=== PATIENT | male | born 1955 | race American Indian/Alaskan Native ===

== ENCOUNTER 2016-12-13 02:07 | Observation (INO) | payer MEDICAID ==
[2016-12-13 02:07] VITALS: BMI 25.5
--- NOTE | 2016-12-13 02:31 | C.PDOC ---
History Of Present Illness pt has been drinking heavily and fell. co. left chest wall discomfort and right hip pain. Denies loc. remembers falling at home. Speaking in complete sentences - HPI Time Seen by Provider: 12/13/16 02:30 Chief Complaint (Nursing): Trauma History Per: Patient History/Exam Limitations: no limitations Onset/Duration Of Symptoms: Hrs Injury Occurred (Timing): Hours Ago: (3-4) Location Of Injury: Right: Hip, Left: Chest Severity: Moderate Pain Scale Rating Of: 4 Recent travel outside of the [place]: No Additional History Per: Patient - Fall Fall:Prior To Injury: Other (alcohol abuse) Past Medical History Reviewed: Historical Data, Nursing Documentation, Vital Signs Vital Signs: Last Vital Signs Temp 97.5 F L 12/13/16 02:16 Pulse 81 12/13/16 02:16 Resp 14 12/13/16 02:16 BP 121/76 12/13/16 02:16 Pulse Ox 96 12/13/16 05:40 - Medical History PMH: Arthritis (B/L KNEE PAIN), Depression, Gastritis, HTN, Pancreatitis, Peripheral Edema, Seizures (April,) Denies: HIV, Kidney Stones, Chronic Kidney Disease, Sexually Transmitted Disease - [facility] Procedures ALCOHOL DETOXIFICATION (05/03/13) DETOXIFICATION SERVICES FOR SUBSTANCE ABUSE TREATMENT (11/26/16) EXCISION OF DESCENDING COLON, ENDO, DIAGN (03/14/16) EXCISION OF STOMACH, ENDO, DIAGN (11/26/16) GROUP PSYCHOTHERAPY (01/24/16) TRANSFUSE NONAUT RED BLOOD CELLS IN PERIPH VEIN, PERC (07/28/16) Family History: States: No Known Family Hx - Social History Hx Tobacco Use: No (quit 2 months now) Hx Alcohol Use: Yes (1/2 to 1 pint vodka per day.) Hx Substance Use: No (Patient denies.) - Immunization History Hx Tetanus Toxoid Vaccination: No Hx Influenza Vaccination: No Hx Pneumococcal Vaccination: No Review Of Systems Constitutional: Negative for: Fever, Chills ENT: Negative for: Throat Pain Cardiovascular: Negative for: Chest Pain, Palpitations Respiratory: Negative for: Shortness of Breath, SOB with Excertion, Pleuritic Pain, Wheezing Gastrointestinal: Negative for: Nausea, Vomiting, Abdominal Pain Genitourinary: Negative for: Dysuria Musculoskeletal: Positive for: Other (r hip pain). Negative for: Neck Pain, Shoulder Pain, Back Pain Skin: Negative for: Rash, Lesions, Jaundice Neurological: Negative for: Weakness, Altered Mental Status, Dizziness Psych: Negative for: Anxiety Physical Exam - Physical Exam Appears: Non-toxic, No Acute Distress Skin: Warm, Dry Head: Normacephalic Eye(s): bilateral: Normal Inspection Oral Mucosa: Moist Neck: Trachea Midline, No Midline Cervical Tenderness, No Step Off Deformity, Supple Chest: Symmetrical, No Deformity, No Tenderness Cardiovascular: Rhythm Regular Respiratory: No Rales, No Rhonchi, No Wheezing Gastrointestinal/Abdominal: Soft, No Tenderness, No Distention, No Guarding, No Rebound Back: Normal Inspection Extremity: Tenderness (r hip), No Calf Tenderness Extremity: Right: Bony Point Tenderness (hip), Limited ROM To Joint (due to discomfort) Neurological/Psych: Oriented x3, Normal Speech, Normal Cognition Gait: Unable To Assess ED Course And Treatment - Laboratory Results Result Diagrams: 12/13/16 03:00 12/13/16 03:00 O2 Sat by Pulse Oximetry: 96 Pulse Ox Interpretation: Normal - CT Scan/US CT Other Rad Studies (CT/US): Read By Radiologist, Radiology Report Reviewed CT/US Interpretation: CT Head IMPRESSION: 1. No intracranial hemorrhage. 2. Incidental/non-acute findings. CT Cervical IMPRESSION: 1. No fracture. 2. Incidental/non-acute findings. CT Hip IMPRESSION: 1. No fracture. 2. Incidental/non-acute findings. CT Chest Impression: 1. No CT evidence of visceral injury. 2. Incidental/non-acute findings. CT Abdomen/Pelvis IMPRESSION: 1. No CT evidence of visceral injury. 2. Incidental/non-acute findings Progress Note: 2:20 pt refused motrin for pain Disposition Counseled Patient/Family Regarding: Studies Performed, Diagnosis, Need For Followup - Disposition Disposition Time: 02:31 Condition: FAIR - Clinical Impression Clinical Impression: Alcohol abuse, Alcohol intoxication, Contusion, Fall Physician Patient Turnover Patient Signed Over To: Jennifer Lott Handoff Comments: pending sobriety
[2016-12-13] MEDS ORDERED: Sodium Chloride 0.9% 1,000 ML IV ONE (02:39)
[2016-12-13 03:08] LABS: BASO # 0.1 K/uL (0.0-0.2); BASO % 1.2 % (0.0-2.0); EOS % 0.2 % (0.0-4.0); HEMATOCRIT 32.9 % (35.0-51.0); LYMPH # 1.3 K/uL (1.0-4.3); LYMPH % 28.2 % (20.0-40.0); MEAN CELL VOLUME 93.9 fL (80.0-94.0); MEAN CORPUSCULAR HEMOGLOBIN 30.9 pg (27.0-31.0); MEAN PLATELET VOLUME 9.8 fL (7.2-11.7); MONO # 0.3 K/uL (0.0-0.8); MONO % 5.9 % (0.0-10.0); NRBC % 0.1 % (0.0-2.0); RED CELL DISTRIBUTION WIDTH 15.1 % (11.5-14.5); WHITE BLOOD COUNT 4.5 K/uL (4.8-10.8)
[2016-12-13 03:22] LABS: CHLORIDE 96 mmol/L (98-107)
[2016-12-13 03:23] LABS: POTASSIUM 4.7 mmol/L (3.6-5.2); SODIUM 146 mmol/L (132-148)
[2016-12-13 03:25] LABS: ALB/GLOB RATIO 1.3 (1.0-2.1); ALKALINE PHOSPHATASE 77 U/L (38-126); ALT/SGPT 44 U/L (21-72); AST/SGOT 139 U/L (17-59); BILIRUBIN,TOTAL 1.3 mg/dL (0.2-1.3); BLOOD UREA NITROGEN 23 mg/dL (9-20); CARBON DIOXIDE 18 mmol/L (22-30); GFR AFRICAN-AMERICAN > 60; GLUCOSE,RANDOM 48 mg/dL (75-110); TOTAL PROTEIN 8.6 g/dL (6.3-8.3)
[2016-12-13 03:26] LABS: CALCIUM 8.6 mg/dl (8.6-10.4)
[2016-12-13 03:40] LABS: ALCOHOL SERUM 385 mg/dl (0-10)
--- NOTE | 2016-12-13 05:21 | CT ---
EXAM: CT Head Without Intravenous Contrast. CLINICAL HISTORY: 61 years old, male; Pain; Headache; Patient HX: 11-26-16; Additional info: Fall, alcoholic TECHNIQUE: Axial computed tomography images of the head/brain without intravenous contrast. This CT exam was performed using one or more of the following dose reduction techniques: automated exposure control, adjustment of the mA and/or kV according to patient size, and/or use of iterative reconstruction technique. COMPARISON: CT - HEAD W/O CONTRAST 11/26/2016 9:54:11 PM FINDINGS: Brain: [id number] atrophy. No intracranial hemorrhage. No mass. No edema. Ventricles: No hydrocephalus. Bones/joints: No acute fracture. Soft tissues: Mild scalp swelling. Sinuses: No acute sinusitis. Mastoid air cells: No mastoid effusion. Orbits: Unremarkable as visualized. IMPRESSION: 1. No intracranial hemorrhage. 2. Incidental/non-acute findings are described above.
--- NOTE | 2016-12-13 05:27 | CT ---
EXAM: CT Cervical Spine Without Intravenous Contrast. CLINICAL HISTORY: 61 years old, male; Pain; Neck pain; Additional info: Fall alcoholic TECHNIQUE: Axial computed tomography images of the cervical spine without intravenous contrast. This CT exam was performed using one or more of the following dose reduction techniques: automated exposure control, adjustment of the mA and/or kV according to patient size, and/or use of iterative reconstruction technique. Coronal and sagittal reformatted images were created and reviewed. COMPARISON: No relevant prior studies available. FINDINGS: Vertebrae: No acute fracture. Degenerative retrolithesis of mid and lower cervical spine. Facet osteoarthrosis within cervical spine. Discs/spinal canal/neural foramina: Severe degenerative disc disease within mid and lower cervical spine. Disc herniations within mid to lower cervical spine, suboptimally evaluated. Mild indentation thecal sac/cord mid cervical spine. Moderate indentation thecal sac/cord lower cervical spine. Neural foraminal narrowing within mid and lower cervical spine. Soft tissues: Unremarkable. Lung apices: Unremarkable as visualized. IMPRESSION: 1. No fracture. 2. Incidental/non-acute findings are described above.
--- NOTE | 2016-12-13 05:29 | CT ---
EXAM: CT Right Lower Extremity Without Intravenous Contrast, Hip. CLINICAL HISTORY: 61 years old, male; Pain; Hip; Right; Patient HX: 10-27-16; Additional info: Fall TECHNIQUE: Axial computed tomography images of the right hip without intravenous contrast. This CT exam was performed using one or more of the following dose reduction techniques: automated exposure control, adjustment of the mA and/or kV according to patient size, and/or use of iterative reconstruction technique. Coronal and sagittal reformatted images were created and reviewed. COMPARISON: CT - ABD PELVIS PO CONTRAST ONLY 11/10/2016 11:07:09 PM FINDINGS: Bones/joints: No acute fracture. No dislocation. Degenerative changes of lower lumbar spine and RIGHT sacroiliac joint. Soft tissues: Unremarkable. Vasculature: Mild atherosclerotic disease. IMPRESSION: 1. No fracture. 2. Incidental/non-acute findings are described above.
--- NOTE | 2016-12-13 05:34 | CT ---
EXAM: CT Chest Without Intravenous Contrast. CLINICAL HISTORY: 61 years old, male; Pain; Chest pain; Additional info: Fall, alcoholic TECHNIQUE: Axial computed tomography images of the chest without intravenous contrast. This CT exam was performed using one or more of the following dose reduction techniques: automated exposure control, adjustment of the mA and/or kV according to patient size, and/or use of iterative reconstruction technique. Coronal and sagittal reformatted images were created and reviewed. COMPARISON: No relevant prior studies available. FINDINGS: Limitations: Lack of intravenous contrast. Lungs: Minimal atelectasis. No consolidation. Few small cysts or bullae. Pleural space: No pneumothorax. No significant effusion. Heart: No cardiomegaly. No significant pericardial effusion. Bones/joints: No acute fracture. Soft tissues: Unremarkable. Vasculature: Mild atherosclerotic disease of aorta. No aortic aneurysm. Lymph nodes: No pathologically enlarged lymph nodes. Upper abdomen: See abdomen CT report for additional details. IMPRESSION: 1. No CT evidence of visceral injury. 2. Incidental/non-acute findings are described above.
--- NOTE | 2016-12-13 05:38 | CT ---
EXAM: CT Abdomen and Pelvis Without Intravenous Contrast. CLINICAL HISTORY: 61 years old, male; Pain; Abdominal pain; Patient HX: 11-10-16; Additional info: Fall, r hip pain TECHNIQUE: Axial computed tomography images of the abdomen and pelvis without intravenous contrast. This CT exam was performed using one or more of the following dose reduction techniques: automated exposure control, adjustment of the mA and/or kV according to patient size, and/or use of iterative reconstruction technique. Coronal and sagittal reformatted images were created and reviewed. COMPARISON: CT - ABD PELVIS PO CONTRAST ONLY 11/10/2016 11:07:09 PM FINDINGS: Limitations: Lack of intravenous contrast. Lower thorax: See chest CT report for additional details. ABDOMEN: Liver: Fatty infiltration. Gallbladder and bile ducts: No calcified stones. No ductal dilation. Pancreas: Unremarkable. No ductal dilation. Spleen: No splenomegaly. Adrenals: No mass. Kidneys and ureters: No renal calculi. No hydronephrosis. Stomach and bowel: No definite mural thickening. No obstruction. Appendix: No findings to suggest acute appendicitis. PELVIS: Bladder: Unremarkable. No stones. Reproductive: Unremarkable as visualized. ABDOMEN and PELVIS: Intraperitoneal space: No significant fluid collection. No free air. Bones/joints: Degenerative changes of spine. No acute fracture. Soft tissues: Unremarkable. Vasculature: Mild varices within upper abdomen. Mild atherosclerotic disease. No abdominal aortic aneurysm. Lymph nodes: No pathologically enlarged lymph nodes. IMPRESSION: 1. No CT evidence of visceral injury. 2. Incidental/non-acute findings are described above.
[2016-12-13 07:50] VITALS: TEMP 98.1
[2016-12-13] MEDS ORDERED: Aluminum Hydroxide/Magnesium Hydroxide Susp (30 mL) PO STA (07:52)
[2016-12-13] MEDS ORDERED: Sodium Chloride 0.9% 500 ML IV ONE ×2 (07:52→08:03)
[2016-12-13] MEDS ORDERED: Aluminum Hydroxide/Magnesium Hydroxide Susp (30 mL) ONE (08:03)
[2016-12-13 11:04] VITALS: BP 139/88; PULSE 89; RESP 20; O2SAT 99
== END 2016-12-13 09:18 | disposition home or self-care (01) ==
LOC: C.ER 02:07 → C.9OBSV 03:41
PROVIDERS: ADMIT Emergency Medicine; ATTEND Emergency Medicine
DX: F10.220 Alcohol dependence with intoxication, uncomplicated (principal); Y90.8 Blood alcohol level of 240 mg/100 ml or more; S20.212A Contusion of left front wall of thorax, initial encounter; S70.01XA Contusion of right hip, initial encounter; K86.0 Alcohol-induced chronic pancreatitis; I10 Essential (primary) hypertension; G40.909 Epilepsy, unspecified, not intractable, without status epilepticus; M17.0 Bilateral primary osteoarthritis of knee; W19.XXXA Unspecified fall, initial encounter; Y92.009 Unspecified place in unspecified non-institutional (private) residence as the place of occurrence of the external cause

== ENCOUNTER 2016-12-16 01:27 | Inpatient (IN) | payer MEDICAID ==
[2016-12-16 01:27] VITALS: BMI 25.5
[2016-12-16] MEDS ORDERED: Sodium Chloride 0.9% 1,000 ML IV ONE (01:57)
[2016-12-16 02:12] LABS: EOS # 0.1 K/uL (0.0-0.7); LYMPH # 1.3 K/uL (1.0-4.3); MONO # 0.3 K/uL (0.0-0.8)
--- NOTE | 2016-12-16 02:13 | C.PDOC ---
History Of Present Illness 61 year old patient, with a past medical history of chronic pancreatitis, arthritis, hypertension, gastritis, and peripheral edema, presents to the ED complaining of a syncopal episode just prior to arrival. Patient states he was doing dishes and then recalls being on the floor. Patient also complains of mild epigastric pain. Patient had a similar presentation of his symptoms recently. Patient denies chest pain, shortness of breath, nausea, vomiting, diarrhea, back pain, numbness, weakness, or neck pain. Time Seen by Provider: 12/16/16 01:51 Chief Complaint (Nursing): Chest Pain History Per: Patient History/Exam Limitations: no limitations Onset/Duration Of Symptoms: Mins (prior to arrival) Current Symptoms Are (Timing): Gone Number Of Syncopal Episodes: 1 Activity At Onset Of Symptoms: Standing Associated Symptoms Preceding Syncopal Episode: No Predromal Symptoms (Sudden Onset) Fall Associated With With Symptoms: No Injury As Result Of Fall Recent travel outside of the [place]: No Additional History Per: Prior Records Past Medical History Reviewed: Historical Data, Nursing Documentation, Vital Signs Vital Signs: Last Vital Signs Temp 98.3 F 12/16/16 01:39 Pulse 82 12/16/16 04:41 Resp 20 12/16/16 04:41 BP 136/84 12/16/16 01:39 Pulse Ox 100 12/16/16 04:41 - Medical History PMH: Arthritis (B/L KNEE PAIN), Depression, Gastritis, HTN, Pancreatitis, Peripheral Edema, Seizures (April,) - [facility] Procedures ALCOHOL DETOXIFICATION (05/03/13) DETOXIFICATION SERVICES FOR SUBSTANCE ABUSE TREATMENT (11/26/16) EXCISION OF DESCENDING COLON, ENDO, DIAGN (03/14/16) EXCISION OF STOMACH, ENDO, DIAGN (11/26/16) GROUP PSYCHOTHERAPY (01/24/16) TRANSFUSE NONAUT RED BLOOD CELLS IN PERIPH VEIN, PERC (07/28/16) Family History: States: Unknown Family Hx - Social History Hx Tobacco Use: No (quit 2 months now) Hx Alcohol Use: Yes (1/2 to 1 pint vodka per day.) Hx Substance Use: No (Patient denies.) - Immunization History Hx Tetanus Toxoid Vaccination: No Hx Influenza Vaccination: No Hx Pneumococcal Vaccination: No Review Of Systems Except As Marked, All Systems Reviewed And Found Negative. Cardiovascular: Negative for: Chest Pain Respiratory: Negative for: Shortness of Breath Gastrointestinal: Positive for: Abdominal Pain. Negative for: Nausea, Vomiting , Diarrhea Musculoskeletal: Negative for: Neck Pain, Back Pain Neurological: Positive for: Other (syncope). Negative for: Weakness, Numbness Physical Exam - Physical Exam Appears: Non-toxic, No Acute Distress Skin: Warm, Dry Head: Atraumatic, Normacephalic Eye(s): bilateral: Normal Inspection, PERRL, EOMI Ear(s): Bilateral: Normal Nose: Normal Oral Mucosa: Moist Throat: Normal Neck: Normal ROM, Supple Chest: Symmetrical Cardiovascular: Rhythm Regular Respiratory: Normal Breath Sounds, No Rales, No Rhonchi, No Wheezing Gastrointestinal/Abdominal: Soft, Tenderness (mild epigastric) Back: Normal Inspection, No CVA Tenderness Extremity: Normal ROM Neurological/Psych: Oriented x3, Normal Speech, Normal Cognition Gait: Steady ED Course And Treatment - Laboratory Results Result Diagrams: 12/16/16 02:09 12/16/16 02:09 O2 Sat by Pulse Oximetry: 99 (RA) Pulse Ox Interpretation: Normal Medical Decision Making Medical Decision Making: Plan: -Head CT -EKG -Labs -Chest XR -IV fluids EKG: sinus rhythm 65 bpm Non-specific ST/T wave changes Chest XR: negative. no acute disease. Head CT: Read by Radiologist (Rian Clifford MD) EXAM: CT Head Without Intravenous Contrast. CLINICAL HISTORY: 61 years old, male; Pain; Headache; Additional info: Syncope TECHNIQUE: Axial computed tomography images of the head/brain without intravenous contrast. This CT exam was performed using one or more of the following dose reduction techniques: automated exposure control, adjustment of the mA and/or kV according to patient size, and/or use of iterative reconstruction technique. COMPARISON: CT - HEAD W/O CONTRAST 12/13/2016 4:23:48 AM FINDINGS: Brain: [id number] atrophy. No intracranial hemorrhage. No mass. No definite edema. Ventricles: No hydrocephalus. Bones/joints: No acute fracture. Soft tissues: Mild scalp swelling. Sinuses: No acute sinusitis. Mastoid air cells: No mastoid effusion. Orbits: Unremarkable as visualized. IMPRESSION: 1. No acute intracranial abnormality. 2. Incidental/non-acute findings are described above. Disposition - Disposition Disposition: HOSPITALIZED Disposition Time: 04:46 Condition: FAIR - Clinical Impression Clinical Impression: Syncope - Scribe Statement The provider has reviewed the documentation as recorded by the Scribe Venecia Silveira Provider Attestation: All medical record entries made by the Scribe were at my direction and personally dictated by me. I have reviewed the chart and agree that the record accurately reflects my personal performance of the history, physical exam, medical decision making, and the department course for this patient. I have also personally directed, reviewed, and agree with the discharge instructions and disposition.
[2016-12-16 02:22] LABS: BASO % 1.7 % (0.0-2.0); EOS % 3.1 % (0.0-4.0); LYMPH % 44.2 % (20.0-40.0); MEAN CELL VOLUME 92.8 fL (80.0-94.0); MEAN CORPUSCULAR HEMOGLOBIN 30.4 pg (27.0-31.0); MEAN CORPUSCULAR HGB CONC 32.8 g/dL (33.0-37.0); MEAN PLATELET VOLUME 9.4 fL (7.2-11.7); MONO % 9.9 % (0.0-10.0); NRBC % 0.1 % (0.0-2.0)
[2016-12-16 02:28] LABS: CHLORIDE 99 mmol/L (98-107); SODIUM 145 mmol/L (132-148)
[2016-12-16 02:29] LABS: POTASSIUM 4.4 mmol/L (3.6-5.2)
[2016-12-16 02:30] LABS: GFR AFRICAN-AMERICAN > 60
[2016-12-16 02:31] LABS: ALB/GLOB RATIO 1.2 (1.0-2.1); ALKALINE PHOSPHATASE 66 U/L (38-126); ALT/SGPT 47 U/L (21-72); AST/SGOT 87 U/L (17-59); BILIRUBIN,TOTAL 0.8 mg/dL (0.2-1.3); BLOOD UREA NITROGEN 16 mg/dL (9-20); CALCIUM 8.5 mg/dl (8.6-10.4); CARBON DIOXIDE 25 mmol/L (22-30); GLUCOSE,RANDOM 73 mg/dL (75-110); TOTAL PROTEIN 8.1 g/dL (6.3-8.3)
[2016-12-16] MEDS ORDERED: Sodium Chloride 0.9% 1,000 ML ONE (03:35)
[2016-12-16 03:41] LABS: URINE BACTERIA RARE (<OCC); URINE BILIRUBIN NEGATIVE (NEGATIVE); URINE BLOOD NEGATIVE (NEGATIVE); URINE COLOR Yellow (YELLOW); URINE GLUCOSE (UA) NORMAL (Normal); URINE KETONE 1+ mg/dL (NEGATIVE); URINE LEUKOCYTE ESTERASE NEG Leu/uL (Negative); URINE PROTEIN NEGATIVE (NEGATIVE); URINE UROBILINOGEN NORMAL mg/dL (0.2-1.0); WBC URINE 5 /hpf (0-5)
--- NOTE | 2016-12-16 03:54 | CT ---
EXAM: CT Head Without Intravenous Contrast. CLINICAL HISTORY: 61 years old, male; Pain; Headache; Additional info: Syncope TECHNIQUE: Axial computed tomography images of the head/brain without intravenous contrast. This CT exam was performed using one or more of the following dose reduction techniques: automated exposure control, adjustment of the mA and/or kV according to patient size, and/or use of iterative reconstruction technique. COMPARISON: CT - HEAD W/O CONTRAST 12/13/2016 4:23:48 AM FINDINGS: Brain: [id number] atrophy. No intracranial hemorrhage. No mass. No definite edema. Ventricles: No hydrocephalus. Bones/joints: No acute fracture. Soft tissues: Mild scalp swelling. Sinuses: No acute sinusitis. Mastoid air cells: No mastoid effusion. Orbits: Unremarkable as visualized. IMPRESSION: 1. No acute intracranial abnormality. 2. Incidental/non-acute findings are described above.
[2016-12-16] MEDS ORDERED: Oxycodone/Acetaminophen 5/325 mg Tab PO PRN (04:33)
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
[2016-12-16 09:16] LABS: THYROID STIMULATING HORMONE 1.55 mIU/L (0.46-4.68)
[2016-12-16] MEDS ORDERED: Thiamine 100 mg/ml Inj IM SCH (10:00)
[2016-12-16] MEDS ORDERED: Pantoprazole 40 mg EC Tab PO ONE (11:38)
[2016-12-16] MEDS: Pantoprazole 40 mg EC Tab PO SCH (11:45)
--- NOTE | 2016-12-16 12:22 | RAD ---
PROCEDURE: CHEST RADIOGRAPH, 1 VIEW HISTORY: Chest pain COMPARISON: 11/10/2016. FINDINGS: LUNGS: The lungs are well inflated and clear. PLEURA: No pneumothorax or pleural fluid seen. CARDIOVASCULAR: Normal. OSSEOUS STRUCTURES: No significant abnormalities. VISUALIZED UPPER ABDOMEN: Normal. OTHER FINDINGS: None. IMPRESSION: No active pulmonary disease.
--- NOTE | 2016-12-16 15:11 | VASCLAB ---
PROCEDURE: HISTORY: syncope COMPARISON: None available. TECHNIQUE: Grayscale and duplex Doppler evaluation of the cervical carotid and vertebral arteries were performed. The common carotid, carotid bifurcations and cervical Internal Carotid Artery (ICA) and proximal External Carotid Artery (ECA) were evaluated. The vertebral arteries were evaluated for gross patency and flow direction. Report prepared by Brennen Miller, BS, RVT FINDINGS: RIGHT CAROTID ARTERIES: 1. Common Carotid Artery: No significant focal plaque formation of the right common carotid artery. Maximum Peak Systolic velocity: 87 cm/sec: End-diastolic velocity 17 cm/sec. 2. Carotid Bifurcation: Calcific plaque formation. Maximum Peak Systolic velocity: 68 cm/sec: End-diastolic velocity 10 cm/sec. 3. Internal Carotid Artery: Minimal plaque formation of the right proximal ICA which does not result in hemodynamically significant stenosis. Plaque description: Calcific 3.1. Proximal Segment: Peak systolic velocity 49 cm/sec: End-diastolic velocity 19 cm/sec - % stenosis 0-15% 3.2. Middle Segment: Peak systolic velocity 54 cm/sec: End-diastolic velocity 26 cm/sec - % stenosis 0-15% 3.3. Distal Segment: Peak systolic velocity 87 cm/sec: End-diastolic velocity 32 cm/sec - % stenosis 0-15% 4. External Carotid Artery: No significant focal plaque formation. Peak systolic velocity 83 cm/sec 5. ICA/CCA Ratio: 1.0 LEFT CAROTID ARTERIES: 1. Common Carotid Artery: No significant focal plaque formation of the left common carotid artery. Maximum Peak Systolic velocity: 95 cm/sec: End-diastolic velocity 18 cm/sec. 2. Carotid Bifurcation: Homogeneous plaque formation. Maximum Peak Systolic velocity: 75 cm/sec: End-diastolic velocity 17 cm/sec. 3. Internal Carotid Artery: Minimal plaque formation of the left proximal ICA which does not result in hemodynamically significant stenosis. Plaque description: Homogeneous 3.1. Proximal Segment: Peak systolic velocity 65 cm/sec: End-diastolic velocity 23 cm/sec - % stenosis 0-15% 3.2. Middle Segment: Peak systolic velocity 84 cm/sec: End-diastolic velocity 35 cm/sec - % stenosis 0-15% 3.3. Distal Segment: Peak systolic velocity 75 cm/sec: End-diastolic velocity 31 cm/sec - % stenosis 0-15% 4. External Carotid Artery: No significant focal plaque formation. Peak systolic velocity 100 cm/sec 5. ICA/CCA Ratio: 0.9 VERTEBRAL ARTERIES: 1. Right Vertebral Artery: The right vertebral artery flow direction is antegrade. 2. Left Vertebral Artery: The left vertebral artery flow direction is antegrade. OTHER FINDINGS: 1. Right Brachial Blood pressure: 120 mmHg. 2. Left Brachial Blood pressure: 124 mmHg. IMPRESSION: RIGHT: Duplex scan does not suggest hemodynamically significant stenosis of the right extracranial carotid arteries. LEFT: Duplex scan does not suggest hemodynamically significant stenosis of the left extracranial carotid arteries.
[2016-12-17 06:36] LABS: CHLORIDE 89 mmol/L (98-107)
[2016-12-17 06:37] LABS: POTASSIUM 4.1 mmol/L (3.6-5.2)
[2016-12-17 06:39] LABS: ALB/GLOB RATIO 1.3 (1.0-2.1); ALKALINE PHOSPHATASE 57 U/L (38-126); ALT/SGPT 30 U/L (21-72); AST/SGOT 67 U/L (17-59); BILIRUBIN,TOTAL 1.3 mg/dL (0.2-1.3); BLOOD UREA NITROGEN 15 mg/dL (9-20); CARBON DIOXIDE 31 mmol/L (22-30); GFR AFRICAN-AMERICAN > 60; GLUCOSE,RANDOM 82 mg/dL (75-110); TOTAL PROTEIN 7.3 g/dL (6.3-8.3)
[2016-12-17 06:40] LABS: CALCIUM 8.2 mg/dl (8.6-10.4)
[2016-12-17 06:49] LABS: BASO % 0.8 % (0.0-2.0); EOS # 0.1 K/uL (0.0-0.7); EOS % 2.9 % (0.0-4.0); HEMATOCRIT 26.3 % (35.0-51.0); LYMPH # 1.3 K/uL (1.0-4.3); LYMPH % 41.5 % (20.0-40.0); MEAN CELL VOLUME 91.7 fL (80.0-94.0); MEAN CORPUSCULAR HEMOGLOBIN 30.4 pg (27.0-31.0); MEAN CORPUSCULAR HGB CONC 33.1 g/dL (33.0-37.0); MEAN PLATELET VOLUME 9.6 fL (7.2-11.7); MONO # 0.3 K/uL (0.0-0.8); MONO % 8.8 % (0.0-10.0); NRBC % 0.2 % (0.0-2.0); RED CELL DISTRIBUTION WIDTH 15.2 % (11.5-14.5); WHITE BLOOD COUNT 3.2 K/uL (4.8-10.8)
[2016-12-17 06:58] LABS: SODIUM 131 mmol/L (132-148)
--- NOTE | 2016-12-17 08:58 | CON ---
DATE: 12/17/2016 ROOM: 652, bed B. REASON FOR CONSULTATION: Syncopal attack. CHIEF COMPLAINT: The patient was brought into [facility] with a history of syncopal attack at [facility]. From neurological point of view, I was called in to evaluate him for further management. HISTORY OF PRESENTING ILLNESS: The patient is a 61-year-old, right-handed, -[place]rist[place] male, [facility]. All he remembers, he was cooking with his girlfriend. After cooking, when she left, all he remembers, he was cleaning the utensils, then he realized he woke up from the floor. It seems to be, looks like for him, to think about 10 minutes. After he woke up, he called 911 for hel p. At the scene, no sign of bowel or bladder incontinence. No bitten tongue. From the fall, he bruised his right side of the body. He had a similar episode a month ago. History of blunt head injury in the past. No history of seizure disorder, never been on any medication for the same. PAST MEDICAL HISTORY: Syncopal attack, history of pancreatitis, alcohol abuse, history of posttrauma tic brain injury. ALLERGIES: SHELLFISH AND MILK. REVIEW OF SYSTEMS: As per H and P. MEDICATIONS: Colace, folic acid, Librium, Ativan p.r.n., Protonix, vitamin B1 and Zofran. PHYSICAL EXAMINATION: VITAL SIGNS: Blood pressure lying 155/84, sitting 142/97, standing 124/92. There is a drop signific antly in systolic blood pressure while he was standing. Pulse rate is 80, regular, respiratory rate 16, temperature afebrile. NECK: Supple. No carotid bruit. HEART SOUNDS: Regular. CHEST: Fair air entry. EXTREMITIES: Proximal as well as distal muscle groups atrophy. NEUROLOGIC EXAMINATION: MENTAL STATUS: He is awake, alert, oriented to person and place. He knows the year. He knows the resident. He follows 1-2 step commands. No right and left confusion. No sign of depression. No si gn of suicidal ideation. Significant retrograde amnesia. No confabulation. CRANIAL NERVES: Visual field intact. Pupils react to light. Extraocular movement normal. No nysta gmus. No facial sensory deficit, no facial asymmetry. Hearing is normal. Tongue is midline. Good gag. MOTOR: On outstretched hand with eyes closed, sensory tremor noted. No asterixis. DEEP TENDON REFLEXES: Absent. Plantars are downgoing. Feet is flat feet. SENSORY: Posterior column is intact, just significant distal sensorimotor neuropathy. COORDINATION: Vkfbwy-uopb-fjepha dysmetria noted. GAIT: Broad based gait. He has been using a cane. CONCLUSION: Upon reviewing his history and neurological examination, the patient been presenting wit h possible orthostatic changes induced syncopal attack. From neurological point of view, seizures sh ould be ruled out. However, I do not want to put him on any medication at this time. His syncope pr obably related to alcoholic-induced syncopal attack. He also showed significant bilateral distal sensorimotor neuropathy, secondary to his alcohol abuse i n the past. He had a history of trauma in the past as well as syncope in the past. The patient should have MRI o f the brain to rule out any intracranial pathology. CT of the head reported as negative for acute pathology. LABORATORY DATA: WBC 3.0, hemoglobin 9.5, hematocrit 29.0, platelets 126. PT 11.4, INR 1.0, PTT 29. Sodium 131, potassium 4.1, chloride 99, bicarbonate 31, BUN 15, creatinine 0.9, GFR more than 60, g lucose 82, AST 67, lipase 442. Vitamin D is 13.6. Prolactin 13.0. TSH 1.55. RECOMMENDATIONS: 1. Proper hydration. Keep the blood pressure around mean arterial pressure 100. 2. MRI of the brain without gadolinium to rule out any structural pathology. 3. EEG to rule out any seizure activities. 4. Head in elevation. The patient should get physical therapy to improve his ambulation. Alcohol abstinence has been discussed with him. The patient agreed he would like to quit alcohol. T he patient needs a social service evaluation. Christiano Koch MD cc: [id number] TT: 12/17/2016 08:57:33 Confirmation # [id number] Dictation # [id number]
[2016-12-17] MEDS ORDERED: Ergocalciferol 50,000 Intl Units Cap PO SCH (09:00)
[2016-12-17] MEDS: Pantoprazole 40 mg EC Tab PO SCH (09:19)
[2016-12-17] MEDS: Sodium Chloride 0.9% 1,000 ML IV SCH ×3 (09:26→22:37)
--- NOTE | 2016-12-17 09:50 | HP ---
The patient admitted to the hospital with chief complaint of weakness, fatigue, tiredness. The patie nt came to the hospital and advised admission. The patient had a history of alcoholism. The patient found fallen on the floor. PHYSICAL EXAMINATION: GENERAL: The patient is awake, alert, oriented. VITAL SIGNS: Temperature 98, pulse 90. HEENT: Within normal limits. NECK: Supple. CHEST: Symmetrical. HEART: Regular. ABDOMEN: Soft. EXTREMITIES: No edema. ASSESSMENT: The patient suffers from alcoholism. Rule out seizure. The patient on bedrest, support moses care, neuro check. Familia Harris MD cc: [id number] TT: 12/16/2016 16:20:47 sn
--- NOTE | 2016-12-17 10:03 | CP.PCM.PN ---
Subjective - Date & Time of Evaluation Date of Evaluation: 12/17/16 Time of Evaluation: 07:05 - Subjective Subjective: PGY2 Medicine Note - Dr. Rosen's Service: Patient seen and examined at bedside this AM. Patient reports abdominal pain with eating. Patient vomited multiple times last night. Patient is concerned about why he keeps passing out. Patient denies fever, chills, chest pain, SOB, nausea, diarrhea, constipation, dysuria. Objective - Vital Signs/Intake and Output Vital Signs (last 24 hours): Temp Pulse Resp BP Pulse Ox 99.1 F 80 18 147/80 97 12/17/16 07:29 12/17/16 07:29 12/17/16 07:29 12/17/16 07:29 12/17/16 07:29 Intake and Output: 12/17/16 12/17/16 06:59 18:59 Intake Total 360 Output Total 500 Balance -140 - Medications Medications: Current Medications Chlordiazepoxide (Librium) 25 mg PO TID [facility] PRN Reason: Taper Stop: 12/20/16 05:59 Last Admin: 12/17/16 09:18 Dose: 25 mg Docusate Sodium (Colace) 100 mg PO BID [facility] Last Admin: 12/17/16 09:19 Dose: 100 mg Ergocalciferol (Drisdol 50,000 Intl Units Cap) 1 cap PO Q7D [facility] Last Admin: 12/17/16 09:18 Dose: 1 cap Folic Acid (Folic Acid) 1 mg PO DAILY [facility] Last Admin: 12/17/16 09:18 Dose: 1 mg Sodium Chloride (Sodium Chloride 0.9%) 1,000 mls @ 150 mls/hr IV .Q6H40M [facility] Last Admin: 12/17/16 09:26 Dose: 150 mls/hr Lorazepam (Ativan) 1 mg IVP Q4H PRN PRN Reason: Seizure activity Last Admin: 12/16/16 10:37 Dose: 1 mg Morphine Sulfate (Morphine) 2 mg IVP Q4 PRN PRN Reason: Pain, severe (8-10) Last Admin: 12/17/16 09:23 Dose: 2 mg Ondansetron HCl (Zofran Inj) 4 mg IVP Q6H PRN PRN Reason: Nausea/Vomiting Last Admin: 12/16/16 14:54 Dose: 4 mg Pantoprazole Sodium (Protonix Ec Tab) 40 mg PO DAILY [facility] Last Admin: 12/17/16 09:19 Dose: 40 mg Thiamine HCl (Vitamin B1 Tab) 100 mg PO DAILY [facility] Last Admin: 12/17/16 09:18 Dose: 100 mg - Labs Labs: 12/17/16 06:00 12/17/16 06:00 PT 11.4 SECONDS (9.7-12.2) 12/16/16 02:09 INR 1.0 12/16/16 02:09 APTT 29 SECONDS (21-34) 12/16/16 02:09 - Constitutional Appears: Non-toxic, No Acute Distress - Head Exam Head Exam: NORMAL INSPECTION - Eye Exam Eye Exam: EOMI - ENT Exam ENT Exam: Mucous Membranes Moist - Respiratory Exam Respiratory Exam: Clear to Ausculation Bilateral, NORMAL BREATHING PATTERN. absent: Rales, Rhonchi, Wheezes - Cardiovascular Exam Cardiovascular Exam: REGULAR RHYTHM, +S1, +S2. absent: Gallop, Rubs, Murmur - GI/Abdominal Exam GI & Abdominal Exam: Guarding, Soft, Tenderness, Normal Bowel Sounds - Extremities Exam Extremities Exam: Normal Capillary Refill. absent: Pedal Edema - Neurological Exam Neurological Exam: Alert, Oriented x3 - Psychiatric Exam Psychiatric exam: Normal Affect, Normal Mood - Skin Skin Exam: Normal Color, Warm Assessment and Plan - Assessment and Plan (Free Text) Assessment: Syncope - Head CT negative for acute intracranial abnormality - EKG: sinus rhtythm with first degree AV block at 65bpm, prolonged QT - Follow up: ECHO EEG Brain MRI - Carotid US - negative - B12 640, TSH 1.55, RPR negative, HIV negative, prolactin 13 - possibly secondary to orthostatic hypotension: Lyin/84, sitting 142/97, standing 124/92 - Neurology consult - Dr. Koch - help appreciated, f/u recommendations Vitamin D deficiency - Vitamin D 13.6 - Ergocalciferol [id number] Q7D Pancytopenia - WBC 3, Hgb 9.5, platelets 126, neutrophils 1.2 - F/U MEGHA - HIV negative Chronic pancreatitis - Lipase 442 - Clear liquid diet - NS @150cc/hr - encourage fluid intake Constipation - Colace 100mg PO BID Alcohol Abuse - Aspiration and seizure precautions - Librium taper - Ativan IVP PRN seizure - Alcohol withdrawal assessment Q1 - Thiamine and Folic Acid Transaminitis Likely secondary to alcohol abuse and hepatitis C As per chart, pt had positive hep C and was made aware of this in past. Patient admitted that he is currently not taking his Hep C medication. He understands that he can be treated. Discussed importance of treatment for hep C in length. He was urged to follow up with either ID or GI after discharge for treatment. Prophylaxis SCD Protonix 40mg PO daily
--- NOTE | 2016-12-17 11:58 | CARD ---
APPROVED REPORT EKG Measurement Heart [id number] <Conclusion> Sinus rhythm with 1st degree AV block Nonspecific T wave abnormality Prolonged QT Abnormal ECG
[2016-12-17 12:14] LABS: IRON 89 ug/dL (49-181)
--- NOTE | 2016-12-17 12:39 | CARD ---
APPROVED REPORT EXAM: Two-dimensional and M-mode echocardiogram with Doppler and color Doppler. Other Information Quality : GoodRhythm : NSR INDICATION Diastolic Syncope RISK FACTORS Hypertension Hyperlipidemia M-Mode DIMENSIONS RVDd2.78 (2.1-3.2cm)Left Atrium (MM)4.06 (2.5-4.0cm) IVSd1.25 (0.7-1.1cm)Aortic Root3.09 (2.2-3.7cm) LVDd5.17 (4.0-5.6cm)Aortic Cusp Exc.2.26 (1.5-2.0cm) PWd1.28 (0.7-1.1cm)FS (%) 45 % LVDs2.85 (2.0-3.8cm)LVEF (%)76 (>50%) Mitral Valve MV E Qdwfwtlu18.9cm/sMV A Aujqhqks61.3cm/sE/A ratio0.6 TDI E/Lateral E'0.0E/Medial E'0.0 Tricuspid Valve TR Peak Ukebnkhy411gr/sTR Peak Gr.74imFoRZZG52mgNn LEFT VENTRICLE The left ventricle is normal size. There is mild concentric left ventricular hypertrophy. Left ventricle systolic function is normal. The Ejection Fraction is >70%. There is normal LV segmental wall motion. Transmitral Doppler flow pattern is Grade I-abnormal relaxation pattern. There is no ventricular septal defect visualized. RIGHT VENTRICLE The right ventricle is normal size. The right ventricular systolic function is normal. ATRIA The left atrium is borderline dilated. The right atrium size is normal. AORTIC VALVE The aortic valve is trileaflet. The aortic valve is normal in structure. No aortic regurgitation is present. There is no aortic valvular stenosis. MITRAL VALVE The mitral valve is normal in structure. There is no evidence of mitral valve prolapse. There is no mitral valve regurgitation noted. TRICUSPID VALVE The tricuspid valve is normal in structure. There is trace tricuspid regurgitation. Right ventricular systolic pressure is estimated at less than 30 mmHg. There is no pulmonary hypertension. PULMONIC VALVE The pulmonary valve is normal in structure. There is trace pulmonic valvular regurgitation. GREAT VESSELS The IVC is normal in size and collapses >50% with inspiration. PERICARDIAL EFFUSION There is no pericardial effusion. <Conclusion> There is mild concentric left ventricular hypertrophy. Left ventricle systolic function is normal. The Ejection Fraction is >70%. Transmitral Doppler flow pattern is Grade I-abnormal relaxation pattern. The left atrium is borderline dilated.
--- NOTE | 2016-12-17 16:28 | MRI ---
PROCEDURE: MRI BRAIN WITHOUT CONTRAST HISTORY: syncope COMPARISON: Comparison is made to the previous CT dated 12/16/2016 TECHNIQUE: Multiplanar, multisequence MR images of the brain were obtained without intravenous contrast enhancement. FINDINGS: HEMORRHAGE: None DWI: No evidence of an acute or early subacute infarction. BRAIN PARENCHYMA: No mass effect or edema. Mild to moderate atrophy. VENTRICLES: Unremarkable. No hydrocephalus. CRANIUM: Unremarkable. ORBITS: Grossly unremarkable. PARANASAL SINUSES/MASTOIDS: Clear VASCULAR SYSTEM: Skull base flow voids intact. OTHER FINDINGS: None. IMPRESSION: No evidence of acute pathology in the brain. No evidence of mass lesion mass effect or midline shift. Esqq-sf-rvebwewd atrophy.
[2016-12-18] MEDS: Sodium Chloride 0.9% 1,000 ML IV SCH ×3 (00:42→07:30)
[2016-12-18 06:42] LABS: BASO % 0.6 % (0.0-2.0); EOS # 0.1 K/uL (0.0-0.7); EOS % 4.3 % (0.0-4.0); HEMATOCRIT 25.9 % (35.0-51.0); LYMPH % 37.2 % (20.0-40.0); MEAN CELL VOLUME 93.9 fL (80.0-94.0); MEAN CORPUSCULAR HEMOGLOBIN 32.3 pg (27.0-31.0); MEAN CORPUSCULAR HGB CONC 34.4 g/dL (33.0-37.0); MEAN PLATELET VOLUME 9.7 fL (7.2-11.7); MONO # 0.2 K/uL (0.0-0.8); MONO % 8.9 % (0.0-10.0); NRBC % 0.2 % (0.0-2.0); RED CELL DISTRIBUTION WIDTH 14.6 % (11.5-14.5); WHITE BLOOD COUNT 2.7 K/uL (4.8-10.8)
[2016-12-18 06:43] LABS: CHLORIDE 96 mmol/L (98-107); SODIUM 137 mmol/L (132-148)
[2016-12-18 06:44] LABS: POTASSIUM 3.6 mmol/L (3.6-5.2)
[2016-12-18 06:46] LABS: ALB/GLOB RATIO 1.3 (1.0-2.1); ALKALINE PHOSPHATASE 45 U/L (38-126); ALT/SGPT 28 U/L (21-72); AST/SGOT 47 U/L (17-59); BILIRUBIN,TOTAL 1.2 mg/dL (0.2-1.3); BLOOD UREA NITROGEN 9 mg/dL (9-20); CALCIUM 7.7 mg/dl (8.6-10.4); CARBON DIOXIDE 28 mmol/L (22-30); GFR AFRICAN-AMERICAN > 60; GLUCOSE,RANDOM 91 mg/dL (75-110); TOTAL PROTEIN 6.4 g/dL (6.3-8.3)
--- NOTE | 2016-12-18 07:41 | PN ---
DATE: 12/18/2016 NEUROLOGICAL PROBLEM: Syncopal attack. PHYSICAL EXAMINATION: VITAL SIGNS: Blood pressure 141/83, mean arterial pressure 102, respiratory rate 16, temperature afe brile. NEUROLOGIC: The patient is arousable on calling his name. He follows all commands. Complaining he could not get sleep because of his abdominal discomfort. The patient is on clear liquid diet. He is demanding for his solid diet. The rest of the examination is unchanged. WORKUP: Electroencephalogram reviewed by me. No active focal seizures or focal slowing noted. No s eizure activities noted. The patient is neurologically stable. Continue the present management. Christiano Koch MD cc: [id number] TT: 12/18/2016 07:40:32 Confirmation # [id number] Dictation # [id number]
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
[2016-12-18] MEDS: Pantoprazole 40 mg EC Tab PO SCH (09:25)
--- NOTE | 2016-12-18 10:00 | EEG ---
DATE: 12/16/2016 This is a 16-channel electroencephalogram of awake and drowsy adult. During the study, photic stimul ation was performed, hyperventilation was not performed. The resting electroencephalogram consists of 20-30 microvolts fast beat activities noted in bilateral cortical leads, which is superimposed with 3-4 Hz delta activity seen. The photic stimulation did n ot evoke driving response noted at 2-20 Hz. IMPRESSION: This is an abnormal electroencephalogram because of persistent slowing superimposed with fast beta activities, which is probably secondary to the sedation. Please correlate the finding wit h the neurological and radiological studies. However, during the study, neither electroencephalograp hic paroxysmal activities nor focal slowing noted. Christiano Koch MD cc: [id number] TT: 12/18/2016 09:59:30 Confirmation # [id number] Dictation # [id number] en
--- NOTE | 2016-12-19 01:30 | CP.PCM.CON ---
History of Present Illness - History of Present Illness History of Present Illness: Patient seen and evaluated Recurrent syncopial episodes ECHO and stress test negative For Tilt Table Test in am Past Patient History - Infectious Disease Hx of Infectious Diseases: None - Past Medical History & Family History Past Medical History?: Yes - Past Social History Smoking Status: Former Smoker - CARDIAC Hx Hypertension: Yes - PULMONARY Hx Respiratory Disorders: No Hx Tuberculosis: No - NEUROLOGICAL Hx Seizures: Yes (April,) - HEENT Hx HEENT Problems: Yes Hx Cataracts: Yes (Cataract Extraction 2 years ago) - RENAL Hx Chronic Kidney Disease: No Hx Kidney Stones: No - ENDOCRINE/METABOLIC Hx Endocrine Disorders: No - HEMATOLOGICAL/ONCOLOGICAL Hx Human Immunodeficiency Virus (HIV): No - INTEGUMENTARY Hx Dermatological Problems: No - MUSCULOSKELETAL/RHEUMATOLOGICAL Hx Arthritis: Yes (B/L KNEE PAIN) - GASTROINTESTINAL Hx Gastritis: Yes Hx Pancreatitis: Yes - GENITOURINARY/GYNECOLOGICAL Hx Sexually Transmitted Disorders: No - PSYCHIATRIC Hx Depression: Yes Hx Substance Use: No (Patient denies.) - SURGICAL HISTORY Hx Surgeries: Yes Hx Eye Surgery: Yes Other/Comment: head injury 3 mos ago -pt had sutures he stated - ANESTHESIA Hx Anesthesia: Yes Hx Anesthesia Reactions: No Hx Malignant Hyperthermia: No Meds Allergies/Adverse Reactions: Allergies Allergy/AdvReac Type Severity Reaction Status Date / Time Iodinated Contrast Media - Allergy Severe SWELLING Verified 12/16/16 01:43 Oral and shellfish derived Allergy Intermediate RASH Verified 12/16/16 01:43 milk AdvReac Intermediate DIARRHEA Verified 12/16/16 01:43 - Medications Medications: Current Medications Chlordiazepoxide (Librium) 25 mg PO BID [facility] PRN Reason: Taper Stop: 12/20/16 05:59 Last Admin: 12/18/16 17:36 Dose: 25 mg Docusate Sodium (Colace) 100 mg PO BID [facility] Last Admin: 12/18/16 17:36 Dose: 100 mg Ergocalciferol (Drisdol 50,000 Intl Units Cap) 1 cap PO Q7D [facility] Last Admin: 12/17/16 09:18 Dose: 1 cap Folic Acid (Folic Acid) 1 mg PO DAILY [facility] Last Admin: 12/18/16 09:25 Dose: 1 mg Sodium Chloride (Sodium Chloride 0.9%) 1,000 mls @ 150 mls/hr IV .Q6H40M [facility] Last Admin: 12/18/16 07:30 Dose: 150 mls/hr Lorazepam (Ativan) 1 mg IVP Q4H PRN PRN Reason: Seizure activity Last Admin: 12/16/16 10:37 Dose: 1 mg Morphine Sulfate (Morphine) 2 mg IVP Q4 PRN PRN Reason: Pain, severe (8-10) Last Admin: 12/19/16 00:24 Dose: 2 mg Ondansetron HCl (Zofran Inj) 4 mg IVP Q6H PRN PRN Reason: Nausea/Vomiting Last Admin: 12/16/16 14:54 Dose: 4 mg Pantoprazole Sodium (Protonix Ec Tab) 40 mg PO DAILY [facility] Last Admin: 12/18/16 09:25 Dose: 40 mg Thiamine HCl (Vitamin B1 Tab) 100 mg PO DAILY [facility] Last Admin: 12/18/16 09:25 Dose: 100 mg Results - Vital Signs Recent Vital Signs: Last Vital Signs Temp 98.4 F 12/18/16 15:00 Pulse 75 12/18/16 23:30 Resp 20 12/18/16 15:00 BP 123/82 12/18/16 15:00 Pulse Ox 97 12/18/16 15:00 - Labs Result Diagrams: 12/18/16 06:20 12/18/16 06:20
[2016-12-19 06:40] LABS: BASO % 0.8 % (0.0-2.0); EOS # 0.1 K/uL (0.0-0.7); EOS % 4.8 % (0.0-4.0); HEMATOCRIT 26.4 % (35.0-51.0); LYMPH % 35.9 % (20.0-40.0); MEAN CORPUSCULAR HEMOGLOBIN 30.7 pg (27.0-31.0); MONO # 0.3 K/uL (0.0-0.8); MONO % 9.7 % (0.0-10.0); RED CELL DISTRIBUTION WIDTH 14.7 % (11.5-14.5); WHITE BLOOD COUNT 2.7 K/uL (4.8-10.8)
[2016-12-19 06:41] LABS: CHLORIDE 96 mmol/L (98-107); POTASSIUM 3.5 mmol/L (3.6-5.2); SODIUM 137 mmol/L (132-148)
[2016-12-19 06:44] LABS: ALB/GLOB RATIO 1.3 (1.0-2.1); ALKALINE PHOSPHATASE 45 U/L (38-126); ALT/SGPT 23 U/L (21-72); AST/SGOT 56 U/L (17-59); BILIRUBIN,TOTAL 0.9 mg/dL (0.2-1.3); BLOOD UREA NITROGEN 6 mg/dL (9-20); CARBON DIOXIDE 28 mmol/L (22-30); GFR AFRICAN-AMERICAN > 60; GLUCOSE,RANDOM 101 mg/dL (75-110); TOTAL PROTEIN 6.6 g/dL (6.3-8.3)
[2016-12-19 06:45] LABS: CALCIUM 7.8 mg/dl (8.6-10.4)
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
[2016-12-19] MEDS ORDERED: ceFAZolin IV 1 gm in Dextrose 50 ML IVPB ONE (08:37)
--- NOTE | 2016-12-19 09:11 | CP.PCM.PN ---
Subjective - Date & Time of Evaluation Date of Evaluation: 12/19/16 Time of Evaluation: 10:00 - Subjective Subjective: Patient is seen and examined in room. Patient reports feeling very dizzy during his test that morning. He also reports difficulty walking with physical therapy. Physical therapy staff noted difficult walking and balance issues as well. Objective - Vital Signs/Intake and Output Vital Signs (last 24 hours): Temp Pulse Resp BP Pulse Ox 98.3 F 75 20 119/72 100 12/18/16 23:15 12/18/16 23:30 12/18/16 23:15 12/18/16 23:15 12/18/16 23:15 - Medications Medications: Current Medications Chlordiazepoxide (Librium) 25 mg PO DAILY [facility] PRN Reason: Taper Stop: 12/20/16 05:59 Last Admin: 12/18/16 17:36 Dose: 25 mg Docusate Sodium (Colace) 100 mg PO BID [facility] Last Admin: 12/18/16 17:36 Dose: 100 mg Ergocalciferol (Drisdol 50,000 Intl Units Cap) 1 cap PO Q7D [facility] Last Admin: 12/17/16 09:18 Dose: 1 cap Fludrocortisone Acetate (Florinef) 0.1 mg PO DAILY [facility] Folic Acid (Folic Acid) 1 mg PO DAILY [facility] Last Admin: 12/18/16 09:25 Dose: 1 mg Sodium Chloride (Sodium Chloride 0.9%) 1,000 mls @ 150 mls/hr IV .Q6H40M [facility] Last Admin: 12/18/16 07:30 Dose: 150 mls/hr Lorazepam (Ativan) 1 mg IVP Q4H PRN PRN Reason: Seizure activity Last Admin: 12/16/16 10:37 Dose: 1 mg Morphine Sulfate (Morphine) 2 mg IVP Q4 PRN PRN Reason: Pain, severe (8-10) Last Admin: 12/19/16 00:24 Dose: 2 mg Ondansetron HCl (Zofran Inj) 4 mg IVP Q6H PRN PRN Reason: Nausea/Vomiting Last Admin: 12/16/16 14:54 Dose: 4 mg Pantoprazole Sodium (Protonix Ec Tab) 40 mg PO DAILY [facility] Last Admin: 12/18/16 09:25 Dose: 40 mg Thiamine HCl (Vitamin B1 Tab) 100 mg PO DAILY [facility] Last Admin: 12/18/16 09:25 Dose: 100 mg - Labs Labs: 12/19/16 05:45 12/19/16 05:45 PT 11.4 SECONDS (9.7-12.2) 12/16/16 02:09 INR 1.0 12/16/16 02:09 APTT 29 SECONDS (21-34) 12/16/16 02:09 - Constitutional Appears: Non-toxic, No Acute Distress - Head Exam Head Exam: NORMAL INSPECTION - Eye Exam Eye Exam: Normal appearance, Nystagmus, PERRL. absent: Scleral icterus Pupil Exam: NORMAL ACCOMODATION - Respiratory Exam Respiratory Exam: Clear to Ausculation Bilateral. absent: Rhonchi, Wheezes - Cardiovascular Exam Cardiovascular Exam: REGULAR RHYTHM, RRR, +S1, +S2. absent: Gallop, Rubs - GI/Abdominal Exam GI & Abdominal Exam: Soft, Normal Bowel Sounds. absent: Tenderness - Extremities Exam Extremities Exam: Normal Inspection. absent: Pedal Edema - Skin Skin Exam: Normal Color Assessment and Plan - Assessment and Plan (Free Text) Assessment: Syncope 12/19: Patient went for table tilt test that showed significat for orthostatic hypotension. Patient was started on Floricet 0.1mg daily. He will need JOSE, which is still pending. 12/18: Echo shows normal EF, brain MRI is unremarkable and the EEG was read by the Neurologist as was read by Dr. Koch as abnormal but most likely due to sedation. orthostatic BP was signficant, Dr. Dillard consulted, follow up with him. Head CT negative for acute intracranial abnormality - EKG: sinus rhtythm with first degree AV block at 65bpm, prolonged QT - Follow up: ECHO EEG Brain MRI - Carotid US - negative - B12 640, TSH 1.55, RPR negative, HIV negative, prolactin 13 - possibly secondary to orthostatic hypotension: Lyin/84, sitting 142/97, standing 124/92 - Neurology consult - Dr. Koch - help appreciated, f/u recommendations Vitamin D deficiency - Vitamin D 13.6 - Ergocalciferol [id number] Q7D Pancytopenia - WBC 3, Hgb 9.5, platelets 126, neutrophils 1.2 - F/U MEGHA - HIV negative Chronic pancreatitis 12/18: Patient now on regular diet Lipase 442 - Clear liquid diet - NS @150cc/hr - encourage fluid intake Constipation - Colace 100mg PO BID Alcohol Abuse - Aspiration and seizure precautions - Librium taper - Ativan IVP PRN seizure - Alcohol withdrawal assessment Q1 - Thiamine and Folic Acid Transaminitis Likely secondary to alcohol abuse and hepatitis C As per chart, pt had positive hep C and was made aware of this in past. Patient admitted that he is currently not taking his Hep C medication. He understands that he can be treated. Discussed importance of treatment for hep C in length. He was urged to follow up with either ID or GI after discharge for treatment. Prophylaxis SCD Protonix 40mg PO daily
[2016-12-19] MEDS: Pantoprazole 40 mg EC Tab PO SCH (10:21)
--- NOTE | 2016-12-19 10:25 | PCM.PROC ---
Procedure: Blank - Time Time Performed: 08:35 - Time Out Time Out: Side verified, Site verified, Patient ID confirmed, Sterile procedures obs. - Procedure Procedure:: Implantable loop recorder - Consent obtained: Consent obtained: Written - Performed by: Performed by:: Attending physician - Indications Indications(s):: and 2 residents - Sherry Marte, and Natalia Fisher - Contraindications: Contraindications:: None - Anesthetic Technique Anesthetic Technique: Local - Topical: Local/Regional Anesthetic:: Lidocaine 1% - Regional Nerve Block Regional Nerve Block:: Other (local, subcutaneous.) - Location Location: Chest (around the 4th intercostal space, around the mid clavicular region. ) - Description Discription of Procedure: 12/19/16 (The left parasternal region was identified, exposed and steriled using chlorohexedine. The surrounding area was drapped. Prophylacitic antibiotics ( cephazolin) was administered. Using sterile technique, a small subcutanenous pocket was created using 0.1 lidocaine for local anesthesia. About 1 cm incision was created, the inplantable loop was inserted into the sc pocket. ) - Result Result: Successful - Post-Procedure Post-procedure:: Hemostasis achieved, Dressing applied, Vital signs stable - Post-Procedural O2 Sat Post-procedural O2 sat %:: 98% - Specimens/Tests Ordered Specimens/Tests Ordered: none - Complications Complications:: Other (none ) - Patient Tolerated Procedure Patient Tolerated Procedure:: Well
--- NOTE | 2016-12-19 12:00 | OP ---
PROCEDURE DATE: 12/19/2016 INDICATIONS: Syncope. The patient was brought to the laborer sawmill, was prepped and draped in a sterile fashion. IV Ancef 1 gra m was administered. The patient had an incision with the ILR implantable loop scalpel used from the kit. An incision was made successfully after local anesthesia with lidocaine was administered. The tool to implant the loop recorder was used to inject an implantable loop recorder subcutaneously succ essfully. The incision was closed with a Steri-Strip and the patient tolerated the procedure well. The device was programmed and functioning appropriately. Successful implantation of an implantable l oop recorder, [employer]. Noel Zimmerman MD cc: [id number] TT: 12/19/2016 11:59:49 jn
[2016-12-19] MEDS ORDERED: Potassium Chloride 20 mEq ER Tab PO ONE (16:45)
--- NOTE | 2016-12-19 22:37 | CP.PCM.PN ---
Subjective - Date & Time of Evaluation Date of Evaluation: 12/19/16 Time of Evaluation: 11:05 - Subjective Subjective: Patient seen and evaluated EP consult appreciated POTS and Orthostatic hypotension Florief, Fuids and Compression stockings Daily walking and exercises should help Objective - Vital Signs/Intake and Output Vital Signs (last 24 hours): Temp Pulse Resp BP Pulse Ox 97.8 F 82 20 113/82 95 12/19/16 15:00 12/19/16 16:23 12/19/16 15:00 12/19/16 15:00 12/19/16 15:00 Intake and Output: 12/19/16 12/20/16 18:59 06:59 Intake Total 420 Balance 420 - Medications Medications: Current Medications Chlordiazepoxide (Librium) 25 mg PO DAILY [facility] PRN Reason: Taper Stop: 12/20/16 05:59 Last Admin: 12/19/16 10:21 Dose: 25 mg Docusate Sodium (Colace) 100 mg PO BID [facility] Last Admin: 12/19/16 17:18 Dose: 100 mg Ergocalciferol (Drisdol 50,000 Intl Units Cap) 1 cap PO Q7D [facility] Last Admin: 12/17/16 09:18 Dose: 1 cap Fludrocortisone Acetate (Florinef) 0.1 mg PO DAILY [facility] Last Admin: 12/19/16 10:21 Dose: 0.1 mg Folic Acid (Folic Acid) 1 mg PO DAILY [facility] Last Admin: 12/19/16 10:21 Dose: 1 mg Sodium Chloride (Sodium Chloride 0.9%) 1,000 mls @ 150 mls/hr IV .Q6H40M [facility] Last Admin: 12/18/16 07:30 Dose: 150 mls/hr Lorazepam (Ativan) 1 mg IVP Q4H PRN PRN Reason: Seizure activity Last Admin: 12/16/16 10:37 Dose: 1 mg Morphine Sulfate (Morphine) 2 mg IVP Q4 PRN PRN Reason: Pain, severe (8-10) Last Admin: 12/19/16 20:51 Dose: 2 mg Ondansetron HCl (Zofran Inj) 4 mg IVP Q6H PRN PRN Reason: Nausea/Vomiting Last Admin: 12/16/16 14:54 Dose: 4 mg Pantoprazole Sodium (Protonix Ec Tab) 40 mg PO DAILY [facility] Last Admin: 12/19/16 10:21 Dose: 40 mg Thiamine HCl (Vitamin B1 Tab) 100 mg PO DAILY [facility] Last Admin: 12/19/16 10:21 Dose: 100 mg - Labs Labs: 12/19/16 05:45 12/19/16 05:45 PT 11.4 SECONDS (9.7-12.2) 12/16/16 02:09 INR 1.0 12/16/16 02:09 APTT 29 SECONDS (21-34) 12/16/16 02:09
[2016-12-20 06:25] LABS: BASO % 0.4 % (0.0-2.0); EOS # 0.1 K/uL (0.0-0.7); EOS % 3.6 % (0.0-4.0); LYMPH # 0.9 K/uL (1.0-4.3); LYMPH % 35.7 % (20.0-40.0); MEAN CORPUSCULAR HEMOGLOBIN 30.1 pg (27.0-31.0); MEAN CORPUSCULAR HGB CONC 32.1 g/dL (33.0-37.0); MEAN PLATELET VOLUME 10.6 fL (7.2-11.7); MONO # 0.3 K/uL (0.0-0.8); MONO % 12.4 % (0.0-10.0); RED CELL DISTRIBUTION WIDTH 14.9 % (11.5-14.5); WHITE BLOOD COUNT 2.5 K/uL (4.8-10.8)
[2016-12-20 06:29] LABS: CHLORIDE 98 mmol/L (98-107); SODIUM 137 mmol/L (132-148)
[2016-12-20 06:30] LABS: POTASSIUM 3.7 mmol/L (3.6-5.2)
[2016-12-20 06:32] LABS: ALB/GLOB RATIO 1.2 (1.0-2.1); ALKALINE PHOSPHATASE 41 U/L (38-126); ALT/SGPT 31 U/L (21-72); AST/SGOT 72 U/L (17-59); BILIRUBIN,TOTAL 0.7 mg/dL (0.2-1.3); BLOOD UREA NITROGEN 11 mg/dL (9-20); CARBON DIOXIDE 27 mmol/L (22-30); GFR AFRICAN-AMERICAN > 60; GLUCOSE,RANDOM 95 mg/dL (75-110); TOTAL PROTEIN 6.2 g/dL (6.3-8.3)
[2016-12-20 06:33] LABS: CALCIUM 7.4 mg/dl (8.6-10.4)
[2016-12-20] MEDS: Pantoprazole 40 mg EC Tab PO SCH (09:43)
--- NOTE | 2016-12-20 10:54 | CP.PCM.PN ---
Subjective - Date & Time of Evaluation Date of Evaluation: 12/20/16 Time of Evaluation: 10:53 - Subjective Subjective: Pt Hgb 7.7 today, Pt seen by Dr. Rosen today, type/cross and 2 units blood ordered as per Dr. Rosen. Pt explained risk and benefits of blood transfusion, answer all questions, Pt agreed for 2 units PRBC transfusion, consent recieved, witnessed by BRIAN Macias, pt reports he has hx anemia, had blood transfusion last year without any reaction, tolerated well. repeat lab in am. Objective - Vital Signs/Intake and Output Vital Signs (last 24 hours): Temp Pulse Resp BP Pulse Ox 97.9 F 68 18 126/85 99 12/20/16 07:10 12/20/16 07:10 12/20/16 07:10 12/20/16 07:10 12/20/16 07:10 Intake and Output: 12/20/16 12/20/16 06:59 18:59 Intake Total 100 Balance 100 - Medications Medications: Current Medications Docusate Sodium (Colace) 100 mg PO BID [facility] Last Admin: 12/20/16 09:44 Dose: 100 mg Ergocalciferol (Drisdol 50,000 Intl Units Cap) 1 cap PO Q7D [facility] Last Admin: 12/17/16 09:18 Dose: 1 cap Fludrocortisone Acetate (Florinef) 0.1 mg PO DAILY [facility] Last Admin: 12/20/16 09:44 Dose: 0.1 mg Folic Acid (Folic Acid) 1 mg PO DAILY [facility] Last Admin: 12/20/16 09:44 Dose: 1 mg Sodium Chloride (Sodium Chloride 0.9%) 1,000 mls @ 150 mls/hr IV .Q6H40M [facility] Last Admin: 12/18/16 07:30 Dose: 150 mls/hr Lorazepam (Ativan) 1 mg IVP Q4H PRN PRN Reason: Seizure activity Last Admin: 12/16/16 10:37 Dose: 1 mg Morphine Sulfate (Morphine) 2 mg IVP Q4 PRN PRN Reason: Pain, severe (8-10) Last Admin: 12/20/16 10:16 Dose: 2 mg Ondansetron HCl (Zofran Inj) 4 mg IVP Q6H PRN PRN Reason: Nausea/Vomiting Last Admin: 12/16/16 14:54 Dose: 4 mg Pantoprazole Sodium (Protonix Ec Tab) 40 mg PO DAILY [facility] Last Admin: 12/20/16 09:43 Dose: 40 mg Thiamine HCl (Vitamin B1 Tab) 100 mg PO DAILY [facility] Last Admin: 12/20/16 09:44 Dose: 100 mg - Labs Labs: 12/20/16 05:58 12/20/16 05:58 PT 11.4 SECONDS (9.7-12.2) 12/16/16 02:09 INR 1.0 12/16/16 02:09 APTT 29 SECONDS (21-34) 12/16/16 02:09
--- NOTE | 2016-12-20 20:31 | CP.PCM.PN ---
Subjective - Date & Time of Evaluation Date of Evaluation: 12/20/16 Time of Evaluation: 15:00 - Subjective Subjective: Patient seen and evaluated Denies chest pain, dyspnea and dizziness On Florinef. Had LINQ monitor inserted for syncope Objective - Vital Signs/Intake and Output Vital Signs (last 24 hours): Temp Pulse Resp BP Pulse Ox 98.1 F 67 18 133/87 98 12/20/16 16:10 12/20/16 16:10 12/20/16 16:10 12/20/16 16:10 12/20/16 16:09 Intake and Output: 12/20/16 12/21/16 18:59 06:59 Intake Total 340 Output Total 600 Balance -260 - Medications Medications: Current Medications Docusate Sodium (Colace) 100 mg PO BID [facility] Last Admin: 12/20/16 18:00 Dose: 100 mg Ergocalciferol (Drisdol 50,000 Intl Units Cap) 1 cap PO Q7D [facility] Last Admin: 12/17/16 09:18 Dose: 1 cap Fludrocortisone Acetate (Florinef) 0.1 mg PO DAILY [facility] Last Admin: 12/20/16 09:44 Dose: 0.1 mg Folic Acid (Folic Acid) 1 mg PO DAILY [facility] Last Admin: 12/20/16 09:44 Dose: 1 mg Sodium Chloride (Sodium Chloride 0.9%) 1,000 mls @ 150 mls/hr IV .Q6H40M [facility] Last Admin: 12/18/16 07:30 Dose: 150 mls/hr Lorazepam (Ativan) 1 mg IVP Q4H PRN PRN Reason: Seizure activity Last Admin: 12/16/16 10:37 Dose: 1 mg Morphine Sulfate (Morphine) 2 mg IVP Q4 PRN PRN Reason: Pain, severe (8-10) Last Admin: 12/20/16 15:48 Dose: 2 mg Ondansetron HCl (Zofran Inj) 4 mg IVP Q6H PRN PRN Reason: Nausea/Vomiting Last Admin: 12/16/16 14:54 Dose: 4 mg Pantoprazole Sodium (Protonix Ec Tab) 40 mg PO DAILY [facility] Last Admin: 12/20/16 09:43 Dose: 40 mg Thiamine HCl (Vitamin B1 Tab) 100 mg PO DAILY [facility] Last Admin: 03/25/17 09:44 Dose: 100 mg - Labs Labs: 12/20/16 05:58 12/20/16 05:58 PT 11.4 SECONDS (9.7-12.2) 12/16/16 02:09 INR 1.0 12/16/16 02:09 APTT 29 SECONDS (21-34) 12/16/16 02:09
[2016-12-21 07:32] LABS: BASO % 0.4 % (0.0-2.0); EOS # 0.1 K/uL (0.0-0.7); EOS % 2.9 % (0.0-4.0); HEMATOCRIT 28.8 % (35.0-51.0); LYMPH # 0.9 K/uL (1.0-4.3); LYMPH % 24.9 % (20.0-40.0); MEAN CORPUSCULAR HEMOGLOBIN 30.4 pg (27.0-31.0); MEAN CORPUSCULAR HGB CONC 33.3 g/dL (33.0-37.0); MEAN PLATELET VOLUME 10.1 fL (7.2-11.7); MONO # 0.5 K/uL (0.0-0.8); MONO % 13.2 % (0.0-10.0); NRBC % 0.1 % (0.0-2.0); RED CELL DISTRIBUTION WIDTH 16.3 % (11.5-14.5)
[2016-12-21 07:49] LABS: MEAN CELL VOLUME 91.3 fL (80.0-94.0); WHITE BLOOD COUNT 3.8 K/uL (4.8-10.8)
[2016-12-21 08:28] LABS: CHLORIDE 97 mmol/L (98-107)
[2016-12-21 08:29] LABS: POTASSIUM 3.6 mmol/L (3.6-5.2); SODIUM 135 mmol/L (132-148)
[2016-12-21 08:31] LABS: ALB/GLOB RATIO 1.3 (1.0-2.1); ALKALINE PHOSPHATASE 45 U/L (38-126); AST/SGOT 82 U/L (17-59); BILIRUBIN,TOTAL 0.8 mg/dL (0.2-1.3); BLOOD UREA NITROGEN 13 mg/dL (9-20); CARBON DIOXIDE 25 mmol/L (22-30); GFR AFRICAN-AMERICAN > 60; GLUCOSE,RANDOM 99 mg/dL (75-110); TOTAL PROTEIN 6.3 g/dL (6.3-8.3)
[2016-12-21 08:32] LABS: ALT/SGPT 33 U/L (21-72); CALCIUM 7.9 mg/dl (8.6-10.4)
[2016-12-21] MEDS: Pantoprazole 40 mg EC Tab PO SCH (09:44)
[2016-12-21 15:21] LABS: URINE BILIRUBIN NEGATIVE (NEGATIVE); URINE BLOOD NEGATIVE (NEGATIVE); URINE COLOR Yellow (YELLOW); URINE GLUCOSE (UA) NORMAL (Normal); URINE KETONE NEGATIVE (NEGATIVE); URINE LEUKOCYTE ESTERASE 1+ Leu/uL (Negative); URINE PROTEIN NEGATIVE (NEGATIVE); URINE UROBILINOGEN NORMAL mg/dL (0.2-1.0); WBC URINE 1 /hpf (0-5)
--- NOTE | 2016-12-21 17:26 | CP.PCM.PN ---
Subjective - Date & Time of Evaluation Date of Evaluation: 12/21/16 Objective - Vital Signs/Intake and Output Vital Signs (last 24 hours): Temp Pulse Resp BP Pulse Ox 98.3 F 67 20 143/81 99 12/21/16 15:29 12/21/16 15:29 12/21/16 15:29 12/21/16 15:29 12/21/16 15:29 Intake and Output: 12/21/16 12/21/16 06:59 18:59 Intake Total 325 720 Output Total 100 400 Balance 225 320 - Medications Medications: Current Medications Docusate Sodium (Colace) 100 mg PO BID [facility] Last Admin: 12/21/16 09:44 Dose: 100 mg Ergocalciferol (Drisdol 50,000 Intl Units Cap) 1 cap PO Q7D [facility] Last Admin: 12/17/16 09:18 Dose: 1 cap Fludrocortisone Acetate (Florinef) 0.1 mg PO DAILY [facility] Last Admin: 12/21/16 09:45 Dose: 0.1 mg Folic Acid (Folic Acid) 1 mg PO DAILY [facility] Last Admin: 12/21/16 09:45 Dose: 1 mg Sodium Chloride (Sodium Chloride 0.9%) 1,000 mls @ 150 mls/hr IV .Q6H40M [facility] Last Admin: 12/18/16 07:30 Dose: 150 mls/hr Lorazepam (Ativan) 1 mg IVP Q4H PRN PRN Reason: Seizure activity Last Admin: 12/16/16 10:37 Dose: 1 mg Morphine Sulfate (Morphine) 2 mg IVP Q4 PRN PRN Reason: Pain, severe (8-10) Last Admin: 12/21/16 13:45 Dose: 2 mg Ondansetron HCl (Zofran Inj) 4 mg IVP Q6H PRN PRN Reason: Nausea/Vomiting Last Admin: 12/16/16 14:54 Dose: 4 mg Pantoprazole Sodium (Protonix Ec Tab) 40 mg PO DAILY [facility] Last Admin: 12/21/16 09:44 Dose: 40 mg Thiamine HCl (Vitamin B1 Tab) 100 mg PO DAILY [facility] Last Admin: 12/21/16 09:44 Dose: 100 mg - Labs Labs: 12/21/16 07:09 12/21/16 07:09 PT 11.4 SECONDS (9.7-12.2) 12/16/16 02:09 INR 1.0 12/16/16 02:09 APTT 29 SECONDS (21-34) 12/16/16 02:09
--- NOTE | 2016-12-21 18:16 | CP.PCM.PN ---
Subjective - Date & Time of Evaluation Date of Evaluation: 12/21/16 Time of Evaluation: 16:10 - Subjective Subjective: Patient seen and evaluated Denies chest pain and dyspnea No more syncopial episodes after coming to hospital LINQ monitor placed On Florinef for orthostasis Objective - Vital Signs/Intake and Output Vital Signs (last 24 hours): Temp Pulse Resp BP Pulse Ox 98.3 F 75 20 143/81 99 12/21/16 15:29 12/21/16 16:00 12/21/16 15:29 12/21/16 15:29 12/21/16 15:29 Intake and Output: 12/21/16 12/21/16 06:59 18:59 Intake Total 325 720 Output Total 100 400 Balance 225 320 - Medications Medications: Current Medications Docusate Sodium (Colace) 100 mg PO BID [facility] Last Admin: 12/21/16 17:59 Dose: 100 mg Ergocalciferol (Drisdol 50,000 Intl Units Cap) 1 cap PO Q7D [facility] Last Admin: 12/17/16 09:18 Dose: 1 cap Fludrocortisone Acetate (Florinef) 0.1 mg PO DAILY [facility] Last Admin: 12/21/16 09:45 Dose: 0.1 mg Folic Acid (Folic Acid) 1 mg PO DAILY [facility] Last Admin: 12/21/16 09:45 Dose: 1 mg Sodium Chloride (Sodium Chloride 0.9%) 1,000 mls @ 150 mls/hr IV .Q6H40M [facility] Last Admin: 12/18/16 07:30 Dose: 150 mls/hr Lorazepam (Ativan) 1 mg IVP Q4H PRN PRN Reason: Seizure activity Last Admin: 12/16/16 10:37 Dose: 1 mg Morphine Sulfate (Morphine) 2 mg IVP Q4 PRN PRN Reason: Pain, severe (8-10) Last Admin: 12/21/16 17:59 Dose: 2 mg Ondansetron HCl (Zofran Inj) 4 mg IVP Q6H PRN PRN Reason: Nausea/Vomiting Last Admin: 12/16/16 14:54 Dose: 4 mg Pantoprazole Sodium (Protonix Ec Tab) 40 mg PO DAILY [facility] Last Admin: 12/21/16 09:44 Dose: 40 mg Thiamine HCl (Vitamin B1 Tab) 100 mg PO DAILY [facility] Last Admin: 12/21/16 09:44 Dose: 100 mg - Labs Labs: 12/21/16 07:09 12/21/16 07:09 PT 11.4 SECONDS (9.7-12.2) 12/16/16 02:09 INR 1.0 12/16/16 02:09 APTT 29 SECONDS (21-34) 12/16/16 02:09
[2016-12-22 07:13] LABS: CHLORIDE 99 mmol/L (98-107); POTASSIUM 3.7 mmol/L (3.6-5.2); SODIUM 136 mmol/L (132-148)
[2016-12-22 07:15] LABS: GFR AFRICAN-AMERICAN > 60
[2016-12-22 07:16] LABS: ALKALINE PHOSPHATASE 38 U/L (38-126); ALT/SGPT 38 U/L (21-72); AST/SGOT 70 U/L (17-59); BILIRUBIN,TOTAL 0.9 mg/dL (0.2-1.3); BLOOD UREA NITROGEN 18 mg/dL (9-20); CALCIUM 8.1 mg/dl (8.6-10.4); CARBON DIOXIDE 27 mmol/L (22-30); GLUCOSE,RANDOM 96 mg/dL (75-110); TOTAL PROTEIN 6.4 g/dL (6.3-8.3)
[2016-12-22 07:19] LABS: BASO % 0.8 % (0.0-2.0); EOS # 0.1 K/uL (0.0-0.7); EOS % 3.5 % (0.0-4.0); LYMPH % 31.6 % (20.0-40.0); MEAN CELL VOLUME 91.3 fL (80.0-94.0); MEAN CORPUSCULAR HEMOGLOBIN 30.5 pg (27.0-31.0); MEAN CORPUSCULAR HGB CONC 33.4 g/dL (33.0-37.0); MONO # 0.5 K/uL (0.0-0.8); MONO % 15.5 % (0.0-10.0); NRBC % 0.2 % (0.0-2.0); RED CELL DISTRIBUTION WIDTH 16.6 % (11.5-14.5); WHITE BLOOD COUNT 3.3 K/uL (4.8-10.8)
--- NOTE | 2016-12-22 08:11 | CP.PCM.PN ---
Subjective - Date & Time of Evaluation Date of Evaluation: 12/22/16 Time of Evaluation: 07:40 - Subjective Subjective: Cardiology progress note for Dr Gallagher. Patient in no acute distress. Paroxysmal afib on tele monitor. Patient denies cp , sob, dizziness, or headache. Patient denies n/v/d. Objective - Vital Signs/Intake and Output Vital Signs (last 24 hours): Temp Pulse Resp BP Pulse Ox 98.5 F 68 20 136/83 97 12/22/16 00:27 12/22/16 00:27 12/22/16 00:27 12/22/16 00:27 12/22/16 00:27 Intake and Output: 12/22/16 12/22/16 06:59 18:59 Intake Total 100 Balance 100 - Medications Medications: Current Medications Docusate Sodium (Colace) 100 mg PO BID [facility] Last Admin: 12/21/16 17:59 Dose: 100 mg Ergocalciferol (Drisdol 50,000 Intl Units Cap) 1 cap PO Q7D [facility] Last Admin: 12/17/16 09:18 Dose: 1 cap Fludrocortisone Acetate (Florinef) 0.1 mg PO DAILY [facility] Last Admin: 12/21/16 09:45 Dose: 0.1 mg Folic Acid (Folic Acid) 1 mg PO DAILY [facility] Last Admin: 12/21/16 09:45 Dose: 1 mg Sodium Chloride (Sodium Chloride 0.9%) 1,000 mls @ 150 mls/hr IV .Q6H40M [facility] Last Admin: 12/18/16 07:30 Dose: 150 mls/hr Lorazepam (Ativan) 1 mg IVP Q4H PRN PRN Reason: Seizure activity Last Admin: 12/16/16 10:37 Dose: 1 mg Morphine Sulfate (Morphine) 2 mg IVP Q4 PRN PRN Reason: Pain, severe (8-10) Last Admin: 12/22/16 06:18 Dose: 2 mg Ondansetron HCl (Zofran Inj) 4 mg IVP Q6H PRN PRN Reason: Nausea/Vomiting Last Admin: 12/16/16 14:54 Dose: 4 mg Pantoprazole Sodium (Protonix Ec Tab) 40 mg PO DAILY [facility] Last Admin: 12/21/16 09:44 Dose: 40 mg Polyethylene Glycol (Miralax) 17 gm PO DAILY [facility] Thiamine HCl (Vitamin B1 Tab) 100 mg PO DAILY [facility] Last Admin: 12/21/16 09:44 Dose: 100 mg - Labs Labs: 12/22/16 06:00 12/22/16 06:00 PT 11.4 SECONDS (9.7-12.2) 12/16/16 02:09 INR 1.0 12/16/16 02:09 APTT 29 SECONDS (21-34) 12/16/16 02:09 - Constitutional Appears: No Acute Distress - Head Exam Head Exam: ATRAUMATIC, NORMAL INSPECTION, NORMOCEPHALIC - Eye Exam Eye Exam: EOMI, Normal appearance, PERRL - ENT Exam ENT Exam: Mucous Membranes Moist - Neck Exam Neck Exam: Normal Inspection - Respiratory Exam Respiratory Exam: Clear to Ausculation Bilateral, NORMAL BREATHING PATTERN. absent: Rhonchi, Wheezes, Respiratory Distress, Stridor - Cardiovascular Exam Cardiovascular Exam: REGULAR RHYTHM, RRR, +S1, +S2. absent: Murmur - GI/Abdominal Exam GI & Abdominal Exam: Soft, Tenderness (ruq. ), Normal Bowel Sounds. absent: Guarding - Extremities Exam Extremities Exam: absent: Pedal Edema - Back Exam Back Exam: NORMAL INSPECTION - Neurological Exam Neurological Exam: Alert, Awake, Oriented x3 - Psychiatric Exam Psychiatric exam: Normal Affect, Normal Mood - Skin Skin Exam: Dry, Warm Additional comments: The loop recoder site, clean, with dry dressing. No signs of erythema or edema. Assessment and Plan - Assessment and Plan (Free Text) Assessment: 1) Syncope and fall 2) Orthostatic hypotension 3) POTS ( postural orthostatic tachycardia syndrome) 4) Anemia 5) Alcohol abuse 6) h/o hypertension Plan: Patient is s/p tilt table test and insertion of the loop recorder day#3. Patient currently inhouse for the management of the anemia, s/p 2 units of prbc transfused. Patient to follow up with Dr Zimemrman as outpatient after discharge. Continue florinef 0.1 mg daily. Patient seen, examined, case discussed with Dr Zimmerman.
--- NOTE | 2016-12-22 08:13 | CP.PCM.PN ---
Subjective - Date & Time of Evaluation Date of Evaluation: 12/22/16 Time of Evaluation: 07:10 - Subjective Subjective: PGY2 Medicine Note - Dr. Rosen's service: Patient seen and examined at bedside this AM POD #1 s/p pacemaker placement by Dr. Zimmerman. Patient reports mild pain where pacemaker was inserted. Patient says he has not tried to get out of bed on his own yet since the surgery. Patient reports no bowel movement x 3 days. Patient denies fever, chills, SOB, nausea, vomiting, diarrhea. Objective - Vital Signs/Intake and Output Vital Signs (last 24 hours): Temp Pulse Resp BP Pulse Ox 98.5 F 68 20 136/83 97 12/22/16 00:27 12/22/16 00:27 12/22/16 00:27 12/22/16 00:27 12/22/16 00:27 Intake and Output: 12/22/16 12/22/16 06:59 18:59 Intake Total 100 Balance 100 - Medications Medications: Current Medications Docusate Sodium (Colace) 100 mg PO BID [facility] Last Admin: 12/21/16 17:59 Dose: 100 mg Ergocalciferol (Drisdol 50,000 Intl Units Cap) 1 cap PO Q7D [facility] Last Admin: 12/17/16 09:18 Dose: 1 cap Fludrocortisone Acetate (Florinef) 0.1 mg PO DAILY [facility] Last Admin: 12/21/16 09:45 Dose: 0.1 mg Folic Acid (Folic Acid) 1 mg PO DAILY [facility] Last Admin: 12/21/16 09:45 Dose: 1 mg Sodium Chloride (Sodium Chloride 0.9%) 1,000 mls @ 150 mls/hr IV .Q6H40M [facility] Last Admin: 12/18/16 07:30 Dose: 150 mls/hr Lorazepam (Ativan) 1 mg IVP Q4H PRN PRN Reason: Seizure activity Last Admin: 12/16/16 10:37 Dose: 1 mg Morphine Sulfate (Morphine) 2 mg IVP Q4 PRN PRN Reason: Pain, severe (8-10) Last Admin: 12/22/16 06:18 Dose: 2 mg Ondansetron HCl (Zofran Inj) 4 mg IVP Q6H PRN PRN Reason: Nausea/Vomiting Last Admin: 12/16/16 14:54 Dose: 4 mg Pantoprazole Sodium (Protonix Ec Tab) 40 mg PO DAILY [facility] Last Admin: 12/21/16 09:44 Dose: 40 mg Polyethylene Glycol (Miralax) 17 gm PO DAILY [facility] Thiamine HCl (Vitamin B1 Tab) 100 mg PO DAILY [facility] Last Admin: 12/21/16 09:44 Dose: 100 mg - Labs Labs: 12/22/16 06:00 12/22/16 06:00 PT 11.4 SECONDS (9.7-12.2) 12/16/16 02:09 INR 1.0 12/16/16 02:09 APTT 29 SECONDS (21-34) 12/16/16 02:09 - Constitutional Appears: Non-toxic, No Acute Distress - Head Exam Head Exam: NORMAL INSPECTION - Eye Exam Eye Exam: EOMI - ENT Exam ENT Exam: Mucous Membranes Moist - Respiratory Exam Respiratory Exam: Chest Wall Tenderness (at site of pacemaker insertion), Clear to Ausculation Bilateral, NORMAL BREATHING PATTERN. absent: Rales, Rhonchi, Wheezes - Cardiovascular Exam Cardiovascular Exam: REGULAR RHYTHM, +S1, +S2. absent: Gallop, Rubs, Murmur Additional comments: pacemaker inserted into left chest; dressing has small amount of dried blood on it, no drainage of pus or fresh blood - GI/Abdominal Exam GI & Abdominal Exam: Guarding, Soft, Tenderness (diffusely), Normal Bowel Sounds. absent: Distended - Extremities Exam Extremities Exam: Normal Capillary Refill. absent: Pedal Edema - Neurological Exam Neurological Exam: Alert, Oriented x3 - Psychiatric Exam Psychiatric exam: Normal Affect, Normal Mood - Skin Skin Exam: Normal Color, Warm Assessment and Plan - Assessment and Plan (Free Text) Assessment: Syncope 12/22: Secondary to orthostatic hypotension POD#1 s/p pacemaker placement by Dr. Zimmerman Pending JOSE placement PT recommends JOSE for discharge 12/19: Patient went for table tilt test that showed significat for orthostatic hypotension. Patient was started on Floricet 0.1mg daily. He will need JOSE, which is still pending. 12/18: Echo shows normal EF, brain MRI is unremarkable and the EEG was read by the Neurologist as was read by Dr. Koch as abnormal but most likely due to sedation. orthostatic BP was signficant, Dr. Dillard consulted, follow up with him. Head CT negative for acute intracranial abnormality - EKG: sinus rhtythm with first degree AV block at 65bpm, prolonged QT - Follow up: ECHO EEG Brain MRI - Carotid US - negative - B12 640, TSH 1.55, RPR negative, HIV negative, prolactin 13 - possibly secondary to orthostatic hypotension: Lyin/84, sitting 142/97, standing 124/92 - Neurology consult - Dr. Koch - help appreciated, f/u recommendations Vitamin D deficiency - Vitamin D 13.6 - Ergocalciferol 99686T Q7D Pancytopenia - WBC 3, Hgb 9.5, platelets 126, neutrophils 1.2 previously, f/u labs this AM - MEGHA negative - HIV negative Chronic pancreatitis 12/18: Patient now on regular diet Lipase 442 - Clear liquid diet - NS @150cc/hr - encourage fluid intake Constipation - Colace 100mg PO BID - Miralax 17gm PO daily Alcohol Abuse - Aspiration and seizure precautions - Librium taper - Ativan IVP PRN seizure - Alcohol withdrawal assessment Q1 - Thiamine and Folic Acid Transaminitis Likely secondary to alcohol abuse and hepatitis C As per chart, pt had positive hep C and was made aware of this in past. Patient admitted that he is currently not taking his Hep C medication. He understands that he can be treated. Discussed importance of treatment for hep C in length. He was urged to follow up with either ID or GI after discharge for treatment. Prophylaxis SCD Protonix 40mg PO daily
[2016-12-22] MEDS: Pantoprazole 40 mg EC Tab PO SCH (09:05)
--- NOTE | 2016-12-22 09:05 | OP ---
PROCEDURE DATE: 12/19/2016 INDICATION: Syncope. This is a 61-year-old male with frequent syncope at rest as well as on standing, multiple episodes wi thout warning, has a history of multiple allergies. Does take alcohol from time to time, but still s yncope without alcohol; was brought to the lab for a tilt table test. After consent and IV hydration , the patient was tilted and almost immediately from a heart rate of 83, his heart rate rushed to 12 3, but went from a blood pressure of about 130s to blood pressure about 100. So he had similar some fall in blood pressure. He was symptomatic and we turned him back to flat and his heart rate went ba ck down to 84. Blood pressure was up again, but in view of this mixed picture and stories of syncope when even sitting are very dramatic. He had a very dramatic change in heart rate consistent possibl y with Pot's syndrome, postural orthostatic tachycardia syndrome, but he also has as a young man has history of frequent syncope which is not really clear as to what was the precipitating event causing this syncope. I have decided to call this is a positive stress test, but also recommend an implantab le loop recorder to treat this very mixed picture of syncope where it does have a cardioinhibitory fa ctor, but also requires arrhythmia monitoring to rule out any type of arrhythmogenic issues that woul d cause this syncope and also the patient has positive history in the family of this and I will also see him in followup in the office, so positive stress test. Recommend Florinef 0.1 mg p.o. b.i.d. A lso, recommend an implantable loop recorder. Noel Zimmerman MD cc: [id number] TT: 12/19/2016 12:14:16 tn
--- NOTE | 2016-12-22 09:19 | PN ---
DATE: 12/20/2016 The patient is complaining of weakness and jitteriness. . The patient warranted blood transfusio n. Hemoglobin was 7.7 which contributed to his weakness. Familia Harris MD cc: [id number] TT: 12/21/2016 00:49:54 Confirmation # [id number] Dictation # [id number] 12/22/2016 08:18:04
[2016-12-22] MEDS: POLYETHYLENE GLYCOL 3350 17 GM/Dose PACKET PO SCH (10:39)
--- NOTE | 2016-12-22 22:59 | CP.PCM.PN ---
Subjective - Date & Time of Evaluation Date of Evaluation: 12/22/16 Time of Evaluation: 16:05 - Subjective Subjective: Patient seen and evaluated Denies chest pain and dyspnea Syncope mgt as per Dr. Zimmerman Positive Orthostatics, anemia Has LINQ placed. On Florinef Objective - Vital Signs/Intake and Output Vital Signs (last 24 hours): Temp Pulse Resp BP Pulse Ox 98 F 62 20 131/75 97 12/22/16 16:17 12/22/16 16:17 12/22/16 16:17 12/22/16 16:17 12/22/16 16:17 - Medications Medications: Current Medications Docusate Sodium (Colace) 100 mg PO BID [facility] Last Admin: 12/22/16 17:59 Dose: 100 mg Ergocalciferol (Drisdol 50,000 Intl Units Cap) 1 cap PO Q7D [facility] Last Admin: 12/17/16 09:18 Dose: 1 cap Fludrocortisone Acetate (Florinef) 0.1 mg PO DAILY [facility] Last Admin: 12/22/16 09:05 Dose: 0.1 mg Folic Acid (Folic Acid) 1 mg PO DAILY [facility] Last Admin: 12/22/16 09:05 Dose: 1 mg Sodium Chloride (Sodium Chloride 0.9%) 1,000 mls @ 150 mls/hr IV .Q6H40M [facility] Last Admin: 12/18/16 07:30 Dose: 150 mls/hr Lorazepam (Ativan) 1 mg IVP Q4H PRN PRN Reason: Seizure activity Last Admin: 12/16/16 10:37 Dose: 1 mg Morphine Sulfate (Morphine) 2 mg IVP Q4 PRN PRN Reason: Pain, severe (8-10) Last Admin: 12/22/16 21:59 Dose: 2 mg Ondansetron HCl (Zofran Inj) 4 mg IVP Q6H PRN PRN Reason: Nausea/Vomiting Last Admin: 12/16/16 14:54 Dose: 4 mg Pantoprazole Sodium (Protonix Ec Tab) 40 mg PO DAILY [facility] Last Admin: 12/22/16 09:05 Dose: 40 mg Polyethylene Glycol (Miralax) 17 gm PO DAILY [facility] Last Admin: 12/22/16 10:39 Dose: Not Given Thiamine HCl (Vitamin B1 Tab) 100 mg PO DAILY [facility] Last Admin: 12/22/16 09:04 Dose: 100 mg - Labs Labs: 12/22/16 06:00 12/22/16 06:00 PT 11.4 SECONDS (9.7-12.2) 12/16/16 02:09 INR 1.0 12/16/16 02:09 APTT 29 SECONDS (21-34) 12/16/16 02:09
[2016-12-23 06:16] LABS: BASO % 0.8 % (0.0-2.0); EOS # 0.1 K/uL (0.0-0.7); EOS % 4.1 % (0.0-4.0); HEMATOCRIT 27.8 % (35.0-51.0); LYMPH % 30.7 % (20.0-40.0); MEAN CELL VOLUME 91.7 fL (80.0-94.0); MEAN CORPUSCULAR HGB CONC 33.8 g/dL (33.0-37.0); MEAN PLATELET VOLUME 9.7 fL (7.2-11.7); MONO # 0.6 K/uL (0.0-0.8); MONO % 17.8 % (0.0-10.0); NRBC % 0.2 % (0.0-2.0); RED CELL DISTRIBUTION WIDTH 15.6 % (11.5-14.5); WHITE BLOOD COUNT 3.3 K/uL (4.8-10.8)
[2016-12-23 06:22] LABS: CHLORIDE 97 mmol/L (98-107)
[2016-12-23 06:23] LABS: SODIUM 138 mmol/L (132-148)
[2016-12-23 06:24] LABS: POTASSIUM 3.5 mmol/L (3.6-5.2)
[2016-12-23 06:26] LABS: ALB/GLOB RATIO 1.4 (1.0-2.1); ALKALINE PHOSPHATASE 47 U/L (38-126); AST/SGOT 60 U/L (17-59); BILIRUBIN,TOTAL 0.7 mg/dL (0.2-1.3); BLOOD UREA NITROGEN 18 mg/dL (9-20); CARBON DIOXIDE 27 mmol/L (22-30); GFR AFRICAN-AMERICAN > 60; TOTAL PROTEIN 6.3 g/dL (6.3-8.3)
[2016-12-23 06:27] LABS: ALT/SGPT 34 U/L (21-72); CALCIUM 7.6 mg/dl (8.6-10.4); GLUCOSE,RANDOM 100 mg/dL (75-110)
[2016-12-23 08:09] VITALS: BP 137/80; RESP 18; TEMP 98
[2016-12-23] MEDS ORDERED: Potassium Chloride 20 mEq ER Tab PO STA (08:56)
[2016-12-23] MEDS: Pantoprazole 40 mg EC Tab PO SCH (10:10)
[2016-12-23] MEDS: POLYETHYLENE GLYCOL 3350 17 GM/Dose PACKET PO SCH (10:12)
--- NOTE | 2016-12-23 10:33 | CP.PCM.PN ---
Subjective - Date & Time of Evaluation Date of Evaluation: 12/23/16 Time of Evaluation: 07:20 - Subjective Subjective: PGY2 Medicine Note - Dr. Rosen's service: Patient seen and examined at bedside this AM POD #2 s/p loop recorder placement by Dr. Zimmerman. Patient reports mild pain where it was inserted. Patient reports dizziness with walking. Patient had large bowel movement last night. Patient denies fever, chills, SOB, nausea, vomiting, diarrhea. Patient does not want to go to rehab center for PT. Patient says he will do Home PT and go to outpatient alcohol rehab Objective - Vital Signs/Intake and Output Vital Signs (last 24 hours): Temp Pulse Resp BP Pulse Ox 98 F 79 18 137/80 97 12/23/16 08:09 12/23/16 08:19 12/23/16 08:09 12/23/16 08:09 12/23/16 08:09 Intake and Output: 12/23/16 12/23/16 06:59 18:59 Intake Total 340 Output Total 600 Balance -260 - Medications Medications: Current Medications Docusate Sodium (Colace) 100 mg PO BID [facility] Last Admin: 12/23/16 10:10 Dose: 100 mg Ergocalciferol (Drisdol 50,000 Intl Units Cap) 1 cap PO Q7D [facility] Last Admin: 12/17/16 09:18 Dose: 1 cap Fludrocortisone Acetate (Florinef) 0.1 mg PO DAILY [facility] Last Admin: 12/23/16 10:11 Dose: 0.1 mg Folic Acid (Folic Acid) 1 mg PO DAILY [facility] Last Admin: 12/23/16 10:10 Dose: 1 mg Sodium Chloride (Sodium Chloride 0.9%) 1,000 mls @ 150 mls/hr IV .Q6H40M [facility] Last Admin: 12/18/16 07:30 Dose: 150 mls/hr Lorazepam (Ativan) 1 mg IVP Q4H PRN PRN Reason: Seizure activity Last Admin: 12/16/16 10:37 Dose: 1 mg Morphine Sulfate (Morphine) 2 mg IVP Q4 PRN PRN Reason: Pain, severe (8-10) Last Admin: 12/23/16 10:27 Dose: 2 mg Ondansetron HCl (Zofran Inj) 4 mg IVP Q6H PRN PRN Reason: Nausea/Vomiting Last Admin: 12/16/16 14:54 Dose: 4 mg Pantoprazole Sodium (Protonix Ec Tab) 40 mg PO DAILY [facility] Last Admin: 12/23/16 10:10 Dose: 40 mg Polyethylene Glycol (Miralax) 17 gm PO DAILY [facility] Last Admin: 12/23/16 10:12 Dose: 17 gm Thiamine HCl (Vitamin B1 Tab) 100 mg PO DAILY [facility] Last Admin: 12/23/16 10:10 Dose: 100 mg - Labs Labs: 12/23/16 06:02 12/23/16 06:02 PT 11.4 SECONDS (9.7-12.2) 12/16/16 02:09 INR 1.0 12/16/16 02:09 APTT 29 SECONDS (21-34) 12/16/16 02:09 - Constitutional Appears: Non-toxic, No Acute Distress - Head Exam Head Exam: NORMAL INSPECTION - Eye Exam Eye Exam: EOMI - ENT Exam ENT Exam: Mucous Membranes Moist - Respiratory Exam Respiratory Exam: Chest Wall Tenderness, Clear to Ausculation Bilateral, NORMAL BREATHING PATTERN. absent: Rales, Rhonchi, Wheezes - Cardiovascular Exam Cardiovascular Exam: REGULAR RHYTHM, +S1, +S2. absent: Gallop, Rubs, Murmur - GI/Abdominal Exam GI & Abdominal Exam: Soft, Normal Bowel Sounds. absent: Firm, Guarding, Tenderness - Extremities Exam Extremities Exam: Normal Capillary Refill. absent: Pedal Edema - Neurological Exam Neurological Exam: Alert, Oriented x3 - Psychiatric Exam Psychiatric exam: Normal Affect, Normal Mood - Skin Skin Exam: Normal Color, Warm Assessment and Plan - Assessment and Plan (Free Text) Assessment: Syncope 12/23:POD #2 s/p loop recorder placement by Dr. Zimmerman Patient does not want JOSE. Patient discharged with home PT and Florinef, MVI, thiamine, colace and tramadol for abdominal pain 12/22: Secondary to orthostatic hypotension POD#1 s/p Loop recorder by Dr. Zimmerman Pending JOSE placement PT recommends JOSE for discharge 12/19: Patient went for table tilt test that showed significat for orthostatic hypotension. Patient was started on Floricet 0.1mg daily. He will need JOSE, which is still pending. 12/18: Echo shows normal EF, brain MRI is unremarkable and the EEG was read by the Neurologist as was read by Dr. Koch as abnormal but most likely due to sedation. orthostatic BP was signficant, Dr. Dillard consulted, follow up with him. Head CT negative for acute intracranial abnormality - EKG: sinus rhtythm with first degree AV block at 65bpm, prolonged QT - Follow up: ECHO EEG Brain MRI - Carotid US - negative - B12 640, TSH 1.55, RPR negative, HIV negative, prolactin 13 - possibly secondary to orthostatic hypotension: Lyin/84, sitting 142/97, standing 124/92 - Neurology consult - Dr. Koch - help appreciated, f/u recommendations Vitamin D deficiency - Vitamin D 13.6 - Ergocalciferol 39714I Q7D Pancytopenia - follow up outpatient - MEGHA negative - HIV negative Chronic pancreatitis 12/22: D/C with tramadol and colace 12/18: Patient now on regular diet Lipase 442 - Clear liquid diet - NS @150cc/hr - encourage fluid intake Constipation - Colace 100mg PO BID - Miralax 17gm PO daily Alcohol Abuse - Aspiration and seizure precautions - Librium taper - Ativan IVP PRN seizure - Alcohol withdrawal assessment Q1 - Thiamine and Folic Acid Transaminitis Likely secondary to alcohol abuse and hepatitis C As per chart, pt had positive hep C and was made aware of this in past. Patient admitted that he is currently not taking his Hep C medication. He understands that he can be treated. Discussed importance of treatment for hep C in length. He was urged to follow up with either ID or GI after discharge for treatment. Prophylaxis SCD Protonix 40mg PO daily
[2016-12-23 11:57] VITALS: PULSE 62; O2SAT 98
--- NOTE | 2016-12-23 13:22 | CP.PCM.PN ---
Objective - Vital Signs/Intake and Output Vital Signs (last 24 hours): Temp Pulse Resp BP Pulse Ox 98 F 62 18 137/80 98 12/23/16 08:09 12/23/16 11:51 12/23/16 08:09 12/23/16 08:09 12/23/16 11:51 Intake and Output: 12/23/16 12/23/16 06:59 18:59 Intake Total 340 Output Total 600 Balance -260 - Medications Medications: Current Medications Docusate Sodium (Colace) 100 mg PO BID [facility] Last Admin: 12/23/16 10:10 Dose: 100 mg Ergocalciferol (Drisdol 50,000 Intl Units Cap) 1 cap PO Q7D [facility] Last Admin: 12/17/16 09:18 Dose: 1 cap Fludrocortisone Acetate (Florinef) 0.1 mg PO DAILY [facility] Last Admin: 12/23/16 10:11 Dose: 0.1 mg Folic Acid (Folic Acid) 1 mg PO DAILY [facility] Last Admin: 12/23/16 10:10 Dose: 1 mg Sodium Chloride (Sodium Chloride 0.9%) 1,000 mls @ 150 mls/hr IV .Q6H40M [facility] Last Admin: 12/18/16 07:30 Dose: 150 mls/hr Lorazepam (Ativan) 1 mg IVP Q4H PRN PRN Reason: Seizure activity Last Admin: 12/16/16 10:37 Dose: 1 mg Morphine Sulfate (Morphine) 2 mg IVP Q4 PRN PRN Reason: Pain, severe (8-10) Last Admin: 12/23/16 10:27 Dose: 2 mg Ondansetron HCl (Zofran Inj) 4 mg IVP Q6H PRN PRN Reason: Nausea/Vomiting Last Admin: 12/16/16 14:54 Dose: 4 mg Pantoprazole Sodium (Protonix Ec Tab) 40 mg PO DAILY [facility] Last Admin: 12/23/16 10:10 Dose: 40 mg Polyethylene Glycol (Miralax) 17 gm PO DAILY [facility] Last Admin: 12/23/16 10:12 Dose: 17 gm Thiamine HCl (Vitamin B1 Tab) 100 mg PO DAILY [facility] Last Admin: 12/23/16 10:10 Dose: 100 mg - Labs Labs: 12/23/16 06:02 12/23/16 06:02 PT 11.4 SECONDS (9.7-12.2) 12/16/16 02:09 INR 1.0 12/16/16 02:09 APTT 29 SECONDS (21-34) 12/16/16 02:09
--- NOTE | 2016-12-23 23:33 | CP.PCM.PN ---
Subjective - Date & Time of Evaluation Date of Evaluation: 12/23/16 Time of Evaluation: 08:10 - Subjective Subjective: Patient seen and examined at bedside this AM POD #2 s/p loop recorder placement by Dr. Zimmerman. Patient reports mild pain where it was inserted. Patient reports dizziness with walking. Patient had large bowel movement last night. Patient denies fever, chills, SOB, nausea, vomiting, diarrhea. Patient does not want to go to rehab center for PT. Patient says he will do Home PT and go to outpatient alcohol rehab Objective - Vital Signs/Intake and Output Vital Signs (last 24 hours): Temp Pulse Resp BP Pulse Ox 98 F 79 18 137/80 97 12/23/16 08:09 12/23/16 08:19 12/23/16 08:09 12/23/16 08:09 12/23/16 08:09 Intake and Output: 12/23/16 12/23/16 06:59 18:59 Intake Total 340 Output Total 600 Balance -260 - Medications Medications: Current Medications Docusate Sodium (Colace) 100 mg PO BID [facility] Last Admin: 12/23/16 10:10 Dose: 100 mg Ergocalciferol (Drisdol 50,000 Intl Units Cap) 1 cap PO Q7D [facility] Last Admin: 12/17/16 09:18 Dose: 1 cap Fludrocortisone Acetate (Florinef) 0.1 mg PO DAILY [facility] Last Admin: 12/23/16 10:11 Dose: 0.1 mg Folic Acid (Folic Acid) 1 mg PO DAILY [facility] Last Admin: 12/23/16 10:10 Dose: 1 mg Sodium Chloride (Sodium Chloride 0.9%) 1,000 mls @ 150 mls/hr IV .Q6H40M [facility] Last Admin: 12/18/16 07:30 Dose: 150 mls/hr Lorazepam (Ativan) 1 mg IVP Q4H PRN PRN Reason: Seizure activity Last Admin: 12/16/16 10:37 Dose: 1 mg Morphine Sulfate (Morphine) 2 mg IVP Q4 PRN PRN Reason: Pain, severe (8-10) Last Admin: 12/23/16 10:27 Dose: 2 mg Ondansetron HCl (Zofran Inj) 4 mg IVP Q6H PRN PRN Reason: Nausea/Vomiting Last Admin: 12/16/16 14:54 Dose: 4 mg Pantoprazole Sodium (Protonix Ec Tab) 40 mg PO DAILY [facility] Last Admin: 12/23/16 10:10 Dose: 40 mg Polyethylene Glycol (Miralax) 17 gm PO DAILY [facility] Last Admin: 12/23/16 10:12 Dose: 17 gm Thiamine HCl (Vitamin B1 Tab) 100 mg PO DAILY [facility] Last Admin: 12/23/16 10:10 Dose: 100 mg - Labs Labs: 12/23/16 06:02 12/23/16 06:02 PT 11.4 SECONDS (9.7-12.2) 12/16/16 02:09 INR 1.0 12/16/16 02:09 APTT 29 SECONDS (21-34) 12/16/16 02:09 - Constitutional Appears: Non-toxic, No Acute Distress - Head Exam Head Exam: NORMAL INSPECTION - Eye Exam Eye Exam: EOMI - ENT Exam ENT Exam: Mucous Membranes Moist - Respiratory Exam Respiratory Exam: Chest Wall Tenderness, Clear to Ausculation Bilateral, NORMAL BREATHING PATTERN. absent: Rales, Rhonchi, Wheezes - Cardiovascular Exam Cardiovascular Exam: REGULAR RHYTHM, +S1, +S2. absent: Gallop, Rubs, Murmur - GI/Abdominal Exam GI & Abdominal Exam: Soft, Normal Bowel Sounds. absent: Firm, Guarding, Tenderness - Extremities Exam Extremities Exam: Normal Capillary Refill. absent: Pedal Edema - Neurological Exam Neurological Exam: Alert, Oriented x3 - Psychiatric Exam Psychiatric exam: Normal Affect, Normal Mood - Skin Skin Exam: Normal Color, Warm Objective - Vital Signs/Intake and Output Vital Signs (last 24 hours): Temp Pulse Resp BP Pulse Ox 98 F 62 18 137/80 98 12/23/16 08:09 12/23/16 11:51 12/23/16 08:09 12/23/16 08:09 12/23/16 11:51 - Labs Labs: 12/23/16 06:02 12/23/16 06:02 PT 11.4 SECONDS (9.7-12.2) 12/16/16 02:09 INR 1.0 12/16/16 02:09 APTT 29 SECONDS (21-34) 12/16/16 02:09 Assessment and Plan - Assessment and Plan (Free Text) Assessment: Syncope 12/23:POD #2 s/p loop recorder placement by Dr. Zimmerman Patient does not want JOSE. Patient discharged with home PT and Florinef, MVI, thiamine, colace and tramadol for abdominal pain 3: Secondary to orthostatic hypotension POD#1 s/p Loop recorder by Dr. Zimmerman Pending JOSE placement PT recommends JOSE for discharge 12/19: Patient went for table tilt test that showed significat for orthostatic hypotension. Patient was started on Floricet 0.1mg daily. He will need JOSE, which is still pending. 3: Echo shows normal EF, brain MRI is unremarkable and the EEG was read by the Neurologist as was read by Dr. Koch as abnormal but most likely due to sedation. orthostatic BP was signficant, Dr. Dillard consulted, follow up with him. Head CT negative for acute intracranial abnormality - EKG: sinus rhtythm with first degree AV block at 65bpm, prolonged QT - Follow up: ECHO EEG Brain MRI - Carotid US - negative - B12 640, TSH 1.55, RPR negative, HIV negative, prolactin 13 - possibly secondary to orthostatic hypotension: Lyin/84, sitting 142/97, standing 124/92 - Neurology consult - Dr. Koch - help appreciated, f/u recommendations Vitamin D deficiency - Vitamin D 13.6 - Ergocalciferol [id number] Q7D Pancytopenia - follow up outpatient - MEGHA negative - HIV negative Chronic pancreatitis 12/22: D/C with tramadol and colace 12/18: Patient now on regular diet Lipase 442 - Clear liquid diet - NS @150cc/hr - encourage fluid intake Constipation - Colace 100mg PO BID - Miralax 17gm PO daily Alcohol Abuse - Aspiration and seizure precautions - Librium taper - Ativan IVP PRN seizure - Alcohol withdrawal assessment Q1 - Thiamine and Folic Acid Transaminitis Likely secondary to alcohol abuse and hepatitis C As per chart, pt had positive hep C and was made aware of this in past. Patient admitted that he is currently not taking his Hep C medication. He understands that he can be treated. Discussed importance of treatment for hep C in length. He was urged to follow up with either ID or GI after discharge for treatment. Prophylaxis SCD Protonix 40mg PO daily
--- NOTE | 2016-12-24 07:48 | DS ---
The patient was admitted to the hospital with a chief complaint of abdominal pain, weakness, fatigue, tiredness, shaking. The patient was found to have acute pancreatitis of colic type. The patient wi th rest, n.p.o., IV fluids, pain medications, , physical therapy, psychiatric evaluation. The pa osmel showed gradual slow improvement, discharged today with home PT and set up for alcohol detox as an outpatient. Familia Harris MD cc: [phone] TT: 12/24/2016 03:24:57 tn 12/24/2016 06:47:07
== END 2016-12-23 14:17 | disposition home health service (06) | DRG 142 ==
LOC: C.ER 01:27 → C.9E 04:17 → C.6T 13:48 → OBSVTOIN 12-18 10:16
PROVIDERS: ADMIT Internal Medicine Pulmonary Disease; ATTEND Internal Medicine Pulmonary Disease
PROC: 0JH602Z Insertion of Monitoring Device into Chest Subcutaneous Tissue and Fascia, Open Approach (ICD-10-PCS; principal; 2016-12-18)
PROC: 4A02XFZ Measurement of Cardiac Rhythm, External Approach (ICD-10-PCS; 2016-12-18)
PROC: 4A03XB1 Measurement of Arterial Pressure, Peripheral, External Approach (ICD-10-PCS; 2016-12-18)
DX: I95.1 Orthostatic hypotension (principal); K85.90 Acute pancreatitis without necrosis or infection, unspecified; D61.818 Other pancytopenia; K86.1 Other chronic pancreatitis; F10.239 Alcohol dependence with withdrawal, unspecified; I10 Essential (primary) hypertension; E55.9 Vitamin D deficiency, unspecified; I48.0 Paroxysmal atrial fibrillation; R60.0 Localized edema; M19.90 Unspecified osteoarthritis, unspecified site; K29.70 Gastritis, unspecified, without bleeding; B19.20 Unspecified viral hepatitis C without hepatic coma; K59.00 Constipation, unspecified; D64.9 Anemia, unspecified; Z87.891 Personal history of nicotine dependence; I49.8 Other specified cardiac arrhythmias; Z82.49 Family history of ischemic heart disease and other diseases of the circulatory system

== ENCOUNTER 2017-01-07 15:57 | Inpatient (IN) | payer MEDICAID ==
[2017-01-07 15:57] VITALS: BMI 25.5
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
[2017-01-07 16:51] LABS: BASO % 0.5 % (0.0-2.0); EOS % 0.1 % (0.0-4.0); HEMATOCRIT 30.9 % (35.0-51.0); LYMPH # 1.4 K/uL (1.0-4.3); LYMPH % 27.4 % (20.0-40.0); MEAN CELL VOLUME 91.5 fL (80.0-94.0); MEAN CORPUSCULAR HEMOGLOBIN 30.2 pg (27.0-31.0); MEAN CORPUSCULAR HGB CONC 33.1 g/dL (33.0-37.0); MEAN PLATELET VOLUME 8.9 fL (7.2-11.7); MONO # 0.2 K/uL (0.0-0.8); MONO % 4.3 % (0.0-10.0)
[2017-01-07 16:58] LABS: CHLORIDE 99 mmol/L (98-107)
[2017-01-07 16:59] LABS: POTASSIUM 4.1 mmol/L (3.6-5.2); SODIUM 145 mmol/L (132-148)
[2017-01-07 17:01] LABS: ALB/GLOB RATIO 1.4 (1.0-2.1); AST/SGOT 106 U/L (17-59); BILIRUBIN,TOTAL 0.5 mg/dL (0.2-1.3); BLOOD UREA NITROGEN 23 mg/dL (9-20); CARBON DIOXIDE 20 mmol/L (22-30); GFR AFRICAN-AMERICAN > 60; TOTAL PROTEIN 7.6 g/dL (6.3-8.3)
[2017-01-07 17:02] LABS: ALKALINE PHOSPHATASE 66 U/L (38-126); ALT/SGPT 30 U/L (21-72); CALCIUM 7.9 mg/dl (8.6-10.4); GLUCOSE,RANDOM 64 mg/dL (75-110)
--- NOTE | 2017-01-07 18:51 | RAD ---
PROCEDURE: CHEST RADIOGRAPH, 1 VIEW HISTORY: chest pain COMPARISON: Comparison chest 12/16/2016. FINDINGS: LUNGS: Clear. PLEURA: No pneumothorax or pleural fluid seen. CARDIOVASCULAR: Normal. OSSEOUS STRUCTURES: No significant abnormalities. VISUALIZED UPPER ABDOMEN: Normal. OTHER FINDINGS: None. IMPRESSION: No active disease.
[2017-01-07] MEDS ORDERED: Nitroglycerin 2% Ointment Foilpak UD TOP ONE (18:54)
[2017-01-07] MEDS ORDERED: Nitroglycerin 2% Ointment Foilpak UD TOP STA (18:56)
[2017-01-07] MEDS: HYDROmorphone 1 mg/ml ISec IVP PRN (22:17)
[2017-01-08] MEDS: HYDROmorphone 1 mg/ml ISec IVP PRN ×5 (02:25→22:43)
[2017-01-08 07:41] LABS: BASO % 1.1 % (0.0-2.0); EOS # 0.1 K/uL (0.0-0.7); EOS % 2.6 % (0.0-4.0); HEMATOCRIT 28.6 % (35.0-51.0); LYMPH # 1.1 K/uL (1.0-4.3); LYMPH % 27.9 % (20.0-40.0); MEAN CORPUSCULAR HEMOGLOBIN 30.2 pg (27.0-31.0); MEAN CORPUSCULAR HGB CONC 33.1 g/dL (33.0-37.0); MEAN PLATELET VOLUME 9.6 fL (7.2-11.7); MONO # 0.4 K/uL (0.0-0.8); MONO % 9.3 % (0.0-10.0); NRBC % 0.2 % (0.0-2.0); RED CELL DISTRIBUTION WIDTH 15.8 % (11.5-14.5)
[2017-01-08 08:05] LABS: CHLORIDE 98 mmol/L (98-107); SODIUM 141 mmol/L (132-148)
[2017-01-08 08:06] LABS: POTASSIUM 4.3 mmol/L (3.6-5.2)
[2017-01-08 08:07] LABS: AMYLASE 197 U/L (30-110)
[2017-01-08 08:08] LABS: ALB/GLOB RATIO 1.4 (1.0-2.1); ALKALINE PHOSPHATASE 61 U/L (38-126); ALT/SGPT 28 U/L (21-72); AST/SGOT 78 U/L (17-59); BILIRUBIN,TOTAL 0.8 mg/dL (0.2-1.3); BLOOD UREA NITROGEN 23 mg/dL (9-20); CALCIUM 7.6 mg/dl (8.6-10.4); CARBON DIOXIDE 26 mmol/L (22-30); GFR AFRICAN-AMERICAN > 60; GLUCOSE,RANDOM 74 mg/dL (75-110); TOTAL PROTEIN 7.3 g/dL (6.3-8.3)
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
[2017-01-08] MEDS: Pantoprazole 40 mg EC Tab PO SCH (10:38)
--- NOTE | 2017-01-08 12:55 | CARD ---
APPROVED REPORT EKG Measurement Heart [id number] <Conclusion> Sinus rhythm with 1st degree AV block Left ventricular hypertrophy with QRS widening Nonspecific T wave abnormality Prolonged QT Abnormal ECG
--- NOTE | 2017-01-08 12:55 | CARD ---
APPROVED REPORT EKG Measurement Heart [id number] <Conclusion> Normal sinus rhythm Nonspecific T wave abnormality Prolonged QT Abnormal ECG
[2017-01-08] MEDS: Thiamine 100 mg/ml Inj IM SCH (13:04)
[2017-01-09] MEDS: HYDROmorphone 1 mg/ml ISec IVP PRN ×5 (03:06→19:22)
--- NOTE | 2017-01-09 09:31 | HP ---
The patient is a 61-year-old male admitted to the hospital with chief complaint of syncopal episode. The patient had a previous episode of syncope, seen by agricultural extension agent, had a loop recorder. The patie nt ____. The patient is a retired ____. PHYSICAL EXAMINATION: GENERAL: The patient is awake, alert, oriented. HEENT: There is abrasion on the face present. VITAL SIGNS: Temperature 98, pulse is 90, blood pressure 120/70. Slight shaky tremors present. NECK: Supple. CHEST: Symmetrical. HEART: Regular. ABDOMEN: Soft. EXTREMITIES: No edema. The patient suffered syncope. ____. The patient will get bedrest, supportive care, meclizine. Familia Harris MD cc: [id number] TT: 01/08/2017 10:52:43 tn
[2017-01-09] MEDS: Pantoprazole 40 mg EC Tab PO SCH (09:57)
[2017-01-09] MEDS: Thiamine 100 mg/ml Inj IM SCH (09:59)
[2017-01-09] MEDS: Multiple Vitamins Tab PO SCH (10:17)
--- NOTE | 2017-01-09 11:36 | CP.PCM.PN ---
<Massimo Vargas - Last Filed: 01/09/17 11:33> Subjective - Date & Time of Evaluation Date of Evaluation: 01/09/17 Time of Evaluation: 11:33 - Subjective Subjective: Cardoilogy Progress Note Dr. Zimmerman Patient seen and examined at the bedside. No acute distress. The patient reports multiple emetic episodes overnight and 4 episodes of diarrhea overnight. The nursing staff reports no additional issues. The patient denies denies syncopal episodes, lightheadedness. The patient denies fever, chills, headache, chest pain, palpitations, orthopnea, PND, SOB, abdominal pain, and extremity weakness. Objective - Vital Signs/Intake and Output Vital Signs (last 24 hours): Temp Pulse Resp BP Pulse Ox 98.1 F 103 H 20 124/79 99 01/09/17 08:29 01/09/17 08:29 01/09/17 08:29 01/09/17 08:29 01/09/17 08:29 Intake and Output: 01/09/17 01/09/17 06:59 18:59 Intake Total 440 Balance 440 - Medications Medications: Current Medications Fludrocortisone Acetate (Florinef) 0.1 mg PO DAILY [facility] Folic Acid (Folic Acid) 1 mg PO DAILY [facility] Last Admin: 01/09/17 09:57 Dose: 1 mg Heparin Sodium (Porcine) (Heparin) 5,000 units SC Q12 [facility] Last Admin: 01/09/17 09:58 Dose: 5,000 units Hydromorphone HCl (Dilaudid) 1 mg IVP Q4H PRN PRN Reason: Pain, moderate (4-7) Last Admin: 01/09/17 11:05 Dose: 1 mg Lorazepam (Ativan) 2 mg IVP Q8 PRN PRN Reason: Anxiety/ Tremors Last Admin: 01/09/17 02:33 Dose: 2 mg Lorazepam (Ativan) 2 mg IVP Q8H [facility] PRN Reason: Taper Stop: 01/14/17 09:59 Last Admin: 01/09/17 09:58 Dose: 2 mg Multivitamins (Hexavitamin) 1 tab PO DAILY [facility] Last Admin: 01/09/17 10:17 Dose: 1 tab Pantoprazole Sodium (Protonix Ec Tab) 40 mg PO DAILY [facility] Last Admin: 01/09/17 09:57 Dose: 40 mg Pneumococcal Polyvalent Vaccine (Pneumovax 23 Vaccine) 0.5 ml IM .ONCE ONE Stop: 01/10/17 10:01 Thiamine HCl (Vitamin B1 Inj) 100 mg IM DAILY [facility] Last Admin: 01/09/17 09:59 Dose: 100 mg - Labs Labs: 01/08/17 07:22 01/08/17 07:22 - Constitutional Appears: Toxic - Head Exam Head Exam: ATRAUMATIC, NORMAL INSPECTION, NORMOCEPHALIC - Eye Exam Eye Exam: EOMI - ENT Exam ENT Exam: Mucous Membranes Moist - Neck Exam Neck Exam: Full ROM. absent: Lymphadenopathy - Respiratory Exam Respiratory Exam: Clear to Ausculation Bilateral, NORMAL BREATHING PATTERN. absent: Rhonchi, Wheezes - Cardiovascular Exam Cardiovascular Exam: REGULAR RHYTHM, RRR, +S1, +S2. absent: Diastolic murmur, Murmur - GI/Abdominal Exam GI & Abdominal Exam: Soft, Tenderness (diffuse), Normal Bowel Sounds. absent: Guarding, Rigid - Extremities Exam Extremities Exam: Full ROM, Normal Capillary Refill, Normal Inspection. absent : Joint Swelling, Pedal Edema - Neurological Exam Neurological Exam: Alert, Awake, CN II-XII Intact, Oriented x3 - Skin Skin Exam: Dry, Intact, Normal Color, Warm Assessment and Plan (1) Syncope Assessment & Plan: - likely 2/2 to orthostasis - orthostatic vital signs ordered QAM - florinef 0.1mg PO daily added - EKGs No change from previous - 01/07/17 17:10- Normal Sinus Rhythm, prolonged KS interval, abnormal R wave progression pattern in precordial leads, Prolonged QT, abnormal T waves, minimal voltage criteria for LVH (no change from previous) - 01/07/17 15:57- Normal Sinus Rhythm, prolonged KS interval, abnormal R wave progression pattern in precordial leads, Prolonged QT, abnormal T waves, minimal voltage criteria for LVH - 12/16/16 EKG- Normal Sinus Rhythm, prolonged KS interval, abnormal R wave progression pattern in precordial leads, Prolonged QT, abnormal T waves, minimal voltage criteria for LVH - 12/16/16 Echo- 76% LVEF - Continue medical management as per the primary team - follow with Dr. Zimmerman in his office/clinic Status: h (2) History of loop recorder Assessment & Plan: - Loop recorder interrogated 4/13/17- no abnormal cardiac activity Status: h - Assessment and Plan (Free Text) Plan: Case Discussed with Dr. Elsie Vargas PGY1 <Noel Zimmerman - Last Filed: 02/16/17 05:30> Objective - Vital Signs/Intake and Output Vital Signs (last 24 hours): Temp Pulse Resp BP Pulse Ox 97 F L 78 12 121/76 100 01/16/17 13:05 01/16/17 13:35 01/16/17 13:35 01/16/17 13:35 01/16/17 13:35 - Labs Labs: 01/16/17 08:48 01/16/17 08:48 Attending/Attestation - Attestation I have personally seen and examined this patient.: Yes I have fully participated in the care of the patient.: Yes I have reviewed all pertinent clinical information, including history, physical exam and plan: Yes Notes (Text): 02/16/17 05:29 pt etoh abuse will check loop for asystole
[2017-01-09 11:37] LABS: BASO % 0.5 % (0.0-2.0); EOS # 0.1 K/uL (0.0-0.7); HEMATOCRIT 29.3 % (35.0-51.0); LYMPH # 1.5 K/uL (1.0-4.3); LYMPH % 24.6 % (20.0-40.0); MEAN CELL VOLUME 92.3 fL (80.0-94.0); MEAN CORPUSCULAR HEMOGLOBIN 30.1 pg (27.0-31.0); MEAN CORPUSCULAR HGB CONC 32.6 g/dL (33.0-37.0); MEAN PLATELET VOLUME 10.2 fL (7.2-11.7); MONO # 0.5 K/uL (0.0-0.8); MONO % 7.9 % (0.0-10.0); NRBC % 0.2 % (0.0-2.0); RED CELL DISTRIBUTION WIDTH 15.9 % (11.5-14.5)
[2017-01-09 11:42] LABS: WHITE BLOOD COUNT 6.1 K/uL (4.8-10.8)
[2017-01-09 12:02] LABS: CHLORIDE 90 mmol/L (98-107); SODIUM 138 mmol/L (132-148)
[2017-01-09 12:04] LABS: BILIRUBIN,TOTAL 1.1 mg/dL (0.2-1.3); GFR AFRICAN-AMERICAN > 60
[2017-01-09 12:05] LABS: ALB/GLOB RATIO 1.4 (1.0-2.1); ALKALINE PHOSPHATASE 57 U/L (38-126); ALT/SGPT 20 U/L (21-72); AST/SGOT 68 U/L (17-59); BLOOD UREA NITROGEN 38 mg/dL (9-20); CALCIUM 8.8 mg/dl (8.6-10.4); CARBON DIOXIDE 31 mmol/L (22-30); GLUCOSE,RANDOM 117 mg/dL (75-110); TOTAL PROTEIN 7.9 g/dL (6.3-8.3)
[2017-01-09 12:06] LABS: MAGNESIUM 1.5 mg/dL (1.6-2.3)
--- NOTE | 2017-01-09 12:18 | CP.PCM.PN ---
Subjective - Date & Time of Evaluation Date of Evaluation: 01/09/17 Time of Evaluation: 07:30 - Subjective Subjective: Medicine Progress Note- Dr. Rosen's Service: Patient seen and examined at bedside this AM. Patient is complaining of epigastric pain. Admits to episode of diarrhea, abdominal pain, chest pain, headache last night at 9:30 pm. Symptoms improved with Ativan. He was only able to sleep 1 hour last night. Denies chest pain, fevers, chills, vomiting this AM. Admits to abdominal pain and nausea this AM. Objective - Vital Signs/Intake and Output Vital Signs (last 24 hours): Temp Pulse Resp BP Pulse Ox 98.1 F 103 H 20 124/79 99 01/09/17 08:29 01/09/17 08:29 01/09/17 08:29 01/09/17 08:29 01/09/17 08:29 Intake and Output: 01/09/17 01/09/17 06:59 18:59 Intake Total 440 Balance 440 - Medications Medications: Current Medications Fludrocortisone Acetate (Florinef) 0.1 mg PO DAILY [facility] Last Admin: 01/09/17 11:58 Dose: 0.1 mg Folic Acid (Folic Acid) 1 mg PO DAILY [facility] Last Admin: 01/09/17 09:57 Dose: 1 mg Heparin Sodium (Porcine) (Heparin) 5,000 units SC Q12 [facility] Last Admin: 01/09/17 09:58 Dose: 5,000 units Hydromorphone HCl (Dilaudid) 1 mg IVP Q4H PRN PRN Reason: Pain, moderate (4-7) Last Admin: 01/09/17 11:05 Dose: 1 mg Lorazepam (Ativan) 2 mg IVP Q8 PRN PRN Reason: Anxiety/ Tremors Last Admin: 01/09/17 02:33 Dose: 2 mg Lorazepam (Ativan) 2 mg IVP Q8H [facility] PRN Reason: Taper Stop: 01/14/17 09:59 Last Admin: 01/09/17 09:58 Dose: 2 mg Multivitamins (Hexavitamin) 1 tab PO DAILY [facility] Last Admin: 01/09/17 10:17 Dose: 1 tab Pantoprazole Sodium (Protonix Ec Tab) 40 mg PO DAILY [facility] Last Admin: 01/09/17 09:57 Dose: 40 mg Pneumococcal Polyvalent Vaccine (Pneumovax 23 Vaccine) 0.5 ml IM .ONCE ONE Stop: 01/10/17 10:01 Thiamine HCl (Vitamin B1 Inj) 100 mg IM DAILY [facility] Last Admin: 01/09/17 09:59 Dose: 100 mg - Labs Labs: 01/09/17 11:24 01/08/17 07:22 - Constitutional Appears: No Acute Distress - Head Exam Head Exam: NORMAL INSPECTION, NORMOCEPHALIC - Eye Exam Eye Exam: EOMI, Normal appearance - ENT Exam ENT Exam: Mucous Membranes Moist - Neck Exam Neck Exam: Full ROM, Normal Inspection - Respiratory Exam Respiratory Exam: Clear to Ausculation Bilateral, NORMAL BREATHING PATTERN - Cardiovascular Exam Cardiovascular Exam: REGULAR RHYTHM, +S1, +S2 - GI/Abdominal Exam GI & Abdominal Exam: Soft, Tenderness (epigatric ttp). absent: Distended - Extremities Exam Extremities Exam: Normal Inspection. absent: Pedal Edema - Neurological Exam Neurological Exam: Alert, Awake, Oriented x3 - Psychiatric Exam Psychiatric exam: Flat Affect, Normal Mood - Skin Skin Exam: Normal Color, Warm Assessment and Plan - Assessment and Plan (Free Text) Assessment: (1) Syncope Assessment & Plan: Likely, alcohol intoxication related. Consult Cardio- Dr. Zimmerman Last echo- 12/16/16- Mild concentric LVH, Normal LV systolic dysfunction, EF >70% , LA borderline dilated, Grade I abnormal relation pattern EKG- 01/07/17- No change from previou Alcohol level on admission was 344 Carotid Doppler on 12/16/16- normal 12/16/16 Echo- 76% LVEF As per cardio: Likely 2/2 to orthostasis orthostatic vital signs ordered QAM Florinef 0.1mg PO daily added Status: Acute (2) Alcohol abuse Assessment & Plan: Alcohol level on admission was 344 Started on Ativan taper for withdrawal symptoms Continue Ativan 2mg IVP Q8h PRN Thiamine 100mg IM Daily Folic acid 1mg PO Daily MV PO daily Monitor for withdrawal symptoms. Status: Acute (3) History of loop recorder Assessment & Plan: - Loop recorder interrogated 01/08/17- no abnormal cardiac activity (4) Prophylactic measure Assessment & Plan: Heparin 5000U SC Q12h Protonix 40mg PO Daily SCDs Status: Acute All medical management as per Dr. Rosen.
[2017-01-10] MEDS: HYDROmorphone 1 mg/ml ISec IVP PRN ×4 (00:35→23:21)
--- NOTE | 2017-01-10 08:59 | CP.PCM.PN ---
Subjective - Date & Time of Evaluation Date of Evaluation: 01/10/17 Time of Evaluation: 08:10 - Subjective Subjective: no complaints tolerating po Objective - Vital Signs/Intake and Output Vital Signs (last 24 hours): Temp Pulse Resp BP Pulse Ox 98.1 F 86 20 106/66 99 01/10/17 08:29 01/10/17 08:29 01/10/17 08:29 01/10/17 08:29 01/10/17 08:29 Intake and Output: 01/10/17 01/10/17 06:59 18:59 Intake Total 730 Balance 730 - Medications Medications: Current Medications Fludrocortisone Acetate (Florinef) 0.1 mg PO DAILY [facility] Last Admin: 01/09/17 11:58 Dose: 0.1 mg Folic Acid (Folic Acid) 1 mg PO DAILY [facility] Last Admin: 01/09/17 09:57 Dose: 1 mg Heparin Sodium (Porcine) (Heparin) 5,000 units SC Q12 [facility] Last Admin: 01/09/17 21:34 Dose: 5,000 units Hydromorphone HCl (Dilaudid) 1 mg IVP Q4H PRN PRN Reason: Pain, moderate (4-7) Last Admin: 01/10/17 00:35 Dose: 1 mg Lorazepam (Ativan) 2 mg IVP Q8 PRN PRN Reason: Anxiety/ Tremors Last Admin: 01/09/17 02:33 Dose: 2 mg Lorazepam (Ativan) 2 mg IVP Q8H [facility] PRN Reason: Taper Stop: 01/14/17 09:59 Last Admin: 01/10/17 03:00 Dose: 2 mg Multivitamins (Hexavitamin) 1 tab PO DAILY [facility] Last Admin: 01/09/17 10:17 Dose: 1 tab Ondansetron HCl (Zofran Inj) 4 mg IVP Q6H PRN PRN Reason: Nausea/Vomiting Last Admin: 01/09/17 21:35 Dose: 4 mg Pantoprazole Sodium (Protonix Ec Tab) 40 mg PO DAILY [facility] Last Admin: 01/09/17 09:57 Dose: 40 mg Pneumococcal Polyvalent Vaccine (Pneumovax 23 Vaccine) 0.5 ml IM .ONCE ONE Stop: 01/10/17 10:01 Thiamine HCl (Vitamin B1 Inj) 100 mg IM DAILY [facility] Last Admin: 01/09/17 09:59 Dose: 100 mg - Constitutional Appears: Chronically Ill - Head Exam Head Exam: NORMOCEPHALIC - Eye Exam Eye Exam: Normal appearance - ENT Exam ENT Exam: Mucous Membranes Moist - Respiratory Exam Respiratory Exam: Clear to Ausculation Bilateral - Cardiovascular Exam Cardiovascular Exam: REGULAR RHYTHM - GI/Abdominal Exam GI & Abdominal Exam: Soft - Exam External exam: NORMAL EXTERNAL EXAM - Extremities Exam Extremities Exam: Normal Inspection - Neurological Exam Neurological Exam: Alert, Awake - Psychiatric Exam Psychiatric exam: absent: Agitated - Skin Skin Exam: Warm Assessment and Plan (1) Alcohol intoxication Assessment & Plan: no events on loop rcorder continue etoh withdrawal meds Status: Acute (2) Syncope Status: Acute
[2017-01-10] MEDS: Pantoprazole 40 mg EC Tab PO SCH (09:20)
[2017-01-10] MEDS: Multiple Vitamins Tab PO SCH (09:21)
[2017-01-10] MEDS ORDERED: Pneumococcal 23-Valent Vaccine IM ONE (10:00)
[2017-01-10] MEDS: Thiamine 100 mg/ml Inj IM SCH (12:20)
[2017-01-11] MEDS: HYDROmorphone 1 mg/ml ISec IVP PRN ×2 (07:59→12:05)
[2017-01-11] MEDS: Multiple Vitamins Tab PO SCH (11:20)
[2017-01-11] MEDS: Thiamine 100 mg/ml Inj IM SCH (11:21)
[2017-01-11] MEDS: Pantoprazole 40 mg EC Tab PO SCH (11:23)
--- NOTE | 2017-01-12 07:15 | PN ---
DATE: 01/10/2017 Patient needs supportive care, pain medication, hydration. Familia Harris MD cc: [id number] TT: 01/11/2017 00:43:27 Confirmation # [id number] Dictation # [id number]
--- NOTE | 2017-01-12 07:26 | PN ---
DATE: 01/11/2017 The patient is getting supportive care. Continue treatment. The patient is complaining of increasin g pain. Will get supportive care. Prognosis is guarded. Familia Harris MD cc: [id number] TT: 01/11/2017 15:40:34 Confirmation # [id number] Dictation # [id number]
[2017-01-12] MEDS: Pantoprazole 40 mg EC Tab PO SCH (09:27)
[2017-01-12] MEDS: Multiple Vitamins Tab PO SCH (09:27)
[2017-01-12] MEDS: Thiamine 100 mg/ml Inj IM SCH (09:28)
--- NOTE | 2017-01-12 11:23 | CP.PCM.PN ---
<Massimo Vargas - Last Filed: 01/12/17 16:21> Subjective - Date & Time of Evaluation Date of Evaluation: 01/12/17 Time of Evaluation: 11:19 - Subjective Subjective: Cardoilogy Progress Note Dr. Zimmerman Patient seen and examined at the bedside. No acute distress. No acute events overnight. The nursing staff reports no additional issues. The patient denies denies syncopal episodes, lightheadedness. The patient denies fever, chills, headache, chest pain, palpitations, orthopnea, PND, SOB, abdominal pain, and extremity weakness. Objective - Vital Signs/Intake and Output Vital Signs (last 24 hours): Temp Pulse Resp BP Pulse Ox 97.9 F 69 19 125/72 96 01/12/17 08:00 01/12/17 08:00 01/12/17 08:00 01/12/17 08:00 01/12/17 08:00 Intake and Output: 01/12/17 01/12/17 06:59 18:59 Intake Total 350 Balance 350 - Medications Medications: Current Medications Fludrocortisone Acetate (Florinef) 0.1 mg PO DAILY [facility] Last Admin: 01/12/17 09:26 Dose: 0.1 mg Folic Acid (Folic Acid) 1 mg PO DAILY [facility] Last Admin: 01/12/17 09:27 Dose: 1 mg Hydromorphone HCl (Dilaudid) 2 mg IVP Q4H PRN PRN Reason: pain Last Admin: 01/12/17 08:13 Dose: 2 mg Loperamide HCl (Imodium) 1 mg PO Q8H PRN PRN Reason: diarrhea Lorazepam (Ativan) 2 mg IVP Q8 PRN PRN Reason: Anxiety/ Tremors Last Admin: 01/09/17 02:33 Dose: 2 mg Lorazepam (Ativan) 1 mg IVP Q12H [facility] PRN Reason: Taper Stop: 01/14/17 09:59 Last Admin: 01/12/17 09:27 Dose: 1 mg Multivitamins (Hexavitamin) 1 tab PO DAILY [facility] Last Admin: 01/12/17 09:27 Dose: 1 tab Ondansetron HCl (Zofran Inj) 4 mg IVP Q6H PRN PRN Reason: Nausea/Vomiting Last Admin: 01/09/17 21:35 Dose: 4 mg Pantoprazole Sodium (Protonix Ec Tab) 40 mg PO DAILY [facility] Last Admin: 01/12/17 09:27 Dose: 40 mg Thiamine HCl (Vitamin B1 Inj) 100 mg IM DAILY [facility] Last Admin: 01/12/17 09:28 Dose: 100 mg - Additional Findings Additional findings: - Constitutional Appears: Toxic - Head Exam Head Exam: ATRAUMATIC, NORMAL INSPECTION, NORMOCEPHALIC - Eye Exam Eye Exam: EOMI - ENT Exam ENT Exam: Mucous Membranes Moist - Neck Exam Neck Exam: Full ROM. absent: Lymphadenopathy - Respiratory Exam Respiratory Exam: Clear to Ausculation Bilateral, NORMAL BREATHING PATTERN. absent: Rhonchi, Wheezes - Cardiovascular Exam Cardiovascular Exam: REGULAR RHYTHM, RRR, +S1, +S2. absent: Diastolic murmur, Murmur - GI/Abdominal Exam GI & Abdominal Exam: Soft, Tenderness (diffuse), Normal Bowel Sounds. absent: Guarding, Rigid - Extremities Exam Extremities Exam: Full ROM, Normal Capillary Refill, Normal Inspection. absent : Joint Swelling, Pedal Edema - Neurological Exam Neurological Exam: Alert, Awake, CN II-XII Intact, Oriented x3 - Skin Skin Exam: Dry, Intact, Normal Color, Warm Assessment and Plan (1) Syncope Assessment & Plan: likely 2/2 to orthostasis vsw alcohol abuse/withdrawal orthostatic vital signs ordered QAM - 01/12/17: Standing : Sitting : Lying Florinef 0.1mg PO daily EKGs No change from previous - 01/07/17 17:10- Normal Sinus Rhythm, prolonged [place] interval, abnormal R wave progression pattern in precordial leads, Prolonged QT, abnormal T waves, minimal voltage criteria for LVH (no change from previous) - 01/07/17 15:57- Normal Sinus Rhythm, prolonged NM interval, abnormal R wave progression pattern in precordial leads, Prolonged QT, abnormal T waves, minimal voltage criteria for LVH - 12/16/16 EKG- Normal Sinus Rhythm, prolonged NM interval, abnormal R wave progression pattern in precordial leads, Prolonged QT, abnormal T waves, minimal voltage criteria for LVH 12/16/16 Echo- 76% LVEF Continue medical management as per the primary team follow with Dr. Zimmerman in his office/clinic no additional cardiac intervention at this time Dr. Zimmerman and the cardiology service will sign off at this time. Please re- consult as needed. Thank you. Status: h (2) History of loop recorder Assessment & Plan: Loop recorder interrogated 01/08/17- no abnormal cardiac activity Status: h - Assessment and Plan (Free Text) Plan: Case discussed with Dr. Elsie Vargas PGY1 <Noel Zimmerman - Last Filed: 02/16/17 05:32> Objective - Vital Signs/Intake and Output Vital Signs (last 24 hours): Temp Pulse Resp BP Pulse Ox 97 F L 78 12 121/76 100 01/16/17 13:05 01/16/17 13:35 01/16/17 13:35 01/16/17 13:35 01/16/17 13:35 - Labs Labs: 01/16/17 08:48 01/16/17 08:48 Attending/Attestation - Attestation I have personally seen and examined this patient.: Yes I have fully participated in the care of the patient.: Yes I have reviewed all pertinent clinical information, including history, physical exam and plan: Yes Notes (Text): 02/16/17 05:32 no events on loop recorder continue iv hydration
--- NOTE | 2017-01-12 11:29 | CP.PCM.PN ---
Subjective - Date & Time of Evaluation Date of Evaluation: 01/12/17 Time of Evaluation: 08:50 - Subjective Subjective: Medicine Note- Dr. Rosen's service Patient was seen and examined at bedside. Patient reports that overnight, he had abdominal pain that woke him up from his sleep around 2am. He had 2 episodes of vomiting, once at around 2am and another around 7am. He also says he still has watery diarrhea, but it has calmed down a bit. No additional acute complaints. Currently mild abdominal pain. Objective - Vital Signs/Intake and Output Vital Signs (last 24 hours): Temp Pulse Resp BP Pulse Ox 97.9 F 69 19 125/72 96 01/12/17 08:00 01/12/17 08:00 01/12/17 08:00 01/12/17 08:00 01/12/17 08:00 Intake and Output: 01/12/17 01/12/17 06:59 18:59 Intake Total 350 Balance 350 - Medications Medications: Current Medications Fludrocortisone Acetate (Florinef) 0.1 mg PO DAILY [facility] Last Admin: 01/12/17 09:26 Dose: 0.1 mg Folic Acid (Folic Acid) 1 mg PO DAILY [facility] Last Admin: 01/12/17 09:27 Dose: 1 mg Hydromorphone HCl (Dilaudid) 2 mg IVP Q4H PRN PRN Reason: pain Last Admin: 01/12/17 08:13 Dose: 2 mg Loperamide HCl (Imodium) 2 mg PO Q8H PRN PRN Reason: diarrhea Lorazepam (Ativan) 2 mg IVP Q8 PRN PRN Reason: Anxiety/ Tremors Last Admin: 01/09/17 02:33 Dose: 2 mg Lorazepam (Ativan) 1 mg IVP Q12H [facility] PRN Reason: Taper Stop: 01/14/17 09:59 Last Admin: 01/12/17 09:27 Dose: 1 mg Multivitamins (Hexavitamin) 1 tab PO DAILY [facility] Last Admin: 01/12/17 09:27 Dose: 1 tab Ondansetron HCl (Zofran Inj) 4 mg IVP Q6H PRN PRN Reason: Nausea/Vomiting Last Admin: 01/09/17 21:35 Dose: 4 mg Pantoprazole Sodium (Protonix Ec Tab) 40 mg PO DAILY [facility] Last Admin: 01/12/17 09:27 Dose: 40 mg Thiamine HCl (Vitamin B1 Inj) 100 mg IM DAILY [facility] Last Admin: 01/12/17 09:28 Dose: 100 mg - Constitutional Appears: Non-toxic, No Acute Distress - Head Exam Head Exam: ATRAUMATIC, NORMAL INSPECTION, NORMOCEPHALIC - Eye Exam Pupil Exam: NORMAL ACCOMODATION - ENT Exam ENT Exam: Mucous Membranes Moist, Normal Exam - Respiratory Exam Respiratory Exam: Clear to Ausculation Bilateral, NORMAL BREATHING PATTERN. absent: Prolonged Expiratory Phase, Rales, Rhonchi, Wheezes - Cardiovascular Exam Cardiovascular Exam: REGULAR RHYTHM, +S1, +S2 - GI/Abdominal Exam GI & Abdominal Exam: Soft, Normal Bowel Sounds. absent: Tenderness, Diminished Bowel Sounds, Hernia, Hypoactive Bowel Sounds - Extremities Exam Extremities Exam: Normal Capillary Refill, Normal Inspection - Neurological Exam Neurological Exam: Alert, Awake, Oriented x3 - Psychiatric Exam Psychiatric exam: Normal Affect, Normal Mood - Skin Skin Exam: Dry, Intact, Normal Color, Warm Assessment and Plan (1) Syncope Status: Acute (2) Alcohol abuse Status: Acute (3) Prophylactic measure Status: Acute - Assessment and Plan (Free Text) Assessment: (1) Syncope Assessment & Plan: Consult Cardio- Dr. Zimmerman Last echo- 12/16/16- Mild concentric LVH, Normal LV systolic dysfunction, EF >70% , LA borderline dilated, Grade I abnormal relation pattern EKG- 01/07/17- No change from previou Alcohol level on admission was 344 Carotid Doppler on 12/16/16- normal 12/16/16 Echo- 76% LVEF As per cardio: Likely 2/2 to orthostasis orthostatic vital signs ordered QAM Florinef 0.1mg PO daily added Status: Acute (2) Alcohol abuse Assessment & Plan: Alcohol level on admission was 344 Continue Ativan taper for withdrawal symptoms Continue Ativan 2mg IVP Q8h PRN Thiamine 100mg IM Daily Folic acid 1mg PO Daily MV PO daily Monitor for withdrawal symptoms. Status: Acute (3) History of loop recorder Assessment & Plan: - Loop recorder interrogated 01/08/17- no abnormal cardiac activity (4) Prophylactic measure Assessment & Plan: Heparin 5000U SC Q12h Protonix 40mg PO Daily SCDs Status: Acute (5) Abdominal Pain Assessment & Plan: Patient likely withdrawing with associated nausea and vomiting. Seizure precautions Aspiration precautions Zofran IVP PRN added Ativan taper added continue Ativan PRN Lipase WNL Stool studies sent for diarrhea. All medical management as per Dr. Rosen.
[2017-01-13 08:35] LABS: CHLORIDE 97 mmol/L (98-107); SODIUM 135 mmol/L (132-148)
[2017-01-13 08:36] LABS: POTASSIUM 3.7 mmol/L (3.6-5.2)
[2017-01-13 08:37] LABS: GFR AFRICAN-AMERICAN > 60
[2017-01-13 08:38] LABS: ALB/GLOB RATIO 1.4 (1.0-2.1); ALKALINE PHOSPHATASE 50 U/L (38-126); ALT/SGPT 41 U/L (21-72); AST/SGOT 83 U/L (17-59); BILIRUBIN,TOTAL 0.5 mg/dL (0.2-1.3); BLOOD UREA NITROGEN 13 mg/dL (9-20); CARBON DIOXIDE 28 mmol/L (22-30); GLUCOSE,RANDOM 100 mg/dL (75-110); PHOSPHOROUS 3.6 mg/dL (2.5-4.5); TOTAL PROTEIN 6.6 g/dL (6.3-8.3)
[2017-01-13 08:39] LABS: BASO % 0.7 % (0.0-2.0); CALCIUM 8.5 mg/dl (8.6-10.4); EOS # 0.1 K/uL (0.0-0.7); EOS % 2.6 % (0.0-4.0); LYMPH # 0.9 K/uL (1.0-4.3); LYMPH % 24.6 % (20.0-40.0); MAGNESIUM 1.2 mg/dL (1.6-2.3); MEAN PLATELET VOLUME 10.7 fL (7.2-11.7); MONO # 0.5 K/uL (0.0-0.8); NRBC % 0.1 % (0.0-2.0); RED CELL DISTRIBUTION WIDTH 15.8 % (11.5-14.5); WHITE BLOOD COUNT 3.6 K/uL (4.8-10.8)
[2017-01-13 08:42] LABS: HEMATOCRIT 22.1 % (35.0-51.0); MEAN CELL VOLUME 93.5 fL (80.0-94.0); MEAN CORPUSCULAR HEMOGLOBIN 30.7 pg (27.0-31.0); MEAN CORPUSCULAR HGB CONC 32.8 g/dL (33.0-37.0)
[2017-01-13] MEDS: Multiple Vitamins Tab PO SCH (09:04)
[2017-01-13] MEDS: Pantoprazole 40 mg EC Tab PO SCH (09:04)
[2017-01-13 09:54] LABS: C DIFF TOXIN A B NEGATIVE (NEGATIVE)
--- NOTE | 2017-01-13 10:16 | CP.PCM.PN ---
Subjective - Date & Time of Evaluation Date of Evaluation: 01/13/17 Time of Evaluation: 07:20 - Subjective Subjective: Medicine Note- Dr. Rosen's service Patient was seen and examined at bedside. Patient reports he is still having some abdominal pain and diarrhea, but he was able to tolerate PO yesterday and keep it down. Patient has no additional acute complaints. No events overnight. Objective - Vital Signs/Intake and Output Vital Signs (last 24 hours): Temp Pulse Resp BP Pulse Ox 98.2 F 98 H 20 118/76 96 01/13/17 07:26 01/13/17 07:26 01/13/17 07:26 01/13/17 07:26 01/13/17 07:26 - Medications Medications: Current Medications Fludrocortisone Acetate (Florinef) 0.1 mg PO DAILY [facility] Last Admin: 01/13/17 09:05 Dose: 0.1 mg Folic Acid (Folic Acid) 1 mg PO DAILY [facility] Last Admin: 01/13/17 09:04 Dose: 1 mg Hydromorphone HCl (Dilaudid) 2 mg IVP Q4H PRN PRN Reason: pain Last Admin: 01/13/17 09:05 Dose: 2 mg Loperamide HCl (Imodium) 2 mg PO Q8H PRN PRN Reason: diarrhea Last Admin: 01/12/17 11:34 Dose: 2 mg Lorazepam (Ativan) 2 mg IVP Q8 PRN PRN Reason: Anxiety/ Tremors Last Admin: 01/09/17 02:33 Dose: 2 mg Lorazepam (Ativan) 1 mg IVP DAILY [facility] PRN Reason: Taper Stop: 01/14/17 09:59 Last Admin: 01/12/17 21:44 Dose: 1 mg Multivitamins (Hexavitamin) 1 tab PO DAILY [facility] Last Admin: 01/13/17 09:04 Dose: 1 tab Ondansetron HCl (Zofran Inj) 4 mg IVP Q6H PRN PRN Reason: Nausea/Vomiting Last Admin: 01/09/17 21:35 Dose: 4 mg Pantoprazole Sodium (Protonix Ec Tab) 40 mg PO DAILY [facility] Last Admin: 01/13/17 09:04 Dose: 40 mg Thiamine HCl (Vitamin B1 Inj) 100 mg IM DAILY [facility] Last Admin: 01/12/17 09:28 Dose: 100 mg - Labs Labs: 01/13/17 08:12 01/13/17 08:12 - Constitutional Appears: Non-toxic, No Acute Distress - Head Exam Head Exam: ATRAUMATIC, NORMAL INSPECTION, NORMOCEPHALIC - Eye Exam Pupil Exam: NORMAL ACCOMODATION, PERRL - ENT Exam ENT Exam: Mucous Membranes Moist - Respiratory Exam Respiratory Exam: Clear to Ausculation Bilateral, NORMAL BREATHING PATTERN. absent: Prolonged Expiratory Phase, Rales, Rhonchi, Wheezes - Cardiovascular Exam Cardiovascular Exam: REGULAR RHYTHM, +S1, +S2 - GI/Abdominal Exam GI & Abdominal Exam: Soft, Tenderness, Normal Bowel Sounds. absent: Firm, Diminished Bowel Sounds, Hypoactive Bowel Sounds - Extremities Exam Extremities Exam: Normal Capillary Refill, Normal Inspection - Neurological Exam Neurological Exam: Alert, Awake, Oriented x3 - Psychiatric Exam Psychiatric exam: Normal Affect, Normal Mood - Skin Skin Exam: Dry, Intact, Normal Color, Warm Assessment and Plan (1) Syncope Status: Acute (2) Alcohol abuse Status: Acute (3) Prophylactic measure Status: Acute - Assessment and Plan (Free Text) Assessment: (1) Syncope Assessment & Plan: Consult Cardio- Dr. Zimmerman Last echo- 12/16/16- Mild concentric LVH, Normal LV systolic dysfunction, EF >70% , LA borderline dilated, Grade I abnormal relation pattern EKG- 01/07/17- No change from previou Alcohol level on admission was 344 Carotid Doppler on 12/16/16- normal 12/16/16 Echo- 76% LVEF As per cardio: Likely 2/2 to orthostasis orthostatic vital signs ordered QAM Florinef 0.1mg PO daily added Status: Acute (2) Alcohol abuse Assessment & Plan: Alcohol level on admission was 344 Continue Ativan taper for withdrawal symptoms Continue Ativan 2mg IVP Q8h PRN Thiamine 100mg IM Daily Folic acid 1mg PO Daily MV PO daily Monitor for withdrawal symptoms. Status: Acute (3) History of loop recorder Assessment & Plan: - Loop recorder interrogated 01/08/17- no abnormal cardiac activity (4) Prophylactic measure Assessment & Plan: Heparin 5000U SC Q12h Protonix 40mg PO Daily SCDs Status: Acute (5) Abdominal Pain Assessment & Plan: Patient likely withdrawing with associated nausea and vomiting. Seizure precautions Aspiration precautions Zofran IVP PRN added Ativan taper added continue Ativan PRN Lipase WNL C diff negative (6) Anemia Assessment & Plan: Hgb 7.3 today repeat CBC f/u B12, folate, iron studies, stool occult All Medical management as per Dr. Rosen
[2017-01-13] MEDS: Thiamine 100 mg/ml Inj IM SCH (11:00)
[2017-01-13 12:41] LABS: FECAL LEUKOCYTES NEGATIVE (NEGATIVE)
[2017-01-13 14:02] LABS: BASO % 0.5 % (0.0-2.0); EOS # 0.1 K/uL (0.0-0.7); EOS % 2.5 % (0.0-4.0); HEMATOCRIT 23.1 % (35.0-51.0); LYMPH # 0.7 K/uL (1.0-4.3); LYMPH % 20.7 % (20.0-40.0); MEAN CELL VOLUME 93.7 fL (80.0-94.0); MEAN CORPUSCULAR HGB CONC 33.1 g/dL (33.0-37.0); MEAN PLATELET VOLUME 10.1 fL (7.2-11.7); MONO # 0.5 K/uL (0.0-0.8); MONO % 13.1 % (0.0-10.0); NRBC % 0.1 % (0.0-2.0); RED CELL DISTRIBUTION WIDTH 15.8 % (11.5-14.5); WHITE BLOOD COUNT 3.6 K/uL (4.8-10.8)
[2017-01-14 08:05] LABS: BASO % 0.4 % (0.0-2.0); EOS # 0.1 K/uL (0.0-0.7); EOS % 2.2 % (0.0-4.0); HEMATOCRIT 26.3 % (35.0-51.0); LYMPH % 20.9 % (20.0-40.0); MEAN CELL VOLUME 92.4 fL (80.0-94.0); MEAN CORPUSCULAR HEMOGLOBIN 30.3 pg (27.0-31.0); MEAN CORPUSCULAR HGB CONC 32.8 g/dL (33.0-37.0); MEAN PLATELET VOLUME 10.2 fL (7.2-11.7); MONO # 0.8 K/uL (0.0-0.8); MONO % 16.2 % (0.0-10.0); NRBC % 0.1 % (0.0-2.0); RED CELL DISTRIBUTION WIDTH 16.1 % (11.5-14.5); WHITE BLOOD COUNT 4.8 K/uL (4.8-10.8)
[2017-01-14 08:13] LABS: CHLORIDE 97 mmol/L (98-107); POTASSIUM 3.4 mmol/L (3.6-5.2); SODIUM 136 mmol/L (132-148)
[2017-01-14 08:15] LABS: ALB/GLOB RATIO 1.3 (1.0-2.1); AST/SGOT 86 U/L (17-59); BILIRUBIN,TOTAL 0.9 mg/dL (0.2-1.3); CARBON DIOXIDE 26 mmol/L (22-30); GFR AFRICAN-AMERICAN > 60
[2017-01-14 08:16] LABS: ALKALINE PHOSPHATASE 61 U/L (38-126); ALT/SGPT 50 U/L (21-72); BLOOD UREA NITROGEN 15 mg/dL (9-20); CALCIUM 8.4 mg/dl (8.6-10.4); GLUCOSE,RANDOM 99 mg/dL (75-110); MAGNESIUM 1.1 mg/dL (1.6-2.3); PHOSPHOROUS 3.7 mg/dL (2.5-4.5)
[2017-01-14 08:17] LABS: IRON 75 ug/dL (49-181)
[2017-01-14] MEDS ORDERED: Potassium Chloride 20 mEq ER Tab PO ONE (08:49)
--- NOTE | 2017-01-14 08:53 | CP.PCM.PN ---
Subjective - Date & Time of Evaluation Date of Evaluation: 01/14/17 Time of Evaluation: 09:25 - Subjective Subjective: Medicine Note- Dr. Rosen's service Patient was seen and examined at bedside. Patient reports no vomiting overnight , but still has abdominal pain. He denies any blood in previous vomiting or any dark or bloody bowel movements. No events overnight, per nursing. Objective - Vital Signs/Intake and Output Vital Signs (last 24 hours): Temp Pulse Resp BP Pulse Ox 98 F 61 20 158/84 H 98 01/14/17 00:00 01/14/17 00:46 01/14/17 00:00 01/14/17 00:00 01/14/17 00:00 Intake and Output: 01/14/17 01/14/17 06:59 18:59 Intake Total 60 Balance 60 - Medications Medications: Current Medications Fludrocortisone Acetate (Florinef) 0.1 mg PO DAILY [facility] Last Admin: 01/13/17 09:05 Dose: 0.1 mg Folic Acid (Folic Acid) 1 mg PO DAILY [facility] Last Admin: 01/13/17 09:04 Dose: 1 mg Hydromorphone HCl (Dilaudid) 2 mg IVP Q4H PRN PRN Reason: pain Last Admin: 01/14/17 06:59 Dose: 2 mg Loperamide HCl (Imodium) 2 mg PO Q8H PRN PRN Reason: diarrhea Last Admin: 01/14/17 07:03 Dose: 2 mg Lorazepam (Ativan) 2 mg IVP Q8 PRN PRN Reason: Anxiety/ Tremors Last Admin: 01/09/17 02:33 Dose: 2 mg Lorazepam (Ativan) 1 mg IVP DAILY [facility] PRN Reason: Taper Stop: 01/14/17 09:59 Last Admin: 01/13/17 11:00 Dose: 1 mg Multivitamins (Hexavitamin) 1 tab PO DAILY [facility] Last Admin: 01/13/17 09:04 Dose: 1 tab Ondansetron HCl (Zofran Inj) 4 mg IVP Q6H PRN PRN Reason: Nausea/Vomiting Last Admin: 01/09/17 21:35 Dose: 4 mg Pantoprazole Sodium (Protonix Ec Tab) 40 mg PO DAILY [facility] Last Admin: 01/13/17 09:04 Dose: 40 mg Potassium Chloride (K-Dur 20 Meq Er Tab) 40 meq PO ONCE ONE Stop: 01/14/17 08:50 Thiamine HCl (Vitamin B1 Inj) 100 mg IM DAILY [facility] Last Admin: 01/13/17 11:00 Dose: 100 mg - Labs Labs: 01/14/17 07:57 01/14/17 07:57 - Constitutional Appears: Non-toxic, No Acute Distress - Head Exam Head Exam: ATRAUMATIC, NORMAL INSPECTION, NORMOCEPHALIC - Eye Exam Pupil Exam: NORMAL ACCOMODATION, PERRL - ENT Exam ENT Exam: Mucous Membranes Moist - Respiratory Exam Respiratory Exam: Clear to Ausculation Bilateral, NORMAL BREATHING PATTERN. absent: Prolonged Expiratory Phase, Rales, Rhonchi, Wheezes - Cardiovascular Exam Cardiovascular Exam: REGULAR RHYTHM, +S1, +S2 - GI/Abdominal Exam GI & Abdominal Exam: Soft, Tenderness, Normal Bowel Sounds. absent: Diminished Bowel Sounds, Hypoactive Bowel Sounds - Extremities Exam Extremities Exam: Normal Capillary Refill, Normal Inspection - Neurological Exam Neurological Exam: Alert, Awake, Oriented x3 - Psychiatric Exam Psychiatric exam: Normal Affect, Normal Mood - Skin Skin Exam: Dry, Intact, Normal Color, Warm Assessment and Plan (1) Syncope Status: Acute (2) Alcohol abuse Status: Acute (3) Prophylactic measure Status: Acute - Assessment and Plan (Free Text) Assessment: (1) Syncope Assessment & Plan: Consult Cardio- Dr. Zimmerman Last echo- 12/16/16- Mild concentric LVH, Normal LV systolic dysfunction, EF >70% , LA borderline dilated, Grade I abnormal relation pattern EKG- 01/07/17- No change from previou Alcohol level on admission was 344 Carotid Doppler on 12/16/16- normal 12/16/16 Echo- 76% LVEF As per cardio: Likely 2/2 to orthostasis orthostatic vital signs ordered QAM Florinef 0.1mg PO daily added Status: Acute (2) Alcohol abuse Assessment & Plan: Alcohol level on admission was 344 Continue Ativan taper for withdrawal symptoms Continue Ativan 2mg IVP Q8h PRN Thiamine 100mg IM Daily Folic acid 1mg PO Daily MV PO daily Monitor for withdrawal symptoms. Status: Acute (3) History of loop recorder Assessment & Plan: - Loop recorder interrogated 01/08/17- no abnormal cardiac activity (4) Prophylactic measure Assessment & Plan: Heparin 5000U SC Q12h Protonix 40mg PO Daily SCDs Status: Acute (5) Abdominal Pain Assessment & Plan: Patient likely withdrawing with associated nausea and vomiting. Seizure precautions Aspiration precautions Zofran IVP PRN added Ativan taper added continue Ativan PRN Lipase WNL C diff negative (6) Anemia Assessment & Plan: s/p 1U PRBC on 01/13/17 Hgb 8.6 Stool occult positive NPO except meds consult GI- Dr. Valencia f/u B12, folate, iron studies Stool occult positive All Medical management as per Dr. Rosen
[2017-01-14 09:22] LABS: FOLATE > 20.0 ng/mL
[2017-01-14] MEDS: Pantoprazole 40 mg EC Tab PO SCH (09:29)
[2017-01-14] MEDS: Multiple Vitamins Tab PO SCH (09:30)
[2017-01-14] MEDS ORDERED: Phytonadione 10 mg/ml Inj (Adult) SC STA (11:06)
[2017-01-14] MEDS ORDERED: Potassium Chloride 20 mEq/15 ml LIQ UD PO ONE (11:45)
--- NOTE | 2017-01-14 11:47 | PN ---
DATE: 01/13/2017 LOCATION: 564, bed B. This is a 61-year-old male seen and examined for GI consultation on 01/13/2017 as requested by the adm barb [place], being examined again today with a complaint of periods of rectal bleeding on and off, rece ived 3 units of blood transfusion and still has guaiac positive stool. Most recent lab results, current and previous medication lists, current and the previous medical even ts were reviewed and the patient still has low hemoglobin 8.6, low hematocrit 26.3 with thrombocytope beryl of 111 with low potassium 3.4, low calcium 8.4 with low magnesium 1.1, but mildly elevated AST du e to his alcohol intake. PHYSICAL EXAMINATION: GENERAL: A 61-year-old male, awake, alert, oriented, afebrile with pulse of 66, respiratory rate 20- 22, blood pressure 130/94. HEENT: Showed pale, dry mucoid membrane. Nonicteric sclerae. LUNGS: Few scattered crepitations. Decreased air entry at bases. HEART: Positive S1 and S2. ABDOMEN: Soft. Bowel sounds are present with slight generalized tenderness. No mass or organomegal y. No rebound tenderness or guarding. RECTAL: The patient refused. EXTREMITIES: Lower extremity edematous changes. No clubbing or cyanosis. NEUROLOGIC: No new reported neurological deficit, sensory or motor. IMPRESSION: 1. Gastrointestinal bleeding, upper versus lower. 2. Anemia secondary to above. 3. Known history of hypertension, recurrent pancreatitis, alcohol-induced, depression, osteoarthriti s, seizure disorder. 4. Electrolyte imbalance with hypomagnesemia, hypocalcemia, and hypokalemia. 5. Alcoholism by history. SUGGESTION: 1. Agree with your plan. 2. The patient to be scheduled for colonoscopy at a.m. after adequate preparation. 3. Vitamin K. FURTHER RECOMMENDATIONS: To follow post-preparation and postop colonoscopy. The patient may need al so upper endoscopy. Valentin Valencia MD cc: 14 TT: 01/14/2017 11:47:32 Confirmation # [id number] Dictation # [id number] farhat
[2017-01-14] MEDS: Thiamine 100 mg/ml Inj IM SCH (11:52)
[2017-01-14] MEDS ORDERED: Bisacodyl 5mg EC Tab PO ONE (13:00)
[2017-01-15 06:05] LABS: BASO % 0.5 % (0.0-2.0); EOS # 0.1 K/uL (0.0-0.7); EOS % 3.3 % (0.0-4.0); HEMATOCRIT 25.9 % (35.0-51.0); LYMPH # 1.1 K/uL (1.0-4.3); LYMPH % 25.5 % (20.0-40.0); MEAN CELL VOLUME 93.7 fL (80.0-94.0); MEAN CORPUSCULAR HEMOGLOBIN 30.6 pg (27.0-31.0); MEAN CORPUSCULAR HGB CONC 32.7 g/dL (33.0-37.0); MEAN PLATELET VOLUME 11.2 fL (7.2-11.7); MONO # 0.9 K/uL (0.0-0.8); MONO % 20.5 % (0.0-10.0); NRBC % 0.1 % (0.0-2.0); PLATELET COUNT 79 K/uL (130-400); RED CELL DISTRIBUTION WIDTH 16.5 % (11.5-14.5); WHITE BLOOD COUNT 4.4 K/uL (4.8-10.8)
[2017-01-15 06:22] LABS: CHLORIDE 103 mmol/L (98-107)
[2017-01-15 06:23] LABS: SODIUM 138 mmol/L (132-148)
[2017-01-15 06:25] LABS: ALB/GLOB RATIO 1.3 (1.0-2.1); ALKALINE PHOSPHATASE 49 U/L (38-126); AST/SGOT 81 U/L (17-59); BILIRUBIN,TOTAL 0.3 mg/dL (0.2-1.3); BLOOD UREA NITROGEN 13 mg/dL (9-20); CARBON DIOXIDE 23 mmol/L (22-30); GFR AFRICAN-AMERICAN > 60; TOTAL PROTEIN 6.6 g/dL (6.3-8.3)
[2017-01-15 06:26] LABS: ALT/SGPT 52 U/L (21-72); GLUCOSE,RANDOM 94 mg/dL (75-110); MAGNESIUM 1.5 mg/dL (1.6-2.3); PHOSPHOROUS 3.1 mg/dL (2.5-4.5)
[2017-01-15 09:03] LABS: EOSINOPHIL 4 % (0-4); NEUTROPHIL 55 % (50-75); TOTAL CELLS COUNTED 100
[2017-01-15 09:05] LABS: PLATELET CLUMPS PRESENT
--- NOTE | 2017-01-15 09:11 | CP.PCM.PN ---
Subjective - Date & Time of Evaluation Date of Evaluation: 01/15/17 Time of Evaluation: 09:00 - Subjective Subjective: Medicine Note- Dr. Rosen's service Patient was seen and examined at bedside. Patient reports no acute complaints. Still has abdominal pain. Diarrhea from colonoscopy prep. No events overnight. Objective - Vital Signs/Intake and Output Vital Signs (last 24 hours): Temp Pulse Resp BP Pulse Ox 97.8 F 60 18 112/77 95 01/14/17 23:38 01/14/17 23:38 01/14/17 23:38 01/14/17 23:38 01/14/17 23:38 Intake and Output: 01/15/17 01/15/17 06:59 18:59 Intake Total 0 Balance 0 - Medications Medications: Current Medications Fludrocortisone Acetate (Florinef) 0.1 mg PO DAILY [facility] Last Admin: 01/14/17 09:29 Dose: 0.1 mg Folic Acid (Folic Acid) 1 mg PO DAILY [facility] Last Admin: 01/14/17 09:29 Dose: 1 mg Loperamide HCl (Imodium) 2 mg PO Q8H PRN PRN Reason: diarrhea Last Admin: 01/14/17 07:03 Dose: 2 mg Metoclopramide HCl (Reglan) 5 mg IVP ACHS [facility] Last Admin: 01/15/17 06:41 Dose: 5 mg Morphine Sulfate (Morphine) 2 mg IVP Q4 PRN PRN Reason: Pain, severe (8-10) Multivitamins (Hexavitamin) 1 tab PO DAILY [facility] Last Admin: 01/14/17 09:30 Dose: 1 tab Ondansetron HCl (Zofran Inj) 4 mg IVP Q6H PRN PRN Reason: Nausea/Vomiting Last Admin: 01/09/17 21:35 Dose: 4 mg Pantoprazole Sodium (Protonix Ec Tab) 40 mg PO DAILY [facility] Last Admin: 01/14/17 09:29 Dose: 40 mg Thiamine HCl (Vitamin B1 Inj) 100 mg IM DAILY [facility] Last Admin: 01/14/17 11:52 Dose: 100 mg - Labs Labs: 01/15/17 05:58 01/15/17 05:58 - Constitutional Appears: Non-toxic, No Acute Distress - Head Exam Head Exam: ATRAUMATIC, NORMAL INSPECTION, NORMOCEPHALIC - Eye Exam Pupil Exam: NORMAL ACCOMODATION - ENT Exam ENT Exam: Mucous Membranes Moist - Respiratory Exam Respiratory Exam: Clear to Ausculation Bilateral, NORMAL BREATHING PATTERN. absent: Prolonged Expiratory Phase, Rales, Rhonchi, Wheezes - Cardiovascular Exam Cardiovascular Exam: REGULAR RHYTHM, +S1, +S2 - Extremities Exam Extremities Exam: Normal Capillary Refill, Normal Inspection - Neurological Exam Neurological Exam: Alert, Awake, Oriented x3 - Psychiatric Exam Psychiatric exam: Normal Affect, Normal Mood - Skin Skin Exam: Dry, Intact, Normal Color, Warm Assessment and Plan (1) Syncope Status: Acute (2) Alcohol abuse Status: Acute (3) Prophylactic measure Status: Acute - Assessment and Plan (Free Text) Assessment: (1) Syncope Assessment & Plan: Consult Cardio- Dr. Zimmerman Last echo- 12/16/16- Mild concentric LVH, Normal LV systolic dysfunction, EF >70% , LA borderline dilated, Grade I abnormal relation pattern EKG- 01/07/17- No change from previou Alcohol level on admission was 344 Carotid Doppler on 12/16/16- normal 12/16/16 Echo- 76% LVEF As per cardio: Likely 2/2 to orthostasis orthostatic vital signs ordered QAM Florinef 0.1mg PO daily added Status: Acute (2) Alcohol abuse Assessment & Plan: Alcohol level on admission was 344 Continue Ativan taper for withdrawal symptoms Continue Ativan 2mg IVP Q8h PRN Thiamine 100mg IM Daily Folic acid 1mg PO Daily MV PO daily Monitor for withdrawal symptoms. Status: Acute (3) History of loop recorder Assessment & Plan: - Loop recorder interrogated 01/08/17- no abnormal cardiac activity (4) Prophylactic measure Assessment & Plan: Thrombocytopenic Protonix 40mg PO Daily SCDs Status: Acute (5) Abdominal Pain Assessment & Plan: Patient likely withdrawing with associated nausea and vomiting. Seizure precautions Aspiration precautions Zofran IVP PRN added Ativan taper added continue Ativan PRN Lipase WNL C diff negative (6) Anemia Assessment & Plan: s/p 1U PRBC on 01/13/17 Hgb 8.4 Stool occult positive NPO except meds consult GI- Dr. Valencia f/u B12, folate, iron studies Stool occult positive Scheduled for Colonoscopy today All Medical management as per Dr. Rosen
[2017-01-15] MEDS: Multiple Vitamins Tab PO SCH (09:54)
[2017-01-15] MEDS: Thiamine 100 mg/ml Inj IM SCH (09:54)
[2017-01-15] MEDS: Pantoprazole 40 mg EC Tab PO SCH (09:54)
[2017-01-15] MEDS ORDERED: Propofol 10 mg/ml Inj (20 ML) ONE (14:46)
[2017-01-15] MEDS ORDERED: Lactated Ringer's 500 ML IV ONE (15:00)
[2017-01-15] MEDS ORDERED: Phytonadione 10 mg/ml Inj (Adult) SC ONE (15:45)
[2017-01-15] MEDS ORDERED: Magnesium Citrate Oral SOL (300 ml) PO ONE (15:45)
[2017-01-15] MEDS ORDERED: Bisacodyl 5mg EC Tab PO ONE (18:00)
[2017-01-16 08:56] LABS: BASO % 0.7 % (0.0-2.0); EOS # 0.1 K/uL (0.0-0.7); EOS % 2.2 % (0.0-4.0); HEMATOCRIT 28.1 % (35.0-51.0); LYMPH # 0.7 K/uL (1.0-4.3); MEAN CELL VOLUME 92.5 fL (80.0-94.0); MEAN CORPUSCULAR HEMOGLOBIN 30.5 pg (27.0-31.0); MEAN CORPUSCULAR HGB CONC 32.9 g/dL (33.0-37.0); MEAN PLATELET VOLUME 9.4 fL (7.2-11.7); MONO # 0.8 K/uL (0.0-0.8); MONO % 18.6 % (0.0-10.0); NRBC % 0.1 % (0.0-2.0); RED CELL DISTRIBUTION WIDTH 16.2 % (11.5-14.5); WHITE BLOOD COUNT 4.4 K/uL (4.8-10.8)
[2017-01-16 09:35] LABS: CHLORIDE 101 mmol/L (98-107); POTASSIUM 3.5 mmol/L (3.6-5.2); SODIUM 138 mmol/L (132-148)
[2017-01-16 09:37] LABS: ALB/GLOB RATIO 1.3 (1.0-2.1); ALKALINE PHOSPHATASE 58 U/L (38-126); AST/SGOT 60 U/L (17-59); BILIRUBIN,TOTAL 0.4 mg/dL (0.2-1.3); CARBON DIOXIDE 24 mmol/L (22-30); GFR AFRICAN-AMERICAN > 60; TOTAL PROTEIN 6.8 g/dL (6.3-8.3)
[2017-01-16 09:38] LABS: ALT/SGPT 44 U/L (21-72); BLOOD UREA NITROGEN 10 mg/dL (9-20); CALCIUM 8.6 mg/dl (8.6-10.4); GLUCOSE,RANDOM 95 mg/dL (75-110); MAGNESIUM 1.5 mg/dL (1.6-2.3)
[2017-01-16] MEDS ORDERED: Potassium Chloride 20 mEq ER Tab PO ONE (10:39)
[2017-01-16] MEDS: Pantoprazole 40 mg EC Tab PO SCH (10:39)
[2017-01-16] MEDS: Multiple Vitamins Tab PO SCH (10:39)
--- NOTE | 2017-01-16 10:43 | CP.PCM.PN ---
Subjective - Date & Time of Evaluation Date of Evaluation: 01/16/17 Time of Evaluation: 09:30 - Subjective Subjective: Medicine Progress Note- Dr. Rosen's Service: Patient seen and examined at bedside this AM. Patient has no complaints this Am and would like to go home. No acute events overnight as per nursing. Discharge planning as per Dr. Rosen. Objective - Vital Signs/Intake and Output Vital Signs (last 24 hours): Temp Pulse Resp BP Pulse Ox 98.1 F 68 20 128/80 98 01/16/17 08:29 01/16/17 08:29 01/16/17 08:29 01/16/17 08:29 01/16/17 08:29 Intake and Output: 01/16/17 01/16/17 06:59 18:59 Intake Total 700 Balance 700 - Medications Medications: Current Medications Fludrocortisone Acetate (Florinef) 0.1 mg PO DAILY [facility] Last Admin: 01/16/17 10:39 Dose: Not Given Folic Acid (Folic Acid) 1 mg PO DAILY [facility] Last Admin: 01/16/17 10:39 Dose: Not Given Loperamide HCl (Imodium) 2 mg PO Q8H PRN PRN Reason: diarrhea Last Admin: 01/14/17 07:03 Dose: 2 mg Metoclopramide HCl (Reglan) 5 mg IVP ACHS [facility] Last Admin: 01/16/17 07:12 Dose: 5 mg Morphine Sulfate (Morphine) 2 mg IVP Q4 PRN PRN Reason: Pain, severe (8-10) Last Admin: 01/16/17 09:19 Dose: 2 mg Multivitamins (Hexavitamin) 1 tab PO DAILY [facility] Last Admin: 01/16/17 10:39 Dose: Not Given Ondansetron HCl (Zofran Inj) 4 mg IVP Q6H PRN PRN Reason: Nausea/Vomiting Last Admin: 01/09/17 21:35 Dose: 4 mg Pantoprazole Sodium (Protonix Ec Tab) 40 mg PO DAILY [facility] Last Admin: 01/16/17 10:39 Dose: Not Given Thiamine HCl (Vitamin B1 Inj) 100 mg IM DAILY [facility] Last Admin: 01/15/17 09:54 Dose: Not Given - Labs Labs: 01/16/17 08:48 01/16/17 08:48 - Constitutional Appears: No Acute Distress, Cachectic, Chronically Ill - Head Exam Head Exam: NORMAL INSPECTION, NORMOCEPHALIC - Eye Exam Eye Exam: EOMI, Normal appearance - ENT Exam ENT Exam: Mucous Membranes Moist - Neck Exam Neck Exam: Full ROM, Normal Inspection - Respiratory Exam Respiratory Exam: Clear to Ausculation Bilateral, NORMAL BREATHING PATTERN - Cardiovascular Exam Cardiovascular Exam: REGULAR RHYTHM, +S1, +S2 - GI/Abdominal Exam GI & Abdominal Exam: Soft. absent: Distended, Tenderness - Extremities Exam Extremities Exam: Full ROM, Normal Inspection - Neurological Exam Neurological Exam: Alert, Oriented x3 - Psychiatric Exam Psychiatric exam: Normal Affect, Normal Mood - Skin Skin Exam: Normal Color, Warm Assessment and Plan - Assessment and Plan (Free Text) Assessment: (1) Syncope Assessment & Plan: Consult Cardio- Dr. Zimmerman Last echo- 12/16/16- Mild concentric LVH, Normal LV systolic dysfunction, EF >70% , LA borderline dilated, Grade I abnormal relation pattern EKG- 01/07/17- No change from previou Alcohol level on admission was 344 Carotid Doppler on 12/16/16- normal 12/16/16 Echo- 76% LVEF As per cardio: Likely 2/2 to orthostasis orthostatic vital signs ordered QAM Florinef 0.1mg PO daily added Status: Acute (2) Alcohol abuse Assessment & Plan: Alcohol level on admission was 344 Continue Ativan taper for withdrawal symptoms Continue Ativan 2mg IVP Q8h PRN Thiamine 100mg IM Daily Folic acid 1mg PO Daily MV PO daily Monitor for withdrawal symptoms. Status: Acute (3) History of loop recorder Assessment & Plan: - Loop recorder interrogated 01/08/17- no abnormal cardiac activity (4) Abdominal Pain Assessment & Plan: Seizure precautions Aspiration precautions Zofran IVP PRN added Ativan taper completed continue Ativan PRN Lipase WNL C diff negative (5) Anemia Assessment & Plan: s/p 1U PRBC on 01/13/17 Hgb 8.4 B12, folate, iron studies WNL Stool occult positive consult GI- Dr. Valencia Colonoscopy showed colitis, spastic colon and internal hemorroids. (6) Prophylactic measure Assessment & Plan: Thrombocytopenic Protonix 40mg PO Daily SCDs Status: Acute All Medical management as per Dr. Rosen
[2017-01-16] MEDS ORDERED: Propofol 10 mg/ml Inj (20 ML) ONE (12:39)
[2017-01-16] MEDS ORDERED: Midazolam 2 MG/2 ML VIAL ONE (12:39)
[2017-01-16 13:20] VITALS: TEMP 97; O2SAT 100
[2017-01-16] MEDS: Thiamine 100 mg/ml Inj IM SCH (13:26)
[2017-01-16 13:40] VITALS: BP 121/76; PULSE 78; RESP 12
--- NOTE | 2017-01-18 08:50 | CON ---
DATE: 01/13/[address] Valentin Valencia to Dr. Familia Harris. I was called for GI consultation by the primary MD. The patient is seen and fully examined on as requested by the admitting medical team as well as the admitting MD. The entire chart is revi ewed, including but not limited to, the most recent lab and radiology study results, current and prev ious medication lists, current and previous medical events, allergy to medication list as well as all the available current and previous medical records. Case discussed at length with the admitting MD. This is a 61-year-old male who was admitted to the hospital through the Emergency Room with a main co mplaint of near syncopal episode with a known history of status post pacemaker insertion before. The patient has a known history of heavy alcohol intake including last drink the last night prior to his admission. The patient also experienced some mid epigastric and lower sternal chest pain, believed to be noncard iac. PAST MEDICAL HISTORY: Including, but not limited to: 1. Alcoholism. 2. Peptic ulcer disease. 3. Depression. 4. 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 5. Known history of hypertension, seizure disorder, and peripheral edema syndrome. CURRENT MEDICATIONS: Lists were reviewed. FAMILY HISTORY: Unknown. SOCIAL HISTORY: Positive for cigarette smoking, claimed he quit about 2 months ago, but still with e xcessive alcohol intake on daily basis. ALLERGY TO MEDICATION: Unknown. After being admitted to the hospital, patient was found to have guaiac positive stool with low hemogl obin of 10.2, low hematocrit 30.9 with low CO2 content of 20 indicative of metabolic acidosis with in creased BUN 23, but normal creatinine with low blood glucose level of 64. PHYSICAL EXAMINATION: GENERAL: A 61-year-old male. VITAL SIGNS: Afebrile with a pulse of 74, respiratory rate 20-22, blood pressure 130/74. HEENT: Showed pale, dry mucoid membrane with slightly bilateral sclerae. LYMPH NODES: No lymphadenitis or lymphadenopathy. LUNGS: Few scattered crepitations, decreased air entry bilaterally with few rhonchi. HEART: Positive S1 and S2. ABDOMEN: Soft with mild generalized tenderness. No mass or organomegaly. No rebound tenderness or guarding. RECTAL: Positive tone. Vault is empty, but reported guaiac positive stool. EXTREMITIES: With lower extremities mild edematous changes. No clubbing or cyanosis. NEUROLOGIC: No reported new neurological deficits, sensory or motor. IMPRESSION: 1. Syncopal episode, most likely alcohol induced. 2. Known history of alcoholism. 3. Chest pain, most likely noncardiac versus, less likely cardiac. 4. Anemia, to rule out gastrointestinal bleeding, upper versus lower. The patient reported episodes of rectal bleeding, even after he was admitted to the hospital. 5. To rule out occult gastrointestinal malignancy. 6. Known history of, but not limited to, hypertension, seizure disorder, alcohol-induced pancreatiti s, depression as well as peripheral edema syndrome with osteoarthritis. SUGGESTION: 1. Agree with your plan. 2. Proton pump inhibitors. 3. Cancer markers. 4. Thiamine. 5. Serum lipase, amylase level. 6. Ultrasound of the abdomen with attention to the biliary tree and pancreas. 7. Endoscopic evaluation of the gastrointestinal tract when the patient is more stable clinically. 8. Further recommendations to follow. Thank you for letting me participate in your patient's case management. Valentin Valencia MD cc: 14 TT: 01/18/2017 08:49:21 Confirmation # [id number] Dictation # [id number]
--- NOTE | 2017-02-16 08:43 | DS ---
The patient admitted to hospital with chief complaint of shortness of breath, weakness, fatigue and t iredness, generalized pain, syncope. The patient got bedrest, supportive care, IV fluids. The patie nt showed gradual improvement, discharged to follow up as outpatient. Familia Harris MD cc: [phone] TT: 02/14/2017 15:02:48 rn
== END 2017-01-16 14:48 | disposition home or self-care (01) | DRG 141 ==
LOC: C.ER 15:57 → C.9OBSV 16:30 → C.9E 17:41 → C.5T 22:28 → C.3T 01-08 22:08 → OBSVTOIN 01-09 17:21 → C.5T 01-11 18:50
PROVIDERS: ADMIT Internal Medicine Pulmonary Disease; ATTEND Internal Medicine Pulmonary Disease
PROC: 30253N1 (ICD-10-PCS; principal; 2017-01-13)
PROC: 0DCE8ZZ Extirpation of Matter from Large Intestine, Via Natural or Artificial Opening Endoscopic (ICD-10-PCS; 2017-01-15)
DX: R55 Syncope and collapse (principal); E87.2 Acidosis; D69.6 Thrombocytopenia, unspecified; K86.0 Alcohol-induced chronic pancreatitis; K92.2 Gastrointestinal hemorrhage, unspecified; F10.239 Alcohol dependence with withdrawal, unspecified; E87.6 Hypokalemia; D50.0 Iron deficiency anemia secondary to blood loss (chronic); K56.41 Fecal impaction; E83.42 Hypomagnesemia; I10 Essential (primary) hypertension; Z95.0 Presence of cardiac pacemaker; Y90.8 Blood alcohol level of 240 mg/100 ml or more; M17.0 Bilateral primary osteoarthritis of knee; J45.909 Unspecified asthma, uncomplicated; Z87.11 Personal history of peptic ulcer disease; G40.509 Epileptic seizures related to external causes, not intractable, without status epilepticus; F10.229 Alcohol dependence with intoxication, unspecified; E83.51 Hypocalcemia; F32.89 Other specified depressive episodes; K58.0 Irritable bowel syndrome with diarrhea

== ENCOUNTER 2017-01-22 14:42 | Emergency (ER) | payer MEDICAID, OTHER ==
[2017-01-22 14:56] VITALS: BMI 24.8
[2017-01-22] MEDS ORDERED: Bacitracin 500 Units/gm Oint Foilpak UD TOP ONE (15:17)
[2017-01-22] MEDS ORDERED: Bacitracin 500 Units/gm Oint Foilpak UD ONE ×2 (15:26→17:22)
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
[2017-01-22 17:03] VITALS: TEMP 98.9
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
[2017-01-22 19:46] VITALS: BP 124/72; PULSE 71; RESP 18; O2SAT 97
== END 2017-01-22 19:45 | disposition home or self-care (01) ==
LOC: SUPCPDRO 14:42 → C.ER 14:42
DX: S92.341A Displaced fracture of fourth metatarsal bone, right foot, initial encounter for closed fracture (principal); V03.90XA Pedestrian on foot injured in collision with car, pick-up truck or van, unspecified whether traffic or nontraffic accident, initial encounter; Y92.488 Other paved roadways as the place of occurrence of the external cause

== ENCOUNTER 2017-01-29 22:14 | Emergency (ER) | payer MEDICAID, OTHER ==
[2017-01-29 22:15] VITALS: BMI 24.8
[2017-01-29] MEDS ORDERED: Dextrose 50% SYRINGE Inj (50 ml) ONE (22:34)
[2017-01-29] MEDS ORDERED: Dextrose 50% SYRINGE Inj (50 ml) IV STA (22:38)
[2017-01-29 22:51] LABS: BASO % 0.8 % (0.0-2.0); EOS # 0.1 K/uL (0.0-0.7); EOS % 1.7 % (0.0-4.0); HEMATOCRIT 36.6 % (35.0-51.0); LYMPH # 1.6 K/uL (1.0-4.3); LYMPH % 34.7 % (20.0-40.0); MEAN CELL VOLUME 92.8 fL (80.0-94.0); MEAN CORPUSCULAR HEMOGLOBIN 30.5 pg (27.0-31.0); MEAN CORPUSCULAR HGB CONC 32.9 g/dL (33.0-37.0); MEAN PLATELET VOLUME 9.5 fL (7.2-11.7); MONO # 0.3 K/uL (0.0-0.8); NRBC % 0.1 % (0.0-2.0); RED CELL DISTRIBUTION WIDTH 15.5 % (11.5-14.5); WHITE BLOOD COUNT 4.6 K/uL (4.8-10.8)
[2017-01-29 22:56] LABS: SODIUM 142 mmol/L (132-148)
[2017-01-29 22:58] LABS: GFR AFRICAN-AMERICAN > 60
[2017-01-29 22:59] LABS: ALB/GLOB RATIO 1.3 (1.0-2.1); ALKALINE PHOSPHATASE 72 U/L (38-126); ALT/SGPT 31 U/L (21-72); AST/SGOT 104 U/L (17-59); BLOOD UREA NITROGEN 20 mg/dL (9-20); CARBON DIOXIDE 17 mmol/L (22-30); GLUCOSE,RANDOM 69 mg/dL (75-110); TOTAL PROTEIN 8.9 g/dL (6.3-8.3)
[2017-01-29] MEDS ORDERED: Dextrose 5%/0.9% NS 1,000 ML IV STA (23:03)
[2017-01-29 23:14] LABS: ALCOHOL SERUM 356 mg/dl (0-10)
[2017-01-29] MEDS ORDERED: Bacitracin 500 Units/gm Oint Foilpak UD ONE (23:59)
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
--- NOTE | 2017-01-30 01:43 | CT ---
EXAM: CT Cervical Spine Without Intravenous Contrast CLINICAL HISTORY: 61 years old, male; Pain; Neck pain; Additional info: Fall, head injury, intox TECHNIQUE: Axial computed tomography images of the cervical spine without intravenous contrast. This CT exam was performed using one or more of the following dose reduction techniques: automated exposure control, adjustment of the mA and/or kV according to patient size, and/or use of iterative reconstruction technique. Coronal and sagittal reformatted images were created and reviewed. EXAM DATE/TIME: 01/29/2017 11:02 PM COMPARISON: CT - CERVICAL SPINE W/O CONTRAST 12/13/2016 4:27:56 AM FINDINGS: Vertebrae: There is maintenance of the cervical lordosis. There is no prevertebral soft tissue swelling. There are no fractures. There are no acute alignment abnormalities. There are degenerative changes at all cervical levels. There is narrowing of the predental space. There is severe disc space narrowing C3-4, 45, C5-6 and C6-7, unchanged. There is minimal retrolisthesis C3 on C4, 4 and C5 and C5 on C6, unchanged. There is less severe disc space narrowing see C7/T1. There is mild loss of vertebral body height C3-C6, unchanged. There is endplate irregularity, unchanged. There is narrowing of multiple facet joints. Facet joints align anatomically.Spinous processes align in the expected fashion. Discs/spinal canal/neural foramina: See above. Soft tissues: See above. Thyroid: Thyroid is unremarkable. Lung apices: Lung apices are clear Other findings: Airway is unremarkable. IMPRESSION: No acute osseous abnormality, no fracture; extensive degenerative change, similar findings seen on prior study 12/13/69
[2017-01-30 06:50] VITALS: RESP 20
--- NOTE | 2017-01-30 08:14 | RAD ---
PROCEDURE: CHEST RADIOGRAPH, 1 VIEW HISTORY: SOB COMPARISON: Comparison is made to the previous study dated 01/07/2027 FINDINGS: LUNGS: Clear. PLEURA: No pneumothorax or pleural fluid seen. CARDIOVASCULAR: Normal. OSSEOUS STRUCTURES: No significant abnormalities. VISUALIZED UPPER ABDOMEN: Normal. OTHER FINDINGS: None. IMPRESSION: No active disease.
[2017-01-30 08:31] VITALS: PULSE 73; TEMP 97.5; O2SAT 100
[2017-01-30 08:56] VITALS: BP 106/68
[2017-01-30 16:15] LABS: CHLORIDE 91 mmol/L (98-107)
--- NOTE | 2017-01-30 17:06 | CARD ---
APPROVED REPORT EKG Measurement Heart [id number] MA [id number] <Conclusion> Sinus rhythm with 1st degree AV block Prolonged QT Abnormal ECG
== END 2017-01-30 09:14 | disposition home or self-care (01) ==
LOC: C.ER 22:14 → SUPCPDRO 22:14 → C.ER 01-30 09:14
DX: S01.01XA Laceration without foreign body of scalp, initial encounter (principal); W19.XXXA Unspecified fall, initial encounter; Y92.009 Unspecified place in unspecified non-institutional (private) residence as the place of occurrence of the external cause; F10.129 Alcohol abuse with intoxication, unspecified; Y90.8 Blood alcohol level of 240 mg/100 ml or more
CPT/HCPCS: 12002; 70450; 71010; 72125; 80053; 80320; 82948; 84484; 85025; 85610; 85730; 93005; 96374; 99285; J7042

== ENCOUNTER 2017-02-04 19:19 | Observation (INO) | payer MEDICAID ==
[2017-02-04 19:20] VITALS: BMI 24.8
[2017-02-04] MEDS ORDERED: Bacitracin 500 Units/gm Oint Foilpak UD ONE (19:55)
[2017-02-04] MEDS ORDERED: Bacitracin Ointment 30 GM TUBE TOP STA (20:00)
--- NOTE | 2017-02-04 20:35 | C.PDOC ---
History Of Present Illness The patient, a 61 y/o male, presents to the ED with alcohol intoxication for an unknown duration. Patient also reports chronic left hip pain. Patient was evaluated in ED on 01/29/17 and underwent placement of aliyah to his head. Otherwise, he denies fever, chills, headache, suicidal/homicidal ideation. Chief Complaint (Nursing): Substance Abuse History Per: Patient History/Exam Limitations: intoxication Onset/Duration Of Symptoms: Unknown Current Symptoms Are (Timing): Still Present Suicide/Self Injury Attempted (Context): None Modifying Factor(s): Alcohol Associated Symptoms: denies: Suicidal Thoughts, Suicidal Plan Involuntary Hold By: None Recent travel outside of the [place]: No Additional History Per: Patient Past Medical History Reviewed: Historical Data, Nursing Documentation, Vital Signs Vital Signs: Last Vital Signs Temp 97.0 F L 02/05/17 01:44 Pulse 74 02/05/17 01:44 Resp 16 02/05/17 01:44 BP 114/70 02/05/17 01:44 Pulse Ox 100 02/05/17 01:44 - Medical History PMH: Arthritis (B/L KNEE PAIN), Depression, Gastritis, HTN, Pancreatitis, Peripheral Edema, Seizures (April,) Denies: HIV, Kidney Stones, Chronic Kidney Disease, Sexually Transmitted Disease Surgical History: No Surg Hx - [facility] Procedures ALCOHOL DETOXIFICATION (05/03/13) DETOXIFICATION SERVICES FOR SUBSTANCE ABUSE TREATMENT (11/26/16) EXCISION OF DESCENDING COLON, ENDO, DIAGN (03/14/16) EXCISION OF STOMACH, ENDO, DIAGN (11/26/16) EXTIRPATION OF MATTER FROM LARGE INTESTINE, ENDO (01/09/17) GROUP PSYCHOTHERAPY (01/24/16) INSERT OF MONITOR DEV INTO CHEST SUBCU/FASCIA, OPEN APPROACH (12/18/16) MEASURE OF ARTERIAL PRESSURE, PERIPHERAL, CARDIAC CATHETERIZATION TECHNOLOGIST APPROACH (12/18/16) MEASUREMENT OF CARDIAC RHYTHM, EXTERNAL APPROACH (12/18/16) TRANSFUSE NONAUT RED BLOOD CELLS IN PERIPH ART, PERC (01/09/17) TRANSFUSE NONAUT RED BLOOD CELLS IN PERIPH VEIN, PERC (07/28/16) Family History: States: Unknown Family Hx - Social History Hx Tobacco Use: No (quit 2 months now) Hx Alcohol Use: Yes Hx Substance Use: No - Immunization History Hx Tetanus Toxoid Vaccination: No Hx Influenza Vaccination: No Hx Pneumococcal Vaccination: No Review Of Systems Except As Marked, All Systems Reviewed And Found Negative. Constitutional: Positive for: Other (+alcohol intoxication ). Negative for: Fever, Chills Musculoskeletal: Positive for: Other (+chronic left hip pain ) Neurological: Negative for: Headache Psych: Negative for: Suicidal ideation Physical Exam - Physical Exam Appears: No Acute Distress, Other (+visibly intoxicated ) Skin: Normal Color, Warm, Dry Head: Atraumatic, Normacephalic, No Tenderness, No Swelling, Other (right parietal area: suture line intact with no signs of infection ) Eye(s): bilateral: Normal Inspection, PERRL, EOMI Oral Mucosa: Moist Neck: Supple Chest: Symmetrical, No Deformity, No Tenderness Cardiovascular: Rhythm Regular, No Murmur Respiratory: Normal Breath Sounds, No Rales, No Rhonchi, No Wheezing Back: Normal Inspection, No Vertebral Tenderness, No Paraspinal Tenderness Extremity: Normal ROM, No Tenderness, Capillary Refill (less than 2 seconds ), No Deformity, No Swelling Neurological/Psych: Other (alert, conscious and arousable to touch and verbal stimuli ) Gait: Unsteady ED Course And Treatment O2 Sat by Pulse Oximetry: 98 (on RA) Pulse Ox Interpretation: Normal Progress Note: 10 aliyah removed from right parietal region. Patient tolerated well with no complications. Bacitracin TOP applied to area. Disposition Counseled Patient/Family Regarding: Studies Performed - Disposition Disposition: HOME/ ROUTINE Disposition Time: 05:22 Condition: STABLE - POA Present On Arrival: None - Clinical Impression Clinical Impression: Alcohol abuse, Hip pain, chronic - Scribe Statement The provider has reviewed the documentation as recorded by the Scribe (Janna Silveira) Provider Attestation: All medical record entries made by the Scribe were at my direction and personally dictated by me. I have reviewed the chart and agree that the record accurately reflects my personal performance of the history, physical exam, medical decision making, and the department course for this patient. I have also personally directed, reviewed, and agree with the discharge instructions and disposition.
[2017-02-05 12:40] VITALS: BP 102/60; PULSE 89; RESP 16; TEMP 98.2; O2SAT 99
== END 2017-02-05 05:17 | disposition home or self-care (01) ==
LOC: SUPCPDRO 19:19 → C.ER 19:19 → C.9OBSV 02-05 00:02
PROVIDERS: ADMIT Emergency Medicine; ATTEND Emergency Medicine
DX: F10.229 Alcohol dependence with intoxication, unspecified (principal); F32.9 Major depressive disorder, single episode, unspecified; I10 Essential (primary) hypertension; R56.9 Unspecified convulsions
CPT/HCPCS: 82948; 96372; 99285; G0378; J1885

== ENCOUNTER 2017-02-06 15:13 | Emergency (ER) | payer MEDICAID ==
[2017-02-06 15:13] VITALS: BMI 24.8
[2017-02-06 16:10] VITALS: O2SAT 100
--- NOTE | 2017-02-06 18:18 | C.PDOC ---
History Of Present Illness 61 y/o male, history of alcoholism, presents to emergency department with multiple complaint. Patient is a poor historian. Not answering any questions. Chief Complaint (Nursing): Chest Pain History Per: Patient History/Exam Limitations: other (poor historian) Past Medical History Reviewed: Historical Data, Nursing Documentation, Vital Signs Vital Signs: Last Vital Signs Temp 97.9 F 02/06/17 19:57 Pulse 75 02/06/17 19:57 Resp 16 02/06/17 19:57 BP 108/61 02/06/17 19:57 Pulse Ox 100 02/06/17 19:57 - Medical History PMH: Arthritis (B/L KNEE PAIN), Depression, Gastritis, HTN, Pancreatitis, Peripheral Edema, Seizures (April,) Surgical History: - [facility] Procedures ALCOHOL DETOXIFICATION (05/03/13) DETOXIFICATION SERVICES FOR SUBSTANCE ABUSE TREATMENT (11/26/16) EXCISION OF DESCENDING COLON, ENDO, DIAGN (03/14/16) EXCISION OF STOMACH, ENDO, DIAGN (11/26/16) EXTIRPATION OF MATTER FROM LARGE INTESTINE, ENDO (01/09/17) GROUP PSYCHOTHERAPY (01/24/16) INSERT OF MONITOR DEV INTO CHEST SUBCU/FASCIA, OPEN APPROACH (12/18/16) MEASURE OF ARTERIAL PRESSURE, PERIPHERAL, FAMILY SUPPORT SPECIALIST APPROACH (12/18/16) MEASUREMENT OF CARDIAC RHYTHM, EXTERNAL APPROACH (12/18/16) TRANSFUSE NONAUT RED BLOOD CELLS IN PERIPH ART, PERC (01/09/17) TRANSFUSE NONAUT RED BLOOD CELLS IN PERIPH VEIN, PERC (07/28/16) Family History: States: Unknown Family Hx - Social History Hx Tobacco Use: No (quit 2 months now) Hx Alcohol Use: Yes Hx Substance Use: No - Immunization History Hx Tetanus Toxoid Vaccination: No Hx Influenza Vaccination: No Hx Pneumococcal Vaccination: No Review Of Systems Review Of Systems: ROS cannot be obtained secondary to pt's inabilty to answer questions. Physical Exam - Physical Exam Appears: Non-toxic, No Acute Distress Skin: Warm, Dry Head: Atraumatic, Normacephalic Oral Mucosa: Moist Chest: Symmetrical Cardiovascular: Rhythm Regular Respiratory: Normal Breath Sounds, No Rales, No Rhonchi, No Wheezing Gastrointestinal/Abdominal: Soft, No Tenderness, No Guarding, No Rebound Back: Normal Inspection Extremity: Normal ROM, Capillary Refill (< 2 sec.) Neurological/Psych: Oriented x3, Normal Speech, Normal Cognition ED Course And Treatment O2 Sat by Pulse Oximetry: 100 (RA) Pulse Ox Interpretation: Normal Disposition - Disposition Referrals: [facility] [Outside] [facility] [Outside] Disposition: HOME/ ROUTINE Disposition Time: 18:30 Condition: GOOD Additional Instructions: Thank you for letting us take care of you today. Your provider was Dr. Montesinos. You were treated for noncardiac chest pain. The emergency medical care you received today was directed at your acute symptoms. If you were prescribed any medication, please fill it and take as directed. It may take several days for your symptoms to resolve. Return to the Emergency Department if your symptoms worsen, do not improve, or if you have any other problems. Please contact your doctor or call one of the physicians/clinics you have been referred to that are listed on the Patient Visit Information form that is included in your discharge packet. Bring any paperwork you were given at discharge with you along with any medications you are taking to your follow up visit. Our treatment cannot replace ongoing medical care by a primary care provider (PCP) outside of the emergency department. [facility]. Follow up with your doctor in 2-3 for re-evaluation. Instructions: Noncardiac Chest Pain (ED) - Clinical Impression Clinical Impression: Non-cardiac chest pain - Scribe Statement The provider has reviewed the documentation as recorded by the Scribe Chandu Kim All medical record entries made by the Scribe were at my direction and personally dictated by me. I have reviewed the chart and agree that the record accurately reflects my personal performance of the history, physical exam, medical decision making, and the department course for this patient. I have also personally directed, reviewed, and agree with the discharge instructions and disposition.
[2017-02-06 20:01] VITALS: BP 108/61; PULSE 75; RESP 16; TEMP 97.9
--- NOTE | 2017-02-10 18:54 | CARD ---
APPROVED REPORT EKG Measurement Heart [id number] NM 240P82 [id number] <Conclusion> Sinus rhythm with 1st degree AV block Nonspecific T wave abnormality Abnormal ECG
--- NOTE | 2017-03-06 21:36 | CARD ---
APPROVED REPORT EKG Measurement Heart [id number] <Conclusion> Sinus rhythm with 1st degree AV block Otherwise normal ECG
== END 2017-02-06 22:40 | disposition home or self-care (01) ==
LOC: C.ER 15:13
DX: R07.89 Other chest pain (principal)

== ENCOUNTER 2017-03-06 17:39 | Observation (INO) | payer MEDICAID, OTHER ==
[2017-03-06 17:39] VITALS: BMI 24.8
[2017-03-06] MEDS ORDERED: Aspirin 325 mg EC Tablets PO STA (19:37)
[2017-03-06 20:07] LABS: HEMATOCRIT 28.1 % (35.0-51.0); LYMPH # 0.9 K/uL (1.0-4.3); MEAN CELL VOLUME 93.8 fL (80.0-94.0); MEAN CORPUSCULAR HGB CONC 33.1 g/dL (33.0-37.0); MEAN PLATELET VOLUME 8.1 fL (7.2-11.7); MONO # 0.2 K/uL (0.0-0.8); WHITE BLOOD COUNT 2.4 K/uL (4.8-10.8)
[2017-03-06] MEDS ORDERED: Aspirin 325 mg EC Tablets PO ONE (20:07)
[2017-03-06 20:12] LABS: BASO % 1.3 % (0.0-2.0); EOS % 1.7 % (0.0-4.0); LYMPH % 37.8 % (20.0-40.0); MONO % 9.4 % (0.0-10.0); NRBC % 0.1 % (0.0-2.0); RED CELL DISTRIBUTION WIDTH 18.6 % (11.5-14.5)
[2017-03-06 20:30] LABS: CHLORIDE 105 mmol/L (98-107); POTASSIUM 4.4 mmol/L (3.6-5.2); SODIUM 146 mmol/L (132-148)
[2017-03-06 20:32] LABS: ALB/GLOB RATIO 1.5 (1.0-2.1); ALKALINE PHOSPHATASE 78 U/L (38-126); AST/SGOT 181 U/L (17-59); BILIRUBIN,TOTAL 0.6 mg/dL (0.2-1.3); BLOOD UREA NITROGEN 13 mg/dL (9-20); CARBON DIOXIDE 24 mmol/L (22-30); GFR AFRICAN-AMERICAN > 60; TOTAL PROTEIN 7.5 g/dL (6.3-8.3)
[2017-03-06 20:33] LABS: ALT/SGPT 46 U/L (21-72); CALCIUM 8.4 mg/dl (8.6-10.4); GLUCOSE,RANDOM 83 mg/dL (75-110)
[2017-03-06 21:00] LABS: ALCOHOL SERUM 408 mg/dl (0-10)
--- NOTE | 2017-03-07 00:05 | C.PDOC ---
History Of Present Illness 61 year old male was brought to the ED by EMS after being found intoxicated in public and is well known in this ED for alcohol abuse. Patient claims to have fainted and denies any trauma or other complaints at this time. Time Seen by Provider: 03/06/17 19:30 Chief Complaint (Nursing): Chest Pain Past Medical History Reviewed: Historical Data, Nursing Documentation, Vital Signs Vital Signs: Last Vital Signs Temp 98.7 F 03/06/17 17:51 Pulse 72 03/06/17 20:08 Resp 12 03/06/17 20:08 BP 100/60 03/06/17 20:08 Pulse Ox 96 03/07/17 00:45 - Medical History PMH: Arthritis (B/L KNEE PAIN), Depression, Gastritis, HTN, Pancreatitis, Peripheral Edema, Seizures (April,) Surgical History: - [facility] Procedures ALCOHOL DETOXIFICATION (05/03/13) DETOXIFICATION SERVICES FOR SUBSTANCE ABUSE TREATMENT (11/26/16) EXCISION OF DESCENDING COLON, ENDO, DIAGN (03/14/16) EXCISION OF STOMACH, ENDO, DIAGN (11/26/16) EXTIRPATION OF MATTER FROM LARGE INTESTINE, ENDO (01/09/17) GROUP PSYCHOTHERAPY (01/24/16) INSERT OF MONITOR DEV INTO CHEST SUBCU/FASCIA, OPEN APPROACH (12/18/16) MEASURE OF ARTERIAL PRESSURE, PERIPHERAL, COFFEE BREWER APPROACH (12/18/16) MEASUREMENT OF CARDIAC RHYTHM, EXTERNAL APPROACH (12/18/16) TRANSFUSE NONAUT RED BLOOD CELLS IN PERIPH ART, PERC (01/09/17) TRANSFUSE NONAUT RED BLOOD CELLS IN PERIPH VEIN, PERC (07/28/16) Family History: States: Unknown Family Hx - Social History Hx Tobacco Use: No (quit 2 months now) Hx Alcohol Use: Yes Hx Substance Use: No - Immunization History Hx Tetanus Toxoid Vaccination: No Hx Influenza Vaccination: No Hx Pneumococcal Vaccination: No Review Of Systems Constitutional: Negative for: Fever, Chills, Sweats Cardiovascular: Negative for: Chest Pain, Palpitations Respiratory: Negative for: Cough, Shortness of Breath Gastrointestinal: Negative for: Nausea, Vomiting, Abdominal Pain, Diarrhea Psych: Negative for: Suicidal ideation Physical Exam - Physical Exam Appears: Non-toxic, No Acute Distress, Other (EtOH on breath ) Skin: Warm, Dry Head: Atraumatic Eye(s): bilateral: Normal Inspection Oral Mucosa: Moist Neck: Supple Chest: Symmetrical, No Deformity Cardiovascular: Rhythm Regular, Other (implantable arrythmia monitor in left chest ) Respiratory: No Rales, No Rhonchi, No Stridor, No Wheezing Gastrointestinal/Abdominal: Soft, No Tenderness, No Distention, No Guarding, No Rebound Extremity: Normal ROM, No Tenderness ED Course And Treatment - Laboratory Results Result Diagrams: 03/06/17 20:03 03/06/17 20:03 O2 Sat by Pulse Oximetry: 96 (room air ) Disposition - Disposition Disposition: HOME/ ROUTINE Disposition Time: 01:00 Condition: GOOD - Clinical Impression Clinical Impression: Alcohol abuse, Chest discomfort - Scribe Statement The provider has reviewed the documentation as recorded by the Scribe Mya Hussein All medical record entries made by the Agustinibe were at my direction and personally dictated by me. I have reviewed the chart and agree that the record accurately reflects my personal performance of the history, physical exam, medical decision making, and the department course for this patient. I have also personally directed, reviewed, and agree with the discharge instructions and disposition. Physician Patient Turnover Patient Signed Over To: Yoanna Hidalgo Handoff Comments: dispo in AM when sober
--- NOTE | 2017-03-07 00:44 | C.PDOC ---
Time Seen by Provider: 03/06/17 19:30 Chief Complaint (Nursing): Chest Pain Past Medical History Vital Signs: Last Vital Signs Temp 98.7 F 03/06/17 17:51 Pulse 72 03/06/17 20:08 Resp 12 03/06/17 20:08 BP 100/60 03/06/17 20:08 Pulse Ox 96 03/06/17 20:08 - Medical History PMH: Arthritis (B/L KNEE PAIN), Depression, Gastritis, HTN, Pancreatitis, Peripheral Edema, Seizures (April,) Denies: HIV, Kidney Stones, Chronic Kidney Disease, Sexually Transmitted Disease Surgical History: - [facility] Procedures ALCOHOL DETOXIFICATION (05/03/13) DETOXIFICATION SERVICES FOR SUBSTANCE ABUSE TREATMENT (11/26/16) EXCISION OF DESCENDING COLON, ENDO, DIAGN (03/14/16) EXCISION OF STOMACH, ENDO, DIAGN (11/26/16) EXTIRPATION OF MATTER FROM LARGE INTESTINE, ENDO (01/09/17) GROUP PSYCHOTHERAPY (01/24/16) INSERT OF MONITOR DEV INTO CHEST SUBCU/FASCIA, OPEN APPROACH (12/18/16) MEASURE OF ARTERIAL PRESSURE, PERIPHERAL, SPECIAL AGENT SECRET SERVICE APPROACH (12/18/16) MEASUREMENT OF CARDIAC RHYTHM, EXTERNAL APPROACH (12/18/16) TRANSFUSE NONAUT RED BLOOD CELLS IN PERIPH ART, PERC (01/09/17) TRANSFUSE NONAUT RED BLOOD CELLS IN PERIPH VEIN, PERC (07/28/16) Family History: States: Unknown Family Hx - Social History Hx Tobacco Use: No (quit 2 months now) Hx Alcohol Use: Yes Hx Substance Use: No - Immunization History Hx Tetanus Toxoid Vaccination: No Hx Influenza Vaccination: No Hx Pneumococcal Vaccination: No ED Course And Treatment - Laboratory Results Result Diagrams: 03/06/17 20:03 03/06/17 20:03 Lab Interpretation: Abnormal (trop neg, etoh 408H) ECG: Interpreted By Me ECG Rhythm: Sinus Rhythm ECG Interpretation: Normal Rate From EC O2 Sat by Pulse Oximetry: 96 Pulse Ox Interpretation: Normal - Radiology CXR: Interpreted by Me CXR Interpretation: Yes: No Acute Disease Reevaluation Time: 00:44 Reassessment Condition: Improved Medical Decision Making Medical Decision Making: alcohol abuse causing gait instability instead of acute cardiac issues ekg and trop nl dispo in AM when sober. Disposition Doctor Will See Patient In The: Office Counseled Patient/Family Regarding: Studies Performed, Diagnosis - Disposition Disposition: HOME/ ROUTINE Disposition Time: 00:45 Condition: GOOD - Clinical Impression Clinical Impression: Alcohol abuse
[2017-03-07 05:22] VITALS: O2SAT 99
[2017-03-07 07:00] VITALS: BP 161/81; PULSE 64; RESP 18; TEMP 98.1
--- NOTE | 2017-03-07 08:37 | RAD ---
PROCEDURE: CHEST RADIOGRAPH, 1 VIEW HISTORY: Shortness of breath COMPARISON: 01/29/2017 FINDINGS: LUNGS: Clear. PLEURA: No pneumothorax or pleural fluid seen. CARDIOVASCULAR: Normal. OSSEOUS STRUCTURES: No significant abnormalities. VISUALIZED UPPER ABDOMEN: Normal. OTHER FINDINGS: None. IMPRESSION: No active disease.
--- NOTE | 2017-03-09 14:26 | CARD ---
APPROVED REPORT EKG Measurement Heart [id number] AR 202P50 [id number] <Conclusion> Normal sinus rhythm Cannot rule out Anterior infarct, age undetermined Abnormal ECG
== END 2017-03-07 08:20 | disposition home or self-care (01) ==
LOC: C.ER 17:39 → C.9OBSV 22:38
PROVIDERS: ADMIT Emergency Medicine; ATTEND Emergency Medicine
DX: F10.120 Alcohol abuse with intoxication, uncomplicated (principal); I10 Essential (primary) hypertension; Y90.8 Blood alcohol level of 240 mg/100 ml or more
CPT/HCPCS: 36415; 71010; 80053; 80320; 83880; 84484; 85025; 93005; 99285; G0378

== ENCOUNTER 2017-03-19 18:35 | Inpatient (IN) | payer MEDICAID ==
[2017-03-19 18:47] VITALS: BMI 23.7
--- NOTE | 2017-03-19 19:50 | C.PDOC ---
History Of Present Illness 61 y/o male presents to ED with complaint of syncopal episode while walking in [facility] just prior to arrival. Patient has been admitted to the hospital and worked up for similar symptoms in the past, and seen by Dr. Zimmerman. Patient with history of implantable loop recorder. Patient states he drinks about a pint of vodka daily. Denies fever, chills, nausea, vomiting, chest pain , palpitations, shortness of breath, visual changes. Time Seen by Provider: 03/19/17 19:43 Chief Complaint (Nursing): Syncope History Per: Patient History/Exam Limitations: no limitations Onset/Duration Of Symptoms: Hrs Current Symptoms Are (Timing): Still Present Fall Associated With With Symptoms: Yes Recent travel outside of the [place]: No Past Medical History Reviewed: Historical Data, Nursing Documentation, Vital Signs Vital Signs: Last Vital Signs Temp 97.7 F 03/19/17 22:52 Pulse 58 L 03/20/17 03:35 Resp 18 03/20/17 03:35 BP 138/83 03/20/17 03:35 Pulse Ox 99 03/20/17 03:35 - Medical History PMH: Arthritis (B/L KNEE PAIN), Depression, Gastritis, HTN, Pancreatitis, Peripheral Edema, Seizures Surgical History: - [facility] Procedures ALCOHOL DETOXIFICATION (05/03/13) DETOXIFICATION SERVICES FOR SUBSTANCE ABUSE TREATMENT (11/26/16) EXCISION OF DESCENDING COLON, ENDO, DIAGN (03/14/16) EXCISION OF STOMACH, ENDO, DIAGN (11/26/16) EXTIRPATION OF MATTER FROM LARGE INTESTINE, ENDO (01/09/17) GROUP PSYCHOTHERAPY (01/24/16) INSERT OF MONITOR DEV INTO CHEST SUBCU/FASCIA, OPEN APPROACH (12/18/16) MEASURE OF ARTERIAL PRESSURE, PERIPHERAL, SMUTTER APPROACH (12/18/16) MEASUREMENT OF CARDIAC RHYTHM, EXTERNAL APPROACH (12/18/16) TRANSFUSE NONAUT RED BLOOD CELLS IN PERIPH ART, PERC (01/09/17) TRANSFUSE NONAUT RED BLOOD CELLS IN PERIPH VEIN, PERC (07/28/16) Family History: States: No Known Family Hx - Social History Hx Tobacco Use: No (quit 2 months now) Hx Alcohol Use: Yes Hx Substance Use: No - Immunization History Hx Tetanus Toxoid Vaccination: No Hx Influenza Vaccination: No Hx Pneumococcal Vaccination: No Review Of Systems Constitutional: Negative for: Fever, Chills Cardiovascular: Negative for: Chest Pain Respiratory: Negative for: Shortness of Breath Gastrointestinal: Negative for: Nausea, Vomiting, Abdominal Pain Skin: Positive for: Other (abrasion parietal scalp) Neurological: Positive for: Other (syncopal episode). Negative for: Weakness, Numbness, Headache, Dizziness Physical Exam - Physical Exam Appears: Non-toxic, No Acute Distress Skin: Warm, Dry Head: Normacephalic, Abrasion (small abrasion, right temporal parietal area) Eye(s): bilateral: PERRL, EOMI Chest: Symmetrical Cardiovascular: Rhythm Regular Respiratory: No Accessory Muscle Use, No Rales, No Rhonchi, No Wheezing Gastrointestinal/Abdominal: Soft, No Tenderness, No Guarding, No Rebound Extremity: Normal ROM, Capillary Refill (< 2 sec. ) Neurological/Psych: Oriented x3, Normal Speech, Normal Cognition ED Course And Treatment - Laboratory Results Result Diagrams: 03/19/17 20:08 03/19/17 20:08 ECG: Interpreted By Me, Viewed By Me ECG Rhythm: Sinus Rhythm (73), 1st Degree HB, Nonspecific Changes O2 Sat by Pulse Oximetry: 100 (RA) Pulse Ox Interpretation: Normal - Radiology CXR: Interpreted by Me, Viewed By Me CXR Interpretation: Yes: Other (unchanged from 03/06/17). No: Infiltrates, Fracture, Pnemothorax - CT Scan/US CT Head Other Rad Studies (CT/US): Radiology Report Reviewed CT/US Interpretation: IMPRESSION: 1. No acute findings in the brain. 2. Chronic left maxillary sinusitis. Progress Note: EKG, CxR, CT Head bloodwork, ordered. IVFs given. Disposition Discussed With : Familia Rosen Comment: accepted the pt on his servie and took over the care at 5:50 AM Doctor Will See Patient In The: Hospital Counseled Patient/Family Regarding: Studies Performed, Diagnosis, Need For Followup - Disposition Disposition: HOSPITALIZED Disposition Time: 19:50 Condition: FAIR - POA Present On Arrival: None - Clinical Impression Clinical Impression: Dizziness, Alcohol abuse, Alcohol intoxication, Syncope - Scribe Statement The provider has reviewed the documentation as recorded by the Scribe Provider Attestation: Chandu Kim All medical record entries made by the Scribe were at my direction and personally dictated by me. I have reviewed the chart and agree that the record accurately reflects my personal performance of the history, physical exam, medical decision making, and the department course for this patient. I have also personally directed, reviewed, and agree with the discharge instructions and disposition. Decision To Admit - Pt Status Changed To: Hospital Disposition Of: Observation - . Bed Request Type: Telemetry Admitting Physician: Familia Rosen Patient Diagnosis: Dizziness, Alcohol abuse, Alcohol intoxication, Syncope
[2017-03-19] MEDS ORDERED: Sodium Chloride 0.9% 1,000 ML IV ONE (19:54)
[2017-03-19 20:11] LABS: BASO % 1.5 % (0.0-2.0); EOS % 1.4 % (0.0-4.0); HEMATOCRIT 26.7 % (35.0-51.0); MEAN CELL VOLUME 95.2 fL (80.0-94.0); MEAN CORPUSCULAR HEMOGLOBIN 30.9 pg (27.0-31.0); MEAN CORPUSCULAR HGB CONC 32.4 g/dL (33.0-37.0); MEAN PLATELET VOLUME 8.8 fL (7.2-11.7); MONO # 0.5 K/uL (0.0-0.8); MONO % 15.2 % (0.0-10.0); NRBC % 0.1 % (0.0-2.0); RED CELL DISTRIBUTION WIDTH 19.3 % (11.5-14.5); WHITE BLOOD COUNT 3.1 K/uL (4.8-10.8)
[2017-03-19 20:20] LABS: CHLORIDE 103 mmol/L (98-107); SODIUM 146 mmol/L (132-148)
[2017-03-19 20:22] LABS: BILIRUBIN,TOTAL 0.5 mg/dL (0.2-1.3); GFR AFRICAN-AMERICAN > 60
[2017-03-19 20:23] LABS: ALB/GLOB RATIO 1.2 (1.0-2.1); ALKALINE PHOSPHATASE 75 U/L (38-126); ALT/SGPT 54 U/L (21-72); AST/SGOT 210 U/L (17-59); BLOOD UREA NITROGEN 14 mg/dL (9-20); CALCIUM 8.3 mg/dl (8.6-10.4); CARBON DIOXIDE 24 mmol/L (22-30); GLUCOSE,RANDOM 79 mg/dL (75-110); TOTAL PROTEIN 7.6 g/dL (6.3-8.3)
[2017-03-19] MEDS ORDERED: Sodium Chloride 0.9% 1,000 ML ONE (20:32)
[2017-03-19 20:43] LABS: ALCOHOL SERUM 444 mg/dl (0-10)
[2017-03-19 21:07] LABS: RBC URINE < 1 /hpf (0-3); URINE BACTERIA RARE (<OCC); URINE BILIRUBIN NEGATIVE (NEGATIVE); URINE BLOOD NEGATIVE (NEGATIVE); URINE COLOR Yellow (YELLOW); URINE GLUCOSE (UA) NORMAL (Normal); URINE KETONE NEGATIVE (NEGATIVE); URINE LEUKOCYTE ESTERASE NEG Leu/uL (Negative); URINE PROTEIN NEGATIVE (NEGATIVE); URINE UROBILINOGEN NORMAL mg/dL (0.2-1.0); WBC URINE 1 /hpf (0-5)
--- NOTE | 2017-03-19 21:28 | CT ---
EXAM: CT Head Without Intravenous Contrast CLINICAL HISTORY: 61 years old, male; Injury or trauma and signs and symptoms; Fall; Initial encounter; Abrasion; Forehead; Syncope and collapse; Additional info: Syncope, poss trauma TECHNIQUE: Axial computed tomography images of the head/brain without intravenous contrast. This CT exam was performed using one or more of the following dose reduction techniques: automated exposure control, adjustment of the mA and/or kV according to patient size, and/or use of iterative reconstruction technique. EXAM DATE/TIME: Exam ordered 03/19/2017 8:27 PM COMPARISON: CT - HEAD W/O CONTRAST 01/30/2017 12:35:52 AM FINDINGS: Brain: Basal ganglia calcifications are present. 2 low density foci are noted in the left sub-cortical white matter of the temporal lobe. These are stable and could represent a lacunar infarct or prominent perivascular space No hemorrhage. No edema. Ventricles: Unremarkable. No ventriculomegaly. Bones/joints: Unremarkable. No acute fracture. Soft tissues: Unremarkable. Sinuses: There is mucosal thickening noted within the left maxillary sinus. Mastoid air cells: Unremarkable as visualized. No mastoid effusion. IMPRESSION: 1. No acute findings in the brain. 2. Chronic left maxillary sinusitis.
[2017-03-20] MEDS ORDERED: Multivitamin (MVI) 10 ML, Thiamine 100 MG, Folic Acid 1 MG in Sodium Chloride 0.9% 1,00... IV ONE (05:57)
--- NOTE | 2017-03-20 07:23 | RAD ---
PROCEDURE: CHEST RADIOGRAPH, 1 VIEW HISTORY: chest pain COMPARISON: 03/06/2017 FINDINGS: LUNGS: No focal infiltrate or effusion. Small nodular density at the left lung base may represent vessel on end. PLEURA: No pneumothorax or pleural fluid seen. CARDIOVASCULAR: Normal. OSSEOUS STRUCTURES: No significant abnormalities. VISUALIZED UPPER ABDOMEN: Normal. OTHER FINDINGS: None. IMPRESSION: No focal infiltrate or effusion. Small nodular density at the left lung base may represent vessel on end.
[2017-03-20] MEDS: Dextrose 5%/0.45% NS 1,000 ML IV SCH ×2 (10:21→17:40)
--- NOTE | 2017-03-20 11:01 | CP.PCM.PN ---
Subjective - Date & Time of Evaluation Date of Evaluation: 03/20/17 Time of Evaluation: 10:56 - Subjective Subjective: PGY2 Medicine Note- Dr. Rosen's service Patient is a 61 year old male who presented to the ED with complaint of syncopal episode. Patient states that he was walking and suddenly felt that his legs gave out. Patient admits to recent alcohol use but states he was not drinking yesterday. Patient complains of abdominal pain currently but denies nausea and vomiting. Patient states he feels weak but denies feeling like he is withdrawing from alcohol. Objective - Vital Signs/Intake and Output Vital Signs (last 24 hours): Temp Pulse Resp BP Pulse Ox 98.3 F 57 L 18 143/80 98 03/20/17 07:00 03/20/17 07:00 03/20/17 07:00 03/20/17 07:00 03/20/17 07:00 - Medications Medications: Current Medications Famotidine (Pepcid) 20 mg PO DAILY [facility] Heparin Sodium (Porcine) (Heparin) 5,000 units SC Q12 [facility] Last Admin: 03/20/17 10:15 Dose: 5,000 units Dextrose/Sodium Chloride (Dextrose 5%/0.45% Ns 1000 Ml) 1,000 mls @ 100 mls/hr IV .Q10H [facility] Last Admin: 03/20/17 10:21 Dose: Not Given Multivitamins/Vitamin C 10 ml/Thiamine HCl 100 mg/ Folic Acid 1 mg/ Sodium Chloride 1,011.2 mls @ 100 mls/hr IV .Q10H7M ONE Stop: 03/20/17 16:03 Last Admin: 03/20/17 10:16 Dose: 100 mls/hr Lorazepam (Ativan) 2 mg PO Q4 PRN PRN Reason: withdrawal symptoms Lorazepam (Ativan) 1 mg IVP Q6H PRN PRN Reason: Seizure activity Ondansetron HCl (Zofran Inj) 4 mg IVP Q6 PRN PRN Reason: Nausea/Vomiting - Labs Labs: PT 11.7 SECONDS (9.7-12.2) 03/19/17 20:08 INR 1.0 03/19/17 20:08 APTT 28 SECONDS (21-34) 03/19/17 20:08 - Constitutional Appears: Non-toxic, No Acute Distress - Head Exam Head Exam: ATRAUMATIC, NORMOCEPHALIC - Eye Exam Eye Exam: EOMI - ENT Exam ENT Exam: Mucous Membranes Dry - Respiratory Exam Respiratory Exam: Clear to Ausculation Bilateral - Cardiovascular Exam Cardiovascular Exam: +S1, +S2 - GI/Abdominal Exam GI & Abdominal Exam: Soft, Tenderness (epigastric), Normal Bowel Sounds - Extremities Exam Extremities Exam: Normal Inspection. absent: Pedal Edema - Neurological Exam Neurological Exam: Alert, Awake - Psychiatric Exam Psychiatric exam: Normal Affect - Skin Skin Exam: Warm Assessment and Plan - Assessment and Plan (Free Text) Assessment: (1) Syncope Assessment & Plan: Consult Cardio- Dr. Zimmerman- loop recorder interrogation- help appreciated will check orthostatic vitals CT head without acute findings CXR no infiltrate Last echo- 12/16/16- Mild concentric LVH, Normal LV systolic dysfunction, EF >70% , LA borderline dilated, Grade I abnormal relation pattern Status: Acute (2) Alcohol abuse Assessment & Plan: Alcohol level on admission was 444 Continue Ativan PO for withdrawal symptoms Continue Ativan 1mg IVP Q6h PRN seizure activity banana bag CIWA protocol seizure precautions aspiration precautions fall precautions Status: Acute (3) History of loop recorder Assessment & Plan: Dr. Zimmerman consulted for loop recorder interrogation - Loop recorder last interrogated 01/08/17- no abnormal cardiac activity (4) Abdominal Pain Assessment & Plan: Seizure precautions Aspiration precautions Zofran IVP PRN added Ativan PO for withdrawal Lipase WNL (138) (5) Anemia Assessment & Plan: Hgb 8.7, patient's baseline hovers in the 8.5- 9.5 range will continue to monitor (6) Prophylactic measure Assessment & Plan: heparing 5000u sc q12h Pepcid SCDs Status: Acute All Medical management as per Dr. Rosen
--- NOTE | 2017-03-20 11:14 | CARD ---
APPROVED REPORT EKG Measurement Heart [id number] NC 224P63 [id number] <Conclusion> Sinus rhythm with 1st degree AV block Nonspecific T wave abnormality Prolonged QT Abnormal ECG
[2017-03-20 13:45] LABS: BASO % 1.2 % (0.0-2.0); EOS % 1.8 % (0.0-4.0); HEMATOCRIT 23.3 % (35.0-51.0); LYMPH # 0.7 K/uL (1.0-4.3); LYMPH % 37.8 % (20.0-40.0); MEAN CELL VOLUME 94.7 fL (80.0-94.0); MEAN CORPUSCULAR HEMOGLOBIN 31.2 pg (27.0-31.0); MEAN CORPUSCULAR HGB CONC 32.9 g/dL (33.0-37.0); MEAN PLATELET VOLUME 7.9 fL (7.2-11.7); MONO # 0.3 K/uL (0.0-0.8); MONO % 15.5 % (0.0-10.0); NRBC % 0.4 % (0.0-2.0)
[2017-03-20 13:51] LABS: CHLORIDE 98 mmol/L (98-107); SODIUM 137 mmol/L (132-148)
[2017-03-20 13:52] LABS: POTASSIUM 3.6 mmol/L (3.6-5.2)
[2017-03-20 13:53] LABS: GFR AFRICAN-AMERICAN > 60
--- NOTE | 2017-03-20 13:53 | CP.PCM.CON ---
<Evans Pastor - Last Filed: 03/20/17 13:36> History of Present Illness - History of Present Illness History of Present Illness: Consult Note for Dr. Zimmerman Reason for Consult: Syncope and Interrogate Loop Recorder 61 y/o M with PMH of Asthma and recurrent syncopal episodes presents to the hospital on 03/19/17 after syncopal episode. Pt states he was walking to the store and as he was crossing the street he passed out and woke up at the hospital. Pt describes not feeling well several days prior to episode. He admits to fever, chest pain, shortness of breath, and gait instability. Pt admits to having weakness in his legs and uses a cane for ambulation. Pt does not remember passing out or if he hit his head on the fall. Pt has been here in the past for similar complaints. Pt was instructed on last d/c 2 months ago to increase fluid intake as syncopal episodes were likely due to orthostatics at that time. Pt states he has been complaint with increased fluid intake at home. Pt does admit to drinking vodka daily, having his last drink 2 days ago. Today, pt states he feels well with no episodes of syncope or dizziness. Denies N/V/D, dysuria, visual changes, focal neurological deficits, bowel or bladder incontinence. PMH: Asthma, recurrent syncope PSH: Loop recorder (Still implanted) Family Hx: Esophageal cancer Social Hx: 2/3 cigarettes x 37 years, Vodka daily, denies illicit drug use Allergies: Shellfish Medication: None Review of Systems - Review of Systems Review of Systems: As per HPI. Past Patient History - Infectious Disease Hx of Infectious Diseases: None - Past Medical History & Family History Past Medical History?: Yes - Past Social History Smoking Status: Former Smoker - CARDIAC Hx Hypertension: Yes Hx Peripheral Edema: Yes - PULMONARY Hx Respiratory Disorders: No - NEUROLOGICAL Hx Seizures: No - HEENT Hx HEENT Problems: Yes Hx Cataracts: Yes ([facility].Cataract Extraction 2013) - RENAL Hx Chronic Kidney Disease: No - ENDOCRINE/METABOLIC Hx Endocrine Disorders: No - HEMATOLOGICAL/ONCOLOGICAL Hx Blood Transfusions: Yes Hx Hepatitis C: Yes Hx Human Immunodeficiency Virus (HIV): No - INTEGUMENTARY Hx Dermatological Problems: No - MUSCULOSKELETAL/RHEUMATOLOGICAL Hx Arthritis: Yes (B/L KNEE PAIN) Hx Falls: No - GASTROINTESTINAL Hx Gastritis: Yes Hx Pancreatitis: Yes - GENITOURINARY/GYNECOLOGICAL Hx Sexually Transmitted Disorders: No - PSYCHIATRIC Hx Depression: Yes Hx Substance Use: No - SURGICAL HISTORY Hx Surgeries: Yes Hx Eye Surgery: Yes ([facility]. Cataract Extraction 2013) Other/Comment: "head injury" hx. "implanted loop recorder" - ANESTHESIA Hx Anesthesia: Yes Hx Anesthesia Reactions: No Hx Malignant Hyperthermia: No Meds Allergies/Adverse Reactions: Allergies Allergy/AdvReac Type Severity Reaction Status Date / Time Iodinated Contrast- Oral and Allergy Severe SWELLING Verified 03/06/17 17:54 IV Dye shellfish derived Allergy Intermediate RASH Verified 03/06/17 17:54 milk AdvReac Intermediate DIARRHEA Verified 03/06/17 17:54 - Medications Medications: Current Medications Famotidine (Pepcid) 20 mg PO DAILY [facility] Last Admin: 03/20/17 12:29 Dose: 20 mg Heparin Sodium (Porcine) (Heparin) 5,000 units SC Q12 [facility] Last Admin: 03/20/17 10:15 Dose: 5,000 units Dextrose/Sodium Chloride (Dextrose 5%/0.45% Ns 1000 Ml) 1,000 mls @ 100 mls/hr IV .Q10H [facility] Last Admin: 03/20/17 10:21 Dose: Not Given Multivitamins/Vitamin C 10 ml/Thiamine HCl 100 mg/ Folic Acid 1 mg/ Sodium Chloride 1,011.2 mls @ 100 mls/hr IV .Q10H7M ONE Stop: 03/20/17 16:03 Last Admin: 03/20/17 10:16 Dose: 100 mls/hr Lorazepam (Ativan) 2 mg PO Q4 PRN PRN Reason: withdrawal symptoms Last Admin: 03/20/17 12:54 Dose: 2 mg Lorazepam (Ativan) 1 mg IVP Q6H PRN PRN Reason: Seizure activity Ondansetron HCl (Zofran Inj) 4 mg IVP Q6 PRN PRN Reason: Nausea/Vomiting Physical Exam - Constitutional Appears: Well, No Acute Distress - Head Exam Head Exam: ATRAUMATIC, NORMAL INSPECTION, NORMOCEPHALIC - ENT Exam ENT Exam: Mucous Membranes Moist - Neck Exam Neck exam: Negative for: Lymphadenopathy - Respiratory Exam Respiratory Exam: Clear to Auscultation Bilateral, NORMAL BREATHING PATTERN. absent: Rales, Rhonchi - Cardiovascular Exam Cardiovascular Exam: RRR, +S1, +S2 - GI/Abdominal Exam GI & Abdominal Exam: Normal Bowel Sounds, Soft. absent: Tenderness - Extremities Exam Extremities exam: Positive for: normal inspection. Negative for: calf tenderness, pedal edema - Neurological Exam Neurological exam: Alert, Oriented x3 Additional comments: Tremulous - Skin Skin Exam: Intact, Normal Color, Warm Results - Vital Signs Recent Vital Signs: Last Vital Signs Temp 98.3 F 03/20/17 07:00 Pulse 68 03/20/17 08:25 Resp 18 03/20/17 07:00 BP 143/80 03/20/17 07:00 Pulse Ox 98 03/20/17 07:00 - Labs Result Diagrams: 03/19/17 20:08 03/19/17 20:08 Assessment & Plan (1) History of loop recorder Assessment and Plan: Loop recorder will be interrogated Status: Chronic (2) Syncope Assessment and Plan: Troponin negative x 1 EKG shows first degree heart block Echocardiogram (12/16) shows EF 70%, with mild LVH Pt worked up for similar symptoms 2 months ago Alcohol cessation Adequate fluid hydration Status: Acute <Noel Zimmerman - Last Filed: 03/23/17 11:01> Meds - Medications Medications: Current Medications Acetaminophen (Tylenol 325mg Tab) 650 mg PO Q6 PRN PRN Reason: Pain, Mild (1-3) Famotidine (Pepcid) 20 mg PO DAILY [facility] Last Admin: 03/23/17 09:30 Dose: 20 mg Heparin Sodium (Porcine) (Heparin) 5,000 units SC Q12 [facility] Last Admin: 03/20/17 10:15 Dose: 5,000 units Lorazepam (Ativan) 2 mg PO Q4 PRN PRN Reason: withdrawal symptoms Last Admin: 03/20/17 12:54 Dose: 2 mg Lorazepam (Ativan) 1 mg IVP Q6H PRN PRN Reason: Seizure activity Morphine Sulfate (Morphine) 2 mg IVP Q4 PRN PRN Reason: Pain, moderate (4-7) Last Admin: 03/23/17 09:26 Dose: 2 mg Ondansetron HCl (Zofran Inj) 4 mg IVP Q6 PRN PRN Reason: Nausea/Vomiting Last Admin: 03/23/17 10:13 Dose: 4 mg Results - Vital Signs Recent Vital Signs: Last Vital Signs Temp 98.5 F 03/23/17 07:00 Pulse 56 L 03/23/17 07:00 Resp 18 03/23/17 07:00 BP 146/80 03/23/17 07:00 Pulse Ox 97 03/23/17 07:00 - Labs Result Diagrams: 03/23/17 07:16 03/23/17 07:16 Labs: Laboratory Results - last 24 hr 03/23/17 03/23/17 07:16 07:16 WBC 2.5 L RBC 2.74 L Hgb 8.7 L Hct 26.0 L MCV 94.9 H MCH 31.7 H MCHC 33.4 RDW 18.3 H Plt Count 133 MPV 9.0 Neut % (Auto) 45.8 L Lymph % (Auto) 34.3 [place] % (Auto) 15.4 H Eos % (Auto) 3.6 Baso % (Auto) 0.9 Neut # 1.2 L Lymph # 0.9 L [place] # 0.4 Eos # 0.1 Baso # 0.0 Sodium 133 Potassium 3.9 Chloride 97 L Carbon Dioxide 28 Anion Gap 12 BUN 8 L Creatinine 0.8 Est GFR ( Amer) > 60 Est GFR (Non-Af Amer) > 60 Random Glucose 98 Calcium 8.3 L Phosphorus 3.7 Magnesium 1.3 L Total Bilirubin 0.6 AST 119 H ALT 40 Alkaline Phosphatase 63 Total Protein 6.9 Albumin 3.7 Globulin 3.2 Albumin/Globulin Ratio 1.1 Attending/Attestation - Attestation I have personally seen and examined this patient.: Yes I have fully participated in the care of the patient.: Yes I have reviewed all pertinent clinical information: Yes Notes (Text): 03/23/17 11:01 Pt etoh abuse will interrogate ILR continue IV hydration
[2017-03-20 13:54] LABS: ALB/GLOB RATIO 1.3 (1.0-2.1); ALKALINE PHOSPHATASE 62 U/L (38-126); ALT/SGPT 37 U/L (21-72); AST/SGOT 185 U/L (17-59); BILIRUBIN,TOTAL 0.6 mg/dL (0.2-1.3); BLOOD UREA NITROGEN 11 mg/dL (9-20); CARBON DIOXIDE 25 mmol/L (22-30); GLUCOSE,RANDOM 122 mg/dL (75-110); PHOSPHOROUS 2.7 mg/dL (2.5-4.5); TOTAL PROTEIN 6.6 g/dL (6.3-8.3)
[2017-03-20 13:55] LABS: CALCIUM 7.5 mg/dl (8.6-10.4)
[2017-03-20 14:12] LABS: MAGNESIUM 0.9 mg/dL (1.6-2.3)
[2017-03-20] MEDS: Magnesium Sulfate 1 gm in D5W 1 GM/100 ML BAG IVPB SCH ×2 (15:41→16:32)
[2017-03-21] MEDS: Dextrose 5%/0.45% NS 1,000 ML IV SCH ×4 (02:43→23:39)
[2017-03-21] MEDS: Magnesium Sulfate 1 gm in D5W 1 GM/100 ML BAG IVPB SCH ×2 (03:43→04:28)
--- NOTE | 2017-03-21 05:40 | CP.PCM.PN ---
Subjective - Date & Time of Evaluation Date of Evaluation: 03/21/17 Time of Evaluation: 05:40 Objective - Vital Signs/Intake and Output Vital Signs (last 24 hours): Temp Pulse Resp BP Pulse Ox 98.3 F 64 20 133/74 97 03/20/17 23:00 03/21/17 03:30 03/20/17 23:00 03/20/17 23:00 03/20/17 23:00 Intake and Output: 03/20/17 03/21/17 18:59 06:59 Intake Total 650 Output Total 1600 Balance -950 - Medications Medications: Current Medications Acetaminophen (Tylenol 325mg Tab) 650 mg PO Q6 PRN PRN Reason: Pain, Mild (1-3) Famotidine (Pepcid) 20 mg PO DAILY [facility] Last Admin: 03/20/17 12:29 Dose: 20 mg Heparin Sodium (Porcine) (Heparin) 5,000 units SC Q12 [facility] Last Admin: 03/20/17 10:15 Dose: 5,000 units Dextrose/Sodium Chloride (Dextrose 5%/0.45% Ns 1000 Ml) 1,000 mls @ 100 mls/hr IV .Q10H [facility] Last Admin: 03/21/17 02:43 Dose: Not Given Lorazepam (Ativan) 2 mg PO Q4 PRN PRN Reason: withdrawal symptoms Last Admin: 03/20/17 12:54 Dose: 2 mg Lorazepam (Ativan) 1 mg IVP Q6H PRN PRN Reason: Seizure activity Morphine Sulfate (Morphine) 2 mg IVP Q4 PRN PRN Reason: Pain, moderate (4-7) Last Admin: 03/20/17 23:48 Dose: 2 mg Ondansetron HCl (Zofran Inj) 4 mg IVP Q6 PRN PRN Reason: Nausea/Vomiting - Labs Labs: 03/20/17 13:35 03/20/17 13:35 PT 11.7 SECONDS (9.7-12.2) 03/19/17 20:08 INR 1.0 03/19/17 20:08 APTT 28 SECONDS (21-34) 03/19/17 20:08
[2017-03-21 07:31] LABS: BASO % 0.9 % (0.0-2.0); EOS # 0.1 K/uL (0.0-0.7); EOS % 2.8 % (0.0-4.0); HEMATOCRIT 24.1 % (35.0-51.0); LYMPH # 0.7 K/uL (1.0-4.3); LYMPH % 36.7 % (20.0-40.0); MEAN CELL VOLUME 94.6 fL (80.0-94.0); MEAN CORPUSCULAR HEMOGLOBIN 31.7 pg (27.0-31.0); MEAN CORPUSCULAR HGB CONC 33.5 g/dL (33.0-37.0); MEAN PLATELET VOLUME 8.5 fL (7.2-11.7); MONO # 0.4 K/uL (0.0-0.8); MONO % 17.9 % (0.0-10.0); NRBC % 0.3 % (0.0-2.0); RED CELL DISTRIBUTION WIDTH 18.8 % (11.5-14.5)
[2017-03-21 07:58] LABS: CHLORIDE 99 mmol/L (98-107)
[2017-03-21 07:59] LABS: POTASSIUM 3.7 mmol/L (3.6-5.2); SODIUM 134 mmol/L (132-148)
[2017-03-21 08:01] LABS: ALB/GLOB RATIO 1.2 (1.0-2.1); AST/SGOT 123 U/L (17-59); BILIRUBIN,TOTAL 0.7 mg/dL (0.2-1.3); CARBON DIOXIDE 28 mmol/L (22-30); GFR AFRICAN-AMERICAN > 60; TOTAL PROTEIN 6.5 g/dL (6.3-8.3)
[2017-03-21 08:02] LABS: ALKALINE PHOSPHATASE 61 U/L (38-126); ALT/SGPT 36 U/L (21-72); BLOOD UREA NITROGEN 9 mg/dL (9-20); GLUCOSE,RANDOM 105 mg/dL (75-110); MAGNESIUM 2.1 mg/dL (1.6-2.3); PHOSPHOROUS 2.7 mg/dL (2.5-4.5)
--- NOTE | 2017-03-22 06:52 | CP.PCM.PN ---
Subjective - Date & Time of Evaluation Date of Evaluation: 03/22/17 Time of Evaluation: 06:52 Objective - Vital Signs/Intake and Output Vital Signs (last 24 hours): Temp Pulse Resp BP Pulse Ox 98.7 F 62 20 147/90 98 03/21/17 23:00 03/22/17 03:35 03/21/17 23:00 03/21/17 23:00 03/21/17 23:00 Intake and Output: 03/21/17 03/22/17 18:59 06:59 Intake Total 1150 Output Total 950 Balance 200 - Medications Medications: Current Medications Acetaminophen (Tylenol 325mg Tab) 650 mg PO Q6 PRN PRN Reason: Pain, Mild (1-3) Famotidine (Pepcid) 20 mg PO DAILY [facility] Last Admin: 03/21/17 10:34 Dose: 20 mg Heparin Sodium (Porcine) (Heparin) 5,000 units SC Q12 [facility] Last Admin: 03/20/17 10:15 Dose: 5,000 units Dextrose/Sodium Chloride (Dextrose 5%/0.45% Ns 1000 Ml) 1,000 mls @ 100 mls/hr IV .Q10H [facility] Last Admin: 03/21/17 23:39 Dose: 100 mls/hr Lorazepam (Ativan) 2 mg PO Q4 PRN PRN Reason: withdrawal symptoms Last Admin: 03/20/17 12:54 Dose: 2 mg Lorazepam (Ativan) 1 mg IVP Q6H PRN PRN Reason: Seizure activity Morphine Sulfate (Morphine) 2 mg IVP Q4 PRN PRN Reason: Pain, moderate (4-7) Last Admin: 03/22/17 05:57 Dose: 2 mg Ondansetron HCl (Zofran Inj) 4 mg IVP Q6 PRN PRN Reason: Nausea/Vomiting - Labs Labs: 03/21/17 07:15 03/21/17 07:15 PT 11.7 SECONDS (9.7-12.2) 03/19/17 20:08 INR 1.0 03/19/17 20:08 APTT 28 SECONDS (21-34) 03/19/17 20:08
[2017-03-22] MEDS: Dextrose 5%/0.45% NS 1,000 ML IV SCH ×3 (07:55→18:00)
[2017-03-23] MEDS: Dextrose 5%/0.45% NS 1,000 ML IV SCH ×2 (06:01→19:34)
[2017-03-23 07:43] LABS: BASO % 0.9 % (0.0-2.0); EOS # 0.1 K/uL (0.0-0.7); EOS % 3.6 % (0.0-4.0); LYMPH # 0.9 K/uL (1.0-4.3); LYMPH % 34.3 % (20.0-40.0); MEAN CELL VOLUME 94.9 fL (80.0-94.0); MEAN CORPUSCULAR HEMOGLOBIN 31.7 pg (27.0-31.0); MEAN CORPUSCULAR HGB CONC 33.4 g/dL (33.0-37.0); MONO # 0.4 K/uL (0.0-0.8); MONO % 15.4 % (0.0-10.0); NRBC % 0.1 % (0.0-2.0); RED CELL DISTRIBUTION WIDTH 18.3 % (11.5-14.5); WHITE BLOOD COUNT 2.5 K/uL (4.8-10.8)
[2017-03-23 07:44] LABS: CHLORIDE 97 mmol/L (98-107); SODIUM 133 mmol/L (132-148)
[2017-03-23 07:45] LABS: POTASSIUM 3.9 mmol/L (3.6-5.2)
[2017-03-23 07:46] LABS: GFR AFRICAN-AMERICAN > 60
[2017-03-23 07:47] LABS: ALB/GLOB RATIO 1.1 (1.0-2.1); ALKALINE PHOSPHATASE 63 U/L (38-126); ALT/SGPT 40 U/L (21-72); AST/SGOT 119 U/L (17-59); BILIRUBIN,TOTAL 0.6 mg/dL (0.2-1.3); BLOOD UREA NITROGEN 8 mg/dL (9-20); CARBON DIOXIDE 28 mmol/L (22-30); GLUCOSE,RANDOM 98 mg/dL (75-110); PHOSPHOROUS 3.7 mg/dL (2.5-4.5); TOTAL PROTEIN 6.9 g/dL (6.3-8.3)
[2017-03-23 07:48] LABS: CALCIUM 8.3 mg/dl (8.6-10.4); MAGNESIUM 1.3 mg/dL (1.6-2.3)
--- NOTE | 2017-03-23 10:05 | CP.PCM.PN ---
Subjective - Date & Time of Evaluation Date of Evaluation: 03/23/17 Time of Evaluation: 07:45 - Subjective Subjective: PGY2 Medicine Note- Dr. Rosen's service Patient seen and examined at bedside. No overnight events per nursing. Patient reports that he feels sober, however continues to c/o nausea, with one episode of vomiting this morning (food contents). Patient c/o mild epigastric pain, which he attributes to vomiting. Patient denies fever, chills, chest pain, SOB, abdominal pain, hematemesis, d/c, LE edema, or any additional complaints. Objective - Vital Signs/Intake and Output Vital Signs (last 24 hours): Temp Pulse Resp BP Pulse Ox 98.5 F 56 L 18 146/80 97 03/23/17 07:00 03/23/17 07:00 03/23/17 07:00 03/23/17 07:00 03/23/17 07:00 Intake and Output: 03/23/17 03/23/17 06:59 18:59 Intake Total 1200 Output Total 1100 Balance 100 - Medications Medications: Current Medications Acetaminophen (Tylenol 325mg Tab) 650 mg PO Q6 PRN PRN Reason: Pain, Mild (1-3) Famotidine (Pepcid) 20 mg PO DAILY [facility] Last Admin: 03/23/17 09:30 Dose: 20 mg Heparin Sodium (Porcine) (Heparin) 5,000 units SC Q12 [facility] Last Admin: 03/20/17 10:15 Dose: 5,000 units Magnesium Sulfate/Dextrose (Magnesium Sulfate 1 Gm/100 Ml D5w) 1 gm in 100 mls @ 300 mls/hr IVPB Q30M [facility] Stop: 03/23/17 10:34 Lorazepam (Ativan) 2 mg PO Q4 PRN PRN Reason: withdrawal symptoms Last Admin: 03/20/17 12:54 Dose: 2 mg Lorazepam (Ativan) 1 mg IVP Q6H PRN PRN Reason: Seizure activity Morphine Sulfate (Morphine) 2 mg IVP Q4 PRN PRN Reason: Pain, moderate (4-7) Last Admin: 03/23/17 09:26 Dose: 2 mg Ondansetron HCl (Zofran Inj) 4 mg IVP Q6 PRN PRN Reason: Nausea/Vomiting - Labs Labs: 03/23/17 07:16 03/23/17 07:16 PT 11.7 SECONDS (9.7-12.2) 03/19/17 20:08 INR 1.0 03/19/17 20:08 APTT 28 SECONDS (21-34) 03/19/17 20:08 - Additional Findings Additional findings: - Constitutional Appears: Non-toxic, No Acute Distress - Head Exam Head Exam: ATRAUMATIC, NORMOCEPHALIC - Eye Exam Eye Exam: EOMI - ENT Exam ENT Exam: Mucous Membranes Dry - Respiratory Exam Respiratory Exam: Clear to Ausculation Bilateral - Cardiovascular Exam Cardiovascular Exam: +S1, +S2 - GI/Abdominal Exam GI & Abdominal Exam: Soft, Tenderness (epigastric), Normal Bowel Sounds - Extremities Exam Extremities Exam: Normal Inspection. absent: Pedal Edema - Neurological Exam Neurological Exam: Alert, Awake - Psychiatric Exam Psychiatric exam: Normal Affect - Skin Skin Exam: Warm Assessment and Plan - Assessment and Plan (Free Text) Assessment: (1) Syncope Assessment & Plan: 03/23: loop recorder interogated today - no recent events. Consult Cardio- Dr. Zimmerman- loop recorder interrogation- help appreciated CT head without acute findings CXR no infiltrate Last echo- 12/16/16- Mild concentric LVH, Normal LV systolic dysfunction, EF >70% , LA borderline dilated, Grade I abnormal relation pattern Status: Acute (2) Alcohol abuse Assessment & Plan: 03/23: pt reports feeling sober today. Alcohol level on admission was 444 Continue Ativan PO for withdrawal symptoms Continue Ativan 1mg IVP Q6h PRN seizure activity banana bag CIWA protocol seizure precautions aspiration precautions fall precautions Status: Acute (3) History of loop recorder Assessment & Plan: 03/23: loop recorder interogated today - no recent events. Dr. Zimmerman consulted for loop recorder interrogation - Loop recorder last interrogated 01/08/17- no abnormal cardiac activity (4) Abdominal Pain Assessment & Plan: Seizure precautions Aspiration precautions Zofran IVP PRN added Ativan PO for withdrawal Lipase WNL (138) (5) Anemia Assessment & Plan: Hgb 8.7, patient's baseline hovers in the 8.5- 9.5 range will continue to monitor (6) Prophylactic measure Assessment & Plan: heparing 5000u sc q12h Pepcid SCDs PT - recommends JOSE for 3-5x per week for 2weeks Status: Acute All Medical management as per Dr. Rosen Disposition: Patient stable for discharge to [facility] (PT recommends JOSE 3-5x per week for 2weeks)
[2017-03-23] MEDS: Magnesium Sulfate 1 gm in D5W 1 GM/100 ML BAG IVPB SCH ×2 (10:10→10:53)
--- NOTE | 2017-03-23 10:26 | CP.PCM.PN ---
<Evasn Pastor - Last Filed: 03/23/17 10:22> Subjective - Date & Time of Evaluation Date of Evaluation: 03/23/17 Time of Evaluation: 10:22 - Subjective Subjective: Progress Note for Dr. Zimmerman Pt seen and examined at bedside. Pt doing well overnight with no acute events. Pt with no dizziness or syncopal episodes since admission to the hospital. Denies CP, SOB, N/V/D. Objective - Vital Signs/Intake and Output Vital Signs (last 24 hours): Temp Pulse Resp BP Pulse Ox 98.5 F 56 L 18 146/80 97 03/23/17 07:00 03/23/17 07:00 03/23/17 07:00 03/23/17 07:00 03/23/17 07:00 Intake and Output: 03/23/17 03/23/17 06:59 18:59 Intake Total 1200 Output Total 1100 Balance 100 - Medications Medications: Current Medications Acetaminophen (Tylenol 325mg Tab) 650 mg PO Q6 PRN PRN Reason: Pain, Mild (1-3) Famotidine (Pepcid) 20 mg PO DAILY [facility] Last Admin: 03/23/17 09:30 Dose: 20 mg Heparin Sodium (Porcine) (Heparin) 5,000 units SC Q12 [facility] Last Admin: 03/20/17 10:15 Dose: 5,000 units Magnesium Sulfate/Dextrose (Magnesium Sulfate 1 Gm/100 Ml D5w) 1 gm in 100 mls @ 300 mls/hr IVPB Q30M [facility] Stop: 03/23/17 10:34 Last Admin: 03/23/17 10:10 Dose: 300 mls/hr Lorazepam (Ativan) 2 mg PO Q4 PRN PRN Reason: withdrawal symptoms Last Admin: 03/20/17 12:54 Dose: 2 mg Lorazepam (Ativan) 1 mg IVP Q6H PRN PRN Reason: Seizure activity Morphine Sulfate (Morphine) 2 mg IVP Q4 PRN PRN Reason: Pain, moderate (4-7) Last Admin: 03/23/17 09:26 Dose: 2 mg Ondansetron HCl (Zofran Inj) 4 mg IVP Q6 PRN PRN Reason: Nausea/Vomiting Last Admin: 03/23/17 10:13 Dose: 4 mg - Labs Labs: 03/23/17 07:16 03/23/17 07:16 PT 11.7 SECONDS (9.7-12.2) 03/19/17 20:08 INR 1.0 03/19/17 20:08 APTT 28 SECONDS (21-34) 03/19/17 20:08 - Constitutional Appears: Well, No Acute Distress - Head Exam Head Exam: ATRAUMATIC, NORMAL INSPECTION, NORMOCEPHALIC - ENT Exam ENT Exam: Mucous Membranes Moist - Respiratory Exam Respiratory Exam: Clear to Ausculation Bilateral, NORMAL BREATHING PATTERN - Cardiovascular Exam Cardiovascular Exam: RRR, +S1, +S2 - GI/Abdominal Exam GI & Abdominal Exam: Soft, Normal Bowel Sounds. absent: Tenderness - Extremities Exam Extremities Exam: Normal Inspection. absent: Calf Tenderness, Pedal Edema - Neurological Exam Neurological Exam: Alert, Awake, Oriented x3 - Skin Skin Exam: Intact, Normal Color, Warm Assessment and Plan (1) History of loop recorder Assessment & Plan: Loop recorder to be interrogated today No recent syncopal episodes or dizziness Status: Chronic <Noel Zimmerman - Last Filed: 03/23/17 11:02> Objective - Vital Signs/Intake and Output Vital Signs (last 24 hours): Temp Pulse Resp BP Pulse Ox 98.5 F 56 L 18 146/80 97 03/23/17 07:00 03/23/17 07:00 03/23/17 07:00 03/23/17 07:00 03/23/17 07:00 Intake and Output: 03/23/17 03/23/17 06:59 18:59 Intake Total 1200 Output Total 1100 Balance 100 - Medications Medications: Current Medications Acetaminophen (Tylenol 325mg Tab) 650 mg PO Q6 PRN PRN Reason: Pain, Mild (1-3) Famotidine (Pepcid) 20 mg PO DAILY [facility] Last Admin: 03/23/17 09:30 Dose: 20 mg Heparin Sodium (Porcine) (Heparin) 5,000 units SC Q12 [facility] Last Admin: 03/20/17 10:15 Dose: 5,000 units Lorazepam (Ativan) 2 mg PO Q4 PRN PRN Reason: withdrawal symptoms Last Admin: 03/20/17 12:54 Dose: 2 mg Lorazepam (Ativan) 1 mg IVP Q6H PRN PRN Reason: Seizure activity Morphine Sulfate (Morphine) 2 mg IVP Q4 PRN PRN Reason: Pain, moderate (4-7) Last Admin: 03/23/17 09:26 Dose: 2 mg Ondansetron HCl (Zofran Inj) 4 mg IVP Q6 PRN PRN Reason: Nausea/Vomiting Last Admin: 03/23/17 10:13 Dose: 4 mg - Labs Labs: 03/23/17 07:16 03/23/17 07:16 PT 11.7 SECONDS (9.7-12.2) 03/19/17 20:08 INR 1.0 03/19/17 20:08 APTT 28 SECONDS (21-34) 03/19/17 20:08 Attending/Attestation - Attestation I have personally seen and examined this patient.: Yes I have fully participated in the care of the patient.: Yes I have reviewed all pertinent clinical information, including history, physical exam and plan: Yes Notes (Text): 03/23/17 11:02 no syncope call back to company to interrogate device
[2017-03-23 15:24] VITALS: RESP 20
[2017-03-24 08:23] VITALS: O2SAT 99
--- NOTE | 2017-03-24 10:11 | CP.PCM.PN ---
Subjective - Date & Time of Evaluation Date of Evaluation: 03/24/17 Time of Evaluation: 10:08 - Subjective Subjective: Progress Note for Dr. Zimmerman Pt seen and examined at bedside. Pt states overnight he experienced some abdominal pain and vomiting. This morning, these symptoms have subsided, although he does feel weak. Denies CP, SOB, N/V/D. Objective - Vital Signs/Intake and Output Vital Signs (last 24 hours): Temp Pulse Resp BP Pulse Ox 97.6 F 72 20 128/77 99 03/24/17 07:40 03/24/17 08:25 03/24/17 07:40 03/24/17 07:40 03/24/17 07:40 - Medications Medications: Current Medications Acetaminophen (Tylenol 325mg Tab) 650 mg PO Q6 PRN PRN Reason: Pain, Mild (1-3) Famotidine (Pepcid) 20 mg PO DAILY [facility] Last Admin: 03/23/17 09:30 Dose: 20 mg Heparin Sodium (Porcine) (Heparin) 5,000 units SC Q12 [facility] Last Admin: 03/20/17 10:15 Dose: 5,000 units Lorazepam (Ativan) 2 mg PO Q4 PRN PRN Reason: withdrawal symptoms Last Admin: 03/20/17 12:54 Dose: 2 mg Lorazepam (Ativan) 1 mg IVP Q6H PRN PRN Reason: Seizure activity Morphine Sulfate (Morphine) 2 mg IVP Q4 PRN PRN Reason: Pain, moderate (4-7) Last Admin: 03/24/17 06:38 Dose: 2 mg Ondansetron HCl (Zofran Inj) 4 mg IVP Q6 PRN PRN Reason: Nausea/Vomiting Last Admin: 03/23/17 10:13 Dose: 4 mg - Labs Labs: 03/23/17 07:16 03/23/17 07:16 PT 11.7 SECONDS (9.7-12.2) 03/19/17 20:08 INR 1.0 03/19/17 20:08 APTT 28 SECONDS (21-34) 03/19/17 20:08 - Constitutional Appears: Well, No Acute Distress - Head Exam Head Exam: ATRAUMATIC, NORMAL INSPECTION, NORMOCEPHALIC - Respiratory Exam Respiratory Exam: Clear to Ausculation Bilateral, NORMAL BREATHING PATTERN - Cardiovascular Exam Cardiovascular Exam: RRR, +S1, +S2 - GI/Abdominal Exam GI & Abdominal Exam: Soft, Normal Bowel Sounds. absent: Tenderness - Extremities Exam Extremities Exam: absent: Calf Tenderness - Neurological Exam Neurological Exam: Alert, Awake, Oriented x3 - Skin Skin Exam: Intact, Normal Color, Warm Assessment and Plan (1) History of loop recorder Assessment & Plan: Loop recorder interrogated yesterday No abnormal events No recent syncopa; events or dizziness Status: Chronic
--- NOTE | 2017-03-24 11:23 | CP.PCM.PN ---
Subjective - Date & Time of Evaluation Date of Evaluation: 03/24/17 Time of Evaluation: 07:30 - Subjective Subjective: PGY2 Medicine Note- Dr. Rosen's service Patient seen and examined at bedside. No overnight events per nursing. Patient reports that he feels sober, experienced nausea last night, however feels well today. He denies vomiting today. Patient denies fever, chills, chest pain, SOB, abdominal pain, hematemesis, d/c, LE edema, or any additional complaints. He states he prefers to home home with PT services, and does not want to attend [facility] due to the inconvenience of having to go home to obtain new clothes. Patient is stable for discharge per Dr. Rosen. Patient should resume home medications. Script provided for [facility] and patient setup for outpatient Rehab near his home. You are encouraged to continue with your [employer] meetings as they will be very important in remaining sober. Please make an appointment and follow up with your PMD Dr. Rosen within one week of discharge. Patient should return to ED immediately if symptoms return or worsen. Instructions discussed with patient who understood and agreed. Objective - Vital Signs/Intake and Output Vital Signs (last 24 hours): Temp Pulse Resp BP Pulse Ox 97.6 F 72 20 128/77 99 03/24/17 07:40 03/24/17 08:25 03/24/17 07:40 03/24/17 07:40 03/24/17 07:40 - Medications Medications: Current Medications Acetaminophen (Tylenol 325mg Tab) 650 mg PO Q6 PRN PRN Reason: Pain, Mild (1-3) Famotidine (Pepcid) 20 mg PO DAILY PENDING SALE TO [facility] Last Admin: 03/24/17 10:53 Dose: 20 mg Heparin Sodium (Porcine) (Heparin) 5,000 units SC Q12 ALBERTO Last Admin: 03/20/17 10:15 Dose: 5,000 units Lorazepam (Ativan) 2 mg PO Q4 PRN PRN Reason: withdrawal symptoms Last Admin: 03/20/17 12:54 Dose: 2 mg Lorazepam (Ativan) 1 mg IVP Q6H PRN PRN Reason: Seizure activity Morphine Sulfate (Morphine) 2 mg IVP Q4 PRN PRN Reason: Pain, moderate (4-7) Last Admin: 03/24/17 06:38 Dose: 2 mg Ondansetron HCl (Zofran Inj) 4 mg IVP Q6 PRN PRN Reason: Nausea/Vomiting Last Admin: 03/23/17 10:13 Dose: 4 mg - Labs Labs: 03/23/17 07:16 03/23/17 07:16 PT 11.7 SECONDS (9.7-12.2) 03/19/17 20:08 INR 1.0 03/19/17 20:08 APTT 28 SECONDS (21-34) 03/19/17 20:08 - Additional Findings Additional findings: - Constitutional Appears: Non-toxic, No Acute Distress - Head Exam Head Exam: ATRAUMATIC, NORMOCEPHALIC - Eye Exam Eye Exam: EOMI - ENT Exam ENT Exam: Mucous Membranes Dry - Respiratory Exam Respiratory Exam: Clear to Ausculation Bilateral - Cardiovascular Exam Cardiovascular Exam: +S1, +S2 - GI/Abdominal Exam GI & Abdominal Exam: Soft, Normal Bowel Sounds. absent: Tenderness - Extremities Exam Extremities Exam: Normal Inspection. absent: Pedal Edema - Neurological Exam Neurological Exam: Alert, Awake - Psychiatric Exam Psychiatric exam: Normal Affect - Skin Skin Exam: Warm Assessment and Plan - Assessment and Plan (Free Text) Assessment: (1) Syncope Assessment & Plan: 03/23: loop recorder interogated today - no recent events. Consult Cardio- Dr. Zimmerman- loop recorder interrogation- help appreciated CT head without acute findings CXR no infiltrate Last echo- 12/16/16- Mild concentric LVH, Normal LV systolic dysfunction, EF >70% , LA borderline dilated, Grade I abnormal relation pattern Status: Acute (2) Alcohol abuse Assessment & Plan: 03/24: pt feels well. He states he is ready to go home with PT. 03/23: pt reports feeling sober today. Alcohol level on admission was 444 Continue Ativan PO for withdrawal symptoms Continue Ativan 1mg IVP Q6h PRN seizure activity banana dante CIWA protocol seizure precautions aspiration precautions fall precautions Status: Acute (3) History of loop recorder Assessment & Plan: 03/23: loop recorder interogated today - no recent events. Dr. Zimmerman consulted for loop recorder interrogation - Loop recorder last interrogated 01/08/17- no abnormal cardiac activity (4) Abdominal Pain Assessment & Plan: 6/27: resolved Seizure precautions Aspiration precautions Zofran IVP PRN added Ativan PO for withdrawal Lipase WNL (138) (5) Anemia Assessment & Plan: Hgb 8.7, patient's baseline hovers in the 8.5- 9.5 range will continue to monitor (6) Prophylactic measure Assessment & Plan: heparing 5000u sc q12h Pepcid SCDs PT - recommends [facility] for 3-5x per week for 2weeks Status: Acute All Medical management as per Dr. Rosen Disposition: Patient stable for discharge to [facility] (PT recommends [facility] 3-5x per week for 2weeks) - however refuses. He will be DC'd home with home PT services.
[2017-03-24 12:02] LABS: BASO % 0.8 % (0.0-2.0); EOS # 0.1 K/uL (0.0-0.7); EOS % 2.9 % (0.0-4.0); HEMATOCRIT 27.1 % (35.0-51.0); LYMPH # 0.8 K/uL (1.0-4.3); LYMPH % 26.8 % (20.0-40.0); MEAN CELL VOLUME 96.3 fL (80.0-94.0); MEAN CORPUSCULAR HEMOGLOBIN 31.4 pg (27.0-31.0); MEAN CORPUSCULAR HGB CONC 32.5 g/dL (33.0-37.0); MEAN PLATELET VOLUME 9.6 fL (7.2-11.7); MONO # 0.5 K/uL (0.0-0.8); MONO % 17.1 % (0.0-10.0); NRBC % 0.1 % (0.0-2.0); RED CELL DISTRIBUTION WIDTH 18.5 % (11.5-14.5); WHITE BLOOD COUNT 2.9 K/uL (4.8-10.8)
[2017-03-24 12:29] LABS: CHLORIDE 100 mmol/L (98-107); POTASSIUM 3.9 mmol/L (3.6-5.2); SODIUM 136 mmol/L (132-148)
[2017-03-24 12:31] LABS: BILIRUBIN,TOTAL 0.8 mg/dL (0.2-1.3); GFR AFRICAN-AMERICAN > 60
[2017-03-24 12:32] LABS: ALB/GLOB RATIO 1.1 (1.0-2.1); ALKALINE PHOSPHATASE 59 U/L (38-126); ALT/SGPT 38 U/L (21-72); AST/SGOT 98 U/L (17-59); BLOOD UREA NITROGEN 8 mg/dL (9-20); CALCIUM 8.6 mg/dl (8.6-10.4); CARBON DIOXIDE 28 mmol/L (22-30); GLUCOSE,RANDOM 80 mg/dL (75-110); MAGNESIUM 1.7 mg/dL (1.6-2.3); PHOSPHOROUS 3.5 mg/dL (2.5-4.5)
[2017-03-24 16:15] VITALS: BP 152/67; PULSE 80; TEMP 98.8
== END 2017-03-24 16:30 | disposition home or self-care (01) | DRG 141 ==
LOC: C.ER 18:35 → C.6T 03-20 05:49 → OBSVTOIN 03-20 11:40 → C.6T 03-22 10:23
PROVIDERS: ADMIT Internal Medicine Pulmonary Disease; ATTEND Internal Medicine Pulmonary Disease
PROC: HZ2ZZZZ Detoxification Services for Substance Abuse Treatment (ICD-10-PCS; principal; 2017-03-20)
DX: R55 Syncope and collapse (principal); F10.230 Alcohol dependence with withdrawal, uncomplicated; I10 Essential (primary) hypertension; I44.0 Atrioventricular block, first degree; F10.220 Alcohol dependence with intoxication, uncomplicated; F32.9 Major depressive disorder, single episode, unspecified; M17.0 Bilateral primary osteoarthritis of knee; Y90.8 Blood alcohol level of 240 mg/100 ml or more; J45.909 Unspecified asthma, uncomplicated; F17.210 Nicotine dependence, cigarettes, uncomplicated; Z80.0 Family history of malignant neoplasm of digestive organs; D64.9 Anemia, unspecified

== ENCOUNTER 2017-03-30 15:21 | Observation (INO) | payer MEDICAID ==
[2017-03-30 15:22] VITALS: BMI 24.8
[2017-03-30 16:21] VITALS: PULSE 72; RESP 18
--- NOTE | 2017-03-30 18:35 | C.PDOC ---
History Of Present Illness 61-year-old male, presents to the emergency department, brought in by EMS, with complaints of public intoxication. Patient with no complaints at this time. Patient has a Hx of multiple visits to ED for same complaint in past. (Radha Madrigal) History Per: Patient, EMS Current Symptoms Are (Timing): Still Present Modifying Factor(s): Alcohol Time Seen by Provider: 03/30/17 16:21 Chief Complaint (Nursing): Substance Abuse Past Medical History Reviewed: Historical Data, Nursing Documentation, Vital Signs - Medical History PMH: Arthritis (B/L KNEE PAIN), Depression, Gastritis, HTN, Pancreatitis, Peripheral Edema Denies: HIV, Kidney Stones, Chronic Kidney Disease, Seizures, Sexually Transmitted Disease Surgical History: Family History: States: No Known Family Hx - Social History Hx Tobacco Use: No (quit 2 months now) Hx Alcohol Use: Yes Hx Substance Use: No - Immunization History Hx Tetanus Toxoid Vaccination: No Hx Influenza Vaccination: No Hx Pneumococcal Vaccination: No Review Of Systems Constitutional: Negative for: Fever, Chills Cardiovascular: Negative for: Chest Pain Respiratory: Negative for: Shortness of Breath Neurological: Negative for: Headache, Dizziness Physical Exam - Physical Exam Appears: Non-toxic, No Acute Distress, Other (intoxicated) Skin: Warm, Dry, No Rash Head: Atraumatic, Normacephalic Eye(s): bilateral: Normal Inspection, PERRL Nose: Normal Lips: Normal Appearing Neck: Normal ROM Cardiovascular: Rhythm Regular Respiratory: Normal Breath Sounds, No Accessory Muscle Use Gastrointestinal/Abdominal: Soft, No Tenderness Back: Normal Inspection, No CVA Tenderness Extremity: Normal ROM Neurological/Psych: Normal Motor, Other (slurred speech) ED Course And Treatment O2 Sat by Pulse Oximetry: 98 (on RA) Pulse Ox Interpretation: Normal Disposition - Disposition Disposition Time: 19:01 - POA Present On Arrival: None - Disposition Disposition: ELOPEMENT - ER ONLY Condition: FAIR - Clinical Impression Clinical Impression: Alcohol intoxication - Scribe Statement The provider has reviewed the documentation as recorded by the Scribe (Julian Julio) - Scribe Statement All medical record entries made by the Scribe were at my direction and personally dictated by me. I have reviewed the chart and agree that the record accurately reflects my personal performance of the history, physical exam, medical decision making, and the department course for this patient. I have also personally directed, reviewed, and agree with the discharge instructions and disposition. (Radha Madrigal) Physician Patient Turnover Patient Signed Over To: Yoanna Hidalgo Handoff Comments: Pending sobriety and disposition Addendum Addendum: 03/30/17 19:51 went to reexamine the pt , but pt had eloped (Yoanna Hidalgo)
[2017-03-30 19:30] VITALS: BP 130/82; TEMP 97.8; O2SAT 99
== END 2017-03-30 19:50 | disposition home or self-care (01) ==
LOC: C.ER 15:21 → C.9OBSV 19:16
PROVIDERS: ADMIT Emergency Medicine; ATTEND Emergency Medicine
DX: F10.129 Alcohol abuse with intoxication, unspecified (principal); I10 Essential (primary) hypertension
CPT/HCPCS: 99283; G0378

== ENCOUNTER 2017-03-30 20:37 | Observation (INO) | payer MEDICAID ==
[2017-03-30 20:37] VITALS: BMI 24.8
[2017-03-30 20:47] VITALS: RESP 16
--- NOTE | 2017-03-30 21:08 | C.PDOC ---
History Of Present Illness Patient presents to the ED after previously being in the ED earlier today and eloping. Patient states he left to have more alcohol and is now back denying any suicidal or homicidal ideations, or physical complaints at this time. Time Seen by Provider: 03/30/17 21:08 Chief Complaint (Nursing): Substance Abuse History Per: Patient History/Exam Limitations: no limitations Onset/Duration Of Symptoms: Hrs Current Symptoms Are (Timing): Still Present Suicide/Self Injury Attempted (Context): None Severity: None Pain Scale Rating Of: 0 Associated Symptoms: denies: Suicidal Thoughts, Suicidal Plan Involuntary Hold By: None Recent travel outside of the [place]: No Additional History Per: Prior Records Past Medical History Reviewed: Historical Data, Nursing Documentation, Vital Signs Vital Signs: Last Vital Signs Temp 97.7 F 03/30/17 20:45 Pulse 70 03/31/17 00:38 Resp 16 03/31/17 00:38 BP 115/80 03/31/17 00:38 Pulse Ox 98 03/31/17 00:38 - Medical History PMH: Arthritis (B/L KNEE PAIN), Depression, Gastritis, HTN, Pancreatitis, Peripheral Edema Surgical History: - [employer] Procedures ALCOHOL DETOXIFICATION (05/03/13) DETOXIFICATION SERVICES FOR SUBSTANCE ABUSE TREATMENT (03/20/17) EXCISION OF DESCENDING COLON, ENDO, DIAGN (03/14/16) EXCISION OF STOMACH, ENDO, DIAGN (11/26/16) EXTIRPATION OF MATTER FROM LARGE INTESTINE, ENDO (01/09/17) GROUP PSYCHOTHERAPY (01/24/16) INSERT OF MONITOR DEV INTO CHEST SUBCU/FASCIA, OPEN APPROACH (12/18/16) MEASURE OF ARTERIAL PRESSURE, PERIPHERAL, PULP GRINDER FEEDER APPROACH (12/18/16) MEASUREMENT OF CARDIAC RHYTHM, EXTERNAL APPROACH (12/18/16) TRANSFUSE NONAUT RED BLOOD CELLS IN PERIPH ART, PERC (01/09/17) TRANSFUSE NONAUT RED BLOOD CELLS IN PERIPH VEIN, PERC (07/28/16) Family History: States: Unknown Family Hx - Social History Hx Tobacco Use: No (quit 2 months now) Hx Alcohol Use: Yes Hx Substance Use: No - Immunization History Hx Tetanus Toxoid Vaccination: No Hx Influenza Vaccination: No Hx Pneumococcal Vaccination: No Review Of Systems Constitutional: Negative for: Fever, Chills Cardiovascular: Negative for: Chest Pain, Palpitations Respiratory: Negative for: Cough, Shortness of Breath Gastrointestinal: Negative for: Nausea, Vomiting, Abdominal Pain, Diarrhea Psych: Negative for: Suicidal ideation Physical Exam - Physical Exam Appears: Non-toxic, No Acute Distress Skin: Warm, Dry Head: Atraumatic Eye(s): bilateral: Normal Inspection Oral Mucosa: Moist Neck: Supple Chest: Symmetrical, No Deformity Cardiovascular: Rhythm Regular Respiratory: No Rales, No Rhonchi, No Stridor, No Wheezing Gastrointestinal/Abdominal: Soft, No Tenderness, No Distention, No Guarding, No Rebound Extremity: Normal ROM (full ROM; full ability to extend and flex left elbow), No Tenderness, Capillary Refill (good capillary refill, less than two seconds ) , No Swelling, Other (1 cm x0.5 cm area of abrasion on left lateral aspect of his left elbow ) Neurological/Psych: Oriented x3 ED Course And Treatment O2 Sat by Pulse Oximetry: 97 (room air ) Pulse Ox Interpretation: Normal Reevaluation Time: 05:01 Reassessment Condition: Improved ED OBSERVATION Discharge: Yes Date of observation admission: 03/30/17 Time of observation admission: 21:12 - Observation admission statement Patient is being placed in observation because:: acute alcohol intoxication - Goals of Observation Goals of observation are:: sobriety - Progress Note Progress Note: 03/30/17 21:12 vitals stable 03/31/17 01:01 no complaints 03/31/17 04:01 ambulating without difficulty Disposition Counseled Patient/Family Regarding: Studies Performed, Diagnosis, Need For Followup - Disposition Disposition: HOME/ ROUTINE Disposition Time: 21:08 Condition: FAIR - Clinical Impression Clinical Impression: Alcohol intoxication, Alcohol abuse, Abrasion - Scribe Statement The provider has reviewed the documentation as recorded by the Agustinibcamacho Hussein All medical record entries made by the Ava were at my direction and personally dictated by me. I have reviewed the chart and agree that the record accurately reflects my personal performance of the history, physical exam, medical decision making, and the department course for this patient. I have also personally directed, reviewed, and agree with the discharge instructions and disposition.
[2017-03-31 05:03] VITALS: O2SAT 97
[2017-03-31 06:16] VITALS: BP 126/74; PULSE 72; TEMP 97.9
== END 2017-03-31 06:16 | disposition home or self-care (01) ==
LOC: C.ER 20:37 → C.9OBSV 21:11
PROVIDERS: ADMIT Emergency Medicine; ATTEND Emergency Medicine
DX: F10.129 Alcohol abuse with intoxication, unspecified (principal); I10 Essential (primary) hypertension
CPT/HCPCS: 99283; G0378

== ENCOUNTER 2017-04-19 19:13 | Observation (INO) | payer MEDICAID ==
[2017-04-19 19:13] VITALS: BMI 24.8
--- NOTE | 2017-04-19 19:44 | C.PDOC ---
History Of Present Illness A 61 y/o M with a Hx of alcohol abuse, c/o alcohol intoxication today. At bed side pt admits to drinking vodka today. Pt states he mechanically fell and hit his head and also c/o bilateral knee pain with abrasion. Pt is well known in the ER with multiple visits. No reported ingestion of other substances. Denies fever, chills, LOC, weakness, numbness, or any other complaints. Time Seen by Provider: 04/19/17 19:24 Chief Complaint (Nursing): Substance Abuse History Per: Patient History/Exam Limitations: no limitations Onset/Duration Of Symptoms: Hrs Current Symptoms Are (Timing): Still Present Suicide/Self Injury Attempted (Context): None Modifying Factor(s): Alcohol Severity: Mild Involuntary Hold By: None Recent travel outside of the [place]: No Additional History Per: Patient Past Medical History Reviewed: Historical Data, Nursing Documentation, Vital Signs Vital Signs: Last Vital Signs Temp 98.1 F 04/20/17 04:42 Pulse 92 H 04/20/17 04:42 Resp 16 04/20/17 04:42 BP 167/74 H 04/20/17 04:42 Pulse Ox 99 04/20/17 04:43 - Medical History PMH: Arthritis (B/L KNEE PAIN), Depression, Gastritis, HTN, Pancreatitis, Peripheral Edema Denies: HIV, Kidney Stones, Chronic Kidney Disease, Seizures, Sexually Transmitted Disease Surgical History: - [facility] Procedures ALCOHOL DETOXIFICATION (05/03/13) DETOXIFICATION SERVICES FOR SUBSTANCE ABUSE TREATMENT (03/20/17) EXCISION OF DESCENDING COLON, ENDO, DIAGN (03/14/16) EXCISION OF STOMACH, ENDO, DIAGN (11/26/16) EXTIRPATION OF MATTER FROM LARGE INTESTINE, ENDO (01/09/17) GROUP PSYCHOTHERAPY (01/24/16) INSERT OF MONITOR DEV INTO CHEST SUBCU/FASCIA, OPEN APPROACH (12/18/16) MEASURE OF ARTERIAL PRESSURE, PERIPHERAL, FREIGHT AIR BRAKE FITTER APPROACH (12/18/16) MEASUREMENT OF CARDIAC RHYTHM, EXTERNAL APPROACH (12/18/16) TRANSFUSE NONAUT RED BLOOD CELLS IN PERIPH ART, PERC (01/09/17) TRANSFUSE NONAUT RED BLOOD CELLS IN PERIPH VEIN, PERC (07/28/16) Family History: States: Unknown Family Hx - Social History Hx Tobacco Use: No (quit 2 months now) Hx Alcohol Use: Yes Hx Substance Use: No - Immunization History Hx Tetanus Toxoid Vaccination: No Hx Influenza Vaccination: No Hx Pneumococcal Vaccination: No Review Of Systems Except As Marked, All Systems Reviewed And Found Negative. Constitutional: Positive for: Other (Alcohol intoxication). Negative for: Fever , Chills Musculoskeletal: Positive for: Leg Pain (Bilateral knee pain) Skin: Positive for: Bruising (Bilateral knee) Neurological: Negative for: Weakness, Numbness, Other (LOC) Physical Exam - Physical Exam Appears: Non-toxic, No Acute Distress, Other (Alcohol intoxication. (+) AOB) Skin: Warm, Dry Head: Atraumatic, Normacephalic Back: No Vertebral Tenderness (Lumbar, or cervical thoracic tenderness) Extremity: Normal ROM, Other (Bilateral knee abrasion) Neurological/Psych: Oriented x3 (Awake and alert) ED Course And Treatment O2 Sat by Pulse Oximetry: 99 (RA) Pulse Ox Interpretation: Normal - Other Rad XRAY Bilateral knees X-Ray: Interpreted by Me, Viewed By Me Interpretation: No acute fractures or dislocations - CT Scan/US CT Head w/o Contrast Other Rad Studies (CT/US): Interpreted By Me, Read By Radiologist CT/US Interpretation: EXAM: CT Head Without Intravenous Contrast. CLINICAL HISTORY: 61 years old, male; Pain; Headache; Patient HX: 03-19-17; Additional info: Fall. TECHNIQUE: Axial computed tomography images of the head/brain without intravenous contrast. This CT exam. was performed using one or more of the following dose reduction techniques: automated exposure. control, adjustment of the mA and/or kV according to patient size, and/or use of iterative. reconstruction technique. EXAM DATE/TIME: Exam ordered 04/19/2017 7 :30 PM. COMPARISON: CT - HEAD W/O CONTRAST 03/19/2017 9:07:41 PM. FINDINGS: Brain: Basal ganglia calcifications are noted bilaterally. No hemorrhage. No significant white matter. disease. No edema. Ventricles: Unremarkable. No ventriculomegaly. Bones/joints: There is an old fracture of the left zygoma. There is an old fracture of the lateral wall. of the left orbit. There is a defect noted in the right lamina papyracea which may be related to old. trauma. Soft tissues: Unremarkable. Sinuses: There is an air-fluid level within the right posterior ethmoid air cell.. Mastoid air cells: Unremarkable as visualized. No mastoid effusion. IMPRESSION: 1. No acute findings in the brain. 2. Old fractures of the left side along the lateral wall of the left orbit. Defect in the right lamina. papyracea may be related to old fracture. 3. Air-fluid level in the right posterior ethmoid air cell suggest acute sinusitis CT Cervical spine w/o contrast Other Rad Studies (CT/US): Interpreted By Me, Read By Radiologist CT/US Interpretation: EXAM: CT Cervical Spine Without Intravenous Contrast. CLINICAL HISTORY: 61 years old, male; Pain; Neck pain; Patient HX: 5-4-17; Additional info: Fall. TECHNIQUE: Axial computed tomography images of the cervical spine without intravenous contrast. This CT. exam was performed using one or more of the following dose reduction techniques: automated. exposure control, adjustment of the mA and/or kV according to patient size, and/or use of iterative. reconstruction technique. Coronal and sagittal reformatted images were created and reviewed. EXAM DATE/TIME: Exam ordered 04/19/2017 7:32 PM. COMPARISON: No relevant prior studies available. FINDINGS: Vertebrae: Unremarkable. No acute fracture. Discs/spinal canal/neural foramina: C1 2: Degenerative changes are noted between the anterior arch of C1 and the dens. Subchondral. sclerosis and marginal osteophyte formation is present. C2-3: Mild facet disease. No stenosis. C3-4: There is advanced narrowing of the intervertebral disc with endplate sclerosis, subchondral cyst. formation and anterior and posterior marginal osteophytes. Moderate bilateral foraminal stenosis. The. canal centrally measures 9 mm in depth. C4-5: There is narrowing of the intervertebral disc space with subchondral cyst formation and anterior. posterior marginal osteophytes. There is a posterior disc osteophyte ridge. There is moderate. foraminal stenosis bilaterally. The canal centrally measures 9 mm. C5-6: There is narrowing of the intervening disc space with endplate sclerosis, subchondral cyst. formation and anteroposterior marginal osteophytes. Is a posterior disc osteophyte ridge. Marked. uncovertebral hypertrophy is present. There is moderate to severe bilateral foraminal stenosis. The. canal centrally measures 9 mm. C6-7: There is narrowing of the intervening disc space with endplate sclerosis, subchondral cyst. formation and anteroposterior marginal osteophytes. There is moderate bilateral foraminal stenosis. There is no central stenosis. There is a moderately advanced uncovertebral hypertrophy. C7-T1: Unremarkable. Sinuses: Mucosal thickening is noted within the left maxillary sinus. An air fluid level seen in the right. posterior ethmoid air cell. Soft tissues: Unremarkable. Lung apices: Minimal paraseptal type emphysema is noted along the mediastinal surface of the right. upper lobe. Bones: There is an old fracture of the left lateral wall of the orbit. A chronic fracture the left zygoma. There is a defect in the right lamina papyracea which suggest previous fracture. The patient is edentulous. IMPRESSION: 1. No acute findings. 2. Moderately advanced degenerative disc disease with mild to moderate foraminal stenosis from C3-. 4 through C6-7. 3. Old fractures of the left zygoma, the lateral wall of the left orbit and the right lamina papyracea. 4. Chronic sinusitis of the left maxillary sinus. Acute sinusitis suggested in a right posterior ethmoid air. cell Medical Decision Making Medical Decision Making: Impression: A 61 y/o M with a Hx of alcohol abuse, c/o alcohol intoxication today. Pt has multiple visits in the ER. Plans: -Tetanus -CT Head -CT spine, cervical -XRAY knee, bilateral -Reassess XRAY bilateral knee: NO acute Fractures or dislocation. as read by me 1154: pt sleeping in nad. 445: pt awake alert ambulatory, asking for d/c ED OBSERVATION Date of observation admission: 04/19/17 Time of observation admission: 20:53 - Observation admission statement Patient is being placed in observation because:: Acute alcohol intoxication - Goals of Observation Goals of observation are:: Sobriety - Progress Note Progress Note: 04/20/17 04:15 Resting comfortably, no acute distress Disposition - Disposition Disposition: HOME/ ROUTINE Disposition Time: 04:45 Condition: STABLE - Clinical Impression Clinical Impression: Alcohol abuse, Fall, Head injury, Knee sprain - Scribe Statement The provider has reviewed the documentation as recorded by the Scribcamacho [email or web address] All medical record entries made by the Agustinibcamacho were at my direction and personally dictated by me. I have reviewed the chart and agree that the record accurately reflects my personal performance of the history, physical exam, medical decision making, and the department course for this patient. I have also personally directed, reviewed, and agree with the discharge instructions and disposition.
--- NOTE | 2017-04-19 20:34 | CT ---
EXAM: CT Head Without Intravenous Contrast CLINICAL HISTORY: 61 years old, male; Pain; Headache; Patient HX: 03-19-17; Additional info: Fall TECHNIQUE: Axial computed tomography images of the head/brain without intravenous contrast. This CT exam was performed using one or more of the following dose reduction techniques: automated exposure control, adjustment of the mA and/or kV according to patient size, and/or use of iterative reconstruction technique. EXAM DATE/TIME: Exam ordered 04/19/2017 7:30 PM COMPARISON: CT - HEAD W/O CONTRAST 03/19/2017 9:07:41 PM FINDINGS: Brain: Basal ganglia calcifications are noted bilaterally. No hemorrhage. No significant white matter disease. No edema. Ventricles: Unremarkable. No ventriculomegaly. Bones/joints: There is an old fracture of the left zygoma. There is an old fracture of the lateral wall of the left orbit. There is a defect noted in the right lamina papyracea which may be related to old trauma. Soft tissues: Unremarkable. Sinuses: There is an air-fluid level within the right posterior ethmoid air cell.. Mastoid air cells: Unremarkable as visualized. No mastoid effusion. IMPRESSION: 1. No acute findings in the brain. 2. Old fractures of the left side along the lateral wall of the left orbit. Defect in the right lamina papyracea may be related to old fracture 3. Air-fluid level in the right posterior ethmoid air cell suggest acute sinusitis
--- NOTE | 2017-04-19 20:46 | CT ---
EXAM: CT Cervical Spine Without Intravenous Contrast CLINICAL HISTORY: 61 years old, male; Pain; Neck pain; Patient HX: 5-4-17; Additional info: Fall TECHNIQUE: Axial computed tomography images of the cervical spine without intravenous contrast. This CT exam was performed using one or more of the following dose reduction techniques: automated exposure control, adjustment of the mA and/or kV according to patient size, and/or use of iterative reconstruction technique. Coronal and sagittal reformatted images were created and reviewed. EXAM DATE/TIME: Exam ordered 04/19/2017 7:32 PM COMPARISON: No relevant prior studies available. FINDINGS: Vertebrae: Unremarkable. No acute fracture. Discs/spinal canal/neural foramina: C1 2: Degenerative changes are noted between the anterior arch of C1 and the dens. Subchondral sclerosis and marginal osteophyte formation is present. C2-3: Mild facet disease. No stenosis. C3-4: There is advanced narrowing of the intervertebral disc with endplate sclerosis, subchondral cyst formation and anterior and posterior marginal osteophytes. Moderate bilateral foraminal stenosis. The canal centrally measures 9 mm in depth C4-5: There is narrowing of the intervertebral disc space with subchondral cyst formation and anterior posterior marginal osteophytes. There is a posterior disc osteophyte ridge. There is moderate foraminal stenosis bilaterally. The canal centrally measures 9 mm. C5-6: There is narrowing of the intervening disc space with endplate sclerosis, subchondral cyst formation and anteroposterior marginal osteophytes. Is a posterior disc osteophyte ridge. Marked uncovertebral hypertrophy is present. There is moderate to severe bilateral foraminal stenosis. The canal centrally measures 9 mm. C6-7: There is narrowing of the intervening disc space with endplate sclerosis, subchondral cyst formation and anteroposterior marginal osteophytes. There is moderate bilateral foraminal stenosis. There is no central stenosis. There is a moderately advanced uncovertebral hypertrophy. C7-T1: Unremarkable Sinuses: Mucosal thickening is noted within the left maxillary sinus. An air fluid level seen in the right posterior ethmoid air cell. Soft tissues: Unremarkable. Lung apices: Minimal paraseptal type emphysema is noted along the mediastinal surface of the right upper lobe. Bones: There is an old fracture of the left lateral wall of the orbit. A chronic fracture the left zygoma. There is a defect in the right lamina papyracea which suggest previous fracture. The patient is edentulous IMPRESSION: 1. No acute findings. 2. Moderately advanced degenerative disc disease with mild to moderate foraminal stenosis from C3-4 through C6-7. 3. Old fractures of the left zygoma, the lateral wall of the left orbit and the right lamina papyracea 4. Chronic sinusitis of the left maxillary sinus. Acute sinusitis suggested in a right posterior ethmoid air cell
[2017-04-20 02:25] VITALS: RESP 16
[2017-04-20 04:43] VITALS: BP 167/74; PULSE 92; TEMP 98.1
[2017-04-20 04:44] VITALS: O2SAT 99
--- NOTE | 2017-04-20 13:16 | RAD ---
Bilateral knees four views History: Fall. Comparison: None available. Findings: Right knee: Severe patellofemoral compartment joint space narrowing with subchondral sclerosis and osteophytosis. Prominent loose osteochondral body and/or rounded ossification seen at the anterior aspect of the femorotibial joint space near the patellar tendon on the lateral view. Productive change and or heterotopic bone anterior to the inferior patella and anterior tibial tubercle. Vascular calcifications. Mild to moderate medial and lateral compartment joint space narrowing of the femorotibial joint space. 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 Vascular calcifications. Moderate medial compartment joint space narrowing at the femorotibial joint space. Mild lateral compartment joint space narrowing at the femorotibial joint space. Severe patellofemoral compartment joint space narrowing with subchondral sclerosis and osteophytosis. Heterotopic bone and or productive change at the superior and inferior bony patella. Productive change at the anterior tibial tubercle. Rounded ossific density seen at the anterior aspect of the femorotibial joint space which may represent loose body and or intratendinous ossification at the level of the distal patellar tendon. Impression: Right knee: Severe patellofemoral compartment joint space narrowing with subchondral sclerosis and osteophytosis. Prominent loose osteochondral body and/or rounded ossification seen at the anterior aspect of the femorotibial joint space near the patellar tendon on the lateral view. Productive change and or heterotopic bone anterior to the inferior patella and anterior tibial tubercle. Vascular calcifications. Mild to moderate medial and lateral compartment joint space narrowing of the femorotibial joint space. 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 Vascular calcifications. Moderate medial compartment joint space narrowing at the femorotibial joint space. Mild lateral compartment joint space narrowing at the femorotibial joint space. Severe patellofemoral compartment joint space narrowing with subchondral sclerosis and osteophytosis. Heterotopic bone and or productive change at the superior and inferior bony patella. Productive change at the anterior tibial tubercle. Rounded ossific density seen at the anterior aspect of the femorotibial joint space which may represent loose body and or intratendinous ossification at the level of the distal patellar tendon. If pain persists, consider MRI.
== END 2017-04-20 04:39 | disposition home or self-care (01) ==
LOC: C.ER 19:13 → C.9OBSV 20:47
PROVIDERS: ADMIT Student in an Organized Health Care Education/Training Program; ATTEND Student in an Organized Health Care Education/Training Program
DX: F10.129 Alcohol abuse with intoxication, unspecified (principal); I10 Essential (primary) hypertension; S09.90XA Unspecified injury of head, initial encounter; W19.XXXA Unspecified fall, initial encounter; Y90.9 Presence of alcohol in blood, level not specified
CPT/HCPCS: 70450; 72125; 73562; 90471; 90715; G0378

== ENCOUNTER 2017-05-06 14:55 | Emergency (ER) | payer MEDICAID ==
[2017-05-06 14:56] VITALS: BMI 24.8
[2017-05-06] MEDS ORDERED: Sodium Chloride 0.9% 1,000 ML IV ONE (15:21)
--- NOTE | 2017-05-06 15:39 | C.PDOC ---
Addendum entered and electronically signed by Carmen Celestin APN 05/06/17 18:33: Physician Patient Turnover Patient Signed Over To: Chriss Kirk Handoff Comments: pending sobriety Original Note: History Of Present Illness <Carmen Celestin - Last Filed: 05/06/17 18:33> <Chriss Kirk - Last Filed: 05/07/17 04:25> 61 y/o male brought to ED by BLS with complaints of vomiting and abdominal pain. Patient has Hx of ETOH abuse and reports last drink 4 hours ago. Patient denies fever, chills, n/v/d or any other complaints at this time. (Carmen Celestin) History Per: Patient History/Exam Limitations: no limitations Onset/Duration Of Symptoms: Hrs Current Symptoms Are (Timing): Still Present <Carmen Celestin - Last Filed: 05/06/17 18:33> <Chriss Kirk - Last Filed: 05/07/17 04:25> Time Seen by Provider: 05/06/17 15:12 Chief Complaint (Nursing): GI Problem Past Medical History - Medical History PMH: Arthritis (B/L KNEE PAIN), Depression, Gastritis, HTN, Pancreatitis, Peripheral Edema Denies: Seizures Surgical History: Family History: States: Unknown Family Hx - Social History Hx Tobacco Use: No (quit 2 months now) Hx Alcohol Use: Yes Hx Substance Use: No - Immunization History Hx Tetanus Toxoid Vaccination: No Hx Influenza Vaccination: No Hx Pneumococcal Vaccination: No <Carmen Celestin - Last Filed: 05/06/17 18:33> Review Of Systems Except As Marked, All Systems Reviewed And Found Negative. Constitutional: Negative for: Fever, Chills Gastrointestinal: Positive for: Abdominal Pain. Negative for: Nausea, Vomiting , Diarrhea Musculoskeletal: Negative for: Back Pain Skin: Negative for: Rash Psych: Negative for: Anxiety <Carmen Celestin - Last Filed: 05/06/17 18:33> Physical Exam - Physical Exam Appears: Unkempt, Other (ETOH odor and on breath) Skin: Normal Color, Warm, No Rash Head: Atraumatic Oral Mucosa: Moist Chest: Symmetrical Cardiovascular: Rhythm Regular Respiratory: Normal Breath Sounds, No Rales, No Rhonchi, No Wheezing Gastrointestinal/Abdominal: Soft, No Tenderness, No Guarding, No Rebound Neurological/Psych: Oriented x3, Normal Speech <Carmen Celestin - Last Filed: 05/06/17 18:33> ED Course And Treatment - Laboratory Results Result Diagrams: 05/06/17 15:58 05/06/17 15:58 Lab Interpretation: No Acute Changes ECG: Interpreted By Me ECG Rhythm: Sinus Rhythm, 1st Degree HB ECG Interpretation: No Acute Changes Rate From EC O2 Sat by Pulse Oximetry: 95 (RA) Pulse Ox Interpretation: Normal Progress Note: treated with IVF NSS <Carmen Celestin - Last Filed: 05/06/17 18:33> - Laboratory Results Result Diagrams: 05/06/17 15:58 05/06/17 15:58 <Chriss Kirk - Last Filed: 05/07/17 04:25> Medical Decision Making <Carmen Celestin - Last Filed: 05/06/17 18:33> <Chriss Kirk - Last Filed: 05/07/17 04:25> Medical Decision Making: Plan: * Blood work * Sari Denton (Carmen Celestin) Disposition - Disposition Disposition Time: 19:00 <Carmen Celestin - Last Filed: 05/06/17 18:33> Counseled Patient/Family Regarding: Diagnosis - Disposition Disposition Time: 04:24 - POA Present On Arrival: None <Chriss Kirk - Last Filed: 05/07/17 04:25> - Disposition Referrals: [facility] [Outside] Disposition: HOME/ ROUTINE Condition: STABLE Forms: [facility] (Finnish) - Clinical Impression Clinical Impression: Alcohol abuse, Alcohol intoxication - Scribe Statement The provider has reviewed the documentation as recorded by the Scribe <Carmen Celestin - Last Filed: 05/06/17 18:33> <Chriss Kirk - Last Filed: 05/07/17 04:25> - Scribe Statement Israel Weaver All medical record entries made by the Scribe were at my direction and personally dictated by me. I have reviewed the chart and agree that the record accurately reflects my personal performance of the history, physical exam, medical decision making, and the department course for this patient. I have also personally directed, reviewed, and agree with the discharge instructions and disposition. (Carmen Celestin)
[2017-05-06 16:03] LABS: EOS % 1.9 % (0.0-4.0); HEMATOCRIT 27.6 % (35.0-51.0); LYMPH % 47.4 % (20.0-40.0); MEAN CELL VOLUME 98.1 fL (80.0-94.0); MEAN CORPUSCULAR HEMOGLOBIN 32.8 pg (27.0-31.0); MEAN CORPUSCULAR HGB CONC 33.4 g/dL (33.0-37.0); MEAN PLATELET VOLUME 8.2 fL (7.2-11.7); MONO # 0.3 K/uL (0.0-0.8); MONO % 15.6 % (0.0-10.0); NRBC % 0.4 % (0.0-2.0); RED CELL DISTRIBUTION WIDTH 16.1 % (11.5-14.5); WHITE BLOOD COUNT 2.2 K/uL (4.8-10.8)
[2017-05-06 16:11] LABS: CHLORIDE 100 mmol/L (98-107); SODIUM 145 mmol/L (132-148)
[2017-05-06 16:12] LABS: POTASSIUM 4.1 mmol/L (3.6-5.2)
[2017-05-06 16:14] LABS: ALB/GLOB RATIO 1.3 (1.0-2.1); ALKALINE PHOSPHATASE 55 U/L (38-126); AST/SGOT 118 U/L (17-59); BILIRUBIN,TOTAL 0.5 mg/dL (0.2-1.3); BLOOD UREA NITROGEN 17 mg/dL (9-20); CARBON DIOXIDE 25 mmol/L (22-30); GFR AFRICAN-AMERICAN > 60; TOTAL PROTEIN 7.8 g/dL (6.3-8.3)
[2017-05-06 16:15] LABS: ALT/SGPT 37 U/L (21-72); CALCIUM 8.3 mg/dl (8.6-10.4); GLUCOSE,RANDOM 99 mg/dL (75-110)
[2017-05-06 16:27] LABS: ALCOHOL SERUM 457 mg/dl (0-10)
[2017-05-06 23:34] LABS: RBC URINE 13 /hpf (0-3); TRANSITIONAL EPITHIAL < 1 /hpf (0-3); URINE BACTERIA RARE (<OCC); URINE BILIRUBIN NEGATIVE (NEGATIVE); URINE BLOOD 1+ (NEGATIVE); URINE COLOR Yellow (YELLOW); URINE GLUCOSE (UA) NORMAL (Normal); URINE KETONE TRACE mg/dL (NEGATIVE); URINE LEUKOCYTE ESTERASE NEG Leu/uL (Negative); URINE PROTEIN 1+ mg/dL (NEGATIVE); URINE UROBILINOGEN NORMAL mg/dL (0.2-1.0); WBC URINE 2 /hpf (0-5)
[2017-05-07 06:23] VITALS: BP 153/80; PULSE 58; RESP 20; TEMP 97.3; O2SAT 100
--- NOTE | 2017-05-19 20:22 | CARD ---
APPROVED REPORT EKG Measurement Heart [id number] <Conclusion> Sinus rhythm with 1st degree AV block Nonspecific T wave abnormality Abnormal ECG
== END 2017-05-07 07:12 | disposition home or self-care (01) ==
LOC: C.ER 14:55
DX: F10.120 Alcohol abuse with intoxication, uncomplicated (principal); Y90.8 Blood alcohol level of 240 mg/100 ml or more
CPT/HCPCS: 80053; 80320; 81001; 83690; 84484; 85025; 96361; 96374; 96375; 99285; J2405; J7040

== ENCOUNTER 2017-05-23 21:32 | Observation (INO) | payer MEDICAID ==
[2017-05-23 21:33] VITALS: BMI 24.8
[2017-05-23 22:39] LABS: BASO # 0.1 K/uL (0.0-0.2); BASO % 2.9 % (0.0-2.0); EOS % 2.6 % (0.0-4.0); HEMATOCRIT 29.6 % (35.0-51.0); LYMPH # 0.8 K/uL (1.0-4.3); LYMPH % 44.7 % (20.0-40.0); MEAN CELL VOLUME 98.3 fL (80.0-94.0); MEAN CORPUSCULAR HEMOGLOBIN 32.4 pg (27.0-31.0); MEAN PLATELET VOLUME 9.8 fL (7.2-11.7); MONO # 0.3 K/uL (0.0-0.8); MONO % 14.8 % (0.0-10.0); NRBC % 0.5 % (0.0-2.0); RED CELL DISTRIBUTION WIDTH 14.4 % (11.5-14.5)
[2017-05-23 22:45] LABS: CHLORIDE 95 mmol/L (98-107)
[2017-05-23 22:46] LABS: POTASSIUM 4.5 mmol/L (3.6-5.2); SODIUM 143 mmol/L (132-148)
[2017-05-23 22:47] LABS: WHITE BLOOD COUNT 1.8 K/uL (4.8-10.8)
[2017-05-23 22:48] LABS: ALB/GLOB RATIO 1.2 (1.0-2.1); ALKALINE PHOSPHATASE 70 U/L (38-126); AST/SGOT 478 U/L (17-59); BILIRUBIN,TOTAL 1.3 mg/dL (0.2-1.3); CARBON DIOXIDE 18 mmol/L (22-30); GFR AFRICAN-AMERICAN > 60; TOTAL PROTEIN 8.9 g/dL (6.3-8.3)
[2017-05-23 22:49] LABS: ALT/SGPT 78 U/L (21-72); BLOOD UREA NITROGEN 21 mg/dL (9-20); GLUCOSE,RANDOM 84 mg/dL (75-110)
--- NOTE | 2017-05-23 23:01 | C.PDOC ---
History Of Present Illness 61 year old male presents to the ED for evaluation of unwitnessed syncopal episode. Patient admits to drink tonight, approximately half a liter of vodka, and "passed out." He has had a recent cardiac work up about five months ago. Patient denies chest pain, shortness of breath, fever or chills. Time Seen by Provider: 05/23/17 21:46 Chief Complaint (Nursing): Chest Pain History Per: Patient History/Exam Limitations: no limitations Onset/Duration Of Symptoms: Unknown Current Symptoms Are (Timing): Gone Quality: "Pain" Associated Symptoms: Syncope (as per patient, he "passed out." ). denies: Nausea, Dyspnea, Diaphoresis Recent travel outside of the [place]: No Past Medical History Reviewed: Historical Data, Nursing Documentation, Vital Signs Vital Signs: Last Vital Signs Temp 97.2 F L 05/24/17 06:02 Pulse 70 05/24/17 06:02 Resp 14 05/24/17 06:02 BP 132/90 05/24/17 06:02 Pulse Ox 96 05/24/17 06:02 - Medical History PMH: Arthritis (B/L KNEE PAIN), CHF, Depression, Gastritis, HTN, Pancreatitis, Peripheral Edema Surgical History: - [facility] Procedures ALCOHOL DETOXIFICATION (05/03/13) DETOXIFICATION SERVICES FOR SUBSTANCE ABUSE TREATMENT (03/20/17) EXCISION OF DESCENDING COLON, ENDO, DIAGN (03/14/16) EXCISION OF STOMACH, ENDO, DIAGN (11/26/16) EXTIRPATION OF MATTER FROM LARGE INTESTINE, ENDO (01/09/17) GROUP PSYCHOTHERAPY (01/24/16) INSERT OF MONITOR DEV INTO CHEST SUBCU/FASCIA, OPEN APPROACH (12/18/16) MEASURE OF ARTERIAL PRESSURE, PERIPHERAL, CLINICAL PROJECT COORDINATOR APPROACH (12/18/16) MEASUREMENT OF CARDIAC RHYTHM, EXTERNAL APPROACH (12/18/16) TRANSFUSE NONAUT RED BLOOD CELLS IN PERIPH ART, PERC (01/09/17) TRANSFUSE NONAUT RED BLOOD CELLS IN PERIPH VEIN, PERC (07/28/16) Family History: States: Unknown Family Hx - Social History Hx Tobacco Use: No (quit 2 months now) Hx Alcohol Use: Yes Hx Substance Use: No - Immunization History Hx Tetanus Toxoid Vaccination: No Hx Influenza Vaccination: No Hx Pneumococcal Vaccination: No Review Of Systems Constitutional: Negative for: Fever, Chills Cardiovascular: Negative for: Chest Pain, Palpitations Respiratory: Negative for: Cough, Shortness of Breath Gastrointestinal: Negative for: Nausea, Vomiting, Abdominal Pain, Diarrhea Physical Exam - Physical Exam Appears: Non-toxic, No Acute Distress Skin: Warm, Dry Head: Atraumatic Eye(s): bilateral: Normal Inspection, PERRL, EOMI Oral Mucosa: Moist Neck: Supple Chest: Symmetrical, No Deformity Cardiovascular: Other (Patient is bradycardic ) Respiratory: Normal Breath Sounds, No Rales, No Rhonchi, No Wheezing Gastrointestinal/Abdominal: Soft, No Tenderness, No Distention, No Guarding, No Rebound Extremity: Normal ROM, No Tenderness Neurological/Psych: Oriented x3, Normal Speech, Normal Cognition, Normal Motor, Normal Sensation ED Course And Treatment - Laboratory Results Result Diagrams: 05/23/17 22:34 05/23/17 22:34 ECG Rhythm: Sinus Bradycardia Rate From EC O2 Sat by Pulse Oximetry: 99 (room air ) Progress Note: EKG, CXR, and labs were ordered. ED OBSERVATION Date of observation admission: 05/24/17 Time of observation admission: 00:31 - Observation admission statement Patient is being placed in observation because:: patient is intoxicated. - Goals of Observation Goals of observation are:: sobriety. Disposition - Disposition Disposition: HOME/ ROUTINE Disposition Time: 05:30 Condition: IMPROVED - Clinical Impression Clinical Impression: Alcohol abuse - Scribe Statement The provider has reviewed the documentation as recorded by the Agustinibcamacho Hussein All medical record entries made by the Agustinibcamacho were at my direction and personally dictated by me. I have reviewed the chart and agree that the record accurately reflects my personal performance of the history, physical exam, medical decision making, and the department course for this patient. I have also personally directed, reviewed, and agree with the discharge instructions and disposition.
[2017-05-24 06:02] VITALS: TEMP 97.2
--- NOTE | 2017-05-24 08:41 | RAD ---
PROCEDURE: CHEST RADIOGRAPH, 1 VIEW HISTORY: chest pain COMPARISON: Portable chest 03/17/2017 FINDINGS: LUNGS: Inspiratory volume appears diminished with crowding of the bronchovascular markings at the bilateral bases. However, there is no infiltrate identified bilaterally. PLEURA: No pneumothorax or pleural fluid seen. CARDIOVASCULAR: Normal. OSSEOUS STRUCTURES: No significant abnormalities. VISUALIZED UPPER ABDOMEN: Normal. OTHER FINDINGS: None. IMPRESSION: Diminished inspiratory volume. No acute infiltrate or pleural effusion identified in the interval.
[2017-05-24 09:59] VITALS: BP 119/86; PULSE 68; RESP 22; O2SAT 96
--- NOTE | 2017-05-25 12:28 | CARD ---
APPROVED REPORT EKG Measurement Heart [id number] <Conclusion> Poor data quality, interpretation may be adversely affected Atrial fibrillation with slow ventricular response Nonspecific ST and T wave abnormality Abnormal ECG
== END 2017-05-24 06:15 | disposition home or self-care (01) ==
LOC: C.ER 21:32 → C.9OBSV 05-24 00:31
PROVIDERS: ADMIT Emergency Medicine; ATTEND Emergency Medicine
DX: F10.120 Alcohol abuse with intoxication, uncomplicated (principal); R55 Syncope and collapse; I11.0 Hypertensive heart disease with heart failure; I50.9 Heart failure, unspecified; K85.90 Acute pancreatitis without necrosis or infection, unspecified; K29.70 Gastritis, unspecified, without bleeding; M17.0 Bilateral primary osteoarthritis of knee; F32.9 Major depressive disorder, single episode, unspecified
CPT/HCPCS: 71010; 80053; 80320; 84484; 85025; G0378

== ENCOUNTER 2017-05-28 16:22 | Inpatient (IN) | payer MEDICAID ==
[2017-05-28 16:22] VITALS: BMI 24.8
[2017-05-28] MEDS ORDERED: diaZEpam 10 mg/2 ml Inj IVP STA (16:35)
[2017-05-28] MEDS ORDERED: Sodium Chloride 0.9% 1,000 ML IV ONE (16:38)
--- NOTE | 2017-05-28 16:43 | C.PDOC ---
History Of Present Illness 61 yr old male presents to the ER with complaints of abdominal pain since waking up with multiple episodes of vomiting. Reports of constipation but is passing flatus. Patient states he is also withdrawing from alcohol, states he has not had alcohol today. Patient reports he was crossing the street and started to feel tremors in both his arms and fell to the ground but was caught by a family friend. Denies any head trauma or LOC. Also denies fever, chills, chest pain, SOB, dysuria, weakness or numbness. Time Seen by Provider: 05/28/17 16:26 Chief Complaint (Nursing): Abdominal Pain History Per: Patient History/Exam Limitations: no limitations Onset/Duration Of Symptoms: Sudden Onset (Since waking up) Past Medical History Reviewed: Historical Data, Nursing Documentation, Vital Signs Vital Signs: Last Vital Signs Temp 99.1 F 05/28/17 16:37 Pulse 85 05/28/17 16:37 Resp 20 05/28/17 16:37 BP 104/79 05/28/17 16:37 Pulse Ox 96 05/28/17 16:37 - Medical History PMH: Arthritis (B/L KNEE PAIN), CHF, Depression, Gastritis, HTN, Pancreatitis, Peripheral Edema Surgical History: - [facility] Procedures ALCOHOL DETOXIFICATION (05/03/13) DETOXIFICATION SERVICES FOR SUBSTANCE ABUSE TREATMENT (03/20/17) EXCISION OF DESCENDING COLON, ENDO, DIAGN (03/14/16) EXCISION OF STOMACH, ENDO, DIAGN (11/26/16) EXTIRPATION OF MATTER FROM LARGE INTESTINE, ENDO (01/09/17) GROUP PSYCHOTHERAPY (01/24/16) INSERT OF MONITOR DEV INTO CHEST SUBCU/FASCIA, OPEN APPROACH (12/18/16) MEASURE OF ARTERIAL PRESSURE, PERIPHERAL, SUPPLIER SPECIALIST APPROACH (12/18/16) MEASUREMENT OF CARDIAC RHYTHM, EXTERNAL APPROACH (12/18/16) TRANSFUSE NONAUT RED BLOOD CELLS IN PERIPH ART, PERC (01/09/17) TRANSFUSE NONAUT RED BLOOD CELLS IN PERIPH VEIN, PERC (07/28/16) Family History: States: No Known Family Hx - Social History Hx Tobacco Use: No (quit 2 months now) Hx Alcohol Use: Yes Hx Substance Use: No - Immunization History Hx Tetanus Toxoid Vaccination: No Hx Influenza Vaccination: No Hx Pneumococcal Vaccination: No Review Of Systems Except As Marked, All Systems Reviewed And Found Negative. Constitutional: Negative for: Fever, Chills Cardiovascular: Negative for: Chest Pain Respiratory: Negative for: Shortness of Breath Gastrointestinal: Positive for: Abdominal Pain, Constipation. Negative for: Nausea, Vomiting Genitourinary: Negative for: Dysuria Neurological: Negative for: Weakness, Numbness Physical Exam - Physical Exam Appears: Non-toxic, No Acute Distress Skin: Warm, Dry Head: Atraumatic, Normacephalic Eye(s): bilateral: Normal Inspection, PERRL, EOMI Oral Mucosa: Moist Tongue: Other (+fasciculations) Neck: Supple Chest: Symmetrical, No Tenderness Cardiovascular: Rhythm Regular, Other ((+) Tachy ) Respiratory: Normal Breath Sounds, No Rales, No Wheezing Gastrointestinal/Abdominal: Normal Exam, Soft, No Tenderness, No Guarding, No Rebound Extremity: No Tenderness, Other ((+) Bilateral arm tremors.) Neurological/Psych: Oriented x3, Normal Speech, Normal Motor ED Course And Treatment - Laboratory Results Result Diagrams: 05/28/17 16:56 05/28/17 16:56 Medical Decision Making Medical Decision Making: PLAN: * CBC * CMP * Urinalysis * Valium PO * Sodium Chloride IV 5:16PM EKG shows NSR at 86bpm with normal intervals and nonspecific ST changes. Labs significant for electrolyte abnormalities and ELISA (creatinine double baseline). IVF infusing. Patient withdrawing from alcohol. WIll need tele observation under PMD Dr. Rosen Disposition - Disposition Disposition: HOSPITALIZED Disposition Time: 18:12 Condition: FAIR - Clinical Impression Clinical Impression: Alcohol withdrawal, ELISA (acute kidney injury) - Scribe Statement The provider has reviewed the documentation as recorded by the Agustinibcamacho Singh Provider Attestation: All medical record entries made by the Ava were at my direction and personally dictated by me. I have reviewed the chart and agree that the record accurately reflects my personal performance of the history, physical exam, medical decision making, and the department course for this patient. I have also personally directed, reviewed, and agree with the discharge instructions and disposition.
[2017-05-28] MEDS ORDERED: Sodium Chloride 0.9% 1,000 ML ONE (16:49)
[2017-05-28] MEDS ORDERED: diaZEpam 10 mg/2 ml Inj ONE (16:50)
[2017-05-28 17:02] LABS: BASO % 0.9 % (0.0-2.0); EOS % 1.4 % (0.0-4.0); HEMATOCRIT 29.4 % (35.0-51.0); LYMPH # 0.8 K/uL (1.0-4.3); MEAN CELL VOLUME 96.8 fL (80.0-94.0); MEAN CORPUSCULAR HEMOGLOBIN 32.5 pg (27.0-31.0); MEAN CORPUSCULAR HGB CONC 33.6 g/dL (33.0-37.0); MEAN PLATELET VOLUME 10.4 fL (7.2-11.7); MONO # 0.4 K/uL (0.0-0.8); MONO % 12.2 % (0.0-10.0); NRBC % 0.2 % (0.0-2.0); RED CELL DISTRIBUTION WIDTH 14.3 % (11.5-14.5)
[2017-05-28 17:08] LABS: POTASSIUM 3.8 mmol/L (3.6-5.2)
[2017-05-28 17:10] LABS: ALB/GLOB RATIO 1.2 (1.0-2.1); BILIRUBIN,TOTAL 1.6 mg/dL (0.2-1.3); PHOSPHOROUS 1.9 mg/dL (2.5-4.5); TOTAL PROTEIN 8.4 g/dL (6.3-8.3)
[2017-05-28 17:11] LABS: CALCIUM 9.4 mg/dl (8.6-10.4)
[2017-05-28 17:12] LABS: MAGNESIUM 0.8 mg/dL (1.6-2.3)
[2017-05-28 17:13] LABS: WHITE BLOOD COUNT 3.1 K/uL (4.8-10.8)
[2017-05-28] MEDS ORDERED: Magnesium Sulfate 1 gm in D5W 1 GM/100 ML BAG IVPB ONE ×3 (17:14→20:54)
[2017-05-28] MEDS ORDERED: Potassium & Sodium Phosphate PO STA (17:14)
[2017-05-28] MEDS ORDERED: Sodium Chloride 0.9% 500 ML IV ONE ×2 (17:15→17:50)
[2017-05-28] MEDS: Dextrose 5%/0.45% NS 1,000 ML IV SCH (21:33)
[2017-05-28] MEDS: HYDROmorphone 1 mg/ml ISec IVP PRN (21:35)
[2017-05-28 22:58] LABS: RBC URINE < 1 /hpf (0-3); TRANSITIONAL EPITHIAL < 1 /hpf (0-3); URINE BACTERIA OCC (<OCC); URINE BILIRUBIN NEGATIVE (NEGATIVE); URINE BLOOD NEGATIVE (NEGATIVE); URINE COLOR Yellow (YELLOW); URINE GLUCOSE (UA) NORMAL (Normal); URINE KETONE TRACE mg/dL (NEGATIVE); URINE LEUKOCYTE ESTERASE TRACE Leu/uL (Negative); URINE PROTEIN 1+ mg/dL (NEGATIVE); WBC URINE 10 /hpf (0-5)
[2017-05-29] MEDS ORDERED: Magnesium Sulfate 1 gm in D5W 1 GM/100 ML BAG IVPB ONE (05:00)
[2017-05-29] MEDS: HYDROmorphone 1 mg/ml ISec IVP PRN ×3 (06:17→21:49)
[2017-05-29 06:23] LABS: BASO % 0.8 % (0.0-2.0); EOS # 0.1 K/uL (0.0-0.7); EOS % 3.3 % (0.0-4.0); LYMPH # 0.9 K/uL (1.0-4.3); LYMPH % 28.8 % (20.0-40.0); MEAN CELL VOLUME 98.2 fL (80.0-94.0); MEAN CORPUSCULAR HEMOGLOBIN 32.9 pg (27.0-31.0); MEAN CORPUSCULAR HGB CONC 33.5 g/dL (33.0-37.0); MEAN PLATELET VOLUME 10.4 fL (7.2-11.7); MONO # 0.4 K/uL (0.0-0.8); MONO % 12.3 % (0.0-10.0); NRBC % 0.1 % (0.0-2.0); RED CELL DISTRIBUTION WIDTH 14.5 % (11.5-14.5)
[2017-05-29 06:29] LABS: ALB/GLOB RATIO 1.4 (1.0-2.1); BILIRUBIN,TOTAL 1.2 mg/dL (0.2-1.3); CALCIUM 8.3 mg/dl (8.6-10.4); MAGNESIUM 1.9 mg/dL (1.6-2.3); PHOSPHOROUS 2.9 mg/dL (2.5-4.5); POTASSIUM 3.1 mmol/L (3.6-5.2); TOTAL PROTEIN 6.8 g/dL (6.3-8.3)
[2017-05-29] MEDS ORDERED: Potassium Chloride 20 mEq ER Tab PO ONE (09:45)
[2017-05-29] MEDS: Thiamine 100 mg/ml Inj IM SCH (09:55)
[2017-05-29] MEDS: Dextrose 5%/0.45% NS 1,000 ML IV SCH ×2 (10:00→17:36)
--- NOTE | 2017-05-29 14:11 | CP.PCM.PN ---
Subjective - Date & Time of Evaluation Date of Evaluation: 05/29/17 Time of Evaluation: 07:50 - Subjective Subjective: PGY2 Medicine Note- Dr. Rosen's service 61 year old male presented to the ED on 05/29/17 with complaints of recent falls. Patient states that he was walking on the street when his legs gave out. His family friend was passing by and stopped to catch him. Patient states that a similar occurrence happened just a few days earlier when he was cooking. He states that he has had at least 4 occurrences during the past couple of weeks. He denies head trauma with any of the incidents. Patient admits to drinking alcohol three days prior. He was not drinking at the time of the incident. He often ambulates with a cane. He denies chest pain, shortness of breath, nausea, vomiting or headaches at this time. PMHx- Anxiey PSHx- Loop recorder Fam Hx- Father had cancer Social Hx- Quit smoking 2 years ago. Prior to then, smoked 1 pack a week for 20 years, Denies drug use; Admits to alcohol use for over 40 years. He drinks 0.5- 1 pints of vodka a day. Allergies- Shellfish and Iodine- Anaphylaxis Meds: Vitamins PMD- None Objective - Vital Signs/Intake and Output Vital Signs (last 24 hours): Temp Pulse Resp BP Pulse Ox 97.7 F 60 20 139/84 98 05/29/17 07:55 05/29/17 07:55 05/29/17 07:55 05/29/17 07:55 05/29/17 07:55 - Medications Medications: Current Medications Hydromorphone HCl (Dilaudid) 1 mg IVP Q4H PRN PRN Reason: Pain, severe (8-10) Last Admin: 05/29/17 06:17 Dose: 1 mg Dextrose/Sodium Chloride (Dextrose 5%/0.45% Ns 1000 Ml) 1,000 mls @ 100 mls/hr IV .Q10H ALBERTO Last Admin: 05/29/17 10:00 Dose: 100 mls/hr Lorazepam (Ativan) 2 mg IVP Q4H PRN PRN Reason: Anxiety Pantoprazole Sodium (Protonix Inj) 40 mg IVP DAILY ALBERTO Last Admin: 05/29/17 09:54 Dose: 40 mg Pneumococcal Polyvalent Vaccine (Pneumovax 23 Vaccine) 0.5 ml IM .ONCE ONE Stop: 05/30/17 10:01 Thiamine HCl (Vitamin B1 Inj) 100 mg IM DAILY ALBERTO Last Admin: 05/29/17 09:55 Dose: 100 mg - Constitutional Appears: Non-toxic, No Acute Distress - Head Exam Head Exam: ATRAUMATIC, NORMAL INSPECTION, NORMOCEPHALIC - Eye Exam Eye Exam: EOMI, Normal appearance, PERRL Pupil Exam: NORMAL ACCOMODATION - ENT Exam ENT Exam: Mucous Membranes Moist - Neck Exam Neck Exam: Full ROM - Respiratory Exam Respiratory Exam: NORMAL BREATHING PATTERN. absent: Wheezes - Cardiovascular Exam Cardiovascular Exam: +S1, +S2 - GI/Abdominal Exam GI & Abdominal Exam: Soft, Normal Bowel Sounds - Extremities Exam Extremities Exam: Full ROM Additional comments: asterixis - Back Exam Back Exam: Full ROM - Neurological Exam Neurological Exam: Alert, Awake, Oriented x3 Neuro motor strength exam: Left Upper Extremity: 5, Right Upper Extremity: 5, Left Lower Extremity: 5, Right Lower Extremity: 5 Additional comments: finger to nose test ( normal), sensation intact with respect to temperature - Psychiatric Exam Psychiatric exam: Flat Affect, Normal Affect, Normal Mood - Skin Skin Exam: Dry, Normal Color, Warm Assessment and Plan - Assessment and Plan (Free Text) Assessment: Recurrent Falls Assessment & Plan: Likely due to recurrent use of alcohol. Patient counseled. Patient would benefit from PT/OT services Last echo- 12/16/16- Mild concentric LVH, Normal LV systolic dysfunction, EF >70% , LA borderline dilated, Grade I abnormal relation pattern Fall risk Protocol Status: Acute Alcohol abuse Assessment & Plan: Ativan 2 mg Q4 PRN for withdrawal Folic acid/thiamine on board Seizure precautions Fall precautions Status: Acute History of loop recorder Assessment & Plan: Loop recorder last interrogated 03/23/17- no abnormal cardiac activity Anemia Assessment & Plan: Hgb 8.7, patient's baseline hovers in the 8.5- 9.5 range Will continue to monitor Prophylactic measure Assessment & Plan: Heparin 5000u sc q12h PPI SCDs Discussed with Attending. All Medical management as per Dr. Rosen
[2017-05-30] MEDS: Dextrose 5%/0.45% NS 1,000 ML IV SCH ×2 (03:01→12:49)
[2017-05-30] MEDS: HYDROmorphone 1 mg/ml ISec IVP PRN ×5 (03:01→23:52)
--- NOTE | 2017-05-30 07:57 | CARD ---
APPROVED REPORT EKG Measurement Heart [id number] <Conclusion> Normal sinus rhythm Nonspecific ST and T wave abnormality Abnormal ECG
[2017-05-30] MEDS ORDERED: Pneumococcal 23-Valent Vaccine IM ONE (10:00)
[2017-05-30] MEDS: Thiamine 100 mg/ml Inj IM SCH (10:19)
[2017-05-31] MEDS: HYDROmorphone 1 mg/ml ISec IVP PRN ×3 (11:09→21:30)
[2017-05-31] MEDS: Thiamine 100 mg/ml Inj IM SCH (11:10)
[2017-05-31] MEDS: Dextrose 5%/0.45% NS 1,000 ML IV SCH ×3 (11:11→21:42)
[2017-05-31 12:18] LABS: CHLORIDE 94 mmol/L (98-107); SODIUM 136 mmol/L (132-148)
[2017-05-31 12:19] LABS: POTASSIUM 3.1 mmol/L (3.6-5.2)
[2017-05-31 12:21] LABS: ALB/GLOB RATIO 1.3 (1.0-2.1); ALKALINE PHOSPHATASE 50 U/L (38-126); ALT/SGPT 48 U/L (21-72); AST/SGOT 126 U/L (17-59); BILIRUBIN,TOTAL 0.8 mg/dL (0.2-1.3); BLOOD UREA NITROGEN 9 mg/dL (9-20); CARBON DIOXIDE 32 mmol/L (22-30); GFR AFRICAN-AMERICAN > 60; GLUCOSE,RANDOM 100 mg/dL (75-110); TOTAL PROTEIN 6.8 g/dL (6.3-8.3)
[2017-05-31 12:22] LABS: CALCIUM 8.5 mg/dl (8.6-10.4)
[2017-05-31] MEDS: Potassium Chloride 20 mEq ER Tab PO SCH ×2 (14:57→18:25)
[2017-05-31] MEDS ORDERED: Potassium Chloride 20 mEq ER Tab PO SCH (18:00)
[2017-06-01] MEDS: HYDROmorphone 1 mg/ml ISec IVP PRN ×6 (02:43→23:52)
[2017-06-01] MEDS: Dextrose 5%/0.45% NS 1,000 ML IV SCH ×2 (09:20→17:09)
[2017-06-01] MEDS: Thiamine 100 mg/ml Inj IM SCH (09:21)
[2017-06-01] MEDS: Potassium Chloride 20 mEq ER Tab PO SCH ×2 (09:21→17:08)
[2017-06-02] MEDS: Dextrose 5%/0.45% NS 1,000 ML IV SCH ×3 (03:43→23:39)
[2017-06-02] MEDS: HYDROmorphone 1 mg/ml ISec IVP PRN ×4 (05:29→19:12)
[2017-06-02] MEDS: Potassium Chloride 20 mEq ER Tab PO SCH ×2 (09:26→17:22)
[2017-06-02 11:27] LABS: BASO % 1.7 % (0.0-2.0); EOS # 0.1 K/uL (0.0-0.7); EOS % 3.2 % (0.0-4.0); HEMATOCRIT 25.1 % (35.0-51.0); LYMPH # 0.6 K/uL (1.0-4.3); MEAN CELL VOLUME 98.2 fL (80.0-94.0); MEAN CORPUSCULAR HEMOGLOBIN 32.4 pg (27.0-31.0); MEAN PLATELET VOLUME 9.6 fL (7.2-11.7); MONO # 0.8 K/uL (0.0-0.8); MONO % 31.7 % (0.0-10.0); NRBC % 0.1 % (0.0-2.0); PLATELET COUNT 149 K/uL (130-400); RED CELL DISTRIBUTION WIDTH 14.6 % (11.5-14.5); WHITE BLOOD COUNT 2.6 K/uL (4.8-10.8)
[2017-06-02 11:46] LABS: CHLORIDE 98 mmol/L (98-107); POTASSIUM 3.9 mmol/L (3.6-5.2); SODIUM 138 mmol/L (132-148)
[2017-06-02 11:48] LABS: AST/SGOT 94 U/L (17-59); BILIRUBIN,TOTAL 0.7 mg/dL (0.2-1.3); CARBON DIOXIDE 28 mmol/L (22-30); GFR AFRICAN-AMERICAN > 60
[2017-06-02 11:49] LABS: ALB/GLOB RATIO 1.3 (1.0-2.1); ALKALINE PHOSPHATASE 51 U/L (38-126); ALT/SGPT 50 U/L (21-72); BLOOD UREA NITROGEN 10 mg/dL (9-20); CALCIUM 8.6 mg/dl (8.6-10.4); EOSINOPHIL 2 % (0-4); GLUCOSE,RANDOM 98 mg/dL (75-110); NEUTROPHIL 47 % (50-75); PHOSPHOROUS 2.4 mg/dL (2.5-4.5); TOTAL CELLS COUNTED 100; TOTAL PROTEIN 6.8 g/dL (6.3-8.3)
[2017-06-02 11:51] LABS: LARGE PLATELETS PRESENT
[2017-06-02 12:05] LABS: MAGNESIUM 0.8 mg/dL (1.6-2.3)
[2017-06-02] MEDS: Thiamine 100 mg/ml Inj IM SCH (13:34)
--- NOTE | 2017-06-02 15:06 | CP.PCM.PN ---
Subjective - Date & Time of Evaluation Date of Evaluation: 06/02/17 Time of Evaluation: 09:12 - Subjective Subjective: PGY 2 Medicine Note- Dr. Rosen's service Pt seen and examined in no acute distress. Patient states that he has a poor appetite. Patient is a poor historian. He states that he has not interacted with physical therapy to date since admission however physical therapy worked with him over the weekend. At this time, patient denies subjective fevers or chills, nausea, vomiting,headaches or palpitations at this time. Objective - Vital Signs/Intake and Output Vital Signs (last 24 hours): Temp Pulse Resp BP Pulse Ox 98.3 F 77 18 107/69 97 06/02/17 07:25 06/02/17 07:25 06/02/17 07:25 06/02/17 07:25 06/02/17 07:25 Intake and Output: 06/02/17 06/02/17 06:59 18:59 Intake Total 1300 Output Total 925 Balance -925 1300 - Medications Medications: Current Medications Folic Acid (Folic Acid) 1 mg PO DAILY [facility] Last Admin: 06/02/17 09:25 Dose: 1 mg Hydromorphone HCl (Dilaudid) 1 mg IVP Q4H PRN PRN Reason: Pain, severe (8-10) Last Admin: 06/02/17 14:23 Dose: 1 mg Dextrose/Sodium Chloride (Dextrose 5%/0.45% Ns 1000 Ml) 1,000 mls @ 100 mls/hr IV .Q10H [facility] Last Admin: 06/02/17 14:26 Dose: 100 mls/hr Magnesium Sulfate/Dextrose (Magnesium Sulfate 1 Gm/100 Ml D5w) 1 gm in 100 mls @ 300 mls/hr IVPB Q30M [facility] Stop: 06/02/17 15:49 Sodium Phosphate 15 mmole/ (Sodium Chloride) 255 mls @ 50 mls/hr IVPB .Q5H6M ONE Stop: 06/02/17 20:04 Lorazepam (Ativan) 2 mg IVP Q4H PRN PRN Reason: Anxiety Last Admin: 05/30/17 10:25 Dose: 2 mg Pantoprazole Sodium (Protonix Inj) 40 mg IVP DAILY [facility] Last Admin: 06/02/17 09:25 Dose: 40 mg Potassium Chloride (K-Dur 20 Meq Er Tab) 20 meq PO BID [facility] Stop: 06/02/17 18:01 Last Admin: 06/02/17 09:26 Dose: 20 meq Thiamine HCl (Vitamin B1 Inj) 100 mg IM DAILY [facility] Last Admin: 06/02/17 13:34 Dose: 100 mg - Labs Labs: 06/02/17 11:19 06/02/17 11:19 APTT 26 SECONDS (21-34) 05/30/17 06:21 - Constitutional Appears: Non-toxic, No Acute Distress - Head Exam Head Exam: ATRAUMATIC, NORMAL INSPECTION, NORMOCEPHALIC - Eye Exam Eye Exam: EOMI, Normal appearance, PERRL Pupil Exam: NORMAL ACCOMODATION - ENT Exam ENT Exam: Mucous Membranes Moist, Normal Exam - Neck Exam Neck Exam: Full ROM - Respiratory Exam Respiratory Exam: NORMAL BREATHING PATTERN. absent: Wheezes - Cardiovascular Exam Cardiovascular Exam: +S1, +S2 Additional comments: palpable loop monitor on left anterior chest - GI/Abdominal Exam GI & Abdominal Exam: Soft, Normal Bowel Sounds - Extremities Exam Extremities Exam: Full ROM - Back Exam Back Exam: Full ROM - Neurological Exam Neurological Exam: Alert, Awake, Oriented x3 - Psychiatric Exam Psychiatric exam: Normal Affect, Normal Mood - Skin Skin Exam: Dry, Normal Color, Warm Assessment and Plan - Assessment and Plan (Free Text) Assessment: Recurrent Falls Assessment & Plan: Likely due to recurrent use of alcohol. Patient counseled. Patient would benefit from PT/OT services Physical therapy recommends continued therapy. Patient had some periods of prolonged rest between ambulation attempts. Last echo- 12/16/16- Mild concentric LVH, Normal LV systolic dysfunction, EF >70% , LA borderline dilated, Grade I abnormal relation pattern Fall risk Protocol Status: Acute Electrolyte Imbalance Assessment & Plan: Hypomagnesemia and Hypophosphatemia Repleted. Cont to monitor. Alcohol abuse Assessment & Plan: Ativan 2 mg Q4 PRN for withdrawal Folic acid/thiamine on board Seizure precautions Fall precautions Status: Acute History of loop recorder Assessment & Plan: Loop recorder last interrogated 03/23/17- no abnormal cardiac activity Anemia Assessment & Plan: Hgb 8.3, patient's baseline hovers in the 8.5- 9.5 range Will continue to monitor Prophylactic measure Assessment & Plan: Heparin 5000u sc q12h PPI SCDs Would benefit from rehab services Discussed with Attending. All Medical management as per Dr. Rosen
[2017-06-02] MEDS: Magnesium Sulfate 1 gm in D5W 1 GM/100 ML BAG IVPB SCH ×2 (15:19→16:40)
[2017-06-02 16:03] VITALS: RESP 20
[2017-06-02] MEDS ORDERED: Sodium Phosphate 15 MMOLE in Sodium Chloride 0.9% 250 ML IVPB ONE (16:30)
[2017-06-03] MEDS: HYDROmorphone 1 mg/ml ISec IVP PRN ×2 (00:58→08:42)
[2017-06-03 06:32] LABS: BASO # 0.1 K/uL (0.0-0.2); BASO % 2.1 % (0.0-2.0); EOS # 0.1 K/uL (0.0-0.7); EOS % 3.6 % (0.0-4.0); LYMPH # 0.8 K/uL (1.0-4.3); LYMPH % 29.3 % (20.0-40.0); MEAN CELL VOLUME 97.5 fL (80.0-94.0); MEAN CORPUSCULAR HEMOGLOBIN 32.7 pg (27.0-31.0); MEAN CORPUSCULAR HGB CONC 33.5 g/dL (33.0-37.0); MEAN PLATELET VOLUME 9.5 fL (7.2-11.7); MONO # 0.8 K/uL (0.0-0.8); MONO % 30.1 % (0.0-10.0); PLATELET COUNT 163 K/uL (130-400); RED CELL DISTRIBUTION WIDTH 14.4 % (11.5-14.5); WHITE BLOOD COUNT 2.7 K/uL (4.8-10.8)
[2017-06-03 07:30] LABS: CHLORIDE 100 mmol/L (98-107); SODIUM 134 mmol/L (132-148)
[2017-06-03 07:32] LABS: BILIRUBIN,TOTAL 0.6 mg/dL (0.2-1.3); GFR AFRICAN-AMERICAN > 60
[2017-06-03 07:33] LABS: ALB/GLOB RATIO 1.2 (1.0-2.1); ALKALINE PHOSPHATASE 51 U/L (38-126); ALT/SGPT 44 U/L (21-72); AST/SGOT 77 U/L (17-59); BLOOD UREA NITROGEN 11 mg/dL (9-20); CARBON DIOXIDE 26 mmol/L (22-30); GLUCOSE,RANDOM 109 mg/dL (75-110); PHOSPHOROUS 2.8 mg/dL (2.5-4.5); TOTAL PROTEIN 6.8 g/dL (6.3-8.3)
[2017-06-03 07:34] LABS: CALCIUM 8.6 mg/dl (8.6-10.4); MAGNESIUM 1.1 mg/dL (1.6-2.3)
[2017-06-03] MEDS: Dextrose 5%/0.45% NS 1,000 ML IV SCH (08:42)
[2017-06-03 08:51] LABS: EOSINOPHIL 2 % (0-4); METAMYELOCYTE 1 % (0-0); NEUTROPHIL 33 % (50-75); TOTAL CELLS COUNTED 100
[2017-06-03] MEDS: Thiamine 100 mg/ml Inj IM SCH (08:59)
[2017-06-03] MEDS: Magnesium Sulfate 1 gm in D5W 1 GM/100 ML BAG IVPB SCH ×2 (12:03→12:39)
[2017-06-03] MEDS ORDERED: Magnesium Sulfate 1 gm in D5W 1 GM/100 ML BAG IVPB SCH (13:00)
--- NOTE | 2017-06-03 15:52 | CP.PCM.PN ---
Subjective - Date & Time of Evaluation Date of Evaluation: 06/03/17 Time of Evaluation: 09:40 - Subjective Subjective: PGY2 medicine progress note for Dr. Rosen's service: Patient seen and examined. Patient states he feels well and is stronger on his feet. Patient admits to some nausea. Patient requesting to go home and would prefer to have home PT rather than go to [facility]. Objective - Vital Signs/Intake and Output Vital Signs (last 24 hours): Temp Pulse Resp BP Pulse Ox 98.6 F 76 20 169/87 H 98 06/03/17 07:00 06/03/17 07:00 06/03/17 07:00 06/03/17 07:00 06/03/17 07:00 Intake and Output: 06/03/17 06/03/17 06:59 18:59 Intake Total 1100 Output Total 900 Balance -900 1100 - Medications Medications: Current Medications Folic Acid (Folic Acid) 1 mg PO DAILY [facility] Last Admin: 06/03/17 08:59 Dose: 1 mg Heparin Sodium (Porcine) (Heparin) 5,000 units SC Q12 [facility] Last Admin: 06/03/17 08:59 Dose: 5,000 units Hydromorphone HCl (Dilaudid) 1 mg IVP Q4H PRN PRN Reason: Pain, severe (8-10) Last Admin: 06/03/17 08:42 Dose: 1 mg Dextrose/Sodium Chloride (Dextrose 5%/0.45% Ns 1000 Ml) 1,000 mls @ 100 mls/hr IV .Q10H [facility] Last Admin: 06/03/17 08:42 Dose: 100 mls/hr Lorazepam (Ativan) 2 mg IVP Q4H PRN PRN Reason: Anxiety Last Admin: 05/30/17 10:25 Dose: 2 mg Ondansetron HCl (Zofran Inj) 4 mg IVP Q6H PRN PRN Reason: Nausea/Vomiting Pantoprazole Sodium (Protonix Inj) 40 mg IVP DAILY [facility] Last Admin: 06/03/17 08:59 Dose: 40 mg Thiamine HCl (Vitamin B1 Inj) 100 mg IM DAILY [facility] Last Admin: 06/03/17 08:59 Dose: 100 mg - Labs Labs: 06/03/17 06:18 06/03/17 06:18 APTT 27 SECONDS (21-34) 06/03/17 06:18 - Constitutional Appears: Non-toxic, No Acute Distress - Head Exam Head Exam: ATRAUMATIC, NORMOCEPHALIC - Eye Exam Eye Exam: EOMI - ENT Exam ENT Exam: Mucous Membranes Moist - Respiratory Exam Respiratory Exam: Clear to Ausculation Bilateral, NORMAL BREATHING PATTERN - Cardiovascular Exam Cardiovascular Exam: +S1, +S2 - GI/Abdominal Exam GI & Abdominal Exam: Soft, Normal Bowel Sounds. absent: Tenderness - Extremities Exam Extremities Exam: Normal Inspection. absent: Pedal Edema - Neurological Exam Neurological Exam: Alert, Awake - Psychiatric Exam Psychiatric exam: Normal Affect - Skin Skin Exam: Dry, Warm Assessment and Plan - Assessment and Plan (Free Text) Assessment: Recurrent Falls Assessment & Plan: Likely due to recurrent use of alcohol. Patient counseled. Patient would benefit from PT/OT services- patient refusing [facility] but agrees to home physical therapy Physical therapy recommends continued therapy in TCU. Patient had some periods of prolonged rest between ambulation attempts. Last echo- 12/16/16- Mild concentric LVH, Normal LV systolic dysfunction, EF >70% , LA borderline dilated, Grade I abnormal relation pattern Fall risk Protocol Status: Acute Electrolyte Imbalance Assessment & Plan: Hypomagnesemia and Hypophosphatemia Repleted. Cont to monitor. Alcohol abuse Assessment & Plan: Ativan 2 mg Q4 PRN for withdrawal Folic acid/thiamine on board Seizure precautions Fall precautions Status: Acute History of loop recorder Assessment & Plan: Loop recorder last interrogated 03/23/17- no abnormal cardiac activity Anemia Assessment & Plan: Hgb 8.4, patient's baseline hovers in the 8.5- 9.5 range Will continue to monitor Prophylactic measure Assessment & Plan: Heparin 5000u sc q12h PPI SCDs Would benefit from rehab services Discussed with Attending. All Medical management as per Dr. Rosen Patient is stable for discharge home with physical therapy per Dr. Rosen. Patient is to follow up with Dr. Rosen within one week of discharge. Patient is to return to the ED if his symptoms worsen or reoccur. This was explained to the patient who understands and agrees.
[2017-06-03 16:18] VITALS: BP 141/78; PULSE 67; TEMP 98.4; O2SAT 99
== END 2017-06-03 16:00 | disposition home or self-care (01) | DRG 750 ==
LOC: C.ER 16:22 → C.9E 17:19 → C.6T 18:22 → OBSVTOIN 05-29 13:26
PROVIDERS: ADMIT Internal Medicine Pulmonary Disease; ATTEND Internal Medicine Pulmonary Disease
PROC: HZ2ZZZZ Detoxification Services for Substance Abuse Treatment (ICD-10-PCS; principal; 2017-05-29)
DX: F10.230 Alcohol dependence with withdrawal, uncomplicated (principal); N17.9 Acute kidney failure, unspecified; I11.0 Hypertensive heart disease with heart failure; I50.9 Heart failure, unspecified; E83.42 Hypomagnesemia; E83.39 Other disorders of phosphorus metabolism; F32.9 Major depressive disorder, single episode, unspecified; M17.0 Bilateral primary osteoarthritis of knee; Y90.0 Blood alcohol level of less than 20 mg/100 ml; Z87.891 Personal history of nicotine dependence; R29.6 Repeated falls; D64.9 Anemia, unspecified

== ENCOUNTER 2017-06-24 16:17 | Observation (INO) | payer MEDICAID ==
[2017-06-24 16:45] VITALS: BMI 24.4
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
[2017-06-24 17:07] LABS: BASO % 1.2 % (0.0-2.0); EOS # 0.1 K/uL (0.0-0.7); EOS % 3.4 % (0.0-4.0); LYMPH # 1.3 K/uL (1.0-4.3); LYMPH % 47.3 % (20.0-40.0); MEAN CELL VOLUME 97.4 fL (80.0-94.0); MEAN CORPUSCULAR HEMOGLOBIN 32.7 pg (27.0-31.0); MEAN CORPUSCULAR HGB CONC 33.5 g/dL (33.0-37.0); MEAN PLATELET VOLUME 8.8 fL (7.2-11.7); MONO # 0.4 K/uL (0.0-0.8); MONO % 14.7 % (0.0-10.0); NRBC % 0.3 % (0.0-2.0); RED CELL DISTRIBUTION WIDTH 15.2 % (11.5-14.5); WHITE BLOOD COUNT 2.8 K/uL (4.8-10.8)
[2017-06-24 17:16] LABS: CHLORIDE 99 mmol/L (98-107); SODIUM 144 mmol/L (132-148)
[2017-06-24 17:17] LABS: POTASSIUM 4.4 mmol/L (3.6-5.2)
[2017-06-24 17:19] LABS: ALB/GLOB RATIO 1.3 (1.0-2.1); ALKALINE PHOSPHATASE 67 U/L (38-126); ALT/SGPT 41 U/L (21-72); AST/SGOT 118 U/L (17-59); BILIRUBIN,TOTAL 0.6 mg/dL (0.2-1.3); BLOOD UREA NITROGEN 13 mg/dL (9-20); CALCIUM 8.3 mg/dl (8.6-10.4); CARBON DIOXIDE 22 mmol/L (22-30); GFR AFRICAN-AMERICAN > 60; GLUCOSE,RANDOM 80 mg/dL (75-110)
[2017-06-24 17:40] LABS: ALCOHOL SERUM 398 mg/dl (0-10)
--- NOTE | 2017-06-24 18:04 | CT ---
PROCEDURE: CT HEAD WITHOUT CONTRAST. HISTORY: R/O Bleed COMPARISON: Noncontrast head CT performed 04/19/17 TECHNIQUE: Axial computed tomography images were obtained through the head/brain without intravenous contrast. Radiation dose: Total exam DLP = 982.82 mGy-cm. This CT exam was performed using one or more of the following dose reduction techniques: Automated exposure control, adjustment of the mA and/or kV according to patient size, and/or use of iterative reconstruction technique. FINDINGS: HEMORRHAGE: No intracranial hemorrhage. BRAIN: No mass effect or edema. Bilateral basal ganglia calcifications. The saucedo-white matter differentiation appears intact. Please note that MRI with diffusion imaging is more sensitive in the detection of acute ischemic event. VENTRICLES: No hydrocephalus. CALVARIUM: Unremarkable. PARANASAL SINUSES: Unremarkable as visualized. No significant inflammatory changes. MASTOID AIR CELLS: Unremarkable as visualized. No inflammatory changes. OTHER FINDINGS: Chronic fracture deformities of the left zygoma and lateral wall left orbit. Defect re-identified involving the right lamina papyracea which may be related to old trauma. IMPRESSION: No acute intracranial pathology identified. Incidental findings as above.
--- NOTE | 2017-06-24 18:36 | RAD ---
HISTORY: SOB COMPARISON: 05/23/2017 TECHNIQUE: Chest PA and lateral FINDINGS: LUNGS: Hyperinflation, manifestations of COPD. No active pulmonary disease. PLEURA: No significant pleural effusion identified. No pneumothorax apparent. CARDIOVASCULAR: Normal. OSSEOUS STRUCTURES: No significant abnormalities. VISUALIZED UPPER ABDOMEN: Normal. OTHER FINDINGS: None. IMPRESSION: No active disease. No significant interval change compared to the prior examination(s).
[2017-06-24 18:55] VITALS: O2SAT 98
[2017-06-24 20:41] VITALS: BP 132/76; PULSE 82; RESP 20; TEMP 98
== END 2017-06-24 20:34 | disposition home or self-care (01) ==
LOC: C.ER 16:17 → C.9OBSV 18:22
PROVIDERS: ADMIT Emergency Medicine; ATTEND Emergency Medicine
DX: F10.10 Alcohol abuse, uncomplicated (principal); I11.0 Hypertensive heart disease with heart failure; I50.9 Heart failure, unspecified; Z87.11 Personal history of peptic ulcer disease
CPT/HCPCS: 70450; 71020; 80053; 80320; 82553; 82948; 83690; 84484; 85025; 99285; G0378

== ENCOUNTER 2017-06-26 18:17 | Observation (INO) | payer MEDICAID ==
[2017-06-26 18:17] VITALS: BMI 24.8
[2017-06-26 18:31] VITALS: BP 131/82; RESP 18; TEMP 97.9; O2SAT 95
[2017-06-26 18:55] VITALS: PULSE 67
--- NOTE | 2017-06-26 21:33 | C.PDOC ---
History Of Present Illness 61 year old male with a history of alcohol use disorder and pancreatitis was brought to the ED by EMS after being found publicly intoxicated and stuporous. No evidence of cardiac etiology for somnolence and intoxication. Patient denies any physical complaints, suicidal, or homicidal ideations. Time Seen by Provider: 06/26/17 18:58 Chief Complaint (Nursing): Substance Abuse History Per: Patient, EMS History/Exam Limitations: no limitations Suicide/Self Injury Attempted (Context): None Modifying Factor(s): Alcohol Severity: None Pain Scale Rating Of: 0 Associated Symptoms: denies: Suicidal Thoughts, Suicidal Plan Involuntary Hold By: None Recent travel outside of the [place]: No Past Medical History Reviewed: Historical Data, Nursing Documentation, Vital Signs Vital Signs: Last Vital Signs Temp 97.9 F 06/26/17 18:30 Pulse 67 06/26/17 18:41 Resp 18 06/26/17 18:30 BP 131/82 06/26/17 18:41 Pulse Ox 95 06/26/17 21:52 - Medical History PMH: Anemia, Anxiety, Arthritis, CHF, Depression, Gastritis, Gastrointestinal Ulcer (PEPTIC), HTN, Pancreatitis, Peripheral Edema Surgical History: - [facility] Procedures ALCOHOL DETOXIFICATION (05/03/13) DETOXIFICATION SERVICES FOR SUBSTANCE ABUSE TREATMENT (05/29/17) EXCISION OF DESCENDING COLON, ENDO, DIAGN (03/14/16) EXCISION OF STOMACH, ENDO, DIAGN (11/26/16) EXTIRPATION OF MATTER FROM LARGE INTESTINE, ENDO (01/09/17) GROUP PSYCHOTHERAPY (01/24/16) INSERT OF MONITOR DEV INTO CHEST SUBCU/FASCIA, OPEN APPROACH (12/18/16) MEASURE OF ARTERIAL PRESSURE, PERIPHERAL, SUBSTATION MANAGER APPROACH (12/18/16) MEASUREMENT OF CARDIAC RHYTHM, EXTERNAL APPROACH (12/18/16) TRANSFUSE NONAUT RED BLOOD CELLS IN PERIPH ART, PERC (01/09/17) TRANSFUSE NONAUT RED BLOOD CELLS IN PERIPH VEIN, PERC (07/28/16) Family History: States: Unknown Family Hx - Social History Hx Tobacco Use: No (quit 2 months now) Hx Alcohol Use: Yes (1/2 pint vodka/day) Hx Substance Use: No - Immunization History Hx Tetanus Toxoid Vaccination: No Hx Influenza Vaccination: No Hx Pneumococcal Vaccination: No Review Of Systems Constitutional: Negative for: Fever, Chills Cardiovascular: Negative for: Chest Pain, Palpitations Respiratory: Negative for: Cough, Shortness of Breath Gastrointestinal: Negative for: Nausea, Vomiting Physical Exam - Physical Exam Appears: Non-toxic, No Acute Distress, Other (patient is a tall, thin, black male with EtOH on breath ) Skin: Warm, Dry Head: Atraumatic, Normacephalic Eye(s): bilateral: Normal Inspection, PERRL, EOMI Oral Mucosa: Moist Neck: Supple Chest: Symmetrical, No Deformity, Other (cardiac device SubQ chest) Cardiovascular: Rhythm Regular, No Murmur Respiratory: Normal Breath Sounds, No Rales, No Rhonchi, No Wheezing Gastrointestinal/Abdominal: Soft, No Tenderness, No Distention, No Guarding, No Rebound Extremity: Normal ROM, No Tenderness DTR: Ankle (R): 0 Neurological/Psych: Oriented x3 ED Course And Treatment O2 Sat by Pulse Oximetry: 95 (RA) Reevaluation Time: 21:32 Reassessment Condition: Improved (ambulating freely through ED, wants d/c to street) Medical Decision Making Medical Decision Making: typical etoh abuse, no cardiac issues today. ED OBSERVATION Date of observation admission: 06/26/17 Time of observation admission: 19:00 - Observation admission statement Patient is being placed in observation because:: Patient is intoxicated. - Goals of Observation Goals of observation are:: Sobriety. - Progress Note Progress Note: 06/26/17 20:48 Patient is resting comfortably and is easily arousable. Disposition Doctor Will See Patient In The: Office Counseled Patient/Family Regarding: Studies Performed, Diagnosis - Disposition Disposition: HOME/ ROUTINE Disposition Time: 21:33 Condition: GOOD - Clinical Impression Clinical Impression: Alcohol abuse - Scribe Statement The provider has reviewed the documentation as recorded by the Scribe Mya Hussein All medical record entries made by the Agustinibcamacho were at my direction and personally dictated by me. I have reviewed the chart and agree that the record accurately reflects my personal performance of the history, physical exam, medical decision making, and the department course for this patient. I have also personally directed, reviewed, and agree with the discharge instructions and disposition.
== END 2017-06-26 21:32 | disposition home or self-care (01) ==
LOC: C.ER 18:17 → C.9OBSV 19:10
PROVIDERS: ADMIT Internal Medicine; ATTEND Internal Medicine
DX: F10.10 Alcohol abuse, uncomplicated (principal)
CPT/HCPCS: 82948; 99285; G0378

== ENCOUNTER 2017-06-29 15:58 | Emergency (ER) | payer MEDICAID ==
[2017-06-29 16:33] VITALS: BMI 25.5
[2017-06-29 16:35] VITALS: TEMP 97.4; O2SAT 97
--- NOTE | 2017-06-29 17:54 | C.PDOC ---
History Of Present Illness 61 year old male with a history of alcohol abuse presents to the ED with complaints of generalized weakness after drinking. He admits to beginning to drink Vodka at 7am today. Patient has presented many times to this ED for similar complaints. He denies any focal injuries, abdominal pain, nausea, or vomiting. Time Seen by Provider: 06/29/17 16:35 Chief Complaint (Nursing): Abdominal Pain History Per: Patient History/Exam Limitations: no limitations Onset/Duration Of Symptoms: Hrs Current Symptoms Are (Timing): Still Present Radiation Of Pain To:: None Associated Symptoms: denies: Fever, Chills, Nausea, Vomiting Exacerbating Factors: None Alleviating Factors: None Recent travel outside of the [place]: No Additional History Per: Prior Records Past Medical History Reviewed: Historical Data, Nursing Documentation, Vital Signs Vital Signs: Last Vital Signs Temp 97.4 F L 06/29/17 16:32 Pulse 83 06/29/17 18:42 Resp 16 06/29/17 18:42 BP 111/79 06/29/17 18:42 Pulse Ox 97 06/29/17 20:01 - Medical History PMH: Anemia, Anxiety, Arthritis, CHF, Depression, Gastritis, Gastrointestinal Ulcer (PEPTIC), HTN, Pancreatitis, Peripheral Edema Surgical History: - [facility] Procedures ALCOHOL DETOXIFICATION (05/03/13) DETOXIFICATION SERVICES FOR SUBSTANCE ABUSE TREATMENT (05/29/17) EXCISION OF DESCENDING COLON, ENDO, DIAGN (03/14/16) EXCISION OF STOMACH, ENDO, DIAGN (11/26/16) EXTIRPATION OF MATTER FROM LARGE INTESTINE, ENDO (01/09/17) GROUP PSYCHOTHERAPY (01/24/16) INSERT OF MONITOR DEV INTO CHEST SUBCU/FASCIA, OPEN APPROACH (12/18/16) MEASURE OF ARTERIAL PRESSURE, PERIPHERAL, KITCHEN STEWARD/STEWARDESS APPROACH (12/18/16) MEASUREMENT OF CARDIAC RHYTHM, EXTERNAL APPROACH (12/18/16) TRANSFUSE NONAUT RED BLOOD CELLS IN PERIPH ART, PERC (01/09/17) TRANSFUSE NONAUT RED BLOOD CELLS IN PERIPH VEIN, PERC (07/28/16) Family History: States: Unknown Family Hx - Social History Hx Tobacco Use: No (quit 2 months now) Hx Alcohol Use: Yes (1/2 pint vodka/day) Hx Substance Use: No - Immunization History Hx Tetanus Toxoid Vaccination: No Hx Influenza Vaccination: No Hx Pneumococcal Vaccination: No Review Of Systems Constitutional: Positive for: Weakness (generalized ). Negative for: Fever, Chills Cardiovascular: Negative for: Chest Pain, Palpitations Respiratory: Negative for: Cough, Shortness of Breath Gastrointestinal: Negative for: Nausea, Vomiting, Abdominal Pain, Diarrhea Physical Exam - Physical Exam Appears: Non-toxic, No Acute Distress, Other Skin: Warm, Dry, No Ecchymosis Head: Atraumatic, Normacephalic, No Tenderness, No Swelling, No Abrasion, No Laceration Neck: Normal ROM, Supple Chest: Symmetrical, No Deformity Cardiovascular: Rhythm Regular, No Murmur Respiratory: No Rales, No Rhonchi, No Wheezing, No Other (clear to auscultation bilaterally ) Gastrointestinal/Abdominal: Soft, No Tenderness, No Distention, No Guarding, No Rebound Extremity: Normal ROM, No Tenderness Pulses: Left Dorsalis Pedis: Normal, Right Dorsalis Pedis: Normal Neurological/Psych: Oriented x3, Other (slurred speech ,AOB) ED Course And Treatment O2 Sat by Pulse Oximetry: 97 (RA) Medical Decision Making Medical Decision Making: Pt was on a moniter admitted to ED observation for monitering until he returns to sobriety.I was informed by nursing that the patient eloped approx within the past 30 min ED OBSERVATION Date of observation admission: 06/29/17 Time of observation admission: 16:58 - Observation admission statement Patient is being placed in observation because:: patient is intoxicated. - Goals of Observation Goals of observation are:: Sobriety. - Progress Note Progress Note: 06/29/17 17:58 Patient is resting comfortably. Disposition - Disposition Disposition: ELOPEMENT - ER ONLY Disposition Time: 19:00 Condition: GOOD Forms: [facility] (Turkish) - Clinical Impression Clinical Impression: Alcohol abuse, Alcohol abuse - Scribe Statement The provider has reviewed the documentation as recorded by the Scribe Mya Hussein All medical record entries made by the Agustinibcamacho were at my direction and personally dictated by me. I have reviewed the chart and agree that the record accurately reflects my personal performance of the history, physical exam, medical decision making, and the department course for this patient. I have also personally directed, reviewed, and agree with the discharge instructions and disposition.
[2017-06-29 18:43] VITALS: BP 111/79; PULSE 83; RESP 16
== END 2017-06-29 19:52 | disposition left against medical advice (07) ==
LOC: C.ER 15:58
DX: F10.10 Alcohol abuse, uncomplicated (principal); Y90.9 Presence of alcohol in blood, level not specified

== ENCOUNTER 2017-07-11 19:51 | Inpatient (IN) | payer MEDICAID ==
[2017-07-11 19:51] VITALS: BMI 24.8
[2017-07-11 20:33] LABS: BASO % 1.6 % (0.0-2.0); EOS % 0.5 % (0.0-4.0); LYMPH # 0.6 K/uL (1.0-4.3); MEAN CELL VOLUME 98.9 fL (80.0-94.0); MEAN CORPUSCULAR HEMOGLOBIN 32.8 pg (27.0-31.0); MEAN CORPUSCULAR HGB CONC 33.1 g/dL (33.0-37.0); MEAN PLATELET VOLUME 9.3 fL (7.2-11.7); MONO # 0.2 K/uL (0.0-0.8); MONO % 9.5 % (0.0-10.0); NRBC % 0.4 % (0.0-2.0); RED CELL DISTRIBUTION WIDTH 14.7 % (11.5-14.5)
[2017-07-11] MEDS ORDERED: Sodium Chloride 0.9% 1,000 ML IV ONE (20:40)
[2017-07-11] MEDS ORDERED: Aspirin 325 mg EC Tablets PO STA (20:40)
--- NOTE | 2017-07-11 20:40 | C.PDOC ---
History Of Present Illness 61 year old male presents for evaluation of a syncopal episode with associated chest pain. Patient reports that just prior to arrival he was walking to a store when he syncopized. He notes that he has history of similar episodes and has an implantable loop recorder. He also notes daily alcohol and endorses drinking today. Time Seen by Provider: 07/11/17 20:17 Chief Complaint (Nursing): Chest Pain History Per: Patient History/Exam Limitations: no limitations Onset/Duration Of Symptoms: Hrs Current Symptoms Are (Timing): Still Present Context: Other Severity: Mild Pain Scale Rating Of: 2 Quality: Dull Associated Symptoms: Syncope. denies: Nausea Modifying Factors: None Exacerbating Factors: None Alleviating Factors: None Recent travel outside of the [place]: No Additional History Per: Patient Past Medical History Reviewed: Historical Data, Nursing Documentation, Vital Signs Vital Signs: Last Vital Signs Temp 97.9 F 07/11/17 19:59 Pulse 91 H 07/11/17 22:43 Resp 18 07/11/17 22:43 BP 106/80 07/11/17 22:43 Pulse Ox 99 07/11/17 22:43 - Medical History PMH: Anemia, Anxiety, Arthritis, CHF, Depression, Gastritis, Gastrointestinal Ulcer (PEPTIC), HTN, Pancreatitis, Peripheral Edema Denies: HIV, Kidney Stones, Chronic Kidney Disease, Seizures, Sexually Transmitted Disease Surgical History: - [facility] Procedures ALCOHOL DETOXIFICATION (05/03/13) DETOXIFICATION SERVICES FOR SUBSTANCE ABUSE TREATMENT (05/29/17) EXCISION OF DESCENDING COLON, ENDO, DIAGN (03/14/16) EXCISION OF STOMACH, ENDO, DIAGN (11/26/16) EXTIRPATION OF MATTER FROM LARGE INTESTINE, ENDO (01/09/17) GROUP PSYCHOTHERAPY (01/24/16) INSERT OF MONITOR DEV INTO CHEST SUBCU/FASCIA, OPEN APPROACH (12/18/16) MEASURE OF ARTERIAL PRESSURE, PERIPHERAL, MANAGER LSW APPROACH (12/18/16) MEASUREMENT OF CARDIAC RHYTHM, EXTERNAL APPROACH (12/18/16) TRANSFUSE NONAUT RED BLOOD CELLS IN PERIPH ART, PERC (01/09/17) TRANSFUSE NONAUT RED BLOOD CELLS IN PERIPH VEIN, PERC (07/28/16) Family History: States: Unknown Family Hx - Social History Hx Tobacco Use: No (quit 2 months now) Hx Alcohol Use: Yes (1/2 pint vodka/day) Hx Substance Use: No - Immunization History Hx Tetanus Toxoid Vaccination: No Hx Influenza Vaccination: No Hx Pneumococcal Vaccination: No Review Of Systems Constitutional: Negative for: Fever, Chills Eyes: Negative for: Redness ENT: Negative for: Throat Pain Cardiovascular: Positive for: Chest Pain, Other (Syncope ) Respiratory: Negative for: Shortness of Breath Gastrointestinal: Negative for: Nausea, Vomiting, Abdominal Pain Genitourinary: Negative for: Dysuria Musculoskeletal: Negative for: Back Pain Skin: Negative for: Rash, Lesions Neurological: Negative for: Weakness Psych: Positive for: Other (Alcohol Abuse). Negative for: Anxiety Physical Exam - Physical Exam Appears: Non-toxic, No Acute Distress Skin: Warm, Dry Head: Atraumatic, Normacephalic Eye(s): bilateral: Normal Inspection Oral Mucosa: Moist Neck: Trachea Midline, Supple Chest: Symmetrical, Other (Chest wall with implanted loop recorder) Cardiovascular: Rhythm Regular Respiratory: No Rales, No Rhonchi, No Wheezing Gastrointestinal/Abdominal: Soft, No Tenderness Back: No CVA Tenderness Extremity: Normal ROM Extremity: Bilateral: Atraumatic, No Pedal Edema, Normal Color And Temperature Pulses: Left Dorsalis Pedis: Normal, Right Dorsalis Pedis: Normal Neurological/Psych: Oriented x3, Normal Speech, Normal Cognition, Other (No focal deficits ) Gait: Unsteady ED Course And Treatment - Laboratory Results Result Diagrams: 07/11/17 20:29 07/11/17 20:29 ECG: Interpreted By Me, Viewed By Me ECG Rhythm: Sinus Rhythm, Nonspecific Changes O2 Sat by Pulse Oximetry: 98 Pulse Ox Interpretation: Normal - Radiology CXR: Interpreted by Me, Viewed By Me CXR Interpretation: Yes: COPD, Other (loop recorder). No: Infiltrates, Fracture Disposition Discussed With : Familia Rosen Comment: accepted the pt on his service and took over the care at 11PM Doctor Will See Patient In The: Hospital Counseled Patient/Family Regarding: Studies Performed, Diagnosis - Disposition Referrals: FAMILY PROVIDER,NO [Primary Care Provider] - Disposition: HOSPITALIZED Disposition Time: 20:40 Condition: FAIR Forms: [facility] (Citizen [place]) - POA Present On Arrival: Poor Glycemic Control - Clinical Impression Clinical Impression: Alcohol abuse, Syncope, History of loop recorder, Chest pain, Leukopenia - Scribe Statement The provider has reviewed the documentation as recorded by the Agustinibcamacho [place] Provider Attestation: All medical record entries made by the Agustinibe were at my direction and personally dictated by me. I have reviewed the chart and agree that the record accurately reflects my personal performance of the history, physical exam, medical decision making, and the department course for this patient. I have also personally directed, reviewed, and agree with the discharge instructions and disposition. Decision To Admit - Pt Status Changed To: Hospital Disposition Of: Observation - . Bed Request Type: Telemetry Admitting Physician: Familia Rosen Patient Diagnosis: Alcohol abuse, Syncope, History of loop recorder, Chest pain, Leukopenia
[2017-07-11 20:44] LABS: CHLORIDE 92 mmol/L (98-107)
[2017-07-11 20:45] LABS: POTASSIUM 5.5 mmol/L (3.6-5.2); SODIUM 137 mmol/L (132-148)
[2017-07-11 20:47] LABS: ALB/GLOB RATIO 1.1 (1.0-2.1); AST/SGOT 305 U/L (17-59); BILIRUBIN,TOTAL 1.5 mg/dL (0.2-1.3); CARBON DIOXIDE 15 mmol/L (22-30); GFR AFRICAN-AMERICAN > 60; TOTAL PROTEIN 9.8 g/dL (6.3-8.3)
[2017-07-11 20:48] LABS: ALKALINE PHOSPHATASE 69 U/L (38-126); ALT/SGPT 64 U/L (21-72); BLOOD UREA NITROGEN 23 mg/dL (9-20); CALCIUM 9.1 mg/dl (8.6-10.4); GLUCOSE,RANDOM 63 mg/dL (75-110)
[2017-07-11] MEDS ORDERED: Aspirin 325 mg EC Tablets PO ONE (20:51)
[2017-07-11 20:57] LABS: WHITE BLOOD COUNT 1.7 K/uL (4.8-10.8)
[2017-07-11 21:32] LABS: RBC URINE 130 /hpf (0-3); URINE BACTERIA RARE (<OCC); URINE BILIRUBIN NEGATIVE (NEGATIVE); URINE BLOOD 2+ (NEGATIVE); URINE COLOR Yellow (YELLOW); URINE GLUCOSE (UA) NORMAL (Normal); URINE KETONE 1+ mg/dL (NEGATIVE); URINE LEUKOCYTE ESTERASE NEG Leu/uL (Negative); URINE PROTEIN 2+ mg/dL (NEGATIVE); WBC URINE 5 /hpf (0-5)
--- NOTE | 2017-07-12 01:09 | CT ---
EXAM: CT Head Without Intravenous Contrast CLINICAL HISTORY: 61 years old, male; Pain; Headache; Patient HX: 06-24-17 images sent already; Additional info: Syncope TECHNIQUE: Axial computed tomography images of the head/brain without intravenous contrast. All CT scans at this facility use one or more dose reduction techniques, viz.: automated exposure control; ma/kV adjustment per patient size (including targeted exams where dose is matched to indication; i.e. head); or iterative reconstruction technique. Coronal and sagittal reformatted images were created and reviewed. COMPARISON: CT - HEAD W/O CONTRAST 06/24/2017 5:45:23 PM FINDINGS: Brain: [id number] atrophy. No intracranial hemorrhage. No mass. No definite edema. Ventricles: No hydrocephalus. Bones/joints: No acute fracture. Chronic fractures LEFT zygomatic arch, lateral wall of LEFT orbit, medial wall of RIGHT orbit. Soft tissues: Unremarkable. Sinuses: No acute sinusitis. Mastoid air cells: No mastoid effusion. Orbits: Unremarkable as visualized. IMPRESSION: 1. No acute intracranial abnormality. 2. Incidental/non-acute findings are described above.
[2017-07-12] MEDS ORDERED: Sod Polystyrene Sulf 15 gm/60 ml Susp PO ONE (01:18)
[2017-07-12] MEDS ORDERED: Simethicone 80 mg Chewtab PO ONE (02:51)
[2017-07-12] MEDS ORDERED: Potassium Ch 20mEq in D5-1/2NS 1,000 ML IV SCH ×2 (07:00→08:00)
--- NOTE | 2017-07-12 10:18 | RAD ---
PROCEDURE: CHEST RADIOGRAPH, 1 VIEW HISTORY: chest pain COMPARISON: Comparison is made to 06/24/2017 FINDINGS: LUNGS: Clear. PLEURA: No pneumothorax or pleural fluid seen. CARDIOVASCULAR: Normal. OSSEOUS STRUCTURES: No significant abnormalities. VISUALIZED UPPER ABDOMEN: Normal. OTHER FINDINGS: None. IMPRESSION: No active disease.
[2017-07-12] MEDS: Magnesium Chloride 64 mg ER Tab PO SCH ×2 (10:41→17:09)
[2017-07-12 15:14] LABS: BASO % 0.7 % (0.0-2.0); EOS % 1.4 % (0.0-4.0); LYMPH # 0.7 K/uL (1.0-4.3); LYMPH % 30.2 % (20.0-40.0); MEAN CELL VOLUME 96.1 fL (80.0-94.0); MEAN CORPUSCULAR HEMOGLOBIN 32.5 pg (27.0-31.0); MEAN CORPUSCULAR HGB CONC 33.8 g/dL (33.0-37.0); MEAN PLATELET VOLUME 9.6 fL (7.2-11.7); MONO # 0.2 K/uL (0.0-0.8); MONO % 9.3 % (0.0-10.0); NRBC % 0.4 % (0.0-2.0); RED CELL DISTRIBUTION WIDTH 14.3 % (11.5-14.5); WHITE BLOOD COUNT 2.4 K/uL (4.8-10.8)
[2017-07-12 15:22] LABS: POTASSIUM 4.4 mmol/L (3.6-5.2)
[2017-07-12 15:25] LABS: ALB/GLOB RATIO 1.1 (1.0-2.1); CALCIUM 8.5 mg/dl (8.6-10.4); PHOSPHOROUS 3.2 mg/dL (2.5-4.5); TOTAL PROTEIN 7.9 g/dL (6.3-8.3)
[2017-07-12 15:26] LABS: MAGNESIUM 1.3 mg/dL (1.6-2.3)
[2017-07-12] MEDS ORDERED: Sodium Chloride 0.9% 500 ML IV ONE (16:46)
[2017-07-12] MEDS: Magnesium Sulfate 1 gm in D5W 1 GM/100 ML BAG IVPB SCH ×2 (17:33→18:33)
[2017-07-13 07:24] LABS: BASO % 0.6 % (0.0-2.0); EOS % 1.5 % (0.0-4.0); HEMATOCRIT 23.8 % (35.0-51.0); LYMPH # 0.7 K/uL (1.0-4.3); LYMPH % 34.1 % (20.0-40.0); MEAN CORPUSCULAR HEMOGLOBIN 32.8 pg (27.0-31.0); MEAN CORPUSCULAR HGB CONC 34.1 g/dL (33.0-37.0); MEAN PLATELET VOLUME 9.8 fL (7.2-11.7); MONO # 0.2 K/uL (0.0-0.8); MONO % 8.8 % (0.0-10.0); NRBC % 0.8 % (0.0-2.0); RED CELL DISTRIBUTION WIDTH 14.1 % (11.5-14.5); WHITE BLOOD COUNT 2.2 K/uL (4.8-10.8)
[2017-07-13 08:04] LABS: POTASSIUM 4.1 mmol/L (3.6-5.2)
[2017-07-13 08:07] LABS: ALB/GLOB RATIO 1.3 (1.0-2.1); CALCIUM 8.8 mg/dl (8.6-10.4); TOTAL PROTEIN 7.3 g/dL (6.3-8.3)
[2017-07-13] MEDS ORDERED: Lactated Ringer's 1,000 ML IV SCH (09:15)
[2017-07-13] MEDS: Magnesium Chloride 64 mg ER Tab PO SCH ×2 (09:30→21:57)
[2017-07-13] MEDS: Lactated Ringer's 1,000 ML IV SCH ×4 (09:30→19:00)
--- NOTE | 2017-07-13 09:45 | HP ---
HISTORY OF PRESENT ILLNESS: This is a 61-year-old male with nausea, vomiting, and progressive passing out spells, fall, and chest discomfort. The patient is an alcoholic, has multiple episodes of syncope in the past, had any abnormality. PHYSICAL EXAMINATION: GENERAL: The patient is awake, lethargic. VITAL SIGNS: Temperature is 98 and pulse 90. HEENT: Within normal limits. NECK: Supple. CHEST: Symmetrical. HEART: Regular. ABDOMEN: Soft. EXTREMITIES: No edema. IMPRESSION: The patient suffers from alcoholism, alcohol withdrawal, syncope. The patient received telemetry monitoring, supportive care, . Familia Rosen MD
--- NOTE | 2017-07-13 11:39 | CP.PCM.PN ---
Subjective - Date & Time of Evaluation Date of Evaluation: 07/13/17 Time of Evaluation: 11:47 - Subjective Subjective: Pt seen and examined at bedside this AM; denies any complaints; feels better with [facility] protocol being followed; has no desire to stop drinking at this time. Objective - Vital Signs/Intake and Output Vital Signs (last 24 hours): Temp Pulse Resp BP Pulse Ox 97.4 F L 93 H 20 105/73 100 07/13/17 08:10 07/13/17 08:10 07/13/17 08:10 07/13/17 08:10 07/13/17 08:10 Intake and Output: 07/13/17 07/13/17 06:59 18:59 Output Total 200 Balance -200 - Medications Medications: Current Medications Acetaminophen (Tylenol 325mg Tab) 650 mg PO Q6 PRN PRN Reason: Pain, moderate (4-7) Last Admin: 07/13/17 03:05 Dose: 650 mg Folic Acid (Folic Acid) 1 mg PO DAILY [facility] Last Admin: 07/13/17 09:30 Dose: 1 mg Potassium Chloride/Dextrose/Sod Cl (Potassium Chl 20 Meq In D5-1/2ns) 1,000 mls @ 100 mls/hr IV .Q10H [facility] Last Admin: 07/12/17 08:32 Dose: Not Given Lactated Ringer's (Lactated Ringer's) 1,000 mls @ 250 mls/hr IV .Q4H [facility] Stop: 07/13/17 18:00 Last Admin: 07/13/17 09:30 Dose: 250 mls/hr Lorazepam (Ativan) 2 mg IVP Q4H PRN PRN Reason: Anxiety Last Admin: 07/12/17 17:39 Dose: 2 mg Lorazepam (Ativan) 2 mg IVP Q4 ALBERTO PRN Reason: Taper Stop: 07/18/17 07:59 Last Admin: 07/13/17 07:57 Dose: Not Given Magnesium Chloride (Slow-Mag) 128 mg PO BID [facility] Last Admin: 07/13/17 09:30 Dose: 128 mg Pantoprazole Sodium (Protonix Inj) 40 mg IVP DAILY [facility] Last Admin: 07/13/17 09:30 Dose: 40 mg Thiamine HCl (Vitamin B1 Tab) 100 mg PO DAILY [facility] Last Admin: 07/13/17 09:30 Dose: 100 mg - Labs Labs: 07/13/17 07:07 07/13/17 07:07 PT 11.3 SECONDS (9.7-12.2) 07/11/17 20:46 INR 1.0 07/11/17 20:46 APTT 28 SECONDS (21-34) 07/11/17 20:46 - Constitutional Appears: Non-toxic - Head Exam Head Exam: ATRAUMATIC - Eye Exam Eye Exam: EOMI - ENT Exam ENT Exam: Mucous Membranes Moist - Neck Exam Neck Exam: Full ROM. absent: Lymphadenopathy Assessment and Plan - Assessment and Plan (Free Text) Assessment: 61yo M admitted for EtOH withdrawal/AMS and pancreatitis EtOH Withdrawal/Dependence/Abuse -EtOH 270 on admission -patient drinks 1-2L of vodka daily -CIWA protocol, Thiamine/Folate Daily, Ativan taper -NPO diet for now; start CLD for dinner Chest pain -resolved with CIWA protocol being followed -EKG wnl and ROMIx3 negative -telemetry monitoring -monitor electrolytes Anemia and pancytopenia;chronic and 2/2 to bone marrow suppression from excessive EtOH intake -hemoglobin 8.1 -in setting of chronic EtOH use the patient will need to stop drinking -slight microscopic hematuria on UA; will repeat -recommending outpatient cytology for f/u;patient was a smoker -holding DVT Proph 2/2 to thrombocytopenia Pancreatitis; acute and resolving -Lipase was 800 today -Lactated ringers 200ml/hr until 9pm tonight -NPO for now; CLD for dinner; patient requesting to eat -please avoid narcotics -watch for decreasing BUN in setting of pancreatitis HepC; chronic untreated -patient will need outpatient GI for Hep C Treatment Proph -hold DVT proph in setting of pancytopenia/thrombocytopenia; c/w SCD -Pepcid PO daily -CIWA/patient is refusing rehab All management as per Dr. Rosen
--- NOTE | 2017-07-13 12:37 | CARD ---
APPROVED REPORT EKG Measurement Heart [id number] NM 200P43 [id number] <Conclusion> Normal sinus rhythm Nonspecific T wave abnormality Abnormal ECG
--- NOTE | 2017-07-13 12:57 | CARD ---
APPROVED REPORT EKG Measurement Heart [id number] NC 214P42 [id number] <Conclusion> Sinus rhythm with 1st degree AV block Inferior infarct, age undetermined Abnormal ECG
[2017-07-13 22:10] LABS: RBC URINE 10 /hpf (0-3); URINE BACTERIA OCC (<OCC); URINE BILIRUBIN NEGATIVE (NEGATIVE); URINE BLOOD 1+ (NEGATIVE); URINE COLOR Yellow (YELLOW); URINE GLUCOSE (UA) 1+ mg/dL (Normal); URINE KETONE 1+ mg/dL (NEGATIVE); URINE LEUKOCYTE ESTERASE 1+ Leu/uL (Negative); URINE PROTEIN 1+ mg/dL (NEGATIVE); WBC URINE 10 /hpf (0-5)
[2017-07-14 08:15] LABS: HEMATOCRIT 22.9 % (35.0-51.0); MEAN CELL VOLUME 96.6 fL (80.0-94.0); MEAN CORPUSCULAR HEMOGLOBIN 32.3 pg (27.0-31.0); MEAN CORPUSCULAR HGB CONC 33.5 g/dL (33.0-37.0); MEAN PLATELET VOLUME 11.3 fL (7.2-11.7); RED CELL DISTRIBUTION WIDTH 14.2 % (11.5-14.5); WHITE BLOOD COUNT 2.4 K/uL (4.8-10.8)
[2017-07-14 08:25] LABS: CHLORIDE 93 mmol/L (98-107)
[2017-07-14 08:26] LABS: POTASSIUM 3.8 mmol/L (3.6-5.2); SODIUM 130 mmol/L (132-148)
[2017-07-14 08:28] LABS: ALB/GLOB RATIO 1.2 (1.0-2.1); ALKALINE PHOSPHATASE 48 U/L (38-126); ALT/SGPT 39 U/L (21-72); AST/SGOT 109 U/L (17-59); BILIRUBIN,TOTAL 0.9 mg/dL (0.2-1.3); BLOOD UREA NITROGEN 16 mg/dL (9-20); CALCIUM 8.8 mg/dl (8.6-10.4); CARBON DIOXIDE 27 mmol/L (22-30); GFR AFRICAN-AMERICAN > 60; GLUCOSE,RANDOM 107 mg/dL (75-110); TOTAL PROTEIN 6.9 g/dL (6.3-8.3)
[2017-07-14 08:29] LABS: MAGNESIUM 1.3 mg/dL (1.6-2.3)
--- NOTE | 2017-07-14 09:13 | CP.PCM.PN ---
Subjective - Date & Time of Evaluation Date of Evaluation: 07/14/17 Time of Evaluation: 09:30 - Subjective Subjective: Dr. Rosen note: Patient seen and examined in room. Patient reports not feeling well, nausea, vomiting before admission. He is currently complaining of abdominal pain that is burning but denies any coffee ground emesis or blood in stool. Objective - Vital Signs/Intake and Output Vital Signs (last 24 hours): Temp Pulse Resp BP Pulse Ox 98.5 F 98 H 20 106/73 100 07/14/17 07:00 07/14/17 07:06 07/14/17 07:00 07/14/17 07:00 07/14/17 07:00 Intake and Output: 07/14/17 07/14/17 06:59 18:59 Intake Total 2240 Output Total 1300 Balance 940 - Medications Medications: Current Medications Acetaminophen (Tylenol 325mg Tab) 650 mg PO Q6 PRN PRN Reason: Pain, moderate (4-7) Last Admin: 07/13/17 23:49 Dose: 650 mg Folic Acid (Folic Acid) 1 mg PO DAILY [facility] Last Admin: 07/13/17 09:30 Dose: 1 mg Potassium Chloride/Dextrose/Sod Cl (Potassium Chl 20 Meq In D5-1/2ns) 1,000 mls @ 100 mls/hr IV .Q10H [facility] Last Admin: 07/12/17 08:32 Dose: Not Given Lorazepam (Ativan) 2 mg IVP Q4H PRN PRN Reason: Anxiety Last Admin: 07/13/17 17:14 Dose: 2 mg Lorazepam (Ativan) 2 mg IVP Q4 ALBERTO PRN Reason: Taper Stop: 07/18/17 07:59 Last Admin: 07/14/17 08:02 Dose: Not Given Magnesium Chloride (Slow-Mag) 128 mg PO BID [facility] Last Admin: 07/13/17 21:57 Dose: 128 mg Ondansetron HCl (Zofran Inj) 8 mg IVP Q6H PRN PRN Reason: Nausea/Vomiting Last Admin: 07/13/17 13:18 Dose: 8 mg Pantoprazole Sodium (Protonix Inj) 40 mg IVP DAILY [facility] Last Admin: 07/13/17 09:30 Dose: 40 mg Thiamine HCl (Vitamin B1 Tab) 100 mg PO DAILY [facility] Last Admin: 07/13/17 09:30 Dose: 100 mg - Labs Labs: 07/14/17 08:05 07/14/17 08:05 PT 11.3 SECONDS (9.7-12.2) 07/11/17 20:46 INR 1.0 07/11/17 20:46 APTT 28 SECONDS (21-34) 07/11/17 20:46 - Constitutional Appears: Non-toxic, No Acute Distress Assessment and Plan - Assessment and Plan (Free Text) Assessment: Assessment: 61yo M admitted for EtOH withdrawal/AMS and pancreatitis EtOH Withdrawal/Dependence/Abuse 07/14: Patient on CIWA protocol and Ativan taper, still on liquid diet. continue thiamin folate, fall precautions. EtOH 270 on admission -patient drinks 1-2L of vodka daily -CIWA protocol, Thiamine/Folate Daily, Ativan taper -NPO diet for now; start CLD for dinner Low Magnesium 07/14: 1 gram of Mag given in 2 bags, recheck tomorrow. Chest pain -resolved with CIWA protocol being followed -EKG wnl and ROMIx3 negative -telemetry monitoring -monitor electrolytes Anemia and pancytopenia;chronic and 2/2 to bone marrow suppression from excessive EtOH intake 07/14: Transfuse 2 units of PRBCs, Hbg today is 7.7. hemoglobin 8.1 -in setting of chronic EtOH use the patient will need to stop drinking -slight microscopic hematuria on UA; will repeat -recommending outpatient cytology for f/u;patient was a smoker -holding DVT Proph 2/2 to thrombocytopenia Pancreatitis; acute and resolving 07/14: patient still having abdominal pain, clear liquid diet Lipase was 800 today -Lactated ringers 200ml/hr until 9pm tonight -NPO for now; CLD for dinner; patient requesting to eat -please avoid narcotics -watch for decreasing BUN in setting of pancreatitis HepC; chronic untreated 07/14: Patient to follow up with GI as outpatient patient will need outpatient GI for Hep C Treatment Proph -hold DVT proph in setting of pancytopenia/thrombocytopenia; c/w SCD -Pepcid PO daily -CIWA/patient is refusing rehab All management as per Dr. Rosen
[2017-07-14] MEDS: Magnesium Chloride 64 mg ER Tab PO SCH ×2 (09:17→17:32)
[2017-07-14] MEDS ORDERED: Alum-Mag Hydrox-Simethicone Susp (30 mL) PO ONE (09:51)
[2017-07-14] MEDS: Magnesium Sulfate 1 gm in D5W 1 GM/100 ML BAG IVPB SCH ×4 (11:06→15:07)
[2017-07-14] MEDS ORDERED: Magnesium Sulfate 1 gm in D5W 1 GM/100 ML BAG IVPB SCH (12:30)
--- NOTE | 2017-07-14 18:34 | CARD ---
APPROVED REPORT EKG Measurement Heart [id number] <Conclusion> Accelerated Junctional rhythm with retrograde conduction PVC Nonspecific T wave abnormality Abnormal ECG
--- NOTE | 2017-07-14 18:35 | CARD ---
APPROVED REPORT EKG Measurement Heart [id number] GA [id number] <Conclusion> Normal sinus rhythm Normal ECG
[2017-07-15 06:35] LABS: HEMATOCRIT 28.1 % (35.0-51.0); MEAN CORPUSCULAR HEMOGLOBIN 31.7 pg (27.0-31.0); MEAN CORPUSCULAR HGB CONC 33.7 g/dL (33.0-37.0); MEAN PLATELET VOLUME 10.8 fL (7.2-11.7); RED CELL DISTRIBUTION WIDTH 15.9 % (11.5-14.5)
[2017-07-15 07:17] LABS: CHLORIDE 95 mmol/L (98-107); POTASSIUM 3.8 mmol/L (3.6-5.2); SODIUM 130 mmol/L (132-148)
[2017-07-15 07:19] LABS: ALB/GLOB RATIO 1.1 (1.0-2.1); ALKALINE PHOSPHATASE 48 U/L (38-126); AST/SGOT 110 U/L (17-59); BILIRUBIN,TOTAL 1.1 mg/dL (0.2-1.3); BLOOD UREA NITROGEN 13 mg/dL (9-20); CARBON DIOXIDE 27 mmol/L (22-30); GFR AFRICAN-AMERICAN > 60; GLUCOSE,RANDOM 98 mg/dL (75-110); TOTAL PROTEIN 6.9 g/dL (6.3-8.3)
[2017-07-15 07:20] LABS: ALT/SGPT 39 U/L (21-72); CALCIUM 8.8 mg/dl (8.6-10.4); MAGNESIUM 1.5 mg/dL (1.6-2.3); PHOSPHOROUS 1.8 mg/dL (2.5-4.5)
[2017-07-15] MEDS ORDERED: Potassium & Sodium Phosphate PO ONE (07:45)
[2017-07-15] MEDS: Magnesium Sulfate 1 gm in D5W 1 GM/100 ML BAG IVPB SCH ×2 (07:55→08:22)
[2017-07-15] MEDS: Magnesium Chloride 64 mg ER Tab PO SCH ×2 (11:13→18:45)
--- NOTE | 2017-07-15 13:09 | CT ---
PROCEDURE: CT Abdomen and Pelvis without intravenous contrast HISTORY: abdominal pain, COMPARISON: Comparison is made to previous study dated 12/13/2016 TECHNIQUE: Axial and reformatted coronal and sagittal CT images of the abdomen and pelvis were obtained without IV or oral contrast administration.. Contrast Dose: 0 Radiation dose: Total exam DLP = 499.44 mGy-cm. This CT exam was performed using one or more of the following dose reduction techniques: Automated exposure control, adjustment of the mA and/or kV according to patient size, and/or use of iterative reconstruction technique. FINDINGS: LOWER THORAX: No evidence of acute pathology at the lung bases. Mild bronchiectasis is again noted at both lower lobes. LIVER: Diffuse moderate to severe low-attenuation of the liver is again noted suggestive of fatty liver. GALLBLADDER AND BILE DUCTS: Unremarkable. PANCREAS: Unremarkable. No gross lesion or ductal dilatation. SPLEEN: Unremarkable. ADRENALS: Unremarkable. No mass. KIDNEYS AND URETERS: Unremarkable. No hydronephrosis. No solid mass. VASCULATURE: Unremarkable. No aortic aneurysm. BOWEL: The stomach is not distended. However there is suspicious for diffuse gastric wall thickening. No evidence of small bowel obstruction. Few scattered colonic diverticulosis are again seen without evidence of diverticulitis. APPENDIX: There is no evidence of appendicitis. PERITONEUM: Unremarkable. No free fluid. No free air. LYMPH NODES: Unremarkable. No enlarged lymph nodes. BLADDER: Unremarkable. REPRODUCTIVE: The prostate and seminal vesicles are slightly prominent in size. BONES: Advanced degenerative changes at the lumbar spine are again noted. OTHER FINDINGS: None. IMPRESSION: No evidence of acute pathology in the abdomen and pelvis. Moderate to severe hepatic steatosis. Diffuse gastric wall thickening. No evidence of nephrolithiasis or hydronephrosis.
--- NOTE | 2017-07-15 17:58 | CP.PCM.PN ---
Subjective - Date & Time of Evaluation Date of Evaluation: 07/15/17 Time of Evaluation: 09:00 - Subjective Subjective: Dr. Rosen note: Patient seen and examined in room. Patient is complaining of abdominal pain which he says is in his lower abdomen. He denies nausea, vomiting, fever, or chills. But he does report decreased appetite as well. He is not as anxious but still tremulous. Objective - Vital Signs/Intake and Output Vital Signs (last 24 hours): Temp Pulse Resp BP Pulse Ox 97.8 F 93 H 18 101/71 97 07/15/17 15:20 07/15/17 15:20 07/15/17 15:20 07/15/17 15:20 07/15/17 15:20 Intake and Output: 07/15/17 07/15/17 06:59 18:59 Intake Total 900 150 Output Total 1000 Balance -100 150 - Medications Medications: Current Medications Acetaminophen (Tylenol 325mg Tab) 650 mg PO Q6 PRN PRN Reason: Pain, moderate (4-7) Last Admin: 07/13/17 23:49 Dose: 650 mg Folic Acid (Folic Acid) 1 mg PO DAILY [facility] Last Admin: 07/15/17 09:22 Dose: 1 mg Potassium Chloride/Dextrose/Sod Cl (Potassium Chl 20 Meq In D5-1/2ns) 1,000 mls @ 100 mls/hr IV .Q10H [facility] Last Admin: 07/12/17 08:32 Dose: Not Given Lorazepam (Ativan) 2 mg IVP Q4H PRN PRN Reason: Anxiety Last Admin: 07/13/17 17:14 Dose: 2 mg Lorazepam (Ativan) 1 mg IVP Q4 [facility] PRN Reason: Taper Stop: 07/18/17 07:59 Last Admin: 07/15/17 13:53 Dose: Not Given Magnesium Chloride (Slow-Mag) 128 mg PO BID [facility] Last Admin: 07/15/17 11:13 Dose: 128 mg Ondansetron HCl (Zofran Inj) 8 mg IVP Q6H PRN PRN Reason: Nausea/Vomiting Last Admin: 07/13/17 13:18 Dose: 8 mg Pantoprazole Sodium (Protonix Inj) 40 mg IVP Q12H [facility] Last Admin: 07/15/17 05:28 Dose: 40 mg Thiamine HCl (Vitamin B1 Tab) 100 mg PO DAILY [facility] Last Admin: 07/15/17 09:22 Dose: 100 mg - Labs Labs: 07/15/17 06:29 07/15/17 06:29 PT 11.3 SECONDS (9.7-12.2) 07/11/17 20:46 INR 1.0 07/11/17 20:46 APTT 28 SECONDS (21-34) 07/11/17 20:46 - Constitutional Appears: Non-toxic, No Acute Distress, Unkempt - Eye Exam Eye Exam: absent: Scleral icterus Pupil Exam: NORMAL ACCOMODATION - Respiratory Exam Respiratory Exam: Clear to Ausculation Bilateral. absent: Rales, Rhonchi - Cardiovascular Exam Cardiovascular Exam: REGULAR RHYTHM, RRR, +S1, +S2. absent: Gallop, Rubs - GI/Abdominal Exam GI & Abdominal Exam: Guarding, Soft, Tenderness, Normal Bowel Sounds. absent: Distended, Firm - Extremities Exam Extremities Exam: Normal Inspection. absent: Pedal Edema - Psychiatric Exam Psychiatric exam: Normal Affect, Normal Mood - Skin Skin Exam: Normal Color, Warm Assessment and Plan - Assessment and Plan (Free Text) Assessment: 61yo M admitted for EtOH withdrawal/AMS and pancreatitis, continue with CIW, ativan taper, thiamin and folate. CT of the abdomen is unremarkable and also lactate is within normal limits. replaced Mag, physical therapy will continue. EtOH Withdrawal/Dependence/Abuse 07/14: Patient on CIWA protocol and Ativan taper, still on liquid diet. continue thiamin folate, fall precautions. EtOH 270 on admission -patient drinks 1-2L of vodka daily -CIWA protocol, Thiamine/Folate Daily, Ativan taper -NPO diet for now; start CLD for dinner Low Magnesium 07/15; Mag is 1.5 today, more Mag given, replace as needed. 07/14: 1 gram of Mag given in 2 bags, recheck tomorrow. Chest pain -resolved with CIWA protocol being followed -EKG wnl and ROMIx3 negative -telemetry monitoring -monitor electrolytes Anemia and pancytopenia;chronic and 2/2 to bone marrow suppression from excessive EtOH intake 07/15: improved to 9.5, continue to monitor. 07/14: Transfuse 2 units of PRBCs, Hbg today is 7.7. hemoglobin 8.1 -in setting of chronic EtOH use the patient will need to stop drinking -slight microscopic hematuria on UA; will repeat -recommending outpatient cytology for f/u;patient was a smoker -holding DVT Proph 10/30 to thrombocytopenia Pancreatitis; acute and resolving 07/15: full liquid diet, IV fluids, CT scan negative 07/14: patient still having abdominal pain, clear liquid diet Lipase was 800 today -Lactated ringers 200ml/hr until 9pm tonight -NPO for now; CLD for dinner; patient requesting to eat -please avoid narcotics -watch for decreasing BUN in setting of pancreatitis HepC; chronic untreated 07/14: Patient to follow up with GI as outpatient patient will need outpatient GI for Hep C Treatment Proph 07/15: continue current management hold DVT proph in setting of pancytopenia/thrombocytopenia; c/w SCD -Pepcid PO daily -CIWA/patient is refusing rehab All management as per Dr. Rosen
[2017-07-15 22:00] LABS: RBC URINE 26 /hpf (0-3); URINE BACTERIA MOD (<OCC); URINE BILIRUBIN NEGATIVE (NEGATIVE); URINE BLOOD 1+ (NEGATIVE); URINE COLOR Amber (YELLOW); URINE GLUCOSE (UA) NORMAL (Normal); URINE KETONE NEGATIVE (NEGATIVE); URINE LEUKOCYTE ESTERASE 3+ Leu/uL (Negative); URINE PROTEIN NEGATIVE (NEGATIVE); WBC URINE 95 /hpf (0-5)
[2017-07-16 07:30] LABS: HEMATOCRIT 28.5 % (35.0-51.0); MEAN CELL VOLUME 94.1 fL (80.0-94.0); MEAN CORPUSCULAR HEMOGLOBIN 32.3 pg (27.0-31.0); MEAN CORPUSCULAR HGB CONC 34.3 g/dL (33.0-37.0); MEAN PLATELET VOLUME 10.8 fL (7.2-11.7); RED CELL DISTRIBUTION WIDTH 15.6 % (11.5-14.5); WHITE BLOOD COUNT 2.6 K/uL (4.8-10.8)
[2017-07-16 07:48] LABS: CHLORIDE 96 mmol/L (98-107); POTASSIUM 4.4 mmol/L (3.6-5.2); SODIUM 131 mmol/L (132-148)
[2017-07-16 07:50] LABS: ALB/GLOB RATIO 1.1 (1.0-2.1); CARBON DIOXIDE 26 mmol/L (22-30); GFR AFRICAN-AMERICAN > 60
[2017-07-16 07:51] LABS: ALKALINE PHOSPHATASE 53 U/L (38-126); ALT/SGPT 36 U/L (21-72); AST/SGOT 119 U/L (17-59); BLOOD UREA NITROGEN 11 mg/dL (9-20); CALCIUM 8.9 mg/dl (8.6-10.4); GLUCOSE,RANDOM 91 mg/dL (75-110); PHOSPHOROUS 2.2 mg/dL (2.5-4.5)
[2017-07-16 07:52] LABS: MAGNESIUM 1.6 mg/dL (1.6-2.3)
[2017-07-16] MEDS: Magnesium Chloride 64 mg ER Tab PO SCH ×2 (09:07→18:16)
--- NOTE | 2017-07-16 09:48 | CP.PCM.PN ---
Subjective - Date & Time of Evaluation Date of Evaluation: 07/16/17 Time of Evaluation: 09:48 - Subjective Subjective: Patient seen and examined at bedside this AM; denies any acute complaints; tolerated a regular breakfast this AM; states he is hungry with mild pain in his abdomen but no nausea. Denies other symptoms. States wants to go to rehab. Objective - Vital Signs/Intake and Output Vital Signs (last 24 hours): Temp Pulse Resp BP Pulse Ox 98.0 F 84 18 101/72 99 07/16/17 08:00 07/16/17 08:00 07/16/17 08:00 07/16/17 08:00 07/16/17 08:00 Intake and Output: 07/16/17 07/16/17 06:59 18:59 Intake Total 360 Output Total 800 Balance -440 - Medications Medications: Current Medications Acetaminophen (Tylenol 325mg Tab) 650 mg PO Q6 PRN PRN Reason: Pain, moderate (4-7) Last Admin: 07/13/17 23:49 Dose: 650 mg Folic Acid (Folic Acid) 1 mg PO DAILY [facility] Last Admin: 07/16/17 09:07 Dose: 1 mg Potassium Chloride/Dextrose/Sod Cl (Potassium Chl 20 Meq In D5-1/2ns) 1,000 mls @ 100 mls/hr IV .Q10H [facility] Last Admin: 07/12/17 08:32 Dose: Not Given Lorazepam (Ativan) 2 mg IVP Q4H PRN PRN Reason: Anxiety Last Admin: 07/13/17 17:14 Dose: 2 mg Lorazepam (Ativan) 1 mg IVP Q8 ALBERTO PRN Reason: Taper Stop: 07/18/17 07:59 Last Admin: 07/16/17 04:00 Dose: Not Given Magnesium Chloride (Slow-Mag) 128 mg PO BID [facility] Last Admin: 07/16/17 09:07 Dose: 128 mg Ondansetron HCl (Zofran Inj) 8 mg IVP Q6H PRN PRN Reason: Nausea/Vomiting Last Admin: 07/13/17 13:18 Dose: 8 mg Pantoprazole Sodium (Protonix Inj) 40 mg IVP Q12H [facility] Last Admin: 07/16/17 06:22 Dose: 40 mg Thiamine HCl (Vitamin B1 Tab) 100 mg PO DAILY [facility] Last Admin: 07/16/17 09:07 Dose: 100 mg - Labs Labs: 07/16/17 07:07 07/16/17 07:07 PT 11.3 SECONDS (9.7-12.2) 07/11/17 20:46 INR 1.0 07/11/17 20:46 APTT 28 SECONDS (21-34) 07/11/17 20:46 - Constitutional Appears: Non-toxic - Head Exam Head Exam: ATRAUMATIC - Eye Exam Eye Exam: EOMI Pupil Exam: PERRL - ENT Exam ENT Exam: Mucous Membranes Moist - Neck Exam Neck Exam: Full ROM. absent: Lymphadenopathy - Respiratory Exam Respiratory Exam: Clear to Ausculation Bilateral. absent: Rales, Rhonchi, Wheezes - Cardiovascular Exam Cardiovascular Exam: REGULAR RHYTHM - GI/Abdominal Exam GI & Abdominal Exam: Soft, Normal Bowel Sounds - Rectal Exam Rectal Exam: Deferred - Extremities Exam Extremities Exam: Full ROM. absent: Calf Tenderness - Back Exam Back Exam: NORMAL INSPECTION. absent: CVA tenderness (L), CVA tenderness (R) - Neurological Exam Neurological Exam: Alert, Awake, Oriented x3 - Skin Skin Exam: Warm Assessment and Plan - Assessment and Plan (Free Text) Assessment: 61yo M admitted for EtOH withdrawal/AMS and pancreatitis, continue with CIW, ativan taper, thiamin and folate. CT of the abdomen is unremarkable and also lactate is within normal limits. replaced Mag, physical therapy will continue. EtOH Withdrawal/Dependence/Abuse 07/16: patient states he wants to go to rehab; [facility]; f/ u with case management 07/14: Patient on CIWA protocol and Ativan taper, still on liquid diet. continue thiamin folate, fall precautions. EtOH 270 on admission -patient drinks 1-2L of vodka daily -CIWA protocol, Thiamine/Folate Daily, Ativan taper -NPO diet for now; start CLD for dinner Low Magnesium; resolved 07/15; Mag is 1.5 today, more Mag given, replace as needed. 07/14: 1 gram of Mag given in 2 bags, recheck tomorrow. Chest pain; resolved -resolved with CIWA protocol being followed -EKG wnl and ROMIx3 negative -telemetry monitoring -monitor electrolytes Anemia and pancytopenia;chronic and 2/2 to bone marrow suppression from excessive EtOH intake 07/16: 9.8 today; stable 07/15: improved to 9.5, continue to monitor. 07/14: Transfuse 2 units of PRBCs, Hbg today is 7.7. hemoglobin 8.1 -in setting of chronic EtOH use the patient will need to stop drinking -slight microscopic hematuria on UA; will repeat -recommending outpatient cytology for f/u;patient was a smoker -holding DVT Proph 2/ to thrombocytopenia Pancreatitis; acute and resolving 07/16: patient tolerated regular diet for breakfast 07/15: full liquid diet, IV fluids, CT scan negative 07/14: patient still having abdominal pain, clear liquid diet Lipase was 800 today -Lactated ringers 200ml/hr until 9pm tonight -NPO for now; CLD for dinner; patient requesting to eat -please avoid narcotics -watch for decreasing BUN in setting of pancreatitis HepC; chronic untreated 07/14: Patient to follow up with GI as outpatient patient will need outpatient GI for Hep C Treatment Proph 07/15: continue current management hold DVT proph in setting of pancytopenia/thrombocytopenia; c/w SCD -Pepcid PO daily -CIWA/patient wants to go to rehab Patient needs PT eval before placement into rehab/[facility]; f/u recs and will d/c accordingly All management as per Dr. Rosen
[2017-07-16] MEDS ORDERED: Sodium Chloride 0.9% 1,000 ML IV ONE (15:05)
--- NOTE | 2017-07-16 15:35 | PCM.RRT ---
WARP PLACER Nurses Assessment - Situation Date: 07/16/17 Time WARP PLACER was called: 15:05 WARP PLACER Responder Arrival Time:: 15:10 WARP PLACER Location:: 6T Med/Surg WARP PLACER Called By: RN - IV IV Inserted during WARP PLACER?: No New IV Insertion Tolerance: Excellent - Respiratory WARP PLACER Delivery Method: Room Air Was the Patient Intubated?: No - Medication Medications Administered During WARP PLACER: NS 1000ml was given to the patient - Diagnostic Test Ordered EKG: Yes (T wave inversions when compared to prior; 1st degree AV block unchanged) Chest X-Ray: Yes (normal chest xray ) CT Scan: No - Stat Labs Ordered WARP PLACER Stat Labs Ordered: CBC, TROPONIN WARP PLACER Other Labs Ordered: CMP, lipase, EKG, chest x-ray, HIV, Lipid panel, TSH/ Free T4 CPR started during WARP PLACER?: No - [place] Coma Scale Coma Scale Eye Opening: Spontaneous Coma Scale Motor: Obeys Commands Movement Coma Scale Verbal: Oriented Coma Scale Total: 15 - Sepsis Screen Part 2 Sepsis Screen Part 2: Platelets under 80,000 - Time WARP PLACER Ended Time WARP PLACER Ended: 15:35 - Vital Signs at end of WARP PLACER Vital Signs at end of WARP PLACER: HR 80, 100% on RA, BP 105/70 after 1/2 liter - Recommendations 5) WARP PLACER Level of Care Recommendations: Remain in current setting I.Reason for WARP PLACER - A) Acute Change in Patient: Subjective: The patient was having a BM, and by nursing staff was seen to "pass out" while on the toilet Patient did not fall, did not hit head, and was watched during the entire event patient states he has epigastric pain, which is the same pain that he came into the hospital with. He had his first real meal today after being diagnosed with pancreatitis. States the pain is better than on admission, but still painful. Denies vomiting or other withdrawal EtOH symptoms. Has not gotten any PRN ativan/librium. Patient ANOx3 during entire WARP PLACER Vital signs stable Loose stool seen; stool studies ordered EKG shows T wave inversions which are changed from prior TOO sent, lipid panel, TSH/Free T4, Stool studies, CBC, CMP, Lipase Awaiting results Given 1L NS; patient feels slightly better Will continue to follow - Neurological Status (Select all that apply): Alert, Responsive, Oriented, Verbal, Follows Commands - Respiratory Oxygen Delivery Method: Room Air - Constitutional Appears: Non-toxic - Head Head Exam: ATRAUMATIC - Eyes Eye Exam: EOMI - Respiratory Exam Respiratory Exam: Clear to Ausculation Bilateral, Wheezes (loop recorder in place), NORMAL BREATHING PATTERN. absent: Rales, Rhonchi - Cardiovascular Exam Cardiovascular Exam: REGULAR RHYTHM, +S1, +S2 - GI/Abdominal Exam GI & Abdominal Exam: Soft, Tenderness (epigastric region), Normal Bowel Sounds - Neurological Exam Neurological Exam: Alert, Awake, Oriented x3 - Extremities Exam Extremities Exam: Full ROM Plan - Assessment of Findings&Treatment Plan Will f/u TOO and EKG; EKG showed new T wave inversions; ordered Q6H f/u Lipase If lipase elevated, patient is already NPO but will need more fluids; recommend lactated ringers given their efficacy in pancreatitis If pain does not improve consider repeating CT scan in the AM Try to avoid narcotics in this patient as he has a history of narcotic abuse; however may be necessary
[2017-07-16 15:56] LABS: BASO % 0.8 % (0.0-2.0); EOS % 1.5 % (0.0-4.0); HEMATOCRIT 30.3 % (35.0-51.0); LYMPH # 0.6 K/uL (1.0-4.3); LYMPH % 22.3 % (20.0-40.0); MEAN CELL VOLUME 95.8 fL (80.0-94.0); MEAN CORPUSCULAR HEMOGLOBIN 32.7 pg (27.0-31.0); MEAN CORPUSCULAR HGB CONC 34.2 g/dL (33.0-37.0); MEAN PLATELET VOLUME 10.6 fL (7.2-11.7); MONO # 0.4 K/uL (0.0-0.8); MONO % 14.5 % (0.0-10.0); NRBC % 0.2 % (0.0-2.0); RED CELL DISTRIBUTION WIDTH 15.7 % (11.5-14.5); WHITE BLOOD COUNT 2.9 K/uL (4.8-10.8)
--- NOTE | 2017-07-16 15:59 | RAD ---
HISTORY: rapid COMPARISON: No prior. FINDINGS: LUNGS: No active pulmonary disease. PLEURA: No significant pleural effusion identified, no pneumothorax apparent. CARDIOVASCULAR: There is a small cardiac monitoring electrode suggested. Heart size probably top-normal. Minimal left ventricular enlargement possible. Aortic knob calcification as before. Change interval thoracic caliber and configuration. OSSEOUS STRUCTURES: No significant abnormalities. VISUALIZED UPPER ABDOMEN: Normal. OTHER FINDINGS: None. IMPRESSION: No active disease. No interval pathology noted
[2017-07-16 16:18] LABS: CHLORIDE 94 mmol/L (98-107); POTASSIUM 4.1 mmol/L (3.6-5.2); SODIUM 129 mmol/L (132-148)
[2017-07-16 16:20] LABS: ALB/GLOB RATIO 1.2 (1.0-2.1); ALKALINE PHOSPHATASE 58 U/L (38-126); AST/SGOT 153 U/L (17-59); BILIRUBIN,TOTAL 1.1 mg/dL (0.2-1.3); CARBON DIOXIDE 23 mmol/L (22-30); GFR AFRICAN-AMERICAN > 60; TOTAL PROTEIN 7.7 g/dL (6.3-8.3)
[2017-07-16 16:21] LABS: ALT/SGPT 39 U/L (21-72); BLOOD UREA NITROGEN 13 mg/dL (9-20); CALCIUM 9.2 mg/dl (8.6-10.4); CHOLESTEROL 191 mg/dL (0-199); GLUCOSE,RANDOM 114 mg/dL (75-110)
[2017-07-16 17:18] LABS: THYROID STIMULATING HORMONE 4.94 mIU/L (0.46-4.68)
[2017-07-16] MEDS: Lactated Ringer's 1,000 ML IV SCH ×2 (18:17→22:20)
[2017-07-16 19:20] LABS: VENOUS BLOOD GAS BASE EXCESS 2.8 mmol/L (0.0-2.0); VENOUS BLOOD GAS PCO2 47 mmHg (40-60); VENOUS BLOOD PH 7.39 (7.32-7.43)
--- NOTE | 2017-07-16 22:38 | CP.PCM.CON ---
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 Patient reports that just prior to arrival he was walking to a store when he syncopized. He notes that he has history of similar episodes and has an implantable loop recorder. He also notes daily alcohol and endorses drinking today. Past Medical History PMH: Anemia, Anxiety, Arthritis, CHF, Depression, Gastritis, Gastrointestinal Ulcer (PEPTIC), HTN, Pancreatitis, Peripheral Edema Denies: HIV, Kidney Stones, Chronic Kidney Disease, Seizures, Sexually Transmitted Disease Surgical History: - [facility] ALCOHOL DETOXIFICATION (05/03/13) DETOXIFICATION SERVICES FOR SUBSTANCE ABUSE TREATMENT (05/29/17) EXCISION OF DESCENDING COLON, ENDO, DIAGN (03/14/16) EXCISION OF STOMACH, ENDO, DIAGN (11/26/16) EXTIRPATION OF MATTER FROM LARGE INTESTINE, ENDO (01/09/17) GROUP PSYCHOTHERAPY (01/24/16) INSERT OF MONITOR DEV INTO CHEST SUBCU/FASCIA, OPEN APPROACH (12/18/16) MEASURE OF ARTERIAL PRESSURE, PERIPHERAL, BRUSH OR BROOM CUTTER APPROACH (12/18/16) MEASUREMENT OF CARDIAC RHYTHM, EXTERNAL APPROACH (12/18/16) TRANSFUSE NONAUT RED BLOOD CELLS IN PERIPH ART, PERC (01/09/17) TRANSFUSE NONAUT RED BLOOD CELLS IN PERIPH VEIN, PERC (07/28/16) Family History: States: Unknown Family Hx - Social History Hx Tobacco Use: No (quit 2 months now) Hx Alcohol Use: Yes (1/2 pint vodka/day) Hx Substance Use: No - Immunization History Hx Tetanus Toxoid Vaccination: No Hx Influenza Vaccination: No Hx Pneumococcal Vaccination: No Review Of Systems Constitutional: Negative for: Fever, Chills Eyes: Negative for: Redness ENT: Negative for: Throat Pain Cardiovascular: Positive for: Chest Pain, Other (Syncope ) Respiratory: Negative for: Shortness of Breath Gastrointestinal: Negative for: Nausea, Vomiting, Abdominal Pain Genitourinary: Negative for: Dysuria Musculoskeletal: Negative for: Back Pain Skin: Negative for: Rash, Lesions Neurological: Negative for: Weakness Psych: Positive for: Other (Alcohol Abuse). Negative for: Anxiety Physical Exam - Physical Exam Appears: Non-toxic, No Acute Distress Skin: Warm, Dry Head: Atraumatic, Normacephalic Eye(s): bilateral: Normal Inspection Oral Mucosa: Moist Neck: Trachea Midline, Supple Chest: Symmetrical, Other (Chest wall with implanted loop recorder) Cardiovascular: Rhythm Regular Respiratory: No Rales, No Rhonchi, No Wheezing Gastrointestinal/Abdominal: Soft, No Tenderness Back: No CVA Tenderness Extremity: Normal ROM Extremity: Bilateral: Atraumatic, No Pedal Edema, Normal Color And Temperature Pulses: Left Dorsalis Pedis: Normal, Right Dorsalis Pedis: Normal Neurological/Psych: Oriented x3, Normal Speech, Normal Cognition, Other (No focal deficits ) Gait: Unsteady Past Patient History - Infectious Disease Hx of Infectious Diseases: None - Past Medical History & Family History Past Medical History?: Yes - Past Social History Smoking Status: Never Smoked - CARDIAC Hx Congestive Heart Failure: Yes Hx Hypertension: Yes - PULMONARY Hx Respiratory Disorders: No - NEUROLOGICAL Hx Seizures: No - HEENT Hx HEENT Problems: Yes Hx Cataracts: Yes (Brandon.Cataract Extraction 2013) - RENAL Hx Chronic Kidney Disease: No Hx Kidney Stones: No - ENDOCRINE/METABOLIC Hx Endocrine Disorders: No - HEMATOLOGICAL/ONCOLOGICAL Hx Anemia: Yes Hx Human Immunodeficiency Virus (HIV): No - INTEGUMENTARY Hx Dermatological Problems: No - MUSCULOSKELETAL/RHEUMATOLOGICAL Hx Arthritis: Yes Hx Falls: Yes - GASTROINTESTINAL Hx Gastritis: Yes Hx Pancreatitis: Yes - GENITOURINARY/GYNECOLOGICAL Hx Sexually Transmitted Disorders: No - PSYCHIATRIC Hx Anxiety: Yes Hx Depression: Yes Hx Substance Use: No - SURGICAL HISTORY Hx Surgeries: Yes Hx Eye Surgery: Yes (Brandon. Cataract Extraction 2013) Other/Comment: "head injury" hx. "implanted loop recorder" - ANESTHESIA Hx Anesthesia: Yes Hx Anesthesia Reactions: No Hx Malignant Hyperthermia: No Meds Allergies/Adverse Reactions: Allergies Allergy/AdvReac Type Severity Reaction Status Date / Time Iodinated Contrast- Oral and Allergy Severe SWELLING Verified 07/11/17 20:03 IV Dye shellfish derived Allergy Intermediate RASH Verified 07/11/17 20:03 milk AdvReac Intermediate DIARRHEA Verified 07/11/17 20:03 - Medications Medications: Current Medications Acetaminophen (Tylenol 325mg Tab) 650 mg PO Q6 PRN PRN Reason: Pain, moderate (4-7) Last Admin: 07/13/17 23:49 Dose: 650 mg Folic Acid (Folic Acid) 1 mg PO DAILY [facility] Last Admin: 07/16/17 09:07 Dose: 1 mg Potassium Chloride/Dextrose/Sod Cl (Potassium Chl 20 Meq In D5-1/2ns) 1,000 mls @ 100 mls/hr IV .Q10H [facility] Last Admin: 07/12/17 08:32 Dose: Not Given Lactated Ringer's (Lactated Ringer's) 1,000 mls @ 200 mls/hr IV .Q5H [facility] Stop: 07/17/17 08:00 Last Admin: 07/16/17 22:20 Dose: Not Given Lorazepam (Ativan) 2 mg IVP Q4H PRN PRN Reason: Anxiety Last Admin: 07/13/17 17:14 Dose: 2 mg Lorazepam (Ativan) 1 mg IVP Q8 [facility] PRN Reason: Taper Stop: 07/18/17 07:59 Last Admin: 07/16/17 22:20 Dose: Not Given Magnesium Chloride (Slow-Mag) 128 mg PO BID [facility] Last Admin: 07/16/17 18:16 Dose: 128 mg Ondansetron HCl (Zofran Inj) 8 mg IVP Q6H PRN PRN Reason: Nausea/Vomiting Last Admin: 07/13/17 13:18 Dose: 8 mg Pantoprazole Sodium (Protonix Inj) 40 mg IVP Q12H [facility] Last Admin: 07/16/17 18:16 Dose: 40 mg Thiamine HCl (Vitamin B1 Tab) 100 mg PO DAILY [facility] Last Admin: 07/16/17 09:07 Dose: 100 mg Results - Vital Signs Recent Vital Signs: Last Vital Signs Temp 97.4 F L 07/16/17 16:00 Pulse 79 07/16/17 16:00 Resp 20 07/16/17 16:00 BP 102/80 07/16/17 16:00 Pulse Ox 100 07/16/17 16:00 - Labs Result Diagrams: 07/18/17 06:44 07/18/17 06:44 Labs: Laboratory Results - last 24 hr 07/16/17 07/16/17 07/16/17 07:07 07:07 15:02 WBC 2.6 L RBC 3.03 L Hgb 9.8 L Hct 28.5 L MCV 94.1 H MCH 32.3 H MCHC 34.3 RDW 15.6 H Plt Count 103 L D MPV 10.8 Neut % (Auto) Lymph % (Auto) [place] % (Auto) Eos % (Auto) Baso % (Auto) Neut # Lymph # [place] # Eos # Baso # pO2 VBG pH VBG pCO2 VBG HCO3 VBG Total CO2 VBG O2 Sat (Calc) VBG Base Excess VBG Potassium Glucose Lactate Sodium 131 L Potassium 4.4 Chloride 96 L Carbon Dioxide 26 Anion Gap 13 BUN 11 Creatinine 1.0 Est GFR ( Amer) > 60 Est GFR (Non-Af Amer) > 60 POC Glucose (mg/dL) 138 H Random Glucose 91 Calcium 8.9 Phosphorus 2.2 L Magnesium 1.6 Total Bilirubin 1.0 AST 119 H ALT 36 Alkaline Phosphatase 53 Total Creatine Kinase CK-MB (Mass) Troponin I, Quant Total Protein 7.0 Albumin 3.7 Globulin 3.3 Albumin/Globulin Ratio 1.1 Triglycerides Cholesterol LDL Cholesterol Direct HDL Cholesterol Lipase Free T4 TSH 3rd Generation Venous Blood Potassium Urine Opiates Screen Urine Methadone Screen Ur Barbiturates Screen Ur Phencyclidine Scrn Ur Amphetamines Screen U Benzodiazepines Scrn U Oth Cocaine Metabols U Cannabinoids Screen 07/16/17 07/16/17 07/16/17 15:50 15:50 15:50 WBC 2.9 L RBC 3.16 L Hgb 10.4 L Hct 30.3 L MCV 95.8 H MCH 32.7 H MCHC 34.2 RDW 15.7 H Plt Count 111 L MPV 10.6 Neut % (Auto) 60.9 Lymph % (Auto) 22.3 [place] % (Auto) 14.5 H Eos % (Auto) 1.5 Baso % (Auto) 0.8 Neut # 1.8 Lymph # 0.6 L Marathon # 0.4 Eos # 0.0 Baso # 0.0 pO2 VBG pH VBG pCO2 VBG HCO3 VBG Total CO2 VBG O2 Sat (Calc) VBG Base Excess VBG Potassium Glucose Lactate Sodium 129 L Potassium 4.1 Chloride 94 L Carbon Dioxide 23 Anion Gap 16 BUN 13 Creatinine 1.0 Est GFR ( Amer) > 60 Est GFR (Non-Af Amer) > 60 POC Glucose (mg/dL) Random Glucose 114 H Calcium 9.2 Phosphorus Magnesium Total Bilirubin 1.1 AST 153 H D ALT 39 Alkaline Phosphatase 58 Total Creatine Kinase 240 H CK-MB (Mass) 0.53 Troponin I, Quant 0.1370 H* Total Protein 7.7 Albumin 4.2 Globulin 3.5 Albumin/Globulin Ratio 1.2 Triglycerides 98 D Cholesterol 191 LDL Cholesterol Direct 96 HDL Cholesterol 71 H Lipase 78364 H Free T4 1.38 TSH 3rd Generation 4.94 H Venous Blood Potassium Urine Opiates Screen Urine Methadone Screen Ur Barbiturates Screen Ur Phencyclidine Scrn Ur Amphetamines Screen U Benzodiazepines Scrn U Oth Cocaine Metabols U Cannabinoids Screen 07/16/17 07/16/17 07/16/17 19:09 19:17 19:43 WBC RBC Hgb Hct MCV MCH MCHC RDW Plt Count MPV Neut % (Auto) Lymph % (Auto) Marathon % (Auto) Eos % (Auto) Baso % (Auto) Neut # Lymph # Marathon # Eos # Baso # pO2 32 VBG pH 7.39 VBG pCO2 47 VBG HCO3 26.1 VBG Total CO2 29.9 H VBG O2 Sat (Calc) 67.1 H VBG Base Excess 2.8 H VBG Potassium 4.1 Glucose 117 H Lactate 1.6 Sodium 133.0 Potassium Chloride 102.0 Carbon Dioxide Anion Gap BUN Creatinine Est GFR ( Amer) Est GFR (Non-Af Amer) POC Glucose (mg/dL) Random Glucose Calcium Phosphorus Magnesium Total Bilirubin AST ALT Alkaline Phosphatase Total Creatine Kinase 205 H CK-MB (Mass) 0.47 Troponin I, Quant 0.1120 Total Protein Albumin Globulin Albumin/Globulin Ratio Triglycerides Cholesterol LDL Cholesterol Direct HDL Cholesterol Lipase Free T4 TSH 3rd Generation Venous Blood Potassium 4.1 Urine Opiates Screen Negative Urine Methadone Screen Negative Ur Barbiturates Screen Negative Ur Phencyclidine Scrn Negative Ur Amphetamines Screen Negative U Benzodiazepines Scrn Positive U Oth Cocaine Metabols Negative U Cannabinoids Screen Negative Assessment & Plan - Assessment and Plan (Free Text) Assessment: 61yo M admitted for EtOH withdrawal/AMS and pancreatitis, continue with CIW, ativan taper, thiamin and folate. CT of the abdomen is unremarkable and also lactate is within normal limits. replaced Mag, physical therapy will continue. EtOH Withdrawal/Dependence/Abuse 07/16: patient states he wants to go to rehab; was accepted to [facility]; f/ u with case management 07/14: Patient on CIWA protocol and Ativan taper, still on liquid diet. continue thiamin folate, fall precautions. EtOH 270 on admission -patient drinks 1-2L of vodka daily -CIWA protocol, Thiamine/Folate Daily, Ativan taper -NPO diet for now Low Magnesium; resolved 07/15; Mag is 1.5 today, more Mag given, replace as needed. 07/14: 1 gram of Mag given in 2 bags, recheck tomorrow. Chest pain; resolved -resolved with CIWA protocol being followed -EKG wnl and ROMIx3 negative -telemetry monitoring -monitor electrolytes Anemia and pancytopenia;chronic and 2/2 to bone marrow suppression from excessive EtOH intake 07/16: 9.8 today; stable 07/15: improved to 9.5, continue to monitor. 07/14: Transfuse 2 units of PRBCs, Hbg today is 7.7. 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 Dillard. Please refer to full report. Will need repeat echo 07/16: patient tolerated regular diet for breakfast 07/15: full liquid diet, IV fluids, CT scan negative 07/14: patient still having abdominal pain, clear liquid diet Lipase was 800 today -Lactated ringers 200ml/hr until 9pm tonight -NPO for now; CLD for dinner; patient requesting to eat -please avoid narcotics -watch for decreasing BUN in setting of pancreatitis HepC; chronic untreated 07/14: Patient to follow up with GI as outpatient patient will need outpatient GI for Hep C Treatment Proph hold DVT proph in setting of pancytopenia/thrombocytopenia; c/w SCD -Aspirin daily -Pepcid PO daily -CIWA/patient wants to go to rehab Patient needs PT eval before placement into rehab/[facility]; f/u recs and will d/c accordingly
[2017-07-17] MEDS: Lactated Ringer's 1,000 ML IV SCH ×2 (00:16→06:00)
[2017-07-17 06:50] LABS: BASO % 0.5 % (0.0-2.0); EOS % 1.7 % (0.0-4.0); HEMATOCRIT 26.1 % (35.0-51.0); LYMPH # 0.7 K/uL (1.0-4.3); LYMPH % 25.8 % (20.0-40.0); MEAN CELL VOLUME 95.4 fL (80.0-94.0); MEAN CORPUSCULAR HEMOGLOBIN 32.5 pg (27.0-31.0); MEAN PLATELET VOLUME 10.3 fL (7.2-11.7); MONO # 0.3 K/uL (0.0-0.8); MONO % 12.9 % (0.0-10.0); NRBC % 0.1 % (0.0-2.0); RED CELL DISTRIBUTION WIDTH 15.6 % (11.5-14.5); WHITE BLOOD COUNT 2.7 K/uL (4.8-10.8)
[2017-07-17 06:55] LABS: INR 1.1
[2017-07-17 07:02] LABS: CHLORIDE 96 mmol/L (98-107); POTASSIUM 3.9 mmol/L (3.6-5.2); SODIUM 131 mmol/L (132-148)
[2017-07-17 07:04] LABS: ALKALINE PHOSPHATASE 48 U/L (38-126); AST/SGOT 107 U/L (17-59); BLOOD UREA NITROGEN 9 mg/dL (9-20); CARBON DIOXIDE 24 mmol/L (22-30); GFR AFRICAN-AMERICAN > 60; TOTAL PROTEIN 7.1 g/dL (6.3-8.3)
[2017-07-17 07:05] LABS: ALT/SGPT 43 U/L (21-72); CALCIUM 8.9 mg/dl (8.6-10.4); GLUCOSE,RANDOM 84 mg/dL (75-110); MAGNESIUM 1.3 mg/dL (1.6-2.3); PHOSPHOROUS 2.1 mg/dL (2.5-4.5)
[2017-07-17] MEDS ORDERED: Lactated Ringer's 1,000 ML IV ONE (07:15)
[2017-07-17] MEDS: Magnesium Sulfate 1 gm in D5W 1 GM/100 ML BAG IVPB SCH ×2 (07:25→07:45)
[2017-07-17] MEDS ORDERED: DiphenhydrAMINE 50 mg/ml Inj ONE (09:05)
[2017-07-17] MEDS ORDERED: Midazolam 2 MG/2 ML VIAL ONE (09:29)
[2017-07-17] MEDS: Magnesium Chloride 64 mg ER Tab PO SCH ×2 (11:35→18:00)
--- NOTE | 2017-07-17 11:45 | CARD ---
APPROVED REPORT EKG Measurement Heart [id number] 212P22 [id number] <Conclusion> Sinus rhythm with 1st degree AV block ST & Marked T wave abnormality, consider anterolateral ischemia Prolonged QT Abnormal ECG
[2017-07-17] MEDS ORDERED: Magnesium Sulfate 1 gm in D5W 1 GM/100 ML BAG IVPB SCH (12:00)
--- NOTE | 2017-07-17 13:34 | CP.PCM.PN ---
Subjective - Date & Time of Evaluation Date of Evaluation: 07/17/17 Time of Evaluation: 13:33 - Subjective Subjective: Patient went for cath today; as per Dr. Dillard patient tolerated the cath well and had clean coronaries which was expected; please refer to full report; will need repeat echo to evaluate systolic function. Has no complaints. NPO for the rest of today; can consider CLD tomorrow if has no more abdominal pain and is hungry. Objective - Vital Signs/Intake and Output Vital Signs (last 24 hours): Temp Pulse Resp BP Pulse Ox 98.7 F 74 20 107/76 97 07/17/17 07:00 07/17/17 07:00 07/17/17 07:00 07/17/17 07:00 07/17/17 07:00 Intake and Output: 07/17/17 07/17/17 06:59 18:59 Intake Total 2640 Output Total 1900 Balance 740 - Medications Medications: Current Medications Acetaminophen (Tylenol 325mg Tab) 650 mg PO Q6 PRN PRN Reason: Pain, moderate (4-7) Last Admin: 07/13/17 23:49 Dose: 650 mg Aspirin (Ecotrin) 81 mg PO DAILY [facility] Last Admin: 07/17/17 11:35 Dose: 81 mg Folic Acid (Folic Acid) 1 mg PO DAILY [facility] Last Admin: 07/17/17 11:35 Dose: 1 mg Potassium Chloride/Dextrose/Sod Cl (Potassium Chl 20 Meq In D5-1/2ns) 1,000 mls @ 100 mls/hr IV .Q10H [facility] Last Admin: 07/12/17 08:32 Dose: Not Given Lorazepam (Ativan) 2 mg IVP Q4H PRN PRN Reason: Anxiety Last Admin: 07/13/17 17:14 Dose: 2 mg Lorazepam (Ativan) 1 mg IVP Q24H [facility] PRN Reason: Taper Stop: 07/18/17 07:59 Last Admin: 07/17/17 08:00 Dose: Not Given Losartan Potassium (Cozaar) 25 mg PO DAILY [facility] Last Admin: 07/17/17 11:35 Dose: 25 mg Magnesium Chloride (Slow-Mag) 128 mg PO BID [facility] Last Admin: 07/17/17 11:35 Dose: 128 mg Ondansetron HCl (Zofran Inj) 8 mg IVP Q6H PRN PRN Reason: Nausea/Vomiting Last Admin: 07/13/17 13:18 Dose: 8 mg Pantoprazole Sodium (Protonix Inj) 40 mg IVP Q12H [facility] Last Admin: 07/17/17 06:00 Dose: 40 mg Thiamine HCl (Vitamin B1 Tab) 100 mg PO DAILY [facility] Last Admin: 07/17/17 11:35 Dose: 100 mg - Labs Labs: 07/17/17 06:37 07/17/17 06:37 PT 12.3 SECONDS (9.7-12.2) H 07/17/17 06:37 INR 1.1 07/17/17 06:37 APTT 28 SECONDS (21-34) 07/11/17 20:46 - Constitutional Appears: Non-toxic - Head Exam Head Exam: ATRAUMATIC - Eye Exam Eye Exam: EOMI - ENT Exam ENT Exam: Mucous Membranes Moist - Neck Exam Neck Exam: Full ROM. absent: Lymphadenopathy - Respiratory Exam Respiratory Exam: Clear to Ausculation Bilateral - Cardiovascular Exam Cardiovascular Exam: REGULAR RHYTHM - GI/Abdominal Exam GI & Abdominal Exam: Soft, Normal Bowel Sounds - Rectal Exam Rectal Exam: Deferred - Extremities Exam Extremities Exam: absent: Calf Tenderness - Back Exam Back Exam: absent: CVA tenderness (L), CVA tenderness (R) - Neurological Exam Neurological Exam: Awake, Oriented x3 Assessment and Plan - Assessment and Plan (Free Text) Assessment: 61yo M admitted for EtOH withdrawal/AMS and pancreatitis, continue with CIW, ativan taper, thiamin and folate. CT of the abdomen is unremarkable and also lactate is within normal limits. replaced Mag, physical therapy will continue. EtOH Withdrawal/Dependence/Abuse 07/16: patient states he wants to go to rehab; was accepted to [facility]; f/ u with case management 07/14: Patient on CIWA protocol and Ativan taper, still on liquid diet. continue thiamin folate, fall precautions. EtOH 270 on admission -patient drinks 1-2L of vodka daily -CIWA protocol, Thiamine/Folate Daily, Ativan taper -NPO diet for now Low Magnesium; resolved 07/15; Mag is 1.5 today, more Mag given, replace as needed. 07/14: 1 gram of Mag given in 2 bags, recheck tomorrow. Chest pain; resolved -resolved with CIWA protocol being followed -EKG wnl and ROMIx3 negative -telemetry monitoring -monitor electrolytes Anemia and pancytopenia;chronic and 2/2 to bone marrow suppression from excessive EtOH intake 07/16: 9.8 today; stable 07/15: improved to 9.5, continue to monitor. 07/14: Transfuse 2 units of PRBCs, Hbg today is 7.7. 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 Dillard. Please refer to full report. Will need repeat echo 07/16: patient tolerated regular diet for breakfast 07/15: full liquid diet, IV fluids, CT scan negative 07/14: patient still having abdominal pain, clear liquid diet Lipase was 800 today -Lactated ringers 200ml/hr until 9pm tonight -NPO for now; CLD for dinner; patient requesting to eat -please avoid narcotics -watch for decreasing BUN in setting of pancreatitis HepC; chronic untreated 07/14: Patient to follow up with GI as outpatient patient will need outpatient GI for Hep C Treatment Proph hold DVT proph in setting of pancytopenia/thrombocytopenia; c/w SCD -Aspirin daily -Pepcid PO daily -CIWA/patient wants to go to rehab Patient needs PT eval before placement into rehab/[facility]; f/u recs and will d/c accordingly All management as per Dr. Rosen
--- NOTE | 2017-07-18 00:09 | CP.PCM.PN ---
Subjective - Date & Time of Evaluation Date of Evaluation: 07/18/17 Time of Evaluation: 12:00 - Subjective Subjective: Patient s/p Cath Patent Coronaries EF 30% Check ECHO Will interrogate LINQ CHF treatment Objective - Vital Signs/Intake and Output Vital Signs (last 24 hours): Temp Pulse Resp BP Pulse Ox 98.0 F 70 18 113/75 100 07/17/17 16:00 07/17/17 16:00 07/17/17 16:00 07/17/17 16:00 07/17/17 16:00 Intake and Output: 07/17/17 07/18/17 18:59 06:59 Intake Total 2300 Output Total 800 Balance 1500 - Medications Medications: Current Medications Acetaminophen (Tylenol 325mg Tab) 650 mg PO Q6 PRN PRN Reason: Pain, moderate (4-7) Last Admin: 07/13/17 23:49 Dose: 650 mg Aspirin (Ecotrin) 81 mg PO DAILY [facility] Last Admin: 07/17/17 11:35 Dose: 81 mg Folic Acid (Folic Acid) 1 mg PO DAILY [facility] Last Admin: 07/17/17 11:35 Dose: 1 mg Potassium Chloride/Dextrose/Sod Cl (Potassium Chl 20 Meq In D5-1/2ns) 1,000 mls @ 100 mls/hr IV .Q10H [facility] Last Admin: 07/12/17 08:32 Dose: Not Given Lorazepam (Ativan) 2 mg IVP Q4H PRN PRN Reason: Anxiety Last Admin: 07/13/17 17:14 Dose: 2 mg Lorazepam (Ativan) 1 mg IVP Q24H [facility] PRN Reason: Taper Stop: 07/18/17 07:59 Last Admin: 07/17/17 08:00 Dose: Not Given Losartan Potassium (Cozaar) 25 mg PO DAILY [facility] Last Admin: 07/17/17 11:35 Dose: 25 mg Magnesium Chloride (Slow-Mag) 128 mg PO BID [facility] Last Admin: 07/17/17 18:00 Dose: Not Given Ondansetron HCl (Zofran Inj) 8 mg IVP Q6H PRN PRN Reason: Nausea/Vomiting Last Admin: 07/13/17 13:18 Dose: 8 mg Pantoprazole Sodium (Protonix Inj) 40 mg IVP Q12H [facility] Last Admin: 07/17/17 17:37 Dose: 40 mg Thiamine HCl (Vitamin B1 Tab) 100 mg PO DAILY [facility] Last Admin: 07/17/17 11:35 Dose: 100 mg - Labs Labs: 07/17/17 06:37 07/17/17 06:37 PT 12.3 SECONDS (9.7-12.2) H 07/17/17 06:37 INR 1.1 07/17/17 06:37 APTT 28 SECONDS (21-34) 07/11/17 20:46
[2017-07-18] MEDS: Lactated Ringer's 1,000 ML IV SCH ×3 (00:14→18:46)
[2017-07-18 06:52] LABS: HEMATOCRIT 23.9 % (35.0-51.0); MEAN CELL VOLUME 95.4 fL (80.0-94.0); MEAN CORPUSCULAR HEMOGLOBIN 32.1 pg (27.0-31.0); MEAN CORPUSCULAR HGB CONC 33.7 g/dL (33.0-37.0); MEAN PLATELET VOLUME 10.2 fL (7.2-11.7); RED CELL DISTRIBUTION WIDTH 15.9 % (11.5-14.5); WHITE BLOOD COUNT 3.2 K/uL (4.8-10.8)
[2017-07-18 07:53] LABS: CHLORIDE 99 mmol/L (98-107); POTASSIUM 3.9 mmol/L (3.6-5.2); SODIUM 131 mmol/L (132-148)
[2017-07-18 07:55] LABS: ALB/GLOB RATIO 1.4 (1.0-2.1); ALKALINE PHOSPHATASE 51 U/L (38-126); AST/SGOT 108 U/L (17-59); BILIRUBIN,TOTAL 0.7 mg/dL (0.2-1.3); CARBON DIOXIDE 23 mmol/L (22-30); GFR AFRICAN-AMERICAN > 60; TOTAL PROTEIN 5.7 g/dL (6.3-8.3)
[2017-07-18 07:56] LABS: ALT/SGPT 42 U/L (21-72); BLOOD UREA NITROGEN 9 mg/dL (9-20); CALCIUM 8.4 mg/dl (8.6-10.4); GLUCOSE,RANDOM 94 mg/dL (75-110); MAGNESIUM 1.3 mg/dL (1.6-2.3); PHOSPHOROUS 1.8 mg/dL (2.5-4.5)
[2017-07-18] MEDS: Magnesium Chloride 64 mg ER Tab PO SCH ×2 (09:21→18:38)
--- NOTE | 2017-07-18 14:11 | CARD ---
APPROVED REPORT EKG Measurement Heart [id number] 216P10 [id number] <Conclusion> Sinus rhythm with 1st degree AV block ST & Marked T wave abnormality, consider anterolateral ischemia Prolonged QT Abnormal ECG
--- NOTE | 2017-07-18 14:15 | CARD ---
APPROVED REPORT EKG Measurement Heart [id number] [place] 230P31 [id number] <Conclusion> Sinus rhythm with 1st degree AV block with premature atrial complexes ST & Marked T wave abnormality, consider anterolateral ischemia Prolonged QT Abnormal ECG
--- NOTE | 2017-07-18 23:06 | CP.PCM.PN ---
Subjective - Date & Time of Evaluation Date of Evaluation: 07/18/17 Time of Evaluation: 16:10 - Subjective Subjective: Patient seen and evaluated Feels better Denies chest pain and dyspnea Review Of Systems Constitutional: Negative for: Fever, Chills Eyes: Negative for: Redness ENT: Negative for: Throat Pain Cardiovascular: Positive for: Chest Pain, Other (Syncope ) Respiratory: Negative for: Shortness of Breath Gastrointestinal: Negative for: Nausea, Vomiting, Abdominal Pain Genitourinary: Negative for: Dysuria Musculoskeletal: Negative for: Back Pain Skin: Negative for: Rash, Lesions Neurological: Negative for: Weakness Psych: Positive for: Other (Alcohol Abuse). Negative for: Anxiety Physical Exam - Physical Exam Appears: Non-toxic, No Acute Distress Skin: Warm, Dry Head: Atraumatic, Normacephalic Eye(s): bilateral: Normal Inspection Oral Mucosa: Moist Neck: Trachea Midline, Supple Chest: Symmetrical, Other (Chest wall with implanted loop recorder) Cardiovascular: Rhythm Regular Respiratory: No Rales, No Rhonchi, No Wheezing Gastrointestinal/Abdominal: Soft, No Tenderness Back: No CVA Tenderness Extremity: Normal ROM Extremity: Bilateral: Atraumatic, No Pedal Edema, Normal Color And Temperature Pulses: Left Dorsalis Pedis: Normal, Right Dorsalis Pedis: Normal Neurological/Psych: Oriented x3, Normal Speech, Normal Cognition, Other (No focal deficits ) Gait: Unsteady Objective - Vital Signs/Intake and Output Vital Signs (last 24 hours): Temp Pulse Resp BP Pulse Ox 97.9 F 74 20 116/79 99 07/18/17 15:17 07/18/17 19:30 07/18/17 15:17 07/18/17 15:17 07/18/17 15:17 - Medications Medications: Current Medications Acetaminophen (Tylenol 325mg Tab) 650 mg PO Q6 PRN PRN Reason: Pain, moderate (4-7) Last Admin: 07/13/17 23:49 Dose: 650 mg Aspirin (Ecotrin) 81 mg PO DAILY [facility] Last Admin: 07/18/17 09:22 Dose: 81 mg Carvedilol (Coreg) 3.125 mg PO BID [facility] Last Admin: 07/18/17 18:38 Dose: 3.125 mg Folic Acid (Folic Acid) 1 mg PO DAILY [facility] Last Admin: 07/18/17 09:21 Dose: 1 mg Potassium Chloride/Dextrose/Sod Cl (Potassium Chl 20 Meq In D5-1/2ns) 1,000 mls @ 100 mls/hr IV .Q10H [facility] Last Admin: 07/12/17 08:32 Dose: Not Given Lorazepam (Ativan) 2 mg IVP Q4H PRN PRN Reason: Anxiety Last Admin: 07/13/17 17:14 Dose: 2 mg Losartan Potassium (Cozaar) 25 mg PO DAILY [facility] Last Admin: 07/18/17 09:22 Dose: 25 mg Magnesium Chloride (Slow-Mag) 128 mg PO BID [facility] Last Admin: 07/18/17 18:38 Dose: 128 mg Ondansetron HCl (Zofran Inj) 8 mg IVP Q6H PRN PRN Reason: Nausea/Vomiting Last Admin: 07/13/17 13:18 Dose: 8 mg Pantoprazole Sodium (Protonix Inj) 40 mg IVP Q12H [facility] Last Admin: 07/18/17 18:46 Dose: 40 mg Thiamine HCl (Vitamin B1 Tab) 100 mg PO DAILY [facility] Last Admin: 07/18/17 09:21 Dose: 100 mg - Labs Labs: 07/18/17 06:44 07/18/17 06:44 PT 12.3 SECONDS (9.7-12.2) H 07/17/17 06:37 INR 1.1 07/17/17 06:37 APTT 28 SECONDS (21-34) 07/11/17 20:46 Assessment and Plan - Assessment and Plan (Free Text) Assessment: Patient s/p Cath Acute systolic CHF (EF 25-30%) 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
[2017-07-19 08:38] LABS: HEMATOCRIT 24.8 % (35.0-51.0); MEAN CELL VOLUME 95.7 fL (80.0-94.0); MEAN CORPUSCULAR HEMOGLOBIN 32.5 pg (27.0-31.0); MEAN PLATELET VOLUME 10.4 fL (7.2-11.7); RED CELL DISTRIBUTION WIDTH 15.6 % (11.5-14.5); WHITE BLOOD COUNT 3.5 K/uL (4.8-10.8)
[2017-07-19 09:02] LABS: CHLORIDE 98 mmol/L (98-107); POTASSIUM 3.8 mmol/L (3.6-5.2); SODIUM 129 mmol/L (132-148)
[2017-07-19 09:04] LABS: ALB/GLOB RATIO 1.3 (1.0-2.1); ALKALINE PHOSPHATASE 54 U/L (38-126); AST/SGOT 95 U/L (17-59); BILIRUBIN,TOTAL 0.7 mg/dL (0.2-1.3); BLOOD UREA NITROGEN 10 mg/dL (9-20); CARBON DIOXIDE 24 mmol/L (22-30); GFR AFRICAN-AMERICAN > 60; GLUCOSE,RANDOM 85 mg/dL (75-110); PHOSPHOROUS 1.5 mg/dL (2.5-4.5); TOTAL PROTEIN 6.1 g/dL (6.3-8.3)
[2017-07-19 09:05] LABS: ALT/SGPT 45 U/L (21-72); CALCIUM 8.4 mg/dl (8.6-10.4); MAGNESIUM 1.1 mg/dL (1.6-2.3)
[2017-07-19] MEDS: Magnesium Chloride 64 mg ER Tab PO SCH ×2 (09:08→17:49)
--- NOTE | 2017-07-19 09:33 | CARDCATH ---
PROCEDURE DATE: 07/17/2017 PROCEDURES: 1. Left heart catheterization and left ventricle angiogram. 2. Coronary angiogram. 3. Radiological supervision and radiological interpretation of the coronary angiogram and left ventricle angiogram. CLINICAL INDICATIONS: 1. Syncope. 2. Acute systolic congestive heart failure. 3. Hypertension. 4. Chest pain. REFERRING PHYSICIAN: Familia Rosen MD PERFORMING PHYSICIAN: Louis Dillard MD PROCEDURE: The patient was premedicated for contrast allergy. After informed consent, the patient was prepped and draped in the usual sterile fashion, 2% lidocaine was given in the right groin for local anesthesia. Using micropuncture technique, 6-Sammarinese sheath was introduced into right common femoral artery. A 6-Sammarinese JL4 diagnostic catheter engaged into left main coronary artery. Contrast injected and left coronary angiogram was performed. 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 A AL1 5-Sammarinese catheter engaged into right coronary artery. Contrast injected and right coronary angiogram was performed. A 6-Sammarinese pigtail inserted into left ventricle across the aortic valve. Using the power injector, LV angiogram was performed. The patient tolerated the procedure well. Post-procedure Perclose suture deployed with excellent hemostasis. FINDINGS: 1. Left main coronary artery is patent. 2. LAD and diagonal branches are patent. 3. Left circumflex and marginal branches are patent. 4. 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 However, the right coronary is patent. 5. Dilated cardiomyopathy with LVEF of 20% to 25%. EDP is 23 and no gradient across aortic valve. CONCLUSION: 1. Abnormal cardiac catheterization. 2. Dilated cardiomyopathy with ejection fraction of 20% to 25%. 3. Patent coronaries. Louis Dillard MD
--- NOTE | 2017-07-19 22:12 | CP.PCM.PN ---
Subjective - Date & Time of Evaluation Date of Evaluation: 07/19/17 Time of Evaluation: 13:45 - Subjective Subjective: Patient seen and evaluated Improved breathing For LifeVest tomorrow Out patient ICD eval after 3 months Objective - Vital Signs/Intake and Output Vital Signs (last 24 hours): Temp Pulse Resp BP Pulse Ox 98.6 F 75 20 108/62 96 07/19/17 15:19 07/19/17 15:19 07/19/17 15:19 07/19/17 15:19 07/19/17 15:19 - Medications Medications: Current Medications Acetaminophen (Tylenol 325mg Tab) 650 mg PO Q6 PRN PRN Reason: Pain, moderate (4-7) Last Admin: 07/13/17 23:49 Dose: 650 mg Aspirin (Ecotrin) 81 mg PO DAILY [facility] Last Admin: 07/19/17 09:07 Dose: 81 mg Carvedilol (Coreg) 3.125 mg PO BID [facility] Last Admin: 07/19/17 17:49 Dose: 3.125 mg Folic Acid (Folic Acid) 1 mg PO DAILY [facility] Last Admin: 07/19/17 09:08 Dose: 1 mg Potassium Chloride/Dextrose/Sod Cl (Potassium Chl 20 Meq In D5-1/2ns) 1,000 mls @ 100 mls/hr IV .Q10H [facility] Last Admin: 07/12/17 08:32 Dose: Not Given Losartan Potassium (Cozaar) 25 mg PO DAILY [facility] Last Admin: 07/19/17 09:07 Dose: 25 mg Magnesium Chloride (Slow-Mag) 128 mg PO BID [facility] Last Admin: 07/19/17 17:49 Dose: 128 mg Ondansetron HCl (Zofran Inj) 8 mg IVP Q6H PRN PRN Reason: Nausea/Vomiting Last Admin: 07/13/17 13:18 Dose: 8 mg Pantoprazole Sodium (Protonix Inj) 40 mg IVP Q12H [facility] Last Admin: 07/19/17 17:48 Dose: 40 mg Thiamine HCl (Vitamin B1 Tab) 100 mg PO DAILY [facility] Last Admin: 07/19/17 09:08 Dose: 100 mg - Labs Labs: 07/19/17 08:20 07/19/17 08:20 PT 12.3 SECONDS (9.7-12.2) H 07/17/17 06:37 INR 1.1 07/17/17 06:37 APTT 28 SECONDS (21-34) 07/11/17 20:46
[2017-07-20 07:29] LABS: HEMATOCRIT 24.1 % (35.0-51.0); MEAN CELL VOLUME 95.6 fL (80.0-94.0); MEAN CORPUSCULAR HEMOGLOBIN 32.5 pg (27.0-31.0); MEAN PLATELET VOLUME 9.8 fL (7.2-11.7); RED CELL DISTRIBUTION WIDTH 15.8 % (11.5-14.5); WHITE BLOOD COUNT 3.4 K/uL (4.8-10.8)
[2017-07-20 07:52] LABS: CHLORIDE 98 mmol/L (98-107); SODIUM 130 mmol/L (132-148)
[2017-07-20 07:54] LABS: GFR AFRICAN-AMERICAN > 60
[2017-07-20 07:55] LABS: ALB/GLOB RATIO 1.3 (1.0-2.1); ALKALINE PHOSPHATASE 55 U/L (38-126); ALT/SGPT 37 U/L (21-72); AST/SGOT 64 U/L (17-59); BILIRUBIN,TOTAL 0.7 mg/dL (0.2-1.3); BLOOD UREA NITROGEN 12 mg/dL (9-20); CALCIUM 8.6 mg/dl (8.6-10.4); CARBON DIOXIDE 24 mmol/L (22-30); GLUCOSE,RANDOM 94 mg/dL (75-110); PHOSPHOROUS 1.6 mg/dL (2.5-4.5); TOTAL PROTEIN 5.9 g/dL (6.3-8.3)
[2017-07-20 07:56] LABS: MAGNESIUM 1.1 mg/dL (1.6-2.3)
[2017-07-20] MEDS: Magnesium Chloride 64 mg ER Tab PO SCH ×2 (10:25→18:28)
[2017-07-20] MEDS: Magnesium Sulfate 1 gm in D5W 1 GM/100 ML BAG IVPB SCH ×2 (10:27→12:17)
--- NOTE | 2017-07-20 13:04 | CP.PCM.PN ---
Subjective - Date & Time of Evaluation Date of Evaluation: 07/20/17 Time of Evaluation: 13:00 - Subjective Subjective: Progress note. Attending: Dr. Rosen Pt seen and examined at bedside. No acute distress. No events overnight. Pt feeling better, no fever, some chills. Will put in IV iron. Objective - Vital Signs/Intake and Output Vital Signs (last 24 hours): Temp Pulse Resp BP Pulse Ox 98.1 F 71 18 109/70 99 07/20/17 09:14 07/20/17 09:15 07/20/17 09:14 07/20/17 09:14 07/20/17 09:14 Intake and Output: 07/20/17 07/20/17 06:59 18:59 Intake Total 240 Output Total 200 Balance 40 - Medications Medications: Current Medications Acetaminophen (Tylenol 325mg Tab) 650 mg PO Q6 PRN PRN Reason: Pain, moderate (4-7) Last Admin: 07/20/17 06:35 Dose: 650 mg Aspirin (Ecotrin) 81 mg PO DAILY [facility] Last Admin: 07/20/17 10:24 Dose: 81 mg Carvedilol (Coreg) 3.125 mg PO BID [facility] Last Admin: 07/20/17 10:24 Dose: 3.125 mg Folic Acid (Folic Acid) 1 mg PO DAILY [facility] Last Admin: 07/20/17 10:24 Dose: 1 mg Potassium Chloride/Dextrose/Sod Cl (Potassium Chl 20 Meq In D5-1/2ns) 1,000 mls @ 100 mls/hr IV .Q10H [facility] Last Admin: 07/12/17 08:32 Dose: Not Given Losartan Potassium (Cozaar) 25 mg PO DAILY [facility] Last Admin: 07/20/17 10:24 Dose: 25 mg Magnesium Chloride (Slow-Mag) 128 mg PO BID [facility] Last Admin: 07/20/17 10:25 Dose: 128 mg Ondansetron HCl (Zofran Inj) 8 mg IVP Q6H PRN PRN Reason: Nausea/Vomiting Last Admin: 07/13/17 13:18 Dose: 8 mg Pantoprazole Sodium (Protonix Inj) 40 mg IVP Q12H [facility] Thiamine HCl (Vitamin B1 Tab) 100 mg PO DAILY [facility] Last Admin: 07/20/17 10:24 Dose: 100 mg - Labs Labs: 07/20/17 07:16 07/20/17 07:16 PT 12.3 SECONDS (9.7-12.2) H 07/17/17 06:37 INR 1.1 07/17/17 06:37 APTT 28 SECONDS (21-34) 07/11/17 20:46 - Constitutional Appears: Non-toxic, No Acute Distress - Head Exam Head Exam: ATRAUMATIC, NORMAL INSPECTION, NORMOCEPHALIC - Eye Exam Eye Exam: EOMI - ENT Exam ENT Exam: Mucous Membranes Moist - Respiratory Exam Respiratory Exam: Clear to Ausculation Bilateral, NORMAL BREATHING PATTERN - Cardiovascular Exam Cardiovascular Exam: +S1, +S2 - GI/Abdominal Exam GI & Abdominal Exam: Soft, Normal Bowel Sounds. absent: Tenderness - Extremities Exam Extremities Exam: Full ROM, Normal Inspection - Neurological Exam Neurological Exam: Alert, Awake, Oriented x3 - Psychiatric Exam Psychiatric exam: Normal Affect, Normal Mood - Skin Skin Exam: Dry, Intact, Normal Color, Warm Assessment and Plan - Assessment and Plan (Free Text) Assessment: This is a 61 year old male admitted for EtOH withdrawal/AMS and pancreatitis, continue with CIW, ativan taper, thiamin and folate. CT of the abdomen is unremarkable and also lactate is within normal limits. replaced Mag, physical therapy will continue. EtOH Withdrawal/Dependence/Abuse -continue MVs and folic acid -continue thiamine -continue D5 1/2 NS -[facility] protocol Hypomagnesemia -will replete; continue to monitor Chest pain; resolved -resolved with [facility] protocol being followed -EKG wnl and ROMIx3 negative -telemetry monitoring -monitor electrolytes Anemia and pancytopenia;chronic and 2/2 to bone marrow suppression from excessive EtOH intake -s/p transfusion of 2 units -in setting of chronic EtOH use the patient will need to stop drinking -slight microscopic hematuria on UA; will repeat -recommending outpatient cytology for f/u; patient was a smoker -holding DVT Proph 2/2 to thrombocytopenia Pancreatitis; acute and resolving -continue fluids 07/17: patient had [employer] HAND[employer]ER on 07/16 2/2 to pancreatitis; had demand ischemia 2/2 to vasovagal episode and went for cath today that was clean as per Dr. Dillard. Please refer to full report. Will need repeat echo 07/16: patient tolerated regular diet for breakfast 07/15: full liquid diet, IV fluids, CT scan negative 07/14: patient still having abdominal pain, clear liquid diet Lipase was 800 today -Lactated ringers 200ml/hr until 9pm tonight -NPO for now; CLD for dinner; patient requesting to eat -please avoid narcotics -watch for decreasing BUN in setting of pancreatitis HepC; chronic untreated patient will need outpatient GI for Hep C Treatment Proph hold DVT proph in setting of pancytopenia/thrombocytopenia; c/w SCD -Aspirin daily -Pepcid PO daily -CIWA/patient wants to go to rehab Patient needs PT eval before placement into rehab/[facility]; f/u recs and will d/c accordingly All management as per Dr. Rosen
--- NOTE | 2017-07-20 22:36 | CP.PCM.PN ---
Subjective - Date & Time of Evaluation Date of Evaluation: 07/20/17 Time of Evaluation: 17:15 - Subjective Subjective: Patient seen and evaluated Patient with Life Vest Out patient management for cardiology Objective - Vital Signs/Intake and Output Vital Signs (last 24 hours): Temp Pulse Resp BP Pulse Ox 97.9 F 74 20 116/76 98 07/20/17 15:51 07/20/17 15:51 07/20/17 15:51 07/20/17 15:51 07/20/17 15:51 - Medications Medications: Current Medications Acetaminophen (Tylenol 325mg Tab) 650 mg PO Q6 PRN PRN Reason: Pain, moderate (4-7) Last Admin: 07/20/17 06:35 Dose: 650 mg Aspirin (Ecotrin) 81 mg PO DAILY [facility] Last Admin: 07/20/17 10:24 Dose: 81 mg Carvedilol (Coreg) 3.125 mg PO BID [facility] Last Admin: 07/20/17 18:29 Dose: 3.125 mg Ferric Sodium Gluconate Complex (Ferrlecit) 125 mg IVPB DAILY [facility] Stop: 07/29/17 10:01 Folic Acid (Folic Acid) 1 mg PO DAILY [facility] Last Admin: 07/20/17 10:24 Dose: 1 mg Potassium Chloride/Dextrose/Sod Cl (Potassium Chl 20 Meq In D5-1/2ns) 1,000 mls @ 100 mls/hr IV .Q10H [facility] Last Admin: 07/12/17 08:32 Dose: Not Given Losartan Potassium (Cozaar) 25 mg PO DAILY [facility] Last Admin: 07/20/17 10:24 Dose: 25 mg Magnesium Chloride (Slow-Mag) 128 mg PO BID [facility] Last Admin: 07/20/17 18:28 Dose: 128 mg Ondansetron HCl (Zofran Inj) 8 mg IVP Q6H PRN PRN Reason: Nausea/Vomiting Last Admin: 07/13/17 13:18 Dose: 8 mg Pantoprazole Sodium (Protonix Ec Tab) 40 mg PO DAILY [facility] Thiamine HCl (Vitamin B1 Tab) 100 mg PO DAILY [facility] Last Admin: 07/20/17 10:24 Dose: 100 mg - Labs Labs: 07/20/17 07:16 07/20/17 07:16 PT 12.3 SECONDS (9.7-12.2) H 07/17/17 06:37 INR 1.1 07/17/17 06:37 APTT 28 SECONDS (21-34) 07/11/17 20:46
[2017-07-21 07:34] LABS: BASO % 1.3 % (0.0-2.0); EOS # 0.1 K/uL (0.0-0.7); EOS % 2.5 % (0.0-4.0); HEMATOCRIT 24.5 % (35.0-51.0); LYMPH # 0.9 K/uL (1.0-4.3); LYMPH % 25.4 % (20.0-40.0); MEAN CELL VOLUME 95.6 fL (80.0-94.0); MEAN CORPUSCULAR HEMOGLOBIN 32.7 pg (27.0-31.0); MEAN CORPUSCULAR HGB CONC 34.2 g/dL (33.0-37.0); MEAN PLATELET VOLUME 9.5 fL (7.2-11.7); MONO # 0.9 K/uL (0.0-0.8); MONO % 24.1 % (0.0-10.0); NRBC % 0.2 % (0.0-2.0); PLATELET COUNT 261 K/uL (130-400); RED CELL DISTRIBUTION WIDTH 15.8 % (11.5-14.5); WHITE BLOOD COUNT 3.6 K/uL (4.8-10.8)
[2017-07-21 08:15] LABS: CHLORIDE 99 mmol/L (98-107)
[2017-07-21 08:16] LABS: POTASSIUM 4.1 mmol/L (3.6-5.2); SODIUM 131 mmol/L (132-148)
[2017-07-21 08:18] LABS: ALKALINE PHOSPHATASE 58 U/L (38-126); ALT/SGPT 36 U/L (21-72); AST/SGOT 51 U/L (17-59); BILIRUBIN,TOTAL 0.6 mg/dL (0.2-1.3); BLOOD UREA NITROGEN 14 mg/dL (9-20); CARBON DIOXIDE 24 mmol/L (22-30); GFR AFRICAN-AMERICAN > 60; GLUCOSE,RANDOM 90 mg/dL (75-110)
[2017-07-21 08:19] LABS: CALCIUM 8.8 mg/dl (8.6-10.4); MAGNESIUM 1.4 mg/dL (1.6-2.3); PHOSPHOROUS 1.3 mg/dL (2.5-4.5)
[2017-07-21 09:04] LABS: BASOPHIL 4 % (0-2); EOSINOPHIL 2 % (0-4); NEUTROPHIL 44 % (50-75); TOTAL CELLS COUNTED 50
[2017-07-21 09:05] LABS: LARGE PLATELETS PRESENT
[2017-07-21] MEDS: Magnesium Chloride 64 mg ER Tab PO SCH ×2 (09:27→18:54)
[2017-07-21] MEDS: Pantoprazole 40 mg EC Tab PO SCH (09:28)
[2017-07-21] MEDS: Ferric Sodium Gluconat Complex 62.5 mg/5 ml Vial IVPB SCH (09:28)
--- NOTE | 2017-07-21 12:15 | CARD ---
APPROVED REPORT EXAM: Two-dimensional and M-mode echocardiogram with Doppler and color Doppler. Other Information Quality : GoodRhythm : INDICATION Systolic Chest Pain Syncope Alcohol Intoxication 2D DIMENSIONS IVSd1.4 (0.7-1.1cm)LVDd5.0 (3.9-5.9cm) PWd1.4 (0.7-1.1cm)LVDs3.6 (2.5-4.0cm) FS (%) 29.3 %LVEF (%)35.0 (>50%) M-Mode DIMENSIONS Left Atrium (MM)4.52 (2.5-4.0cm)Aortic Root3.45 (2.2-3.7cm) Aortic Cusp Exc.2.31 (1.5-2.0cm) Mitral Valve MV E Uqegwbde58.4cm/sMV A Sxmoobcj72.7cm/sE/A ratio0.9 TDI E/Lateral E'0.0E/Medial E'0.0 Tricuspid Valve TR Peak Esrggrdr542cu/sTR Peak Gr.[id number] LEFT VENTRICLE The left ventricle is normal size. There is mild concentric left ventricular hypertrophy. The Ejection Fraction is 30-35%. There is global hypokinesis of the left ventricle. Transmitral Doppler flow pattern is Grade II-pseudonormal filling dynamics. RIGHT VENTRICLE The right ventricle is normal size. The right ventricular systolic function is normal. ATRIA The left atrium is moderately dilated. The right atrium size is normal. The interatrial septum is intact with no evidence for an atrial septal defect. AORTIC VALVE The aortic valve is normal in structure. No aortic regurgitation is present. MITRAL VALVE The mitral valve is normal in structure. Mitral regurgitation is mild. TRICUSPID VALVE The tricuspid valve is normal in structure. There is mild tricuspid regurgitation. Right ventricular systolic pressure is estimated at 40 mmHg. There is mild pulmonary hypertension. PULMONIC VALVE The pulmonary valve is normal in structure. There is mild pulmonic valvular regurgitation. GREAT VESSELS mildly dilated ascending aorta. The IVC is normal in size and collapses >50% with inspiration. PERICARDIAL EFFUSION There is no pericardial effusion. <Conclusion> The left ventricle is normal size. There is mild concentric left ventricular hypertrophy. The Ejection Fraction is 30-35%. There is global hypokinesis of the left ventricle. Transmitral Doppler flow pattern is Grade II-pseudonormal filling dynamics. The left atrium is moderately dilated. Mitral regurgitation is mild. There is mild tricuspid regurgitation. Right ventricular systolic pressure is estimated at 40 mmHg. There is mild pulmonary hypertension. mildly dilated ascending aorta.
--- NOTE | 2017-07-21 17:11 | CP.PCM.PN ---
Subjective - Date & Time of Evaluation Date of Evaluation: 07/21/17 Time of Evaluation: 11:00 - Subjective Subjective: PGY 2 Medicine Note- Dr. Rosen's service Pt seen and examined in no acute distress. Patient denies complaints. He states that he received a life vest a few days ago. He specifically denies chest pain, palpitations, headaches at this time. Objective - Vital Signs/Intake and Output Vital Signs (last 24 hours): Temp Pulse Resp BP Pulse Ox 98.1 F 64 20 124/78 96 07/21/17 08:05 07/21/17 08:05 07/21/17 08:05 07/21/17 08:05 07/21/17 08:05 Intake and Output: 07/21/17 07/21/17 06:59 18:59 Output Total 300 Balance -300 - Medications Medications: Current Medications Acetaminophen (Tylenol 325mg Tab) 650 mg PO Q6 PRN PRN Reason: Pain, moderate (4-7) Last Admin: 07/21/17 02:00 Dose: 650 mg Aspirin (Ecotrin) 81 mg PO DAILY [facility] Last Admin: 07/21/17 09:28 Dose: 81 mg Carvedilol (Coreg) 3.125 mg PO BID [facility] Last Admin: 07/21/17 09:28 Dose: 3.125 mg Ferric Sodium Gluconate Complex (Ferrlecit) 125 mg IVPB DAILY [facility] Stop: 07/29/17 10:01 Last Admin: 07/21/17 09:28 Dose: 125 mg Folic Acid (Folic Acid) 1 mg PO DAILY [facility] Last Admin: 07/21/17 09:28 Dose: 1 mg Potassium Chloride/Dextrose/Sod Cl (Potassium Chl 20 Meq In D5-1/2ns) 1,000 mls @ 100 mls/hr IV .Q10H [facility] Last Admin: 07/12/17 08:32 Dose: Not Given Losartan Potassium (Cozaar) 25 mg PO DAILY [facility] Last Admin: 07/21/17 09:27 Dose: 25 mg Magnesium Chloride (Slow-Mag) 128 mg PO BID [facility] Last Admin: 07/21/17 09:27 Dose: 128 mg Ondansetron HCl (Zofran Inj) 8 mg IVP Q6H PRN PRN Reason: Nausea/Vomiting Last Admin: 07/13/17 13:18 Dose: 8 mg Pantoprazole Sodium (Protonix Ec Tab) 40 mg PO DAILY [facility] Last Admin: 07/21/17 09:28 Dose: 40 mg Thiamine HCl (Vitamin B1 Tab) 100 mg PO DAILY [facility] Last Admin: 07/21/17 09:28 Dose: 100 mg - Labs Labs: 07/21/17 06:57 07/21/17 06:57 PT 12.3 SECONDS (9.7-12.2) H 07/17/17 06:37 INR 1.1 07/17/17 06:37 APTT 28 SECONDS (21-34) 07/11/17 20:46 - Constitutional Appears: Non-toxic, No Acute Distress - Head Exam Head Exam: ATRAUMATIC, NORMAL INSPECTION, NORMOCEPHALIC - Eye Exam Eye Exam: EOMI, Normal appearance, PERRL Pupil Exam: NORMAL ACCOMODATION - ENT Exam ENT Exam: Mucous Membranes Moist - GI/Abdominal Exam GI & Abdominal Exam: Soft - Extremities Exam Extremities Exam: Full ROM - Neurological Exam Neurological Exam: Alert, Awake, Oriented x3 - Psychiatric Exam Psychiatric exam: Normal Affect, Normal Mood - Skin Skin Exam: Normal Color, Warm Assessment and Plan - Assessment and Plan (Free Text) Assessment: Alcohol Withdrawal/Dependence/Abuse -continue MVs and folic acid -continue thiamine -continue D5 1/2 NS -[facility] protocol Electrolyte imbalance -Replete; continue to monitor Cardiomyopathy -Likely secondary to chronic alcohol use -Lifevest at the moment. Will need further eval for AICD eval after 3 months -EF 30-35% on most recent echo. This is a ho difference compared to the EF from October echo. -EKG wnl and ROMIx3 negative -telemetry monitoring -monitor electrolytes Anemia and pancytopenia;chronic and 2/2 to bone marrow suppression from excessive EtOH intake -s/p transfusion of 2 units -in setting of chronic EtOH use the patient will need to stop drinking -slight microscopic hematuria on UA; will repeat -recommending outpatient cytology for f/u; patient was a smoker -holding DVT Proph 2/2 to thrombocytopenia Pancreatitis; acute and resolving -continue fluids 07/17: patient had [employer]RIC [employer]GEON on 07/16 2/2 to pancreatitis; had demand ischemia 2/2 to vasovagal episode and went for cath today that ruled out ischemic involvement as per Dr. Dillard. Please refer to full report. -please avoid narcotics -watch for decreasing BUN in setting of pancreatitis HepC; chronic untreated Patient will need outpatient GI for Hep C Treatment Counseling on alcohol intake. Alcohol abuse Counseling warranted in light or worsening cardiac function Prophylactic measure hold DVT proph in setting of earlier pancytopenia/thrombocytopenia; c/w SCD -Aspirin daily -Pepcid PO daily -CIWA/patient wants to go to rehab PT/OT on board- Follow up reccs Patient needs authorization for acceptance to [facility] All management as per Dr. Rosen
--- NOTE | 2017-07-21 23:38 | CP.PCM.PN ---
Subjective - Date & Time of Evaluation Date of Evaluation: 07/21/17 Time of Evaluation: 11:15 - Subjective Subjective: Patient seen and evaluated Denies chest pain and dyspnea On LifeVest now Objective - Vital Signs/Intake and Output Vital Signs (last 24 hours): Temp Pulse Resp BP Pulse Ox 98.1 F 67 20 108/74 97 07/21/17 15:08 07/21/17 20:36 07/21/17 15:08 07/21/17 18:07 07/21/17 15:08 Intake and Output: 07/21/17 07/22/17 18:59 06:59 Intake Total 100 700 Balance 100 700 - Medications Medications: Current Medications Acetaminophen (Tylenol 325mg Tab) 650 mg PO Q6 PRN PRN Reason: Pain, moderate (4-7) Last Admin: 07/21/17 02:00 Dose: 650 mg Aspirin (Ecotrin) 81 mg PO DAILY [facility] Last Admin: 07/21/17 09:28 Dose: 81 mg Carvedilol (Coreg) 3.125 mg PO BID [facility] Last Admin: 07/21/17 18:10 Dose: 3.125 mg Ferric Sodium Gluconate Complex (Ferrlecit) 125 mg IVPB DAILY [facility] Stop: 07/29/17 10:01 Last Admin: 07/21/17 09:28 Dose: 125 mg Folic Acid (Folic Acid) 1 mg PO DAILY [facility] Last Admin: 07/21/17 09:28 Dose: 1 mg Potassium Chloride/Dextrose/Sod Cl (Potassium Chl 20 Meq In D5-1/2ns) 1,000 mls @ 100 mls/hr IV .Q10H [facility] Last Admin: 07/12/17 08:32 Dose: Not Given Losartan Potassium (Cozaar) 25 mg PO DAILY [facility] Last Admin: 07/21/17 09:27 Dose: 25 mg Magnesium Chloride (Slow-Mag) 128 mg PO BID [facility] Last Admin: 07/21/17 18:54 Dose: 128 mg Ondansetron HCl (Zofran Inj) 8 mg IVP Q6H PRN PRN Reason: Nausea/Vomiting Last Admin: 07/13/17 13:18 Dose: 8 mg Pantoprazole Sodium (Protonix Ec Tab) 40 mg PO DAILY [facility] Last Admin: 07/21/17 09:28 Dose: 40 mg Thiamine HCl (Vitamin B1 Tab) 100 mg PO DAILY [facility] Last Admin: 07/21/17 09:28 Dose: 100 mg - Labs Labs: 07/21/17 06:57 07/21/17 06:57 PT 12.3 SECONDS (9.7-12.2) H 07/17/17 06:37 INR 1.1 07/17/17 06:37 APTT 28 SECONDS (21-34) 07/11/17 20:46
[2017-07-22 05:30] VITALS: RESP 20
[2017-07-22 08:14] VITALS: BP 136/82; TEMP 98.4; O2SAT 99
[2017-07-22 08:35] LABS: HEMATOCRIT 24.7 % (35.0-51.0); MEAN CELL VOLUME 95.8 fL (80.0-94.0); MEAN CORPUSCULAR HEMOGLOBIN 33.4 pg (27.0-31.0); MEAN CORPUSCULAR HGB CONC 34.9 g/dL (33.0-37.0); MEAN PLATELET VOLUME 9.1 fL (7.2-11.7); RED CELL DISTRIBUTION WIDTH 15.7 % (11.5-14.5); WHITE BLOOD COUNT 3.6 K/uL (4.8-10.8)
[2017-07-22 09:01] LABS: CHLORIDE 98 mmol/L (98-107); SODIUM 131 mmol/L (132-148)
[2017-07-22 09:02] LABS: POTASSIUM 4.2 mmol/L (3.6-5.2)
[2017-07-22 09:04] LABS: ALKALINE PHOSPHATASE 54 U/L (38-126); ALT/SGPT 35 U/L (21-72); AST/SGOT 43 U/L (17-59); BILIRUBIN,TOTAL 0.6 mg/dL (0.2-1.3); BLOOD UREA NITROGEN 18 mg/dL (9-20); CARBON DIOXIDE 24 mmol/L (22-30); GFR AFRICAN-AMERICAN > 60; GLUCOSE,RANDOM 82 mg/dL (75-110); PHOSPHOROUS 1.7 mg/dL (2.5-4.5); TOTAL PROTEIN 7.7 g/dL (6.3-8.3)
[2017-07-22 09:05] LABS: CALCIUM 9.5 mg/dl (8.6-10.4); MAGNESIUM 1.3 mg/dL (1.6-2.3)
[2017-07-22] MEDS: Ferric Sodium Gluconat Complex 62.5 mg/5 ml Vial IVPB SCH (09:15)
[2017-07-22 09:28] VITALS: PULSE 68
[2017-07-22] MEDS ORDERED: Magnesium Sulfate 1 gm in D5W 1 GM/100 ML BAG IVPB ONE (10:45)
[2017-07-22] MEDS: Pantoprazole 40 mg EC Tab PO SCH (11:00)
[2017-07-22] MEDS: Magnesium Chloride 64 mg ER Tab PO SCH (11:07)
[2017-07-22] MEDS ORDERED: Sodium Phosphate 15 MMOLE in Sodium Chloride 0.9% 250 ML IVPB ONE (11:30)
--- NOTE | 2017-07-22 11:34 | CP.PCM.PN ---
<Rosita Weldon DO - Last Filed: 07/22/17 17:58> Subjective - Date & Time of Evaluation Date of Evaluation: 07/22/17 Time of Evaluation: 10:00 - Subjective Subjective: Cardiology progress note for Dr. Dillard Patient seen and examined. Patient states he feels well and that he has no chest pain or dyspnea. Patient admits to feeling light-headed with ambulation to bathroom. Patient comfortable wearing LifeVest. Objective - Vital Signs/Intake and Output Vital Signs (last 24 hours): Temp Pulse Resp BP Pulse Ox 98.4 F 68 20 136/82 99 07/22/17 07:20 07/22/17 08:00 07/22/17 07:20 07/22/17 07:20 07/22/17 07:20 Intake and Output: 07/22/17 07/22/17 06:59 18:59 Intake Total 900 Output Total 600 Balance 300 - Medications Medications: Current Medications Acetaminophen (Tylenol 325mg Tab) 650 mg PO Q6 PRN PRN Reason: Pain, moderate (4-7) Last Admin: 07/21/17 02:00 Dose: 650 mg Aspirin (Ecotrin) 81 mg PO DAILY [facility] Last Admin: 07/22/17 11:00 Dose: 81 mg Carvedilol (Coreg) 3.125 mg PO BID [facility] Last Admin: 07/22/17 11:00 Dose: 3.125 mg Ferric Sodium Gluconate Complex (Ferrlecit) 125 mg IVPB DAILY [facility] Stop: 07/29/17 10:01 Last Admin: 07/22/17 09:15 Dose: 125 mg Folic Acid (Folic Acid) 1 mg PO DAILY [facility] Last Admin: 07/22/17 11:00 Dose: 1 mg Potassium Chloride/Dextrose/Sod Cl (Potassium Chl 20 Meq In D5-1/2ns) 1,000 mls @ 100 mls/hr IV .Q10H [facility] Last Admin: 07/12/17 08:32 Dose: Not Given Sodium Phosphate 15 mmole/ (Sodium Chloride) 255 mls @ 50 mls/hr IVPB .Q5H6M ONE Stop: 07/22/17 16:35 Losartan Potassium (Cozaar) 25 mg PO DAILY [facility] Last Admin: 07/22/17 11:00 Dose: 25 mg Magnesium Chloride (Slow-Mag) 128 mg PO BID [facility] Last Admin: 07/22/17 11:07 Dose: 128 mg Ondansetron HCl (Zofran Inj) 8 mg IVP Q6H PRN PRN Reason: Nausea/Vomiting Last Admin: 07/13/17 13:18 Dose: 8 mg Pantoprazole Sodium (Protonix Ec Tab) 40 mg PO DAILY [facility] Last Admin: 07/22/17 11:00 Dose: 40 mg Thiamine HCl (Vitamin B1 Tab) 100 mg PO DAILY [facility] Last Admin: 07/22/17 11:08 Dose: 100 mg - Labs Labs: 07/22/17 08:22 07/22/17 08:22 PT 12.3 SECONDS (9.7-12.2) H 07/17/17 06:37 INR 1.1 07/17/17 06:37 APTT 28 SECONDS (21-34) 07/11/17 20:46 - Constitutional Appears: Non-toxic, No Acute Distress - Head Exam Head Exam: ATRAUMATIC, NORMOCEPHALIC - Eye Exam Eye Exam: EOMI - ENT Exam ENT Exam: Mucous Membranes Moist - Respiratory Exam Respiratory Exam: Clear to Ausculation Bilateral, NORMAL BREATHING PATTERN - Cardiovascular Exam Cardiovascular Exam: +S1, +S2 - GI/Abdominal Exam GI & Abdominal Exam: Soft, Normal Bowel Sounds. absent: Tenderness - Extremities Exam Extremities Exam: Normal Inspection. absent: Calf Tenderness, Pedal Edema - Neurological Exam Neurological Exam: Alert, Awake - Psychiatric Exam Psychiatric exam: Normal Affect - Skin Skin Exam: Warm Assessment and Plan - Assessment and Plan (Free Text) Assessment: 61 year old male with history of chronic alcohol abuse, admitted following syncopal episode with chest pain Cardiomyopathy alcoholic cardiomyopathy Patient wearing LifeVest, will need to follow up with Dr. Dillard as outpatient within next 1-2 weeks and again for eval for AICD in 3 months -EF 30-35% on most recent echo- will re-evaluate in 3 months -patent coronaries on cath -EKG wnl and ROMIx3 negative Plan as per Dr. Dillard <Louis Dillard - Last Filed: 07/22/17 23:52> Objective - Vital Signs/Intake and Output Vital Signs (last 24 hours): Temp Pulse Resp BP Pulse Ox 98.4 F 68 20 136/82 99 07/22/17 07:20 07/22/17 08:00 07/22/17 07:20 07/22/17 07:20 07/22/17 07:20 - Labs Labs: 07/22/17 08:22 07/22/17 08:22 PT 12.3 SECONDS (9.7-12.2) H 07/17/17 06:37 INR 1.1 07/17/17 06:37 APTT 28 SECONDS (21-34) 07/11/17 20:46 Assessment and Plan - Assessment and Plan (Free Text) Assessment: Patient seen and evaluated with the bacteriologist medical Plan of care as documented
--- NOTE | 2017-07-22 14:47 | CP.PCM.PN ---
Subjective - Date & Time of Evaluation Date of Evaluation: 07/22/17 Time of Evaluation: 09:11 - Subjective Subjective: PGY 2 Medicine Note- Dr. Rosen's service Pt seen and examined in no acute distress. Patient states that he had a fall in the bathroom a few days earlier but did not tell anyone until today. Per Physical therapist, patient has had improved gait with therapy. He denies paresthesias, chest pain, palpitations, headaches at this time. Objective - Vital Signs/Intake and Output Vital Signs (last 24 hours): Temp Pulse Resp BP Pulse Ox 98.4 F 68 20 136/82 99 07/22/17 07:20 07/22/17 08:00 07/22/17 07:20 07/22/17 07:20 07/22/17 07:20 Intake and Output: 07/22/17 07/22/17 06:59 18:59 Intake Total 900 Output Total 600 Balance 300 - Medications Medications: Current Medications Acetaminophen (Tylenol 325mg Tab) 650 mg PO Q6 PRN PRN Reason: Pain, moderate (4-7) Last Admin: 07/21/17 02:00 Dose: 650 mg Aspirin (Ecotrin) 81 mg PO DAILY [facility] Last Admin: 07/22/17 11:00 Dose: 81 mg Carvedilol (Coreg) 3.125 mg PO BID [facility] Last Admin: 07/22/17 11:00 Dose: 3.125 mg Ferric Sodium Gluconate Complex (Ferrlecit) 125 mg IVPB DAILY [facility] Stop: 07/29/17 10:01 Last Admin: 07/22/17 09:15 Dose: 125 mg Folic Acid (Folic Acid) 1 mg PO DAILY [facility] Last Admin: 07/22/17 11:00 Dose: 1 mg Potassium Chloride/Dextrose/Sod Cl (Potassium Chl 20 Meq In D5-1/2ns) 1,000 mls @ 100 mls/hr IV .Q10H [facility] Last Admin: 07/12/17 08:32 Dose: Not Given Sodium Phosphate 15 mmole/ (Sodium Chloride) 255 mls @ 50 mls/hr IVPB .Q5H6M ONE Stop: 07/22/17 16:35 Last Admin: 07/22/17 12:00 Dose: 50 mls/hr Losartan Potassium (Cozaar) 25 mg PO DAILY [facility] Last Admin: 07/22/17 11:00 Dose: 25 mg Magnesium Chloride (Slow-Mag) 128 mg PO BID [facility] Last Admin: 07/22/17 11:07 Dose: 128 mg Ondansetron HCl (Zofran Inj) 8 mg IVP Q6H PRN PRN Reason: Nausea/Vomiting Last Admin: 07/13/17 13:18 Dose: 8 mg Pantoprazole Sodium (Protonix Ec Tab) 40 mg PO DAILY [facility] Last Admin: 07/22/17 11:00 Dose: 40 mg Thiamine HCl (Vitamin B1 Tab) 100 mg PO DAILY [facility] Last Admin: 07/22/17 11:08 Dose: 100 mg - Labs Labs: 07/22/17 08:22 07/22/17 08:22 PT 12.3 SECONDS (9.7-12.2) H 07/17/17 06:37 INR 1.1 07/17/17 06:37 APTT 28 SECONDS (21-34) 07/11/17 20:46 - Constitutional Appears: Non-toxic, No Acute Distress - Head Exam Head Exam: ATRAUMATIC, NORMAL INSPECTION - Eye Exam Eye Exam: EOMI - Neck Exam Neck Exam: Full ROM - Respiratory Exam Respiratory Exam: NORMAL BREATHING PATTERN. absent: Wheezes - Cardiovascular Exam Cardiovascular Exam: +S1, +S2 - GI/Abdominal Exam GI & Abdominal Exam: Soft - Extremities Exam Extremities Exam: Full ROM, Normal Capillary Refill - Back Exam Back Exam: Full ROM - Neurological Exam Neurological Exam: Alert, Awake, Oriented x3 - Psychiatric Exam Psychiatric exam: Normal Affect, Normal Mood - Skin Skin Exam: Dry, Normal Color, Warm Assessment and Plan - Assessment and Plan (Free Text) Assessment: Chronic Alcohol Abuse -continue MVs and folic acid -continue thiamine -continue D5 1/2 NS -CIWA protocol Electrolyte imbalance -Phos and Mag were low likely secondary to chronic alcohol use -Replete; continue to monitor Cardiomyopathy -Likely secondary to chronic alcohol use -[facility] at the moment. Will need further eval for AICD eval after 3 months -EF 30-35% on most recent echo. This is a ho difference compared to the EF from October echo. 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 Dillard. Please refer to full report. -please avoid narcotics -watch for decreasing BUN in setting of pancreatitis HepC; chronic untreated Patient will need outpatient GI for Hep C Treatment Counseling on alcohol intake. Alcohol abuse Counseling warranted in light or worsening cardiac function Prophylactic measure hold DVT proph in setting of earlier pancytopenia/thrombocytopenia; c/w SCD -Aspirin daily -Pepcid PO daily -CIWA/patient wants to go to rehab PT/OT on board- Follow up reccs Patient to be discharged with home physical therapy services. Discharge instructions: Patient is medically optimized for discharge home Patient should follow up with his primary medical doctor within one week of discharge . Patient should follow up with Dr. Louis Dillard (Tavern Keeper) within one week of discharge. It is important that patient is compliant with [facility] therapy and continued cardiac appointments. Patient to take Aspirin daily; Carvedilol, one tablet two times a day; Losartan one tablet daily, folic acid and thiamine daily. Patient has been counseled extensively on discontinuing alcohol use. If symptoms return, go to the emergency room. Instructions explained to family members present who are aware. All management as per Dr. Rosen
--- NOTE | 2017-07-31 02:45 | DS ---
HISTORY OF PRESENT ILLNESS: Mr. Sampson was admitted to hospital with chief complaint of syncope, weakness, fatigue, chest pain. The patient was found to have DTs. Treated with IV fluid, Ativan. The patient showed improvement, physical therapy, discharged to follow up as an outpatient. Famiila Rosen MD
== END 2017-07-22 16:55 | disposition home or self-care (01) | DRG 750 ==
LOC: C.ER 19:51 → SUPCPDRO 19:51 → C.9E 23:02 → C.6T 23:42 → OBSVTOIN 07-13 09:00 → C.5S 07-15 06:17 → C.6T 07-15 12:59
PROVIDERS: ADMIT Internal Medicine Pulmonary Disease; ATTEND Internal Medicine Pulmonary Disease
PROC: HZ2ZZZZ Detoxification Services for Substance Abuse Treatment (ICD-10-PCS; 2017-07-13)
PROC: 4A023N7 Measurement of Cardiac Sampling and Pressure, Left Heart, Percutaneous Approach (ICD-10-PCS; principal; 2017-07-17)
PROC: B2111ZZ Fluoroscopy of Multiple Coronary Arteries using Low Osmolar Contrast (ICD-10-PCS; 2017-07-17)
PROC: B2151ZZ Fluoroscopy of Left Heart using Low Osmolar Contrast (ICD-10-PCS; 2017-07-17)
DX: F10.231 Alcohol dependence with withdrawal delirium (principal); I50.21 Acute systolic (congestive) heart failure; D61.818 Other pancytopenia; I42.0 Dilated cardiomyopathy; I24.8 Other forms of acute ischemic heart disease; I42.6 Alcoholic cardiomyopathy; E83.42 Hypomagnesemia; K85.90 Acute pancreatitis without necrosis or infection, unspecified; B19.20 Unspecified viral hepatitis C without hepatic coma; I11.0 Hypertensive heart disease with heart failure; F10.288 Alcohol dependence with other alcohol-induced disorder; R55 Syncope and collapse; Y90.8 Blood alcohol level of 240 mg/100 ml or more; Z79.82 Long term (current) use of aspirin; Z87.11 Personal history of peptic ulcer disease; Z87.891 Personal history of nicotine dependence

== ENCOUNTER 2017-09-22 12:27 | Emergency (ER) | payer MEDICAID, OTHER ==
[2017-09-22 12:27] VITALS: BMI 24.8
[2017-09-22 12:40] VITALS: PULSE 73; TEMP 97.4
[2017-09-22 14:19] LABS: BASO # 0.1 K/uL (0.0-0.2); BASO % 1.2 % (0.0-2.0); EOS % 0.2 % (0.0-4.0); HEMATOCRIT 33.6 % (35.0-51.0); LYMPH # 0.7 K/uL (1.0-4.3); LYMPH % 12.6 % (20.0-40.0); MEAN CELL VOLUME 98.8 fL (80.0-94.0); MEAN CORPUSCULAR HEMOGLOBIN 32.9 pg (27.0-31.0); MEAN CORPUSCULAR HGB CONC 33.3 g/dL (33.0-37.0); MEAN PLATELET VOLUME 8.8 fL (7.2-11.7); MONO # 0.4 K/uL (0.0-0.8); RED CELL DISTRIBUTION WIDTH 15.5 % (11.5-14.5); WHITE BLOOD COUNT 5.8 K/uL (4.8-10.8)
--- NOTE | 2017-09-22 14:42 | CT ---
PROCEDURE: CT HEAD WITHOUT CONTRAST. HISTORY: intox, fall, neuro negative COMPARISON: Noncontrast head CT performed 07/12/17 TECHNIQUE: Axial computed tomography images were obtained through the head/brain without intravenous contrast. Radiation dose: Total exam DLP = 898.38 mGy-cm. This CT exam was performed using one or more of the following dose reduction techniques: Automated exposure control, adjustment of the mA and/or kV according to patient size, and/or use of iterative reconstruction technique. FINDINGS: HEMORRHAGE: No intracranial hemorrhage. BRAIN: Diffuse atrophy with prominence of the ventricles and sulci noted. No mass effect or edema. The saucedo-white matter differentiation appears intact.Please note that MRI with diffusion imaging is more sensitive in the detection of acute ischemic event. VENTRICLES: No hydrocephalus. CALVARIUM: Unremarkable. PARANASAL SINUSES: Unremarkable as visualized. No significant inflammatory changes. MASTOID AIR CELLS: Unremarkable as visualized. No inflammatory changes. OTHER FINDINGS: Chronic fractures involving the left zygomatic arch and lateral wall of the left orbit. Right posterior scalp hematoma. IMPRESSION: Right posterior scalp hematoma. No acute intracranial pathology identified. Additional findings as above.
--- NOTE | 2017-09-22 14:54 | C.PDOC ---
History Of Present Illness 62 y/o intoxicated male bought by ambulance to the ER for falling and passing out. Patient reports that he has left lateral chest pain. Patient reports that he was drinking ETOH excessively today because his son's birthday is today.Patient reports that he has been previously evaluated for ETOH intoxication. Time Seen by Provider: 09/22/17 13:46 Chief Complaint (Nursing): Syncope History Per: Patient History/Exam Limitations: no limitations Onset/Duration Of Symptoms: Hrs Current Symptoms Are (Timing): Still Present Past Medical History Reviewed: Historical Data, Nursing Documentation, Vital Signs Vital Signs: Last Vital Signs Temp 97.4 F L 09/22/17 12:36 Pulse 73 09/22/17 17:20 Resp 18 09/22/17 17:20 BP 160/86 H 09/22/17 17:20 Pulse Ox 97 09/22/17 17:20 - Medical History PMH: Anemia, Anxiety, Arthritis, CHF, Depression, Gastritis, Gastrointestinal Ulcer (PEPTIC), HTN, Pancreatitis, Peripheral Edema Denies: HIV, Kidney Stones, Chronic Kidney Disease, Seizures, Sexually Transmitted Disease Surgical History: No Surg Hx - [facility] Procedures ALCOHOL DETOXIFICATION (05/03/13) DETOXIFICATION SERVICES FOR SUBSTANCE ABUSE TREATMENT (07/13/17) EXCISION OF DESCENDING COLON, ENDO, DIAGN (03/14/16) EXCISION OF STOMACH, ENDO, DIAGN (11/26/16) EXTIRPATION OF MATTER FROM LARGE INTESTINE, ENDO (01/09/17) FLUOROSCOPY OF LEFT HEART USING LOW OSMOLAR CONTRAST (07/13/17) FLUOROSCOPY OF MULT COR ART USING L OSM CONTRAST (07/13/17) GROUP PSYCHOTHERAPY (01/24/16) INSERT OF MONITOR DEV INTO CHEST SUBCU/FASCIA, OPEN APPROACH (12/18/16) MEASURE OF ARTERIAL PRESSURE, PERIPHERAL, LAND CONSERVATION SPECIALIST APPROACH (12/18/16) MEASURE OF CARDIAC SAMPL & PRESSURE, L HEART, PERC APPROACH (07/13/17) MEASUREMENT OF CARDIAC RHYTHM, EXTERNAL APPROACH (12/18/16) TRANSFUSE NONAUT RED BLOOD CELLS IN PERIPH ART, PERC (01/09/17) TRANSFUSE NONAUT RED BLOOD CELLS IN PERIPH VEIN, PERC (07/28/16) Family History: States: No Known Family Hx - Social History Hx Tobacco Use: No (quit 2 months now) Hx Alcohol Use: Yes Hx Substance Use: No - Immunization History Hx Tetanus Toxoid Vaccination: No Hx Influenza Vaccination: No Hx Pneumococcal Vaccination: No Review Of Systems Except As Marked, All Systems Reviewed And Found Negative. Constitutional: Negative for: Fever, Chills Cardiovascular: Positive for: Chest Pain (left lateral chest pain) Neurological: Negative for: Weakness, Numbness Physical Exam - Physical Exam Appears: No Acute Distress, Other (intoxicated) Skin: Normal Color, Warm, No Rash, Other (no contusions) Head: Atraumatic, Normacephalic Eye(s): bilateral: Normal Inspection Nose: Normal Oral Mucosa: Moist Tongue: Other (ETOH on breath) Neck: Supple Chest: Tenderness (mild tenderness in the left lateral chest) Cardiovascular: Rhythm Regular Respiratory: Normal Breath Sounds, No Accessory Muscle Use Extremity: Normal ROM Neurological/Psych: Oriented x3, Normal Speech, Normal Cognition Gait: With Assistance (walks with a cane because left leg is weak) ED Course And Treatment - Laboratory Results Result Diagrams: 09/22/17 14:09 09/22/17 14:09 Lab Interpretation: Abnormal (etoh 319 H) ECG: Interpreted By Me ECG Rhythm: Sinus Rhythm ECG Interpretation: Normal Rate From EC O2 Sat by Pulse Oximetry: 95 (RA) Pulse Ox Interpretation: Normal - CT Scan/US head CT and Chest CT Other Rad Studies (CT/US): Radiology Report Reviewed (no acute findings.) Progress Note: metabolized to sobriety, motrin for L chest wall discomfort. Medical Decision Making Medical Decision Making: Impression: Left Lateral Chest Pain Plan: --Labs --Urinalysis --CXR --X-Ray Chest W/O Contrast --ECG intox and fall with L chest wall discomfort, normal chest CT/Head CT etoh 319 pt now clinically sober and wants d/c now. Stable/baseline gait. Disposition Doctor Will See Patient In The: Office Counseled Patient/Family Regarding: Studies Performed, Diagnosis - Disposition Disposition: HOME/ ROUTINE Disposition Time: 17:47 Condition: GOOD Forms: [facility] ([place]) - Clinical Impression Clinical Impression: Alcohol abuse, Chest wall contusion - Scribe Statement The provider has reviewed the documentation as recorded by the Ava Andersen Provider Attestation: All medical record entries made by the Scribe were at my direction and personally dictated by me. I have reviewed the chart and agree that the record accurately reflects my personal performance of the history, physical exam, medical decision making, and the department course for this patient. I have also personally directed, reviewed, and agree with the discharge instructions and disposition.
[2017-09-22 14:57] LABS: BILIRUBIN,TOTAL 0.7 mg/dL (0.2-1.3); CALCIUM 7.8 mg/dl (8.6-10.4); GFR AFRICAN-AMERICAN > 60; GLUCOSE,RANDOM 64 mg/dL (75-110); TOTAL PROTEIN 8.5 g/dL (6.3-8.3)
[2017-09-22 15:13] LABS: ALKALINE PHOSPHATASE 77 U/L (38-126); ALT/SGPT 35 U/L (21-72)
--- NOTE | 2017-09-22 15:13 | CT ---
PROCEDURE: CT Chest without contrast HISTORY: intox fall L ribs, ? Fx COMPARISON: None. TECHNIQUE: Contiguous axial images were obtained through the chest without intravenous contrast enhancement. Sagittal and coronal reconstructions were performed. Radiation dose (DLP): 335.25 mGy-cm. This CT exam was performed using one or more of the following dose reduction techniques: Automated exposure control, adjustment of the mA and/or kV according to patient size, and/or use of iterative reconstruction technique. FINDINGS: LUNGS: Trace emphysematous changes seen at the right lower lobe. No dominant pulmonary mass is appreciated including central airways. No infiltrates or pneumothorax bilaterally. MEDIASTINUM: Unremarkable thoracic aorta. No aneurysm. Normal sized heart. Main pulmonary artery unremarkable. No vascular congestion. No significant lymphadenopathy. PLEURA: No pleural fluid. No pneumothorax. BONES: No fracture. No destructive lesion. UPPER ABDOMEN: Diffuse fatty infiltration of the liver is appreciated. OTHER FINDINGS: None. IMPRESSION: Limited emphysematous changes are seen at the right lower lobe however no infiltrate, mass or significant lymphadenopathy is identified throughout the chest. No fracture or destructive bony lesion appreciated throughout the bony thorax. No pneumothorax. No pleural or pericardial effusion. Incidental diffuse fatty infiltration liver is encountered.
--- NOTE | 2017-09-22 15:17 | RAD ---
PROCEDURE: CHEST RADIOGRAPH, 1 VIEW HISTORY: SOB COMPARISON: None available. FINDINGS: LUNGS: Clear. PLEURA: No pneumothorax or pleural fluid seen. CARDIOVASCULAR: There is a small cardiac monitoring electrode suggested. Heart size probably top-normal. Minimal left ventricular enlargement possible. Aortic knob calcification as before. No interval change in the thoracic aortic caliber/ configuration. OSSEOUS STRUCTURES: No significant abnormalities. VISUALIZED UPPER ABDOMEN: Normal. OTHER FINDINGS: None. IMPRESSION: No active disease.
[2017-09-22 15:20] LABS: ALB/GLOB RATIO 1.2 (1.0-2.1); AST/SGOT 172 U/L (17-59); BLOOD UREA NITROGEN 18 mg/dL (9-20); CARBON DIOXIDE 23 mmol/L (22-30); CHLORIDE 98 mmol/L (98-107); POTASSIUM 5.2 mmol/L (3.6-5.2); SODIUM 140 mmol/L (132-148)
[2017-09-22 16:01] LABS: ALCOHOL SERUM 319 mg/dl (0-10)
[2017-09-22 17:23] VITALS: BP 160/86; RESP 18
[2017-09-22 17:34] LABS: RBC URINE 10 /hpf (0-3); TRANSITIONAL EPITHIAL < 1 /hpf (0-3); URINE BACTERIA RARE (<OCC); URINE BILIRUBIN NEGATIVE (NEGATIVE); URINE BLOOD 1+ (NEGATIVE); URINE COLOR Yellow (YELLOW); URINE GLUCOSE (UA) NORMAL (Normal); URINE KETONE 1+ mg/dL (NEGATIVE); URINE LEUKOCYTE ESTERASE NEG Leu/uL (Negative); URINE PROTEIN 1+ mg/dL (NEGATIVE); URINE UROBILINOGEN NORMAL mg/dL (0.2-1.0); WBC URINE 4 /hpf (0-5)
[2017-09-22 17:47] VITALS: O2SAT 95
--- NOTE | 2017-09-24 12:42 | CARD ---
APPROVED REPORT EKG Measurement Heart [id number] <Conclusion> Sinus rhythm with 1st degree AV block Nonspecific T wave abnormality Prolonged QT Abnormal ECG
== END 2017-09-22 18:02 | disposition home or self-care (01) ==
LOC: C.ER 12:27
DX: F10.10 Alcohol abuse, uncomplicated (principal); S20.212A Contusion of left front wall of thorax, initial encounter; W19.XXXA Unspecified fall, initial encounter; I50.9 Heart failure, unspecified; I10 Essential (primary) hypertension
CPT/HCPCS: 70450; 71010; 71250; 80053; 81001; 84484; 85025; 93005; 99285; G0480

== ENCOUNTER 2018-02-12 11:07 | Inpatient (IN) | payer MEDICAID, OTHER ==
[2018-02-12 11:07] VITALS: BMI 24.8
[2018-02-12] MEDS ORDERED: Sodium Chloride 0.9% 1,000 ML IV STA (12:20)
[2018-02-12] MEDS ORDERED: Morphine 4 MG/ML VIAL ONE ×3 (12:39→19:00)
--- NOTE | 2018-02-12 12:48 | RAD ---
PROCEDURE: Radiographs of the chest and abdomen (obstructive series) HISTORY: abd pain COMPARISON: No prior. TECHNIQUE: AP radiograph of the chest, with upright and supine radiographs of the abdomen. FINDINGS: CHEST: Lungs: Clear. Cardiovascular: Normal size heart. No pulmonary vascular congestion. Pleura: No pleural fluid. No pneumothorax. Other findings: None. ABDOMEN AND PELVIS: Bowel: Unremarkable bowel gas pattern. No evidence of mechanical obstruction. Free air: None. Bones: No lytic or blastic osseous lesion. No acute fracture. Degenerative disc disease L3-4 and L4-5. Other findings: None. IMPRESSION: Normal bowel gas pattern. No pulmonary infiltrate.
--- NOTE | 2018-02-12 12:56 | C.PDOC ---
History Of Present Illness 62 year old male presents to the ED c/o epigastric pain associated with nausea and vomiting for the past 3 days. Patient states he is unable to keep anything down. As per Patient he used to be Dr. Rosen's patient he left [place] for a while and now that he is back he states he does not want Dr. Rosen as his PMD anymore. Patient denies diarrhea, fever, chills, back pain, dysuria, hematuria. Time Seen by Provider: 02/12/18 11:29 Chief Complaint (Nursing): Abdominal Pain History Per: Patient History/Exam Limitations: no limitations Onset/Duration Of Symptoms: Days (3) Current Symptoms Are (Timing): Still Present Location Of Pain/Discomfort: Epigastric Radiation Of Pain To:: None Quality Of Discomfort: "Pain" Associated Symptoms: Nausea, Vomiting, Loss Of Appetite. denies: Diarrhea Exacerbating Factors: None Alleviating Factors: None Recent travel outside of the [place]: No Additional History Per: Patient Past Medical History Reviewed: Historical Data, Nursing Documentation, Vital Signs Vital Signs: Last Vital Signs Temp 98.4 F 02/12/18 11:12 Pulse 86 02/12/18 11:12 Resp 16 02/12/18 11:12 BP 106/64 02/12/18 11:12 Pulse Ox 98 02/12/18 16:28 - Medical History PMH: Anemia, Anxiety, Arthritis, CHF, Depression, Gastritis, Gastrointestinal Ulcer (PEPTIC), HTN, Pancreatitis, Peripheral Edema Denies: HIV, Kidney Stones, Chronic Kidney Disease, Seizures, Sexually Transmitted Disease Surgical History: No Surg Hx - [facility] Procedures ALCOHOL DETOXIFICATION (05/03/13) DETOXIFICATION SERVICES FOR SUBSTANCE ABUSE TREATMENT (07/13/17) EXCISION OF DESCENDING COLON, ENDO, DIAGN (03/14/16) EXCISION OF STOMACH, ENDO, DIAGN (11/26/16) EXTIRPATION OF MATTER FROM LARGE INTESTINE, ENDO (01/09/17) FLUOROSCOPY OF LEFT HEART USING LOW OSMOLAR CONTRAST (07/13/17) FLUOROSCOPY OF MULT COR ART USING L OSM CONTRAST (07/13/17) GROUP PSYCHOTHERAPY (01/24/16) INSERT OF MONITOR DEV INTO CHEST SUBCU/FASCIA, OPEN APPROACH (12/18/16) MEASURE OF ARTERIAL PRESSURE, PERIPHERAL, DESIGN/ANIMATION INSTRUCTOR APPROACH (12/18/16) MEASURE OF CARDIAC SAMPL & PRESSURE, L HEART, PERC APPROACH (07/13/17) MEASUREMENT OF CARDIAC RHYTHM, EXTERNAL APPROACH (12/18/16) TRANSFUSE NONAUT RED BLOOD CELLS IN PERIPH ART, PERC (01/09/17) TRANSFUSE NONAUT RED BLOOD CELLS IN PERIPH VEIN, PERC (07/28/16) Family History: States: Unknown Family Hx - Social History Hx Tobacco Use: No (quit 2 months now) Hx Alcohol Use: Yes Hx Substance Use: No - Immunization History Hx Tetanus Toxoid Vaccination: No Hx Influenza Vaccination: No Hx Pneumococcal Vaccination: No Review Of Systems Constitutional: Negative for: Fever, Chills Cardiovascular: Negative for: Chest Pain Respiratory: Negative for: Shortness of Breath Gastrointestinal: Positive for: Nausea, Vomiting, Abdominal Pain. Negative for : Diarrhea Genitourinary: Negative for: Dysuria, Hematuria Musculoskeletal: Negative for: Back Pain Skin: Negative for: Rash Physical Exam - Physical Exam Appears: Non-toxic, In Acute Distress, Other (Uncomfortable ) Skin: Normal Color, Warm, Dry Head: Atraumatic, Normacephalic Eye(s): bilateral: Normal Inspection Nose: No Discharge Oral Mucosa: Moist Neck: Normal ROM, Supple Chest: Symmetrical Cardiovascular: Rhythm Regular, No Murmur Respiratory: Normal Breath Sounds, No Rales, No Rhonchi, No Wheezing Gastrointestinal/Abdominal: No Soft (Firm), Tenderness (RUQ), No Guarding, No Rebound Extremity: Normal ROM, No Tenderness, No Swelling Neurological/Psych: Oriented x3, Normal Speech Gait: Steady ED Course And Treatment - Laboratory Results Result Diagrams: 02/12/18 13:10 02/12/18 13:10 O2 Sat by Pulse Oximetry: 98 (ON RA) Pulse Ox Interpretation: Normal - Other Rad Obstructive series X-Ray X-Ray: Read By Radiologist Interpretation: Accession No. : [id number]. Patient Name / ID : ESTHELA CRESPO / [id number]. Exam Date : 02/12/2018 12:25:57 ( Approved ). Study Comment : Sex / Age : M / 62Y. Creator : Baldemar Meek MD. Dictator : Baldemar Meek MD. Auto Clutch Specialist : Dye Blender : Baldemar Meek MD. Approver2 : Report Date : 02/12/2018 12:46:27. My Comment : . PROCEDURE: Radiographs of the chest and abdomen (obstructive series). HISTORY: abd pain. COMPARISON: No prior. TECHNIQUE: AP radiograph of the chest, with upright and supine radiographs of the abdomen. FINDINGS: CHEST: Lungs: Clear. Cardiovascular: Normal size heart. No pulmonary vascular congestion. Pleura: No pleural fluid. No pneumothorax. Other findings: None. ABDOMEN AND PELVIS: Bowel: Unremarkable bowel gas pattern. No evidence of mechanical obstruction. Free air: None. Bones: No lytic or blastic osseous lesion. No acute fracture. Degenerative disc disease L3-4 and L4-5. Other findings: None. IMPRESSION: Normal bowel gas pattern. No pulmonary infiltrate. - CT Scan/US CT abdo Other Rad Studies (CT/US): Read By Radiologist, Radiology Report Reviewed CT/US Interpretation: Accession No. : [id number]. Patient Name / ID : ESTHELA CRESPO / [id number]. Exam Date : 02/12/2018 14:26:41 ( Approved ). Study Comment : Sex / Age : M / 62Y. Creator : Baldemar Meek MD. Dictator : Baldemar Meek MD. Auto Clutch Specialist : Dye Blender : Baldemar Meek MD. Approver2 : Report Date : 02/12/2018 15:04:42. My Comment : . PROCEDURE: CT Abdomen and Pelvis without intravenous contrast. HISTORY: abd pain, vomiting, acute renal failure. COMPARISON: 07/15/2017. TECHNIQUE: Without contrast.. Contrast dose: 0. Radiation dose: Total exam DLP = 360.82 mGy-cm. This CT exam was performed using one or more of the following dose reduction techniques: Automated exposure control, adjustment of the mA and/or kV according to patient size, and/or use of iterative reconstruction technique. FINDINGS: LOWER THORAX: Unremarkable. LIVER: Diffusely diminished attenuation consistent with fatty infiltration. No mass. Smooth contour. No biliary dilatation. GALLBLADDER AND BILE DUCTS: Unremarkable. PANCREAS: No mass. No pancreatic ductal dilatation. No evidence of acute pancreatitis. Numerous punctate pancreatic calcifications consistent with chronic pancreatitis. SPLEEN: Unremarkable. ADRENALS: Unremarkable. No mass. KIDNEYS AND URETERS: Unremarkable. No hydronephrosis. No solid mass. VASCULATURE: Unremarkable. No aortic aneurysm. BOWEL: Unremarkable. No obstruction. No gross mural thickening. APPENDIX: Unremarkable. Normal appendix. PERITONEUM: Unremarkable. No free fluid. No free air. LYMPH NODES: Unremarkable. No enlarged lymph nodes. BLADDER: Unremarkable. REPRODUCTIVE : Normal prostate. BONES: No acute fracture. OTHER FINDINGS: None. IMPRESSION: No acute abnormality. Chronic pancreatitis. Fatty infiltration of the liver. Progress Note: Plan: - Labs. - CXR. - Obstrictive Series X-Ray. - Morphine 4 mg IVP. - IV fluids. - Zofran 4 mg IVP. - UA. Case was d/w who accepted him to his servive to [place] for admission. Disposition - Disposition Disposition: HOSPITALIZED Disposition Time: 16:26 Condition: FAIR - Clinical Impression Clinical Impression: Vomiting, Acute renal failure - PA / DINING SERVICES DIRECTOR / Resident Statement MD/DO has reviewed & agrees with the documentation as recorded. - Scribe Statement The provider has reviewed the documentation as recorded by the Scribe Rogers Valdivia All medical record entries made by the Ava were at my direction and personally dictated by me. I have reviewed the chart and agree that the record accurately reflects my personal performance of the history, physical exam, medical decision making, and the department course for this patient. I have also personally directed, reviewed, and agree with the discharge instructions and disposition. Decision To Admit - Pt Status Changed To: Hospital Disposition Of: Inpatient - Admit Certification Admit to Inpatient:: After my assessment, the patient will require hospitalization for at least two midnights. This is because of the severity of symptoms shown, intensity of services needed, and/or the medical risk in this patient being treated as an outpatient. - InPatient: Physician Admission Certification:: Pt has acute renal failure, needs work up that will need more than 2 days of hospitalization. - . Bed Request Type: Regular Admitting Physician: Brian Sanchez Jr. Patient Diagnosis: Vomiting, Acute renal failure
[2018-02-12 13:17] LABS: BASO % 1.1 % (0.0-2.0); EOS # 0.1 K/uL (0.0-0.7); EOS % 2.3 % (0.0-4.0); HEMOGLOBIN 9.9 g/dL (12.0-18.0); MONO # 0.5 K/uL (0.0-0.8); NEUT # 1.4 K/uL (1.8-7.0)
[2018-02-12 13:22] LABS: SQUAMOUS EPITHIAL 7 /hpf (0-5); URINE BILIRUBIN NEGATIVE (NEGATIVE); URINE BLOOD 1+ (NEGATIVE); URINE CLARITY Hazy (Clear); URINE COLOR Yellow (YELLOW); URINE GLUCOSE (UA) NORMAL (Normal); URINE HYALINE CAST >20 /lpf (0-2); URINE LEUKOCYTE ESTERASE 1+ Leu/uL (Negative); URINE PROTEIN 1+ mg/dL (NEGATIVE)
[2018-02-12 13:23] LABS: LYMPH # 0.9 K/uL (1.0-4.3); LYMPH % 30.6 % (20.0-40.0); MEAN CORPUSCULAR HEMOGLOBIN 31.9 pg (27.0-31.0); MEAN CORPUSCULAR HGB CONC 34.3 g/dL (33.0-37.0); MEAN PLATELET VOLUME 10.3 fL (7.2-11.7); NRBC % 0.1 % (0.0-2.0); RBC 3.11 Mil/uL (4.40-5.90); RED CELL DISTRIBUTION WIDTH 15.8 % (11.5-14.5)
[2018-02-12 13:29] LABS: WHITE BLOOD COUNT 2.8 K/uL (4.8-10.8)
[2018-02-12 13:33] LABS: ALB/GLOB RATIO 1.2 (1.0-2.1); CALCIUM 9.6 mg/dl (8.6-10.4)
[2018-02-12 13:57] LABS: BARBITURATES, UR NEGATIVE (NEGATIVE); BENZODIAZEPINES, UR NEGATIVE (NEGATIVE); OPIATES, UR NEGATIVE (NEGATIVE); PHENCYCLIDINE, UR NEGATIVE (NEGATIVE)
--- NOTE | 2018-02-12 15:06 | CT ---
PROCEDURE: CT Abdomen and Pelvis without intravenous contrast HISTORY: abd pain, vomiting, acute renal failure COMPARISON: 07/15/2017 TECHNIQUE: Without contrast.. Contrast dose: 0 Radiation dose: Total exam DLP = 360.82 mGy-cm. This CT exam was performed using one or more of the following dose reduction techniques: Automated exposure control, adjustment of the mA and/or kV according to patient size, and/or use of iterative reconstruction technique. FINDINGS: LOWER THORAX: Unremarkable. LIVER: Diffusely diminished attenuation consistent with fatty infiltration. No mass. Smooth contour. No biliary dilatation. GALLBLADDER AND BILE DUCTS: Unremarkable. PANCREAS: No mass. No pancreatic ductal dilatation. No evidence of acute pancreatitis. Numerous punctate pancreatic calcifications consistent with chronic pancreatitis. SPLEEN: Unremarkable. ADRENALS: Unremarkable. No mass. KIDNEYS AND URETERS: Unremarkable. No hydronephrosis. No solid mass. VASCULATURE: Unremarkable. No aortic aneurysm. BOWEL: Unremarkable. No obstruction. No gross mural thickening. APPENDIX: Unremarkable. Normal appendix. PERITONEUM: Unremarkable. No free fluid. No free air. LYMPH NODES: Unremarkable. No enlarged lymph nodes. BLADDER: Unremarkable. REPRODUCTIVE: Normal prostate BONES: No acute fracture. OTHER FINDINGS: None. IMPRESSION: No acute abnormality. Chronic pancreatitis. Fatty infiltration of the liver.
[2018-02-12] MEDS ORDERED: Morphine 4 MG/ML VIAL IV STA (16:36)
[2018-02-12] MEDS: Sodium Chloride 0.9% 1,000 ML IV SCH ×2 (17:21→20:20)
--- NOTE | 2018-02-12 17:43 | CP.PCM.HP ---
History of Present Illness - History of Present Illness History of Present Illness: 62 year old male with past medical history of hypertension, anxiety, pancreatitis, and CHF presents to the ED today complains of epigastric abdominal pain, nausea and vomiting. Patient reports his symptoms first started suddenly about 3 days ago. He states the pain is cramping in quality, non radiating, and it is worsen with oral intake. He vomited so many times that he lost count. His vomits were clear in color. Patient has no appetite since the onset of the symptoms. He reports his symptoms became significantly worse this afternoon which prompted the patient to seek for medical attention. Other association symptoms include subjective fever, chills, and fatigue. No prior history of the same. His last alcohol intake was 2 weeks ago, where he had two shots of vodka. Patient denies sick contacts, recent travels, shortness of breath, chest pain, or urinary symptoms. Sister Lucy [phone] Previous PMD: [place] PMHx: hypertension, anxiety, pancreatitis, and CHF PSHx: Loop recorder placement Allergy: Shellfish (anaphylaxis) Social: Former smoker quit 4 years ago, social alcohol consumption, denies other drug use. 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 Family Hx: father with throat cancer Home meds: none Present on Admission - Present on Admission Any Indicators Present on Admission: No Review of Systems - Review of Systems All systems: reviewed and no additional remarkable complaints except - Constitutional Constitutional: As Per HPI, Chills, Fever - EENT Eyes: As Per HPI. absent: Blurred Vision, Change in Vision Ears: As Per HPI. absent: Decreased Hearing, Dizziness Nose/Mouth/Throat: As Per HPI. absent: Epistaxis, Nasal Obstruction, Nasal Trauma - Cardiovascular Cardiovascular: As Per HPI. absent: Chest Pain, Chest Pain at Rest, Chest Pain with Activity, Diaphoresis - Respiratory Respiratory: As Per HPI. absent: Cough, Dyspnea, Wheezing - Gastrointestinal Gastrointestinal: As Per HPI, Abdominal Pain, Diarrhea, Nausea, Vomiting - Genitourinary Genitourinary: As Per HPI. absent: Dysuria, Flank Pain, Hematuria - Reproductive: Male Reproductive:Male: As Per HPI - Musculoskeletal Musculoskeletal: As Per HPI. absent: Back Pain, Deformity, Joint Swelling - Integumentary Integumentary: As Per HPI. absent: Acne, Alopecia, Bleeding Lesions - Neurological Neurological: As Per HPI. absent: Dizziness, Numbness, Syncope, Tingling, Tremor - Psychiatric Psychiatric: As Per HPI. absent: Anxiety, Depression - Endocrine Endocrine: As Per HPI - Hematologic/Lymphatic Hematologic: As Per HPI Past Patient History - Infectious Disease Hx of Infectious Diseases: None - Past Medical History & Family History Past Medical History?: Yes - Past Social History Smoking Status: Never Smoked - CARDIAC Hx Congestive Heart Failure: Yes Hx Hypertension: Yes Hx Peripheral Edema: Yes - PULMONARY Hx Respiratory Disorders: No - NEUROLOGICAL Hx Seizures: No - HEENT Hx HEENT Problems: Yes Hx Cataracts: Yes ([facility].Cataract Extraction 2013) - RENAL Hx Chronic Kidney Disease: No Hx Kidney Stones: No - ENDOCRINE/METABOLIC Hx Endocrine Disorders: No - HEMATOLOGICAL/ONCOLOGICAL Hx Anemia: Yes Hx Human Immunodeficiency Virus (HIV): No - INTEGUMENTARY Hx Dermatological Problems: No - MUSCULOSKELETAL/RHEUMATOLOGICAL Hx Arthritis: Yes - GASTROINTESTINAL Hx Gastritis: Yes Hx Pancreatitis: Yes - GENITOURINARY/GYNECOLOGICAL Hx Sexually Transmitted Disorders: No - PSYCHIATRIC Hx Anxiety: Yes Hx Depression: Yes Hx Substance Use: No - SURGICAL HISTORY Hx Surgeries: Yes Hx Eye Surgery: Yes ([facility]. Cataract Extraction 2013) Other/Comment: "head injury" hx. "implanted loop recorder" - ANESTHESIA Hx Anesthesia: Yes Hx Anesthesia Reactions: No Hx Malignant Hyperthermia: No Meds Allergies/Adverse Reactions: Allergies Allergy/AdvReac Type Severity Reaction Status Date / Time Iodinated Contrast- Oral and Allergy Severe SWELLING Verified 02/12/18 11:15 IV Dye shellfish derived Allergy Intermediate RASH Verified 02/12/18 11:15 milk AdvReac Intermediate DIARRHEA Verified 02/12/18 11:15 Physical Exam - Constitutional Appears: Non-toxic, No Acute Distress - Head Exam Head Exam: ATRAUMATIC, NORMOCEPHALIC - Eye Exam Eye Exam: EOMI, Normal appearance, PERRL - ENT Exam ENT Exam: Mucous Membranes Dry - Neck Exam Neck exam: Positive for: Normal Inspection - Respiratory Exam Respiratory Exam: Clear to Auscultation Bilateral, NORMAL BREATHING PATTERN. absent: Rhonchi, Wheezes, Respiratory Distress - Cardiovascular Exam Cardiovascular Exam: REGULAR RHYTHM, +S1, +S2 - GI/Abdominal Exam GI & Abdominal Exam: Soft, Tenderness (epigastric tenderness). absent: Hernia, Mass - Rectal Exam Rectal Exam: Deferred - Extremities Exam Extremities exam: Positive for: normal inspection, pedal pulses present. Negative for: pedal edema, tenderness - Back Exam Back exam: NORMAL INSPECTION - Neurological Exam Neurological exam: Alert, CN II-XII Intact, Oriented x3 - Psychiatric Exam Psychiatric exam: Normal Affect, Normal Mood - Skin Skin Exam: Dry, Warm Results - Vital Signs Recent Vital Signs: Last Vital Signs Temp 98.4 F 02/12/18 11:12 Pulse 86 02/12/18 11:12 Resp 16 02/12/18 11:12 BP 106/64 02/12/18 11:12 Pulse Ox 98 02/12/18 16:28 - Labs Result Diagrams: 02/12/18 13:10 02/12/18 13:10 Labs: Laboratory Results - last 24 hr 02/12/18 02/12/18 02/12/18 13:10 13:10 13:10 WBC 2.8 L D RBC 3.11 L Hgb 9.9 L Hct 28.9 L MCV 93.0 D MCH 31.9 H MCHC 34.3 RDW 15.8 H Plt Count 145 D MPV 10.3 Neut % (Auto) 50.0 Lymph % (Auto) 30.6 [place] % (Auto) 16.0 H Eos % (Auto) 2.3 Baso % (Auto) 1.1 Neut # (Auto) 1.4 L Lymph # (Auto) 0.9 L [place] # (Auto) 0.5 Eos # (Auto) 0.1 Baso # (Auto) 0.0 Sodium 137 Potassium 3.6 Chloride 87 L Carbon Dioxide 28 Anion Gap 25 H BUN 40 H Creatinine 2.6 H Est GFR ( Amer) 30 Est GFR (Non-Af Amer) 25 Random Glucose 97 Lactic Acid Calcium 9.6 Total Bilirubin 1.2 AST 202 H ALT 55 Alkaline Phosphatase 57 Total Protein 9.1 H Albumin 5.0 Globulin 4.1 H Albumin/Globulin Ratio 1.2 Lipase 212 Urine Color Yellow Urine Clarity Hazy Urine pH 6.0 Ur Specific [place] 1.015 Urine Protein 1+ H Urine Glucose (UA) Normal Urine Ketones Trace Urine Blood 1+ H Urine Nitrate Negative Urine Bilirubin Negative Urine Urobilinogen 4.0 Ur Leukocyte Esterase 1+ H Urine WBC (Auto) 11 H Urine RBC (Auto) 12 H Ur Squamous Epith Cells 7 H Hyaline Casts >20 H Urine Opiates Screen Urine Methadone Screen Ur Barbiturates Screen Ur Phencyclidine Scrn Ur Amphetamines Screen U Benzodiazepines Scrn U Oth Cocaine Metabols U Cannabinoids Screen 02/12/18 02/12/18 13:10 13:13 WBC RBC Hgb Hct MCV MCH MCHC RDW Plt Count MPV Neut % (Auto) Lymph % (Auto) [place] % (Auto) Eos % (Auto) Baso % (Auto) Neut # (Auto) Lymph # (Auto) [place] # (Auto) Eos # (Auto) Baso # (Auto) Sodium Potassium Chloride Carbon Dioxide Anion Gap BUN Creatinine Est GFR ( Amer) Est GFR (Non-Af Amer) Random Glucose Lactic Acid 2.0 Calcium Total Bilirubin AST ALT Alkaline Phosphatase Total Protein Albumin Globulin Albumin/Globulin Ratio Lipase Urine Color Urine Clarity Urine pH Ur Specific [place] Urine Protein Urine Glucose (UA) Urine Ketones Urine Blood Urine Nitrate Urine Bilirubin Urine Urobilinogen Ur Leukocyte Esterase Urine WBC (Auto) Urine RBC (Auto) Ur Squamous Epith Cells Hyaline Casts Urine Opiates Screen Negative Urine Methadone Screen Negative Ur Barbiturates Screen Negative Ur Phencyclidine Scrn Negative Ur Amphetamines Screen Negative U Benzodiazepines Scrn Negative U Oth Cocaine Metabols Negative U Cannabinoids Screen Negative Assessment & Plan - Assessment and Plan (Free Text) Assessment: Acute renal failure -prolong nausea, vomiting vs infectious vs autoimmune etiologies -BUN/CR - 40/2.6, elevated from baseline -UA shows >20 hyaline casts -IVF NS@ 125ml/hr -Nephrology consulted, Dr. Cochran help appreciated -Avoid nephrotoxic agents -Follow up renal u/s -Follow up HIV, A1C, 24hr urine protein, creatinine Gastroenteritis -CT abdomen shows No acute abnormality. Chronic pancreatitis. Fatty infiltration of the liver -Abd Ob series shows normal bowel gas pattern. No pulmonary infiltrate -Liquid diet -IVF -Follow up HIV, stool culture, o &p, c diff -Zofran prn -Morphine 1mg q6 prn -Tylenol prn Hx of HTN -Stable -Hold med since borderline hypotensive CAD -ASA -Hold beta kinjal as of now Prophylactic measures -Lovenox -Protonix Case discussed with attending physician Dr. Sanchez
--- NOTE | 2018-02-12 18:36 | US ---
PROCEDURE: Ultrasound of the Kidneys HISTORY: ARF COMPARISON: 11/11/2016. Abdominal ultrasound occluding the right kidney.. TECHNIQUE: Sonogram of the kidneys. FINDINGS: RIGHT KIDNEY: Measures: 4.8 x 10.1 cm. Normal in size, contour and echogenicity. No stone, solid mass lesion or hydronephrosis visualized. LEFT KIDNEY: Measures: 4.8 x 10.2 cm. Normal in size, contour and echogenicity. No stone, solid mass lesion or hydronephrosis visualized. OTHER FINDINGS: None. IMPRESSION: Unremarkable renal sonogram.
[2018-02-12] MEDS: Morphine 4 MG/ML VIAL IVP PRN (18:59)
[2018-02-13] MEDS: Morphine 4 MG/ML VIAL IVP PRN ×3 (01:02→16:17)
[2018-02-13 01:05] VITALS: RESP 20
[2018-02-13] MEDS: Sodium Chloride 0.9% 1,000 ML IV SCH ×4 (01:34→18:58)
--- NOTE | 2018-02-13 06:31 | CP.PCM.PN ---
Subjective - Date & Time of Evaluation Date of Evaluation: 02/13/18 Time of Evaluation: 06:25 - Subjective Subjective: PGY-[address] Sanchez's service: Pt seen and examined at bedside. Nursing reports no acute events overnight. Patient found lying in bed comfortably. Admits feeling better since receiving fluids and denies N/V overnight. He states he would like to advance diet to solid food for dinner if he has no problem with lunch. Admits he has difficulty starting urination, and often must wake up several times per night to go. Patient admits long history of alcohol use, stating he drinks 3-5+ shots of vodka "almost every night" for last 5+ years. States his last drink was 4-5 days ago because he has not been able to drink due to his stomach illness. Denies formication, tremors, or hallucinations. It should be noted this alcohol history differs from intake history (H&P from 02/12), and patient states today's account is the "more correct history." Objective - Vital Signs/Intake and Output Vital Signs (last 24 hours): Temp Pulse Resp BP Pulse Ox 98 F 71 20 134/78 98 02/13/18 00:00 02/13/18 00:00 02/13/18 00:00 02/13/18 00:00 02/13/18 00:00 Intake and Output: 02/12/18 02/13/18 18:59 06:59 Intake Total 200 Balance 200 - Medications Medications: Current Medications Acetaminophen (Tylenol 325mg Tab) 650 mg PO Q6 PRN PRN Reason: Fever >100.4 F Aspirin (Aspirin Chewable) 81 mg PO DAILY [facility] Enoxaparin Sodium (Lovenox) 40 mg SC DAILY [facility] Sodium Chloride (Sodium Chloride 0.9%) 1,000 mls @ 125 mls/hr IV .Q8H ALBERTO Last Admin: 02/13/18 04:33 Dose: 125 mls/hr Morphine Sulfate (Morphine) 1 mg IVP Q4 PRN PRN Reason: Pain, severe (8-10) Last Admin: 02/13/18 01:02 Dose: 1 mg Ondansetron HCl (Zofran Inj) 4 mg IVP DAILY@ONCE PRN PRN Reason: Nausea/Vomiting Pantoprazole Sodium (Protonix Ec Tab) 40 mg PO DAILY [facility] Pneumococcal Polyvalent Vaccine (Pneumovax 23 Vaccine) 0.5 ml IM .ONCE ONE Stop: 02/13/18 10:01 - Labs Labs: 02/12/18 13:10 02/12/18 13:10 - Additional Findings Additional findings: - Constitutional Appears: Non-toxic, No Acute Distress - Head Exam Head Exam: ATRAUMATIC, NORMOCEPHALIC - Eye Exam Eye Exam: EOMI, Normal appearance, PERRL - ENT Exam ENT Exam: Mucous Membranes Dry - no tongue fasciculations - Neck Exam Neck exam: Positive for: Normal Inspection - Respiratory Exam Respiratory Exam: Clear to Auscultation Bilateral, NORMAL BREATHING PATTERN. absent: Rhonchi, Wheezes, Respiratory Distress - Cardiovascular Exam Cardiovascular Exam: REGULAR RHYTHM, +S1, +S2 - GI/Abdominal Exam GI & Abdominal Exam: Soft, Tenderness (umbilical tenderness). absent: Hernia, Mass - Rectal Exam Rectal Exam: prostate enlargement (no nodules) - Extremities Exam Extremities exam: Positive for: normal inspection, pedal pulses present. Negative for: pedal edema, tenderness - no tremors - Back Exam Back exam: NORMAL INSPECTION - Neurological Exam Neurological exam: Alert, CN II-XII Intact, Oriented x3 - Psychiatric Exam Psychiatric exam: Normal Affect, Normal Mood - Skin Skin Exam: Dry, Warm Assessment and Plan - Assessment and Plan (Free Text) Plan: Acute Renal Failure -prolong nausea, vomiting vs infectious vs autoimmune etiologies -BUN/CR - 40/2.6, elevated from baseline -UA shows >20 hyaline casts -Renal u/s: Normal renal US -Urine Tox negative Nephrology consulted, Dr. Cochran help appreciated - Etiology: ELISA likely volume depletion, but cannot r/o CKD -Avoid nephrotoxic agents - f/u CPK, UA, Urine Protein/Cr -Follow up HIV, A1C -IVF NS@ 125ml/hr Gastroenteritis -CT abdomen (02/12/18): No acute abnormality. Chronic pancreatitis. Fatty infiltration of the liver -Abd Obstruction series shows normal bowel gas pattern. No pulmonary infiltrate -Liquid diet -NS @ 125cc/hr -HIV negative -stool culture -o &p - c diff - Lipase 212 Zofran prn Morphine 1mg q6 prn Tylenol prn EtOH abuse disorder Denies prior DTs, 4-5 days since last drink CIWA protocol Banana BAg Ativan Q4H PRN for symptoms Transaminitis AST/ALT 202/55 on admission - improving 124/40 this AM Hx of HTN -well controlled -Hold med since borderline hypotensive Pancytopenia Etiology: ? long-term alcoholism, MCV WNL WBC 2.8 HIV negative BPH Start Flomax 0.4mg PO Daily Abnormal UA UA (02/13/18): Hyaline casts, 1+ blood, 1+ protein, 1+ LE, Sq ep >5 -will repeat after hydration CAD -ASA -Hold beta kinjal as of now Electrolyte abnormality K 3.5, repleted Prophylactic measures -Lovenox -Protonix Fermin Aguayo PGY-2 Case discussed with attending physician Dr. Sanchez
[2018-02-13 07:18] LABS: BASO % 1.4 % (0.0-2.0); EOS # 0.1 K/uL (0.0-0.7); EOS % 3.7 % (0.0-4.0); HEMOGLOBIN 8.9 g/dL (12.0-18.0); LYMPH # 0.6 K/uL (1.0-4.3); MEAN CELL VOLUME 93.6 fL (80.0-94.0); MEAN CORPUSCULAR HGB CONC 34.2 g/dL (33.0-37.0); MONO # 0.3 K/uL (0.0-0.8); MONO % 14.9 % (0.0-10.0); NEUT # 1.1 K/uL (1.8-7.0); RBC 2.77 Mil/uL (4.40-5.90); RED CELL DISTRIBUTION WIDTH 15.8 % (11.5-14.5); WHITE BLOOD COUNT 2.1 K/uL (4.8-10.8)
[2018-02-13 08:05] LABS: ALB/GLOB RATIO 1.3 (1.0-2.1); ALBUMIN 4.1 g/dL (3.5-5.0); CALCIUM 8.4 mg/dl (8.6-10.4)
[2018-02-13] MEDS: Pantoprazole 40 mg EC Tab PO SCH (09:53)
[2018-02-13] MEDS: Enoxaparin 40 mg Syringe SC SCH (09:54)
[2018-02-13] MEDS ORDERED: Pneumococcal 23-Valent Vaccine IM ONE (10:00)
--- NOTE | 2018-02-13 10:14 | CP.PCM.CON ---
History of Present Illness - History of Present Illness History of Present Illness: 62 year old male with past medical history of hypertension, anxiety, pancreatitis, and CHF presents to the ED today complains of epigastric abdominal pain, nausea and vomiting. Patient reports his symptoms first started suddenly about 3 days ago. He states the pain is cramping in quality, non radiating, and it is worsen with oral intake. He vomited so many times that he lost count. His vomits were clear in color. Patient has no appetite since the onset of the symptoms. He reports his symptoms became significantly worse this afternoon which prompted the patient to seek for medical attention. Other association symptoms include subjective fever, chills, and fatigue. No prior history of the same. His last alcohol intake was 2 weeks ago, where he had two shots of vodka. Patient denies sick contacts, recent travels, shortness of breath, chest pain, or urinary symptoms. Patient reports no known history of renal disease, history of passing kidney stone many years ago - no intervention required No use of nsaids NO history of prostatic disease, No LUTS Sister Lucy [phone] Previous PMD: [facility] PMHx: hypertension, anxiety, pancreatitis, and CHF PSHx: Loop recorder placement Allergy: Shellfish (anaphylaxis) Social: Former smoker quit 4 years ago, social alcohol consumption, denies other drug use. 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 Family Hx: father with throat cancer Home meds: none Review of Systems - Constitutional Constitutional: Fatigue. absent: Fever - EENT Eyes: absent: Blurred Vision, Dry Eye, Pain, Photophobia Ears: absent: Decreased Hearing, Ear Discharge Nose/Mouth/Throat: absent: Nasal Congestion, Nose Pain, Dry Mouth, Mouth Pain - Cardiovascular Cardiovascular: absent: Chest Pain, Chest Pain at Rest, Leg Edema, Palpitations - Respiratory Respiratory: absent: Cough, Dyspnea, Wheezing, Snoring, Chest Congestion - Gastrointestinal Gastrointestinal: Abdominal Pain, Nausea, Vomiting. absent: Constipation - Genitourinary Genitourinary: absent: Hematuria, Nocturia, Urinary Frequency - Musculoskeletal Musculoskeletal: absent: Abnormal Gait, Back Pain, Joint Swelling - Integumentary Integumentary: absent: Dry Skin, Lesions, Sores - Neurological Neurological: absent: Convulsions, Disequilibrium, Headaches, Tremor - Psychiatric Psychiatric: absent: Confusion, Depression, Hallucinations - Endocrine Endocrine: absent: Cold Intolorance, Flushing, Heat Intolorance - Hematologic/Lymphatic Hematologic: absent: Easy Bleeding, Easy Bruising Past Patient History - Infectious Disease Hx of Infectious Diseases: None - Past Medical History & Family History Past Medical History?: Yes - Past Social History Smoking Status: Former Smoker - CARDIAC Hx Congestive Heart Failure: Yes Hx Hypertension: Yes Hx Peripheral Edema: Yes - PULMONARY Hx Respiratory Disorders: No - NEUROLOGICAL Hx Seizures: No - HEENT Hx HEENT Problems: Yes Hx Cataracts: Yes ([facility].Cataract Extraction 2013) - RENAL Hx Chronic Kidney Disease: No Hx Kidney Stones: No - ENDOCRINE/METABOLIC Hx Endocrine Disorders: No - HEMATOLOGICAL/ONCOLOGICAL Hx Anemia: Yes Hx Human Immunodeficiency Virus (HIV): No - INTEGUMENTARY Hx Dermatological Problems: No - MUSCULOSKELETAL/RHEUMATOLOGICAL Hx Arthritis: Yes Hx Falls: Yes - GASTROINTESTINAL Hx Gastritis: Yes Hx Pancreatitis: Yes - GENITOURINARY/GYNECOLOGICAL Hx Sexually Transmitted Disorders: No - PSYCHIATRIC Hx Anxiety: Yes Hx Depression: Yes Hx Substance Use: No - SURGICAL HISTORY Hx Surgeries: Yes Hx Eye Surgery: Yes ([facility]. Cataract Extraction 2013) Other/Comment: "head injury" hx. "implanted loop recorder" - ANESTHESIA Hx Anesthesia: Yes Hx Anesthesia Reactions: No Hx Malignant Hyperthermia: No Meds Allergies/Adverse Reactions: Allergies Allergy/AdvReac Type Severity Reaction Status Date / Time Iodinated Contrast- Oral and Allergy Severe SWELLING Verified 02/12/18 11:15 IV Dye shellfish derived Allergy Intermediate RASH Verified 02/12/18 11:15 milk AdvReac Intermediate DIARRHEA Verified 02/12/18 11:15 - Medications Medications: Current Medications Acetaminophen (Tylenol 325mg Tab) 650 mg PO Q6 PRN PRN Reason: Fever >100.4 F Aspirin (Aspirin Chewable) 81 mg PO DAILY [facility] Last Admin: 02/13/18 09:53 Dose: 81 mg Enoxaparin Sodium (Lovenox) 40 mg SC DAILY [facility] Last Admin: 02/13/18 09:54 Dose: 40 mg Sodium Chloride (Sodium Chloride 0.9%) 1,000 mls @ 125 mls/hr IV .Q8H [facility] Last Admin: 02/13/18 04:33 Dose: 125 mls/hr Morphine Sulfate (Morphine) 1 mg IVP Q4 PRN PRN Reason: Pain, severe (8-10) Last Admin: 02/13/18 08:10 Dose: 1 mg Ondansetron HCl (Zofran Inj) 4 mg IVP DAILY@ONCE PRN PRN Reason: Nausea/Vomiting Pantoprazole Sodium (Protonix Ec Tab) 40 mg PO DAILY [facility] Last Admin: 02/13/18 09:53 Dose: 40 mg Physical Exam - Constitutional Appears: Non-toxic, Unkempt, Cachectic, Chronically Ill - Head Exam Head Exam: ATRAUMATIC, NORMAL INSPECTION - Eye Exam Eye Exam: EOMI, Normal appearance - ENT Exam ENT Exam: Mucous Membranes Dry, Normal Oropharynx - Neck Exam Neck exam: Negative for: Lymphadenopathy, Thyromegaly - Respiratory Exam Respiratory Exam: NORMAL BREATHING PATTERN. absent: Rhonchi, Wheezes - Cardiovascular Exam Cardiovascular Exam: +S1, +S2. absent: Rubs - GI/Abdominal Exam GI & Abdominal Exam: Normal Bowel Sounds, Soft, Tenderness - Extremities Exam Extremities exam: Negative for: joint swelling, pedal edema - Back Exam Back exam: absent: rash noted, tenderness - Neurological Exam Neurological exam: Alert, CN II-XII Intact - Psychiatric Exam Psychiatric exam: Normal Affect, Normal Mood - Skin Skin Exam: Dry, Intact Results - Vital Signs Recent Vital Signs: Last Vital Signs Temp 97.9 F 02/13/18 07:44 Pulse 65 02/13/18 07:44 Resp 20 02/13/18 07:44 BP 120/82 02/13/18 07:44 Pulse Ox 98 02/13/18 07:44 - Labs Result Diagrams: 02/13/18 07:06 02/13/18 07:06 Labs: Laboratory Results - last 24 hr 02/12/18 02/12/18 02/12/18 13:10 13:10 13:10 WBC 2.8 L D RBC 3.11 L Hgb 9.9 L Hct 28.9 L MCV 93.0 D MCH 31.9 H MCHC 34.3 RDW 15.8 H Plt Count 145 D MPV 10.3 Neut % (Auto) 50.0 Lymph % (Auto) 30.6 [place] % (Auto) 16.0 H Eos % (Auto) 2.3 Baso % (Auto) 1.1 Neut # (Auto) 1.4 L Lymph # (Auto) 0.9 L [place] # (Auto) 0.5 Eos # (Auto) 0.1 Baso # (Auto) 0.0 Sodium 137 Potassium 3.6 Chloride 87 L Carbon Dioxide 28 Anion Gap 25 H BUN 40 H Creatinine 2.6 H Est GFR ( Amer) 30 Est GFR (Non-Af Amer) 25 Random Glucose 97 Hemoglobin A1c Lactic Acid Calcium 9.6 Total Bilirubin 1.2 AST 202 H ALT 55 Alkaline Phosphatase 57 Total Creatine Kinase Total Protein 9.1 H Albumin 5.0 Globulin 4.1 H Albumin/Globulin Ratio 1.2 Lipase 212 Urine Color Yellow Urine Clarity Hazy Urine pH 6.0 Ur Specific [place] 1.015 Urine Protein 1+ H Urine Glucose (UA) Normal Urine Ketones Trace Urine Blood 1+ H Urine Nitrate Negative Urine Bilirubin Negative Urine Urobilinogen 4.0 Ur Leukocyte Esterase 1+ H Urine WBC (Auto) 11 H Urine RBC (Auto) 12 H Ur Squamous Epith Cells 7 H Hyaline Casts >20 H Urine Opiates Screen Urine Methadone Screen Ur Barbiturates Screen Ur Phencyclidine Scrn Ur Amphetamines Screen U Benzodiazepines Scrn U Oth Cocaine Metabols U Cannabinoids Screen Alcohol, Quantitative HIV 1&2 Antibody Screen 02/12/18 02/12/18 02/12/18 13:10 13:13 18:58 WBC RBC Hgb Hct MCV MCH MCHC RDW Plt Count MPV Neut % (Auto) Lymph % (Auto) [place] % (Auto) Eos % (Auto) Baso % (Auto) Neut # (Auto) Lymph # (Auto) [place] # (Auto) Eos # (Auto) Baso # (Auto) Sodium Potassium Chloride Carbon Dioxide Anion Gap BUN Creatinine Est GFR ( Amer) Est GFR (Non-Af Amer) Random Glucose Hemoglobin A1c Lactic Acid 2.0 Calcium Total Bilirubin AST ALT Alkaline Phosphatase Total Creatine Kinase 326 H Total Protein Albumin Globulin Albumin/Globulin Ratio Lipase Urine Color Urine Clarity Urine pH Ur Specific [place] Urine Protein Urine Glucose (UA) Urine Ketones Urine Blood Urine Nitrate Urine Bilirubin Urine Urobilinogen Ur Leukocyte Esterase Urine WBC (Auto) Urine RBC (Auto) Ur Squamous Epith Cells Hyaline Casts Urine Opiates Screen Negative Urine Methadone Screen Negative Ur Barbiturates Screen Negative Ur Phencyclidine Scrn Negative Ur Amphetamines Screen Negative U Benzodiazepines Scrn Negative U Oth Cocaine Metabols Negative U Cannabinoids Screen Negative Alcohol, Quantitative < 10 HIV 1&2 Antibody Screen 02/12/18 02/12/18 02/13/18 18:58 18:58 07:06 WBC 2.1 L RBC 2.77 L Hgb 8.9 L Hct 25.9 L MCV 93.6 MCH 32.0 H MCHC 34.2 RDW 15.8 H Plt Count 122 L D MPV 9.0 Neut % (Auto) 50.0 Lymph % (Auto) 30.0 [place] % (Auto) 14.9 H Eos % (Auto) 3.7 Baso % (Auto) 1.4 Neut # (Auto) 1.1 L Lymph # (Auto) 0.6 L [place] # (Auto) 0.3 Eos # (Auto) 0.1 Baso # (Auto) 0.0 Sodium Potassium Chloride Carbon Dioxide Anion Gap BUN Creatinine Est GFR ( Amer) Est GFR (Non-Af Amer) Random Glucose Hemoglobin A1c 5.8 Lactic Acid Calcium Total Bilirubin AST ALT Alkaline Phosphatase Total Creatine Kinase Total Protein Albumin Globulin Albumin/Globulin Ratio Lipase Urine Color Urine Clarity Urine pH Ur Specific [place] Urine Protein Urine Glucose (UA) Urine Ketones Urine Blood Urine Nitrate Urine Bilirubin Urine Urobilinogen Ur Leukocyte Esterase Urine WBC (Auto) Urine RBC (Auto) Ur Squamous Epith Cells Hyaline Casts Urine Opiates Screen Urine Methadone Screen Ur Barbiturates Screen Ur Phencyclidine Scrn Ur Amphetamines Screen U Benzodiazepines Scrn U Oth Cocaine Metabols U Cannabinoids Screen Alcohol, Quantitative HIV 1&2 Antibody Screen Negative 02/13/18 07:06 WBC RBC Hgb Hct MCV MCH MCHC RDW Plt Count MPV Neut % (Auto) Lymph % (Auto) [place] % (Auto) Eos % (Auto) Baso % (Auto) Neut # (Auto) Lymph # (Auto) [place] # (Auto) Eos # (Auto) Baso # (Auto) Sodium 139 Potassium 3.5 L Chloride 95 L Carbon Dioxide 28 Anion Gap 19 BUN 35 H Creatinine 1.8 H Est GFR ( Amer) 46 Est GFR (Non-Af Amer) 38 Random Glucose 100 Hemoglobin A1c Lactic Acid Calcium 8.4 L Total Bilirubin 1.1 AST 124 H D ALT 40 Alkaline Phosphatase 46 Total Creatine Kinase Total Protein 7.3 Albumin 4.1 Globulin 3.2 Albumin/Globulin Ratio 1.3 Lipase Urine Color Urine Clarity Urine pH Ur Specific [place] Urine Protein Urine Glucose (UA) Urine Ketones Urine Blood Urine Nitrate Urine Bilirubin Urine Urobilinogen Ur Leukocyte Esterase Urine WBC (Auto) Urine RBC (Auto) Ur Squamous Epith Cells Hyaline Casts Urine Opiates Screen Urine Methadone Screen Ur Barbiturates Screen Ur Phencyclidine Scrn Ur Amphetamines Screen U Benzodiazepines Scrn U Oth Cocaine Metabols U Cannabinoids Screen Alcohol, Quantitative HIV 1&2 Antibody Screen Assessment & Plan (1) Hypokalemia Status: Acute (2) Pancytopenia Status: Acute (3) Vomiting Status: Acute (4) ELISA (acute kidney injury) Status: Acute (5) Anemia Status: Acute (6) Dehydration Status: Acute (7) Pancreatitis Status: Acute - Assessment and Plan (Free Text) Assessment: Acute kidney injury likely due to volume depletion from GI distress Hypokalemia likely nutritional deficiency, need to evaluate for magnesium deficiency as well Underlying CKD can not be excluded at this point Renal ultrasound reviewed - no obstruction Agree with isotonic IVF for volume replacement Continue current rate Check cpk, ua, and urine for protein and creatinine Daily chemistry Replace potassium and magnesium
[2018-02-13] MEDS ORDERED: Multivitamin (MVI) 10 ML, Thiamine 100 MG, Folic Acid 1 MG in Sodium Chloride 0.9% 1,00... IV ONE ×2 (11:18→16:00)
[2018-02-13] MEDS ORDERED: Potassium Chloride 20 mEq ER Tab PO ONE (11:45)
[2018-02-14] MEDS: Morphine 4 MG/ML VIAL IVP PRN ×5 (00:09→21:37)
--- NOTE | 2018-02-14 07:46 | CP.PCM.PN ---
Subjective - Date & Time of Evaluation Date of Evaluation: 02/14/18 Time of Evaluation: 07:38 - Subjective Subjective: PGY2 note for Dr. Sanchez's Service: Pt seen and examined at bedside. Nursing reports patient given Ativan once overnight for tremors. Patient reports mild nausea and two episodes of watery diarrhea overnight. Still reports hesitancy in urination. Reports tolerating bland diet this AM. No chest pain, fever, chills, sob, or vomiting overnight. Objective - Vital Signs/Intake and Output Vital Signs (last 24 hours): Temp Pulse Resp BP Pulse Ox 99.4 F 80 20 124/75 99 02/13/18 23:30 02/13/18 23:30 02/13/18 23:30 02/13/18 23:30 02/13/18 23:30 Intake and Output: 02/14/18 02/14/18 06:59 18:59 Intake Total 2115 Balance 2115 - Medications Medications: Current Medications Acetaminophen (Tylenol 325mg Tab) 650 mg PO Q6 PRN PRN Reason: Fever >100.4 F Aspirin (Aspirin Chewable) 81 mg PO DAILY [facility] Last Admin: 02/13/18 09:53 Dose: 81 mg Enoxaparin Sodium (Lovenox) 40 mg SC DAILY [facility] Last Admin: 02/13/18 09:54 Dose: 40 mg Folic Acid (Folic Acid) 1 mg PO DAILY [facility] Sodium Chloride (Sodium Chloride 0.9%) 1,000 mls @ 125 mls/hr IV .Q8H [facility] Last Admin: 02/13/18 18:58 Dose: Not Given Lorazepam (Ativan) 1 mg IVP Q4H PRN PRN Reason: Symptoms of alcohol withdrawl Last Admin: 02/13/18 18:16 Dose: 1 mg Morphine Sulfate (Morphine) 1 mg IVP Q4 PRN PRN Reason: Pain, severe (8-10) Last Admin: 02/14/18 05:35 Dose: 1 mg Multivitamins (Hexavitamin) 1 tab PO DAILY [facility] Ondansetron HCl (Zofran Inj) 4 mg IVP DAILY@ONCE PRN PRN Reason: Nausea/Vomiting Pantoprazole Sodium (Protonix Ec Tab) 40 mg PO DAILY [facility] Last Admin: 02/13/18 09:53 Dose: 40 mg Tamsulosin HCl (Flomax) 0.4 mg PO Q24H [facility] Last Admin: 02/13/18 18:15 Dose: 0.4 mg Thiamine HCl (Vitamin B1 Tab) 100 mg PO DAILY [facility] - Labs Labs: 02/13/18 07:06 02/13/18 07:06 - Additional Findings Additional findings: - Constitutional Appears: Non-toxic, No Acute Distress - Head Exam Head Exam: ATRAUMATIC, NORMOCEPHALIC - Eye Exam Eye Exam: EOMI, Normal appearance, PERRL - ENT Exam ENT Exam: Mucous Membranes Dry - no tongue fasciculations - Neck Exam Neck exam: Positive for: Normal Inspection - Respiratory Exam Respiratory Exam: Clear to Auscultation Bilateral, NORMAL BREATHING PATTERN. absent: Rhonchi, Wheezes, Respiratory Distress - Cardiovascular Exam Cardiovascular Exam: REGULAR RHYTHM, +S1, +S2 - GI/Abdominal Exam GI & Abdominal Exam: Soft, Tenderness (umbilical tenderness). absent: Hernia, Mass - Rectal Exam Rectal Exam: prostate enlargement (no nodules) - Extremities Exam Extremities exam: Positive for: normal inspection, pedal pulses present. Negative for: pedal edema, tenderness - no tremors - Back Exam Back exam: NORMAL INSPECTION - Neurological Exam Neurological exam: Alert, CN II-XII Intact, Oriented x3 - Psychiatric Exam Psychiatric exam: Normal Affect, Normal Mood - Skin Skin Exam: Dry, Warm Assessment and Plan - Assessment and Plan (Free Text) Plan: Acute Renal Failure -prolong nausea, vomiting vs infectious vs autoimmune etiologies -BUN/CR - 40/2.6, elevated from baseline -UA shows >20 hyaline casts -Renal u/s: Normal renal US -Urine Tox negative Nephrology consulted, Dr. Cochran help appreciated - Etiology: ELISA likely volume depletion, but cannot r/o CKD -Avoid nephrotoxic agents - CPK 326 -IVF NS@ 200ml/hr Gastroenteritis -CT abdomen (02/12/18): No acute abnormality. Chronic pancreatitis. Fatty infiltration of the liver -Abd Obstruction series shows normal bowel gas pattern. No pulmonary infiltrate -Liquid diet -NS @ 125cc/hr -HIV negative -stool culture -o &p - c diff - Lipase 212 Zofran prn Morphine 1mg q6 prn Tylenol prn EtOH abuse disorder Denies prior DTs, 4-5 days since last drink CIWA protocol PO folic acid/MV/thiamine Ativan Q4H PRN for symptoms Transaminitis AST/ALT 202/55 on admission - continues to improve 102/32 today Hx of HTN -well controlled -Hold med since borderline hypotensive Pancytopenia Etiology: ? long-term alcoholism, MCV WNL WBC 2.8 HIV negative BPH Start Flomax 0.4mg PO Daily Abnormal UA UA (02/13/18): Hyaline casts, 1+ blood, 1+ protein, 1+ LE, Sq ep >5 -will repeat after hydration CAD -ASA -Hold beta kinjal as of now Electrolyte abnormality Mg 1.0 today, repleted Prophylactic measures -Lovenox -Protonix - SCDs Fermin Aguayo PGY-2 Case discussed with attending physician Dr. Sanchez
[2018-02-14 08:18] LABS: U CREAT 24HOUR URINE 1499.4 mg/24hr (800-2800); URINE CREATININE 107.1 mg/dL
[2018-02-14 08:19] LABS: BASO % 0.6 % (0.0-2.0); EOS # 0.1 K/uL (0.0-0.7); EOS % 1.6 % (0.0-4.0); LYMPH # 0.5 K/uL (1.0-4.3); LYMPH % 16.8 % (20.0-40.0); MEAN CELL VOLUME 93.4 fL (80.0-94.0); MEAN CORPUSCULAR HEMOGLOBIN 32.2 pg (27.0-31.0); MEAN CORPUSCULAR HGB CONC 34.4 g/dL (33.0-37.0); MEAN PLATELET VOLUME 9.9 fL (7.2-11.7); MONO # 0.4 K/uL (0.0-0.8); MONO % 12.8 % (0.0-10.0); NEUT # 2.2 K/uL (1.8-7.0); NEUT % 68.2 % (50.0-75.0); RBC 2.49 Mil/uL (4.40-5.90); RED CELL DISTRIBUTION WIDTH 15.3 % (11.5-14.5)
[2018-02-14 08:33] LABS: WHITE BLOOD COUNT 3.2 K/uL (4.8-10.8)
[2018-02-14 09:10] LABS: ALB/GLOB RATIO 1.3 (1.0-2.1); ALBUMIN 3.6 g/dL (3.5-5.0); ALT/SGPT 32 U/L (21-72); AST/SGOT 106 U/L (17-59); BLOOD UREA NITROGEN 17 mg/dL (9-20); CALCIUM 7.7 mg/dl (8.6-10.4); GFR AFRICAN-AMERICAN > 60; GFR NON-AFRICAN AMERICAN > 60
[2018-02-14] MEDS: Pantoprazole 40 mg EC Tab PO SCH (09:44)
[2018-02-14] MEDS: Multiple Vitamins Tab PO SCH (09:44)
[2018-02-14] MEDS: Enoxaparin 40 mg Syringe SC SCH (09:44)
[2018-02-14] MEDS ORDERED: Sodium Chloride 0.9% 1,000 ML IV SCH (10:00)
[2018-02-14] MEDS: Magnesium Sulfate 1 gm in D5W 1 GM/100 ML BAG IVPB SCH ×2 (10:10→11:12)
[2018-02-14] MEDS: Sodium Chloride 0.9% 1,000 ML IV SCH ×2 (10:30→19:26)
--- NOTE | 2018-02-14 13:22 | RAD ---
HISTORY: CHF rapid fluid bolus. COMPARISON: 02/12/2018. FINDINGS: LUNGS: No active pulmonary disease. PLEURA: No significant pleural effusion identified, no pneumothorax apparent. CARDIOVASCULAR: No radiographic findings to suggest acute or significant cardiovascular disease. OSSEOUS STRUCTURES: No significant abnormalities. VISUALIZED UPPER ABDOMEN: Normal. OTHER FINDINGS: None. IMPRESSION: No active disease. No significant interval change compared to the prior examination(s).
[2018-02-15] MEDS: Morphine 4 MG/ML VIAL IVP PRN ×5 (01:58→23:43)
[2018-02-15] MEDS: Sodium Chloride 0.9% 1,000 ML IV SCH ×2 (06:20→17:23)
[2018-02-15 07:58] LABS: BASO % 0.4 % (0.0-2.0); EOS # 0.1 K/uL (0.0-0.7); HEMOGLOBIN 7.5 g/dL (12.0-18.0); LYMPH # 0.4 K/uL (1.0-4.3); LYMPH % 14.2 % (20.0-40.0); MEAN CELL VOLUME 93.4 fL (80.0-94.0); MEAN CORPUSCULAR HEMOGLOBIN 32.3 pg (27.0-31.0); MEAN CORPUSCULAR HGB CONC 34.5 g/dL (33.0-37.0); MEAN PLATELET VOLUME 9.6 fL (7.2-11.7); MONO # 0.5 K/uL (0.0-0.8); MONO % 16.8 % (0.0-10.0); NEUT # 2.1 K/uL (1.8-7.0); NEUT % 66.6 % (50.0-75.0); RBC 2.34 Mil/uL (4.40-5.90); RED CELL DISTRIBUTION WIDTH 15.4 % (11.5-14.5); WHITE BLOOD COUNT 3.1 K/uL (4.8-10.8)
[2018-02-15 08:20] LABS: ALB/GLOB RATIO 1.1 (1.0-2.1); ALBUMIN 3.4 g/dL (3.5-5.0); ALT/SGPT 43 U/L (21-72); AST/SGOT 122 U/L (17-59); BLOOD UREA NITROGEN 9 mg/dL (9-20); CALCIUM 7.9 mg/dl (8.6-10.4); GFR AFRICAN-AMERICAN > 60; GFR NON-AFRICAN AMERICAN > 60
[2018-02-15] MEDS: Magnesium Sulfate 1 gm/100 mL D5W IVPB SCH ×8 (09:06→17:34)
[2018-02-15] MEDS: Multiple Vitamins Tab PO SCH (09:07)
[2018-02-15] MEDS: Pantoprazole 40 mg EC Tab PO SCH (09:07)
[2018-02-15] MEDS ORDERED: Potassium Chloride 20 mEq ER Tab PO ONE (09:10)
--- NOTE | 2018-02-15 11:25 | CP.PCM.PN ---
Subjective - Date & Time of Evaluation Date of Evaluation: 02/15/18 Time of Evaluation: 11:22 - Subjective Subjective: c/o diarrhea, previous nausea, vomiting K, mag being repleted ELISA resolving. good UO same weakness otherwise Objective - Vital Signs/Intake and Output Vital Signs (last 24 hours): Temp Pulse Resp BP Pulse Ox 98.2 F 72 20 130/80 100 02/15/18 08:00 02/15/18 08:00 02/15/18 08:00 02/15/18 08:00 02/15/18 08:00 Intake and Output: 02/15/18 02/15/18 06:59 18:59 Intake Total 2049 Balance 2049 - Medications Medications: Current Medications Acetaminophen (Tylenol 325mg Tab) 650 mg PO Q6 PRN PRN Reason: Fever >100.4 F Folic Acid (Folic Acid) 1 mg PO DAILY [facility] Last Admin: 02/15/18 09:07 Dose: 1 mg Sodium Chloride (Sodium Chloride 0.9%) 1,000 mls @ 100 mls/hr IV .Q10H [facility] Last Admin: 02/15/18 06:20 Dose: Not Given Lorazepam (Ativan) 1 mg IVP Q4H PRN PRN Reason: Symptoms of alcohol withdrawl Last Admin: 02/14/18 19:15 Dose: 1 mg Magnesium Sulfate/Dextrose (Magnesium Sulfate 1 Gm/100 Ml D5w) 1 gm IVPB Q1H [facility] Stop: 02/15/18 11:33 Last Admin: 02/15/18 10:26 Dose: 1 gm Morphine Sulfate (Morphine) 1 mg IVP Q4 PRN PRN Reason: Pain, severe (8-10) Last Admin: 02/15/18 06:40 Dose: 1 mg Multivitamins (Hexavitamin) 1 tab PO DAILY [facility] Last Admin: 02/15/18 09:07 Dose: 1 tab Ondansetron HCl (Zofran Inj) 4 mg IVP DAILY@ONCE PRN PRN Reason: Nausea/Vomiting Pantoprazole Sodium (Protonix Ec Tab) 40 mg PO DAILY [facility] Last Admin: 02/15/18 09:07 Dose: 40 mg Tamsulosin HCl (Flomax) 0.4 mg PO Q24H [facility] Last Admin: 02/14/18 18:14 Dose: 0.4 mg Thiamine HCl (Vitamin B1 Tab) 100 mg PO DAILY [facility] Last Admin: 02/15/18 09:07 Dose: 100 mg - Labs Labs: 02/15/18 07:42 02/15/18 07:42 - Constitutional Appears: No Acute Distress, Chronically Ill - Head Exam Head Exam: ATRAUMATIC, NORMAL INSPECTION - Eye Exam Eye Exam: EOMI, Normal appearance - Neck Exam Neck Exam: Normal Inspection. absent: Tenderness - Respiratory Exam Respiratory Exam: Clear to Ausculation Bilateral, NORMAL BREATHING PATTERN - Cardiovascular Exam Cardiovascular Exam: REGULAR RHYTHM, +S1 - GI/Abdominal Exam GI & Abdominal Exam: Soft. absent: Tenderness - Extremities Exam Extremities Exam: Normal Inspection. absent: Tenderness - Neurological Exam Neurological Exam: Awake, CN II-XII Intact - Skin Skin Exam: Dry, Warm Assessment and Plan (1) Hypokalemia Status: Acute (2) ELISA (acute kidney injury) Status: Acute (3) Alcohol intoxication Status: Acute (4) Hypomagnesemia Status: Acute (5) Leukopenia Status: Acute - Assessment and Plan (Free Text) Plan: Continue IV maldonado Replete mag, kcl follow up chemistries
--- NOTE | 2018-02-15 13:50 | CP.PCM.PN ---
Subjective - Date & Time of Evaluation Date of Evaluation: 02/15/18 Time of Evaluation: 13:46 - Subjective Subjective: Progress Note for Dr. Sanchez Patient seen and examined at bedside. Patient admits to periumbilical pain. Patient admits to diarrhea. Patient denies fever, chills, nausea, vomiting, chest pain. Objective - Vital Signs/Intake and Output Vital Signs (last 24 hours): Temp Pulse Resp BP Pulse Ox 98.2 F 72 20 130/80 100 02/15/18 08:00 02/15/18 08:00 02/15/18 08:00 02/15/18 08:00 02/15/18 08:00 Intake and Output: 02/15/18 02/15/18 06:59 18:59 Intake Total 2049 Balance 2049 - Medications Medications: Current Medications Acetaminophen (Tylenol 325mg Tab) 650 mg PO Q6 PRN PRN Reason: Fever >100.4 F Folic Acid (Folic Acid) 1 mg PO DAILY [facility] Last Admin: 02/15/18 09:07 Dose: 1 mg Sodium Chloride (Sodium Chloride 0.9%) 1,000 mls @ 100 mls/hr IV .Q10H [facility] Last Admin: 02/15/18 06:20 Dose: Not Given Lorazepam (Ativan) 1 mg IVP Q4H PRN PRN Reason: Symptoms of alcohol withdrawl Last Admin: 02/14/18 19:15 Dose: 1 mg Magnesium Sulfate/Dextrose (Magnesium Sulfate 1 Gm/100 Ml D5w) 1 gm IVPB Q1H [facility] Stop: 02/15/18 17:01 Morphine Sulfate (Morphine) 1 mg IVP Q4 PRN PRN Reason: Pain, severe (8-10) Last Admin: 02/15/18 12:14 Dose: 1 mg Multivitamins (Hexavitamin) 1 tab PO DAILY [facility] Last Admin: 02/15/18 09:07 Dose: 1 tab Ondansetron HCl (Zofran Inj) 4 mg IVP DAILY@ONCE PRN PRN Reason: Nausea/Vomiting Pantoprazole Sodium (Protonix Ec Tab) 40 mg PO DAILY [facility] Last Admin: 02/15/18 09:07 Dose: 40 mg Tamsulosin HCl (Flomax) 0.4 mg PO Q24H [facility] Last Admin: 02/14/18 18:14 Dose: 0.4 mg Thiamine HCl (Vitamin B1 Tab) 100 mg PO DAILY [facility] Last Admin: 02/15/18 09:07 Dose: 100 mg - Labs Labs: 02/15/18 07:42 02/15/18 07:42 - Additional Findings Additional findings: - Constitutional Appears: Non-toxic, No Acute Distress - Head Exam Head Exam: ATRAUMATIC, NORMOCEPHALIC - Eye Exam Eye Exam: EOMI, Normal appearance, PERRL - ENT Exam ENT Exam: Mucous Membranes Dry - no tongue fasciculations - Neck Exam Neck exam: Positive for: Normal Inspection - Respiratory Exam Respiratory Exam: Clear to Auscultation Bilateral, NORMAL BREATHING PATTERN. absent: Rhonchi, Wheezes, Respiratory Distress - Cardiovascular Exam Cardiovascular Exam: REGULAR RHYTHM, +S1, +S2 - GI/Abdominal Exam GI & Abdominal Exam: Soft, Tenderness (periumbilical tenderness). absent: Hernia, Mass, rigidity - Rectal Exam Rectal Exam: prostate enlargement (no nodules) - Extremities Exam Extremities exam: Positive for: normal inspection, pedal pulses present. Negative for: pedal edema, tenderness - no tremors - Back Exam Back exam: NORMAL INSPECTION - Neurological Exam Neurological exam: Alert, CN II-XII Intact, Oriented x3 - Psychiatric Exam Psychiatric exam: Normal Affect, Normal Mood - Skin Skin Exam: Dry, Warm Assessment and Plan - Assessment and Plan (Free Text) Assessment: Acute Renal Failure -prolong nausea, vomiting vs infectious vs autoimmune etiologies -UA shows >20 hyaline casts -Renal u/s: Normal renal US -Urine Tox negative Nephrology consulted, Dr. Cochran help appreciated - Etiology: ELISA likely volume depletion, but cannot r/o CKD -Avoid nephrotoxic agents - CPK 326 -IVF NS@ 100ml/hr Gastroenteritis -CT abdomen (02/12/18): No acute abnormality. Chronic pancreatitis. Fatty infiltration of the liver -Abd Obstruction series shows normal bowel gas pattern. No pulmonary infiltrate -Liquid diet -NS @ 125cc/hr -HIV negative -stool culture -o &p - c diff - Lipase 212 Zofran prn Morphine 1mg q6 prn Tylenol prn EtOH abuse disorder Denies prior DTs, 4-5 days since last drink CIWA protocol PO folic acid/MV/thiamine Ativan Q4H PRN for symptoms Transaminitis AST/ALT 202/55 on admission - continues to improve 102/32 today Hx of HTN -well controlled -Hold med since borderline hypotensive Pancytopenia Etiology: ? long-term alcoholism, MCV WNL WBC 2.8 HIV negative BPH Start Flomax 0.4mg PO Daily Abnormal UA UA (02/13/18): Hyaline casts, 1+ blood, 1+ protein, 1+ LE, Sq ep >5 -will repeat after hydration CAD -ASA -Hold beta kinjal as of now Electrolyte abnormality Mg 1.0 today, repleted Prophylactic measures -Lovenox -Protonix
[2018-02-15 17:24] LABS: ALB/GLOB RATIO 1.2 (1.0-2.1); ALBUMIN 3.7 g/dL (3.5-5.0); ALT/SGPT 53 U/L (21-72); AST/SGOT 166 U/L (17-59); BLOOD UREA NITROGEN 7 mg/dL (9-20); CALCIUM 8.3 mg/dl (8.6-10.4); GFR AFRICAN-AMERICAN > 60; GFR NON-AFRICAN AMERICAN > 60
[2018-02-15 20:22] LABS: BASO % 0.5 % (0.0-2.0); EOS # 0.1 K/uL (0.0-0.7); EOS % 2.2 % (0.0-4.0); HEMOGLOBIN 8.6 g/dL (12.0-18.0); LYMPH # 0.5 K/uL (1.0-4.3); LYMPH % 14.7 % (20.0-40.0); MEAN CELL VOLUME 94.5 fL (80.0-94.0); MEAN CORPUSCULAR HEMOGLOBIN 32.2 pg (27.0-31.0); MEAN PLATELET VOLUME 9.3 fL (7.2-11.7); MONO # 0.6 K/uL (0.0-0.8); MONO % 19.8 % (0.0-10.0); NEUT % 62.8 % (50.0-75.0); NRBC % 0.1 % (0.0-2.0); RBC 2.67 Mil/uL (4.40-5.90); RED CELL DISTRIBUTION WIDTH 15.6 % (11.5-14.5); WHITE BLOOD COUNT 3.2 K/uL (4.8-10.8)
[2018-02-16] MEDS: Morphine 4 MG/ML VIAL IVP PRN ×3 (05:33→13:40)
[2018-02-16] MEDS: Sodium Chloride 0.9% 1,000 ML IV SCH ×2 (05:35→12:29)
[2018-02-16 06:49] LABS: EOS # 0.1 K/uL (0.0-0.7); EOS % 3.5 % (0.0-4.0); HEMOGLOBIN 7.8 g/dL (12.0-18.0); LYMPH # 0.5 K/uL (1.0-4.3); LYMPH % 20.5 % (20.0-40.0); MEAN CELL VOLUME 94.2 fL (80.0-94.0); MEAN CORPUSCULAR HEMOGLOBIN 32.2 pg (27.0-31.0); MEAN CORPUSCULAR HGB CONC 34.2 g/dL (33.0-37.0); MEAN PLATELET VOLUME 9.2 fL (7.2-11.7); MONO # 0.6 K/uL (0.0-0.8); MONO % 22.3 % (0.0-10.0); NEUT # 1.3 K/uL (1.8-7.0); NEUT % 52.7 % (50.0-75.0); NRBC % 0.1 % (0.0-2.0); PLATELET COUNT 114 K/uL (130-400); RBC 2.43 Mil/uL (4.40-5.90); RED CELL DISTRIBUTION WIDTH 15.3 % (11.5-14.5); WHITE BLOOD COUNT 2.5 K/uL (4.8-10.8)
--- NOTE | 2018-02-16 06:53 | CP.PCM.PN ---
Objective - Vital Signs/Intake and Output Vital Signs (last 24 hours): Temp Pulse Resp BP Pulse Ox 98.2 F 73 20 145/91 H 100 02/16/18 00:00 02/16/18 00:00 02/16/18 00:00 02/16/18 00:00 02/16/18 00:00 Intake and Output: 02/15/18 02/16/18 18:59 06:59 Intake Total 1300 950 Output Total 402 Balance 1300 548 - Medications Medications: Current Medications Acetaminophen (Tylenol 325mg Tab) 650 mg PO Q6 PRN PRN Reason: Fever >100.4 F Folic Acid (Folic Acid) 1 mg PO DAILY [facility] Last Admin: 02/15/18 09:07 Dose: 1 mg Sodium Chloride (Sodium Chloride 0.9%) 1,000 mls @ 100 mls/hr IV .Q10H [facility] Last Admin: 02/16/18 05:35 Dose: 100 mls/hr Lorazepam (Ativan) 1 mg IVP Q4H PRN PRN Reason: Symptoms of alcohol withdrawl Last Admin: 02/14/18 19:15 Dose: 1 mg Morphine Sulfate (Morphine) 1 mg IVP Q4 PRN PRN Reason: Pain, severe (8-10) Last Admin: 02/16/18 05:33 Dose: 1 mg Multivitamins (Hexavitamin) 1 tab PO DAILY [facility] Last Admin: 02/15/18 09:07 Dose: 1 tab Ondansetron HCl (Zofran Inj) 4 mg IVP DAILY@ONCE PRN PRN Reason: Nausea/Vomiting Pantoprazole Sodium (Protonix Ec Tab) 40 mg PO DAILY [facility] Last Admin: 02/15/18 09:07 Dose: 40 mg Tamsulosin HCl (Flomax) 0.4 mg PO Q24H [facility] Last Admin: 02/15/18 17:32 Dose: 0.4 mg Thiamine HCl (Vitamin B1 Tab) 100 mg PO DAILY [facility] Last Admin: 02/15/18 09:07 Dose: 100 mg - Labs Labs: 02/16/18 06:30 02/15/18 16:52 - Additional Findings Additional findings: - Constitutional Appears: Non-toxic, No Acute Distress - Head Exam Head Exam: ATRAUMATIC, NORMOCEPHALIC - Eye Exam Eye Exam: EOMI, Normal appearance, PERRL - ENT Exam ENT Exam: Mucous Membranes Dry - no tongue fasciculations - Neck Exam Neck exam: Positive for: Normal Inspection - Respiratory Exam Respiratory Exam: Clear to Auscultation Bilateral, NORMAL BREATHING PATTERN. absent: Rhonchi, Wheezes, Respiratory Distress - Cardiovascular Exam Cardiovascular Exam: REGULAR RHYTHM, +S1, +S2 - GI/Abdominal Exam GI & Abdominal Exam: Soft, Tenderness (periumbilical tenderness). absent: Hernia, Mass, rigidity - Rectal Exam Rectal Exam: prostate enlargement (no nodules) - Extremities Exam Extremities exam: Positive for: normal inspection, pedal pulses present. Negative for: pedal edema, tenderness - no tremors - Back Exam Back exam: NORMAL INSPECTION - Neurological Exam Neurological exam: Alert, CN II-XII Intact, Oriented x3 - Psychiatric Exam Psychiatric exam: Normal Affect, Normal Mood - Skin Skin Exam: Dry, Warm Assessment and Plan - Assessment and Plan (Free Text) Assessment: Acute Renal Failure -prolong nausea, vomiting vs infectious vs autoimmune etiologies -UA shows >20 hyaline casts -Renal u/s: Normal renal US -Urine Tox negative Nephrology consulted, Dr. Cochran help appreciated - Etiology: ELISA likely volume depletion, but cannot r/o CKD -Avoid nephrotoxic agents - CPK 326 -IVF NS@ 100ml/hr Gastroenteritis -CT abdomen (02/12/18): No acute abnormality. Chronic pancreatitis. Fatty infiltration of the liver -Abd Obstruction series shows normal bowel gas pattern. No pulmonary infiltrate -Liquid diet -NS @ 125cc/hr -HIV negative -stool culture -o &p, negative - c diff, negative - Lipase 212 Zofran prn Morphine 1mg q6 prn Tylenol prn EtOH abuse disorder Denies prior DTs, 4-5 days since last drink CIWA protocol PO folic acid/MV/thiamine Ativan Q4H PRN for symptoms Transaminitis AST/ALT 202/55 on admission - continues to improve 102/32 today Hx of HTN -well controlled -Hold med since borderline hypotensive Pancytopenia Etiology: ? long-term alcoholism, MCV WNL WBC 2.8 HIV negative BPH Start Flomax 0.4mg PO Daily Abnormal UA UA (02/13/18): Hyaline casts, 1+ blood, 1+ protein, 1+ LE, Sq ep >5 -will repeat after hydration CAD -ASA -Hold beta kinjal as of now Electrolyte abnormality, resolved Hypomagnesemia- resolved Prophylactic measures -Lovenox -Protonix
[2018-02-16 08:41] VITALS: BP 148/85; PULSE 64; TEMP 98.3; O2SAT 98
[2018-02-16 09:00] LABS: EOSINOPHIL 1 % (0-4); LYMPHOCYTE 12 % (20-40); MONOCYTE 14 % (0-10); NEUTROPHIL 73 % (50-75); TOTAL CELLS COUNTED 100
[2018-02-16 09:02] LABS: ANISOCYTOSIS SLIGHT; PLATELET ESTIMATE SLIGHTLY DECREASED (NORMAL)
[2018-02-16] MEDS: Pantoprazole 40 mg EC Tab PO SCH (09:49)
[2018-02-16] MEDS: Multiple Vitamins Tab PO SCH (09:50)
--- NOTE | 2018-02-16 10:25 | CP.PCM.PN ---
Subjective - Date & Time of Evaluation Date of Evaluation: 02/16/18 Time of Evaluation: 10:23 - Subjective Subjective: seen and examined remains on iv fluids c/o diarrhea, improved. once since this am denies any cp/sob/dizziness/n/v/rash/fevers/chills/headache/rash Objective - Vital Signs/Intake and Output Vital Signs (last 24 hours): Temp Pulse Resp BP Pulse Ox 98.3 F 64 20 148/85 98 02/16/18 08:00 02/16/18 08:00 02/16/18 08:00 02/16/18 08:00 02/16/18 08:00 Intake and Output: 02/16/18 02/16/18 06:59 18:59 Intake Total 950 Output Total 402 Balance 548 - Medications Medications: Current Medications Acetaminophen (Tylenol 325mg Tab) 650 mg PO Q6 PRN PRN Reason: Fever >100.4 F Folic Acid (Folic Acid) 1 mg PO DAILY [facility] Last Admin: 02/16/18 09:49 Dose: 1 mg Sodium Chloride (Sodium Chloride 0.9%) 1,000 mls @ 100 mls/hr IV .Q10H [facility] Last Admin: 02/16/18 05:35 Dose: 100 mls/hr Lorazepam (Ativan) 1 mg IVP Q4H PRN PRN Reason: Symptoms of alcohol withdrawl Last Admin: 02/14/18 19:15 Dose: 1 mg Morphine Sulfate (Morphine) 1 mg IVP Q4 PRN PRN Reason: Pain, severe (8-10) Last Admin: 02/16/18 09:40 Dose: 1 mg Multivitamins (Hexavitamin) 1 tab PO DAILY [facility] Last Admin: 02/16/18 09:50 Dose: 1 tab Ondansetron HCl (Zofran Inj) 4 mg IVP DAILY@ONCE PRN PRN Reason: Nausea/Vomiting Pantoprazole Sodium (Protonix Ec Tab) 40 mg PO DAILY [facility] Last Admin: 02/16/18 09:49 Dose: 40 mg Tamsulosin HCl (Flomax) 0.4 mg PO Q24H [facility] Last Admin: 02/15/18 17:32 Dose: 0.4 mg Thiamine HCl (Vitamin B1 Tab) 100 mg PO DAILY [facility] Last Admin: 02/16/18 09:52 Dose: 100 mg - Labs Labs: 02/16/18 06:30 02/15/18 16:52 - Constitutional Appears: Non-toxic, No Acute Distress, Chronically Ill - Head Exam Head Exam: NORMAL INSPECTION, NORMOCEPHALIC - Eye Exam Eye Exam: Normal appearance, PERRL - ENT Exam ENT Exam: Mucous Membranes Moist, Normal Exam - Neck Exam Neck Exam: Full ROM, Normal Inspection - Respiratory Exam Respiratory Exam: Clear to Ausculation Bilateral, NORMAL BREATHING PATTERN - Cardiovascular Exam Cardiovascular Exam: REGULAR RHYTHM, RRR - GI/Abdominal Exam GI & Abdominal Exam: Distended, Soft, Normal Bowel Sounds - Extremities Exam Extremities Exam: Full ROM, Normal Inspection - Neurological Exam Neurological Exam: Alert, Awake, Oriented x3 - Psychiatric Exam Psychiatric exam: Normal Affect, Normal Mood - Skin Skin Exam: Dry, Intact Assessment and Plan (1) Acute renal failure Status: Acute (2) Hypokalemia Status: Acute (3) Hypomagnesemia Status: Acute (4) Vomiting Status: Acute (5) ELISA (acute kidney injury) Status: Acute - Assessment and Plan (Free Text) Assessment: resolved elisa/volume depletion eletrolytes improved may lower iv fluids if adequate po intake daily chems - supplement lytes
[2018-02-16 13:19] LABS: ALB/GLOB RATIO 1.2 (1.0-2.1); ALBUMIN 3.4 g/dL (3.5-5.0); ALT/SGPT 49 U/L (21-72); AST/SGOT 131 U/L (17-59); BLOOD UREA NITROGEN 5 mg/dL (9-20); CALCIUM 8.1 mg/dl (8.6-10.4); GFR AFRICAN-AMERICAN > 60; GFR NON-AFRICAN AMERICAN > 60
--- NOTE | 2018-02-16 16:28 | CP.PCM.DIS ---
Provider - Provider Date of Admission: 02/12/18 16:25 Attending physician: Brian Sanchez Jr, MD Consults: Dr. Cochran Time Spent in preparation of Discharge (in minutes): 35 Hospital Course - Lab Results Lab Results: Micro Results 02/14/18 06:43 Stool Stool Culture - Final NO SALMONELLA, SHIGELLA OR CAMPYLOBACTER ISOLATED. 02/14/18 06:43 Stool Ova and Parasite Concentrate Exam - Final Most Recent Lab Values WBC 2.5 K/uL (4.8-10.8) L 02/16/18 06:30 RBC 2.43 Mil/uL (4.40-5.90) L 02/16/18 06:30 Hgb 7.8 g/dL (12.0-18.0) L 02/16/18 06:30 Hct 22.9 % (35.0-51.0) L 02/16/18 06:30 MCV 94.2 fL (80.0-94.0) H 02/16/18 06:30 MCH 32.2 pg (27.0-31.0) H 02/16/18 06:30 MCHC 34.2 g/dL (33.0-37.0) 02/16/18 06:30 RDW 15.3 % (11.5-14.5) H 02/16/18 06:30 Plt Count 114 K/uL (130-400) L 02/16/18 06:30 MPV 9.2 fL (7.2-11.7) 02/16/18 06:30 Neut % (Auto) 52.7 % (50.0-75.0) 02/16/18 06:30 Lymph % (Auto) 20.5 % (20.0-40.0) 02/16/18 06:30 [place] % (Auto) 22.3 % (0.0-10.0) H 02/16/18 06:30 Eos % (Auto) 3.5 % (0.0-4.0) 02/16/18 06:30 Baso % (Auto) 1.0 % (0.0-2.0) 02/16/18 06:30 Neut # (Auto) 1.3 K/uL (1.8-7.0) L 02/16/18 06:30 Lymph # (Auto) 0.5 K/uL (1.0-4.3) L 02/16/18 06:30 [place] # (Auto) 0.6 K/uL (0.0-0.8) 02/16/18 06:30 Eos # (Auto) 0.1 K/uL (0.0-0.7) 02/16/18 06:30 Baso # (Auto) 0.0 K/uL (0.0-0.2) 02/16/18 06:30 Neutrophils % (Manual) 73 % (50-75) 02/16/18 06:30 Lymphocytes % (Manual) 12 % (20-40) L 02/16/18 06:30 Monocytes % (Manual) 14 % (0-10) H 02/16/18 06:30 Eosinophils % (Manual) 1 % (0-4) 02/16/18 06:30 Differential Comment 02/15/18 07:42 Platelet Estimate Slightly decreased (NORMAL) L 02/16/18 06:30 Anisocytosis (manual) Slight 02/16/18 06:30 Sodium 137 mmol/L (132-148) 02/16/18 12:52 Potassium 3.8 mmol/L (3.6-5.2) 02/16/18 12:52 Chloride 102 mmol/L (98-107) 02/16/18 12:52 Carbon Dioxide 26 mmol/L (22-30) 02/16/18 12:52 Anion Gap 12 (10-20) 02/16/18 12:52 BUN 5 mg/dL (9-20) L 02/16/18 12:52 Creatinine 1.0 mg/dL (0.8-1.5) 02/16/18 12:52 Est GFR ( Amer) > 60 02/16/18 12:52 Est GFR (Non-Af Amer) > 60 02/16/18 12:52 Random Glucose 90 mg/dL (75-110) 02/16/18 12:52 Hemoglobin A1c 5.8 % (4.2-6.5) 02/12/18 18:58 Lactic Acid 2.0 mmol/L (0.7-2.1) 02/12/18 13:10 Calcium 8.1 mg/dl (8.6-10.4) L 02/16/18 12:52 Phosphorus 2.1 mg/dL (2.5-4.5) L 02/16/18 12:52 Magnesium 2.0 mg/dL (1.6-2.3) 02/16/18 12:52 Total Bilirubin 0.6 mg/dL (0.2-1.3) 02/16/18 12:52 AST 131 U/L (17-59) H D 02/16/18 12:52 ALT 49 U/L (21-72) 02/16/18 12:52 Alkaline Phosphatase 54 U/L (38-126) 02/16/18 12:52 Total Creatine Kinase 326 U/L (55-170) H 02/12/18 18:58 Total Protein 6.3 g/dL (6.3-8.3) 02/16/18 12:52 Albumin 3.4 g/dL (3.5-5.0) L 02/16/18 12:52 Globulin 2.9 gm/dL (2.2-3.9) 02/16/18 12:52 Albumin/Globulin Ratio 1.2 (1.0-2.1) 02/16/18 12:52 Lipase 212 U/L (23-300) 02/12/18 13:10 Angiotensin Convert Enz 18 U/L (9-67) 02/14/18 08:05 Urine Color Yellow (YELLOW) 02/12/18 13:10 Urine Clarity Hazy (Clear) 02/12/18 13:10 Urine pH 6.0 (5.0-8.0) 02/12/18 13:10 Ur Specific [place] 1.015 (1.003-1.030) 02/12/18 13:10 Urine Protein 1+ mg/dL (NEGATIVE) H 02/12/18 13:10 Urine Glucose (UA) Normal mg/dL (Normal) 02/12/18 13:10 Urine Ketones Trace mg/dL (NEGATIVE) 02/12/18 13:10 Urine Blood 1+ (NEGATIVE) H 02/12/18 13:10 Urine Nitrate Negative (NEGATIVE) 02/12/18 13:10 Urine Bilirubin Negative (NEGATIVE) 02/12/18 13:10 Urine Urobilinogen 4.0 mg/dL (0.2-1.0) 02/12/18 13:10 Ur Leukocyte Esterase 1+ [place]/uL (Negative) H 02/12/18 13:10 Urine WBC (Auto) 11 /hpf (0-5) H 02/12/18 13:10 Urine RBC (Auto) 12 /hpf (0-3) H 02/12/18 13:10 Ur Squamous Epith Cells 7 /hpf (0-5) H 02/12/18 13:10 Hyaline Casts >20 /lpf (0-2) H 02/12/18 13:10 Urine Collection Time 24 HRS 02/14/18 08:07 Urine Total Volume 1400 mL 02/14/18 08:07 Ur Creatinine 24 Hour 1499.4 mg/24hr (800-2800) 02/14/18 07:24 Ur Protein 24 Hr Calc 280.0 mg/24hr (42-225) H 02/14/18 08:07 Stool Occult Blood Positive (NEGATIVE) H 02/15/18 05:17 Stool Leukocytes, Qual Negative (NEGATIVE) 02/14/18 22:14 Urine Opiates Screen Negative (NEGATIVE) 02/12/18 13:13 Urine Methadone Screen Negative (NEGATIVE) 02/12/18 13:13 Ur Barbiturates Screen Negative (NEGATIVE) 02/12/18 13:13 Ur Phencyclidine Scrn Negative (NEGATIVE) 02/12/18 13:13 Ur Amphetamines Screen Negative (NEGATIVE) 02/12/18 13:13 U Benzodiazepines Scrn Negative (NEGATIVE) 02/12/18 13:13 U Oth Cocaine Metabols Negative (NEGATIVE) 02/12/18 13:13 U Cannabinoids Screen Negative (NEGATIVE) 02/12/18 13:13 Alcohol, Quantitative < 10 mg/dl (0-10) 02/12/18 18:58 MEGHA 6 Profile Negative (NEGATIVE) 02/14/18 08:05 C. difficile Ag & Toxin Negative (NEGATIVE) 02/13/18 17:41 HIV 1&2 Antibody Screen Negative (NEGATIVE) 02/12/18 18:58 - Hospital Course Hospital Course: HPI Patient is a 62M with PMH gastritis, peptic ulcer, pancreatitis, HTN, CHF, peripheral edema, anemia, anxiety, and depression who presented to ED c/o epigastric pain x3 days. Pain had sudden onset, crampy, no radiation, worse with food. Patient came to ED because symptoms became suddenly worse. Pain was associated with nausea, numerous episodes of clear vomitvomiting, and unable to keep down food during this time. Denied diarrhea, fever, chills, back pain, dysuria, hematuria. Last alcohol intake was [address] abd pelvis and abdominal series showed no acute obstruction. Patient strated on liquid diet, tylenol and morphine 1mg q6h prn pain control, zofran prn nausea. Patient presented with acute renal failure. BUN/CR 40/2.6, UA >20 hyaline casts. IVF NS started. Renal ultrasound was unremarkable. BP stable, hypertensive medications held due to borderline hypothension. Started on ASA for CAD, beta blockers held. Patient started on GI and DVT prophylaxis. Patient admitted to chronic alcohol use. Tolerating liquid diet and advanced to solid foods. Started on ativan q4h prn. Urine tox negative. HIV testing for pancytopenia negative. Transaminitis on admission closing. CXR ordered post rapid fluid bolus and showed no active disease. Diarrhea during hospitalization, improved 02/16 Labs HIV 1&2 ab screen negative 02/12/18. C diff Ag and toxin negative 02/13/18. MEGHA 6 profile negative 02/14/18. Stool leukocytes negative 02/14/18. Stool occult blood positive on 02/15/18. Stool culture negative for salmonella, shigella, and campylobacter 02/14/18. Stool ova and parasite negative 02/14/18. Imaging Abd obstructive series 02/12/18 showed normal gas pattern without obstruction. Abd/pelvis CT 02/12/18 showed no obstruction, chronic pancreatitis with fatty infiltration of the liver. Renal ultrasound 02/12/18 was unremarkable. CXR 02/14 showed no active disease. Consults Nephrology consult: Dr. Cochran. ELISA likely due to volume depletion from GI stress. Replace potassium and magnesium for hypokalemia. ELISA resolved, good urine output, K and Mg levels repleted. Patient discharged: with instructions to hydrate well and advance diet as tolerated - Date & Time of H&P Date of H&P: 02/16/18 Time of H&P: 16:28 Discharge Exam - Additional Findings Additional findings: Constitutional Appears: Non-toxic, No Acute Distress - Head Exam Head Exam: ATRAUMATIC, NORMOCEPHALIC - Eye Exam Eye Exam: EOMI, Normal appearance, PERRL - ENT Exam ENT Exam: Mucous Membranes Dry - no tongue fasciculations - Neck Exam Neck exam: Positive for: Normal Inspection - Respiratory Exam Respiratory Exam: Clear to Auscultation Bilateral, NORMAL BREATHING PATTERN. absent: Rhonchi, Wheezes, Respiratory Distress - Cardiovascular Exam Cardiovascular Exam: REGULAR RHYTHM, +S1, +S2 - GI/Abdominal Exam GI & Abdominal Exam: Soft, Tenderness (periumbilical tenderness). absent: Hernia, Mass, rigidity - Rectal Exam Rectal Exam: prostate enlargement (no nodules) - Extremities Exam Extremities exam: Positive for: normal inspection, pedal pulses present. Negative for: pedal edema, tenderness - no tremors - Back Exam Back exam: NORMAL INSPECTION - Neurological Exam Neurological exam: Alert, CN II-XII Intact, Oriented x3 - Psychiatric Exam Psychiatric exam: Normal Affect, Normal Mood - Skin Skin Exam: Dry, Warm Discharge Plan - Follow Up Plan Condition: FAIR Disposition: HOME/ ROUTINE Instructions: Heart Failure, Adult (DC), Hypokalemia (DC) Additional Instructions: follow up with Dr. Sanchez to establish care within one week continue hydrating and repleting electrolytes advance diet as tolerated. return to Emergency room if weak, fatigue, continued diarrhea, chest pain, palpitations Referrals: Brian Sanchez Jr., MD [Medical Doctor] -
== END 2018-02-16 15:41 | disposition home or self-care (01) | DRG 683 ==
LOC: C.ER 11:07 → C.9E 16:25 → C.3T 18:57
PROVIDERS: ADMIT Internal Medicine; ATTEND Internal Medicine
DX: N17.9 Acute kidney failure, unspecified (principal); K86.1 Other chronic pancreatitis; I13.0 Hypertensive heart and chronic kidney disease with heart failure and stage 1 through stage 4 chronic kidney disease, or unspecified chronic kidney disease; D61.818 Other pancytopenia; K52.9 Noninfective gastroenteritis and colitis, unspecified; E87.6 Hypokalemia; I50.9 Heart failure, unspecified; E86.0 Dehydration; K76.0 Fatty (change of) liver, not elsewhere classified; I25.10 Atherosclerotic heart disease of native coronary artery without angina pectoris; E83.42 Hypomagnesemia; N18.9 Chronic kidney disease, unspecified; Y90.0 Blood alcohol level of less than 20 mg/100 ml; F10.129 Alcohol abuse with intoxication, unspecified; Z87.891 Personal history of nicotine dependence

== ENCOUNTER 2018-02-19 17:37 | Inpatient (IN) | payer MEDICAID, OTHER ==
[2018-02-19 17:38] VITALS: BMI 24.8
--- NOTE | 2018-02-19 18:19 | C.PDOC ---
History Of Present Illness 62 y/o male with PMHx significant for pacemaker, CHF, s/p defibrillator, presents to the ED via EMS following report of syncopal episode. Patient states that his defibrillator went off at home. He also admits to drinking alcohol today. . Of note, patient has been seen here many times. Patient otherwise denies any fevers, chest pain, SOB, dizziness, nausea, or headaches. Time Seen by Provider: 02/19/18 17:44 Chief Complaint (Nursing): Substance Abuse History Per: Patient History/Exam Limitations: intoxication Onset/Duration Of Symptoms: Mins Current Symptoms Are (Timing): Better Past Medical History Reviewed: Historical Data, Nursing Documentation, Vital Signs Vital Signs: Last Vital Signs Temp 97.3 F L 02/19/18 21:30 Pulse 97 H 02/19/18 21:30 Resp 20 02/19/18 21:30 BP 122/76 02/19/18 21:30 Pulse Ox 96 02/19/18 21:30 - Medical History PMH: Anemia, Anxiety, Arthritis, CHF, Depression, Gastritis, Gastrointestinal Ulcer (PEPTIC), HTN, Pancreatitis, Peripheral Edema Denies: HIV, Kidney Stones, Chronic Kidney Disease, Seizures, Sexually Transmitted Disease Surgical History: - [facility] Procedures ALCOHOL DETOXIFICATION (05/03/13) DETOXIFICATION SERVICES FOR SUBSTANCE ABUSE TREATMENT (07/13/17) EXCISION OF DESCENDING COLON, ENDO, DIAGN (03/14/16) EXCISION OF STOMACH, ENDO, DIAGN (11/26/16) EXTIRPATION OF MATTER FROM LARGE INTESTINE, ENDO (01/09/17) FLUOROSCOPY OF LEFT HEART USING LOW OSMOLAR CONTRAST (07/13/17) FLUOROSCOPY OF MULT COR ART USING L OSM CONTRAST (07/13/17) GROUP PSYCHOTHERAPY (01/24/16) INSERT OF MONITOR DEV INTO CHEST SUBCU/FASCIA, OPEN APPROACH (12/18/16) MEASURE OF ARTERIAL PRESSURE, PERIPHERAL, PROFESSOR OF ENGLISH APPROACH (12/18/16) MEASURE OF CARDIAC SAMPL & PRESSURE, L HEART, PERC APPROACH (07/13/17) MEASUREMENT OF CARDIAC RHYTHM, EXTERNAL APPROACH (12/18/16) TRANSFUSE NONAUT RED BLOOD CELLS IN PERIPH ART, PERC (01/09/17) TRANSFUSE NONAUT RED BLOOD CELLS IN PERIPH VEIN, PERC (07/28/16) Family History: States: Unknown Family Hx - Social History Hx Tobacco Use: No (quit 2 months now) Hx Alcohol Use: Yes Hx Substance Use: No - Immunization History Hx Tetanus Toxoid Vaccination: No Hx Influenza Vaccination: No Hx Pneumococcal Vaccination: No Review Of Systems Except As Marked, All Systems Reviewed And Found Negative. Constitutional: Negative for: Fever Cardiovascular: Negative for: Chest Pain Gastrointestinal: Negative for: Nausea Neurological: Positive for: Other (syncopal episode). Negative for: Headache, Dizziness Psych: Positive for: Other (alcohol intoxication) Physical Exam - Physical Exam Appears: No Acute Distress, Other (Alcohol on breath) Skin: Normal Color, Warm, Dry Head: Atraumatic, Normacephalic Eye(s): bilateral: Normal Inspection, PERRL, EOMI Nose: Normal Oral Mucosa: Moist Neck: Normal ROM, Supple Chest: Symmetrical, Other (Pacemaker in place) Cardiovascular: Rhythm Regular, No Murmur Respiratory: Normal Breath Sounds, No Accessory Muscle Use, No Rales, No Rhonchi , No Wheezing Gastrointestinal/Abdominal: Soft, No Tenderness, No Distention Extremity: Bilateral: Atraumatic, Normal Color And Temperature, Normal ROM Pulses: Left Dorsalis Pedis: Normal, Right Dorsalis Pedis: Normal Neurological/Psych: Oriented x3, Normal Speech ED Course And Treatment - Laboratory Results Result Diagrams: 02/19/18 18:09 02/19/18 18:09 O2 Sat by Pulse Oximetry: 99 (RA) Pulse Ox Interpretation: Normal Medical Decision Making Medical Decision Making: Time: 18:02 Initial Plan: * EKG * Alcohol serum * Lipase * Troponin I * CMP * CBC * PTT * Prothrombin time * Chest x-ray Discussed case with Dr. Dillard, patients primary gas maker helper, he requests admission. ekg non sepcif changes. pt intially reports defib went off, later states life vest went off "which he left at home". Disposition - Disposition Disposition: HOSPITALIZED Disposition Time: 23:39 Condition: FAIR - Clinical Impression Clinical Impression: Syncope, Alcohol abuse - Scribe Statement The provider has reviewed the documentation as recorded by the Ava Trammell Provider Attestation: All medical record entries made by the Ava were at my direction and personally dictated by me. I have reviewed the chart and agree that the record accurately reflects my personal performance of the history, physical exam, medical decision making, and the department course for this patient. I have also personally directed, reviewed, and agree with the discharge instructions and disposition. Decision To Admit - Pt Status Changed To: Hospital Disposition Of: Observation - . Bed Request Type: Telemetry Admitting Physician: Familia Rosen Patient Diagnosis: Syncope, Alcohol abuse
[2018-02-19 18:21] LABS: BASO % 1.4 % (0.0-2.0); EOS # 0.1 K/uL (0.0-0.7); EOS % 4.1 % (0.0-4.0); HEMOGLOBIN 7.4 g/dL (12.0-18.0); LYMPH # 1.3 K/uL (1.0-4.3); LYMPH % 41.4 % (20.0-40.0); MEAN CELL VOLUME 93.5 fL (80.0-94.0); MEAN CORPUSCULAR HEMOGLOBIN 32.2 pg (27.0-31.0); MEAN CORPUSCULAR HGB CONC 34.5 g/dL (33.0-37.0); MEAN PLATELET VOLUME 7.8 fL (7.2-11.7); MONO # 0.7 K/uL (0.0-0.8); MONO % 22.2 % (0.0-10.0); NEUT % 30.9 % (50.0-75.0); NRBC % 0.3 % (0.0-2.0); PLATELET COUNT 239 K/uL (130-400); RBC 2.28 Mil/uL (4.40-5.90); RED CELL DISTRIBUTION WIDTH 16.3 % (11.5-14.5); WHITE BLOOD COUNT 3.1 K/uL (4.8-10.8)
[2018-02-19 18:29] LABS: INR 1.1; PROTHROMBIN TIME 11.5 SECONDS (9.7-12.2)
--- NOTE | 2018-02-19 18:37 | RAD ---
PROCEDURE: CHEST RADIOGRAPH, 1 VIEW HISTORY: chest pain COMPARISON: 02/12/2018. FINDINGS: LUNGS: The lungs are well inflated and clear. PLEURA: No pneumothorax or pleural fluid seen. CARDIOVASCULAR: Normal. OSSEOUS STRUCTURES: No significant abnormalities. VISUALIZED UPPER ABDOMEN: Normal. OTHER FINDINGS: None. IMPRESSION: No active pulmonary disease.
[2018-02-19 18:43] LABS: ALB/GLOB RATIO 1.2 (1.0-2.1); ALBUMIN 4.1 g/dL (3.5-5.0); ALT/SGPT 70 U/L (21-72); AST/SGOT 209 U/L (17-59); BLOOD UREA NITROGEN 19 mg/dL (9-20); CALCIUM 8.8 mg/dl (8.6-10.4); GFR AFRICAN-AMERICAN > 60; GFR NON-AFRICAN AMERICAN 56; LIPASE 262 U/L (23-300)
[2018-02-19 20:01] LABS: ANISOCYTOSIS SLIGHT; BANDS 1 % (0-2); EOSINOPHIL 7 % (0-4); LYMPHOCYTE 41 % (20-40); MONOCYTE 21 % (0-10); NEUTROPHIL 30 % (50-75); POIKILOCYTOSIS SLIGHT; TOTAL CELLS COUNTED 100
[2018-02-19 20:02] LABS: MICROCYTOSIS SLIGHT; STOMATOCYTES SLIGHT
[2018-02-19 20:04] LABS: PLATELET ESTIMATE NORMAL (NORMAL)
[2018-02-20] MEDS ORDERED: Folic Acid 1 MG, Thiamine 100 MG, Multivitamin (MVI) 10 ML in Dextrose 5% In Water 1,00... IV SCH (09:30)
[2018-02-20] MEDS ORDERED: Multivitamin (MVI) 10 ML, Thiamine 100 MG, Folic Acid 1 MG in Sodium Chloride 0.9% 1,00... IV ONE (09:45)
[2018-02-20] MEDS ORDERED: Thiamine 100 mg/ml Inj IV SCH (10:00)
[2018-02-20 14:13] LABS: HEMOGLOBIN 7.7 g/dL (12.0-18.0); MEAN CELL VOLUME 94.3 fL (80.0-94.0); MEAN CORPUSCULAR HEMOGLOBIN 31.7 pg (27.0-31.0); MEAN CORPUSCULAR HGB CONC 33.7 g/dL (33.0-37.0); MEAN PLATELET VOLUME 8.7 fL (7.2-11.7); RBC 2.43 Mil/uL (4.40-5.90); RED CELL DISTRIBUTION WIDTH 16.6 % (11.5-14.5); WHITE BLOOD COUNT 3.2 K/uL (4.8-10.8)
[2018-02-20 14:29] LABS: ALB/GLOB RATIO 1.1 (1.0-2.1); ALBUMIN 3.8 g/dL (3.5-5.0); ALT/SGPT 65 U/L (21-72); AST/SGOT 189 U/L (17-59); BLOOD UREA NITROGEN 19 mg/dL (9-20); CALCIUM 8.5 mg/dl (8.6-10.4); GFR AFRICAN-AMERICAN > 60; GFR NON-AFRICAN AMERICAN > 60
[2018-02-21 07:59] LABS: BASO % 1.1 % (0.0-2.0); EOS # 0.1 K/uL (0.0-0.7); EOS % 3.6 % (0.0-4.0); HEMOGLOBIN 7.7 g/dL (12.0-18.0); LYMPH % 24.8 % (20.0-40.0); MEAN CELL VOLUME 92.9 fL (80.0-94.0); MEAN CORPUSCULAR HEMOGLOBIN 32.6 pg (27.0-31.0); MEAN CORPUSCULAR HGB CONC 35.1 g/dL (33.0-37.0); MEAN PLATELET VOLUME 8.7 fL (7.2-11.7); MONO # 0.6 K/uL (0.0-0.8); MONO % 15.4 % (0.0-10.0); NEUT # 2.3 K/uL (1.8-7.0); NEUT % 55.1 % (50.0-75.0); NRBC % 0.4 % (0.0-2.0); RBC 2.35 Mil/uL (4.40-5.90); RED CELL DISTRIBUTION WIDTH 16.6 % (11.5-14.5); WHITE BLOOD COUNT 4.1 K/uL (4.8-10.8)
--- NOTE | 2018-02-21 23:27 | CP.PCM.CON ---
History of Present Illness - History of Present Illness History of Present Illness: 61 year old male presents for evaluation of a syncopal episode with associated chest pain. He notes that he has history of similar episodes and has an implantable loop recorder. He also notes daily alcohol. Past Medical History PMH: Anemia, Anxiety, Arthritis, CHF, Depression, Gastritis, Gastrointestinal Ulcer (PEPTIC), HTN, Pancreatitis, Peripheral Edema Denies: HIV, Kidney Stones, Chronic Kidney Disease, Seizures, Sexually Transmitted Disease Surgical History: - [facility] ALCOHOL DETOXIFICATION (05/03/13) DETOXIFICATION SERVICES FOR SUBSTANCE ABUSE TREATMENT (05/29/17) EXCISION OF DESCENDING COLON, ENDO, DIAGN (03/14/16) EXCISION OF STOMACH, ENDO, DIAGN (11/26/16) EXTIRPATION OF MATTER FROM LARGE INTESTINE, ENDO (01/09/17) GROUP PSYCHOTHERAPY (01/24/16) INSERT OF MONITOR DEV INTO CHEST SUBCU/FASCIA, OPEN APPROACH (12/18/16) MEASURE OF ARTERIAL PRESSURE, PERIPHERAL, LEAD APPLICATION ARCHITECT APPROACH (12/18/16) MEASUREMENT OF CARDIAC RHYTHM, EXTERNAL APPROACH (12/18/16) TRANSFUSE NONAUT RED BLOOD CELLS IN PERIPH ART, PERC (01/09/17) TRANSFUSE NONAUT RED BLOOD CELLS IN PERIPH VEIN, PERC (07/28/16) Family History: States: Unknown Family Hx - Social History Hx Tobacco Use: No (quit 2 months now) Hx Alcohol Use: Yes (1/2 pint vodka/day) Hx Substance Use: No - Immunization History Hx Tetanus Toxoid Vaccination: No Hx Influenza Vaccination: No Hx Pneumococcal Vaccination: No Review Of Systems Constitutional: Negative for: Fever, Chills Eyes: Negative for: Redness ENT: Negative for: Throat Pain Cardiovascular: Positive for: Chest Pain, Other (Syncope ) Respiratory: Negative for: Shortness of Breath Gastrointestinal: Negative for: Nausea, Vomiting, Abdominal Pain Genitourinary: Negative for: Dysuria Musculoskeletal: Negative for: Back Pain Skin: Negative for: Rash, Lesions Neurological: Negative for: Weakness Psych: Positive for: Other (Alcohol Abuse). Negative for: Anxiety Physical Exam - Physical Exam Appears: Non-toxic, No Acute Distress Skin: Warm, Dry Head: Atraumatic, Normacephalic Eye(s): bilateral: Normal Inspection Oral Mucosa: Moist Neck: Trachea Midline, Supple Chest: Symmetrical, Other (Chest wall with implanted loop recorder) Cardiovascular: Rhythm Regular Respiratory: No Rales, No Rhonchi, No Wheezing Gastrointestinal/Abdominal: Soft, No Tenderness Back: No CVA Tenderness Extremity: Normal ROM Extremity: Bilateral: Atraumatic, No Pedal Edema, Normal Color And Temperature Pulses: Left Dorsalis Pedis: Normal, Right Dorsalis Pedis: Normal Neurological/Psych: Oriented x3, Normal Speech, Normal Cognition, Other (No focal deficits ) Gait: Unsteady Past Patient History - Infectious Disease Hx of Infectious Diseases: None - Past Medical History & Family History Past Medical History?: Yes - Past Social History Smoking Status: Former Smoker - CARDIAC Hx Cardiac Disorders: Yes Hx Congestive Heart Failure: Yes Hx Hypertension: Yes Hx Peripheral Edema: Yes Other/Comment: pacemaker/ [employer]-external defibrillator - PULMONARY Hx Respiratory Disorders: No - NEUROLOGICAL Hx Neurological Disorder: No Hx Seizures: No - HEENT Hx HEENT Problems: Yes Hx Cataracts: Yes ([facility].Cataract Extraction 2013) - RENAL Hx Chronic Kidney Disease: No Hx Kidney Stones: No - ENDOCRINE/METABOLIC Hx Endocrine Disorders: No - HEMATOLOGICAL/ONCOLOGICAL Hx Blood Disorders: Yes Hx Anemia: Yes Hx Human Immunodeficiency Virus (HIV): No - INTEGUMENTARY Hx Dermatological Problems: No - MUSCULOSKELETAL/RHEUMATOLOGICAL Hx Falls: No - GASTROINTESTINAL Hx Gastrointestinal Disorders: Yes Hx Gastritis: Yes Hx Pancreatitis: Yes - GENITOURINARY/GYNECOLOGICAL Hx Genitourinary Disorders: No Hx Sexually Transmitted Disorders: No - PSYCHIATRIC Hx Psychophysiologic Disorder: No Hx Substance Use: No - SURGICAL HISTORY Hx Surgeries: Yes Hx Eye Surgery: Yes ([facility]. Cataract Extraction 2013) Other/Comment: "head injury" hx. "implanted loop recorder" - ANESTHESIA Hx Anesthesia: Yes Hx Anesthesia Reactions: No Hx Malignant Hyperthermia: No Has any member of the family had a problem w/ anesthesia?: No Meds Allergies/Adverse Reactions: Allergies Allergy/AdvReac Type Severity Reaction Status Date / Time Iodinated Contrast- Oral and Allergy Severe SWELLING Verified 02/19/18 17:52 IV Dye shellfish derived Allergy Intermediate RASH Verified 02/19/18 17:52 milk AdvReac Intermediate DIARRHEA Verified 02/19/18 17:52 - Medications Medications: Current Medications Acetaminophen (Tylenol 325mg Tab) 650 mg PO Q6 PRN PRN Reason: Pain, moderate (4-7) Last Admin: 05/27/18 19:57 Dose: 650 mg Aspirin (Aspirin) 325 mg PO QAM [facility] Last Admin: 02/21/18 10:18 Dose: 325 mg Lorazepam (Ativan) 1 mg PO Q6 PRN PRN Reason: Anxiety Ondansetron HCl (Zofran Inj) 4 mg IVP Q8H PRN PRN Reason: Nausea/Vomiting Pantoprazole Sodium (Protonix Inj) 40 mg IVP DAILY [facility] Last Admin: 02/21/18 10:19 Dose: 40 mg Results - Vital Signs Recent Vital Signs: Last Vital Signs Temp 98.8 F 02/21/18 15:05 Pulse 59 L 02/21/18 16:00 Resp 20 02/21/18 15:05 BP 162/93 H 02/21/18 15:05 Pulse Ox 98 02/21/18 15:05 - Labs Result Diagrams: 02/21/18 07:45 02/20/18 14:07 Labs: Laboratory Results - last 24 hr 02/21/18 07:45 WBC 4.1 L RBC 2.35 L Hgb 7.7 L Hct 21.9 L MCV 92.9 MCH 32.6 H MCHC 35.1 RDW 16.6 H Plt Count 251 MPV 8.7 Neut % (Auto) 55.1 Lymph % (Auto) 24.8 Millard % (Auto) 15.4 H Eos % (Auto) 3.6 Baso % (Auto) 1.1 Neut # (Auto) 2.3 Lymph # (Auto) 1.0 Millard # (Auto) 0.6 Eos # (Auto) 0.1 Baso # (Auto) 0.0 Assessment & Plan - Assessment and Plan (Free Text) Assessment: Syncope most likely ETOH related Prior cath: Normal coronaries Systolic CHF Vicente needs AICD ICD consult by Dr. Adair
--- NOTE | 2018-02-22 09:23 | RAD ---
PROCEDURE: Radiographs of the Lumbar Spine. HISTORY: left lumbar pain COMPARISON: No prior. FINDINGS: BONES: Normal lumbar curvature without fracture or spondylolisthesis identified. Incidental limited wedding of the T12 to body is identified however which may indicate fracture of indeterminate age. Multilevel spondylosis is prominent at L3-4 L4-5 as well as L1-2 and T12-L1. Marked disc height loss is noted at its L3-4 L4-5 as well as L1-2 with vacuum disc changes at L3-4. DISC SPACES: As above. OTHER FINDINGS: None. IMPRESSION: Advanced multilevel degenerative disease. Potential minimal anterior wedge compression fracture T12 with no lumbar spinal fracture identified grossly. Age of T12 fracture is indeterminate.
[2018-02-22] MEDS: Enoxaparin 40 mg Syringe SC SCH (09:43)
--- NOTE | 2018-02-22 16:28 | CP.PCM.PN ---
Subjective - Date & Time of Evaluation Date of Evaluation: 02/22/18 Time of Evaluation: 07:30 - Subjective Subjective: Patient seen and evaluated No acute events noted Denies chest pain and dyspnea Chronic systolic CHF Normal coronaries HTN ETOH dependance AICD eval by Dr. Adair pending Objective - Vital Signs/Intake and Output Vital Signs (last 24 hours): Temp Pulse Resp BP Pulse Ox 98.6 F 65 18 133/84 99 02/22/18 07:10 02/22/18 07:10 02/22/18 07:10 02/22/18 07:10 02/22/18 07:10 Intake and Output: 02/22/18 02/22/18 06:59 18:59 Output Total 600 Balance -600 - Medications Medications: Current Medications Acetaminophen (Tylenol 325mg Tab) 650 mg PO Q6 PRN PRN Reason: Pain, moderate (4-7) Last Admin: 02/22/18 08:29 Dose: 650 mg Aspirin (Ecotrin) 81 mg PO QAM [facility] Last Admin: 02/22/18 09:44 Dose: 81 mg Enoxaparin Sodium (Lovenox) 40 mg SC DAILY [facility] Last Admin: 02/22/18 09:43 Dose: 40 mg Lorazepam (Ativan) 1 mg PO Q6 PRN PRN Reason: Anxiety Losartan Potassium (Cozaar) 25 mg PO DAILY [facility] Last Admin: 02/22/18 09:44 Dose: 25 mg Ondansetron HCl (Zofran Inj) 4 mg IVP Q8H PRN PRN Reason: Nausea/Vomiting Pantoprazole Sodium (Protonix Inj) 40 mg IVP DAILY [facility] [place] Last Admin: 02/22/18 09:42 Dose: 40 mg - Labs Labs: 02/21/18 07:45 02/20/18 14:07 PT 11.5 SECONDS (9.7-12.2) 02/19/18 18:09 INR 1.1 02/19/18 18:09 APTT 26 SECONDS (21-34) 02/19/18 18:09
--- NOTE | 2018-02-23 08:24 | PN ---
DATE: 02/22/2018 The patient is improving, more awake. Dr. Adair, for a ____ consult. Familia Rosen MD
--- NOTE | 2018-02-23 09:02 | HP ---
SUBJECTIVE: This is a 62-year-old male with history of alcoholism, history of cardiac arrhythmia, admitted to the hospital with chief complaint of syncope, weakness, alcohol intoxication. Patient came to the hospital, advised admission. PHYSICAL EXAMINATION: GENERAL: The patient is awake and lethargic. VITAL SIGNS: Temperature 98, pulse is 90. HEENT: Within normal limits. NECK: Supple. CHEST: Symmetrical. HEART: Regular. ABDOMEN: Soft. EXTREMITIES: No edema. IMPRESSION: Patient suffers from . Patient on bed rest, cardiology evaluation. Familia Rosen MD
--- NOTE | 2018-02-23 09:48 | CP.PCM.PN ---
Subjective - Date & Time of Evaluation Date of Evaluation: 02/23/18 Time of Evaluation: 09:00 - Subjective Subjective: PGY 2 medicine progress note for Dr. Rosen: Patient was seen and examined at bedside this morning. Patient admits to mild pain, but tolerating. Patient denies fever, chills, nausea, vomiting, chest pain. Objective - Vital Signs/Intake and Output Vital Signs (last 24 hours): Temp Pulse Resp BP Pulse Ox 98.2 F 66 20 136/79 97 02/23/18 07:25 02/23/18 08:32 02/23/18 07:25 02/23/18 07:25 02/23/18 07:25 Intake and Output: 02/23/18 02/23/18 06:59 18:59 Output Total 400 Balance -400 - Medications Medications: Current Medications Acetaminophen (Tylenol 325mg Tab) 650 mg PO Q6 PRN PRN Reason: Pain, moderate (4-7) Last Admin: 02/22/18 18:23 Dose: 650 mg [facility] ([facility]) [facility] Last Admin: 02/22/18 09:44 Dose: 81 mg Enoxaparin Sodium (Lovenox) 40 mg SC DAILY [facility] Last Admin: 02/22/18 09:43 Dose: 40 mg Lorazepam (Ativan) 1 mg PO Q6 PRN PRN Reason: Anxiety Losartan Potassium (Cozaar) 25 mg PO DAILY [facility] Last Admin: 02/22/18 09:44 Dose: 25 mg Ondansetron HCl (Zofran Inj) 4 mg IVP Q8H PRN PRN Reason: Nausea/Vomiting Pantoprazole Sodium (Protonix Inj) 40 mg IVP DAILY [facility] Last Admin: 02/22/18 09:42 Dose: 40 mg - Labs Labs: 02/21/18 07:45 02/20/18 14:07 PT 11.5 SECONDS (9.7-12.2) 02/19/18 18:09 INR 1.1 02/19/18 18:09 APTT 26 SECONDS (21-34) 02/19/18 18:09 - Constitutional Appears: Non-toxic, No Acute Distress - Head Exam Head Exam: ATRAUMATIC, NORMAL INSPECTION - Eye Exam Eye Exam: EOMI - ENT Exam ENT Exam: Mucous Membranes Moist - Respiratory Exam Respiratory Exam: Clear to Ausculation Bilateral, NORMAL BREATHING PATTERN. absent: Respiratory Distress - Cardiovascular Exam Cardiovascular Exam: REGULAR RHYTHM, +S1, +S2 - GI/Abdominal Exam GI & Abdominal Exam: Soft, Normal Bowel Sounds. absent: Distended, Firm, Tenderness - Extremities Exam Extremities Exam: Normal Inspection - Back Exam Back Exam: NORMAL INSPECTION - Neurological Exam Neurological Exam: Alert, Awake, Oriented x3 Assessment and Plan - Assessment and Plan (Free Text) Assessment: Congestive heart failure without preserved EF Dr. Perez consulted, help appreciated - normal coronaries per recent cath report Dr. Adair consulted help appreciated - ICD necessary? f/u MUGA scan Troponin negative Has an implantable loop recorder Syncope Has had multiple episodes before Has an implantable loop recorder likely ETOH related EtOH abuse disorder PO folic acid/MV/thiamine Ativan 1mg PO Q6 prn anxiety HTN Losartan 25mg Po daily well controlled Pancytopenia Etiology: likely secondary to alcohol use WBC 2.8 HIV negative Spondylosis at many levels in the lower lumbar spine to be managed outpatient Patient o take calcium and vitamin D outpatient Prophylactic measures Lovenox 40mg IVP daily Zofran prn SCDs Heart healthy diet All medical management per Dr. Rosen:
[2018-02-23] MEDS: Multiple Vitamins Tab PO SCH (10:41)
[2018-02-23 11:01] LABS: BASO % 1.3 % (0.0-2.0); EOS # 0.2 K/uL (0.0-0.7); EOS % 5.7 % (0.0-4.0); HEMOGLOBIN 8.2 g/dL (12.0-18.0); LYMPH # 0.7 K/uL (1.0-4.3); LYMPH % 22.6 % (20.0-40.0); MEAN CELL VOLUME 93.6 fL (80.0-94.0); MEAN CORPUSCULAR HEMOGLOBIN 32.1 pg (27.0-31.0); MEAN CORPUSCULAR HGB CONC 34.3 g/dL (33.0-37.0); MEAN PLATELET VOLUME 8.6 fL (7.2-11.7); MONO # 0.4 K/uL (0.0-0.8); MONO % 12.3 % (0.0-10.0); NEUT # 1.9 K/uL (1.8-7.0); NEUT % 58.1 % (50.0-75.0); NRBC % 0.1 % (0.0-2.0); RBC 2.56 Mil/uL (4.40-5.90); RED CELL DISTRIBUTION WIDTH 16.5 % (11.5-14.5); WHITE BLOOD COUNT 3.2 K/uL (4.8-10.8)
[2018-02-23] MEDS: Enoxaparin 40 mg Syringe SC SCH ×2 (11:07→11:20)
[2018-02-23 11:15] LABS: ALB/GLOB RATIO 1.1 (1.0-2.1); ALBUMIN 3.7 g/dL (3.5-5.0); ALT/SGPT 42 U/L (21-72); AST/SGOT 67 U/L (17-59); BLOOD UREA NITROGEN 23 mg/dL (9-20); CALCIUM 8.2 mg/dl (8.6-10.4); GFR AFRICAN-AMERICAN > 60; GFR NON-AFRICAN AMERICAN > 60
[2018-02-23] MEDS: Magnesium Sulfate 1 gm in D5W 1 GM/100 ML BAG IVPB SCH ×4 (14:57→18:07)
--- NOTE | 2018-02-23 17:28 | CP.PCM.PN ---
Subjective - Date & Time of Evaluation Date of Evaluation: 02/23/18 Time of Evaluation: 14:05 - Subjective Subjective: Patient seen and evaluated Denies chest pain and dyspnea Objective - Vital Signs/Intake and Output Vital Signs (last 24 hours): Temp Pulse Resp BP Pulse Ox 97.8 F 65 20 119/63 99 02/23/18 16:00 02/23/18 16:00 02/23/18 16:00 02/23/18 16:00 02/23/18 16:00 Intake and Output: 02/23/18 02/23/18 06:59 18:59 Output Total 400 Balance -400 - Medications Medications: Current Medications Acetaminophen (Tylenol 325mg Tab) 650 mg PO Q6 PRN PRN Reason: Pain, moderate (4-7) Last Admin: 02/22/18 18:23 Dose: 650 mg Aspirin (Ecotrin) 81 mg PO QAM [facility] Last Admin: 02/23/18 10:33 Dose: 81 mg Enoxaparin Sodium (Lovenox) 40 mg SC DAILY [facility] Last Admin: 02/23/18 11:20 Dose: 40 mg Folic Acid (Folic Acid) 1 mg PO DAILY [facility] Last Admin: 02/23/18 10:41 Dose: 1 mg Lorazepam (Ativan) 1 mg PO Q6 PRN PRN Reason: Anxiety Losartan Potassium (Cozaar) 25 mg PO DAILY [facility] Last Admin: 02/23/18 10:33 Dose: 25 mg Multivitamins (Hexavitamin) 1 tab PO DAILY [facility] Last Admin: 02/23/18 10:41 Dose: 1 tab Ondansetron HCl (Zofran Inj) 4 mg IVP Q8H PRN PRN Reason: Nausea/Vomiting Pantoprazole Sodium (Protonix Inj) 40 mg IVP DAILY [facility] Last Admin: 02/23/18 10:33 Dose: 40 mg Thiamine HCl (Vitamin B1 Tab) 100 mg PO DAILY [facility] Last Admin: 02/23/18 10:41 Dose: 100 mg - Labs Labs: 02/23/18 10:53 02/23/18 10:53 PT 11.5 SECONDS (9.7-12.2) 02/19/18 18:09 INR 1.1 02/19/18 18:09 APTT 26 SECONDS (21-34) 02/19/18 18:09 - Head Exam Head Exam: ATRAUMATIC, NORMAL INSPECTION - Eye Exam Eye Exam: EOMI, Normal appearance Pupil Exam: NORMAL ACCOMODATION, PERRL - ENT Exam ENT Exam: Mucous Membranes Moist, Normal Exam - Neck Exam Neck Exam: Full ROM, Normal Inspection - Respiratory Exam Respiratory Exam: Clear to Ausculation Bilateral, NORMAL BREATHING PATTERN - Cardiovascular Exam Cardiovascular Exam: REGULAR RHYTHM, +S1, +S2 - GI/Abdominal Exam GI & Abdominal Exam: Soft, Normal Bowel Sounds - Extremities Exam Extremities Exam: Full ROM, Normal Capillary Refill - Back Exam Back Exam: NORMAL INSPECTION - Neurological Exam Neurological Exam: Alert, Awake, CN II-XII Intact, Oriented x3 - Skin Skin Exam: Dry, Warm Assessment and Plan - Assessment and Plan (Free Text) Assessment: 1. CHF with preserved EF MUGA scan EF 65% (no need of AICD) 2. HTN 3. ETPH dependance 4. Normal coronaries medical management
[2018-02-24 06:39] LABS: BASO % 1.2 % (0.0-2.0); EOS # 0.2 K/uL (0.0-0.7); EOS % 5.5 % (0.0-4.0); LYMPH # 0.8 K/uL (1.0-4.3); LYMPH % 21.4 % (20.0-40.0); MEAN CELL VOLUME 93.7 fL (80.0-94.0); MEAN CORPUSCULAR HEMOGLOBIN 32.7 pg (27.0-31.0); MEAN CORPUSCULAR HGB CONC 34.9 g/dL (33.0-37.0); MEAN PLATELET VOLUME 8.3 fL (7.2-11.7); MONO # 0.5 K/uL (0.0-0.8); NEUT # 2.1 K/uL (1.8-7.0); NEUT % 58.9 % (50.0-75.0); NRBC % 0.1 % (0.0-2.0); RBC 2.46 Mil/uL (4.40-5.90); RED CELL DISTRIBUTION WIDTH 16.7 % (11.5-14.5); WHITE BLOOD COUNT 3.5 K/uL (4.8-10.8)
[2018-02-24 06:54] LABS: ALBUMIN 3.6 g/dL (3.5-5.0)
[2018-02-24 07:35] LABS: ALB/GLOB RATIO 1.3 (1.0-2.1); ALT/SGPT 31 U/L (21-72); AST/SGOT 51 U/L (17-59); BLOOD UREA NITROGEN 21 mg/dL (9-20); CALCIUM 8.4 mg/dl (8.6-10.4); GFR AFRICAN-AMERICAN > 60; GFR NON-AFRICAN AMERICAN 56
--- NOTE | 2018-02-24 07:51 | CP.PCM.PN ---
Subjective - Date & Time of Evaluation Date of Evaluation: 02/24/18 Time of Evaluation: 07:50 - Subjective Subjective: Progress note for Dr. Rosen's Service Patient seen and examined at bedside this morning. Patient denies fever, chills , nausea, vomiting, chest pain. He complains of mild left sided lower rib pain. He states that he is otherwise well. Objective - Vital Signs/Intake and Output Vital Signs (last 24 hours): Temp Pulse Resp BP Pulse Ox 98.2 F 65 20 135/76 98 02/23/18 23:45 02/23/18 23:45 02/23/18 23:45 02/23/18 23:45 02/23/18 23:45 Intake and Output: 02/24/18 02/24/18 06:59 18:59 Output Total 400 Balance -400 - Medications Medications: Current Medications Acetaminophen (Tylenol 325mg Tab) 650 mg PO Q6 PRN PRN Reason: Pain, moderate (4-7) Last Admin: 02/24/18 06:25 Dose: 650 mg Aspirin (Ecotrin) 81 mg PO QAM [facility] Last Admin: 02/23/18 10:33 Dose: 81 mg Enoxaparin Sodium (Lovenox) 40 mg SC DAILY [facility] Last Admin: 02/23/18 11:20 Dose: 40 mg Folic Acid (Folic Acid) 1 mg PO DAILY [facility] Last Admin: 02/23/18 10:41 Dose: 1 mg Lorazepam (Ativan) 1 mg PO Q6 PRN PRN Reason: Anxiety Losartan Potassium (Cozaar) 25 mg PO DAILY [facility] Last Admin: 02/23/18 10:33 Dose: 25 mg Multivitamins (Hexavitamin) 1 tab PO DAILY [facility] Last Admin: 02/23/18 10:41 Dose: 1 tab Ondansetron HCl (Zofran Inj) 4 mg IVP Q8H PRN PRN Reason: Nausea/Vomiting Pantoprazole Sodium (Protonix Inj) 40 mg IVP DAILY [facility] Last Admin: 02/23/18 10:33 Dose: 40 mg Thiamine HCl (Vitamin B1 Tab) 100 mg PO DAILY [facility] Last Admin: 02/23/18 10:41 Dose: 100 mg - Labs Labs: 02/24/18 06:26 02/24/18 06:26 PT 11.5 SECONDS (9.7-12.2) 02/19/18 18:09 INR 1.1 02/19/18 18:09 APTT 26 SECONDS (21-34) 02/19/18 18:09 - Constitutional Appears: No Acute Distress - Head Exam Head Exam: ATRAUMATIC - Eye Exam Eye Exam: EOMI, Normal appearance - ENT Exam ENT Exam: Mucous Membranes Moist - Respiratory Exam Respiratory Exam: Clear to Ausculation Bilateral, NORMAL BREATHING PATTERN - Cardiovascular Exam Cardiovascular Exam: REGULAR RHYTHM, +S1, +S2 - GI/Abdominal Exam GI & Abdominal Exam: Soft. absent: Tenderness - Neurological Exam Neurological Exam: Alert, Awake, Oriented x3 - Psychiatric Exam Psychiatric exam: Normal Affect, Normal Mood - Skin Skin Exam: Dry, Warm Assessment and Plan - Assessment and Plan (Free Text) Plan: Congestive heart failure with preserved EF Dr. Perez consulted, help appreciated - normal coronaries per recent cath report Dr. Adair consulted help appreciated MUGA scan EF 65% (no need of AICD) Troponin negative Has an implantable loop recorder Syncope Has had multiple episodes before Has an implantable loop recorder likely ETOH related EtOH abuse disorder PO folic acid/MV/thiamine Ativan 1mg PO Q6 prn anxiety HTN Losartan 25mg Po daily well controlled Pancytopenia Etiology: likely secondary to alcohol use WBC 2.8 HIV negative Spondylosis at many levels in the lower lumbar spine to be managed outpatient Patient o take calcium and vitamin D outpatient Prophylactic measures Lovenox 40mg IVP daily Zofran prn SCDs Heart healthy diet D/C PENDING PT EVAL Case discussed with Dr. Rosen All medical management per Dr. Rosen
[2018-02-24] MEDS: Enoxaparin 40 mg Syringe SC SCH (09:20)
[2018-02-24] MEDS: Multiple Vitamins Tab PO SCH (09:29)
--- NOTE | 2018-02-25 04:51 | CP.PCM.PN ---
Subjective - Date & Time of Evaluation Date of Evaluation: 02/24/18 Time of Evaluation: 16:20 Objective - Vital Signs/Intake and Output Vital Signs (last 24 hours): Temp Pulse Resp BP Pulse Ox 98.4 F 82 20 126/78 98 02/24/18 23:50 02/25/18 00:56 02/24/18 23:50 02/24/18 23:50 02/24/18 23:50 Intake and Output: 02/24/18 02/25/18 18:59 06:59 Output Total 150 Balance -150 - Medications Medications: Current Medications Acetaminophen (Tylenol 325mg Tab) 650 mg PO Q6 PRN PRN Reason: Pain, moderate (4-7) Last Admin: 02/24/18 06:25 Dose: 650 mg Aspirin (Ecotrin) 81 mg PO QAM [facility] Last Admin: 02/24/18 09:20 Dose: 81 mg Enoxaparin Sodium (Lovenox) 40 mg SC DAILY [facility] Last Admin: 02/24/18 09:20 Dose: 40 mg Folic Acid (Folic Acid) 1 mg PO DAILY [facility] Last Admin: 02/24/18 09:29 Dose: 1 mg Lorazepam (Ativan) 1 mg PO Q6 PRN PRN Reason: Anxiety Losartan Potassium (Cozaar) 25 mg PO DAILY [facility] Last Admin: 02/24/18 09:20 Dose: 25 mg Multivitamins (Hexavitamin) 1 tab PO DAILY [facility] Last Admin: 02/24/18 09:29 Dose: 1 tab Ondansetron HCl (Zofran Inj) 4 mg IVP Q8H PRN PRN Reason: Nausea/Vomiting Pantoprazole Sodium (Protonix Inj) 40 mg IVP DAILY [facility] Last Admin: 02/24/18 09:19 Dose: 40 mg Thiamine HCl (Vitamin B1 Tab) 100 mg PO DAILY [facility] Last Admin: 02/24/18 09:29 Dose: 100 mg - Labs Labs: 02/24/18 06:26 02/24/18 06:26 PT 11.5 SECONDS (9.7-12.2) 02/19/18 18:09 INR 1.1 02/19/18 18:09 APTT 26 SECONDS (21-34) 02/19/18 18:09 Assessment and Plan - Assessment and Plan (Free Text) Assessment: Congestive heart failure with preserved EF MUGA scan EF 65% (no need of AICD) Troponin negative Has an implantable loop recorder Syncope Has had multiple episodes before Has an implantable loop recorder likely ETOH related EtOH abuse disorder PO folic acid/MV/thiamine Ativan 1mg PO Q6 prn anxiety HTN Losartan 25mg Po daily well controlled Pancytopenia Etiology: likely secondary to alcohol use WBC 2.8 HIV negative Spondylosis at many levels in the lower lumbar spine to be managed outpatient Patient o take calcium and vitamin D outpatient Prophylactic measures Lovenox 40mg IVP daily Zofran prn SCDs Heart healthy diet
--- NOTE | 2018-02-25 04:52 | CP.PCM.PN ---
Subjective - Date & Time of Evaluation Date of Evaluation: 02/24/18 Time of Evaluation: 15:10 - Subjective Subjective: Patient seen and evaluated Denies chest pain and dyspnea Physical examination - Constitutional Appears: No Acute Distress - Head Exam Head Exam: ATRAUMATIC - Eye Exam Eye Exam: EOMI, Normal appearance - ENT Exam ENT Exam: Mucous Membranes Moist - Respiratory Exam Respiratory Exam: Clear to Ausculation Bilateral, NORMAL BREATHING PATTERN - Cardiovascular Exam Cardiovascular Exam: REGULAR RHYTHM, +S1, +S2 - GI/Abdominal Exam GI & Abdominal Exam: Soft. absent: Tenderness - Neurological Exam Neurological Exam: Alert, Awake, Oriented x3 - Psychiatric Exam Psychiatric exam: Normal Affect, Normal Mood - Skin Skin Exam: Dry, Warm Objective - Vital Signs/Intake and Output Vital Signs (last 24 hours): Temp Pulse Resp BP Pulse Ox 98.4 F 82 20 126/78 98 02/24/18 23:50 02/25/18 00:56 02/24/18 23:50 02/24/18 23:50 02/24/18 23:50 Intake and Output: 02/24/18 02/25/18 18:59 06:59 Output Total 150 Balance -150 - Medications Medications: Current Medications Acetaminophen (Tylenol 325mg Tab) 650 mg PO Q6 PRN PRN Reason: Pain, moderate (4-7) Last Admin: 02/24/18 06:25 Dose: 650 mg Aspirin (Ecotrin) 81 mg PO QAM [facility] Last Admin: 02/24/18 09:20 Dose: 81 mg Enoxaparin Sodium (Lovenox) 40 mg SC DAILY [facility] Last Admin: 02/24/18 09:20 Dose: 40 mg Folic Acid (Folic Acid) 1 mg PO DAILY [facility] Last Admin: 02/24/18 09:29 Dose: 1 mg Lorazepam (Ativan) 1 mg PO Q6 PRN PRN Reason: Anxiety Losartan Potassium (Cozaar) 25 mg PO DAILY [facility] Last Admin: 02/24/18 09:20 Dose: 25 mg Multivitamins (Hexavitamin) 1 tab PO DAILY [facility] Last Admin: 02/24/18 09:29 Dose: 1 tab Ondansetron HCl (Zofran Inj) 4 mg IVP Q8H PRN PRN Reason: Nausea/Vomiting Pantoprazole Sodium (Protonix Inj) 40 mg IVP DAILY [facility] Last Admin: 02/24/18 09:19 Dose: 40 mg Thiamine HCl (Vitamin B1 Tab) 100 mg PO DAILY [facility] Last Admin: 02/24/18 09:29 Dose: 100 mg - Labs Labs: 02/24/18 06:26 02/24/18 06:26 PT 11.5 SECONDS (9.7-12.2) 02/19/18 18:09 INR 1.1 02/19/18 18:09 APTT 26 SECONDS (21-34) 02/19/18 18:09
[2018-02-25 08:05] LABS: BASO # 0.1 K/uL (0.0-0.2); BASO % 1.4 % (0.0-2.0); EOS # 0.3 K/uL (0.0-0.7); EOS % 5.9 % (0.0-4.0); HEMOGLOBIN 8.2 g/dL (12.0-18.0); LYMPH # 0.8 K/uL (1.0-4.3); LYMPH % 18.7 % (20.0-40.0); MEAN CELL VOLUME 94.7 fL (80.0-94.0); MEAN CORPUSCULAR HEMOGLOBIN 32.6 pg (27.0-31.0); MEAN CORPUSCULAR HGB CONC 34.5 g/dL (33.0-37.0); MONO # 0.5 K/uL (0.0-0.8); NEUT # 2.6 K/uL (1.8-7.0); RBC 2.52 Mil/uL (4.40-5.90); RED CELL DISTRIBUTION WIDTH 16.9 % (11.5-14.5); WHITE BLOOD COUNT 4.3 K/uL (4.8-10.8)
[2018-02-25 08:20] LABS: ALB/GLOB RATIO 1.3 (1.0-2.1); ALBUMIN 4.2 g/dL (3.5-5.0); ALT/SGPT 25 U/L (21-72); AST/SGOT 41 U/L (17-59); BLOOD UREA NITROGEN 18 mg/dL (9-20); CALCIUM 8.8 mg/dl (8.6-10.4); GFR AFRICAN-AMERICAN > 60; GFR NON-AFRICAN AMERICAN > 60
[2018-02-25] MEDS: Multiple Vitamins Tab PO SCH (10:20)
[2018-02-25] MEDS: Enoxaparin 40 mg Syringe SC SCH (10:20)
--- NOTE | 2018-02-25 13:47 | CP.PCM.PN ---
Subjective - Date & Time of Evaluation Date of Evaluation: 02/25/18 Time of Evaluation: 08:00 - Subjective Subjective: Progress note for Dr. Rosen's Service Patient seen and examined at bedside this morning. Patient denies fever, chills , nausea, vomiting, chest pain. He sates he did not do well with physical therapy and needs help ambulating. He states that he is otherwise well. He denied chest pain or shortness of breath. He is eating well and has no difficulty using the bathroom. Objective - Vital Signs/Intake and Output Vital Signs (last 24 hours): Temp Pulse Resp BP Pulse Ox 98.3 F 66 20 132/77 97 02/25/18 07:10 02/25/18 11:30 02/25/18 07:10 02/25/18 07:10 02/25/18 07:10 Intake and Output: 02/25/18 02/25/18 06:59 18:59 Output Total 650 Balance -650 - Medications Medications: Current Medications Acetaminophen (Tylenol 325mg Tab) 650 mg PO Q6 PRN PRN Reason: Pain, moderate (4-7) Last Admin: 02/24/18 06:25 Dose: 650 mg Aspirin (Ecotrin) 81 mg PO QAM [facility] Last Admin: 02/25/18 10:20 Dose: 81 mg Enoxaparin Sodium (Lovenox) 40 mg SC DAILY [facility] Last Admin: 02/25/18 10:20 Dose: 40 mg Folic Acid (Folic Acid) 1 mg PO DAILY [facility] Last Admin: 02/25/18 10:20 Dose: 1 mg Lorazepam (Ativan) 1 mg PO Q6 PRN PRN Reason: Anxiety Losartan Potassium (Cozaar) 25 mg PO DAILY [facility] Last Admin: 02/25/18 10:20 Dose: 25 mg Multivitamins (Hexavitamin) 1 tab PO DAILY [facility] Last Admin: 02/25/18 10:20 Dose: 1 tab Ondansetron HCl (Zofran Inj) 4 mg IVP Q8H PRN PRN Reason: Nausea/Vomiting Pantoprazole Sodium (Protonix Inj) 40 mg IVP DAILY [facility] Last Admin: 02/25/18 10:20 Dose: 40 mg Thiamine HCl (Vitamin B1 Tab) 100 mg PO DAILY [facility] Last Admin: 02/25/18 10:20 Dose: 100 mg - Labs Labs: 02/25/18 07:40 02/25/18 07:40 PT 11.5 SECONDS (9.7-12.2) 02/19/18 18:09 INR 1.1 02/19/18 18:09 APTT 26 SECONDS (21-34) 02/19/18 18:09 - Constitutional Appears: Non-toxic, No Acute Distress - Head Exam Head Exam: NORMAL INSPECTION - Eye Exam Eye Exam: EOMI - ENT Exam ENT Exam: Mucous Membranes Moist - Respiratory Exam Respiratory Exam: Clear to Ausculation Bilateral, NORMAL BREATHING PATTERN. absent: Respiratory Distress - Cardiovascular Exam Cardiovascular Exam: REGULAR RHYTHM, +S1, +S2 - GI/Abdominal Exam GI & Abdominal Exam: Soft, Normal Bowel Sounds. absent: Distended, Firm, Guarding, Tenderness - Back Exam Back Exam: NORMAL INSPECTION - Neurological Exam Neurological Exam: Alert, Oriented x3 Assessment and Plan - Assessment and Plan (Free Text) Assessment: Congestive heart failure with preserved EF Dr. Perez consulted, help appreciated - normal coronaries per recent cath report Dr. Adair consulted help appreciated MUGA scan EF 65% (no need of AICD) Troponin negative Has an implantable loop recorder Syncope Has had multiple episodes before Has an implantable loop recorder likely ETOH related EtOH abuse disorder PO folic acid/MV/thiamine Ativan 1mg PO Q6 prn anxiety HTN Losartan 25mg Po daily well controlled Pancytopenia Etiology: likely secondary to alcohol use WBC 2.8 HIV negative Spondylosis at many levels in the lower lumbar spine to be managed outpatient Patient o take calcium and vitamin D outpatient Prophylactic measures Lovenox 40mg IVP daily Zofran prn SCDs Heart healthy diet Disop - PT rec dc to rehab, pending placement All medical management per Dr. Rosen
--- NOTE | 2018-02-25 20:44 | CP.PCM.PN ---
Subjective - Date & Time of Evaluation Date of Evaluation: 02/25/18 Time of Evaluation: 12:10 - Subjective Subjective: Patient seen and evaluated Denies chest pain and dyspnea Physical examination - Constitutional Appears: No Acute Distress - Head Exam Head Exam: ATRAUMATIC - Eye Exam Eye Exam: EOMI, Normal appearance - ENT Exam ENT Exam: Mucous Membranes Moist - Respiratory Exam Respiratory Exam: Clear to Ausculation Bilateral, NORMAL BREATHING PATTERN - Cardiovascular Exam Cardiovascular Exam: REGULAR RHYTHM, +S1, +S2 - GI/Abdominal Exam GI & Abdominal Exam: Soft. absent: Tenderness - Neurological Exam Neurological Exam: Alert, Awake, Oriented x3 - Psychiatric Exam Psychiatric exam: Normal Affect, Normal Mood - Skin Skin Exam: Dry, Warm Objective - Vital Signs/Intake and Output Vital Signs (last 24 hours): Temp Pulse Resp BP Pulse Ox 98.2 F 63 20 145/91 H 100 02/25/18 15:00 02/25/18 20:00 02/25/18 15:00 02/25/18 15:00 02/25/18 15:00 - Medications Medications: Current Medications Acetaminophen (Tylenol 325mg Tab) 650 mg PO Q6 PRN PRN Reason: Pain, moderate (4-7) Last Admin: 02/25/18 14:24 Dose: 650 mg Aspirin (Ecotrin) 81 mg PO QAM [facility] Last Admin: 02/25/18 10:20 Dose: 81 mg Enoxaparin Sodium (Lovenox) 40 mg SC DAILY [facility] Last Admin: 02/25/18 10:20 Dose: 40 mg Folic Acid (Folic Acid) 1 mg PO DAILY [facility] Last Admin: 02/25/18 10:20 Dose: 1 mg Lorazepam (Ativan) 1 mg PO Q6 PRN PRN Reason: Anxiety Losartan Potassium (Cozaar) 25 mg PO DAILY [facility] Last Admin: 02/25/18 10:20 Dose: 25 mg Multivitamins (Hexavitamin) 1 tab PO DAILY [facility] Last Admin: 02/25/18 10:20 Dose: 1 tab Ondansetron HCl (Zofran Inj) 4 mg IVP Q8H PRN PRN Reason: Nausea/Vomiting Pantoprazole Sodium (Protonix Ec Tab) 40 mg PO DAILY [facility] Thiamine HCl (Vitamin B1 Tab) 100 mg PO DAILY [facility] Last Admin: 02/25/18 10:20 Dose: 100 mg - Labs Labs: 02/25/18 07:40 02/25/18 07:40 PT 11.5 SECONDS (9.7-12.2) 02/19/18 18:09 INR 1.1 02/19/18 18:09 APTT 26 SECONDS (21-34) 02/19/18 18:09 Assessment and Plan - Assessment and Plan (Free Text) Assessment: Congestive heart failure with preserved EF Normal coronaries per recent cath report MUGA scan EF 65% (no need of AICD) Troponin negative Has an implantable loop recorder Syncope Has had multiple episodes before Has an implantable loop recorder likely ETOH related EtOH abuse disorder PO folic acid/MV/thiamine Ativan 1mg PO Q6 prn anxiety HTN Losartan 25mg Po daily well controlled Pancytopenia Etiology: likely secondary to alcohol use WBC 2.8 HIV negative Spondylosis at many levels in the lower lumbar spine to be managed outpatient Patient o take calcium and vitamin D outpatient Prophylactic measures Lovenox 40mg IVP daily Zofran prn SCDs Heart healthy diet
[2018-02-26 00:22] VITALS: O2SAT 98
--- NOTE | 2018-02-26 06:26 | CARD ---
APPROVED REPORT EKG Measurement Heart [id number] <Conclusion> Sinus rhythm with 1st degree AV block Nonspecific T wave abnormality Prolonged QT Abnormal ECG
[2018-02-26 08:01] VITALS: BP 130/76; RESP 18; TEMP 98.2
[2018-02-26 08:32] VITALS: PULSE 64
--- NOTE | 2018-02-26 08:46 | CP.PCM.PN ---
Subjective - Date & Time of Evaluation Date of Evaluation: 02/26/18 Time of Evaluation: 08:44 - Subjective Subjective: Progress note for Dr. Rosen's Service Patient seen and examined at bedside. Nursing reports no acute events overnight. Patient denies chest pain, SOB, or palpitations. Denies abd pain, N/V , or difficulty walking. Objective - Vital Signs/Intake and Output Vital Signs (last 24 hours): Temp Pulse Resp BP Pulse Ox 98.2 F 64 18 130/76 98 02/26/18 07:15 02/26/18 07:50 02/26/18 07:15 02/26/18 07:15 02/26/18 07:15 Intake and Output: 02/26/18 02/26/18 06:59 18:59 Output Total 900 Balance -900 - Medications Medications: Current Medications Acetaminophen (Tylenol 325mg Tab) 650 mg PO Q6 PRN PRN Reason: Pain, moderate (4-7) Last Admin: 02/25/18 14:24 Dose: 650 mg Aspirin (Ecotrin) 81 mg PO QAM [facility] Last Admin: 02/25/18 10:20 Dose: 81 mg Enoxaparin Sodium (Lovenox) 40 mg SC DAILY [facility] Last Admin: 02/25/18 10:20 Dose: 40 mg Folic Acid (Folic Acid) 1 mg PO DAILY [facility] Last Admin: 02/25/18 10:20 Dose: 1 mg Lorazepam (Ativan) 1 mg PO Q6 PRN PRN Reason: Anxiety Losartan Potassium (Cozaar) 25 mg PO DAILY [facility] Last Admin: 02/25/18 10:20 Dose: 25 mg Multivitamins (Hexavitamin) 1 tab PO DAILY [facility] Last Admin: 02/25/18 10:20 Dose: 1 tab Ondansetron HCl (Zofran Inj) 4 mg IVP Q8H PRN PRN Reason: Nausea/Vomiting Pantoprazole Sodium (Protonix Ec Tab) 40 mg PO DAILY [facility] Thiamine HCl (Vitamin B1 Tab) 100 mg PO DAILY [facility] Last Admin: 02/25/18 10:20 Dose: 100 mg - Labs Labs: 02/25/18 07:40 02/25/18 07:40 PT 11.5 SECONDS (9.7-12.2) 02/19/18 18:09 INR 1.1 02/19/18 18:09 APTT 26 SECONDS (21-34) 02/19/18 18:09 - Additional Findings Additional findings: - Constitutional Appears: Non-toxic, No Acute Distress - Head Exam Head Exam: NORMAL INSPECTION - Eye Exam Eye Exam: EOMI - ENT Exam ENT Exam: Mucous Membranes Moist - Respiratory Exam Respiratory Exam: Clear to Ausculation Bilateral, NORMAL BREATHING PATTERN. absent: Respiratory Distress - Cardiovascular Exam Cardiovascular Exam: REGULAR RHYTHM, +S1, +S2 - GI/Abdominal Exam GI & Abdominal Exam: Soft, Normal Bowel Sounds. absent: Distended, Firm, Guarding, Tenderness - Back Exam Back Exam: NORMAL INSPECTION - Neurological Exam Neurological Exam: Alert, Oriented x3 Assessment and Plan - Assessment and Plan (Free Text) Plan: Congestive heart failure with preserved EF Dr. Dillard consulted, help appreciated - normal coronaries per recent cath report Dr. Adair consulted help appreciated MUGA scan EF 65% (no need of AICD) Troponin negative Has an implantable loop recorder Syncope Has had multiple episodes before Has an implantable loop recorder likely ETOH related EtOH abuse disorder PO folic acid/MV/thiamine Ativan 1mg PO Q6 prn anxiety HTN Losartan 25mg Po daily well controlled Pancytopenia Etiology: likely secondary to alcohol use WBC 2.8 HIV negative Spondylosis at many levels in the lower lumbar spine to be managed outpatient Patient to take calcium and vitamin D outpatient Prophylactic measures Lovenox 40mg IVP daily Zofran prn SCDs Heart healthy diet Dispo - Pt refuses JOSE, will be discharged home All medical management per Dr. Rosen
[2018-02-26] MEDS: Multiple Vitamins Tab PO SCH (09:07)
[2018-02-26] MEDS: Enoxaparin 40 mg Syringe SC SCH (09:08)
[2018-02-26] MEDS ORDERED: Pantoprazole 40 mg EC Tab PO SCH (10:00)
== END 2018-02-26 14:09 | disposition home or self-care (01) | DRG 750 ==
LOC: C.ER 17:37 → C.9E 18:48 → C.6T 20:57 → OBSVTOIN 02-22 15:04
PROVIDERS: ADMIT Internal Medicine Pulmonary Disease; ATTEND Internal Medicine Pulmonary Disease
DX: F10.120 Alcohol abuse with intoxication, uncomplicated (principal); D61.818 Other pancytopenia; I50.22 Chronic systolic (congestive) heart failure; I11.0 Hypertensive heart disease with heart failure; Y90.8 Blood alcohol level of 240 mg/100 ml or more; M47.9 Spondylosis, unspecified; Z87.891 Personal history of nicotine dependence; Z95.810 Presence of automatic (implantable) cardiac defibrillator

== ENCOUNTER 2018-03-14 17:06 | Inpatient (IN) | payer MEDICAID, OTHER ==
[2018-03-14 17:06] VITALS: BMI 24.8
[2018-03-14] MEDS ORDERED: Lactated Ringer's 1,000 ML IVB STA (17:40)
[2018-03-14 18:06] LABS: BASO % 0.8 % (0.0-2.0); EOS % 1.3 % (0.0-4.0); LYMPH % 28.4 % (20.0-40.0); MEAN CORPUSCULAR HEMOGLOBIN 32.2 pg (27.0-31.0); MEAN CORPUSCULAR HGB CONC 33.9 g/dL (33.0-37.0); MEAN PLATELET VOLUME 9.4 fL (7.2-11.7); MONO # 0.5 K/uL (0.0-0.8); MONO % 13.9 % (0.0-10.0); NEUT # 1.9 K/uL (1.8-7.0); NEUT % 55.6 % (50.0-75.0); NRBC % 0.3 % (0.0-2.0); RBC 2.49 Mil/uL (4.40-5.90); RED CELL DISTRIBUTION WIDTH 16.1 % (11.5-14.5); WHITE BLOOD COUNT 3.4 K/uL (4.8-10.8)
[2018-03-14 18:12] LABS: ALB/GLOB RATIO 1.4 (1.0-2.1); ALBUMIN 4.9 g/dL (3.5-5.0); ALT/SGPT 46 U/L (21-72); AST/SGOT 127 U/L (17-59); BLOOD UREA NITROGEN 28 mg/dL (9-20); GFR AFRICAN-AMERICAN 41; GFR NON-AFRICAN AMERICAN 34; LIPASE 212 U/L (23-300)
[2018-03-14 18:22] LABS: B-TYPE NATRIURETIC PEPTIDE 138 pg/mL (0-900)
[2018-03-14] MEDS ORDERED: Multivitamin (MVI) 10 ML, Thiamine 100 MG, Folic Acid 1 MG in Sodium Chloride 0.9% 1,00... IV STA (18:24)
--- NOTE | 2018-03-14 18:40 | C.PDOC ---
Time Seen by Provider: 03/14/18 17:24 Chief Complaint (Nursing): Syncope History Per: Patient Onset/Duration Of Symptoms: Hrs (today) Current Symptoms Are (Timing): Still Present Number Of Syncopal Episodes: 1 Fall Associated With With Symptoms: No Severity: Moderate Additional History Per: Prior Records - Symptoms Of CVA Recent Aspirin Use: Yes (Last Taken) Current Coumadin Use?: No Recent Head Trauma: No Past Medical History Reviewed: Historical Data, Nursing Documentation, Vital Signs Vital Signs: Last Vital Signs Temp 98.9 F 03/14/18 17:12 Pulse 79 03/14/18 17:18 Resp 20 03/14/18 17:12 BP 107/72 03/14/18 17:18 Pulse Ox 98 03/14/18 18:42 - Medical History PMH: Anemia, Anxiety, Arthritis, CHF, Depression, Gastritis, Gastrointestinal Ulcer (PEPTIC), HTN, Pancreatitis, Peripheral Edema Other PMH: Alcohol abuse Surgical History: - [facility] Procedures ALCOHOL DETOXIFICATION (05/03/13) DETOXIFICATION SERVICES FOR SUBSTANCE ABUSE TREATMENT (07/13/17) EXCISION OF DESCENDING COLON, ENDO, DIAGN (03/14/16) EXCISION OF STOMACH, ENDO, DIAGN (11/26/16) EXTIRPATION OF MATTER FROM LARGE INTESTINE, ENDO (01/09/17) FLUOROSCOPY OF LEFT HEART USING LOW OSMOLAR CONTRAST (07/13/17) FLUOROSCOPY OF MULT COR ART USING L OSM CONTRAST (07/13/17) GROUP PSYCHOTHERAPY (01/24/16) INSERT OF MONITOR DEV INTO CHEST SUBCU/FASCIA, OPEN APPROACH (12/18/16) MEASURE OF ARTERIAL PRESSURE, PERIPHERAL, CLERICAL SUPPORT SPECIALIST APPROACH (12/18/16) MEASURE OF CARDIAC SAMPL & PRESSURE, L HEART, PERC APPROACH (07/13/17) MEASUREMENT OF CARDIAC RHYTHM, EXTERNAL APPROACH (12/18/16) TRANSFUSE NONAUT RED BLOOD CELLS IN PERIPH ART, PERC (01/09/17) TRANSFUSE NONAUT RED BLOOD CELLS IN PERIPH VEIN, PERC (07/28/16) Family History: States: Unknown Family Hx - Social History Hx Tobacco Use: No (quit 2 months now) Hx Alcohol Use: Yes Hx Substance Use: No - Immunization History Hx Tetanus Toxoid Vaccination: No Hx Influenza Vaccination: No Hx Pneumococcal Vaccination: No Review Of Systems Constitutional: Negative for: Fever Cardiovascular: Positive for: Chest Pain Respiratory: Negative for: Shortness of Breath Gastrointestinal: Positive for: Nausea, Vomiting, Abdominal Pain. Negative for : Melena, Hematochezia, Hematemesis Musculoskeletal: Negative for: Neck Pain, Back Pain, Leg Pain Skin: Negative for: Rash Neurological: Negative for: Weakness, Numbness, Seizures, Headache Physical Exam - Physical Exam Appears: Non-toxic, No Acute Distress, Other (AOB) Skin: Normal Color, Warm, Dry Head: Atraumatic, Normacephalic Eye(s): bilateral: PERRL, EOMI Neck: Normal ROM, No Midline Cervical Tenderness, No Step Off Deformity, Supple Cardiovascular: Rhythm Regular Respiratory: Normal Breath Sounds, No Accessory Muscle Use Gastrointestinal/Abdominal: Soft, Tenderness (mild epigastric), No Distention, No Guarding, No Rebound Back: No CVA Tenderness Extremity: Normal ROM, No Pedal Edema, No Calf Tenderness Neurological/Psych: Oriented x3, Normal Motor, Normal Sensation ED Course And Treatment - Laboratory Results Result Diagrams: 03/14/18 17:55 03/14/18 17:55 Interpretation Of Abnormal: Pancytopenia. Renal insufficiency. Elevated alcohol level. ECG: Interpreted By Me, Viewed By Me ECG Rhythm: Sinus Rhythm ECG Interpretation: No Acute Changes Rate From EC O2 Sat by Pulse Oximetry: 98 Pulse Ox Interpretation: Normal - Radiology CXR: Interpreted by Me, Viewed By Me CXR Interpretation: Yes: No Acute Disease Disposition Discussed With : Pablo Silveira Comment: He accepted pt on his service. Doctor Will See Patient In The: Hospital Counseled Patient/Family Regarding: Studies Performed, Diagnosis - Disposition Disposition: HOSPITALIZED Disposition Time: 18:44 Condition: FAIR - Clinical Impression Clinical Impression: Alcohol abuse, Pancytopenia, Renal insufficiency, Syncope, Chest pain
[2018-03-14] MEDS ORDERED: Multivitamin (MVI) 10 ML, Thiamine 100 MG, Folic Acid 1 MG in Sodium Chloride 0.9% 1,00... IV ONE (22:05)
[2018-03-14 22:54] LABS: CK-MB 1.68 ng/mL (0.0-3.38)
[2018-03-15 07:28] LABS: CK-MB 1.33 ng/mL (0.0-3.38); TROPONIN I 0.012 ng/mL (0.00-0.120)
--- NOTE | 2018-03-15 08:39 | RAD ---
Chest x-ray single frontal view History: Syncope. Comparison: 02/19/2018 Findings: Electronic and/or battery device projecting over the medial left mid lung zone. No focal infiltrate or effusion. Tortuous ectatic aorta. Heart size within normal limits. Degenerative changes in the spine and shoulders. Impression: No focal infiltrate or effusion.
[2018-03-15] MEDS: Pantoprazole 40 mg EC Tab PO SCH (09:45)
[2018-03-15] MEDS ORDERED: Enoxaparin 40 mg Syringe SC SCH (10:00)
--- NOTE | 2018-03-15 11:22 | RAD ---
HISTORY: S/P fall COMPARISON: March 14, 2018. TECHNIQUE: Chest PA and lateral FINDINGS: LUNGS: No active pulmonary disease. PLEURA: No significant pleural effusion identified. No pneumothorax apparent. CARDIOVASCULAR: No radiographic findings to suggest acute or significant cardiovascular disease. OSSEOUS STRUCTURES: No significant abnormalities. VISUALIZED UPPER ABDOMEN: Normal. OTHER FINDINGS: None. IMPRESSION: No active disease. No significant interval change compared to the prior examination(s).
--- NOTE | 2018-03-15 12:10 | RAD ---
HISTORY: S/P Fall COMPARISON: No prior. FINDINGS: BOWEL: Normal. No obstruction. No free air. BONES: Lumbar degenerative changes primarily disc space narrowing and non marginal osteophyte formation. OTHER FINDINGS: None. IMPRESSION: No acute findings related to/accounting for the clinical presentation.
[2018-03-15 13:59] LABS: CK-MB 1.24 ng/mL (0.0-3.38)
--- NOTE | 2018-03-15 14:49 | PCM.PSYCH ---
Initial Psychiatric Evaluation - Initial Psychiatric Evaluation Type of Admission: Voluntary Legal Status: Capacity Chief Complaint (in patient's own words): I am withdrawing.' History of Present Illness and Precipitating Events: Patient is a 62 year old AAM with a history of alcohol abuse, was admitted on the medical floor for abdominal pain and pancreatits? Today pt was consulted for withdrawal symptoms. Pt reports h/o multiple detoxes in the past, his last detox was at [facility] 2 years ago. As per him, he remained sober for few months but then he relapsed on drinking and became partial compliant with the meds. He reports of drinking almost -3 pints daily. Last abuse was yesterday. Patient reports withdrawal symptoms i.e., sweating, headaches, anxiety, shakes , nausea and abdominal cramps. He reports anxiety but denies any suicidal ideation or homicidal ideation. Patient reports poor sleep but denies any manic symptoms. He denies any auditory or visual hallucinations or any psychotic symptoms. Current Medications: Active Medications Generic Name Dose Route Start Last Admin Trade Name Rusty PRN Reason Stop Dose Admin Aspirin 81 mg 03/15/18 10:00 03/15/18 09:45 Ecotrin PO 81 mg QAM [facility] Administration Chlordiazepoxide 25 mg 03/14/18 22:05 03/15/18 14:28 Librium PO 25 mg Q8 PRN Administration Agitation Enoxaparin Sodium 40 mg 03/15/18 10:00 Lovenox SC DAILY [facility] Folic Acid 1 mg 03/15/18 10:00 03/15/18 09:45 Folic Acid PO 1 mg DAILY [facility] Administration Multivitamins/Vitamin C 10 ml/ 1,011.2 mls @ 50 mls/hr 03/14/18 22:05 00:11 Thiamine HCl 100 mg/ Folic IV 03/15/18 18:18 50 mls/hr Acid 1 mg/ Sodium Chloride .[id number] ONE Administration Losartan Potassium 25 mg 03/15/18 10:00 03/15/18 09:45 Cozaar PO 25 mg DAILY [facility] Administration Pantoprazole Sodium 40 mg 03/15/18 10:00 03/15/18 09:45 Protonix Ec Tab PO 40 mg DAILY [facility] Administration Thiamine HCl 100 mg 03/15/18 10:00 03/15/18 09:45 Vitamin B1 Tab PO 100 mg DAILY [facility] Administration Tramadol HCl 50 mg 03/15/18 08:59 03/15/18 12:04 Ultram PO 50 mg Q6 PRN Administration Pain, moderate (4-7) Past Psychiatric History - Past Psychiatric History Previous Treatment History: None Pertinent Medical Hx (Current Medical&Sleep Prob, Allergies): Allergies Allergy/AdvReac Type Severity Reaction Status Date / Time Iodinated Contrast- Oral and Allergy Severe SWELLING Verified 02/19/18 17:52 IV Dye shellfish derived Allergy Intermediate RASH Verified 02/19/18 17:52 milk AdvReac Intermediate DIARRHEA Verified 02/19/18 17:52 Aspirin 325 mg PO QAM 02/19/18 Aspirin [Ecotrin] 81 mg PO QAM #30 tabec 02/26/18 Folic Acid 1 mg PO DAILY #30 tab 02/26/18 Losartan [Cozaar] 25 mg PO DAILY #30 tab 02/26/18 Thiamine [Vitamin B1 Tab] 100 mg PO DAILY #30 tab 02/26/18 Review of Systems - Review of Systems All systems: reviewed and no additional remarkable complaints except - Psychiatric Psychiatric: Anxiety, Irritability. absent: Suicidal Ideation Mental Status Examination - Personal Presentation Personal Presentation: Looks stated age - Affect Affect: Constricted - Motor Activity Motor Activity: Calm - Reliability in Providing Information Reliability in Providing Information: Fair - Speech Speech: Organized - Formal Thought Process Formal Thought Process: No Impairment - Obsessions/Compulsions Obsessions: No Compulsions: No - Cognitive Functions Orientation: Person, Place, Situation, Time Sensorium: Alert Attention/Concentration: Attentive Abstract Thinking: [place] Estimate of Intelligence: Below average Judgement: Imparied, as evidence by: Poor judgement, Imparied, as evidence by: Lack of insight into illness - Risk Risk: Withdrawal, Diminished functioning - Strength & Assets Inventory Strength & Assets Inventory: Family support DSM 5 DX - DSM 5 DSM 5 Diagnosis: alcohol use disorder severe Alcohol withdrawal - Recommended/Plan of Treatment Treatment Recommendations and Plan of Treatment: Alcohol use disorder severe CBT Psychoeducation Supportive therapy, individual therapy Use [facility] for abstinence Alcohol withdrawal uncomplicated CBT Psychoeducation Supportive therapy, individual therapy Ativan when necessary Ativan taper Discontinue Librium Folic acid/thiamine/multivitamin
--- NOTE | 2018-03-15 16:40 | CARD ---
APPROVED REPORT EKG Measurement Heart [id number] <Conclusion> Normal sinus rhythm Normal ECG
--- NOTE | 2018-03-15 17:59 | CP.PCM.HP ---
History of Present Illness - History of Present Illness History of Present Illness: Troponin 3 negative cardiology consult with Dr. Miranda Pulmonary consult with Dr. Lynn Aspirin Lovenox Status post psych evaluations Past Patient History - Infectious Disease Hx of Infectious Diseases: None - Past Medical History & Family History Past Medical History?: Yes - Past Social History Smoking Status: Former Smoker - CARDIAC Hx Congestive Heart Failure: Yes Hx Hypertension: Yes Hx Peripheral Edema: Yes - PULMONARY Hx Respiratory Disorders: No - NEUROLOGICAL Hx Neurological Disorder: No Hx Seizures: No - HEENT Hx HEENT Problems: Yes Hx Cataracts: Yes ([facility].Cataract Extraction 2013) - RENAL Hx Chronic Kidney Disease: No Hx Kidney Stones: No - ENDOCRINE/METABOLIC Hx Endocrine Disorders: No - HEMATOLOGICAL/ONCOLOGICAL Hx Anemia: Yes - INTEGUMENTARY Hx Dermatological Problems: No - MUSCULOSKELETAL/RHEUMATOLOGICAL Hx Arthritis: Yes - GASTROINTESTINAL Hx Gastritis: Yes Hx Pancreatitis: Yes - GENITOURINARY/GYNECOLOGICAL Hx Genitourinary Disorders: No Hx Sexually Transmitted Disorders: No - PSYCHIATRIC Hx Anxiety: Yes Hx Depression: Yes Hx Substance Use: No - SURGICAL HISTORY Hx Surgeries: Yes Hx Eye Surgery: Yes ([facility]. Cataract Extraction 2013) Other/Comment: "head injury" hx. "implanted loop recorder" - ANESTHESIA Hx Anesthesia: Yes Hx Anesthesia Reactions: No Hx Malignant Hyperthermia: No Meds Allergies/Adverse Reactions: Allergies Allergy/AdvReac Type Severity Reaction Status Date / Time Iodinated Contrast- Oral and Allergy Severe SWELLING Verified 02/19/18 17:52 IV Dye shellfish derived Allergy Intermediate RASH Verified 02/19/18 17:52 milk AdvReac Intermediate DIARRHEA Verified 02/19/18 17:52 Physical Exam - Constitutional Appears: Well - Head Exam Head Exam: ATRAUMATIC, NORMAL INSPECTION, NORMOCEPHALIC - Eye Exam Eye Exam: EOMI, Normal appearance, PERRL Pupil Exam: NORMAL ACCOMODATION, PERRL - ENT Exam ENT Exam: Mucous Membranes Moist, Normal Exam - Neck Exam Neck exam: Positive for: Normal Inspection - Respiratory Exam Respiratory Exam: Decreased Breath Sounds - Cardiovascular Exam Cardiovascular Exam: REGULAR RHYTHM, +S1, +S2 - GI/Abdominal Exam GI & Abdominal Exam: Diminished Bowel Sounds, Soft - Rectal Exam Rectal Exam: Deferred Results - Vital Signs Recent Vital Signs: Last Vital Signs Temp 98.1 F 03/15/18 15:00 Pulse 69 03/15/18 15:00 Resp 20 03/15/18 15:00 BP 130/79 03/15/18 15:00 Pulse Ox 98 03/15/18 15:00 - Labs Result Diagrams: 03/14/18 17:55 03/14/18 17:55 Labs: Laboratory Results - last 24 hr 03/14/18 03/14/18 03/14/18 17:55 17:55 22:29 WBC 3.4 L RBC 2.49 L Hgb 8.0 L Hct 23.6 L MCV 95.0 H MCH 32.2 H MCHC 33.9 RDW 16.1 H Plt Count 97 L D MPV 9.4 Neut % (Auto) 55.6 Lymph % (Auto) 28.4 Williamson % (Auto) 13.9 H Eos % (Auto) 1.3 Baso % (Auto) 0.8 Neut # (Auto) 1.9 Lymph # (Auto) 1.0 Williamson # (Auto) 0.5 Eos # (Auto) 0.0 Baso # (Auto) 0.0 Sodium 142 Potassium 4.9 Chloride 99 Carbon Dioxide 19 L Anion Gap 28 H BUN 28 H Creatinine 2.0 H Est GFR ( Amer) 41 Est GFR (Non-Af Amer) 34 Random Glucose 79 Calcium 9.0 Magnesium 1.6 Total Bilirubin 1.0 AST 127 H D ALT 46 Alkaline Phosphatase 66 Total Creatine Kinase 296 H CK-MB (Mass) 1.68 Troponin I < 0.0120 < 0.0120 NT-Pro-B Natriuret Pep 138 Total Protein 8.3 Albumin 4.9 Globulin 3.4 Albumin/Globulin Ratio 1.4 Lipase 212 Alcohol, Quantitative 263 H 03/15/18 03/15/18 07:00 13:31 WBC RBC Hgb Hct MCV MCH MCHC RDW Plt Count MPV Neut % (Auto) Lymph % (Auto) Williamson % (Auto) Eos % (Auto) Baso % (Auto) Neut # (Auto) Lymph # (Auto) Williamson # (Auto) Eos # (Auto) Baso # (Auto) Sodium Potassium Chloride Carbon Dioxide Anion Gap BUN Creatinine Est GFR ( Amer) Est GFR (Non-Af Amer) Random Glucose Calcium Magnesium Total Bilirubin AST ALT Alkaline Phosphatase Total Creatine Kinase 261 H 265 H CK-MB (Mass) 1.33 1.24 Troponin I 0.0120 < 0.0120 NT-Pro-B Natriuret Pep Total Protein Albumin Globulin Albumin/Globulin Ratio Lipase Alcohol, Quantitative
[2018-03-16] MEDS: Pantoprazole 40 mg EC Tab PO SCH (09:50)
--- NOTE | 2018-03-16 14:05 | CP.PCM.CON ---
History of Present Illness - History of Present Illness History of Present Illness: CC: Syncope HPI: 62 year old man with ETOH abuse reports syncope. Occcured in the context of ETOH intake. He was reporting nausea and vomiting prior to the episode. Denies any associated seizure like activity. Past Patient History - Infectious Disease Hx of Infectious Diseases: None - Past Medical History & Family History Past Medical History?: Yes - Past Social History Smoking Status: Former Smoker - CARDIAC Hx Congestive Heart Failure: Yes Hx Hypertension: Yes Hx Peripheral Edema: Yes - PULMONARY Hx Respiratory Disorders: No - NEUROLOGICAL Hx Neurological Disorder: No Hx Seizures: No - HEENT Hx HEENT Problems: Yes Hx Cataracts: Yes ([facility].Cataract Extraction 2013) - RENAL Hx Chronic Kidney Disease: No Hx Kidney Stones: No - ENDOCRINE/METABOLIC Hx Endocrine Disorders: No - HEMATOLOGICAL/ONCOLOGICAL Hx Anemia: Yes - INTEGUMENTARY Hx Dermatological Problems: No - MUSCULOSKELETAL/RHEUMATOLOGICAL Hx Arthritis: Yes - GASTROINTESTINAL Hx Gastritis: Yes Hx Pancreatitis: Yes - GENITOURINARY/GYNECOLOGICAL Hx Genitourinary Disorders: No Hx Sexually Transmitted Disorders: No - PSYCHIATRIC Hx Anxiety: Yes Hx Depression: Yes Hx Substance Use: No - SURGICAL HISTORY Hx Surgeries: Yes Hx Eye Surgery: Yes ([facility]. Cataract Extraction 2013) Other/Comment: "head injury" hx. "implanted loop recorder" - ANESTHESIA Hx Anesthesia: Yes Hx Anesthesia Reactions: No Hx Malignant Hyperthermia: No Meds Allergies/Adverse Reactions: Allergies Allergy/AdvReac Type Severity Reaction Status Date / Time Iodinated Contrast- Oral and Allergy Severe SWELLING Verified 02/19/18 17:52 IV Dye shellfish derived Allergy Intermediate RASH Verified 02/19/18 17:52 milk AdvReac Intermediate DIARRHEA Verified 02/19/18 17:52 - Medications Medications: Current Medications Aspirin (Ecotrin) 81 mg PO QAM [facility] Last Admin: 03/16/18 09:50 Dose: 81 mg Clonidine HCl (Catapres) 0.1 mg PO Q4H PRN PRN Reason: Symptoms of alcohol withdrawl Enoxaparin Sodium (Lovenox) 40 mg SC DAILY [facility] Folic Acid (Folic Acid) 1 mg PO DAILY [facility] Last Admin: 03/16/18 09:49 Dose: 1 mg Lorazepam (Ativan) 1 mg PO Q6 PRN PRN Reason: Symptoms of alcohol withdrawl Lorazepam (Ativan) 1 mg PO Q4 [facility] PRN Reason: Taper Stop: 03/20/18 14:59 Last Admin: 03/16/18 12:08 Dose: 1 mg Losartan Potassium (Cozaar) 25 mg PO DAILY [facility] Last Admin: 03/16/18 09:49 Dose: 25 mg Pantoprazole Sodium (Protonix Ec Tab) 40 mg PO DAILY [facility] Last Admin: 03/16/18 09:50 Dose: 40 mg Thiamine HCl (Vitamin B1 Tab) 100 mg PO DAILY [facility] Last Admin: 03/16/18 09:50 Dose: 100 mg Tramadol HCl (Ultram) 50 mg PO Q6 PRN PRN Reason: Pain, moderate (4-7) Last Admin: 03/16/18 12:11 Dose: 50 mg Trazodone HCl (Desyrel) 50 mg PO HS PRN PRN Reason: Insomnia Physical Exam - Constitutional Appears: Well, Non-toxic - Head Exam Head Exam: ATRAUMATIC, NORMAL INSPECTION - Eye Exam Eye Exam: PERRL. absent: Scleral icterus - ENT Exam ENT Exam: Mucous Membranes Dry, Normal Exam - Neck Exam Neck exam: Positive for: Full Rom. Negative for: Lymphadenopathy - Respiratory Exam Respiratory Exam: Clear to Auscultation Bilateral, NORMAL BREATHING PATTERN - Cardiovascular Exam Cardiovascular Exam: REGULAR RHYTHM, RRR, +S1, +S2, Systolic Murmur. absent: JVD - GI/Abdominal Exam GI & Abdominal Exam: Normal Bowel Sounds. absent: Organomegaly - Neurological Exam Neurological exam: CN II-XII Intact, Oriented x3 - Psychiatric Exam Psychiatric exam: Normal Affect, Normal Mood Results - Vital Signs Recent Vital Signs: Last Vital Signs Temp 97.9 F 03/16/18 07:05 Pulse 74 03/16/18 07:10 Resp 20 03/16/18 07:05 BP 109/71 03/16/18 07:05 Pulse Ox 97 03/16/18 07:05 - Labs Result Diagrams: 03/14/18 17:55 03/14/18 17:55 - EKG Data EKG Interpreted by: Myself EKG shows normal: Sinus rhythm Rate: Normal - Imaging and Cardiology Chest x-ray Status: Image reviewed by me (No infiltrates) Assessment & Plan - Assessment and Plan (Free Text) Assessment: 62 year old man with syncope likeley a vasodepressor mechanism, Agree with IV Fluids ETOH abuse discussed abstinence, needs benzo taper if there is evidence of withdrawal HTN is chronic and stable on current meds Anemia likely due to poor nutrition, consider iron studies - Date & Time Date: 03/15/18 Time: 14:00
--- NOTE | 2018-03-16 17:13 | CP.PCM.PN ---
Subjective - Date & Time of Evaluation Date of Evaluation: 03/16/18 Time of Evaluation: 09:20 - Subjective Subjective: clinically same Objective - Vital Signs/Intake and Output Vital Signs (last 24 hours): Temp Pulse Resp BP Pulse Ox 97.8 F 81 20 106/71 96 03/16/18 16:48 03/16/18 16:48 03/16/18 16:48 03/16/18 16:48 03/16/18 16:48 Intake and Output: 03/16/18 03/16/18 06:59 18:59 Output Total 200 Balance -200 - Medications Medications: Current Medications Aspirin (Ecotrin) 81 mg PO QAM [facility] Last Admin: 03/16/18 09:50 Dose: 81 mg Clonidine HCl (Catapres) 0.1 mg PO Q4H PRN PRN Reason: Symptoms of alcohol withdrawl Enoxaparin Sodium (Lovenox) 40 mg SC DAILY [facility] Folic Acid (Folic Acid) 1 mg PO DAILY [facility] Last Admin: 03/16/18 09:49 Dose: 1 mg Lorazepam (Ativan) 1 mg PO Q6 PRN PRN Reason: Symptoms of alcohol withdrawl Lorazepam (Ativan) 1 mg PO Q6 [facility] PRN Reason: Taper Stop: 03/20/18 14:59 Last Admin: 03/16/18 12:08 Dose: 1 mg Losartan Potassium (Cozaar) 25 mg PO DAILY [facility] Last Admin: 03/16/18 09:49 Dose: 25 mg Pantoprazole Sodium (Protonix Ec Tab) 40 mg PO DAILY [facility] Last Admin: 03/16/18 09:50 Dose: 40 mg Thiamine HCl (Vitamin B1 Tab) 100 mg PO DAILY [facility] Last Admin: 03/16/18 09:50 Dose: 100 mg Tramadol HCl (Ultram) 50 mg PO Q6 PRN PRN Reason: Pain, moderate (4-7) Last Admin: 03/16/18 12:11 Dose: 50 mg Trazodone HCl (Desyrel) 50 mg PO HS PRN PRN Reason: Insomnia - Labs Labs: 03/14/18 17:55 03/14/18 17:55 - Constitutional Appears: Well - Head Exam Head Exam: ATRAUMATIC, NORMAL INSPECTION, NORMOCEPHALIC - Eye Exam Eye Exam: EOMI, Normal appearance, PERRL Pupil Exam: NORMAL ACCOMODATION, PERRL - ENT Exam ENT Exam: Mucous Membranes Moist, Normal Exam - Neck Exam Neck Exam: Full ROM, Normal Inspection. absent: Lymphadenopathy - Respiratory Exam Respiratory Exam: Decreased Breath Sounds - Cardiovascular Exam Cardiovascular Exam: REGULAR RHYTHM, +S1, +S2 - GI/Abdominal Exam GI & Abdominal Exam: Soft, Diminished Bowel Sounds - Rectal Exam Rectal Exam: Deferred
[2018-03-16] MEDS: Morphine 4 MG/ML VIAL IVP PRN (19:55)
[2018-03-17 06:22] LABS: HEMOGLOBIN 8.3 g/dL (12.0-18.0); MEAN CELL VOLUME 95.3 fL (80.0-94.0); MEAN CORPUSCULAR HEMOGLOBIN 32.1 pg (27.0-31.0); MEAN CORPUSCULAR HGB CONC 33.7 g/dL (33.0-37.0); MEAN PLATELET VOLUME 9.7 fL (7.2-11.7); RBC 2.57 Mil/uL (4.40-5.90); RED CELL DISTRIBUTION WIDTH 15.8 % (11.5-14.5); WHITE BLOOD COUNT 2.5 K/uL (4.8-10.8)
[2018-03-17 06:41] LABS: ALB/GLOB RATIO 1.2 (1.0-2.1); ALT/SGPT 35 U/L (21-72); AST/SGOT 89 U/L (17-59); BLOOD UREA NITROGEN 11 mg/dL (9-20); CALCIUM 8.9 mg/dl (8.6-10.4); GFR AFRICAN-AMERICAN > 60; GFR NON-AFRICAN AMERICAN > 60
--- NOTE | 2018-03-17 08:02 | CP.PCM.PN ---
Subjective - Date & Time of Evaluation Date of Evaluation: 03/17/18 Time of Evaluation: 07:25 - Subjective Subjective: PGY3 Resident - Medicine Progress Note This 62 year old Male with PMHx of ETOH abuse and pancreatitis - presents c/o an episode of syncope on 03/14 after consuming several shots with dinner. He was eating with his family, when he stood up, felt dizzy, and passed out. He remembers bracing himself on the chair and was told that his daughter caught him. He denies head trauma. He reports that a similar episode happened 2 years ago, also while drinking. Earlier in the morning on 03/14, he awoke with mild chest discomfort and abdominal discomfort with one episode of n/v. At time of admission, he denies f/c, headache, dizziness, seizure like activity. Patient seen and examined at bedside. No acute distress. No overnight events. He states he feels better with treatment, but still has mild LLQ abdominal pain 3/10. Patient has not had a BM in 3 days. States his last colonoscopy was Oct 2017, but he did not followup for the results. Denies fevers, chills, tremors, n /v, diarrhea, or any additional acute complaints. Objective - Vital Signs/Intake and Output Vital Signs (last 24 hours): Temp Pulse Resp BP Pulse Ox 97.9 F 86 20 102/63 97 03/17/18 07:05 03/17/18 07:40 03/17/18 07:05 03/17/18 07:05 03/17/18 07:05 Intake and Output: 03/17/18 03/17/18 06:59 18:59 Output Total 300 Balance -300 - Medications Medications: Current Medications Aspirin (Ecotrin) 81 mg PO QAM [facility] Last Admin: 03/16/18 09:50 Dose: 81 mg Clonidine HCl (Catapres) 0.1 mg PO Q4H PRN PRN Reason: Symptoms of alcohol withdrawl Enoxaparin Sodium (Lovenox) 40 mg SC DAILY [facility] Folic Acid (Folic Acid) 1 mg PO DAILY [facility] Last Admin: 03/16/18 09:49 Dose: 1 mg Lorazepam (Ativan) 1 mg PO Q6 PRN PRN Reason: Symptoms of alcohol withdrawl Lorazepam (Ativan) 1 mg PO Q6 [facility] PRN Reason: Taper Stop: 03/20/18 14:59 Last Admin: 03/17/18 05:42 Dose: 1 mg Losartan Potassium (Cozaar) 25 mg PO DAILY [facility] Last Admin: 03/16/18 09:49 Dose: 25 mg Morphine Sulfate (Morphine) 4 mg IVP Q6H PRN PRN Reason: Pain, severe (8-10) Last Admin: 03/16/18 19:55 Dose: 4 mg Pantoprazole Sodium (Protonix Ec Tab) 40 mg PO DAILY [facility] Last Admin: 03/16/18 09:50 Dose: 40 mg Thiamine HCl (Vitamin B1 Tab) 100 mg PO DAILY [facility] Last Admin: 03/16/18 09:50 Dose: 100 mg Tramadol HCl (Ultram) 50 mg PO Q6 PRN PRN Reason: Pain, moderate (4-7) Last Admin: 03/17/18 05:42 Dose: 50 mg Trazodone HCl (Desyrel) 50 mg PO HS PRN PRN Reason: Insomnia - Labs Labs: 03/17/18 06:13 03/17/18 06:13 - Additional Findings Additional findings: - Constitutional Appears: Well, Non-toxic - Head Exam Head Exam: ATRAUMATIC, NORMAL INSPECTION - Eye Exam Eye Exam: PERRL. absent: Scleral icterus - ENT Exam ENT Exam: Mucous Membranes Dry, Normal Exam - Neck Exam Neck exam: Positive for: Full Rom. Negative for: Lymphadenopathy - Respiratory Exam Respiratory Exam: Clear to Auscultation Bilateral, NORMAL BREATHING PATTERN - Cardiovascular Exam Cardiovascular Exam: REGULAR RHYTHM, RRR, +S1, +S2, Systolic Murmur. absent: JVD - GI/Abdominal Exam GI & Abdominal Exam: Decreased Bowel Sounds, Tenderness (LLQ). absent: Organomegaly - Neurological Exam Neurological exam: CN II-XII Intact, Oriented x3 - Psychiatric Exam Psychiatric exam: Normal Affect, Normal Mood Assessment and Plan - Assessment and Plan (Free Text) Assessment: Alcohol Abuse 03/17: patient is comfortable, no tremors, no asterixis, no n/v. Tolerating diet. - Psych consult placed to Dr. Brennan, f/u recs -CBT, Psychoeducation -Ativan) 1 mg PO Q6 PRN -Ativan) 1 mg PO Q6 [facility] (taper) -Discontinue Librium -Folic acid/thiamine/multivitamin Catapres) 0.1 mg PO Q4H PRN Chest discomfort f/u CT chest w/o contrast - if negative, pt may be discharged per Dr. Silveira CXR negative EKG NSR, 80bpm, no ST changes TOO negative Constipation - No BM since 03/14 - start colace 100mg PO TID Abdominal pain - LLQ abdominal pain 12/05, likely due to constipation - Morphine) 4 mg IVP Q6H PRN - Ultram) 50 mg PO Q6 PRN Hypertension Cozaar) 25 mg PO DAILY [facility] Insomnia Desyrel) 50 mg PO HS PRN Prophylaxis Lovenox) 40 mg SC DAILY [facility] Ecotrin) 81 mg PO QAM [facility] Protonix Ec Tab) 40 mg PO DAILY [facility] Disposition: f/u CT chest w/o contrast - if negative, pt may be discharged per Dr. Silveira Case discussed with attending. All medical management as per Dr. Bebeto Silveira.
[2018-03-17] MEDS: Pantoprazole 40 mg EC Tab PO SCH (09:46)
--- NOTE | 2018-03-17 16:56 | CT ---
PROCEDURE: CT chest dated 03/17/2018 HISTORY: Chest discomfort COMPARISON: None. TECHNIQUE: Contiguous helical/transaxial images were obtained through the chest without intravenous contrast enhancement. Sagittal and coronal reconstructions were performed. Radiation dose (DLP): 343.36 mGy-cm. This CT exam was performed using one or more of the following dose reduction techniques: Automated exposure control, adjustment of the mA and/or kV according to patient size, and/or use of iterative reconstruction technique. FINDINGS: LUNGS: Mild passive atelectasis both posterior lower lung zones left greater than right. In addition, there appears be some mild scarring changes left lung base as well. No focal consolidation. . Small bleb right medial lung base MEDIASTINUM: Heart size is upper limits of normal. . No significant pericardial effusion. Ascending thoracic aorta is mildly dilated measuring approximately 3.9 cm. Descending thoracic aorta measures 3.0 cm. Partially calcified atherosclerotic plaque seen along the lateral and inferior surface of the transverse portion of aortic arch. Pulmonary trunk measures 3.1 cm. . Central airways midline and patent. No large central endoluminal lesions. Moderate amount of air seen in the proximal and mid esophagus with fluid and air seen in the distal esophagus. Findings could be secondary to reflux. Clinic correlation recommended. There may also be a small hiatal hernia. PLEURA: No pleural fluid. No pneumothorax. BONES: Minor multilevel degenerative spondylosis of the thoracic and upper lumbar spine. There are no acute compression fractures nor retropulsed fragments. UPPER ABDOMEN: Grossly unremarkable. OTHER FINDINGS: Minor changes of bilateral gynecomastia. IMPRESSION: Mild passive/dependent type atelectasis both posterior lower lung zones left greater than right. Mild scarring changes left lung base. Mild mild dilatation ascending thoracic aorta as detailed above. Moderate amount of fluid within the distal esophagus and air proximally. Findings suggest reflux. Clinical correlation recommended.
[2018-03-17 19:59] LABS: IRON 40 ug/dL (49-181)
[2018-03-17 20:08] LABS: % IRON SATURATION 14 (20-55); TOTAL IRON BINDING CAPACITY 274 ug/dL (250-450)
--- NOTE | 2018-03-17 20:22 | CP.PCM.PN ---
Subjective - Date & Time of Evaluation Date of Evaluation: 03/17/18 Time of Evaluation: 09:20 - Subjective Subjective: clinically same Objective - Vital Signs/Intake and Output Vital Signs (last 24 hours): Temp Pulse Resp BP Pulse Ox 98.9 F 100 H 18 115/78 98 03/17/18 16:00 03/17/18 16:00 03/17/18 16:00 03/17/18 16:00 03/17/18 16:00 Intake and Output: 03/17/18 03/18/18 18:59 06:59 Intake Total 400 Balance 400 - Medications Medications: Current Medications Aspirin (Ecotrin) 81 mg PO QAM [facility] Last Admin: 03/17/18 10:00 Dose: 81 mg Clonidine HCl (Catapres) 0.1 mg PO Q4H PRN PRN Reason: Symptoms of alcohol withdrawl Docusate Sodium (Colace) 100 mg PO TID [facility] Last Admin: 03/17/18 18:06 Dose: 100 mg Enoxaparin Sodium (Lovenox) 40 mg SC DAILY [facility] Folic Acid (Folic Acid) 1 mg PO DAILY [facility] Last Admin: 03/17/18 09:46 Dose: 1 mg Lorazepam (Ativan) 1 mg PO Q6 PRN PRN Reason: Symptoms of alcohol withdrawl Lorazepam (Ativan) 1 mg PO Q6 [facility] PRN Reason: Taper Stop: 03/20/18 14:59 Last Admin: 03/17/18 18:06 Dose: 1 mg Losartan Potassium (Cozaar) 25 mg PO DAILY [facility] Last Admin: 03/17/18 09:47 Dose: Not Given Morphine Sulfate (Morphine) 4 mg IVP Q6H PRN PRN Reason: Pain, severe (8-10) Last Admin: 03/16/18 19:55 Dose: 4 mg Ondansetron HCl (Zofran Inj) 4 mg IVP Q6 PRN PRN Reason: Nausea/Vomiting Last Admin: 03/17/18 19:48 Dose: 4 mg Pantoprazole Sodium (Protonix Ec Tab) 40 mg PO DAILY [facility] Last Admin: 03/17/18 09:46 Dose: 40 mg Thiamine HCl (Vitamin B1 Tab) 100 mg PO DAILY [facility] Last Admin: 03/17/18 09:46 Dose: 100 mg Tramadol HCl (Ultram) 50 mg PO Q6 PRN PRN Reason: Pain, moderate (4-7) Last Admin: 03/17/18 13:25 Dose: 50 mg Trazodone HCl (Desyrel) 50 mg PO HS PRN PRN Reason: Insomnia - Labs Labs: 03/17/18 06:13 03/17/18 06:13 - Constitutional Appears: Well - Head Exam Head Exam: ATRAUMATIC, NORMAL INSPECTION, NORMOCEPHALIC - Eye Exam Eye Exam: EOMI, Normal appearance, PERRL Pupil Exam: NORMAL ACCOMODATION, PERRL - ENT Exam ENT Exam: Mucous Membranes Moist, Normal Exam - Neck Exam Neck Exam: Full ROM, Normal Inspection. absent: Lymphadenopathy - Respiratory Exam Respiratory Exam: Decreased Breath Sounds - Cardiovascular Exam Cardiovascular Exam: REGULAR RHYTHM, +S1, +S2 - GI/Abdominal Exam GI & Abdominal Exam: Soft, Diminished Bowel Sounds - Rectal Exam Rectal Exam: Deferred
[2018-03-18] MEDS: Morphine 4 MG/ML VIAL IVP PRN ×3 (02:37→17:34)
--- NOTE | 2018-03-18 07:17 | CP.PCM.PN ---
Subjective - Date & Time of Evaluation Date of Evaluation: 03/18/18 Time of Evaluation: 08:00 - Subjective Subjective: PGY3 Resident - Medicine Progress Note for Dr. Bebeto Silveira: Patient seen and examined at bedside. No acute distress. He reports that he was vomiting all night but does not think there was blood in the vomit. He was able to eat breakfast this morning and has not vomiting since eating. He states that he has some nausea. He reports that he still feels weak and could not walk far with PT. He admits to some pain on his side. Denies fevers, chills, tremors, diarrhea, chest pain, SOB or any additional acute complaints. Patient reports that he had a colonoscopy and endoscopy done a couple months ago. He states he thought those were "abnormal" but does not remember the results. Objective - Vital Signs/Intake and Output Vital Signs (last 24 hours): Temp Pulse Resp BP Pulse Ox 99.2 F 93 H 20 93/63 L 96 03/18/18 00:27 03/18/18 01:00 03/18/18 00:27 03/18/18 00:27 03/18/18 00:27 Intake and Output: 03/18/18 03/18/18 06:59 18:59 Intake Total 720 Balance 720 - Medications Medications: Current Medications Aspirin (Ecotrin) 81 mg PO QAM [facility] Last Admin: 03/17/18 10:00 Dose: 81 mg Clonidine HCl (Catapres) 0.1 mg PO Q4H PRN PRN Reason: Symptoms of alcohol withdrawl Docusate Sodium (Colace) 100 mg PO TID [facility] Last Admin: 03/17/18 18:06 Dose: 100 mg Enoxaparin Sodium (Lovenox) 40 mg SC DAILY [facility] Folic Acid (Folic Acid) 1 mg PO DAILY [facility] Last Admin: 03/17/18 09:46 Dose: 1 mg Lorazepam (Ativan) 1 mg PO Q6 PRN PRN Reason: Symptoms of alcohol withdrawl Last Admin: 03/17/18 20:54 Dose: 1 mg Lorazepam (Ativan) 1 mg PO Q6 [facility] PRN Reason: Taper Stop: 03/20/18 14:59 Last Admin: 03/18/18 07:15 Dose: 1 mg Losartan Potassium (Cozaar) 25 mg PO DAILY [facility] Last Admin: 03/17/18 09:47 Dose: Not Given Morphine Sulfate (Morphine) 4 mg IVP Q6H PRN PRN Reason: Pain, severe (8-10) Last Admin: 03/18/18 02:37 Dose: 4 mg Ondansetron HCl (Zofran Inj) 4 mg IVP Q6 PRN PRN Reason: Nausea/Vomiting Last Admin: 03/17/18 19:48 Dose: 4 mg Pantoprazole Sodium (Protonix Ec Tab) 40 mg PO DAILY [facility] Last Admin: 03/17/18 09:46 Dose: 40 mg Thiamine HCl (Vitamin B1 Tab) 100 mg PO DAILY [facility] Last Admin: 03/17/18 09:46 Dose: 100 mg Tramadol HCl (Ultram) 50 mg PO Q6 PRN PRN Reason: Pain, moderate (4-7) Last Admin: 03/17/18 22:28 Dose: 50 mg Trazodone HCl (Desyrel) 50 mg PO HS PRN PRN Reason: Insomnia - Labs Labs: 03/17/18 06:13 03/17/18 06:13 - Constitutional Appears: Non-toxic, No Acute Distress - Head Exam Head Exam: NORMAL INSPECTION - Eye Exam Eye Exam: EOMI - ENT Exam ENT Exam: Mucous Membranes Moist - Respiratory Exam Respiratory Exam: Clear to Ausculation Bilateral, NORMAL BREATHING PATTERN - Cardiovascular Exam Cardiovascular Exam: REGULAR RHYTHM, +S1, +S2 - GI/Abdominal Exam GI & Abdominal Exam: Soft, Normal Bowel Sounds. absent: Distended, Firm, Guarding, Tenderness - Back Exam Back Exam: NORMAL INSPECTION - Neurological Exam Neurological Exam: Alert, Awake, CN II-XII Intact, Normal Gait, Oriented x3 Neuro motor strength exam: Left Upper Extremity: 5, Right Upper Extremity: 5, Left Lower Extremity: 5, Right Lower Extremity: 5 - Psychiatric Exam Psychiatric exam: Normal Affect, Normal Mood Assessment and Plan - Assessment and Plan (Free Text) Assessment: Alcohol Abuse 03/17: patient is comfortable, no tremors, no asterixis, no n/v. Tolerating diet. - Psych consult placed to Dr. Brennan, f/u recs -CBT, Psychoeducation -Ativan) 1 mg PO Q6 PRN -Ativan) 1 mg PO Q6 [facility] (taper) -Discontinue Librium -Folic acid/thiamine/multivitamin - Catapres) 0.1 mg PO Q4H PRN Chest discomfort CT chest 03/17 - mild atelectasis, mild scarring, mild dilatation of the ascending aorta, reflux evidence of CXR negative EKG NSR, 80bpm, no ST changes TOO negative Anemia -Hgb 7.9 - Will give one unit of PRBC - consent signed and placed in chart -f/u retic count -IV Fe 125mg IVPB daily -Fe 40, TIBC 274, 14% sat, Ferritin 2630 -likely 2/2 alcohol abuse / malnutrition Sycope -Cardio consult, Dr. Novak, - syncope likely due to a vasodepressor mechanism -continue IV fluids Fecal occult +, needing transfusion GI consulted, Dr. Farooq Patient with recent colonoscopy Constipation - No BM for 3 days - start colace 100mg PO TID Abdominal pain - LLQ abdominal pain /, likely due to constipation - Morphine) 4 mg IVP Q6H PRN - Ultram) 50 mg PO Q6 PRN Hypertension Controlled Cozaar) 25 mg PO DAILY [facility] Insomnia Desyrel) 50 mg PO HS PRN Prophylaxis Lovenox) 40 mg SC DAILY [facility] Ecotrin) 81 mg PO QAM [facility] Protonix Ec Tab) 40 mg PO DAILY [facility] Case discussed with attending. All medical management as per Dr. Bebeto Silveira.
[2018-03-18 07:42] LABS: BASO % 0.5 % (0.0-2.0); EOS # 0.1 K/uL (0.0-0.7); EOS % 1.3 % (0.0-4.0); HEMOGLOBIN 7.9 g/dL (12.0-18.0); LYMPH # 0.5 K/uL (1.0-4.3); LYMPH % 10.4 % (20.0-40.0); MEAN CORPUSCULAR HEMOGLOBIN 32.6 pg (27.0-31.0); MEAN PLATELET VOLUME 10.2 fL (7.2-11.7); MONO # 0.4 K/uL (0.0-0.8); MONO % 8.1 % (0.0-10.0); NEUT # 3.8 K/uL (1.8-7.0); NEUT % 79.7 % (50.0-75.0); NRBC % 0.2 % (0.0-2.0); RBC 2.44 Mil/uL (4.40-5.90); RED CELL DISTRIBUTION WIDTH 15.8 % (11.5-14.5)
[2018-03-18 07:45] LABS: WHITE BLOOD COUNT 4.8 K/uL (4.8-10.8)
[2018-03-18 07:48] LABS: ALB/GLOB RATIO 1.3 (1.0-2.1); BLOOD UREA NITROGEN 11 mg/dL (9-20); CALCIUM 8.8 mg/dl (8.6-10.4); GFR AFRICAN-AMERICAN > 60; GFR NON-AFRICAN AMERICAN > 60
[2018-03-18 07:58] LABS: ALT/SGPT 81 U/L (21-72); AST/SGOT 259 U/L (17-59)
[2018-03-18] MEDS: Pantoprazole 40 mg EC Tab PO SCH (09:09)
[2018-03-18] MEDS: Ferric Sodium Gluconat Complex 62.5 mg/5 ml Vial IVPB SCH (11:13)
[2018-03-18 14:09] LABS: INR 1.3; PROTHROMBIN TIME 14.1 SECONDS (9.7-12.2)
[2018-03-18] MEDS ORDERED: Phytonadione 10 mg/ml Inj (Adult) SC STA (17:45)
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
[2018-03-19] MEDS: Morphine 4 MG/ML VIAL IVP PRN ×3 (05:59→19:55)
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
[2018-03-19 08:00] LABS: INR 1.2; PROTHROMBIN TIME 13.5 SECONDS (9.7-12.2)
[2018-03-19 08:04] LABS: BASO % 0.6 % (0.0-2.0); EOS # 0.1 K/uL (0.0-0.7); EOS % 2.9 % (0.0-4.0); HEMOGLOBIN 9.3 g/dL (12.0-18.0); LYMPH # 0.8 K/uL (1.0-4.3); LYMPH % 16.8 % (20.0-40.0); MEAN CELL VOLUME 94.5 fL (80.0-94.0); MEAN CORPUSCULAR HEMOGLOBIN 32.1 pg (27.0-31.0); MEAN CORPUSCULAR HGB CONC 33.9 g/dL (33.0-37.0); MEAN PLATELET VOLUME 10.3 fL (7.2-11.7); MONO # 0.7 K/uL (0.0-0.8); NEUT % 63.7 % (50.0-75.0); RBC 2.9 Mil/uL (4.40-5.90); WHITE BLOOD COUNT 4.7 K/uL (4.8-10.8)
[2018-03-19 08:28] LABS: ALB/GLOB RATIO 1.3 (1.0-2.1); ALBUMIN 4.3 g/dL (3.5-5.0); ALT/SGPT 70 U/L (21-72); AST/SGOT 157 U/L (17-59); BLOOD UREA NITROGEN 13 mg/dL (9-20); CALCIUM 8.6 mg/dl (8.6-10.4); GFR AFRICAN-AMERICAN > 60; GFR NON-AFRICAN AMERICAN > 60
[2018-03-19] MEDS: Ferric Sodium Gluconat Complex 62.5 mg/5 ml Vial IVPB SCH (10:01)
[2018-03-19] MEDS: Pantoprazole 40 mg EC Tab PO SCH (10:11)
[2018-03-19] MEDS: Magnesium Sulfate 1 gm in D5W 1 GM/100 ML BAG IVPB SCH ×4 (10:28→16:16)
--- NOTE | 2018-03-19 12:42 | CP.PCM.PN ---
Subjective - Date & Time of Evaluation Date of Evaluation: 03/19/18 Time of Evaluation: 07:20 - Subjective Subjective: clinically same Objective - Vital Signs/Intake and Output Vital Signs (last 24 hours): Temp Pulse Resp BP Pulse Ox 97.9 F 71 20 107/69 95 03/19/18 08:00 03/19/18 08:00 03/19/18 08:00 03/19/18 08:00 03/19/18 08:00 - Medications Medications: Current Medications Aspirin (Ecotrin) 81 mg PO QAM [facility] Last Admin: 03/19/18 10:15 Dose: 81 mg Clonidine HCl (Catapres) 0.1 mg PO Q4H PRN PRN Reason: Symptoms of alcohol withdrawl Docusate Sodium (Colace) 100 mg PO TID [facility] Last Admin: 03/19/18 10:10 Dose: 100 mg Enoxaparin Sodium (Lovenox) 40 mg SC DAILY [facility] Ferric Sodium Gluconate Complex (Ferrlecit) 125 mg IVPB DAILY [facility] Stop: 03/26/18 10:31 Last Admin: 03/19/18 10:01 Dose: 125 mg Folic Acid (Folic Acid) 1 mg PO DAILY [facility] Last Admin: 03/19/18 10:07 Dose: 1 mg Magnesium Sulfate/Dextrose (Magnesium Sulfate 1 Gm/100 Ml D5w) 1 gm in 100 mls @ 200 mls/hr IVPB Q30M [facility] Stop: 03/19/18 15:29 Lorazepam (Ativan) 1 mg PO Q6 PRN PRN Reason: Symptoms of alcohol withdrawl Last Admin: 03/17/18 20:54 Dose: 1 mg Lorazepam (Ativan) 1 mg PO Q8 [facility] PRN Reason: Taper Stop: 03/20/18 14:59 Last Admin: 03/19/18 05:57 Dose: 1 mg Losartan Potassium (Cozaar) 25 mg PO DAILY [facility] Last Admin: 03/19/18 10:10 Dose: 25 mg Morphine Sulfate (Morphine) 4 mg IVP Q6H PRN PRN Reason: Pain, severe (8-10) Last Admin: 03/19/18 12:08 Dose: 4 mg Ondansetron HCl (Zofran Inj) 4 mg IVP Q6 PRN PRN Reason: Nausea/Vomiting Last Admin: 03/17/18 19:48 Dose: 4 mg Pantoprazole Sodium (Protonix Ec Tab) 40 mg PO DAILY [facility] Last Admin: 03/19/18 10:11 Dose: 40 mg Thiamine HCl (Vitamin B1 Tab) 100 mg PO DAILY [facility] Last Admin: 03/19/18 10:11 Dose: 100 mg Tramadol HCl (Ultram) 50 mg PO Q6 PRN PRN Reason: Pain, moderate (4-7) Last Admin: 03/18/18 15:54 Dose: 50 mg Trazodone HCl (Desyrel) 50 mg PO HS PRN PRN Reason: Insomnia - Labs Labs: 03/19/18 07:48 03/19/18 07:48 PT 13.5 SECONDS (9.7-12.2) H 03/19/18 07:48 INR 1.2 03/19/18 07:48 - Constitutional Appears: Well - Head Exam Head Exam: ATRAUMATIC, NORMAL INSPECTION, NORMOCEPHALIC - Eye Exam Eye Exam: EOMI, Normal appearance, PERRL Pupil Exam: NORMAL ACCOMODATION, PERRL - ENT Exam ENT Exam: Mucous Membranes Moist, Normal Exam - Neck Exam Neck Exam: Full ROM, Normal Inspection. absent: Lymphadenopathy - Respiratory Exam Respiratory Exam: Decreased Breath Sounds - Cardiovascular Exam Cardiovascular Exam: REGULAR RHYTHM, +S1, +S2 - GI/Abdominal Exam GI & Abdominal Exam: Soft, Diminished Bowel Sounds - Rectal Exam Rectal Exam: Deferred Assessment and Plan - Assessment and Plan (Free Text) Plan: Alcohol Abuse 03/18: patient is comfortable, no tremors, no asterixis, no n/v. NPO (as of 03/19) - Psych consult placed to Dr. Brennan, f/u recs -CBT, Psychoeducation -Ativan) 1 mg PO Q6 PRN -Ativan) 1 mg PO Q6 [facility] (taper) -Discontinue Librium -Folic acid/thiamine/multivitamin - Catapres) 0.1 mg PO Q4H PRN Chest discomfort CT chest 03/17 - mild atelectasis, mild scarring, mild dilatation of the ascending aorta, reflux evidence of Incentive spirometer added on 03/19 CXR negative EKG NSR, 80bpm, no ST changes TOO negative Anemia 03/19: Hgb improved to 9.3 s/p 1u PRBC -Hgb 7.9 - Will give one unit of PRBC - consent signed and placed in chart -IV Fe 125mg IVPB daily -Fe 40, TIBC 274, 14% sat, Ferritin 2630, Retic count 1.9 -likely 2/2 alcohol abuse / malnutrition Sycope -Cardio consult, Dr. Novak, - syncope likely due to a vasodepressor mechanism -continue IV fluids Fecal occult +, needing transfusion 03/18: GI consulted, Dr. Farooq Patient with recent colonoscopy Constipation - No BM for 3 days - start colace 100mg PO TID Abdominal pain - LLQ abdominal pain 12/05, likely due to constipation - Morphine) 4 mg IVP Q6H PRN - Ultram) 50 mg PO Q6 PRN Hypertension Controlled Cozaar) 25 mg PO DAILY [facility] Insomnia Desyrel) 50 mg PO HS PRN Prophylaxis Lovenox) 40 mg SC DAILY [facility] Ecotrin) 81 mg PO QAM [facility] Protonix Ec Tab) 40 mg PO DAILY [facility]
[2018-03-19] MEDS ORDERED: Propofol 10 mg/ml Inj (20 ML) ONE (14:00)
[2018-03-19] MEDS ORDERED: Lidocaine Hydrochloride 5 ML INJ ONE (14:05)
[2018-03-20] MEDS: Morphine 4 MG/ML VIAL IVP PRN ×3 (00:08→17:46)
--- NOTE | 2018-03-20 10:03 | PN ---
DATE: 03/20/2018 LOCATION: 352, bed B. HISTORY OF PRESENT ILLNESS: This 62-year-old male seen and examined in rounds, post upper endoscopy, appeared to be awake, alert, and oriented without reported active bleeding, tolerating liquid intake. The entire chart is reviewed including, but not limited to the most recent lab and radiology study results, current and the previous medication list, current and the previous medical events. Case discussed with the staff at length. Most recent lab results showed low hemoglobin and hematocrit with low white blood cells with thrombocytopenia of 104. PT 13.5, magnesium 1.0, blood glucose level 113 with AST 157, but normal the rest of the liver function tests, secondary to alcoholism. PHYSICAL EXAMINATION: GENERAL: A 62-year-old male, afebrile with pulse of 66, respiratory rate 20 to 22, blood pressure of 122/74. HEENT: Showed pale dry oral mucoid membrane. Nonicteric sclerae. LUNGS: Few scattered crepitation. Decreased air entry at bases. HEART: Positive S1 and S2. ABDOMEN: Soft. Bowel sounds are present. No mass or organomegaly. No rebound tenderness or guarding. RECTAL: The patient refused. EXTREMITIES: Without edema, clubbing, or cyanosis. NEUROLOGIC: No reported new neurological deficits, sensory or motor. IMPRESSION: 1. Alcoholism with alcoholic liver disease. 2. Peptic ulcer disease by upper endoscopy with reported hematemesis, none this morning. 3. Anemia, most likely secondary to above. 4. Multiple past medical history, including, but not limited to hypertension, recurrent alcohol-induced pancreatitis, osteoarthritis, severe anxiety syndrome with depression, and congestive heart failure. 5. Electrolyte imbalance with severe magnesemia secondary to above. SUGGESTION: 1. Correct any underlying electrolyte imbalance. 2. Carafate p.o. 3. Follow up cancer markers. 4. Further recommendation to follow. Sis Jones MD
[2018-03-20] MEDS: Ferric Sodium Gluconat Complex 62.5 mg/5 ml Vial IVPB SCH (10:47)
[2018-03-20] MEDS: Pantoprazole 40 mg EC Tab PO SCH (10:47)
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
--- NOTE | 2018-03-20 16:39 | US ---
HISTORY: gastritis and hernia COMPARISON: None. TECHNIQUE: Grayscale imaging was performed. FINDINGS: LIVER: Measures 20.1 cm. There is diffuse increased echogenicity of the liver parenchyma. No mass. No intrahepatic bile duct dilatation. GALLBLADDER: There are no gallstones, wall thickening or pericholecystic fluid. The sonographic Almaguer's sign is negative. COMMON BILE DUCT: Measures 5.0 mm. No stones. No dilatation. PANCREAS: Unremarkable as visualized. No mass. No ductal dilatation. RIGHT KIDNEY: Measures 11.2cm. Normal echogenicity. No calculus, mass, or hydronephrosis. LEFT KIDNEY: Measures 10.4cm. Normal echogenicity. No calculus, mass, or hydronephrosis. SPLEEN: Normal in size and contour. No mass. AORTA: No aneurysmal dilatation. IVC: Unremarkable. OTHER FINDINGS: None. IMPRESSION: Mild hepatomegaly. Diffuse increased echogenicity in the liver may reflect hepatic steatosis however parenchymal infectious/ inflammatory etiologies cannot be entirely excluded. Clinical and laboratory correlation is advised. No cholelithiasis or biliary dilatation.
[2018-03-21] MEDS: Morphine 4 MG/ML VIAL IV PRN ×4 (00:31→22:05)
--- NOTE | 2018-03-21 05:42 | CON ---
DATE: 03/18/[address] Jones to Dr. Raeann Silveira. I was called for GI consultation by the primary MD. The patient is seen and fully examined on 03/18/2018. The entire chart is reviewed including, but not limited to the most recent lab and radiology study results, current and the previous medication lists, current and the previous medical events. Case discussed at length with the staff at the time of my GI consultation on 03/18/2018. HISTORY OF PRESENT ILLNESS: This is a 62 years old male, very well-known case from previous admission, was admitted to the hospital through the emergency room due to recurrent episodes of abdominal pain and initially nausea and vomiting at the time of the admission with reported hematemesis subsequently and subsequent drop of hemoglobin and hematocrit, but no reported recent history of chills or fever, actual chest pain, palpitation, or significant shortness of breath. PAST MEDICAL HISTORY: Including but not limited to, 1. GI bleeding. 2. Gastric ulcer with episodes of gastritis and pancreatitis in the past. 3. History of hypertension, congestive heart failure, severe anxiety syndrome with osteoarthritis. 4. Reported history of anemia. 5. Reported history of peripheral edema syndrome of the lower extremities. 6. Alcohol abuse with alcoholism. CURRENT MEDICATIONS: Post-admission medication list was reviewed. ALLERGIES TO MEDICATIONS: UNCLEAR. FAMILY HISTORY: Noncontributory. LABORATORY DATA: Initial blood workup showed low hemoglobin of 8, hematocrit 23.6 with subsequent drop since admission, with thrombocytopenia and low white blood cells with increased BUN of 28, creatinine 2. PHYSICAL EXAMINATION: GENERAL: A 62 years old male. VITAL SIGNS: Afebrile with pulse of 76, respiratory rate 20 to 22, blood pressure of 104/70. HEENT: Showed pale, dry oral mucous membranes. Slight icteric sclerae bilaterally. HEART: Positive S1 and S2. ABDOMEN: Soft with generalized tenderness but mainly in the midepigastric and left lower quadrant areas. No mass or organomegaly. No rebound tenderness or guarding. RECTAL EXAMINATION: The patient refused. EXTREMITIES: Without significant clubbing or cyanosis, but mild lower extremity edematous changes. NEUROLOGIC: No reported focal deficits. Peripheral pulses are present but decreased bilaterally. IMPRESSION: 1. Re-exacerbation of peptic ulcer disease with reported hematemesis, to rule out esophageal varices, rule out gastric versus duodenal ulcer. 2. Anemia most likely secondary to above and/or chronic disease. 3. Alcoholism with alcoholic liver disease by history. 4. Rule out occult gastrointestinal malignancy. 5. To rule out recurrent acute pancreatitis, alcohol induced. 6. Multiple past medical history as mentioned above. SUGGESTIONS: 1. Agree with your plan. 2. Serum lipase and amylase level. 3. Continue proton pump inhibitors with Reglan IV. 4. Carafate liquid 10 mL p.o. three times a day. 5. Endoscopic evaluation of the GI tract when the patient is more stable clinically. 6. Cancer markers including alpha-fetoprotein and CEA. 7. Guaiac all the stools daily x3. 8. Further recommendation to follow. Thank you for letting me to participate in your patient's case management. Sis Jones MD
[2018-03-21] MEDS: Ferric Sodium Gluconat Complex 62.5 mg/5 ml Vial IVPB SCH (08:59)
[2018-03-21] MEDS: Pantoprazole 40 mg EC Tab PO SCH (09:02)
--- NOTE | 2018-03-21 13:40 | PN ---
DATE: 03/21/2018 LOCATION: 363, bed B. SUBJECTIVE: This is a 62-year-old male seen and examined and found with abdominal pain post upper endoscopy, done ultrasound of the abdomen yesterday. Official report is seen, indicative of possible fatty liver with mild hepatomegaly. No reported chest pain, palpitation, significant nausea, or vomiting. Today's lab is still pending. The most recent lab result showed low hemoglobin and hematocrit with thrombocytopenia with increased PT and low magnesium with still increased AST due to alcohol intake. PHYSICAL EXAMINATION: GENERAL: A 62-year-old male. VITAL SIGNS: Afebrile with pulse 66, blood pressure of 120/70, respiratory rate 20 to 22. HEENT: Showed pale, dry oral mucous membranes. Nonicteric sclerae. LUNGS: Revealed scattered crepitation. Decreased air entry at bases. HEART: Positive S1 and S2. ABDOMEN: Soft. Bowel sounds are present with mild generalized tenderness. No mass or organomegaly. No rebound tenderness, no guarding. EXTREMITIES: Without significant clubbing or cyanosis. NEUROLOGIC: The patient appears to be more awake, alert without any reported new neurological deficits, sensory or motor. IMPRESSION: 1. Alcoholism. 2. Peptic ulcer disease with reported hematemesis, with evidence of gastroparesis. 3. Abnormal AST secondary to alcoholism with hepatomegaly and fatty liver. 4. Multiple past medical history including but not limited to hypertension, osteoarthritis, alcohol-induced pancreatitis with congestive heart failure. SUGGESTION: 1. Continue current management. 2. Correct any underlying electrolyte imbalance. 3. Repeat colonoscopy at a.m. Sis Jones MD
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
[2018-03-22] MEDS: Morphine 4 MG/ML VIAL IV PRN ×3 (03:56→21:11)
[2018-03-22] MEDS: Pantoprazole 40 mg EC Tab PO SCH (09:47)
--- NOTE | 2018-03-22 10:01 | CP.PCM.PN ---
Subjective - Date & Time of Evaluation Date of Evaluation: 03/22/18 Time of Evaluation: 08:30 - Subjective Subjective: Medicine progress note for Dr. Silveira's service Patient seen and examined. Patient NPO for endoscopy today. Patient had poor prep on prior study. He reports feeling less lightheaded after 1unit PRBC last week. He denies nausea, vomiting, dark stools, bright red blood per rectum. Patient resting comfortably prior to procedure and has no complaints at this time. Objective - Vital Signs/Intake and Output Vital Signs (last 24 hours): Temp Pulse Resp BP Pulse Ox 98.2 F 64 20 116/73 99 03/22/18 07:42 03/22/18 07:42 03/22/18 07:42 03/22/18 07:42 03/22/18 07:42 Intake and Output: 03/22/18 03/22/18 06:59 18:59 Intake Total 0 Balance 0 - Medications Medications: Current Medications Aspirin (Ecotrin) 81 mg PO QAM [facility] Last Admin: 03/22/18 09:47 Dose: Not Given Clonidine HCl (Catapres) 0.1 mg PO Q4H PRN PRN Reason: Symptoms of alcohol withdrawl Last Admin: 03/20/18 10:47 Dose: 0.1 mg Docusate Sodium (Colace) 100 mg PO TID [facility] Last Admin: 03/22/18 09:46 Dose: Not Given Enoxaparin Sodium (Lovenox) 40 mg SC DAILY [facility] Ferric Sodium Gluconate Complex (Ferrlecit) 125 mg IVPB DAILY [facility] Stop: 03/26/18 10:31 Last Admin: 03/21/18 08:59 Dose: 125 mg Fluconazole (Diflucan) 100 mg PO DAILY [facility] PRN Reason: Protocol Last Admin: 03/22/18 09:47 Dose: Not Given Folic Acid (Folic Acid) 1 mg PO DAILY [facility] Last Admin: 03/22/18 09:47 Dose: Not Given Lorazepam (Ativan) 1 mg PO Q6 PRN PRN Reason: Symptoms of alcohol withdrawl Last Admin: 03/20/18 00:08 Dose: 1 mg Losartan Potassium (Cozaar) 25 mg PO DAILY [facility] Last Admin: 03/21/18 09:02 Dose: 25 mg Metoclopramide HCl (Reglan) 10 mg IVP Q6H [facility] Last Admin: 03/22/18 07:47 Dose: 10 mg Morphine Sulfate (Morphine) 4 mg IV Q6 PRN PRN Reason: Pain, severe (8-10) Last Admin: 03/22/18 03:56 Dose: 4 mg Ondansetron HCl (Zofran Inj) 4 mg IVP Q6 PRN PRN Reason: Nausea/Vomiting Last Admin: 03/17/18 19:48 Dose: 4 mg Pantoprazole Sodium (Protonix Ec Tab) 40 mg PO DAILY [facility] Last Admin: 03/22/18 09:47 Dose: Not Given Thiamine HCl (Vitamin B1 Tab) 100 mg PO DAILY [facility] Last Admin: 03/22/18 09:47 Dose: Not Given Tramadol HCl (Ultram) 50 mg PO Q6 PRN PRN Reason: Pain, moderate (4-7) Last Admin: 03/18/18 15:54 Dose: 50 mg Trazodone HCl (Desyrel) 50 mg PO HS PRN PRN Reason: Insomnia - Labs Labs: 03/19/18 07:48 03/19/18 07:48 PT 13.5 SECONDS (9.7-12.2) H 03/19/18 07:48 INR 1.2 03/19/18 07:48 - Constitutional Appears: No Acute Distress - Head Exam Head Exam: ATRAUMATIC, NORMOCEPHALIC - Eye Exam Eye Exam: EOMI - ENT Exam ENT Exam: Mucous Membranes Moist - Respiratory Exam Respiratory Exam: Clear to Ausculation Bilateral, NORMAL BREATHING PATTERN - Cardiovascular Exam Cardiovascular Exam: +S1, +S2 - GI/Abdominal Exam GI & Abdominal Exam: Soft, Tenderness (mild epigastric), Normal Bowel Sounds - Extremities Exam Extremities Exam: Normal Inspection - Neurological Exam Neurological Exam: Alert, Awake - Skin Skin Exam: Warm Assessment and Plan - Assessment and Plan (Free Text) Assessment: Fecal occult +, needing transfusion occult blood stool positive on 02/15/18 GI consulted, Dr. Valencia Patient to have repeat endoscopy today (03/22) as prior attempt had poor prep Patient with recent colonoscopy Abdominal pain - LLQ abdominal pain 3/10, likely due to constipation - Morphine 4 mg IVP Q6H PRN - Ultram 50 mg PO Q6 PRN -start reglan 10mg IVP q6h and diflucan 100mg PO daily per Dr. Valencia Alcohol Abuse 03/22: patient is comfortable, no tremors, no asterixis, no n/v. NPO this AM for endoscopy Psych consult placed to Dr. Brennan, f/u recs CBT, Psychoeducation Ativan 1 mg PO Q6 PRN discontinue Librium Folic acid/thiamine/multivitamin Catapres 0.1 mg PO Q4H PRN Anemia 03/19: Hgb improved to 9.3 s/p 1u PRBC (03/18) Hgb 7.9- one unit of PRBC transfused- consent signed and placed in chart -IV Fe 125mg IVPB daily -Fe 40, TIBC 274, 14% sat, Ferritin 2630, Retic count 1.9 -likely 2/2 alcohol abuse / malnutrition Electrolyte abnormality Mg 1.0 on 03/19- repleted repeat Mg level today, replete as necessary Chest discomfort resolved CT chest 03/17 - mild atelectasis, mild scarring, mild dilatation of the ascending aorta, reflux evidence of Incentive spirometer added on 03/19 CXR negative EKG NSR, 80bpm, no ST changes TOO negative Sycope -Cardio consult, Dr. Novak, - syncope likely due to a vasodepressor mechanism -continue IV fluids Constipation - No BM for 3 days - start colace 100mg PO TID Hypertension Controlled Cozaar 25 mg PO DAILY [facility] Insomnia Desyrel 50 mg PO HS PRN Prophylaxis Lovenox 40 mg SC DAILY [facility] (held for GI bleed) Ecotrin 81 mg PO QAM [facility] Protonix Ec Tab 40 mg PO DAILY [facility] All medical management as per Dr. Silveira
[2018-03-22] MEDS: Ferric Sodium Gluconat Complex 62.5 mg/5 ml Vial IVPB SCH (10:02)
[2018-03-22] MEDS ORDERED: Midazolam 2 MG/2 ML VIAL ONE (11:04)
[2018-03-22] MEDS ORDERED: Propofol 10 mg/ml Inj (20 ML) ONE (11:05)
[2018-03-22] MEDS ORDERED: Phytonadione 10 mg/ml Inj (Adult) SC STA (11:21)
[2018-03-22 11:40] LABS: BASO % 1.1 % (0.0-2.0); EOS # 0.1 K/uL (0.0-0.7); LYMPH # 0.9 K/uL (1.0-4.3); MEAN PLATELET VOLUME 9.2 fL (7.2-11.7); MONO # 0.7 K/uL (0.0-0.8); MONO % 25.1 % (0.0-10.0); NRBC % 0.1 % (0.0-2.0); RBC 2.75 Mil/uL (4.40-5.90); WHITE BLOOD COUNT 2.7 K/uL (4.8-10.8)
[2018-03-22 11:46] LABS: EOS % 2.9 % (0.0-4.0); HEMOGLOBIN 8.9 g/dL (12.0-18.0); LYMPH % 34.4 % (20.0-40.0); MEAN CORPUSCULAR HEMOGLOBIN 32.5 pg (27.0-31.0); MEAN CORPUSCULAR HGB CONC 33.8 g/dL (33.0-37.0); NEUT % 36.5 % (50.0-75.0); RED CELL DISTRIBUTION WIDTH 15.6 % (11.5-14.5)
[2018-03-22 11:49] LABS: PLATELET COUNT 230 K/uL (130-400)
[2018-03-22 11:56] LABS: ALB/GLOB RATIO 1.2 (1.0-2.1); ALBUMIN 4.2 g/dL (3.5-5.0); ALT/SGPT 61 U/L (21-72); AST/SGOT 97 U/L (17-59); BLOOD UREA NITROGEN 15 mg/dL (9-20); CALCIUM 9.2 mg/dl (8.6-10.4); GFR AFRICAN-AMERICAN > 60; GFR NON-AFRICAN AMERICAN > 60
[2018-03-22] MEDS ORDERED: Peg-Electrolyte Oral Soln 4L (Golytely) PO ONE (13:00)
[2018-03-22 13:15] LABS: BASOPHIL 3 % (0-2); EOSINOPHIL 3 % (0-4); LYMPHOCYTE 32 % (20-40); MONOCYTE 21 % (0-10); NEUTROPHIL 41 % (50-75); PLATELET ESTIMATE NORMAL (NORMAL); TOTAL CELLS COUNTED 100
[2018-03-22 13:16] LABS: ANISOCYTOSIS SLIGHT; HYPOCHROMIC SLIGHT; STOMATOCYTES SLIGHT
[2018-03-22 13:17] LABS: LARGE PLATELETS PRESENT
[2018-03-22] MEDS: Belladonna-Phenobarbital PO SCH ×2 (14:43→17:35)
[2018-03-22] MEDS: Magnesium Sulfate 1 gm in D5W 1 GM/100 ML BAG IVPB SCH ×2 (14:57→17:25)
[2018-03-22] MEDS ORDERED: Bisacodyl 5mg EC Tab PO ONE (17:00)
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
[2018-03-22] MEDS: Sucralfate 1 gm/10 ml Oral Susp UD PO SCH (21:09)
[2018-03-23] MEDS: Morphine 4 MG/ML VIAL IV PRN ×2 (03:11→21:12)
[2018-03-23 06:34] LABS: BASO # 0.1 K/uL (0.0-0.2); EOS # 0.1 K/uL (0.0-0.7); EOS % 1.4 % (0.0-4.0); HEMOGLOBIN 8.8 g/dL (12.0-18.0); LYMPH # 1.1 K/uL (1.0-4.3); LYMPH % 19.9 % (20.0-40.0); MEAN CELL VOLUME 95.3 fL (80.0-94.0); MEAN CORPUSCULAR HEMOGLOBIN 32.3 pg (27.0-31.0); MEAN CORPUSCULAR HGB CONC 33.9 g/dL (33.0-37.0); MEAN PLATELET VOLUME 9.1 fL (7.2-11.7); MONO % 18.2 % (0.0-10.0); NEUT # 3.2 K/uL (1.8-7.0); NEUT % 59.5 % (50.0-75.0); NRBC % 0.1 % (0.0-2.0); RBC 2.72 Mil/uL (4.40-5.90); RED CELL DISTRIBUTION WIDTH 15.8 % (11.5-14.5); WHITE BLOOD COUNT 5.3 K/uL (4.8-10.8)
[2018-03-23 06:42] LABS: INR 1.2; PROTHROMBIN TIME 12.9 SECONDS (9.7-12.2)
[2018-03-23 06:45] LABS: ALB/GLOB RATIO 1.3 (1.0-2.1); ALBUMIN 4.2 g/dL (3.5-5.0); ALT/SGPT 50 U/L (21-72); AST/SGOT 74 U/L (17-59); BLOOD UREA NITROGEN 12 mg/dL (9-20); CALCIUM 9.2 mg/dl (8.6-10.4); GFR AFRICAN-AMERICAN > 60; GFR NON-AFRICAN AMERICAN > 60
--- NOTE | 2018-03-23 08:07 | CP.PCM.PN ---
Subjective - Date & Time of Evaluation Date of Evaluation: 03/23/18 Time of Evaluation: 07:35 - Subjective Subjective: Medicine progress note for Dr. Silveira's service Patient seen and examined at bedside, in no acute distress. He reports feeling less lightheaded this week after having a transfusion. He does c/o diffuse abdominal pain which is persistent. Endoscopy performed yesterday, going for Colonoscopy today. Denies dizziness, headache, fevers, or chills. 12-point review of systems is otherwise negative without any additional acute complaints. Objective - Vital Signs/Intake and Output Vital Signs (last 24 hours): Temp Pulse Resp BP Pulse Ox 97.9 F 79 20 108/71 96 03/23/18 07:42 03/23/18 07:42 03/23/18 07:42 03/23/18 07:42 03/23/18 07:42 Intake and Output: 03/23/18 03/23/18 06:59 18:59 Intake Total 700 0 Balance 700 0 - Medications Medications: Current Medications Aspirin (Ecotrin) 81 mg PO QAM [facility] Last Admin: 03/22/18 09:47 Dose: Not Given Belladonna/Phenobarbital () 1 tab PO TID [facility] Last Admin: 03/22/18 17:35 Dose: 1 tab Clonidine HCl (Catapres) 0.1 mg PO Q4H PRN PRN Reason: Symptoms of alcohol withdrawl Last Admin: 03/20/18 10:47 Dose: 0.1 mg Docusate Sodium (Colace) 100 mg PO TID [facility] Last Admin: 03/22/18 17:35 Dose: 100 mg Enoxaparin Sodium (Lovenox) 40 mg SC DAILY [facility] Ferric Sodium Gluconate Complex (Ferrlecit) 125 mg IVPB DAILY [facility] Stop: 03/26/18 10:31 Last Admin: 03/22/18 10:02 Dose: 125 mg Fluconazole (Diflucan) 100 mg PO DAILY [facility] PRN Reason: Protocol Last Admin: 03/22/18 09:47 Dose: Not Given Folic Acid (Folic Acid) 1 mg PO DAILY [facility] Last Admin: 03/22/18 09:47 Dose: Not Given Lorazepam (Ativan) 1 mg PO Q6 PRN PRN Reason: Symptoms of alcohol withdrawl Last Admin: 03/20/18 00:08 Dose: 1 mg Losartan Potassium (Cozaar) 25 mg PO DAILY [facility] Last Admin: 03/22/18 10:02 Dose: 25 mg Metoclopramide HCl (Reglan) 10 mg IVP Q6H [facility] Last Admin: 03/23/18 03:08 Dose: 10 mg Morphine Sulfate (Morphine) 4 mg IV Q6 PRN PRN Reason: Pain, severe (8-10) Last Admin: 03/23/18 03:11 Dose: 4 mg Multivitamins (Hexavitamin) 1 tab PO DAILY [facility] Ondansetron HCl (Zofran Inj) 4 mg IVP Q6 PRN PRN Reason: Nausea/Vomiting Last Admin: 03/17/18 19:48 Dose: 4 mg Pantoprazole Sodium (Protonix Ec Tab) 40 mg PO DAILY [facility] Last Admin: 03/22/18 09:47 Dose: Not Given Sucralfate (Carafate Oral Susp) 1 gm PO ACBHS [facility] Last Admin: 03/22/18 21:09 Dose: 1 gm Thiamine HCl (Vitamin B1 Tab) 100 mg PO DAILY [facility] Last Admin: 03/22/18 09:47 Dose: Not Given Tramadol HCl (Ultram) 50 mg PO Q6 PRN PRN Reason: Pain, moderate (4-7) Last Admin: 03/18/18 15:54 Dose: 50 mg Trazodone HCl (Desyrel) 50 mg PO HS PRN PRN Reason: Insomnia - Labs Labs: 03/23/18 06:22 03/23/18 06:22 PT 12.9 SECONDS (9.7-12.2) H 03/23/18 06:22 INR 1.2 03/23/18 06:22 APTT 32 SECONDS (21-34) 03/23/18 06:22 - Additional Findings Additional findings: - Constitutional Appears: No Acute Distress - Head Exam Head Exam: ATRAUMATIC, NORMOCEPHALIC - Eye Exam Eye Exam: EOMI - ENT Exam ENT Exam: Mucous Membranes Moist - Respiratory Exam Respiratory Exam: Clear to Ausculation Bilateral, NORMAL BREATHING PATTERN - Cardiovascular Exam Cardiovascular Exam: Regular Rate, +S1, +S2 - GI/Abdominal Exam GI & Abdominal Exam: Soft, Tenderness (mild epigastric), Normal Bowel Sounds - Extremities Exam Extremities Exam: Normal Inspection - Neurological Exam Neurological Exam: Alert, Awake, Oriented x3 - Skin Skin Exam: Warm, Dry, Intact Assessment and Plan - Assessment and Plan (Free Text) Assessment: Fecal occult +, needing transfusion 03/23: colonoscopy - nonbleeding external/internal hemorrhoids. Congest mucosa in decending colon, biopsied. See full report. pt will require: misoprostol 100mcg QID x10wks (until 06/01/18). anti reflux indefinitely. Analpram HC cream 2.5% BID x8wks. 03/22: repeat endoscopy - hiatal hernia, erythematous antrum mucosa and jejunal mucosa. see full report. occult blood stool positive on 02/15/18 GI consulted, Dr. Valencia Patient with recent colonoscopy Abdominal pain - LLQ abdominal pain 12/05, likely due to constipation - Morphine 4 mg IVP Q6H PRN - Ultram 50 mg PO Q6 PRN -start reglan 10mg IVP q6h and diflucan 100mg PO daily per Dr. Valencia Alcohol Abuse 03/22: patient is comfortable, no tremors, no asterixis, no n/v. NPO this AM for endoscopy Psych consult placed to Dr. Brennan, f/u recs CBT, Psychoeducation Ativan 1 mg PO Q6 PRN discontinue Librium Folic acid/thiamine/multivitamin Catapres 0.1 mg PO Q4H PRN Anemia 03/19: Hgb improved to 9.3 s/p 1u PRBC (03/18) Hgb 7.9- one unit of PRBC transfused- consent signed and placed in chart -IV Fe 125mg IVPB daily -Fe 40, TIBC 274, 14% sat, Ferritin 2630, Retic count 1.9 -likely 2/2 alcohol abuse / malnutrition Chest discomfort resolved CT chest 03/17 - mild atelectasis, mild scarring, mild dilatation of the ascending aorta, reflux evidence of Incentive spirometer added on 03/19 CXR negative EKG NSR, 80bpm, no ST changes TOO negative Sycope -Cardio consult, Dr. Novak, - syncope likely due to a vasodepressor mechanism -continue IV fluids Constipation - No BM for 3 days - start colace 100mg PO TID Hypertension Controlled Cozaar 25 mg PO DAILY [facility] Insomnia Desyrel 50 mg PO HS PRN Electrolyte abnormality 03/23: hypophosphatemia, P2.0 - neutraphos x2 03/23: hypokalemia, K3.5 - Kdur 40 Mg 1.0 on 03/19- repleted repeat Mg level today, replete as necessary Prophylaxis Lovenox 40 mg SC DAILY [facility] (held for GI bleed) Ecotrin 81 mg PO QAM [facility] Protonix Ec Tab 40 mg PO DAILY [facility] All medical management as per Dr. Silveira
[2018-03-23] MEDS ORDERED: Bisacodyl 5mg EC Tab PO ONE (08:13)
[2018-03-23] MEDS: Sucralfate 1 gm/10 ml Oral Susp UD PO SCH ×2 (08:34→21:03)
[2018-03-23] MEDS: Belladonna-Phenobarbital PO SCH ×3 (09:04→17:02)
[2018-03-23] MEDS: Multiple Vitamins Tab PO SCH ×2 (09:06→14:02)
[2018-03-23] MEDS: Pantoprazole 40 mg EC Tab PO SCH ×2 (09:06→14:01)
[2018-03-23] MEDS ORDERED: Potassium Chloride 20 mEq/15 ml LIQ UD PO STA (09:23)
[2018-03-23] MEDS ORDERED: Propofol 10 mg/ml Inj (20 ML) ONE (10:52)
[2018-03-23] MEDS ORDERED: Lactated Ringer's 1,000 ML IV ONE (10:56)
[2018-03-23] MEDS ORDERED: Lidocaine Hydrochloride 5 ML INJ ONE (11:11)
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
[2018-03-23] MEDS: Potassium & Sodium Phosphate PO SCH ×2 (14:02→20:03)
[2018-03-23] MEDS: Ferric Sodium Gluconat Complex 62.5 mg/5 ml Vial IVPB SCH (14:03)
[2018-03-23] MEDS ORDERED: Potassium Chloride 20 mEq ER Tab PO ONE (16:00)
[2018-03-23 16:52] VITALS: RESP 20
[2018-03-24] MEDS: Morphine 4 MG/ML VIAL IV PRN ×2 (06:08→12:52)
[2018-03-24 06:18] LABS: BASO % 1.1 % (0.0-2.0); EOS # 0.1 K/uL (0.0-0.7); EOS % 3.4 % (0.0-4.0); HEMOGLOBIN 8.6 g/dL (12.0-18.0); LYMPH # 1.2 K/uL (1.0-4.3); LYMPH % 30.6 % (20.0-40.0); MEAN CELL VOLUME 95.9 fL (80.0-94.0); MEAN CORPUSCULAR HEMOGLOBIN 32.1 pg (27.0-31.0); MEAN CORPUSCULAR HGB CONC 33.5 g/dL (33.0-37.0); MEAN PLATELET VOLUME 8.7 fL (7.2-11.7); MONO # 0.8 K/uL (0.0-0.8); MONO % 20.1 % (0.0-10.0); NEUT # 1.7 K/uL (1.8-7.0); NEUT % 44.8 % (50.0-75.0); PLATELET COUNT 246 K/uL (130-400); RBC 2.66 Mil/uL (4.40-5.90); RED CELL DISTRIBUTION WIDTH 15.4 % (11.5-14.5); WHITE BLOOD COUNT 3.8 K/uL (4.8-10.8)
[2018-03-24 06:34] LABS: ALB/GLOB RATIO 1.2 (1.0-2.1); ALBUMIN 3.8 g/dL (3.5-5.0); ALT/SGPT 47 U/L (21-72); AST/SGOT 65 U/L (17-59); BLOOD UREA NITROGEN 16 mg/dL (9-20); CALCIUM 8.9 mg/dl (8.6-10.4); GFR AFRICAN-AMERICAN > 60; GFR NON-AFRICAN AMERICAN > 60
--- NOTE | 2018-03-24 07:58 | CP.PCM.PN ---
Subjective - Date & Time of Evaluation Date of Evaluation: 03/24/18 Time of Evaluation: 07:25 - Subjective Subjective: Medicine progress note for Dr. Silveira's service Patient seen and examined at bedside, in no acute distress. Hgb stable and he denies any lightheadedness / dizziness. He reports a BM yesterday that was partially blood coated, along with small drops of blood in the toilet. Colonoscopy 03/23 showed external/internal hemorrhoids (non-bleeding). He is tolerating his diet. Denies f/c, lethargy, n/v, d/c. 12-point review of systems is otherwise negative without any additional acute complaints. Objective - Vital Signs/Intake and Output Vital Signs (last 24 hours): Temp Pulse Resp BP Pulse Ox 98.3 F 69 20 115/76 99 03/24/18 00:00 03/24/18 00:00 03/24/18 00:00 03/24/18 00:00 03/24/18 00:00 Intake and Output: 03/24/18 03/24/18 06:59 18:59 Intake Total 740 Balance 740 - Medications Medications: Current Medications Aspirin (Ecotrin) 81 mg PO QAM [facility] Last Admin: 03/23/18 09:05 Dose: Not Given Belladonna/Phenobarbital () 1 tab PO TID [facility] Last Admin: 03/23/18 17:02 Dose: 1 tab Clonidine HCl (Catapres) 0.1 mg PO Q4H PRN PRN Reason: Symptoms of alcohol withdrawl Last Admin: 03/20/18 10:47 Dose: 0.1 mg Docusate Sodium (Colace) 100 mg PO TID [facility] Last Admin: 03/23/18 17:02 Dose: 100 mg Enoxaparin Sodium (Lovenox) 40 mg SC DAILY [facility] Ferric Sodium Gluconate Complex (Ferrlecit) 125 mg IVPB DAILY [facility] Stop: 03/26/18 10:31 Last Admin: 03/23/18 14:03 Dose: 125 mg Fluconazole (Diflucan) 100 mg PO DAILY [facility] PRN Reason: Protocol Last Admin: 03/23/18 14:01 Dose: 100 mg Folic Acid (Folic Acid) 1 mg PO DAILY [facility] Last Admin: 03/23/18 14:01 Dose: 1 mg Lorazepam (Ativan) 1 mg PO Q6 PRN PRN Reason: Symptoms of alcohol withdrawl Last Admin: 03/20/18 00:08 Dose: 1 mg Losartan Potassium (Cozaar) 25 mg PO DAILY [facility] Last Admin: 03/23/18 09:12 Dose: Not Given Metoclopramide HCl (Reglan) 10 mg IVP Q6H [facility] Last Admin: 03/24/18 02:23 Dose: 10 mg Misoprostol (Cytotec) 100 mcg PO QID [facility] Last Admin: 03/23/18 21:04 Dose: 100 mcg Morphine Sulfate (Morphine) 4 mg IV Q6 PRN PRN Reason: Pain, severe (8-10) Last Admin: 03/24/18 06:08 Dose: 4 mg Multivitamins (Hexavitamin) 1 tab PO DAILY [facility] Last Admin: 03/23/18 14:02 Dose: 1 tab Ondansetron HCl (Zofran Inj) 4 mg IVP Q6 PRN PRN Reason: Nausea/Vomiting Last Admin: 03/17/18 19:48 Dose: 4 mg Pantoprazole Sodium (Protonix Ec Tab) 40 mg PO DAILY [facility] Last Admin: 03/23/18 14:01 Dose: 40 mg Sucralfate (Carafate Oral Susp) 1 gm PO ACBHS [facility] Last Admin: 03/23/18 21:03 Dose: 1 gm Thiamine HCl (Vitamin B1 Tab) 100 mg PO DAILY [facility] Last Admin: 03/23/18 14:01 Dose: 100 mg Tramadol HCl (Ultram) 50 mg PO Q6 PRN PRN Reason: Pain, moderate (4-7) Last Admin: 03/23/18 15:31 Dose: 50 mg Trazodone HCl (Desyrel) 50 mg PO HS PRN PRN Reason: Insomnia - Labs Labs: 03/24/18 06:09 03/24/18 06:09 PT 12.9 SECONDS (9.7-12.2) H 03/23/18 06:22 INR 1.2 03/23/18 06:22 APTT 32 SECONDS (21-34) 03/23/18 06:22 - Additional Findings Additional findings: - Constitutional Appears: No Acute Distress - Head Exam Head Exam: ATRAUMATIC, NORMOCEPHALIC - Eye Exam Eye Exam: EOMI - ENT Exam ENT Exam: Mucous Membranes Moist - Respiratory Exam Respiratory Exam: Clear to Ausculation Bilateral, NORMAL BREATHING PATTERN - Cardiovascular Exam Cardiovascular Exam: Regular Rate, +S1, +S2 - GI/Abdominal Exam GI & Abdominal Exam: Soft, Tenderness (mild epigastric), Normal Bowel Sounds - Extremities Exam Extremities Exam: Normal Inspection - Neurological Exam Neurological Exam: Alert, Awake, Oriented x3 - Skin Skin Exam: Warm, Dry, Intact Assessment and Plan - Assessment and Plan (Free Text) Assessment: Fecal occult +, needing transfusion 03/24: Start anusol SD BID topical (analpram not on formulary). 03/23: colonoscopy - nonbleeding external/internal hemorrhoids. Congest mucosa in decending colon, biopsied. See full report. pathology negative for H. Pylori pt will require: misoprostol 100mcg QID x10wks (until 06/01/18). anti reflux indefinitely. Analpram HC cream 2.5% BID x8wks. 03/22: repeat endoscopy - hiatal hernia, erythematous antrum mucosa and jejunal mucosa. see full report. occult blood stool positive on 02/15/18 GI consulted, Dr. Valencia Patient with recent colonoscopy +CEA 3.1H Abdominal pain - LLQ abdominal pain 3/10, likely due to constipation - Morphine 4 mg IVP Q6H PRN - Ultram 50 mg PO Q6 PRN -start reglan 10mg IVP q6h and diflucan 100mg PO daily per Dr. Valencia Anemia 03/24: Hgb 8.6 today, stable (8.8 yesterday). 03/19: Hgb improved to 9.3 s/p 1u PRBC (03/18) Hgb 7.9- one unit of PRBC transfused- consent signed and placed in chart -IV Fe 125mg IVPB daily -Fe 40, TIBC 274, 14% sat, Ferritin 2630, Retic count 1.9 -likely 2/2 alcohol abuse / malnutrition Chest discomfort resolved CT chest 03/17 - mild atelectasis, mild scarring, mild dilatation of the ascending aorta, reflux evidence of Incentive spirometer added on 03/19 CXR negative EKG NSR, 80bpm, no ST changes TOO negative Sycope -Cardio consult, Dr. Novak, - syncope likely due to a vasodepressor mechanism -continue IV fluids Constipation - start colace 100mg PO TID -no bm for 3 days Hypertension Controlled Cozaar 25 mg PO DAILY [facility] Insomnia Desyrel 50 mg PO HS PRN Electrolyte abnormality 03/24: hypomagnesemia, Mg 1.4 - Magsulfate x3 bags total 03/23: hypophosphatemia, P2.0 - neutraphos x2 03/23: hypokalemia, K3.5 - Kdur 40 Mg 1.0 on 03/19- repleted repeat Mg level today, replete as necessary Prophylaxis Lovenox 40 mg SC DAILY [facility] (held for GI bleed) Ecotrin 81 mg PO QAM [facility] Protonix Ec Tab 40 mg PO DAILY [facility] Disposition: Discharge tomorrow 03/24 if Hgb stable. All medical management as per Dr. Silveira
[2018-03-24 08:13] VITALS: BP 135/85; PULSE 68; TEMP 97.9; O2SAT 96
[2018-03-24] MEDS: Sucralfate 1 gm/10 ml Oral Susp UD PO SCH (08:15)
[2018-03-24 08:43] LABS: EOSINOPHIL 2 % (0-4); LYMPHOCYTE 31 % (20-40); MONOCYTE 14 % (0-10); NEUTROPHIL 53 % (50-75); PLATELET ESTIMATE NORMAL (NORMAL); TOTAL CELLS COUNTED 100
[2018-03-24 08:44] LABS: ANISOCYTOSIS SLIGHT; HYPOCHROMIC SLIGHT; POLYCHROMIC SLIGHT
[2018-03-24] MEDS ORDERED: Magnesium Sulfate 1 gm in D5W 1 GM/100 ML BAG IVPB SCH (10:00)
[2018-03-24] MEDS: Ferric Sodium Gluconat Complex 62.5 mg/5 ml Vial IVPB SCH (10:45)
[2018-03-24] MEDS: Multiple Vitamins Tab PO SCH (10:45)
[2018-03-24] MEDS: Pantoprazole 40 mg EC Tab PO SCH (10:45)
[2018-03-24] MEDS: Belladonna-Phenobarbital PO SCH ×2 (10:45→14:37)
[2018-03-24] MEDS ORDERED: Hydrocortisone 2.5% Rectal Cream(30 gm) PR SCH (12:00)
[2018-03-24] MEDS: Magnesium Sulfate 1 gm in D5W 1 GM/100 ML BAG IVPB SCH ×2 (12:13→12:47)
[2018-03-24] MEDS ORDERED: Magnesium Sulfate 1 gm in D5W 1 GM/100 ML BAG IVPB ONE (14:00)
--- NOTE | 2018-03-24 16:43 | CP.PCM.PN ---
Subjective - Date & Time of Evaluation Date of Evaluation: 03/24/18 Time of Evaluation: 16:43 - Subjective Subjective: Alert, orientedx3, no tremors or distress noted. Objective - Vital Signs/Intake and Output Vital Signs (last 24 hours): Temp Pulse Resp BP Pulse Ox 97.9 F 68 20 135/85 96 03/24/18 08:11 03/24/18 08:11 03/24/18 08:11 03/24/18 08:11 03/24/18 08:11 Intake and Output: 03/24/18 03/24/18 06:59 18:59 Intake Total 740 Balance 740 - Medications Medications: Current Medications Aspirin (Aspirin Chewable) [address] [facility] Last Admin: 03/24/18 10:45 Dose: 81 mg Belladonna/Phenobarbital () [address] [facility] Last Admin: 03/24/18 14:37 Dose: 1 tab Clonidine HCl (Catapres) 0.1 mg PO Q4H PRN PRN Reason: Symptoms of alcohol withdrawl Last Admin: 03/20/18 10:47 Dose: 0.1 mg Docusate Sodium (Colace) [address] [facility] Last Admin: 03/24/18 14:37 Dose: 100 mg Enoxaparin Sodium (Lovenox) [address] [facility] Ferric Sodium Gluconate Complex (Ferrlecit) [address] [facility] Stop: 03/26/18 10:31 Last Admin: 03/24/18 10:45 Dose: 125 mg Folic Acid (Folic Acid) [address] [facility] Last Admin: 03/24/18 10:45 Dose: 1 mg Hydrocortisone (Anusol-Hc) [address] [facility] Last Admin: 03/24/18 12:55 Dose: 1 applic Lorazepam (Ativan) 1 mg PO Q6 PRN PRN Reason: Symptoms of alcohol withdrawl Last Admin: 03/20/18 00:08 Dose: 1 mg Losartan Potassium (Cozaar) [address] [facility] Last Admin: 03/24/18 10:45 Dose: 25 mg Metoclopramide HCl (Reglan) [address] [facility] Last Admin: 03/24/18 14:36 Dose: 10 mg Misoprostol (Cytotec) [address] [facility] Last Admin: 03/24/18 14:37 Dose: 100 mcg Morphine Sulfate (Morphine) 4 mg IV Q6 PRN PRN Reason: Pain, severe (8-10) Last Admin: 03/24/18 12:52 Dose: 4 mg Multivitamins (Hexavitamin) [address] [facility] Last Admin: 03/24/18 10:45 Dose: 1 tab Ondansetron HCl (Zofran Inj) 4 mg IVP Q6 PRN PRN Reason: Nausea/Vomiting Last Admin: 03/17/18 19:48 Dose: 4 mg Pantoprazole Sodium (Protonix Ec Tab) [address] [facility] Last Admin: 03/24/18 10:45 Dose: 40 mg Sucralfate (Carafate Oral Susp) [address] [facility] Last Admin: 03/24/18 08:15 Dose: 1 gm Thiamine HCl (Vitamin B1 Tab) [address] [facility] Last Admin: 03/24/18 10:45 Dose: 100 mg Tramadol HCl (Ultram) 50 mg PO Q6 PRN PRN Reason: Pain, moderate (4-7) Last Admin: 03/23/18 15:31 Dose: 50 mg Trazodone HCl (Desyrel) 50 mg PO HS PRN PRN Reason: Insomnia - Labs Labs: 03/24/18 06:09 03/24/18 06:09 PT 12.9 SECONDS (9.7-12.2) H 03/23/18 06:22 INR 1.2 03/23/18 06:22 APTT 32 SECONDS (21-34) 03/23/18 06:22 Assessment and Plan - Assessment and Plan (Free Text) Assessment: 62 year old admitted with alcohol abuse,syncope, seen and examined. Alert and orientedx3, NAD. Feeling better, discussed with DR Bebeto Silveira, plan to discharge home today. Advised to follow up in the office in 1 week. All the necessary prescriptions given.
== END 2018-03-24 16:58 | disposition home or self-care (01) | DRG 552 ==
LOC: C.ER 17:06 → INTOOBSV 18:45 → C.9E 18:45 → C.5S 19:27 → OBSVTOIN 03-16 16:40 → C.3T 03-19 11:28
PROVIDERS: ADMIT Internal Medicine Nephrology; ATTEND Internal Medicine Nephrology
PROC: 30233N1 Transfusion of Nonautologous Red Blood Cells into Peripheral Vein, Percutaneous Approach (ICD-10-PCS; 2018-03-18)
PROC: 0DJ08ZZ Inspection of Upper Intestinal Tract, Via Natural or Artificial Opening Endoscopic (ICD-10-PCS; principal; 2018-03-19 14:03)
PROC: 0DB68ZX Excision of Stomach, Via Natural or Artificial Opening Endoscopic, Diagnostic (ICD-10-PCS; 2018-03-22)
PROC: 0DBM8ZX Excision of Descending Colon, Via Natural or Artificial Opening Endoscopic, Diagnostic (ICD-10-PCS; 2018-03-23)
DX: K92.0 Hematemesis (principal); F10.229 Alcohol dependence with intoxication, unspecified; B37.81 Candidal esophagitis; R55 Syncope and collapse; D61.818 Other pancytopenia; E46 Unspecified protein-calorie malnutrition; K86.0 Alcohol-induced chronic pancreatitis; K29.50 Unspecified chronic gastritis without bleeding; K44.9 Diaphragmatic hernia without obstruction or gangrene; D53.9 Nutritional anemia, unspecified; K58.1 Irritable bowel syndrome with constipation; I11.0 Hypertensive heart disease with heart failure; I50.9 Heart failure, unspecified; F10.239 Alcohol dependence with withdrawal, unspecified; K70.9 Alcoholic liver disease, unspecified; K64.8 Other hemorrhoids; J98.11 Atelectasis; K64.4 Residual hemorrhoidal skin tags; F41.9 Anxiety disorder, unspecified; J45.909 Unspecified asthma, uncomplicated; Y90.8 Blood alcohol level of 240 mg/100 ml or more; M19.90 Unspecified osteoarthritis, unspecified site; G47.00 Insomnia, unspecified; Z87.11 Personal history of peptic ulcer disease; Z87.891 Personal history of nicotine dependence

== ENCOUNTER 2018-03-30 15:24 | Emergency (ER) | payer MEDICAID ==
[2018-03-30 15:25] VITALS: BMI 24.8
[2018-03-30 15:58] VITALS: BP 125/78; PULSE 77; RESP 18; TEMP 97.7; O2SAT 98
--- NOTE | 2018-03-30 16:09 | C.PDOC ---
History Of Present Illness 62-year-old male with PMHx that includes alcohol abuse, presents to the emergency department with complaints of left chest and elbow pain after mechanical fall. Patient states he "fell out", had a fall at home, fell forward hitting his his left chest and elbow of the floor. He denies head injury or loss of consciousness, headache, dizziness, nausea, vomiting, chest pain, palpitations, SOB, or any other associated symptoms. Old records reviewed , patient received a tetanus vaccine on 04/19/17. Time Seen by Provider: 03/30/18 15:50 Chief Complaint (Nursing): Back Pain History Per: Patient History/Exam Limitations: no limitations Onset/Duration Of Symptoms: Hrs Current Symptoms Are (Timing): Still Present Quality Of Discomfort: "Pain" Severity: Mild Past Medical History Reviewed: Historical Data, Nursing Documentation, Vital Signs Vital Signs: Last Vital Signs Temp 97.7 F 03/30/18 15:58 Pulse 77 03/30/18 15:58 Resp 18 03/30/18 15:58 BP 125/78 03/30/18 15:58 Pulse Ox 98 03/30/18 17:32 - Medical History PMH: Anemia, Anxiety, Arthritis, CHF, Depression, Gastritis, Gastrointestinal Ulcer (PEPTIC), HTN, Pancreatitis, Peripheral Edema Surgical History: - [facility] Procedures ALCOHOL DETOXIFICATION (05/03/13) DETOXIFICATION SERVICES FOR SUBSTANCE ABUSE TREATMENT (07/13/17) EXCISION OF DESCENDING COLON, ENDO, DIAGN (03/16/18) EXCISION OF STOMACH, ENDO, DIAGN (03/16/18) EXTIRPATION OF MATTER FROM LARGE INTESTINE, ENDO (01/09/17) FLUOROSCOPY OF LEFT HEART USING LOW OSMOLAR CONTRAST (07/13/17) FLUOROSCOPY OF MULT COR ART USING L OSM CONTRAST (07/13/17) GROUP PSYCHOTHERAPY (01/24/16) INSERT OF MONITOR DEV INTO CHEST SUBCU/FASCIA, OPEN APPROACH (12/18/16) INSPECTION OF UPPER INTESTINAL TRACT, ENDO (03/16/18) MEASURE OF ARTERIAL PRESSURE, PERIPHERAL, LUMBER DRIVER APPROACH (12/18/16) MEASURE OF CARDIAC SAMPL & PRESSURE, L HEART, PERC APPROACH (07/13/17) MEASUREMENT OF CARDIAC RHYTHM, EXTERNAL APPROACH (12/18/16) TRANSFUSE NONAUT RED BLOOD CELLS IN PERIPH ART, PERC (01/09/17) TRANSFUSE NONAUT RED BLOOD CELLS IN PERIPH VEIN, PERC (03/16/18) Family History: States: No Known Family Hx - Social History Hx Tobacco Use: No (quit 2 months now) Hx Alcohol Use: Yes Hx Substance Use: No - Immunization History Hx Tetanus Toxoid Vaccination: No Hx Influenza Vaccination: No Hx Pneumococcal Vaccination: No Review Of Systems Constitutional: Negative for: Fever, Chills Cardiovascular: Positive for: Chest Pain (left chest wall pain ). Negative for : Palpitations Respiratory: Negative for: Shortness of Breath Gastrointestinal: Negative for: Nausea, Vomiting Musculoskeletal: Positive for: Other (left elbow) Neurological: Negative for: Weakness, Numbness, Headache, Dizziness Physical Exam - Physical Exam Appears: Well, Non-toxic, No Acute Distress Skin: Normal Color, Warm, Dry, No Rash, Other (see extremity exam) Head: Atraumatic, Normacephalic Eye(s): bilateral: Normal Inspection Oral Mucosa: Moist Neck: Normal, Normal ROM, No Midline Cervical Tenderness, No Paracervical Tenderness, No Step Off Deformity, Supple Chest: Tenderness (Left chest mild TTP), No Ecchymosis, No Subcutaneous Emphysema Cardiovascular: Rhythm Regular Respiratory: Normal Breath Sounds (equal breath sounds B/L ), No Rales, No Rhonchi, No Wheezing Gastrointestinal/Abdominal: Normal Exam, Bowel Sounds, Soft, No Tenderness Extremity: Tenderness (Left elbow skin avulsion/abrasion, approx 1cm in length) , No Calf Tenderness, Capillary Refill (< 2 sec all digits), No Deformity, No Swelling Extremity: Bilateral: Normal Color And Temperature, Normal ROM Pulses: Left Radial: Normal, Right Radial: Normal Neurological/Psych: Oriented x3, Normal Motor, Normal Sensation Gait: Steady ED Course And Treatment ECG: Interpreted By Me, Viewed By Me (sinus rhythm 80 bpm, first degree AV block , left axis deviation, no acute ST/T wave changes) ECG Interpretation: No Acute Changes O2 Sat by Pulse Oximetry: 98 (RA) Pulse Ox Interpretation: Normal - Radiology CXR: Interpreted by Me, Viewed By Me CXR Interpretation: Yes: No Acute Disease. No: Infiltrates, Fracture - Other Rad left elbow Xray X-Ray: Interpreted by Me, Viewed By Me (no fx/dislocation, no posterior fat pad) Progress Note: Patient given PO Motrin for pain, and Xrays of chest and left elbow ordered and reviewed. Bacitracin + gauze dressing applied by ED nurse to elbow wound. Reevaluation Time: 17:15 Reassessment Condition: Improved (Patient resting comfortably, states he feels better. He is AAOx3, ambulating normally in the ED. Patient instructed to follow up with PMD/clinic in 1-2 days, and understands he should return to ED if he has any concerning symptoms.) Disposition Counseled Patient/Family Regarding: Studies Performed, Diagnosis, Need For Followup, Rx Given - Disposition Referrals: [facility] [Outside] Disposition: HOME/ ROUTINE Disposition Time: 17:15 Condition: STABLE Additional Instructions: FOLLOW UP WITH YOUR DOCTOR/CLINIC IN 1-2 DAYS USE MEDICATION NEEDED RETURN TO ER IF SYMPTOMS WORSEN Prescriptions: Ibuprofen [Motrin Tab] 600 mg PO Q6 PRN #30 tab PRN Reason: fever/pain Instructions: Elbow Sprain (ED) Forms: [employer] (Maltese) Print Language: ICELANDIC - POA Present On Arrival: Falls Or Trauma - Clinical Impression Clinical Impression: Skin avulsion, Chest wall injury, Sprain of elbow, left - Scribe Statement The provider has reviewed the documentation as recorded by the Scribe (Julian Julio) All medical record entries made by the Scribe were at my direction and personally dictated by me. I have reviewed the chart and agree that the record accurately reflects my personal performance of the history, physical exam, medical decision making, and the department course for this patient. I have also personally directed, reviewed, and agree with the discharge instructions and disposition.
--- NOTE | 2018-03-30 16:27 | RAD ---
HISTORY: LEFT UPPER CHEST PAIN COMPARISON: Chest radiograph dated 03/15/2018. TECHNIQUE: Chest PA and lateral FINDINGS: LUNGS: No active pulmonary disease. PLEURA: No significant pleural effusion identified. No pneumothorax apparent. CARDIOVASCULAR: Subcutaneous implanted cardiac device. Atherosclerotic aortic calcifications. Cardiomediastinal silhouette within normal limits. OSSEOUS STRUCTURES: Unchanged. VISUALIZED UPPER ABDOMEN: Normal. OTHER FINDINGS: None. IMPRESSION: No active disease.
[2018-03-30] MEDS ORDERED: Bacitracin 500 Units/gm Oint Foilpak UD ONE (16:34)
--- NOTE | 2018-03-30 16:35 | RAD ---
PROCEDURE: Radiographs of the left elbow. HISTORY: LEFT ELBOW PAIN AFTER FALL COMPARISON: No prior. FINDINGS: BONES: No acute fracture. JOINTS: Degenerative changes. SOFT TISSUES: Normal. JOINT EFFUSION: None. OTHER FINDINGS: Triceps tendon enthesophyte IMPRESSION: No demonstrated fracture or dislocation. Degenerative changes.
[2018-03-30] MEDS ORDERED: Bacitracin Ointment 30 GM TUBE TOP STA (16:56)
--- NOTE | 2018-04-01 21:03 | CARD ---
APPROVED REPORT EKG Measurement Heart [id number] <Conclusion> Sinus rhythm with 1st degree AV block Prolonged QT Abnormal ECG
== END 2018-03-30 17:32 | disposition home or self-care (01) ==
LOC: C.ER 15:24
DX: S29.9XXA Unspecified injury of thorax, initial encounter (principal); S51.002A Unspecified open wound of left elbow, initial encounter; S53.402A Unspecified sprain of left elbow, initial encounter; W19.XXXA Unspecified fall, initial encounter; Y92.009 Unspecified place in unspecified non-institutional (private) residence as the place of occurrence of the external cause

== ENCOUNTER 2018-03-31 11:17 | Inpatient (IN) | payer MEDICAID ==
[2018-03-31 11:18] VITALS: BMI 24.8
--- NOTE | 2018-03-31 11:54 | C.PDOC ---
History Of Present Illness 62 y/o male BIBA complaining of left- sided chest pain and nausea with 1 episode of vomiting which started today. Patient states that he experienced chest pain and he had 1 syncopal when he was at [facility] today. Patient was given Aspirin and Nitro in field. He reports that the chest pain has improved since arrival to ER. Patient denies SOB, cough, palpitations, fever, abdominal pain. Time Seen by Provider: 03/31/18 11:19 Chief Complaint (Nursing): Chest Pain History Per: Patient History/Exam Limitations: no limitations Onset/Duration Of Symptoms: Hrs Current Symptoms Are (Timing): Still Present Severity: Moderate Past Medical History Reviewed: Historical Data, Nursing Documentation, Vital Signs Vital Signs: Last Vital Signs Temp 97.9 F 04/01/18 16:27 Pulse 76 04/01/18 16:27 Resp 21 04/01/18 16:27 BP 137/71 04/01/18 16:27 Pulse Ox 98 04/01/18 16:27 - Medical History PMH: Anemia, Anxiety, Arthritis, CHF, Depression, Gastritis, Gastrointestinal Ulcer (PEPTIC), HTN, Pancreatitis, Peripheral Edema Surgical History: Other Surgeries: Hx of surgeries - [facility] Procedures ALCOHOL DETOXIFICATION (05/03/13) DETOXIFICATION SERVICES FOR SUBSTANCE ABUSE TREATMENT (07/13/17) EXCISION OF DESCENDING COLON, ENDO, DIAGN (03/16/18) EXCISION OF STOMACH, ENDO, DIAGN (03/16/18) EXTIRPATION OF MATTER FROM LARGE INTESTINE, ENDO (01/09/17) FLUOROSCOPY OF LEFT HEART USING LOW OSMOLAR CONTRAST (07/13/17) FLUOROSCOPY OF MULT COR ART USING L OSM CONTRAST (07/13/17) GROUP PSYCHOTHERAPY (01/24/16) INSERT OF MONITOR DEV INTO CHEST SUBCU/FASCIA, OPEN APPROACH (12/18/16) INSPECTION OF UPPER INTESTINAL TRACT, ENDO (03/16/18) MEASURE OF ARTERIAL PRESSURE, PERIPHERAL, CHILD GUIDANCE COUNSELOR APPROACH (12/18/16) MEASURE OF CARDIAC SAMPL & PRESSURE, L HEART, PERC APPROACH (07/13/17) MEASUREMENT OF CARDIAC RHYTHM, EXTERNAL APPROACH (12/18/16) TRANSFUSE NONAUT RED BLOOD CELLS IN PERIPH ART, PERC (01/09/17) TRANSFUSE NONAUT RED BLOOD CELLS IN PERIPH VEIN, PERC (03/16/18) Family History: States: No Known Family Hx - Social History Hx Tobacco Use: No (quit 2 months now) Hx Alcohol Use: Yes Hx Substance Use: No - Immunization History Hx Tetanus Toxoid Vaccination: Yes Hx Influenza Vaccination: Yes Hx Pneumococcal Vaccination: No Review Of Systems Constitutional: Negative for: Fever, Chills Cardiovascular: Positive for: Chest Pain. Negative for: Palpitations Respiratory: Negative for: Cough, Shortness of Breath Gastrointestinal: Positive for: Nausea, Vomiting. Negative for: Abdominal Pain Skin: Negative for: Rash Neurological: Positive for: Other (syncope ). Negative for: Weakness, Numbness , Headache, Dizziness Physical Exam - Physical Exam Appears: Well, Non-toxic, No Acute Distress, Unkempt Skin: Normal Color, Warm, Dry Head: Atraumatic, Normacephalic Eye(s): bilateral: Normal Inspection, PERRL, EOMI Oral Mucosa: Moist Neck: Supple Chest: Symmetrical, Other (pacemaker in left upper chest) Cardiovascular: Rhythm Regular Respiratory: Normal Breath Sounds, No Rales, No Rhonchi, No Wheezing Gastrointestinal/Abdominal: Normal Exam, Bowel Sounds, Soft, No Tenderness Extremity: Normal ROM, No Pedal Edema, No Calf Tenderness Pulses: Left Dorsalis Pedis: Normal, Right Dorsalis Pedis: Normal Neurological/Psych: Oriented x3, Normal Speech, Normal Cognition, Normal Cranial Nerves, No Cerebellar Signs, Normal Motor, Normal Sensation ED Course And Treatment - Laboratory Results Result Diagrams: 03/31/18 11:54 03/31/18 11:54 ECG: Interpreted By Me, Viewed By Me ECG Rhythm: Sinus Rhythm ECG Interpretation: No Acute Changes Interpretation Of ECG: NSR with left axis deviation and no acute ST/ T wave changes Rate From EC (QTc - 497 ms) O2 Sat by Pulse Oximetry: 96 (RA) Pulse Ox Interpretation: Normal - Radiology CXR: Interpreted by Me, Viewed By Me CXR Interpretation: Yes: No Acute Disease. No: Infiltrates Progress Note: Blood work, EKG, CXR, UA, UDS ordered and reviewed. Patient given IV NS bolus. - Physician Consult Information Physician Contacted: Pablo Silveira Outcome Of Conversation: Discussed patient with medicine manager infusion, agrees with admission for chest pain, acute renal failure, dehydration, alcohol abuse. Disposition - Disposition Disposition: HOSPITALIZED Disposition Time: 13:22 Condition: STABLE - Clinical Impression Clinical Impression: Chest pain, ARF (acute renal failure), Dehydration, Alcohol abuse - Scribe Statement The provider has reviewed the documentation as recorded by the Scribe Yovany Andersen Provider Attestation: All medical record entries made by the Scribe were at my direction and personally dictated by me. I have reviewed the chart and agree that the record accurately reflects my personal performance of the history, physical exam, medical decision making, and the department course for this patient. I have also personally directed, reviewed, and agree with the discharge instructions and disposition. Decision To Admit - Pt Status Changed To: Hospital Disposition Of: Observation - . Bed Request Type: Telemetry Admitting Physician: Pablo Silveira Patient Diagnosis: Chest pain, ARF (acute renal failure), Dehydration, Alcohol abuse
[2018-03-31 11:58] LABS: BASO # 0.2 K/uL (0.0-0.2); BASO % 3.1 % (0.0-2.0); EOS # 0.1 K/uL (0.0-0.7); EOS % 1.8 % (0.0-4.0); HEMOGLOBIN 8.3 g/dL (12.0-18.0); LYMPH # 1.3 K/uL (1.0-4.3); LYMPH % 24.8 % (20.0-40.0); MEAN CORPUSCULAR HEMOGLOBIN 32.1 pg (27.0-31.0); MEAN CORPUSCULAR HGB CONC 33.8 g/dL (33.0-37.0); MONO # 0.6 K/uL (0.0-0.8); MONO % 10.8 % (0.0-10.0); NEUT % 59.5 % (50.0-75.0); NRBC % 0.1 % (0.0-2.0); PLATELET COUNT 344 K/uL (130-400); RED CELL DISTRIBUTION WIDTH 15.5 % (11.5-14.5); WHITE BLOOD COUNT 5.1 K/uL (4.8-10.8)
[2018-03-31 12:12] LABS: ALB/GLOB RATIO 1.4 (1.0-2.1); ALBUMIN 4.7 g/dL (3.5-5.0); ALT/SGPT 39 U/L (21-72); AST/SGOT 96 U/L (17-59); BLOOD UREA NITROGEN 27 mg/dL (9-20); CALCIUM 8.2 mg/dl (8.6-10.4); GFR AFRICAN-AMERICAN 46; GFR NON-AFRICAN AMERICAN 38
[2018-03-31 12:13] LABS: INR 1.1; PROTHROMBIN TIME 12.4 SECONDS (9.7-12.2)
--- NOTE | 2018-03-31 12:19 | RAD ---
PROCEDURE: CHEST RADIOGRAPH, 1 VIEW HISTORY: CP COMPARISON: Chest radiograph dated 03/30/2018. FINDINGS: LUNGS: Clear. PLEURA: No pneumothorax or pleural fluid seen. CARDIOVASCULAR: Subcutaneous implanted cardiac device redemonstrated. Cardiomediastinal within normal limits. OSSEOUS STRUCTURES: Unchanged. VISUALIZED UPPER ABDOMEN: Normal. OTHER FINDINGS: None. IMPRESSION: No active disease.
[2018-03-31 12:22] LABS: CK-MB 1.62 ng/mL (0.0-3.38)
[2018-03-31 12:32] LABS: BASOPHIL 1 % (0-2); EOSINOPHIL 2 % (0-4); LYMPHOCYTE 25 % (20-40); MONOCYTE 10 % (0-10); NEUTROPHIL 62 % (50-75); PLATELET ESTIMATE NORMAL (NORMAL); TOTAL CELLS COUNTED 100
[2018-03-31 12:33] LABS: ANISOCYTOSIS SLIGHT; TOXIC GRANULATION PRESENT
[2018-03-31 12:34] LABS: HYPOCHROMIC SLIGHT; POLYCHROMIC SLIGHT
[2018-03-31] MEDS ORDERED: Sodium Chloride 0.9% 500 ML IV ONE (13:22)
[2018-03-31 13:24] LABS: SQUAMOUS EPITHIAL 2 /hpf (0-5); URINE BACTERIA RARE (<OCC); URINE BILIRUBIN NEGATIVE (NEGATIVE); URINE BLOOD NEGATIVE (NEGATIVE); URINE CLARITY Hazy (Clear); URINE COLOR Yellow (YELLOW); URINE GLUCOSE (UA) NORMAL (Normal); URINE LEUKOCYTE ESTERASE NEG Leu/uL (Negative); URINE PROTEIN NEGATIVE (NEGATIVE); URINE UROBILINOGEN NORMAL mg/dL (0.2-1.0)
[2018-03-31 13:34] LABS: BENZODIAZEPINES, UR NEGATIVE (NEGATIVE); OPIATES, UR NEGATIVE (NEGATIVE); PHENCYCLIDINE, UR NEGATIVE (NEGATIVE)
[2018-03-31 13:37] LABS: BARBITURATES, UR POSITIVE (NEGATIVE)
--- NOTE | 2018-03-31 14:44 | CP.PCM.HP ---
Past Patient History - Infectious Disease Hx of Infectious Diseases: None - Past Medical History & Family History Past Medical History?: Yes - Past Social History Smoking Status: Former Smoker - CARDIAC Hx Congestive Heart Failure: Yes Hx Hypertension: Yes Hx Peripheral Edema: Yes - PULMONARY Hx Respiratory Disorders: No - NEUROLOGICAL Hx Seizures: No - HEENT Hx HEENT Problems: Yes Hx Cataracts: Yes ([facility]andon.Cataract Extraction 2013) - RENAL Hx Chronic Kidney Disease: No Hx Kidney Stones: No - ENDOCRINE/METABOLIC Hx Endocrine Disorders: No Hx Diabetes Mellitus Type 2: Yes - HEMATOLOGICAL/ONCOLOGICAL Hx Anemia: Yes Hx Human Immunodeficiency Virus (HIV): No - INTEGUMENTARY Hx Dermatological Problems: No - MUSCULOSKELETAL/RHEUMATOLOGICAL Hx Arthritis: Yes - GASTROINTESTINAL Hx Gastritis: Yes Hx Pancreatitis: Yes - GENITOURINARY/GYNECOLOGICAL Hx Sexually Transmitted Disorders: No - PSYCHIATRIC Hx Anxiety: Yes Hx Depression: Yes Hx Substance Use: No - SURGICAL HISTORY Hx Surgeries: Yes Hx Eye Surgery: Yes ([facility]. Cataract Extraction 2013) Other/Comment: "head injury" hx. "implanted loop recorder". pacemaker - ANESTHESIA Hx Anesthesia: Yes Hx Anesthesia Reactions: No Hx Malignant Hyperthermia: No Meds Allergies/Adverse Reactions: Allergies Allergy/AdvReac Type Severity Reaction Status Date / Time Iodinated Contrast- Oral and Allergy Severe SWELLING Verified 03/31/18 11:31 IV Dye shellfish derived Allergy Intermediate RASH Verified 03/31/18 11:31 milk AdvReac Intermediate DIARRHEA Verified 03/31/18 11:31 Physical Exam - Constitutional Appears: Well - Head Exam Head Exam: ATRAUMATIC, NORMAL INSPECTION, NORMOCEPHALIC - Eye Exam Eye Exam: EOMI, Normal appearance, PERRL Pupil Exam: NORMAL ACCOMODATION, PERRL - ENT Exam ENT Exam: Mucous Membranes Moist, Normal Exam - Neck Exam Neck exam: Positive for: Normal Inspection - Respiratory Exam Respiratory Exam: Decreased Breath Sounds - Cardiovascular Exam Cardiovascular Exam: REGULAR RHYTHM, +S1, +S2 - GI/Abdominal Exam GI & Abdominal Exam: Diminished Bowel Sounds, Soft - Rectal Exam Rectal Exam: Deferred Results - Vital Signs Recent Vital Signs: Last Vital Signs Temp 98.2 F 03/31/18 11:33 Pulse 75 03/31/18 12:22 Resp 16 03/31/18 12:22 BP 141/97 H 03/31/18 12:22 Pulse Ox 98 03/31/18 12:22 - Labs Result Diagrams: 03/31/18 11:54 03/31/18 11:54 Labs: Laboratory Results - last 24 hr 03/31/18 03/31/18 03/31/18 11:29 11:54 11:54 WBC 5.1 RBC 2.60 L Hgb 8.3 L Hct 24.7 L MCV 95.0 H MCH 32.1 H MCHC 33.8 RDW 15.5 H Plt Count 344 MPV 8.0 Neut % (Auto) 59.5 Lymph % (Auto) 24.8 [place] % (Auto) 10.8 H Eos % (Auto) 1.8 Baso % (Auto) 3.1 H Neut # (Auto) 3.0 Lymph # (Auto) 1.3 [place] # (Auto) 0.6 Eos # (Auto) 0.1 Baso # (Auto) 0.2 Neutrophils % (Manual) 62 Lymphocytes % (Manual) 25 Monocytes % (Manual) 10 Eosinophils % (Manual) 2 Basophils % (Manual) 1 Toxic Granulation Present Platelet Estimate Normal Polychromasia Slight Hypochromasia (manual) Slight Anisocytosis (manual) Slight Macrocytosis (manual) Slight PT 12.4 H INR 1.1 APTT 27 Sodium Potassium Chloride Carbon Dioxide Anion Gap BUN Creatinine Est GFR ( Amer) Est GFR (Non-Af Amer) POC Glucose (mg/dL) 85 Random Glucose Calcium Total Bilirubin AST ALT Alkaline Phosphatase Total Creatine Kinase CK-MB (Mass) Troponin I Total Protein Albumin Globulin Albumin/Globulin Ratio Urine Color Urine Clarity Urine pH Ur Specific [place] Urine Protein Urine Glucose (UA) Urine Ketones Urine Blood Urine Nitrate Urine Bilirubin Urine Urobilinogen Ur Leukocyte Esterase Urine WBC (Auto) Urine RBC (Auto) Ur Squamous Epith Cells Urine Bacteria Hyaline Casts Urine Opiates Screen Urine Methadone Screen Ur Barbiturates Screen Ur Phencyclidine Scrn Ur Amphetamines Screen U Benzodiazepines Scrn U Oth Cocaine Metabols U Cannabinoids Screen Alcohol, Quantitative 03/31/18 03/31/18 03/31/18 11:54 12:44 13:15 WBC RBC Hgb Hct MCV MCH MCHC RDW Plt Count MPV Neut % (Auto) Lymph % (Auto) [place] % (Auto) Eos % (Auto) Baso % (Auto) Neut # (Auto) Lymph # (Auto) [place] # (Auto) Eos # (Auto) Baso # (Auto) Neutrophils % (Manual) Lymphocytes % (Manual) Monocytes % (Manual) Eosinophils % (Manual) Basophils % (Manual) Toxic Granulation Platelet Estimate Polychromasia Hypochromasia (manual) Anisocytosis (manual) Macrocytosis (manual) PT INR APTT Sodium 141 Potassium 4.7 Chloride 101 Carbon Dioxide 19 L Anion Gap 26 H BUN 27 H Creatinine 1.8 H Est GFR ( Amer) 46 Est GFR (Non-Af Amer) 38 POC Glucose (mg/dL) Random Glucose 88 Calcium 8.2 L Total Bilirubin 0.8 AST 96 H D ALT 39 Alkaline Phosphatase 79 Total Creatine Kinase 262 H CK-MB (Mass) 1.62 Troponin I < 0.0120 Total Protein 8.1 Albumin 4.7 Globulin 3.4 Albumin/Globulin Ratio 1.4 Urine Color Yellow Urine Clarity Hazy Urine pH 5.0 Ur Specific [place] 1.006 Urine Protein Negative Urine Glucose (UA) Normal Urine Ketones Negative Urine Blood Negative Urine Nitrate Negative Urine Bilirubin Negative Urine Urobilinogen Normal Ur Leukocyte Esterase Neg Urine WBC (Auto) 1 Urine RBC (Auto) < 1 Ur Squamous Epith Cells 2 Urine Bacteria Rare Hyaline Casts 6-10 H Urine Opiates Screen Urine Methadone Screen Ur Barbiturates Screen Ur Phencyclidine Scrn Ur Amphetamines Screen U Benzodiazepines Scrn U Oth Cocaine Metabols U Cannabinoids Screen Alcohol, Quantitative 351 H 03/31/18 13:15 WBC RBC Hgb Hct MCV MCH MCHC RDW Plt Count MPV Neut % (Auto) Lymph % (Auto) [place] % (Auto) Eos % (Auto) Baso % (Auto) Neut # (Auto) Lymph # (Auto) [place] # (Auto) Eos # (Auto) Baso # (Auto) Neutrophils % (Manual) Lymphocytes % (Manual) Monocytes % (Manual) Eosinophils % (Manual) Basophils % (Manual) Toxic Granulation Platelet Estimate Polychromasia Hypochromasia (manual) Anisocytosis (manual) Macrocytosis (manual) PT INR APTT Sodium Potassium Chloride Carbon Dioxide Anion Gap BUN Creatinine Est GFR ( Amer) Est GFR (Non-Af Amer) POC Glucose (mg/dL) Random Glucose Calcium Total Bilirubin AST ALT Alkaline Phosphatase Total Creatine Kinase CK-MB (Mass) Troponin I Total Protein Albumin Globulin Albumin/Globulin Ratio Urine Color Urine Clarity Urine pH Ur Specific [place] Urine Protein Urine Glucose (UA) Urine Ketones Urine Blood Urine Nitrate Urine Bilirubin Urine Urobilinogen Ur Leukocyte Esterase Urine WBC (Auto) Urine RBC (Auto) Ur Squamous Epith Cells Urine Bacteria Hyaline Casts Urine Opiates Screen Negative Urine Methadone Screen Negative Ur Barbiturates Screen Positive H Ur Phencyclidine Scrn Negative Ur Amphetamines Screen Negative U Benzodiazepines Scrn Negative U Oth Cocaine Metabols Negative U Cannabinoids Screen Negative Alcohol, Quantitative
[2018-03-31 20:01] LABS: CK-MB 1.64 ng/mL (0.0-3.38)
--- NOTE | 2018-04-01 07:11 | CP.PCM.PN ---
Subjective - Date & Time of Evaluation Date of Evaluation: 04/01/18 Time of Evaluation: 07:11 - Subjective Subjective: PGY2 Medicine Note for Dr. Bebeto Silveira Patient seen and examined this morning at bedside. No acute events overnight. Patient's chest pain is much improved. His chest pain on admission sounds pleuritic in nature due to pain with deep inspiration located on the right side of chest. Patient has no complaints at this time. ROS negative. Objective - Vital Signs/Intake and Output Vital Signs (last 24 hours): Temp Pulse Resp BP Pulse Ox 97.9 F 79 20 118/77 97 04/01/18 00:00 04/01/18 00:00 04/01/18 00:00 04/01/18 00:00 04/01/18 00:00 - Medications Medications: Current Medications Aspirin (Ecotrin) 81 mg PO QAM [facility] Clopidogrel Bisulfate (Plavix) 75 mg PO DAILY [facility] Last Admin: 03/31/18 17:59 Dose: 75 mg Enoxaparin Sodium (Lovenox) 40 mg SC DAILY [facility] Famotidine (Pepcid) 20 mg PO DAILY [facility] Famotidine (Pepcid) 20 mg PO BID [facility] Last Admin: 03/31/18 17:59 Dose: 20 mg Folic Acid (Folic Acid) 1 mg PO DAILY [facility] Losartan Potassium (Cozaar) 25 mg PO DAILY [facility] Magnesium Oxide (Mag-Ox) 400 mg PO DAILY [facility] Morphine Sulfate (Morphine) 2 mg IVP Q6H PRN PRN Reason: Pain, severe (8-10) Last Admin: 04/01/18 05:40 Dose: 2 mg Multivitamins (Hexavitamin) 1 tab PO DAILY [facility] Thiamine HCl (Vitamin B1 Tab) 100 mg PO DAILY [facility] Trazodone HCl (Desyrel) 50 mg PO HS PRN PRN Reason: Insomnia Last Admin: 03/31/18 22:10 Dose: 50 mg - Labs Labs: 03/31/18 11:54 03/31/18 11:54 PT 12.4 SECONDS (9.7-12.2) H 03/31/18 11:54 INR 1.1 03/31/18 11:54 APTT 27 SECONDS (21-34) 03/31/18 11:54 - Constitutional Appears: Non-toxic, No Acute Distress - Head Exam Head Exam: ATRAUMATIC - Eye Exam Eye Exam: Normal appearance - ENT Exam ENT Exam: Mucous Membranes Moist - Neck Exam Neck Exam: absent: Lymphadenopathy - Respiratory Exam Respiratory Exam: Chest Wall Tenderness (Right sided pain reproducible to palpation over ribs), Clear to Ausculation Bilateral, NORMAL BREATHING PATTERN. absent: Accessory Muscle Use, Decreased Breath Sounds, Rales, Rhonchi, Wheezes , Respiratory Distress - Cardiovascular Exam Cardiovascular Exam: REGULAR RHYTHM (on tele), +S1, +S2 - GI/Abdominal Exam GI & Abdominal Exam: Soft, Normal Bowel Sounds. absent: Distended, Firm, Guarding, Rigid, Tenderness - Extremities Exam Extremities Exam: absent: Calf Tenderness, Pedal Edema - Neurological Exam Neurological Exam: Alert, Awake, Oriented x3 - Psychiatric Exam Psychiatric exam: Normal Affect, Normal Mood - Skin Skin Exam: Dry, Warm Assessment and Plan - Assessment and Plan (Free Text) Plan: Chest Pain Cardio consult - Dr. Smith CXR - No acute disease EKG - NSR with left axis deviation and no acute ST/ T wave changes Trop neg x [address] - pending Carvedilol 6.25mg PO BID Morphine 2mg IVP q6h prn ELISA upon admission Cr 1.8 Mag OX 400mg PO daily continue to monitor new complaint of Rash on legs Benadryl 25mg PO q6h prn EtOH abuse disorder Alc upon admission 351 PO folic acid/MV/thiamine Ativan 1mg PO Q3 prn HTN Aspirin 81mg PO daily Losartan 25mg PO daily well controlled Prophylactic measures Lovenox 40mg IVP daily Pepcid 20mg PO Zofran prn SCDs Trazodone 50mg PO HS prn Heart healthy diet All management per Dr. Bebeto Keys Robyn PGY 2
[2018-04-01] MEDS ORDERED: Pantoprazole 40 mg EC Tab PO SCH (10:00)
[2018-04-01] MEDS: Magnesium Oxide 400 mg Tab UD PO SCH (10:12)
[2018-04-01] MEDS: Multiple Vitamins Tab PO SCH (10:12)
[2018-04-01] MEDS: Enoxaparin 40 mg Syringe SC SCH (10:12)
--- NOTE | 2018-04-01 16:44 | CP.PCM.PN ---
Subjective - Date & Time of Evaluation Date of Evaluation: 04/01/18 Time of Evaluation: 09:40 - Subjective Subjective: clinically same Objective - Vital Signs/Intake and Output Vital Signs (last 24 hours): Temp Pulse Resp BP Pulse Ox 97.9 F 76 21 137/71 98 04/01/18 16:27 04/01/18 16:27 04/01/18 16:27 04/01/18 16:27 04/01/18 16:27 - Medications Medications: Current Medications Aspirin (Ecotrin) 81 mg PO QAM [facility] Last Admin: 04/01/18 10:16 Dose: 81 mg Carvedilol (Coreg) 3.125 mg PO BID [facility] Enoxaparin Sodium (Lovenox) 40 mg SC DAILY [facility] Last Admin: 04/01/18 10:12 Dose: 40 mg Famotidine (Pepcid) 20 mg PO DAILY [facility] Last Admin: 04/01/18 10:13 Dose: 20 mg Folic Acid (Folic Acid) 1 mg PO DAILY [facility] Last Admin: 04/01/18 10:12 Dose: 1 mg Lorazepam (Ativan) 1 mg IVP Q3H PRN PRN Reason: Symptoms of alcohol withdrawl Losartan Potassium (Cozaar) 25 mg PO DAILY [facility] Last Admin: 04/01/18 10:13 Dose: 25 mg Magnesium Oxide (Mag-Ox) 400 mg PO DAILY [facility] Last Admin: 04/01/18 10:12 Dose: 400 mg Morphine Sulfate (Morphine) 2 mg IVP Q6H PRN PRN Reason: Pain, severe (8-10) Last Admin: 04/01/18 12:18 Dose: 2 mg Multivitamins (Hexavitamin) 1 tab PO DAILY [facility] Last Admin: 04/01/18 10:12 Dose: 1 tab Thiamine HCl (Vitamin B1 Tab) 100 mg PO DAILY [facility] Last Admin: 04/01/18 10:13 Dose: 100 mg Trazodone HCl (Desyrel) 50 mg PO HS PRN PRN Reason: Insomnia Last Admin: 03/31/18 22:10 Dose: 50 mg - Labs Labs: 03/31/18 11:54 03/31/18 11:54 PT 12.4 SECONDS (9.7-12.2) H 03/31/18 11:54 INR 1.1 03/31/18 11:54 APTT 27 SECONDS (21-34) 03/31/18 11:54 - Constitutional Appears: Well - Head Exam Head Exam: ATRAUMATIC, NORMAL INSPECTION, NORMOCEPHALIC - Eye Exam Eye Exam: EOMI, Normal appearance, PERRL Pupil Exam: NORMAL ACCOMODATION, PERRL - ENT Exam ENT Exam: Mucous Membranes Moist, Normal Exam - Neck Exam Neck Exam: Full ROM, Normal Inspection. absent: Lymphadenopathy - Respiratory Exam Respiratory Exam: Decreased Breath Sounds - Cardiovascular Exam Cardiovascular Exam: REGULAR RHYTHM, +S1, +S2 - GI/Abdominal Exam GI & Abdominal Exam: Soft, Diminished Bowel Sounds - Rectal Exam Rectal Exam: Deferred
--- NOTE | 2018-04-02 01:12 | CON ---
DATE: 04/01/2018 CARDIOLOGY CONSULTATION REASON FOR CONSULTATION: Left-sided chest pain and a fainting episode. HISTORY OF PRESENT ILLNESS: The patient is a 62-year-old male who has history of EtOH abuse who was recently discharged after he was evaluated in the emergency room for left shoulder injury. The patient was admitted on 03/16/2018 because of syncopal episode, chest pain, and alcohol intoxication. His alcohol level was at that time 263. The patient is not completely aware of his cardiac history except that the fact that he has an event monitor placed on him a while ago. Our available record indicated the patient underwent cardiac catheterization in 06/2017 which revealed dilated cardiomyopathy with ejection fraction in the range of 20% to 25% with patent coronaries. An echocardiogram was performed in the same month of 06/2017 revealed ejection fraction in the range of 30% to 35% with global hypokinesis and mild pulmonary hypertension. SOCIAL HISTORY: The patient is a smoker, EtOH abuser. MEDICATIONS: Cozaar 25 mg daily, Desyrel 50 mg at bedtime, aspirin 81 mg once a day, Lovenox 40 mg subcutaneous once a day, morphine sulfate 2 mg intravenously every 6 hours, thiamine 100 mg once a day, Plavix 75 mg once a day. PHYSICAL EXAMINATION: GENERAL: The patient is a middle-aged male who does not appear to be in acute distress. VITAL SIGNS: Blood pressure 131/83, heart rate 73, temperature 97.8, respirations 20. HEENT: Pale conjunctivae. CHEST: Bilateral rhonchi. HEART: S1, S2 are regular. ABDOMEN: Soft. EXTREMITIES: No edema. LABORATORY DATA: Hemoglobin and hematocrit 8.3 and 24.7, white count 5.1, platelet count 344,000. SMA-7: Sodium 141, potassium 4.7, chloride 101, CO2 of 19, glucose 88, BUN 27, creatinine 1.8. Three sets of troponins are negative. Alcohol level on admission was 351 and drug screen is positive for barbiturates. Chest x-ray reported no active disease. EKG revealed sinus rhythm at rate of 82 with prolonged QT interval. ASSESSMENT: 1. Exacerbation of congestive heart failure. 2. Alcohol intoxication. 3. Prerenal azotemia. 4. Anemia. RECOMMENDATIONS: Continue thiamine 100 mg orally daily, Cozaar 25 mg once a day, aspirin 81 mg once a day, Lovenox 40 mg subcutaneous once a day. Discontinue Plavix and start Coreg at 3.125 mg twice a day. Pool Smith MD
--- NOTE | 2018-04-02 09:36 | CP.PCM.PN ---
<Fermin Aguayo - Last Filed: 04/02/18 15:29> Subjective - Date & Time of Evaluation Date of Evaluation: 04/02/18 Time of Evaluation: 09:35 - Subjective Subjective: PGY2 Medicine Note for Dr. Bebeto Silveira Patient seen and examined this morning at bedside. No acute events overnight. Patient admits rib pain from previous falls. States he had fall "on father's day into a table at a restaurant." Admits pleuritic chest pain but denies fever , chills, SOB, abd pain, N/V. Objective - Vital Signs/Intake and Output Vital Signs (last 24 hours): Temp Pulse Resp BP Pulse Ox 97.9 F 65 20 123/78 100 04/02/18 08:22 04/02/18 08:22 04/02/18 08:22 04/02/18 08:22 04/02/18 08:22 Intake and Output: 04/02/18 04/02/18 06:59 18:59 Intake Total 600 Balance 600 - Medications Medications: Current Medications Aspirin (Ecotrin) 81 mg PO QAM [facility] Last Admin: 04/01/18 10:16 Dose: 81 mg Carvedilol (Coreg) 6.25 mg PO BID [facility] Diphenhydramine HCl (Benadryl) 25 mg PO Q6 PRN PRN Reason: Rash Enoxaparin Sodium (Lovenox) 40 mg SC DAILY [facility] Last Admin: 04/01/18 10:12 Dose: 40 mg Famotidine (Pepcid) 20 mg PO DAILY [facility] Last Admin: 04/01/18 10:13 Dose: 20 mg Folic Acid (Folic Acid) 1 mg PO DAILY [facility] Last Admin: 04/01/18 10:12 Dose: 1 mg Lorazepam (Ativan) 1 mg IVP Q3H PRN PRN Reason: Symptoms of alcohol withdrawl Losartan Potassium (Cozaar) 25 mg PO DAILY [facility] Last Admin: 04/01/18 10:13 Dose: 25 mg Magnesium Oxide (Mag-Ox) 400 mg PO DAILY [facility] Last Admin: 04/01/18 10:12 Dose: 400 mg Morphine Sulfate (Morphine) 2 mg IVP Q6H PRN PRN Reason: Pain, severe (8-10) Last Admin: 04/02/18 08:10 Dose: 2 mg Multivitamins (Hexavitamin) 1 tab PO DAILY [facility] Last Admin: 04/01/18 10:12 Dose: 1 tab Thiamine HCl (Vitamin B1 Tab) 100 mg PO DAILY [facility] Last Admin: 04/01/18 10:13 Dose: 100 mg Trazodone HCl (Desyrel) 50 mg PO HS PRN PRN Reason: Insomnia Last Admin: 03/31/18 22:10 Dose: 50 mg - Labs Labs: 03/31/18 11:54 03/31/18 11:54 PT 12.4 SECONDS (9.7-12.2) H 03/31/18 11:54 INR 1.1 03/31/18 11:54 APTT 27 SECONDS (21-34) 03/31/18 11:54 - Additional Findings Additional findings: - Constitutional Appears: Non-toxic, No Acute Distress - Head Exam Head Exam: ATRAUMATIC - Eye Exam Eye Exam: Normal appearance - ENT Exam ENT Exam: Mucous Membranes Moist - Neck Exam Neck Exam: absent: Lymphadenopathy - Respiratory Exam Respiratory Exam: Chest Wall Tenderness (Right sided pain reproducible to palpation over ribs 4-6), Clear to Ausculation Bilateral, NORMAL BREATHING PATTERN. absent: Accessory Muscle Use, Decreased Breath Sounds, Rales, Rhonchi , Wheezes, Respiratory Distress - Cardiovascular Exam Cardiovascular Exam: REGULAR RHYTHM (on tele), +S1, +S2 - GI/Abdominal Exam GI & Abdominal Exam: Soft, Normal Bowel Sounds. absent: Distended, Firm, Guarding, Rigid, Tenderness - Extremities Exam Extremities Exam: absent: Calf Tenderness, Pedal Edema - Neurological Exam Neurological Exam: Alert, Awake, Oriented x3 - Psychiatric Exam Psychiatric exam: Normal Affect, Normal Mood - Skin Skin Exam: Dry, Warm Assessment and Plan - Assessment and Plan (Free Text) Plan: Rib fractures 5 &6 CT Chest (04/02/18): Acute fx of right anterior 5/6 ribs. Chronic avulsion left 12th rib. Minor atelectasis and pleural thickening left posterior sulcus. Morphine 2mg IVP q6h prn Pleuritic Chest Pain Etiology: Rib fx of anterior 5/6 ribs. CXR - No acute disease EKG - NSR with left axis deviation and no acute ST/ T wave changes Trop neg x [address] -(04/02/18): Acute fx of right anterior 5/6 ribs. Chronic avulsion left 12th rib. Minor atelectasis and pleural thickening left posterior sulcus Morphine 2mg IVP q6h prn ASA 81mg PO Daily Coreg 6.25 mg PO BID Cardio consult - Dr. Smith - believed CHF exacerbation - stop plavix, start coreg ELISA upon admission Cr 1.8 Mag OX 400mg PO daily continue to monitor Pruritus on legs Benadryl 25mg PO q6h prn EtOH abuse disorder Alc upon admission 351 PO folic acid/MV/thiamine Ativan 1mg PO Q3 prn Elevated CPK Persistently elevated over multiple courses HTN Aspirin 81mg PO daily Losartan 25mg PO daily well controlled Prophylactic measures Lovenox 40mg IVP daily Pepcid 20mg PO Daily Zofran prn SCDs Trazodone 50mg PO HS prn Heart healthy diet All management per Dr. Bebeto Silveira <Pablo Silveira S - Last Filed: 04/03/18 08:36> Objective - Vital Signs/Intake and Output Vital Signs (last 24 hours): Temp Pulse Resp BP Pulse Ox 97.8 F 67 20 117/77 97 04/03/18 07:41 04/03/18 07:41 04/03/18 07:41 04/03/18 07:41 04/03/18 07:41 - Medications Medications: Current Medications Aspirin (Ecotrin) 81 mg PO QAM [facility] Last Admin: 04/02/18 10:01 Dose: 81 mg Carvedilol (Coreg) 12.5 mg PO BID [facility] Last Admin: 04/02/18 17:40 Dose: 12.5 mg Diphenhydramine HCl (Benadryl) 25 mg PO Q6 PRN PRN Reason: Rash Enoxaparin Sodium (Lovenox) 40 mg SC DAILY [facility] Last Admin: 04/02/18 10:01 Dose: 40 mg Famotidine (Pepcid) 20 mg PO DAILY [facility] Last Admin: 04/02/18 10:01 Dose: 20 mg Folic Acid (Folic Acid) 1 mg PO DAILY [facility] Last Admin: 04/02/18 10:01 Dose: 1 mg Lorazepam (Ativan) 1 mg IVP Q3H PRN PRN Reason: Symptoms of alcohol withdrawl Losartan Potassium (Cozaar) 25 mg PO DAILY [facility] Last Admin: 04/02/18 10:02 Dose: Not Given Magnesium Oxide (Mag-Ox) 400 mg PO DAILY [facility] Last Admin: 04/02/18 10:01 Dose: 400 mg Morphine Sulfate (Morphine) 2 mg IVP Q6H PRN PRN Reason: Pain, severe (8-10) Last Admin: 04/03/18 06:26 Dose: 2 mg Multivitamins (Hexavitamin) 1 tab PO DAILY [facility] Last Admin: 04/02/18 10:01 Dose: 1 tab Thiamine HCl (Vitamin B1 Tab) 100 mg PO DAILY [facility] Last Admin: 04/02/18 10:01 Dose: 100 mg Trazodone HCl (Desyrel) 50 mg PO HS PRN PRN Reason: Insomnia Last Admin: 04/02/18 22:18 Dose: 50 mg - Labs Labs: 04/03/18 07:51 04/03/18 07:51 PT 12.4 SECONDS (9.7-12.2) H 03/31/18 11:54 INR 1.1 03/31/18 11:54 APTT 27 SECONDS (21-34) 03/31/18 11:54 Attending/Attestation - Attestation I have personally seen and examined this patient.: Yes I have fully participated in the care of the patient.: Yes I have reviewed all pertinent clinical information, including history, physical exam and plan: Yes Notes (Text): 04/03/18 08:36 case seen and d.w staff and resident, concurred with finding and management..
[2018-04-02] MEDS: Magnesium Oxide 400 mg Tab UD PO SCH (10:01)
[2018-04-02] MEDS: Enoxaparin 40 mg Syringe SC SCH (10:01)
[2018-04-02] MEDS: Multiple Vitamins Tab PO SCH (10:01)
--- NOTE | 2018-04-02 10:07 | CT ---
PROCEDURE: CT chest dated 04/02/2018 HISTORY: Chest pain - r/o rib fx COMPARISON: Comparison made with CT chest dated 03/17/2018 TECHNIQUE: Contiguous helical/ transaxial images were obtained through the chest without intravenous contrast enhancement. Sagittal and coronal reconstructions were performed. Radiation dose (DLP): 444.5 mGy-cm. This CT exam was performed using one or more of the following dose reduction techniques: Automated exposure control, adjustment of the mA and/or kV according to patient size, and/or use of iterative reconstruction technique. FINDINGS: LUNGS: There are minor atelectasis and/or scarring with minimal localized pleural thickening left posterior sulcus. . . Remaining lung maldonado otherwise clear. No evidence of acute consolidation. No parenchymal masses or nodules seen. MEDIASTINUM: Unremarkable thoracic aorta. No aneurysm. Normal sized heart. Main pulmonary artery unremarkable. No vascular congestion. No significant mediastinal or hilar lymphadenopathy. . Multiple small nonspecific bilateral axillary lymph nodes are present. Central airways midline and patent with no large central endoluminal lesions PLEURA: No pleural fluid. No pneumothorax. BONES: There are acute fractures of the right anterior 5th and 6th ribs new since prior study 03/17/2018. Apparent tiny chronic unfused avulsion fracture involving tip left posterior 12th rib. Re- demonstrated is irregular lucency traversing right anterior costochondral junction that could represent an old on fused fracture and was present on prior study 09/22/2017. There are no acute compression fractures nor retropulsed fragments seen within the visualized Degenerative osteoarthritis left glenohumeral joint UPPER ABDOMEN: There are a few scattered calcifications within the splenic parenchyma ; rule out sequela of of chronic pancreatitis. There is small amount of infiltration and possibly some fluid in the left perinephric space. OTHER FINDINGS: None. IMPRESSION: There are acute fractures right anterior 5th and 6th ribs. Chronic avulsion fracture tip of the left 12th rib. Minor atelectasis of and pleural thickening left posterior sulcus.
[2018-04-02 11:38] LABS: BASO % 1.2 % (0.0-2.0); EOS # 0.2 K/uL (0.0-0.7); EOS % 5.8 % (0.0-4.0); HEMOGLOBIN 9.4 g/dL (12.0-18.0); LYMPH # 0.7 K/uL (1.0-4.3); LYMPH % 22.4 % (20.0-40.0); MEAN CELL VOLUME 95.4 fL (80.0-94.0); MEAN CORPUSCULAR HEMOGLOBIN 32.3 pg (27.0-31.0); MEAN CORPUSCULAR HGB CONC 33.9 g/dL (33.0-37.0); MEAN PLATELET VOLUME 8.9 fL (7.2-11.7); MONO # 0.3 K/uL (0.0-0.8); MONO % 7.8 % (0.0-10.0); NEUT # 2.1 K/uL (1.8-7.0); NEUT % 62.8 % (50.0-75.0); NRBC % 0.2 % (0.0-2.0); RBC 2.92 Mil/uL (4.40-5.90); RED CELL DISTRIBUTION WIDTH 15.8 % (11.5-14.5); WHITE BLOOD COUNT 3.3 K/uL (4.8-10.8)
[2018-04-02 12:15] LABS: BLOOD UREA NITROGEN 14 mg/dL (9-20); CALCIUM 8.9 mg/dl (8.6-10.4); GFR AFRICAN-AMERICAN > 60; GFR NON-AFRICAN AMERICAN > 60
--- NOTE | 2018-04-02 19:20 | CP.PCM.PN ---
Subjective - Date & Time of Evaluation Date of Evaluation: 04/02/18 Time of Evaluation: 09:20 - Subjective Subjective: clinically same Objective - Vital Signs/Intake and Output Vital Signs (last 24 hours): Temp Pulse Resp BP Pulse Ox 98.2 F 61 18 115/70 99 04/02/18 16:13 04/02/18 16:31 04/02/18 16:13 04/02/18 17:40 04/02/18 16:13 Intake and Output: 04/02/18 04/03/18 18:59 06:59 Intake Total 880 Balance 880 - Medications Medications: Current Medications Aspirin (Ecotrin) 81 mg PO QAM [facility] Last Admin: 04/02/18 10:01 Dose: 81 mg Carvedilol (Coreg) 12.5 mg PO BID [facility] Last Admin: 04/02/18 17:40 Dose: 12.5 mg Diphenhydramine HCl (Benadryl) 25 mg PO Q6 PRN PRN Reason: Rash Enoxaparin Sodium (Lovenox) 40 mg SC DAILY [facility] Last Admin: 04/02/18 10:01 Dose: 40 mg Famotidine (Pepcid) 20 mg PO DAILY [facility] Last Admin: 04/02/18 10:01 Dose: 20 mg Folic Acid (Folic Acid) 1 mg PO DAILY [facility] Last Admin: 04/02/18 10:01 Dose: 1 mg Lorazepam (Ativan) 1 mg IVP Q3H PRN PRN Reason: Symptoms of alcohol withdrawl Losartan Potassium (Cozaar) 25 mg PO DAILY [facility] Last Admin: 04/02/18 10:02 Dose: Not Given Magnesium Oxide (Mag-Ox) 400 mg PO DAILY [facility] Last Admin: 04/02/18 10:01 Dose: 400 mg Morphine Sulfate (Morphine) 2 mg IVP Q6H PRN PRN Reason: Pain, severe (8-10) Last Admin: 04/02/18 16:13 Dose: 2 mg Multivitamins (Hexavitamin) 1 tab PO DAILY [facility] Last Admin: 04/02/18 10:01 Dose: 1 tab Thiamine HCl (Vitamin B1 Tab) 100 mg PO DAILY [facility] Last Admin: 04/02/18 10:01 Dose: 100 mg Trazodone HCl (Desyrel) 50 mg PO HS PRN PRN Reason: Insomnia Last Admin: 03/31/18 22:10 Dose: 50 mg - Labs Labs: 04/02/18 11:29 04/02/18 11:29 PT 12.4 SECONDS (9.7-12.2) H 03/31/18 11:54 INR 1.1 03/31/18 11:54 APTT 27 SECONDS (21-34) 03/31/18 11:54 - Constitutional Appears: Well - Head Exam Head Exam: ATRAUMATIC, NORMAL INSPECTION, NORMOCEPHALIC - Eye Exam Eye Exam: EOMI, Normal appearance, PERRL Pupil Exam: NORMAL ACCOMODATION, PERRL - ENT Exam ENT Exam: Mucous Membranes Moist, Normal Exam - Neck Exam Neck Exam: Full ROM, Normal Inspection. absent: Lymphadenopathy - Respiratory Exam Respiratory Exam: Decreased Breath Sounds - Cardiovascular Exam Cardiovascular Exam: REGULAR RHYTHM, +S1, +S2 - GI/Abdominal Exam GI & Abdominal Exam: Soft, Diminished Bowel Sounds - Rectal Exam Rectal Exam: Deferred Assessment and Plan - Assessment and Plan (Free Text) Plan: Rib fractures 5 &6 CT Chest (04/02/18): Acute fx of right anterior 5/6 ribs. Chronic avulsion left 12th rib. Minor atelectasis and pleural thickening left posterior sulcus. Morphine 2mg IVP q6h prn Pleuritic Chest Pain Etiology: Rib fx of anterior 5/6 ribs. CXR - No acute disease EKG - NSR with left axis deviation and no acute ST/ T wave changes Trop neg x [address] -(04/02/18): Acute fx of right anterior 5/6 ribs. Chronic avulsion left 12th rib. Minor atelectasis and pleural thickening left posterior sulcus pt claimis he fell down 2 weeks ago..and pt has pain on right side around 5th adn6 th rib no hemothorax or pneumothorax Morphine 2mg IVP q6h prn ASA 81mg PO Daily Coreg 6.25 mg PO BID Cardio consult - Dr. Smith - believed CHF exacerbation - stop plavix, start coreg ELISA upon admission Cr 1.8 Mag OX 400mg PO daily continue to monitor Pruritus on legs Benadryl 25mg PO q6h prn EtOH abuse disorder Alc upon admission 351 PO folic acid/MV/thiamine Ativan 1mg PO Q3 prn Elevated CPK Persistently elevated over multiple courses HTN Aspirin 81mg PO daily Losartan 25mg PO daily well controlled Prophylactic measures Lovenox 40mg IVP daily Pepcid 20mg PO Daily Zofran prn SCDs Trazodone 50mg PO HS prn Heart healthy diet
--- NOTE | 2018-04-02 22:09 | PN ---
DATE: 04/02/2018 SUBJECTIVE: The patient was noted to have an 11-beat run of ventricular tachycardia yesterday. He denies any dizziness, chest pain, or shortness of breath today. PHYSICAL EXAMINATION: VITAL SIGNS: Blood pressure 123/80, heart rate 66, temperature 98.2, respirations 18. HEENT: Pale conjunctivae. CHEST: Clear. HEART: S1 and S2, regular. EXTREMITIES: No edema. LABORATORY DATA: Today's hemoglobin and hematocrit 9.4 and 27.8, white count 3.3, platelet count 195,000. Today's SMA-7 is within normal limits except for glucose of 142. ASSESSMENT: 1. Exacerbation of congestive heart failure. 2. Nonsustained ventricular tachycardia. 3. Alcohol intoxication. 4. Anemia. 5. Improved prerenal azotemia. RECOMMENDATIONS: Increase Coreg to 12.5 mg twice a day. Resume Cozaar 25 mg once a day. Continue aspirin 81 mg once a day, Lovenox 40 mg subcutaneously once a day. Obtain serum magnesium level. Pool Smith MD
[2018-04-03 01:39] VITALS: RESP 20
[2018-04-03 08:08] LABS: BASO % 1.1 % (0.0-2.0); EOS # 0.2 K/uL (0.0-0.7); EOS % 5.9 % (0.0-4.0); HEMOGLOBIN 9.1 g/dL (12.0-18.0); LYMPH # 1.1 K/uL (1.0-4.3); LYMPH % 30.2 % (20.0-40.0); MEAN CELL VOLUME 94.8 fL (80.0-94.0); MEAN CORPUSCULAR HEMOGLOBIN 32.4 pg (27.0-31.0); MEAN CORPUSCULAR HGB CONC 34.2 g/dL (33.0-37.0); MEAN PLATELET VOLUME 9.3 fL (7.2-11.7); MONO # 0.3 K/uL (0.0-0.8); MONO % 8.1 % (0.0-10.0); NEUT % 54.7 % (50.0-75.0); NRBC % 0.3 % (0.0-2.0); RBC 2.79 Mil/uL (4.40-5.90); RED CELL DISTRIBUTION WIDTH 15.1 % (11.5-14.5); WHITE BLOOD COUNT 3.6 K/uL (4.8-10.8)
[2018-04-03 08:21] LABS: ALB/GLOB RATIO 1.3 (1.0-2.1); ALBUMIN 3.8 g/dL (3.5-5.0); ALT/SGPT 31 U/L (21-72); AST/SGOT 45 U/L (17-59); BLOOD UREA NITROGEN 12 mg/dL (9-20); CALCIUM 8.8 mg/dl (8.6-10.4); GFR AFRICAN-AMERICAN > 60; GFR NON-AFRICAN AMERICAN > 60
[2018-04-03] MEDS ORDERED: Magnesium Sulfate 1 gm in D5W 1 GM/100 ML BAG IVPB ONE (08:38)
[2018-04-03] MEDS: Enoxaparin 40 mg Syringe SC SCH (10:03)
[2018-04-03] MEDS: Magnesium Oxide 400 mg Tab UD PO SCH (10:03)
[2018-04-03] MEDS: Multiple Vitamins Tab PO SCH (10:03)
--- NOTE | 2018-04-03 20:35 | CP.PCM.PN ---
Subjective - Date & Time of Evaluation Date of Evaluation: 04/03/18 Time of Evaluation: 09:20 - Subjective Subjective: clinically same Objective - Vital Signs/Intake and Output Vital Signs (last 24 hours): Temp Pulse Resp BP Pulse Ox 98.2 F 66 20 120/79 99 04/03/18 16:27 04/03/18 16:27 04/03/18 16:27 04/03/18 19:00 04/03/18 16:27 Intake and Output: 04/03/18 04/04/18 18:59 06:59 Intake Total 740 Balance 740 - Medications Medications: Current Medications Aspirin (Ecotrin) 81 mg PO QAM [facility] Last Admin: 04/03/18 10:03 Dose: 81 mg Carvedilol (Coreg) 12.5 mg PO BID [facility] Last Admin: 04/03/18 19:00 Dose: 12.5 mg Diphenhydramine HCl (Benadryl) 25 mg PO Q6 PRN PRN Reason: Rash Enoxaparin Sodium (Lovenox) 40 mg SC DAILY [facility] Last Admin: 04/03/18 10:03 Dose: 40 mg Famotidine (Pepcid) 20 mg PO DAILY [facility] Last Admin: 04/03/18 10:03 Dose: 20 mg Folic Acid (Folic Acid) 1 mg PO DAILY [facility] Last Admin: 04/03/18 10:03 Dose: 1 mg Lactulose (Enulose) 20 gm PO HS [facility] Lorazepam (Ativan) 1 mg IVP Q3H PRN PRN Reason: Symptoms of alcohol withdrawl Losartan Potassium (Cozaar) 25 mg PO DAILY [facility] Last Admin: 04/03/18 10:03 Dose: Not Given Magnesium Oxide (Mag-Ox) 400 mg PO DAILY [facility] Last Admin: 04/03/18 10:03 Dose: 400 mg Morphine Sulfate (Morphine) 2 mg IVP Q6H PRN PRN Reason: Pain, severe (8-10) Last Admin: 04/03/18 19:46 Dose: 2 mg Multivitamins (Hexavitamin) 1 tab PO DAILY [facility] Last Admin: 04/03/18 10:03 Dose: 1 tab Thiamine HCl (Vitamin B1 Tab) 100 mg PO DAILY [facility] Last Admin: 04/03/18 10:03 Dose: 100 mg Trazodone HCl (Desyrel) 50 mg PO HS PRN PRN Reason: Insomnia Last Admin: 04/02/18 22:18 Dose: 50 mg - Labs Labs: 04/03/18 07:51 04/03/18 07:51 PT 12.4 SECONDS (9.7-12.2) H 03/31/18 11:54 INR 1.1 03/31/18 11:54 APTT 27 SECONDS (21-34) 03/31/18 11:54 - Constitutional Appears: Well - Head Exam Head Exam: ATRAUMATIC, NORMAL INSPECTION, NORMOCEPHALIC - Eye Exam Eye Exam: EOMI, Normal appearance, PERRL Pupil Exam: NORMAL ACCOMODATION, PERRL - ENT Exam ENT Exam: Mucous Membranes Moist, Normal Exam - Neck Exam Neck Exam: Full ROM, Normal Inspection. absent: Lymphadenopathy - Respiratory Exam Respiratory Exam: Decreased Breath Sounds - Cardiovascular Exam Cardiovascular Exam: REGULAR RHYTHM, +S1, +S2 - GI/Abdominal Exam GI & Abdominal Exam: Soft, Diminished Bowel Sounds - Rectal Exam Rectal Exam: Deferred Assessment and Plan - Assessment and Plan (Free Text) Plan: Continue Benadryl as needed Lovenox and DVT prophylaxis Pain medicine morphine Status post CT scan revealed a fracture Discharge planning
--- NOTE | 2018-04-03 23:02 | PN ---
DATE: 04/03/2018 SUBJECTIVE: The patient denies any dizziness or palpitation. No reported ventricular tachycardia. OBJECTIVE: VITAL SIGNS: Blood pressure 118/82, heart rate 66, temperature 98.2, and respirations 20. HEENT: Pale conjunctivae. CHEST: Bilateral bibasilar rhonchi. HEART: S1 and S2, regular. EXTREMITIES: Trace leg edema. LABORATORY DATA: Today's SMA-7 is within normal limit. Magnesium level is low normal at 1.5. Today's hemoglobin and hematocrit 9.1 and 26.5. ASSESSMENT: 1. Cardiomyopathy. 2. Status post alcohol intoxication. 3. Hypomagnesemia. RECOMMENDATIONS: Continue thiamine 100 mg daily, magnesium oxide 400 mg p.o. daily, Lovenox 40 mg subcutaneously daily, aspirin 81 mg once a day, folic acid 1 mg once a day, Hexavitamin one tablet once a day, Coreg 12.5 mg twice a day, and Cozaar 25 mg once a day. The patient is currently receiving IV magnesium replacement at 1 g over 1 hour. Pool Smith MD
[2018-04-04] MEDS: Enoxaparin 40 mg Syringe SC SCH (09:25)
[2018-04-04] MEDS: Multiple Vitamins Tab PO SCH (09:26)
[2018-04-04] MEDS: Magnesium Oxide 400 mg Tab UD PO SCH (09:26)
--- NOTE | 2018-04-04 14:26 | CP.PCM.PN ---
Subjective - Date & Time of Evaluation Date of Evaluation: 04/04/18 Time of Evaluation: 09:20 - Subjective Subjective: clinically same Objective - Vital Signs/Intake and Output Vital Signs (last 24 hours): Temp Pulse Resp BP Pulse Ox 98.1 F 64 20 120/70 98 04/04/18 08:48 04/04/18 08:48 04/04/18 08:48 04/04/18 09:26 04/04/18 08:48 - Medications Medications: Current Medications Aspirin (Ecotrin) 81 mg PO QAM [facility] Last Admin: 04/04/18 09:26 Dose: 81 mg Carvedilol (Coreg) 12.5 mg PO BID [facility] Last Admin: 04/04/18 09:26 Dose: 12.5 mg Diphenhydramine HCl (Benadryl) 25 mg PO Q6 PRN PRN Reason: Rash Enoxaparin Sodium (Lovenox) 40 mg SC DAILY [facility] Last Admin: 04/04/18 09:25 Dose: 40 mg Famotidine (Pepcid) 20 mg PO DAILY [facility] Last Admin: 04/04/18 09:27 Dose: 20 mg Folic Acid (Folic Acid) 1 mg PO DAILY [facility] Last Admin: 04/04/18 09:26 Dose: 1 mg Lactulose (Enulose) 20 gm PO HS [facility] Last Admin: 04/03/18 21:52 Dose: Not Given Lorazepam (Ativan) 1 mg IVP Q3H PRN PRN Reason: Symptoms of alcohol withdrawl Losartan Potassium (Cozaar) 25 mg PO DAILY [facility] Last Admin: 04/04/18 09:26 Dose: 25 mg Magnesium Oxide (Mag-Ox) 400 mg PO DAILY [facility] Last Admin: 04/04/18 09:26 Dose: 400 mg Morphine Sulfate (Morphine) 2 mg IVP Q6H PRN PRN Reason: Pain, severe (8-10) Last Admin: 04/04/18 12:30 Dose: 2 mg Morphine Sulfate (Morphine) 2 mg IVP Q6 PRN PRN Reason: pain scale 8-10 Multivitamins (Hexavitamin) 1 tab PO DAILY [facility] Last Admin: 04/04/18 09:26 Dose: 1 tab Thiamine HCl (Vitamin B1 Tab) 100 mg PO DAILY [facility] Last Admin: 04/04/18 09:26 Dose: 100 mg Trazodone HCl (Desyrel) 50 mg PO HS PRN PRN Reason: Insomnia Last Admin: 04/03/18 21:53 Dose: 50 mg - Labs Labs: 04/03/18 07:51 04/03/18 07:51 PT 12.4 SECONDS (9.7-12.2) H 03/31/18 11:54 INR 1.1 03/31/18 11:54 APTT 27 SECONDS (21-34) 03/31/18 11:54 - Constitutional Appears: Well - Head Exam Head Exam: ATRAUMATIC, NORMAL INSPECTION, NORMOCEPHALIC - Eye Exam Eye Exam: EOMI, Normal appearance, PERRL Pupil Exam: NORMAL ACCOMODATION, PERRL - ENT Exam ENT Exam: Mucous Membranes Moist, Normal Exam - Neck Exam Neck Exam: Full ROM, Normal Inspection. absent: Lymphadenopathy - Respiratory Exam Respiratory Exam: Decreased Breath Sounds - Cardiovascular Exam Cardiovascular Exam: REGULAR RHYTHM, +S1, +S2 - GI/Abdominal Exam GI & Abdominal Exam: Soft, Diminished Bowel Sounds - Rectal Exam Rectal Exam: Deferred
--- NOTE | 2018-04-04 20:46 | PN ---
DATE: 04/04/2018 SUBJECTIVE: The patient is experiencing right rib pain. He denies any dizziness or syncope. PHYSICAL EXAMINATION: VITAL SIGNS: Blood pressure 120/70, heart rate 64, temperature 98.1, respirations 20. HEENT: Pale conjunctivae. CHEST: Clear. HEART: S1 and S2 regular. EXTREMITIES: No edema. ASSESSMENT: 1. Exacerbation of congestive heart failure. 2. Status post alcohol intoxication. 3. Acute fracture of the right anterior fifth and sixth ribs. RECOMMENDATIONS: Continue Ativan 1 mg intravenously every 3 hours p.r.n., every 6 hours, Coreg 12.5 mg once a day, Cozaar 25 mg once a day, aspirin 81 mg once a day, Hexavitamin one tablet once a day, magnesium oxide 400 mg once a day, Pepcid 20 mg once a day, thiamine 100 mg once a day. Pool Smith MD
--- NOTE | 2018-04-05 07:41 | CP.PCM.PN ---
Subjective - Date & Time of Evaluation Date of Evaluation: 04/05/18 Time of Evaluation: 07:40 - Subjective Subjective: Internal Medicine Progress Note - Dr Bebeto Silveira Service Patient seen and examined at bedside. Per nursing no acute events overnight. Patient is doing well, states that he is still having right sided rib pain. He is ambulating and tolerating diet. Offers no other complaints at this time. Denies headaches, dizziness, cp, palpitations, sob, abdominal pain, urinary symptoms. Objective - Vital Signs/Intake and Output Vital Signs (last 24 hours): Temp Pulse Resp BP Pulse Ox 97.8 F 66 20 130/74 97 04/05/18 00:00 04/05/18 00:00 04/05/18 00:00 04/05/18 00:00 04/05/18 00:00 - Medications Medications: Current Medications Aspirin (Ecotrin) 81 mg PO QAM [facility] Last Admin: 04/04/18 09:26 Dose: 81 mg Carvedilol (Coreg) 12.5 mg PO BID [facility] Last Admin: 04/04/18 18:50 Dose: 12.5 mg Diphenhydramine HCl (Benadryl) 25 mg PO Q6 PRN PRN Reason: Rash Enoxaparin Sodium (Lovenox) 40 mg SC DAILY [facility] Last Admin: 04/04/18 09:25 Dose: 40 mg Famotidine (Pepcid) 20 mg PO DAILY [facility] Last Admin: 04/04/18 09:27 Dose: 20 mg Folic Acid (Folic Acid) 1 mg PO DAILY [facility] Last Admin: 04/04/18 09:26 Dose: 1 mg Lactulose (Enulose) 20 gm PO HS [facility] Last Admin: 04/04/18 21:20 Dose: Not Given Lorazepam (Ativan) 1 mg IVP Q3H PRN PRN Reason: Symptoms of alcohol withdrawl Losartan Potassium (Cozaar) 25 mg PO DAILY [facility] Last Admin: 04/04/18 09:26 Dose: 25 mg Magnesium Oxide (Mag-Ox) 400 mg PO DAILY [facility] Last Admin: 04/04/18 09:26 Dose: 400 mg Morphine Sulfate (Morphine) 2 mg IVP Q6 PRN PRN Reason: pain scale 8-10 Last Admin: 04/05/18 02:22 Dose: 2 mg Multivitamins (Hexavitamin) 1 tab PO DAILY [facility] Last Admin: 04/04/18 09:26 Dose: 1 tab Thiamine HCl (Vitamin B1 Tab) 100 mg PO DAILY [facility] Last Admin: 04/04/18 09:26 Dose: 100 mg Trazodone HCl (Desyrel) 50 mg PO HS PRN PRN Reason: Insomnia Last Admin: 04/04/18 21:20 Dose: 50 mg - Labs Labs: 04/03/18 07:51 04/03/18 07:51 PT 12.4 SECONDS (9.7-12.2) H 03/31/18 11:54 INR 1.1 03/31/18 11:54 APTT 27 SECONDS (21-34) 03/31/18 11:54 - Constitutional Appears: Non-toxic, No Acute Distress - Head Exam Head Exam: ATRAUMATIC, NORMAL INSPECTION, NORMOCEPHALIC - Eye Exam Eye Exam: EOMI, Normal appearance Pupil Exam: NORMAL ACCOMODATION - ENT Exam ENT Exam: Mucous Membranes Moist - Neck Exam Neck Exam: Full ROM - Respiratory Exam Respiratory Exam: Clear to Ausculation Bilateral, NORMAL BREATHING PATTERN. absent: Rales, Rhonchi, Wheezes - Cardiovascular Exam Cardiovascular Exam: REGULAR RHYTHM, +S1, +S2 - GI/Abdominal Exam GI & Abdominal Exam: Soft, Normal Bowel Sounds. absent: Guarding, Rigid, Tenderness - Rectal Exam Rectal Exam: Deferred - Extremities Exam Extremities Exam: Normal Inspection - Back Exam Back Exam: NORMAL INSPECTION - Neurological Exam Neurological Exam: Alert, Awake, Oriented x3 - Psychiatric Exam Psychiatric exam: Normal Affect, Normal Mood - Skin Skin Exam: Dry, Normal Color, Warm Assessment and Plan - Assessment and Plan (Free Text) Assessment: A/P: Patient is a 62 year old male with past medical history of dilated cardiomyopathy, alcohol abuse who presented to the ED for left- sided chest pain and nausea with 1 episode of vomiting. Patient states that he experienced chest pain and he had 1 syncopal when he was at [facility] today. Patient was given Aspirin and Nitro in field. Rib fractures 5 &6 -Stable, afebrile -CT Chest (04/02/18): Acute fx of right anterior 5/6 ribs. Chronic avulsion left 12th rib. Minor atelectasis and pleural thickening left posterior sulcus. -Morphine 2mg IVP q6h prn Pleuritic Chest Pain/Hx of dilated cardiomyopathy -Likely secondatry to Rib fx of anterior 5/6 ribs. -CXR - No acute disease -EKG - NSR with left axis deviation and no acute ST/ T wave changes -Troponins neg x 3 -Morphine 2mg IVP q6h prn -Continue ASA 81mg PO Daily -Increased Coreg 12.5 mg PO BID -Cardiology on consult, help appreciated -Per Cardio, patient believed to have had CHF exacerbation -Cardiac catherization on 06/2017 showed EF 20-25% Acute Kidney Injury -On admission Cr 1.8, now resolved -Mag Oxide 400mg PO daily -continue to monitor Pruritus on legs -Benadryl 25mg PO q6h prn Alcohol abuse disorder -Alcohol level upon admission 351 -PO folic acid/MV/thiamine -Ativan 1mg PO Q3 prn Elevated CPK -Persistently elevated over multiple courses HTN -Aspirin 81mg PO daily -Losartan 25mg PO daily -Coreg 12.5mg PO BID Elevated LFTs -Hep C Reactive from prior visit -Please follow up with GI clinic at [facility] for further workup GI/DVT Prophylactic measures -Lovenox 40mg IVP daily -Pepcid 20mg PO Daily -Trazodone 50mg PO HS prn DISPO: Patient is medically cleared for discharge home. Will discharge home with Toradol 10mg PO Q8H prn. Patient to follow up with Dr Bebeto Silveira in the office on Thursday04/07/18. Plan discussed with Dr Silveira, All management per Dr. Bebeto Silveira. Sera Pittman DO PGY-2
[2018-04-05] MEDS: Enoxaparin 40 mg Syringe SC SCH (09:03)
[2018-04-05] MEDS: Magnesium Oxide 400 mg Tab UD PO SCH (09:04)
[2018-04-05] MEDS: Multiple Vitamins Tab PO SCH (09:04)
[2018-04-05 11:44] LABS: HEMOGLOBIN 9.1 g/dL (12.0-18.0); MEAN CELL VOLUME 96.1 fL (80.0-94.0); MEAN CORPUSCULAR HEMOGLOBIN 32.4 pg (27.0-31.0); MEAN CORPUSCULAR HGB CONC 33.7 g/dL (33.0-37.0); RBC 2.81 Mil/uL (4.40-5.90); RED CELL DISTRIBUTION WIDTH 15.6 % (11.5-14.5)
[2018-04-05 11:45] LABS: BASO % 0.9 % (0.0-2.0); EOS # 0.2 K/uL (0.0-0.7); LYMPH # 0.8 K/uL (1.0-4.3); LYMPH % 19.7 % (20.0-40.0); MEAN PLATELET VOLUME 9.7 fL (7.2-11.7); MONO # 0.4 K/uL (0.0-0.8); MONO % 8.8 % (0.0-10.0); NEUT # 2.6 K/uL (1.8-7.0); NEUT % 65.6 % (50.0-75.0); NRBC % 0.1 % (0.0-2.0)
[2018-04-05 12:18] LABS: ALB/GLOB RATIO 1.4 (1.0-2.1); ALT/SGPT 38 U/L (21-72); AST/SGOT 75 U/L (17-59); BLOOD UREA NITROGEN 16 mg/dL (9-20); CALCIUM 9.4 mg/dl (8.6-10.4); GFR AFRICAN-AMERICAN > 60; GFR NON-AFRICAN AMERICAN > 60
[2018-04-05] MEDS: Magnesium Sulfate 1 gm in D5W 1 GM/100 ML BAG IVPB SCH ×2 (15:45→16:08)
[2018-04-05 16:18] VITALS: BP 123/66; PULSE 68; TEMP 98.1; O2SAT 100
--- NOTE | 2018-04-05 19:12 | PN ---
DATE: 04/05/2018 SUBJECTIVE: The patient denies shortness of breath. He is experiencing sharp right-sided chest pain. PHYSICAL EXAMINATION: VITAL SIGNS: Blood pressure 125/80, heart rate 64, temperature 97.7, respiration 20. HEENT: Pale conjunctivae. CHEST: Bilateral rhonchi. HEART: S1 and S2 regular. Extremities: No edema. LABORATORY DATA: Hemoglobin and hematocrit 9.1 and 27.2, white count 4.2, platelet count 188,000. SMA-7 is within normal limits except glucose of 122 and chloride of 97. Today's magnesium is 1.4. ASSESSMENT: 1. Status post fall and right hip fractures. 2. Hypomagnesemia. 3. Nonsustained ventricular tachycardia. 4. Nonischemic cardiomyopathy. RECOMMENDATIONS: Continue Coreg 12.5 mg twice a day, Cozaar 25 mg once a day, aspirin 81 mg once a day, magnesium 2 mg was started today. Continue magnesium oxide at 400 mg daily. Pool Smith MD
== END 2018-04-05 17:39 | disposition home or self-care (01) | DRG 541 ==
LOC: C.ER 11:17 → C.9E 13:22 → C.5S 15:28 → OBSVTOIN 04-02 15:28
PROVIDERS: ADMIT Internal Medicine Nephrology; ATTEND Internal Medicine Nephrology
DX: S22.41XA Multiple fractures of ribs, right side, initial encounter for closed fracture (principal); R07.81 Pleurodynia; N17.9 Acute kidney failure, unspecified; I50.9 Heart failure, unspecified; I47.2 Ventricular tachycardia; I42.0 Dilated cardiomyopathy; I11.0 Hypertensive heart disease with heart failure; E86.0 Dehydration; B19.20 Unspecified viral hepatitis C without hepatic coma; I27.20 Pulmonary hypertension, unspecified; E83.42 Hypomagnesemia; F17.200 Nicotine dependence, unspecified, uncomplicated; F10.129 Alcohol abuse with intoxication, unspecified; D64.9 Anemia, unspecified; E11.9 Type 2 diabetes mellitus without complications; L29.9 Pruritus, unspecified; W18.39XA Other fall on same level, initial encounter; Y92.511 Restaurant or cafe as the place of occurrence of the external cause; Z91.81 History of falling; Z98.42 Cataract extraction status, left eye; Z87.11 Personal history of peptic ulcer disease; Z79.899 Other long term (current) drug therapy; Z79.82 Long term (current) use of aspirin; Z98.41 Cataract extraction status, right eye

== ENCOUNTER 2018-04-10 17:06 | Emergency (ER) | payer MEDICAID ==
[2018-04-10 17:06] VITALS: BMI 24.8
[2018-04-10 17:21] VITALS: TEMP 98
[2018-04-10] MEDS ORDERED: Aspirin 325 mg EC Tablets PO STA (18:05)
[2018-04-10 19:12] VITALS: O2SAT 100
[2018-04-10 19:18] LABS: EOS # 0.1 K/uL (0.0-0.7); EOS % 3.9 % (0.0-4.0); HEMOGLOBIN 8.3 g/dL (12.0-18.0); LYMPH # 1.2 K/uL (1.0-4.3); LYMPH % 38.6 % (20.0-40.0); MEAN CORPUSCULAR HGB CONC 33.3 g/dL (33.0-37.0); MEAN PLATELET VOLUME 9.2 fL (7.2-11.7); MONO # 0.5 K/uL (0.0-0.8); MONO % 16.3 % (0.0-10.0); NEUT # 1.2 K/uL (1.8-7.0); NEUT % 40.2 % (50.0-75.0); NRBC % 0.1 % (0.0-2.0); RBC 2.59 Mil/uL (4.40-5.90); RED CELL DISTRIBUTION WIDTH 15.2 % (11.5-14.5)
[2018-04-10 19:25] LABS: ALB/GLOB RATIO 1.6 (1.0-2.1); ALBUMIN 4.6 g/dL (3.5-5.0); ALT/SGPT 41 U/L (21-72); AST/SGOT 69 U/L (17-59); BLOOD UREA NITROGEN 22 mg/dL (9-20); CALCIUM 9.1 mg/dl (8.6-10.4); GFR AFRICAN-AMERICAN 53; GFR NON-AFRICAN AMERICAN 44; LIPASE 436 U/L (23-300)
[2018-04-10 19:35] LABS: CK-MB 0.68 ng/mL (0.0-3.38)
[2018-04-10] MEDS ORDERED: Sodium Chloride 0.9% 500 ML IV ONE (19:37)
--- NOTE | 2018-04-10 20:37 | C.PDOC ---
History Of Present Illness Pt c/o right sided chest pain. He was recently diagnosed with right sided rib fractures. Time Seen by Provider: 04/10/18 17:54 Chief Complaint (Nursing): Chest Pain History Per: Patient Onset/Duration Of Symptoms: Days Current Symptoms Are (Timing): Still Present Severity: Moderate Quality: "Pain" Associated Symptoms: denies: Nausea, Dyspnea, Diaphoresis, Syncope Exacerbating Factors: Turning, Movement, Deep Breathing Additional History Per: Prior Records Past Medical History Reviewed: Historical Data, Nursing Documentation, Vital Signs Vital Signs: Last Vital Signs Temp 98 F 04/10/18 17:18 Pulse 89 04/10/18 19:11 Resp 16 04/10/18 19:11 BP 140/72 04/10/18 19:11 Pulse Ox 100 04/10/18 19:11 - Medical History PMH: Anemia, Anxiety, Arthritis, CHF, Depression, Gastritis, Gastrointestinal Ulcer (PEPTIC), HTN, Pancreatitis, Peripheral Edema Surgical History: - [facility] Procedures ALCOHOL DETOXIFICATION (05/03/13) DETOXIFICATION SERVICES FOR SUBSTANCE ABUSE TREATMENT (07/13/17) EXCISION OF DESCENDING COLON, ENDO, DIAGN (03/16/18) EXCISION OF STOMACH, ENDO, DIAGN (03/16/18) EXTIRPATION OF MATTER FROM LARGE INTESTINE, ENDO (01/09/17) FLUOROSCOPY OF LEFT HEART USING LOW OSMOLAR CONTRAST (07/13/17) FLUOROSCOPY OF MULT COR ART USING L OSM CONTRAST (07/13/17) GROUP PSYCHOTHERAPY (01/24/16) INSERT OF MONITOR DEV INTO CHEST SUBCU/FASCIA, OPEN APPROACH (12/18/16) INSPECTION OF UPPER INTESTINAL TRACT, ENDO (03/16/18) MEASURE OF ARTERIAL PRESSURE, PERIPHERAL, CORSETS SALESPERSON APPROACH (12/18/16) MEASURE OF CARDIAC SAMPL & PRESSURE, L HEART, PERC APPROACH (07/13/17) MEASUREMENT OF CARDIAC RHYTHM, EXTERNAL APPROACH (12/18/16) TRANSFUSE NONAUT RED BLOOD CELLS IN PERIPH ART, PERC (01/09/17) TRANSFUSE NONAUT RED BLOOD CELLS IN PERIPH VEIN, PERC (03/16/18) Family History: States: Unknown Family Hx - Social History Hx Tobacco Use: No (quit 2 months now) Hx Alcohol Use: No Hx Substance Use: No - Immunization History Hx Tetanus Toxoid Vaccination: Yes Hx Influenza Vaccination: Yes Hx Pneumococcal Vaccination: No Review Of Systems Except As Marked, All Systems Reviewed And Found Negative. Constitutional: Negative for: Fever, Weakness Respiratory: Negative for: Shortness of Breath, Hemoptysis Gastrointestinal: Negative for: Abdominal Pain Musculoskeletal: Negative for: Neck Pain, Back Pain, Leg Pain Skin: Negative for: Rash Neurological: Negative for: Weakness, Numbness, Seizures Physical Exam - Physical Exam Appears: Non-toxic, No Acute Distress Skin: Normal Color, Warm, Dry, No Rash Head: Atraumatic, Normacephalic Eye(s): bilateral: Normal Inspection, PERRL, EOMI Neck: Normal ROM, Supple Chest: Symmetrical, No Deformity, Tenderness (right side), No Ecchymosis, No Subcutaneous Emphysema Cardiovascular: Rhythm Regular Respiratory: Normal Breath Sounds, No Accessory Muscle Use Gastrointestinal/Abdominal: Soft, No Tenderness Back: No CVA Tenderness, No Vertebral Tenderness Extremity: Normal ROM, No Pedal Edema, No Calf Tenderness, No Deformity Neurological/Psych: Oriented x3, Normal Motor, Normal Sensation ED Course And Treatment - Laboratory Results Result Diagrams: 04/10/18 19:01 04/10/18 19:01 ECG: Interpreted By Me, Viewed By Me ECG Rhythm: Sinus Rhythm, Nonspecific Changes Rate From EC O2 Sat by Pulse Oximetry: 100 Pulse Ox Interpretation: Normal - Radiology CXR: Interpreted by Me, Viewed By Me CXR Interpretation: Yes: No Acute Disease Reassessment Condition: Improved Disposition Counseled Patient/Family Regarding: Studies Performed, Diagnosis, Need For Followup - Disposition Disposition: HOME/ ROUTINE Disposition Time: 20:38 Condition: IMPROVED Additional Instructions: Avoid alcohol. Your heart is not healthy enough for exercise, so refrain from playing sports. Follow up with your doctor for further evaluation and treatment. Return to the ER if you develop shortness of breath, pass out, dizziness, worsening of symptoms or if you have any other concerns. Instructions: Rib Fracture (DC), Effects of Alcohol on Your Health - Clinical Impression Clinical Impression: Right rib fracture, Alcohol abuse
[2018-04-10 20:53] VITALS: BP 105/65; PULSE 65; RESP 14
--- NOTE | 2018-04-11 07:43 | RAD ---
Chest x-ray single frontal view History: Chest pain. Comparison: 03/31/2018 Findings: Upper lobe granulomatous changes. No focal infiltrate or effusion. Tortuous aorta. Heart size within normal limits. Degenerative changes in the spine. Impression: No focal infiltrate or effusion.
== END 2018-04-10 20:45 | disposition home or self-care (01) ==
LOC: C.ER 17:06
DX: F10.10 Alcohol abuse, uncomplicated (principal); S22.31XA Fracture of one rib, right side, initial encounter for closed fracture; X58.XXXA Exposure to other specified factors, initial encounter; I50.9 Heart failure, unspecified; I10 Essential (primary) hypertension
CPT/HCPCS: 71045; 80053; 80320; 83690; 83735; 84484; 85025; 99283; J7040

== ENCOUNTER 2018-05-15 12:41 | Inpatient (IN) | payer MEDICAID ==
[2018-05-15 12:41] VITALS: BMI 24.8
[2018-05-15 13:41] LABS: BASO # 0.1 K/uL (0.0-0.2); BASO % 1.4 % (0.0-2.0); EOS # 0.1 K/uL (0.0-0.7); EOS % 1.6 % (0.0-4.0); HEMOGLOBIN 9.6 g/dL (12.0-18.0); LYMPH # 1.6 K/uL (1.0-4.3); MEAN CELL VOLUME 93.8 fL (80.0-94.0); MEAN CORPUSCULAR HEMOGLOBIN 31.8 pg (27.0-31.0); MEAN CORPUSCULAR HGB CONC 33.9 g/dL (33.0-37.0); MEAN PLATELET VOLUME 8.4 fL (7.2-11.7); MONO # 0.5 K/uL (0.0-0.8); MONO % 12.6 % (0.0-10.0); NEUT # 1.9 K/uL (1.8-7.0); NEUT % 46.4 % (50.0-75.0); NRBC % 0.1 % (0.0-2.0); RBC 3.01 Mil/uL (4.40-5.90); RED CELL DISTRIBUTION WIDTH 15.2 % (11.5-14.5); WHITE BLOOD COUNT 4.2 K/uL (4.8-10.8)
[2018-05-15 13:55] LABS: SQUAMOUS EPITHIAL 38 /hpf (0-5); URINE BACTERIA RARE (<OCC); URINE BILIRUBIN NEGATIVE (NEGATIVE); URINE BLOOD NEGATIVE (NEGATIVE); URINE CLARITY Hazy (Clear); URINE COLOR Yellow (YELLOW); URINE GLUCOSE (UA) NORMAL (Normal); URINE LEUKOCYTE ESTERASE 3+ Leu/uL (Negative); URINE PROTEIN 2+ mg/dL (NEGATIVE); URINE UROBILINOGEN NORMAL mg/dL (0.2-1.0)
[2018-05-15 14:00] LABS: ALB/GLOB RATIO 1.3 (1.0-2.1); ALBUMIN 4.9 g/dL (3.5-5.0); CALCIUM 8.7 mg/dl (8.6-10.4)
--- NOTE | 2018-05-15 14:06 | C.PDOC ---
History Of Present Illness 62 year old male presents to ED requesting detox for alcohol abuse. Patient reports he drinks 1.5-2 pints of vodka daily with his last drink being earlier this morning. He states he has a "heart condition" and has an implantable monitor, but states he has not had any cardiac issues for more than a year. Denies drug abuse, tobacco use. Chief Complaint (Nursing): Substance Abuse History Per: Patient History/Exam Limitations: no limitations Onset/Duration Of Symptoms: Days Current Symptoms Are (Timing): Still Present Recent travel outside of the [place]: No Past Medical History Reviewed: Historical Data, Nursing Documentation, Vital Signs Vital Signs: Last Vital Signs Temp 97.7 F 05/15/18 16:59 Pulse 70 05/15/18 16:59 Resp 16 05/15/18 16:59 BP 134/81 05/15/18 16:59 Pulse Ox 97 05/15/18 16:59 - Medical History PMH: Anemia, Anxiety, Arthritis, CHF, Depression, Gastritis, Gastrointestinal Ulcer (PEPTIC), HTN, Pancreatitis, Peripheral Edema Denies: Kidney Stones, Chronic Kidney Disease, Seizures, Sexually Transmitted Disease Surgical History: No Surg Hx - [facility] Procedures ALCOHOL DETOXIFICATION (05/03/13) DETOXIFICATION SERVICES FOR SUBSTANCE ABUSE TREATMENT (07/13/17) EXCISION OF DESCENDING COLON, ENDO, DIAGN (03/16/18) EXCISION OF STOMACH, ENDO, DIAGN (03/16/18) EXTIRPATION OF MATTER FROM LARGE INTESTINE, ENDO (01/09/17) FLUOROSCOPY OF LEFT HEART USING LOW OSMOLAR CONTRAST (07/13/17) FLUOROSCOPY OF MULT COR ART USING L OSM CONTRAST (07/13/17) GROUP PSYCHOTHERAPY (01/24/16) INSERT OF MONITOR DEV INTO CHEST SUBCU/FASCIA, OPEN APPROACH (12/18/16) INSPECTION OF UPPER INTESTINAL TRACT, ENDO (03/16/18) MEASURE OF ARTERIAL PRESSURE, PERIPHERAL, INSPECTOR SOLDERING APPROACH (12/18/16) MEASURE OF CARDIAC SAMPL & PRESSURE, L HEART, PERC APPROACH (07/13/17) MEASUREMENT OF CARDIAC RHYTHM, EXTERNAL APPROACH (12/18/16) TRANSFUSE NONAUT RED BLOOD CELLS IN PERIPH ART, PERC (01/09/17) TRANSFUSE NONAUT RED BLOOD CELLS IN PERIPH VEIN, PERC (03/16/18) Family History: States: No Known Family Hx - Social History Hx Tobacco Use: No (quit 2 months now) Hx Alcohol Use: No Hx Substance Use: No - Immunization History Hx Tetanus Toxoid Vaccination: Yes Hx Influenza Vaccination: Yes Hx Pneumococcal Vaccination: No Review Of Systems Except As Marked, All Systems Reviewed And Found Negative. Constitutional: Negative for: Fever, Chills Cardiovascular: Negative for: Chest Pain Respiratory: Negative for: Cough, Shortness of Breath Gastrointestinal: Negative for: Nausea, Vomiting Neurological: Negative for: Weakness, Numbness Physical Exam - Physical Exam Appears: Non-toxic, No Acute Distress Skin: Warm, Dry Head: Atraumatic, Normacephalic Eye(s): bilateral: Normal Inspection, PERRL, EOMI Oral Mucosa: Moist Neck: Supple Chest: Symmetrical Cardiovascular: Rhythm Regular Respiratory: Normal Breath Sounds Gastrointestinal/Abdominal: Soft, No Tenderness Extremity: Normal ROM Neurological/Psych: Oriented x3 Gait: Steady ED Course And Treatment - Laboratory Results Result Diagrams: 05/15/18 13:35 05/15/18 13:35 O2 Sat by Pulse Oximetry: 97 (RA) Pulse Ox Interpretation: Normal Medical Decision Making Medical Decision Making: Impression: Alcohol detox Plan: * Labs * Urinalysis Patient is medically cleared. Disposition - Disposition Disposition: HOSPITALIZED Disposition Time: 14:30 Condition: STABLE - Clinical Impression Clinical Impression: Alcohol abuse, Alcohol intoxication - Scribe Statement The provider has reviewed the documentation as recorded by the Ava Iqbal Jose Elias Provider Attestation: All medical record entries made by the Ava were at my direction and personally dictated by me. I have reviewed the chart and agree that the record accurately reflects my personal performance of the history, physical exam, medical decision making, and the department course for this patient. I have also personally directed, reviewed, and agree with the discharge instructions and disposition.
[2018-05-15 14:11] LABS: BARBITURATES, UR NEGATIVE (NEGATIVE); BENZODIAZEPINES, UR NEGATIVE (NEGATIVE); OPIATES, UR NEGATIVE (NEGATIVE); PHENCYCLIDINE, UR NEGATIVE (NEGATIVE)
--- NOTE | 2018-05-15 18:50 | PCM.BM ---
<Angela Montana - Last Filed: 05/15/18 18:49> Treatment Plan Problems - Problems identified on initial assessmt potiential for autonomic instability related to alcohol withdrawal Date Initiated: 05/15/18 Time Initiated: 18:49 Assessment reference: NA Status: Active Treatment assets and liabiliti Patient Assests: ADL independent, cognitively intact Patient Liabilities: substance abuse, medical problems - Milieu Protocol Maintain good personal hygiene: daily Encourage regular showers, daily Remind patient to perform daily oral care, daily Assist patient to perform ADL's Maintain personal safety: every shift Educate patient to report safety concerns to staff, every shift Monitor environment for contraband/sharps Medication safety: Monitor for expected outcome, potential side effects: every shift, Assess barriers to learning: every shift, Assess readiness for medication education: every shift <Milana Arrieta - Last Filed: 05/17/18 09:33> Family Contact Family involvement: No known Family/SO - Goals for Treatment Patient goals for treatment: Complete detox and apply for inpatient rehab. Discharge/Continuing Care - Education Needs Education Needs: Patient Medication, Patient Diagnosis/Disease Process, Patient Coping Skills, Patient Anger Management skills, Patient Placement options, Patient Community resources, Patient Personal Hygiene/Grooming (homeless) - Discharge Discharge Criteria: Ability to care for self, No longer exhibiting s/s of withdrawal, Reduction of target symptoms Discharge to:: Substance Abuse Rehab - Treatment Team Participation Patient/Family/SO Statement: 05/17/18 09:34 "I wanna go to inpatient...I'm homeless." Discussed with Family/SO: No Was Patient/Family/SO present at Treatment Team Meeting: Yes <Johnny Osorio - Last Filed: 05/17/18 22:57> - Diagnosis (1) Alcohol abuse Status: Acute Interventions: 05/17/18 22:56 * Assess 7x/week regarding severity of withdrawal * Educate regarding risks, benefits, side effects and alternatives of medications * Use Motivational Interviewing for abstinence * Use CBT for relapse prevention * Medication management for withdrawal symptoms * Encourage medication assisted treatment *
[2018-05-16] MEDS: Aluminum Hydroxide/Magnesium Hydroxide Susp (30 mL) PO PRN (18:12)
--- NOTE | 2018-05-16 20:35 | PCM.PSYCH ---
Initial Psychiatric Evaluation - Initial Psychiatric Evaluation Type of Admission: Voluntary Legal Status: Capacity Chief Complaint (in patient's own words): I NNEED TO ET CLEAN OR MY SISTER WON'T LET ME STAY IN HER HOME Patient's Reaction to Hospitalization: I NEED HELP History of Present Illness and Precipitating Events: PT IS A 61 YEAR OLD BLACK HOMELESS RETIRED MALE WHO CAME TO ED SEEKING HELP WITH HIS ALCOHOL ADDICTION.PT STARTED DRINKING WHEN HE WAS IN GRAMMAR SCHOOL. PT STATED THAT HIS PARENTS DRANK HEAVILY. ONE OF HIS BROTHERS DUE TO SUBSTANCE ABUSE AND ANOTHER BROTHER IS AN ALCOHOLIC. PT HAS HAD ONE DETOX AT [facility] SEVERAL YEARS AGO. HE HAS NEVER BEEN IN ANY REHABS.PT HAS BEEN DRINKING A PINT OF VODKA A DAY FOR THE LAST SEVERAL MONTHS. THE LONGEST PERIOD PT HAS BEEN VOLUNTARILY SOBER IS ONE WEEK. 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 PT HAS NO LEGAL OR HISTORY. HE HAS FIVE DAUGHTERS WITH DIFFERENT WOMEN.HE WENT UP TO THE ELEVENTH GRADE. PT HAS A COMPLICATED MEDICAL HISTORY DUE TO HIS ALCOHOL USE DISORDER. 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 Current Medications: Active Medications Generic Name Dose Route Start Last Admin Trade Name Freq PRN Reason Stop Dose Admin Al Hydrox/Mg Hydrox/Simethicone 30 ml 05/16/18 18:03 05/16/18 18:12 Maalox 30 Ml PO 30 ml Q8 PRN Administration Indigestion / Heartburn Aspirin 81 mg 05/16/18 14:45 05/16/18 14:57 Aspirin Chewable PO 81 mg DAILY ALBERTO Administration Hydroxyzine HCl 25 mg 05/15/18 20:01 05/16/18 18:12 Atarax PO 25 mg Q6 PRN Administration Anxiety Lorazepam 2 mg 05/15/18 20:15 05/16/18 19:33 Ativan PO 05/20/18 20:14 2 mg Q4H ALBERTO Administration Taper Lorazepam 1 mg 05/15/18 20:08 05/16/18 18:13 Ativan PO 1 mg Q4H PRN Administration Symptoms of alcohol withdrawl Ondansetron HCl 4 mg 05/16/18 18:02 05/16/18 18:12 Zofran Tab PO 4 mg Q8 PRN Administration Nausea/Vomiting Pneumococcal Polyvalent Vaccine 0.5 ml 05/18/18 10:00 Pneumovax 23 Vaccine IM 05/18/18 10:01 .ONCE ONE Trazodone HCl 50 mg 05/15/18 19:59 05/15/18 21:05 Desyrel PO 50 mg HS PRN Administration Insomnia Past Psychiatric History - Past Psychiatric History Previous Treatment History: None Pertinent Medical Hx (Current Medical&Sleep Prob, Allergies): Allergies Allergy/AdvReac Type Severity Reaction Status Date / Time Iodinated Contrast- Oral and Allergy Severe SWELLING Verified 03/31/18 11:31 IV Dye shellfish derived Allergy Intermediate RASH Verified 03/31/18 11:31 milk AdvReac Intermediate DIARRHEA Verified 03/31/18 11:31 Aspirin [Ecotrin] 81 mg PO QAM #30 tabec 02/26/18 Folic Acid 1 mg PO DAILY #30 tab 02/26/18 Thiamine [Vitamin B1 Tab] 100 mg PO DAILY #30 tab 02/26/18 Losartan [Cozaar] 25 mg PO DAILY #30 tab 03/24/18 Magnesium Oxide [Magnesium] 400 mg PO DAILY #30 tablet 03/24/18 Multivitamins [Hexavitamin] 1 tab PO DAILY #30 tab 03/24/18 Pantoprazole [Protonix EC Tab] 40 mg PO DAILY #30 ect 03/24/18 traZODone [Desyrel] 50 mg PO HS PRN #30 tab 03/24/18 Carvedilol [Coreg] 12.5 mg PO BID #60 tab 04/05/18 Ketorolac Tromethamine [Toradol] 10 mg PO Q8H PRN #15 tab 04/05/18 Review of Systems - Review of Systems Systems not reviewed;Unavailable: Acuity of Condition - Constitutional Constitutional: Malaise - EENT Eyes: UNREMARKABLE Ears: UNREMARKABLE Nose/Mouth/Throat: UNREMARKABLE - Cardiovascular Cardiovascular: UNREMARKABLE - Respiratory Respiratory: UNREMARKABLE - Gastrointestinal Gastrointestinal: Dyspepsia - Genitourinary Genitourinary: UNREMARKABLE - Reproductive: Male Reproductive:Male: UNREMARKABLE - Musculoskeletal Musculoskeletal: Tingling - Integumentary Integumentary: UNREMARKABLE - Neurological Neurological: Tremor - Endocrine Endocrine: UNREMARKABLE - Hematologic/Lymphatic Hematologic: UNREMARKABLE Mental Status Examination - Personal Presentation Personal Presentation: Looks older than stated age - Affect Affect: Constricted - Motor Activity Motor Activity: Calm - Reliability in Providing Information Reliability in Providing Information: Good - Speech Speech: Organized - Mood Mood: Anxious - Formal Thought Process Formal Thought Process: No Impairment - Obsessions/Compulsions Obsessions: None Compulsions: None - Cognitive Functions Orientation: Person, Place, Situation Sensorium: Alert, Drowsy Attention/Concentration: Attentive Abstract Thinking: As evidence by abstract perception of proverbs Estimate of Intelligence: Average Judgement: Intact, as evidence by: Good judgement Memory: Recent intact, as evidence by: Ability to recall events of the day, Remote intact, as evidenced by: Abilit to recall sig. life events - Risk Risk: Withdrawal, Falls - Strength & Assets Inventory Strength & Assets Inventory: Education, Employment history, Life experience, Cooperative - Limitations Additional comments: UNDOMICILED DSM 5 DX - Recommended/Plan of Treatment Treatment Recommendations and Plan of Treatment: ALCOHOL WITHDRAWAL ATIVAN TAPER PRN MEDICATIONS FOR WITHDRAWAL SYMPTOMS THIAMINE FOLIC ACID ALCOHOL USE DISORDER [place] [facility] SUPPORTIVE PSYCHOTHERAPY CARDIAC SYMPTOMS BABY ASPIRIN Projected ELOS: 6 DAYS Prognosis: GOOD WITH CONTINUED TREQTMENT Discharge Plan and Discharge Criteria: REFER TO DRAFTING TECHNICIAN REHAB NO ACUTE WITHDRAWAL SYMPTOMS
[2018-05-17] MEDS: Multiple Vitamins Tab PO SCH (10:38)
--- NOTE | 2018-05-17 15:13 | PCM.PYCHPN ---
Psychiatric Progress Note - Psychiatric Progress Note Patient seen today, length of contact: 16 min Patient Chief Complaint: "I have withdrawal symptoms" Problems Identified/Issues Discussed: The pt is seen, chart reviewed, case discussed with staff. Pt complains of body aches, poor sleep, experiencing shakes, and that he has been having chest pain which gets worse when he breathes since last night. Says that his appetite is good. The pt is compliant with medications and reports no side-effects. Symptoms are improving but needs more time to stabilize. Pt attends groups and activities. Support given, psycho-education provided. After care discussed. Mental Status Examination - Cognitive Function Orientation: Person, Place, Situation Memory: Intact Attention: WNL Concentration: WNL Association: WNL Fund of Knowledge: WNL - Mood Mood: Anxious - Affect Affect: Constricted - Speech Speech: Appropriate - Formal Thought Process Formal Thought Process: No Impairment - Suicidal Ideation Suicidal Ideation: No - Homicidal Ideation Homicidal Ideation: No Goal/Treatment Plan - Goal/Treatment Plan Progress Toward Problem(s) and Goals/Treatment Plan: Taper with Ativan As needed medications, Atarax for anxiety All risks, benefits and alternatives of the meds discussed, and the pt agreed and understood. Attend groups and activities Supportive therapy and psychoeducation [place] for abstinence CBT for relapse prevention Encourage MAT Refer to rehab or IOP, and self-help groups Developing coping mechanisms for preventing relapse Follow up with primary care doctor if needed 16 min
[2018-05-18] MEDS ORDERED: Pneumococcal 23-Valent Vaccine IM ONE (10:00)
[2018-05-18] MEDS: Multiple Vitamins Tab PO SCH (11:17)
--- NOTE | 2018-05-18 14:33 | PCM.PYCHPN ---
Psychiatric Progress Note - Psychiatric Progress Note Patient seen today, length of contact: 16 min Patient Chief Complaint: "I am still having withdrawals." Problems Identified/Issues Discussed: Pt is seen, chart reviewed, case discussed with staff. Pt is compliant with medications and reports no side-effects. Symptoms are improving but needs more time to stabilize. Pt reports ok sleep with a fluctuating mood; pt says that the tremors are improving but still persist; pt still has no plan for after his discharge. After care discussed. Medication Change: No Medical Record Reviewed: No Mental Status Examination - Cognitive Function Orientation: Person, Place, Situation Memory: Intact Attention: WNL Concentration: WNL Association: WNL Fund of Knowledge: WNL - Mood Mood: Anxious - Affect Affect: Constricted - Speech Speech: Appropriate - Formal Thought Process Formal Thought Process: No Impairment - Suicidal Ideation Suicidal Ideation: No - Homicidal Ideation Homicidal Ideation: No Goal/Treatment Plan - Goal/Treatment Plan Need for Continued Stay: Discharge may exacerbated symptoms, Failed transitioning Progress Toward Problem(s) and Goals/Treatment Plan: Continue medications. Support and psychoeducation daily Attend groups and activities daily After care planning by TAO 15 min
[2018-05-19] MEDS: Multiple Vitamins Tab PO SCH (09:19)
--- NOTE | 2018-05-19 13:13 | PCM.PYCHPN ---
Psychiatric Progress Note - Psychiatric Progress Note Patient seen today, length of contact: 16 min Patient Chief Complaint: "I am not doing well" Problems Identified/Issues Discussed: The pt is seen, chart reviewed, case discussed with staff. The pt is compliant with medications and reports no side-effects. Symptoms are improving but needs more time to stabilize. Pt attends groups and activities. Support given, psycho-education provided. After care discussed. Medication Change: Yes (detox changes daily) Medical Record Reviewed: Yes Mental Status Examination - Cognitive Function Orientation: Person, Place, Situation Memory: Intact Attention: WNL Concentration: WNL Association: WNL Fund of Knowledge: WNL - Mood Mood: Anxious - Affect Affect: Constricted - Speech Speech: Appropriate - Formal Thought Process Formal Thought Process: No Impairment - Suicidal Ideation Suicidal Ideation: No - Homicidal Ideation Homicidal Ideation: No Goal/Treatment Plan - Goal/Treatment Plan Need for Continued Stay: Discharge may exacerbated symptoms, Severe functional impairment Progress Toward Problem(s) and Goals/Treatment Plan: Continue taper Gabapentin for augmentation if needed As needed medications All risks, benefits and alternatives of the meds discussed, and the pt agreed and understood. Attend groups and activities Supportive therapy and psychoeducation [place] for abstinence CBT for relapse prevention Encourage MAT Refer to rehab or IOP, and self-help groups Smoking cessation with [place] Nicotine patch if needed Estimated Date of D/C: 05/21/18
[2018-05-19] MEDS: Aluminum Hydroxide/Magnesium Hydroxide Susp (30 mL) PO PRN (17:20)
[2018-05-20] MEDS: Multiple Vitamins Tab PO SCH (09:34)
[2018-05-21 06:17] VITALS: O2SAT 99
[2018-05-21 08:31] VITALS: BP 98/62; PULSE 73; RESP 20; TEMP 98.2
--- NOTE | 2018-05-21 08:48 | PCM.PYCHDC ---
Mental Status Examination - Mental Status Examination Orientation: Person Discharge Summary - Discharge Note Consultations:: List each consultation separately and include: 1. Reason for request. 2. Findings. 3. Follow-up Summary of Hospital Course include:: 1. Description of specific treatment plan utilized for patients during their course of treatmen. 2. Summarize the time- course for resolution of acute symptoms and/or regressed behaviors. 3. Describe issues identified and worked on during hospitalization. 4. Describe medication utilized. 5. Describe medical problems identified and treated. 6. Reassessment of suicide risk Summary of Hospital Course: He went to [facility] in . - Diagnosis (1) Alcohol abuse Current Visit: Yes Status: Acute - Final Diagnosis (DSM 5) Condition upon Discharge: STABLE Disposition: HOME/ ROUTINE Follow-up Treatment Plan: Continue medications. Support and psychoeducation daily Attend groups and activities daily After care planning by TAO 15 min Prescriptions/Medication Reconciliation: Aspirin [Aspirin Chewable] 81 mg PO DAILY #30 chew traZODone [Desyrel] 50 mg PO HS PRN #30 tab PRN Reason: Insomnia
[2018-05-21] MEDS: Multiple Vitamins Tab PO SCH (09:43)
--- NOTE | 2018-05-21 15:54 | PCM.PYCHPN ---
Psychiatric Progress Note - Psychiatric Progress Note Patient seen today, length of contact: 16 min Patient Chief Complaint: "I am not doing well" Problems Identified/Issues Discussed: The pt is seen, chart reviewed, case discussed with staff. The pt is compliant with medications and reports no side-effects. Symptoms are improving but needs more time to stabilize. Pt attends groups and activities. Support given, psycho-education provided. After care discussed.Will go to [facility] Medication Change: Yes (detox changes daily) Medical Record Reviewed: Yes Mental Status Examination - Cognitive Function Orientation: Person, Place, Situation Memory: Intact Attention: WNL Concentration: WNL Association: WNL Fund of Knowledge: WNL - Mood Mood: Anxious - Affect Affect: Constricted - Speech Speech: Appropriate - Formal Thought Process Formal Thought Process: No Impairment - Suicidal Ideation Suicidal Ideation: No - Homicidal Ideation Homicidal Ideation: No Goal/Treatment Plan - Goal/Treatment Plan Need for Continued Stay: Discharge may exacerbated symptoms, Severe functional impairment Progress Toward Problem(s) and Goals/Treatment Plan: Continue taper Gabapentin for augmentation if needed As needed medications All risks, benefits and alternatives of the meds discussed, and the pt agreed and understood. Attend groups and activities Supportive therapy and psychoeducation [place] for abstinence CBT for relapse prevention Encourage MAT Refer to rehab or IOP, and self-help groups Smoking cessation with [place] Nicotine patch if needed Estimated Date of D/C: 05/21/18
== END 2018-05-21 10:22 | disposition home or self-care (01) | DRG 750 ==
LOC: C.ER 12:41 → C.9E 17:29 → C.7D 18:43
PROVIDERS: ADMIT Psychiatry & Neurology Psychiatry; ATTEND Psychiatry & Neurology Psychiatry
PROC: HZ2ZZZZ Detoxification Services for Substance Abuse Treatment (ICD-10-PCS; principal; 2018-05-15)
PROC: HZ52ZZZ Individual Psychotherapy for Substance Abuse Treatment, Cognitive-Behavioral (ICD-10-PCS; 2018-05-15)
PROC: HZ59ZZZ Individual Psychotherapy for Substance Abuse Treatment, Supportive (ICD-10-PCS; 2018-05-15)
PROC: HZ56ZZZ Individual Psychotherapy for Substance Abuse Treatment, Psychoeducation (ICD-10-PCS; 2018-05-15)
PROC: HZ42ZZZ Group Counseling for Substance Abuse Treatment, Cognitive-Behavioral (ICD-10-PCS; 2018-05-15)
PROC: HZ46ZZZ Group Counseling for Substance Abuse Treatment, Psychoeducation (ICD-10-PCS; 2018-05-15)
DX: F10.220 Alcohol dependence with intoxication, uncomplicated (principal); I50.9 Heart failure, unspecified; I11.0 Hypertensive heart disease with heart failure; F10.230 Alcohol dependence with withdrawal, uncomplicated; Y90.8 Blood alcohol level of 240 mg/100 ml or more; Z59.0 Homelessness; F32.9 Major depressive disorder, single episode, unspecified; F41.9 Anxiety disorder, unspecified

== ENCOUNTER 2018-05-31 14:24 | Inpatient (IN) | payer MEDICAID ==
[2018-05-31 14:24] VITALS: BMI 24.8
--- NOTE | 2018-05-31 14:43 | C.PDOC ---
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 States he was drinking at a bar with some friends and was crossing the street, when he suddenly passed out. No prodrome. Upon awakening, patient now feels epigastric pain and chest pain. Has hx of prior admission for the same in March and states they couldnt figure it out. Patient reports he has had similar syncopal episodes intermittently for past 2-3 years. Current episode is similar to prior. Current chest pain and abdominal pain are also similar to prior, which he reports having 2-3 episodes of per week. Also reports PMHx of pancreatitis and alcohol abuse. Time Seen by Provider: 05/31/18 14:32 Chief Complaint (Nursing): Syncope History Per: Patient History/Exam Limitations: no limitations Onset/Duration Of Symptoms: Mins Current Symptoms Are (Timing): Gone Activity At Onset Of Symptoms: Walking Associated Symptoms Preceding Syncopal Episode: No Predromal Symptoms (Sudden Onset) Seizure Or Post-ictal Symptoms: None Past Medical History Reviewed: Historical Data, Nursing Documentation, Vital Signs Vital Signs: Last Vital Signs Temp 98.4 F 05/31/18 14:38 Pulse 69 05/31/18 16:15 Resp 18 05/31/18 16:15 BP 107/67 05/31/18 16:15 Pulse Ox 95 05/31/18 16:32 - Medical History PMH: Anemia, Anxiety, Arthritis, CHF, Depression, Gastritis, Gastrointestinal Ulcer (PEPTIC), HTN, Pancreatitis, Peripheral Edema Denies: HIV, Kidney Stones, Chronic Kidney Disease, Seizures, Sexually Transmitted Disease Other PMH: Alcohol abuse Surgical History: - [facility] Procedures ALCOHOL DETOXIFICATION (05/03/13) DETOXIFICATION SERVICES FOR SUBSTANCE ABUSE TREATMENT (05/15/18) EXCISION OF DESCENDING COLON, ENDO, DIAGN (03/16/18) EXCISION OF STOMACH, ENDO, DIAGN (03/16/18) EXTIRPATION OF MATTER FROM LARGE INTESTINE, ENDO (01/09/17) FLUOROSCOPY OF LEFT HEART USING LOW OSMOLAR CONTRAST (07/13/17) FLUOROSCOPY OF MULT COR ART USING L OSM CONTRAST (07/13/17) GROUP HOME PERFORMANCE LABORER FOR SUBSTANCE ABUSE TREATMENT, PSYCHOEDUCATION (05/15/18) GROUP HOME PERFORMANCE LABORER FOR SUBSTANCE ABUSE, COGNITIVE BEHAVIORAL (05/15/18) GROUP PSYCHOTHERAPY (01/24/16) INDIV PSYCHOTHERAPY FOR SUBSTANCE ABUSE TREATMENT, SUPPORT (05/15/18) INDIV PSYCHOTHERAPY FOR SUBSTANCE ABUSE, COGNITIV BEHAVIORAL (05/15/18) INDIV PSYCHOTHERAPY FOR SUBSTANCE ABUSE, PSYCHOEDUCATION (05/15/18) INSERT OF MONITOR DEV INTO CHEST SUBCU/FASCIA, OPEN APPROACH (12/18/16) INSPECTION OF UPPER INTESTINAL TRACT, ENDO (03/16/18) MEASURE OF ARTERIAL PRESSURE, PERIPHERAL, INFORMATICS NURSE APPROACH (12/18/16) MEASURE OF CARDIAC SAMPL & PRESSURE, L HEART, PERC APPROACH (07/13/17) MEASUREMENT OF CARDIAC RHYTHM, EXTERNAL APPROACH (12/18/16) TRANSFUSE NONAUT RED BLOOD CELLS IN PERIPH ART, PERC (01/09/17) TRANSFUSE NONAUT RED BLOOD CELLS IN PERIPH VEIN, PERC (03/16/18) Family History: States: Unknown Family Hx - Social History Hx Tobacco Use: No (quit 2 months now) Hx Alcohol Use: Yes Hx Substance Use: Yes - Immunization History Hx Tetanus Toxoid Vaccination: Yes Hx Influenza Vaccination: Yes Hx Pneumococcal Vaccination: No Review Of Systems Constitutional: Negative for: Fever, Chills Eyes: Negative for: Vision Change Cardiovascular: Positive for: Chest Pain Respiratory: Negative for: Shortness of Breath Gastrointestinal: Positive for: Abdominal Pain. Negative for: Nausea, Vomiting Neurological: Positive for: Other (Syncope). Negative for: Weakness, Numbness, Incoordination, Change in Speech, Confusion, Seizures, Dizziness Physical Exam - Physical Exam Appears: Non-toxic, No Acute Distress Skin: Normal Color, Warm, Dry Head: Atraumatic, Normacephalic Eye(s): bilateral: Normal Inspection, PERRL, EOMI Nose: Normal Oral Mucosa: Moist Neck: Normal ROM, Supple Chest: Symmetrical, No Tenderness Cardiovascular: Rhythm Regular, No Murmur Respiratory: Normal Breath Sounds, No Rales, No Rhonchi, No Wheezing, Other ( NARD) Gastrointestinal/Abdominal: Soft, Tenderness (mild tenderness to epigastrium), No Distention, No Guarding, No Rebound Back: Normal Inspection, No CVA Tenderness Extremity: Bilateral: Atraumatic, Normal Color And Temperature, Normal ROM Pulses: Left Radial: Normal, Right Radial: Normal Neurological/Psych: Normal Speech, Normal Cranial Nerves, Other (Calm, cooperative, no acute intoxication) ED Course And Treatment - Laboratory Results Result Diagrams: 05/31/18 15:00 05/31/18 15:00 Interpretation Of Abnormal: CHORNIC ANEMIA UNCH PRIOR ECG: Interpreted By Me, Viewed By Me ECG Rhythm: Sinus Rhythm, 1st Degree HB Interpretation Of ECG: acute QTc of 486 Rate From EC O2 Sat by Pulse Oximetry: 95 (RA) Pulse Ox Interpretation: Normal - Radiology CXR: Interpreted by Me, Viewed By Me CXR Interpretation: Yes: No Acute Disease (no changes from prior) - CT Scan/US Head CT Other Rad Studies (CT/US): Read By Radiologist, Radiology Report Reviewed CT/US Interpretation: Accession No. : [id number]. Patient Name / ID : ESTHELA CRESPO / [id number]. Exam Date : 05/31/2018 16:25:56 ( Approved ). Study Comment : Sex / Age : M / 62Y. Creator : Glenn Roth MD. Dictator : Call Person : Gambling Cashier : Glenn Roth MD. Approver2 : Report Date : 05/31/2018 17:07:19. My Comment : . Date of service: 2017. PROCEDURE: CT HEAD WITHOUT CONTRAST. HISTORY: syncope. COMPARISON: Comparison made with prior study 09/22/2017. TECHNIQUE: Axial computed tomography images were obtained through the head/brain without intravenous contrast. Radiation dose: Total exam DLP = 898.38 mGy-cm. This CT exam was performed using one or more of the following dose reduction techniques: Automated exposure control, adjustment of the mA and/or kV according to patient size, and/or use of iterative reconstruction technique. FINDINGS: HEMORRHAGE: No acute parenchymal, subarachnoid or extra-axial hemorrhage. BRAIN: Suspect minimal chronic periventricular white matter ischemic changes. Probable dilated perivascular spaces left inferolateral basal ganglia. Moderate central volume loss evidenced by disproportionate enlargement of the ventricles compared sulci. VENTRICLES: No obstructive hydrocephalus. CALVARIUM: Calvarium intact. The inner Unremarkable. PARANASAL SINUSES: Unremarkable as visualized. No significant inflammatory changes. MASTOID AIR CELLS: Unremarkable as visualized. No inflammatory changes. OTHER FINDINGS: None. IMPRESSION: Suspect minimal chronic periventricular white matter ischemic changes. Probable dilated perivascular spaces left inferolateral basal ganglia. Moderate central volume loss evidenced by disproportionate enlargement of the ventricles compared sulci. Note that the superior most aspect of the skull vertex has been excluded from the exam and cannot be evaluated Progress - Re-Evaluation Re-evaluation Note: 05/31/18 15:43 D/W DR Bebeto SILVEIRA AWARE OF ER FINDINGS WILL ADMIT. CONSULT LAWANDA 05/31/18 15:43 CT HEAD PENDING - Data Reviewed Data Reviewed: Lab, Diagnostic imaging, EKG, Old records Medical Decision Making Medical Decision Making: Records reviewed from prior visits: Patient had nuclear stress test on 02/21/18, which was normal. Records demonstrate cardiac catheterization in 06/2017, showing dilated cardiomyopathy with EF of 20-25%. Normal coronaries. Patient has also had multiple prior Chest CTs. Also had endoscopy in February 2018 showing no ulcers. Initial Impression: Chest Pain, Syncope Initial Plan: --EKG --CMP --CBC --UDS --Lipase --Troponin I --PPT/PT --UA --Chest X-Ray --Aspirin 325 mg PO --NTG 0.4 mg SL Disposition Counseled Patient/Family Regarding: Studies Performed, Diagnosis - Disposition Disposition: HOSPITALIZED Disposition Time: 16:32 Condition: STABLE - POA Present On Arrival: Falls Or Trauma - Clinical Impression Clinical Impression: Syncope, Alcohol abuse, Chest pain - Scribe Statement The provider has reviewed the documentation as recorded by the Ava Trammell Provider Attestation: All medical record entries made by the Ava were at my direction and personally dictated by me. I have reviewed the chart and agree that the record accurately reflects my personal performance of the history, physical exam, medical decision making, and the department course for this patient. I have also personally directed, reviewed, and agree with the discharge instructions and disposition. Decision To Admit - Pt Status Changed To: Hospital Disposition Of: Observation - . Bed Request Type: Telemetry Admitting Physician: Pablo Silveira Patient Diagnosis: Syncope, Alcohol abuse, Chest pain
[2018-05-31] MEDS ORDERED: Aspirin 325 mg EC Tablets PO STA (14:45)
[2018-05-31 15:12] LABS: BASO # 0.1 K/uL (0.0-0.2); BASO % 1.8 % (0.0-2.0); EOS # 0.1 K/uL (0.0-0.7); EOS % 3.1 % (0.0-4.0); HEMOGLOBIN 8.7 g/dL (12.0-18.0); LYMPH % 33.7 % (20.0-40.0); MEAN CELL VOLUME 94.4 fL (80.0-94.0); MEAN CORPUSCULAR HEMOGLOBIN 31.9 pg (27.0-31.0); MEAN CORPUSCULAR HGB CONC 33.8 g/dL (33.0-37.0); MEAN PLATELET VOLUME 8.8 fL (7.2-11.7); MONO # 0.4 K/uL (0.0-0.8); MONO % 12.7 % (0.0-10.0); NEUT # 1.5 K/uL (1.8-7.0); NEUT % 48.7 % (50.0-75.0); NRBC % 0.1 % (0.0-2.0); RBC 2.73 Mil/uL (4.40-5.90); RED CELL DISTRIBUTION WIDTH 15.1 % (11.5-14.5); WHITE BLOOD COUNT 3.1 K/uL (4.8-10.8)
[2018-05-31 15:21] LABS: ALB/GLOB RATIO 1.5 (1.0-2.1); ALBUMIN 4.3 g/dL (3.5-5.0); ALT/SGPT 31 U/L (21-72); AST/SGOT 75 U/L (17-59); BLOOD UREA NITROGEN 14 mg/dL (9-20); CALCIUM 8.6 mg/dl (8.6-10.4); GFR NON-AFRICAN AMERICAN 56; LIPASE 230 U/L (23-300)
[2018-05-31 15:25] LABS: INR 1.1; PROTHROMBIN TIME 11.9 SECONDS (9.7-12.2)
--- NOTE | 2018-05-31 16:30 | RAD ---
Date of service: 05/31/2018 PROCEDURE: CHEST RADIOGRAPH, 1 VIEW HISTORY: chest pain COMPARISON: Comparison chest 04/10/2018 theNone available. FINDINGS: LUNGS: Clear. PLEURA: No pneumothorax or pleural fluid seen. CARDIOVASCULAR: Normal. OSSEOUS STRUCTURES: No significant abnormalities. VISUALIZED UPPER ABDOMEN: Normal. OTHER FINDINGS: None. IMPRESSION: No active disease.
[2018-05-31 16:34] LABS: SQUAMOUS EPITHIAL 1 /hpf (0-5); URINE BACTERIA OCC (<OCC); URINE BILIRUBIN NEGATIVE (NEGATIVE); URINE BLOOD NEGATIVE (NEGATIVE); URINE CLARITY Clear (Clear); URINE COLOR Yellow (YELLOW); URINE GLUCOSE (UA) NORMAL (Normal); URINE LEUKOCYTE ESTERASE 1+ Leu/uL (Negative); URINE PROTEIN NEGATIVE (NEGATIVE); URINE UROBILINOGEN NORMAL mg/dL (0.2-1.0)
[2018-05-31 16:52] LABS: BARBITURATES, UR NEGATIVE (NEGATIVE); BENZODIAZEPINES, UR NEGATIVE (NEGATIVE); OPIATES, UR NEGATIVE (NEGATIVE); PHENCYCLIDINE, UR NEGATIVE (NEGATIVE)
--- NOTE | 2018-05-31 17:09 | CT ---
Date of service: 05/31/2018 PROCEDURE: CT HEAD WITHOUT CONTRAST. HISTORY: syncope COMPARISON: Comparison made with prior study 09/22/2017 TECHNIQUE: Axial computed tomography images were obtained through the head/brain without intravenous contrast. Radiation dose: Total exam DLP = 898.38 mGy-cm. This CT exam was performed using one or more of the following dose reduction techniques: Automated exposure control, adjustment of the mA and/or kV according to patient size, and/or use of iterative reconstruction technique. FINDINGS: HEMORRHAGE: No acute parenchymal, subarachnoid or extra-axial hemorrhage. BRAIN: Suspect minimal chronic periventricular white matter ischemic changes. Probable dilated perivascular spaces left inferolateral basal ganglia Moderate central volume loss evidenced by disproportionate enlargement of the ventricles compared sulci. VENTRICLES: No obstructive hydrocephalus. CALVARIUM: Calvarium intact. The inner Unremarkable. PARANASAL SINUSES: Unremarkable as visualized. No significant inflammatory changes. MASTOID AIR CELLS: Unremarkable as visualized. No inflammatory changes. OTHER FINDINGS: None. IMPRESSION: Suspect minimal chronic periventricular white matter ischemic changes. Probable dilated perivascular spaces left inferolateral basal ganglia Moderate central volume loss evidenced by disproportionate enlargement of the ventricles compared sulci. Note that the superior most aspect of the skull vertex has been excluded from the exam and cannot be evaluated
[2018-05-31] MEDS ORDERED: Nitroglycerin 2% Ointment Foilpak UD TOP ONE (18:57)
[2018-05-31] MEDS ORDERED: Nitroglycerin 2% Ointment Foilpak UD TOP STA (18:57)
--- NOTE | 2018-05-31 19:14 | CP.PCM.HP ---
History of Present Illness - History of Present Illness History of Present Illness: 62-year-old male with PMH of anxiety, anemia, arthritis, CHF, depression, gastritis, peptic ulcer, HTN, presents to ED with recurrent chest pain and syncope. Admits of drinking at a bar with some friends and was crossing the street, when he suddenly passed out. No aura or confusion. Admits of feeling epigastric pain and chest pain after awakening. History of similar complaints in March and states they could not figure it out. History of similar syncopal episodes intermittently for past 2-3 years. Current episode and current chest pain abdominal pain as similar to the prior episodes. PMH of alcohol abuse. Denies nausea /vomiting. Past Patient History - Infectious Disease Hx of Infectious Diseases: None - Past Medical History & Family History Past Medical History?: Yes - Past Social History Smoking Status: Former Smoker - CARDIAC Hx Congestive Heart Failure: Yes Hx Hypertension: Yes Hx Peripheral Edema: Yes - PULMONARY Hx Respiratory Disorders: No Hx Tuberculosis: No - NEUROLOGICAL Hx Seizures: No - HEENT Hx HEENT Problems: Yes Hx Cataracts: Yes ([place].Cataract Extraction 2013) - RENAL Hx Chronic Kidney Disease: No Hx Kidney Stones: No - ENDOCRINE/METABOLIC Hx Endocrine Disorders: No Hx Diabetes Mellitus Type 2: Yes - HEMATOLOGICAL/ONCOLOGICAL Hx Anemia: Yes Hx Human Immunodeficiency Virus (HIV): No - INTEGUMENTARY Hx Dermatological Problems: No - MUSCULOSKELETAL/RHEUMATOLOGICAL Hx Arthritis: Yes - GASTROINTESTINAL Hx Gastritis: Yes Hx Pancreatitis: Yes - GENITOURINARY/GYNECOLOGICAL Hx Sexually Transmitted Disorders: No - PSYCHIATRIC Hx Anxiety: Yes Hx Depression: Yes Hx Substance Use: Yes - SURGICAL HISTORY Hx Surgeries: Yes Other/Comment: "head injury" hx. "implanted loop recorder". pacemaker - ANESTHESIA Hx Anesthesia: Yes Hx Anesthesia Reactions: No Hx Malignant Hyperthermia: No Meds Allergies/Adverse Reactions: Allergies Allergy/AdvReac Type Severity Reaction Status Date / Time Iodinated Contrast- Oral and Allergy Severe SWELLING Verified 05/31/18 14:42 IV Dye shellfish derived Allergy Intermediate RASH Verified 05/31/18 14:42 milk AdvReac Intermediate DIARRHEA Verified 05/31/18 14:42 Physical Exam - Constitutional Appears: Well - Head Exam Head Exam: ATRAUMATIC, NORMAL INSPECTION, NORMOCEPHALIC - Eye Exam Eye Exam: EOMI, Normal appearance, PERRL Pupil Exam: NORMAL ACCOMODATION, PERRL - ENT Exam ENT Exam: Mucous Membranes Moist, Normal Exam - Neck Exam Neck exam: Positive for: Normal Inspection - Respiratory Exam Respiratory Exam: Decreased Breath Sounds - Cardiovascular Exam Cardiovascular Exam: REGULAR RHYTHM, +S1, +S2 - GI/Abdominal Exam GI & Abdominal Exam: Diminished Bowel Sounds, Soft - Rectal Exam Rectal Exam: Deferred Results - Vital Signs Recent Vital Signs: Last Vital Signs Temp 98.4 F 05/31/18 14:38 Pulse 67 05/31/18 18:37 Resp 16 05/31/18 18:37 BP 115/67 05/31/18 18:37 Pulse Ox 98 05/31/18 18:37 - Labs Result Diagrams: 06/03/18 06:27 06/03/18 06:27 Labs: Laboratory Results - last 24 hr 05/31/18 05/31/18 05/31/18 15:00 15:00 15:00 WBC 3.1 L RBC 2.73 L Hgb 8.7 L Hct 25.8 L MCV 94.4 H MCH 31.9 H MCHC 33.8 RDW 15.1 H Plt Count 160 MPV 8.8 Neut % (Auto) 48.7 L Lymph % (Auto) 33.7 [place] % (Auto) 12.7 H Eos % (Auto) 3.1 Baso % (Auto) 1.8 Neut # (Auto) 1.5 L Lymph # (Auto) 1.0 [place] # (Auto) 0.4 Eos # (Auto) 0.1 Baso # (Auto) 0.1 PT 11.9 INR 1.1 APTT 27 Sodium 142 Potassium 4.0 Chloride 102 Carbon Dioxide 24 Anion Gap 20 BUN 14 Creatinine 1.3 Est GFR ( Amer) > 60 Est GFR (Non-Af Amer) 56 Random Glucose 91 Calcium 8.6 Total Bilirubin 0.5 AST 75 H D ALT 31 Alkaline Phosphatase 67 Troponin I < 0.0120 Total Protein 7.2 Albumin 4.3 Globulin 2.9 Albumin/Globulin Ratio 1.5 Lipase 230 Urine Color Urine Clarity Urine pH Ur Specific [place] Urine Protein Urine Glucose (UA) Urine Ketones Urine Blood Urine Nitrate Urine Bilirubin Urine Urobilinogen Ur Leukocyte Esterase Urine WBC (Auto) Urine RBC (Auto) Ur Squamous Epith Cells Urine Bacteria Urine Opiates Screen Urine Methadone Screen Ur Barbiturates Screen Ur Phencyclidine Scrn Ur Amphetamines Screen U Benzodiazepines Scrn U Oth Cocaine Metabols U Cannabinoids Screen 05/31/18 05/31/18 16:12 16:12 WBC RBC Hgb Hct MCV MCH MCHC RDW Plt Count MPV Neut % (Auto) Lymph % (Auto) [place] % (Auto) Eos % (Auto) Baso % (Auto) Neut # (Auto) Lymph # (Auto) [place] # (Auto) Eos # (Auto) Baso # (Auto) PT INR APTT Sodium Potassium Chloride Carbon Dioxide Anion Gap BUN Creatinine Est GFR ( Amer) Est GFR (Non-Af Amer) Random Glucose Calcium Total Bilirubin AST ALT Alkaline Phosphatase Troponin I Total Protein Albumin Globulin Albumin/Globulin Ratio Lipase Urine Color Yellow Urine Clarity Clear Urine pH 5.0 Ur Specific [place] 1.008 Urine Protein Negative Urine Glucose (UA) Normal Urine Ketones Negative Urine Blood Negative Urine Nitrate Negative Urine Bilirubin Negative Urine Urobilinogen Normal Ur Leukocyte Esterase 1+ H Urine WBC (Auto) 9 H Urine RBC (Auto) < 1 Ur Squamous Epith Cells 1 Urine Bacteria Occ H Urine Opiates Screen Negative Urine Methadone Screen Negative Ur Barbiturates Screen Negative Ur Phencyclidine Scrn Negative Ur Amphetamines Screen Negative U Benzodiazepines Scrn Negative U Oth Cocaine Metabols Negative U Cannabinoids Screen Negative
[2018-05-31] MEDS: Folic Acid 1 MG, Thiamine 100 MG, Multivitamin (MVI) 10 ML in Dextrose 5% In Water 1,00... IV SCH (22:12)
[2018-05-31 23:24] LABS: CK-MB 1.56 ng/mL (0.0-3.38)
[2018-06-01 06:41] LABS: CK-MB 1.58 ng/mL (0.0-3.38); TROPONIN I 0.013 ng/mL (0.00-0.120)
[2018-06-01 06:59] LABS: HEMOGLOBIN 8.9 g/dL (12.0-18.0); MEAN CELL VOLUME 92.7 fL (80.0-94.0); MEAN CORPUSCULAR HEMOGLOBIN 31.4 pg (27.0-31.0); MEAN CORPUSCULAR HGB CONC 33.9 g/dL (33.0-37.0); MEAN PLATELET VOLUME 8.5 fL (7.2-11.7); RBC 2.83 Mil/uL (4.40-5.90); WHITE BLOOD COUNT 2.5 K/uL (4.8-10.8)
--- NOTE | 2018-06-01 07:00 | CP.PCM.CON ---
History of Present Illness - History of Present Illness History of Present Illness: ETOH RELATED BLOCK OUT- RECURRENT ??? SEIZURES HGB 8.3 ON ASPRIN WITH Hx PEPTIC ULCER NEUROPATHY EEG HYDRATION B1 LIBRIUM ABSTINENCE ETOH- SOCIAL SERVICE EVAL NO AEDs IS NEEDED CARDIO TO FOR CHESTPAIN AND SYNCOPE Past Patient History - Infectious Disease Hx of Infectious Diseases: None - Past Medical History & Family History Past Medical History?: Yes - Past Social History Smoking Status: Former Smoker - CARDIAC Hx Cardiac Disorders: Yes Hx Congestive Heart Failure: Yes Hx Hypertension: Yes Hx Peripheral Edema: Yes - PULMONARY Hx Respiratory Disorders: No Hx Tuberculosis: No - NEUROLOGICAL Hx Neurological Disorder: Yes Hx Syncope: Yes - HEENT Hx HEENT Problems: Yes Hx Cataracts: Yes ([place].Cataract Extraction 2013) - RENAL Hx Chronic Kidney Disease: No Hx Kidney Stones: No - ENDOCRINE/METABOLIC Hx Endocrine Disorders: No - HEMATOLOGICAL/ONCOLOGICAL Hx Blood Disorders: Yes Hx Anemia: Yes Hx Human Immunodeficiency Virus (HIV): No - INTEGUMENTARY Hx Dermatological Problems: No - MUSCULOSKELETAL/RHEUMATOLOGICAL Hx Musculoskeletal Disorders: Yes Hx Arthritis: Yes Hx Falls: Yes - GASTROINTESTINAL Hx Gastrointestinal Disorders: Yes Hx Gastritis: Yes Hx Pancreatitis: Yes - GENITOURINARY/GYNECOLOGICAL Hx Genitourinary Disorders: No Hx Sexually Transmitted Disorders: No - PSYCHIATRIC Hx Psychophysiologic Disorder: Yes Hx Anxiety: Yes Hx Depression: Yes Hx Substance Use: No - SURGICAL HISTORY Hx Surgeries: Yes Other/Comment: endoscopy - ANESTHESIA Hx Anesthesia: Yes Hx Anesthesia Reactions: No Hx Malignant Hyperthermia: No Has any member of the family had a problem w/ anesthesia?: No Meds Allergies/Adverse Reactions: Allergies Allergy/AdvReac Type Severity Reaction Status Date / Time Iodinated Contrast- Oral and Allergy Severe SWELLING Verified 05/31/18 14:42 IV Dye shellfish derived Allergy Intermediate RASH Verified 05/31/18 14:42 milk AdvReac Intermediate DIARRHEA Verified 05/31/18 14:42 - Medications Medications: Current Medications Aspirin (Aspirin) 325 mg PO DAILY [facility] Chlordiazepoxide (Librium) 25 mg PO Q8 [facility] Last Admin: 06/01/18 05:17 Dose: 25 mg Folic Acid (Folic Acid) 1 mg PO DAILY [facility] Folic Acid 1 mg/ Thiamine HCl 100 mg/ Multivitamins/Vitamin C 10 ml/ Dextrose 1 ,011.2 mls @ 50 mls/hr IV .[id number] [facility] Last Admin: 05/31/18 22:12 Dose: 50 mls/hr Ketorolac Tromethamine (Toradol) 10 mg PO Q8H PRN PRN Reason: Pain, moderate (4-7) Losartan Potassium (Cozaar) 25 mg PO DAILY [facility] Magnesium Oxide (Mag-Ox) 400 mg PO DAILY [facility] Multivitamins (Hexavitamin) 1 tab PO DAILY [facility] Pantoprazole Sodium (Protonix Ec Tab) 40 mg PO DAILY [facility] Thiamine HCl (Vitamin B1 Tab) 100 mg PO DAILY [facility] Trazodone HCl (Desyrel) 50 mg PO HS PRN PRN Reason: Insomnia Results - Vital Signs Recent Vital Signs: Last Vital Signs Temp 98 F 06/01/18 06:00 Pulse 73 06/01/18 04:00 Resp 13 06/01/18 04:00 BP 117/73 06/01/18 03:56 Pulse Ox 96 06/01/18 04:00 - Labs Result Diagrams: 05/31/18 15:00 05/31/18 15:00 Labs: Laboratory Results - last 24 hr 05/31/18 05/31/18 05/31/18 15:00 15:00 15:00 WBC 3.1 L RBC 2.73 L Hgb 8.7 L Hct 25.8 L MCV 94.4 H MCH 31.9 H MCHC 33.8 RDW 15.1 H Plt Count 160 MPV 8.8 Neut % (Auto) 48.7 L Lymph % (Auto) 33.7 [place] % (Auto) 12.7 H Eos % (Auto) 3.1 Baso % (Auto) 1.8 Neut # (Auto) 1.5 L Lymph # (Auto) 1.0 [place] # (Auto) 0.4 Eos # (Auto) 0.1 Baso # (Auto) 0.1 PT 11.9 INR 1.1 APTT 27 Sodium 142 Potassium 4.0 Chloride 102 Carbon Dioxide 24 Anion Gap 20 BUN 14 Creatinine 1.3 Est GFR ( Amer) > 60 Est GFR (Non-Af Amer) 56 Random Glucose 91 Calcium 8.6 Total Bilirubin 0.5 AST 75 H D ALT 31 Alkaline Phosphatase 67 Total Creatine Kinase CK-MB (Mass) Troponin I < 0.0120 Total Protein 7.2 Albumin 4.3 Globulin 2.9 Albumin/Globulin Ratio 1.5 Lipase 230 Urine Color Urine Clarity Urine pH Ur Specific [place] Urine Protein Urine Glucose (UA) Urine Ketones Urine Blood Urine Nitrate Urine Bilirubin Urine Urobilinogen Ur Leukocyte Esterase Urine WBC (Auto) Urine RBC (Auto) Ur Squamous Epith Cells Urine Bacteria Urine Opiates Screen Urine Methadone Screen Ur Barbiturates Screen Ur Phencyclidine Scrn Ur Amphetamines Screen U Benzodiazepines Scrn U Oth Cocaine Metabols U Cannabinoids Screen Alcohol, Quantitative 05/31/18 05/31/18 05/31/18 16:12 16:12 19:39 WBC RBC Hgb Hct MCV MCH MCHC RDW Plt Count MPV Neut % (Auto) Lymph % (Auto) [place] % (Auto) Eos % (Auto) Baso % (Auto) Neut # (Auto) Lymph # (Auto) [place] # (Auto) Eos # (Auto) Baso # (Auto) PT INR APTT Sodium Potassium Chloride Carbon Dioxide Anion Gap BUN Creatinine Est GFR ( Amer) Est GFR (Non-Af Amer) Random Glucose Calcium Total Bilirubin AST ALT Alkaline Phosphatase Total Creatine Kinase CK-MB (Mass) Troponin I Total Protein Albumin Globulin Albumin/Globulin Ratio Lipase Urine Color Yellow Urine Clarity Clear Urine pH 5.0 Ur Specific [place] 1.008 Urine Protein Negative Urine Glucose (UA) Normal Urine Ketones Negative Urine Blood Negative Urine Nitrate Negative Urine Bilirubin Negative Urine Urobilinogen Normal Ur Leukocyte Esterase 1+ H Urine WBC (Auto) 9 H Urine RBC (Auto) < 1 Ur Squamous Epith Cells 1 Urine Bacteria Occ H Urine Opiates Screen Negative Urine Methadone Screen Negative Ur Barbiturates Screen Negative Ur Phencyclidine Scrn Negative Ur Amphetamines Screen Negative U Benzodiazepines Scrn Negative U Oth Cocaine Metabols Negative U Cannabinoids Screen Negative Alcohol, Quantitative 262 H 05/31/18 06/01/18 22:56 05:59 WBC RBC Hgb Hct MCV MCH MCHC RDW Plt Count MPV Neut % (Auto) Lymph % (Auto) [place] % (Auto) Eos % (Auto) Baso % (Auto) Neut # (Auto) Lymph # (Auto) [place] # (Auto) Eos # (Auto) Baso # (Auto) PT INR APTT Sodium Potassium Chloride Carbon Dioxide Anion Gap BUN Creatinine Est GFR ( Amer) Est GFR (Non-Af Amer) Random Glucose Calcium Total Bilirubin AST ALT Alkaline Phosphatase Total Creatine Kinase 1049 H 918 H CK-MB (Mass) 1.56 1.58 Troponin I < 0.0120 0.0130 Total Protein Albumin Globulin Albumin/Globulin Ratio Lipase Urine Color Urine Clarity Urine pH Ur Specific [place] Urine Protein Urine Glucose (UA) Urine Ketones Urine Blood Urine Nitrate Urine Bilirubin Urine Urobilinogen Ur Leukocyte Esterase Urine WBC (Auto) Urine RBC (Auto) Ur Squamous Epith Cells Urine Bacteria Urine Opiates Screen Urine Methadone Screen Ur Barbiturates Screen Ur Phencyclidine Scrn Ur Amphetamines Screen U Benzodiazepines Scrn U Oth Cocaine Metabols U Cannabinoids Screen Alcohol, Quantitative
[2018-06-01] MEDS: Magnesium Oxide 400 mg Tab UD PO SCH (09:43)
[2018-06-01] MEDS: Multiple Vitamins Tab PO SCH (09:44)
[2018-06-01] MEDS: Pantoprazole 40 mg EC Tab PO SCH (09:44)
--- NOTE | 2018-06-01 09:53 | CP.PCM.CON ---
<Christina Rashid - Last Filed: 06/01/18 17:08> History of Present Illness - History of Present Illness History of Present Illness: Cardiology Consult Note- Dr. Dillard's service Reason for consult- Syncope 62 year old male with past medical history significant for dilated cardiomyopathy, HTN, HCV, anemia and long-term alcohol abuse presented after syncopal event yesterday. Patient states that he was out celebrating a friend's birthday. Just prior to the syncopal event, patient had a few shots of liquor at the bar shortly before 2 pm. Shortly after walking out of the bar, patient states that he fell to the ground. He cannot remember the event specifically, rather his friends alerted him of the event. Patient states that he has had prior syncopal and near-syncopal events in the past for which he has followed with a ic design engineer. Patient states that he had a loop recorder placed sometime in 2017. He states that this was interrogated approximately 2 months ago - states that there were no abnormalities detected. Patient currently denies chest pain, palpitations, headaches at this time. PMHx- as stated above PSH- Loop recorder placed 2017 Medications- ASA 81 mg , Thiamine 100 mg, PPI 40 mg PO , Multivitamins, Magnesium 400 mg PO daily, Cozaar 25 mg PO daily, Toradol 10 mg PO Q8H PRN, Folic acid 1 mg PO daily, Trazodone 50 mg PO HS Social- admits to drinking alcohol for over 40 years Allergies- oral and contrast dye, milk Review of Systems - EENT Eyes: absent: Blurred Vision, Change in Vision - Cardiovascular Cardiovascular: Syncope. absent: Chest Pain, Chest Pain at Rest, Dyspnea - Respiratory Respiratory: absent: Dyspnea on Exertion, Pain with Coughing - Gastrointestinal Gastrointestinal: absent: Nausea, Vomiting - Musculoskeletal Musculoskeletal: absent: Back Pain - Neurological Neurological: Other - Psychiatric Psychiatric: absent: Hopelessness, Irritability Past Patient History - Infectious Disease Hx of Infectious Diseases: None - Past Medical History & Family History Past Medical History?: Yes - Past Social History Smoking Status: Former Smoker Alcohol: > 2 Drinks/Day - CARDIAC Hx Cardiac Disorders: Yes Hx Congestive Heart Failure: Yes Hx Hypertension: Yes Hx Peripheral Edema: Yes - PULMONARY Hx Respiratory Disorders: No Hx Tuberculosis: No - NEUROLOGICAL Hx Neurological Disorder: Yes Hx Syncope: Yes - HEENT Hx HEENT Problems: Yes Hx Cataracts: Yes ([facility].Cataract Extraction 2013) - RENAL Hx Chronic Kidney Disease: No Hx Kidney Stones: No - ENDOCRINE/METABOLIC Hx Endocrine Disorders: No - HEMATOLOGICAL/ONCOLOGICAL Hx Blood Disorders: Yes Hx Anemia: Yes Hx Human Immunodeficiency Virus (HIV): No - INTEGUMENTARY Hx Dermatological Problems: No - MUSCULOSKELETAL/RHEUMATOLOGICAL Hx Musculoskeletal Disorders: Yes Hx Arthritis: Yes Hx Falls: Yes - GASTROINTESTINAL Hx Gastrointestinal Disorders: Yes Hx Gastritis: Yes Hx Pancreatitis: Yes - GENITOURINARY/GYNECOLOGICAL Hx Genitourinary Disorders: No Hx Sexually Transmitted Disorders: No - PSYCHIATRIC Hx Psychophysiologic Disorder: Yes Hx Anxiety: Yes Hx Depression: Yes Hx Substance Use: No - SURGICAL HISTORY Hx Surgeries: Yes Other/Comment: endoscopy - ANESTHESIA Hx Anesthesia: Yes Hx Anesthesia Reactions: No Hx Malignant Hyperthermia: No Has any member of the family had a problem w/ anesthesia?: No Meds Allergies/Adverse Reactions: Allergies Allergy/AdvReac Type Severity Reaction Status Date / Time Iodinated Contrast- Oral and Allergy Severe SWELLING Verified 05/31/18 14:42 IV Dye shellfish derived Allergy Intermediate RASH Verified 05/31/18 14:42 milk AdvReac Intermediate DIARRHEA Verified 05/31/18 14:42 - Medications Medications: Current Medications Aspirin (Aspirin) 325 mg PO DAILY [facility] Last Admin: 06/01/18 09:44 Dose: 325 mg Chlordiazepoxide (Librium) 25 mg PO Q8 [facility] Last Admin: 06/01/18 05:17 Dose: 25 mg Folic Acid (Folic Acid) 1 mg PO DAILY [facility] Last Admin: 06/01/18 09:44 Dose: 1 mg Folic Acid 1 mg/ Thiamine HCl 100 mg/ Multivitamins/Vitamin C 10 ml/ Dextrose 1 ,011.2 mls @ 50 mls/hr IV .[id number] [facility] Last Admin: 05/31/18 22:12 Dose: 50 mls/hr Ketorolac Tromethamine (Toradol) 30 mg IVP Q6 PRN PRN Reason: Pain, moderate (4-7) Last Admin: 06/01/18 08:49 Dose: 30 mg Losartan Potassium (Cozaar) 25 mg PO DAILY [facility] Last Admin: 06/01/18 09:44 Dose: 25 mg Magnesium Oxide (Mag-Ox) 400 mg PO DAILY [facility] Last Admin: 09/04/18 09:43 Dose: 400 mg Multivitamins (Hexavitamin) 1 tab PO DAILY [facility] Last Admin: 06/01/18 09:44 Dose: 1 tab Pantoprazole Sodium (Protonix Ec Tab) 40 mg PO DAILY [facility] Last Admin: 06/01/18 09:44 Dose: 40 mg Thiamine HCl (Vitamin B1 Tab) 100 mg PO DAILY [facility] Last Admin: 06/01/18 09:44 Dose: 100 mg Trazodone HCl (Desyrel) 50 mg PO HS PRN PRN Reason: Insomnia Physical Exam - Constitutional Appears: Non-toxic, No Acute Distress - Head Exam Head Exam: ATRAUMATIC, NORMAL INSPECTION - Eye Exam Eye Exam: EOMI Pupil Exam: NORMAL ACCOMODATION - ENT Exam ENT Exam: Mucous Membranes Moist - Neck Exam Neck exam: Positive for: Full Rom - Respiratory Exam Respiratory Exam: NORMAL BREATHING PATTERN. absent: Wheezes - Cardiovascular Exam Cardiovascular Exam: +S1, +S2 - GI/Abdominal Exam GI & Abdominal Exam: Normal Bowel Sounds, Soft. absent: Tenderness - Extremities Exam Extremities exam: Positive for: full ROM, normal capillary refill, pedal pulses present. Negative for: calf tenderness, pedal edema - Back Exam Back exam: FULL ROM - Neurological Exam Neurological exam: Alert, CN II-XII Intact, Oriented x3 - Expanded Neurological Exam Expanded Cranial nerves: EOM's Intact: Normal Cerebellar Function: Finger to Nose: Abnormal Left, Abnormal Right Sensory exam: Lower Extremity Light Touch: Normal, Lower Extremity Temperature: Normal, Upper Extremity Light Touch: Normal, Upper Extremity Temperature: Normal Neuro motor strength exam: Left Upper Extremity: 5, Right Upper Extremity: 5, Left Lower Extremity: 5, Right Lower Extremity: 5 Coma Scale Verbal: Oriented - Psychiatric Exam Psychiatric exam: Normal Affect, Normal Mood - Skin Skin Exam: Dry, Normal Color, Warm Results - Vital Signs Recent Vital Signs: Last Vital Signs Temp 98 F 06/01/18 06:00 Pulse 73 06/01/18 08:00 Resp 14 06/01/18 08:00 BP 117/67 06/01/18 07:55 Pulse Ox 98 06/01/18 08:00 - Labs Result Diagrams: 06/01/18 06:56 05/31/18 15:00 Labs: Laboratory Results - last 24 hr 05/31/18 05/31/18 05/31/18 15:00 15:00 15:00 WBC 3.1 L RBC 2.73 L Hgb 8.7 L Hct 25.8 L MCV 94.4 H MCH 31.9 H MCHC 33.8 RDW 15.1 H Plt Count 160 MPV 8.8 Neut % (Auto) 48.7 L Lymph % (Auto) 33.7 [place] % (Auto) 12.7 H Eos % (Auto) 3.1 Baso % (Auto) 1.8 Neut # (Auto) 1.5 L Lymph # (Auto) 1.0 [place] # (Auto) 0.4 Eos # (Auto) 0.1 Baso # (Auto) 0.1 PT 11.9 INR 1.1 APTT 27 Sodium 142 Potassium 4.0 Chloride 102 Carbon Dioxide 24 Anion Gap 20 BUN 14 Creatinine 1.3 Est GFR ( Amer) > 60 Est GFR (Non-Af Amer) 56 Random Glucose 91 Calcium 8.6 Total Bilirubin 0.5 AST 75 H D ALT 31 Alkaline Phosphatase 67 Ammonia Total Creatine Kinase CK-MB (Mass) Troponin I < 0.0120 Total Protein 7.2 Albumin 4.3 Globulin 2.9 Albumin/Globulin Ratio 1.5 Lipase 230 Urine Color Urine Clarity Urine pH Ur Specific [place] Urine Protein Urine Glucose (UA) Urine Ketones Urine Blood Urine Nitrate Urine Bilirubin Urine Urobilinogen Ur Leukocyte Esterase Urine WBC (Auto) Urine RBC (Auto) Ur Squamous Epith Cells Urine Bacteria Urine Opiates Screen Urine Methadone Screen Ur Barbiturates Screen Ur Phencyclidine Scrn Ur Amphetamines Screen U Benzodiazepines Scrn U Oth Cocaine Metabols U Cannabinoids Screen Alcohol, Quantitative 05/31/18 05/31/18 05/31/18 16:12 16:12 19:39 WBC RBC Hgb Hct MCV MCH MCHC RDW Plt Count MPV Neut % (Auto) Lymph % (Auto) [place] % (Auto) Eos % (Auto) Baso % (Auto) Neut # (Auto) Lymph # (Auto) [place] # (Auto) Eos # (Auto) Baso # (Auto) PT INR APTT Sodium Potassium Chloride Carbon Dioxide Anion Gap BUN Creatinine Est GFR ( Amer) Est GFR (Non-Af Amer) Random Glucose Calcium Total Bilirubin AST ALT Alkaline Phosphatase Ammonia Total Creatine Kinase CK-MB (Mass) Troponin I Total Protein Albumin Globulin Albumin/Globulin Ratio Lipase Urine Color Yellow Urine Clarity Clear Urine pH 5.0 Ur Specific [place] 1.008 Urine Protein Negative Urine Glucose (UA) Normal Urine Ketones Negative Urine Blood Negative Urine Nitrate Negative Urine Bilirubin Negative Urine Urobilinogen Normal Ur Leukocyte Esterase 1+ H Urine WBC (Auto) 9 H Urine RBC (Auto) < 1 Ur Squamous Epith Cells 1 Urine Bacteria Occ H Urine Opiates Screen Negative Urine Methadone Screen Negative Ur Barbiturates Screen Negative Ur Phencyclidine Scrn Negative Ur Amphetamines Screen Negative U Benzodiazepines Scrn Negative U Oth Cocaine Metabols Negative U Cannabinoids Screen Negative Alcohol, Quantitative 262 H 05/31/18 06/01/18 06/01/18 22:56 05:59 06:56 WBC 2.5 L RBC 2.83 L Hgb 8.9 L Hct 26.2 L MCV 92.7 MCH 31.4 H MCHC 33.9 RDW 15.0 H Plt Count 145 MPV 8.5 Neut % (Auto) Lymph % (Auto) [place] % (Auto) Eos % (Auto) Baso % (Auto) Neut # (Auto) Lymph # (Auto) [place] # (Auto) Eos # (Auto) Baso # (Auto) PT INR APTT Sodium Potassium Chloride Carbon Dioxide Anion Gap BUN Creatinine Est GFR ( Amer) Est GFR (Non-Af Amer) Random Glucose Calcium Total Bilirubin AST ALT Alkaline Phosphatase Ammonia Total Creatine Kinase 1049 H 918 H CK-MB (Mass) 1.56 1.58 Troponin I < 0.0120 0.0130 Total Protein Albumin Globulin Albumin/Globulin Ratio Lipase Urine Color Urine Clarity Urine pH Ur Specific [place] Urine Protein Urine Glucose (UA) Urine Ketones Urine Blood Urine Nitrate Urine Bilirubin Urine Urobilinogen Ur Leukocyte Esterase Urine WBC (Auto) Urine RBC (Auto) Ur Squamous Epith Cells Urine Bacteria Urine Opiates Screen Urine Methadone Screen Ur Barbiturates Screen Ur Phencyclidine Scrn Ur Amphetamines Screen U Benzodiazepines Scrn U Oth Cocaine Metabols U Cannabinoids Screen Alcohol, Quantitative 06/01/18 06:57 WBC RBC Hgb Hct MCV MCH MCHC RDW Plt Count MPV Neut % (Auto) Lymph % (Auto) [place] % (Auto) Eos % (Auto) Baso % (Auto) Neut # (Auto) Lymph # (Auto) [place] # (Auto) Eos # (Auto) Baso # (Auto) PT INR APTT Sodium Potassium Chloride Carbon Dioxide Anion Gap BUN Creatinine Est GFR ( Amer) Est GFR (Non-Af Amer) Random Glucose Calcium Total Bilirubin AST ALT Alkaline Phosphatase Ammonia 13 D Total Creatine Kinase CK-MB (Mass) Troponin I Total Protein Albumin Globulin Albumin/Globulin Ratio Lipase Urine Color Urine Clarity Urine pH Ur Specific [place] Urine Protein Urine Glucose (UA) Urine Ketones Urine Blood Urine Nitrate Urine Bilirubin Urine Urobilinogen Ur Leukocyte Esterase Urine WBC (Auto) Urine RBC (Auto) Ur Squamous Epith Cells Urine Bacteria Urine Opiates Screen Urine Methadone Screen Ur Barbiturates Screen Ur Phencyclidine Scrn Ur Amphetamines Screen U Benzodiazepines Scrn U Oth Cocaine Metabols U Cannabinoids Screen Alcohol, Quantitative Assessment & Plan - Assessment and Plan (Free Text) Assessment: Syncope Has had several episodes in the past. History of implantable loop recorder- Patient states that this was last interrogated approx 2 months ago. May need to be interrogated again in light of recent event. Dilated Cardiomyopathy Likely secondary to chronic alcohol use Patient had cardiac cath 06/2017 which confirmed these findings. Per prior records, patient has had a MUGA scan performed showing EF of 65%. Will need to verify these records as this is not currently available in the medical chart. Last echo performed 06/2017. Will reorder echo. Will monitor HTN Losartan 25 mg PO daily Monitor Alcohol abuse Cessation counseling On Librium On multivitamins, folic acid and thiamine Prophylactic Measure GI Prophylaxis SCDs <Louis Dillard - Last Filed: 06/01/18 22:35> Meds - Medications Medications: Current Medications Aspirin (Aspirin) 325 mg PO DAILY [facility] Last Admin: 06/01/18 09:44 Dose: 325 mg Chlordiazepoxide (Librium) 25 mg PO Q8 [facility] Last Admin: 06/01/18 21:30 Dose: 25 mg Folic Acid (Folic Acid) 1 mg PO DAILY [facility] Last Admin: 06/01/18 09:44 Dose: 1 mg Folic Acid 1 mg/ Thiamine HCl 100 mg/ Multivitamins/Vitamin C 10 ml/ Dextrose 1 ,011.2 mls @ 50 mls/hr IV .[id number] [facility] Last Admin: 06/01/18 18:17 Dose: 50 mls/hr Ketorolac Tromethamine (Toradol) 30 mg IVP Q6 PRN PRN Reason: Pain, moderate (4-7) Last Admin: 06/01/18 21:30 Dose: 30 mg Losartan Potassium (Cozaar) 25 mg PO DAILY [facility] Last Admin: 06/01/18 09:44 Dose: 25 mg Magnesium Oxide (Mag-Ox) 400 mg PO DAILY [facility] Last Admin: 06/01/18 09:43 Dose: 400 mg Multivitamins (Hexavitamin) 1 tab PO DAILY [facility] Last Admin: 06/01/18 09:44 Dose: 1 tab Pantoprazole Sodium (Protonix Ec Tab) 40 mg PO DAILY [facility] Last Admin: 06/01/18 09:44 Dose: 40 mg Thiamine HCl (Vitamin B1 Tab) 100 mg PO DAILY [facility] Last Admin: 06/01/18 09:44 Dose: 100 mg Trazodone HCl (Desyrel) 50 mg PO HS PRN PRN Reason: Insomnia Last Admin: 06/01/18 21:30 Dose: 50 mg Results - Vital Signs Recent Vital Signs: Last Vital Signs Temp 98.2 F 06/01/18 12:00 Pulse 68 06/01/18 18:00 Resp 13 06/01/18 18:00 BP 135/95 H 06/01/18 15:56 Pulse Ox 99 06/01/18 18:00 - Labs Result Diagrams: 06/01/18 06:56 05/31/18 15:00 Labs: Laboratory Results - last 24 hr 05/31/18 06/01/18 06/01/18 22:56 05:59 06:56 WBC 2.5 L RBC 2.83 L Hgb 8.9 L Hct 26.2 L MCV 92.7 MCH 31.4 H MCHC 33.9 RDW 15.0 H Plt Count 145 MPV 8.5 Ammonia Total Creatine Kinase 1049 H 918 H CK-MB (Mass) 1.56 1.58 Troponin I < 0.0120 0.0130 06/01/18 06/01/18 06:57 11:41 WBC RBC Hgb Hct MCV MCH MCHC RDW Plt Count MPV Ammonia 13 D 13 Total Creatine Kinase CK-MB (Mass) Troponin I Assessment & Plan - Assessment and Plan (Free Text) Assessment: Patient seen and evaluated personally by me Plan of care d/w the resident and as documented
--- NOTE | 2018-06-01 10:36 | CP.PCM.CON ---
<Michelle Lui - Last Filed: 06/01/18 10:27> History of Present Illness - History of Present Illness History of Present Illness: Gastroenterology Fellow/PGY6 Consult Note 62 year old male with PMH of HCV (treatment naive) and Alcohol abuse s/p discharge from detox 05/21 presenting after being found down. Patient oriented on evaluation. Admits to having increased alcohol intake with friends yesterday and blacking out while walking in the street. He notes prior similar episodes of intoxication and black outs. Denies nausea, vomiting, hematemesis, abdominal pain, diarrrhea, hematochezia, or melena. Admits to constipation with last bowel movement two days ago. Admits to 30-35 pound weight loss in the last 2-3 months. Last EGD and colonoscopy 02/2018 to evaluate iron deficiency anemia with possible chronic blood loss with findings of medium-sized hiatal hernia, gastritis, no polyps, and internal hemorrhoids. Multiple endoscopic evaluations 2016 to present with LAGC esophagitis, gastric erosion, H. pylori negative gastritis, and erythematous duodenopathy. Family History- Father- throat cancer Social History- admits to alcohol abuse, denies tobacco or illicit drug use ( denies IVDA or snorting), denies high risk sexual behavior, no tattoos Surgical History- loop recorder 11/2016 Review of Systems - Review of Systems Review of Systems: 12-point review of systems negative except for as above Past Patient History - Infectious Disease Hx of Infectious Diseases: None - Past Medical History & Family History Past Medical History?: Yes - Past Social History Smoking Status: Former Smoker - CARDIAC Hx Cardiac Disorders: Yes Hx Congestive Heart Failure: Yes Hx Hypertension: Yes Hx Peripheral Edema: Yes - PULMONARY Hx Respiratory Disorders: No Hx Tuberculosis: No - NEUROLOGICAL Hx Neurological Disorder: Yes Hx Syncope: Yes - HEENT Hx HEENT Problems: Yes Hx Cataracts: Yes ([place]andon.Cataract Extraction 2013) - RENAL Hx Chronic Kidney Disease: No Hx Kidney Stones: No - ENDOCRINE/METABOLIC Hx Endocrine Disorders: No - HEMATOLOGICAL/ONCOLOGICAL Hx Blood Disorders: Yes Hx Anemia: Yes Hx Human Immunodeficiency Virus (HIV): No - INTEGUMENTARY Hx Dermatological Problems: No - MUSCULOSKELETAL/RHEUMATOLOGICAL Hx Musculoskeletal Disorders: Yes Hx Arthritis: Yes Hx Falls: Yes - GASTROINTESTINAL Hx Gastrointestinal Disorders: Yes Hx Gastritis: Yes Hx Pancreatitis: Yes - GENITOURINARY/GYNECOLOGICAL Hx Genitourinary Disorders: No Hx Sexually Transmitted Disorders: No - PSYCHIATRIC Hx Psychophysiologic Disorder: Yes Hx Anxiety: Yes Hx Depression: Yes Hx Substance Use: No - SURGICAL HISTORY Hx Surgeries: Yes Other/Comment: endoscopy - ANESTHESIA Hx Anesthesia: Yes Hx Anesthesia Reactions: No Hx Malignant Hyperthermia: No Has any member of the family had a problem w/ anesthesia?: No Meds Allergies/Adverse Reactions: Allergies Allergy/AdvReac Type Severity Reaction Status Date / Time Iodinated Contrast- Oral and Allergy Severe SWELLING Verified 05/31/18 14:42 IV Dye shellfish derived Allergy Intermediate RASH Verified 05/31/18 14:42 milk AdvReac Intermediate DIARRHEA Verified 05/31/18 14:42 - Medications Medications: Current Medications Aspirin (Aspirin) 325 mg PO DAILY [facility] Last Admin: 06/01/18 09:44 Dose: 325 mg Chlordiazepoxide (Librium) 25 mg PO Q8 [facility] Last Admin: 06/01/18 05:17 Dose: 25 mg Folic Acid (Folic Acid) 1 mg PO DAILY [facility] Last Admin: 06/01/18 09:44 Dose: 1 mg Folic Acid 1 mg/ Thiamine HCl 100 mg/ Multivitamins/Vitamin C 10 ml/ Dextrose 1 ,011.2 mls @ 50 mls/hr IV .[id number] [facility] Last Admin: 05/31/18 22:12 Dose: 50 mls/hr Ketorolac Tromethamine (Toradol) 30 mg IVP Q6 PRN PRN Reason: Pain, moderate (4-7) Last Admin: 06/01/18 08:49 Dose: 30 mg Losartan Potassium (Cozaar) 25 mg PO DAILY [facility] Last Admin: 06/01/18 09:44 Dose: 25 mg Magnesium Oxide (Mag-Ox) 400 mg PO DAILY [facility] Last Admin: 06/01/18 09:43 Dose: 400 mg Multivitamins (Hexavitamin) 1 tab PO DAILY [facility] Last Admin: 06/01/18 09:44 Dose: 1 tab Pantoprazole Sodium (Protonix Ec Tab) 40 mg PO DAILY [facility] Last Admin: 06/01/18 09:44 Dose: 40 mg Thiamine HCl (Vitamin B1 Tab) 100 mg PO DAILY [facility] Last Admin: 06/01/18 09:44 Dose: 100 mg Trazodone HCl (Desyrel) 50 mg PO HS PRN PRN Reason: Insomnia Physical Exam - Constitutional Appears: Non-toxic, No Acute Distress - Head Exam Head Exam: ATRAUMATIC, NORMOCEPHALIC - Eye Exam Eye Exam: EOMI, PERRL Pupil Exam: PERRL. absent: Miosis, Mydriatic - ENT Exam ENT Exam: Mucous Membranes Moist, Normal Oropharynx - Neck Exam Neck exam: Positive for: Full Rom, Normal Inspection - Respiratory Exam Respiratory Exam: Clear to Auscultation Bilateral. absent: Rales, Rhonchi, Wheezes - Cardiovascular Exam Cardiovascular Exam: RRR, +S1, +S2. absent: Gallop, Rubs - GI/Abdominal Exam GI & Abdominal Exam: Normal Bowel Sounds, Soft. absent: Distended, Firm, Guarding, Organomegaly, Rebound, Rigid, Tenderness - Rectal Exam Rectal Exam: NORMAL INSPECTION. absent: Black Stool, Bloody Stool, Hemorrhoids , Fecal Impaction Additional comments: brown stool in rectal vault - Extremities Exam Extremities exam: Positive for: normal inspection. Negative for: pedal edema - Neurological Exam Neurological exam: Alert, Oriented x3 - Psychiatric Exam Psychiatric exam: Normal Affect, Normal Mood - Skin Skin Exam: Dry, Intact, Normal Color, Warm Results - Vital Signs Recent Vital Signs: Last Vital Signs Temp 98 F 06/01/18 06:00 Pulse 73 06/01/18 08:00 Resp 14 06/01/18 08:00 BP 117/67 06/01/18 07:55 Pulse Ox 98 06/01/18 08:00 - Labs Result Diagrams: 06/01/18 06:56 05/31/18 15:00 Labs: Laboratory Results - last 24 hr 05/31/18 05/31/18 05/31/18 15:00 15:00 15:00 WBC 3.1 L RBC 2.73 L Hgb 8.7 L Hct 25.8 L MCV 94.4 H MCH 31.9 H MCHC 33.8 RDW 15.1 H Plt Count 160 MPV 8.8 Neut % (Auto) 48.7 L Lymph % (Auto) 33.7 [place] % (Auto) 12.7 H Eos % (Auto) 3.1 Baso % (Auto) 1.8 Neut # (Auto) 1.5 L Lymph # (Auto) 1.0 [place] # (Auto) 0.4 Eos # (Auto) 0.1 Baso # (Auto) 0.1 PT 11.9 INR 1.1 APTT 27 Sodium 142 Potassium 4.0 Chloride 102 Carbon Dioxide 24 Anion Gap 20 BUN 14 Creatinine 1.3 Est GFR ( Amer) > 60 Est GFR (Non-Af Amer) 56 Random Glucose 91 Calcium 8.6 Total Bilirubin 0.5 AST 75 H D ALT 31 Alkaline Phosphatase 67 Ammonia Total Creatine Kinase CK-MB (Mass) Troponin I < 0.0120 Total Protein 7.2 Albumin 4.3 Globulin 2.9 Albumin/Globulin Ratio 1.5 Lipase 230 Urine Color Urine Clarity Urine pH Ur Specific [place] Urine Protein Urine Glucose (UA) Urine Ketones Urine Blood Urine Nitrate Urine Bilirubin Urine Urobilinogen Ur Leukocyte Esterase Urine WBC (Auto) Urine RBC (Auto) Ur Squamous Epith Cells Urine Bacteria Urine Opiates Screen Urine Methadone Screen Ur Barbiturates Screen Ur Phencyclidine Scrn Ur Amphetamines Screen U Benzodiazepines Scrn U Oth Cocaine Metabols U Cannabinoids Screen Alcohol, Quantitative 05/31/18 05/31/18 05/31/18 16:12 16:12 19:39 WBC RBC Hgb Hct MCV MCH MCHC RDW Plt Count MPV Neut % (Auto) Lymph % (Auto) [place] % (Auto) Eos % (Auto) Baso % (Auto) Neut # (Auto) Lymph # (Auto) [place] # (Auto) Eos # (Auto) Baso # (Auto) PT INR APTT Sodium Potassium Chloride Carbon Dioxide Anion Gap BUN Creatinine Est GFR ( Amer) Est GFR (Non-Af Amer) Random Glucose Calcium Total Bilirubin AST ALT Alkaline Phosphatase Ammonia Total Creatine Kinase CK-MB (Mass) Troponin I Total Protein Albumin Globulin Albumin/Globulin Ratio Lipase Urine Color Yellow Urine Clarity Clear Urine pH 5.0 Ur Specific [place] 1.008 Urine Protein Negative Urine Glucose (UA) Normal Urine Ketones Negative Urine Blood Negative Urine Nitrate Negative Urine Bilirubin Negative Urine Urobilinogen Normal Ur Leukocyte Esterase 1+ H Urine WBC (Auto) 9 H Urine RBC (Auto) < 1 Ur Squamous Epith Cells 1 Urine Bacteria Occ H Urine Opiates Screen Negative Urine Methadone Screen Negative Ur Barbiturates Screen Negative Ur Phencyclidine Scrn Negative Ur Amphetamines Screen Negative U Benzodiazepines Scrn Negative U Oth Cocaine Metabols Negative U Cannabinoids Screen Negative Alcohol, Quantitative 262 H 05/31/18 06/01/18 06/01/18 22:56 05:59 06:56 WBC 2.5 L RBC 2.83 L Hgb 8.9 L Hct 26.2 L MCV 92.7 MCH 31.4 H MCHC 33.9 RDW 15.0 H Plt Count 145 MPV 8.5 Neut % (Auto) Lymph % (Auto) [place] % (Auto) Eos % (Auto) Baso % (Auto) Neut # (Auto) Lymph # (Auto) [place] # (Auto) Eos # (Auto) Baso # (Auto) PT INR APTT Sodium Potassium Chloride Carbon Dioxide Anion Gap BUN Creatinine Est GFR ( Amer) Est GFR (Non-Af Amer) Random Glucose Calcium Total Bilirubin AST ALT Alkaline Phosphatase Ammonia Total Creatine Kinase 1049 H 918 H CK-MB (Mass) 1.56 1.58 Troponin I < 0.0120 0.0130 Total Protein Albumin Globulin Albumin/Globulin Ratio Lipase Urine Color Urine Clarity Urine pH Ur Specific [place] Urine Protein Urine Glucose (UA) Urine Ketones Urine Blood Urine Nitrate Urine Bilirubin Urine Urobilinogen Ur Leukocyte Esterase Urine WBC (Auto) Urine RBC (Auto) Ur Squamous Epith Cells Urine Bacteria Urine Opiates Screen Urine Methadone Screen Ur Barbiturates Screen Ur Phencyclidine Scrn Ur Amphetamines Screen U Benzodiazepines Scrn U Oth Cocaine Metabols U Cannabinoids Screen Alcohol, Quantitative 06/01/18 06:57 WBC RBC Hgb Hct MCV MCH MCHC RDW Plt Count MPV Neut % (Auto) Lymph % (Auto) [place] % (Auto) Eos % (Auto) Baso % (Auto) Neut # (Auto) Lymph # (Auto) [place] # (Auto) Eos # (Auto) Baso # (Auto) PT INR APTT Sodium Potassium Chloride Carbon Dioxide Anion Gap BUN Creatinine Est GFR ( Amer) Est GFR (Non-Af Amer) Random Glucose Calcium Total Bilirubin AST ALT Alkaline Phosphatase Ammonia 13 D Total Creatine Kinase CK-MB (Mass) Troponin I Total Protein Albumin Globulin Albumin/Globulin Ratio Lipase Urine Color Urine Clarity Urine pH Ur Specific [place] Urine Protein Urine Glucose (UA) Urine Ketones Urine Blood Urine Nitrate Urine Bilirubin Urine Urobilinogen Ur Leukocyte Esterase Urine WBC (Auto) Urine RBC (Auto) Ur Squamous Epith Cells Urine Bacteria Urine Opiates Screen Urine Methadone Screen Ur Barbiturates Screen Ur Phencyclidine Scrn Ur Amphetamines Screen U Benzodiazepines Scrn U Oth Cocaine Metabols U Cannabinoids Screen Alcohol, Quantitative Assessment & Plan - Assessment and Plan (Free Text) Assessment: 62 year old male with PMH of HCV (treatment naive) and Alcohol abuse s/p discharge from detox 05/21 presenting after being found down. Active treatment of alcohol withdrawal. GI consultation for anemia. Last EGD and colonoscopy 2017 to evaluate iron deficiency anemia with possible chronic blood loss with findings of medium-sized hiatal hernia, gastritis, no polyps, and internal hemorrhoids. Multiple endoscopic evaluations 2016 to present with LAGC esophagitis, gastric erosion, H. pylori negative gastritis, and erythematous duodenopathy. Plan: -H/H baseline -rectal exam- brown stool -no concern for overt GI blood loss -recommend stop Toradol with history of erosive gastritis and duodenopathy -continue PPI daily -outpatient follow up of HCV- no prior treatment -03/22/18 AFP 1.3 -03/22/18 U/S- no hepatic lesions -Thank you for opportunity to participate in the care of this patient. Please contact with questions or concerns <Toney Farooq - Last Filed: 06/01/18 11:23> Meds - Medications Medications: Current Medications Aspirin (Aspirin) 325 mg PO DAILY [facility] Last Admin: 06/01/18 09:44 Dose: 325 mg Chlordiazepoxide (Librium) 25 mg PO Q8 [facility] Last Admin: 06/01/18 05:17 Dose: 25 mg Folic Acid (Folic Acid) 1 mg PO DAILY [facility] Last Admin: 06/01/18 09:44 Dose: 1 mg Folic Acid 1 mg/ Thiamine HCl 100 mg/ Multivitamins/Vitamin C 10 ml/ Dextrose 1 ,011.2 mls @ 50 mls/hr IV .[id number] [facility] Last Admin: 05/31/18 22:12 Dose: 50 mls/hr Ketorolac Tromethamine (Toradol) 30 mg IVP Q6 PRN PRN Reason: Pain, moderate (4-7) Last Admin: 06/01/18 08:49 Dose: 30 mg Losartan Potassium (Cozaar) 25 mg PO DAILY [facility] Last Admin: 06/01/18 09:44 Dose: 25 mg Magnesium Oxide (Mag-Ox) 400 mg PO DAILY [facility] Last Admin: 06/01/18 09:43 Dose: 400 mg Multivitamins (Hexavitamin) 1 tab PO DAILY [facility] Last Admin: 06/01/18 09:44 Dose: 1 tab Pantoprazole Sodium (Protonix Ec Tab) 40 mg PO DAILY [facility] Last Admin: 06/01/18 09:44 Dose: 40 mg Thiamine HCl (Vitamin B1 Tab) 100 mg PO DAILY [facility] Last Admin: 06/01/18 09:44 Dose: 100 mg Trazodone HCl (Desyrel) 50 mg PO HS PRN PRN Reason: Insomnia Results - Vital Signs Recent Vital Signs: Last Vital Signs Temp 98 F 06/01/18 06:00 Pulse 74 06/01/18 10:00 Resp 14 06/01/18 08:00 BP 117/67 06/01/18 07:55 Pulse Ox 98 06/01/18 08:00 - Labs Result Diagrams: 06/01/18 06:56 05/31/18 15:00 Labs: Laboratory Results - last 24 hr 05/31/18 05/31/18 05/31/18 15:00 15:00 15:00 WBC 3.1 L RBC 2.73 L Hgb 8.7 L Hct 25.8 L MCV 94.4 H MCH 31.9 H MCHC 33.8 RDW 15.1 H Plt Count 160 MPV 8.8 Neut % (Auto) 48.7 L Lymph % (Auto) 33.7 [place] % (Auto) 12.7 H Eos % (Auto) 3.1 Baso % (Auto) 1.8 Neut # (Auto) 1.5 L Lymph # (Auto) 1.0 [place] # (Auto) 0.4 Eos # (Auto) 0.1 Baso # (Auto) 0.1 PT 11.9 INR 1.1 APTT 27 Sodium 142 Potassium 4.0 Chloride 102 Carbon Dioxide 24 Anion Gap 20 BUN 14 Creatinine 1.3 Est GFR ( Amer) > 60 Est GFR (Non-Af Amer) 56 Random Glucose 91 Calcium 8.6 Total Bilirubin 0.5 AST 75 H D ALT 31 Alkaline Phosphatase 67 Ammonia Total Creatine Kinase CK-MB (Mass) Troponin I < 0.0120 Total Protein 7.2 Albumin 4.3 Globulin 2.9 Albumin/Globulin Ratio 1.5 Lipase 230 Urine Color Urine Clarity Urine pH Ur Specific [place] Urine Protein Urine Glucose (UA) Urine Ketones Urine Blood Urine Nitrate Urine Bilirubin Urine Urobilinogen Ur Leukocyte Esterase Urine WBC (Auto) Urine RBC (Auto) Ur Squamous Epith Cells Urine Bacteria Urine Opiates Screen Urine Methadone Screen Ur Barbiturates Screen Ur Phencyclidine Scrn Ur Amphetamines Screen U Benzodiazepines Scrn U Oth Cocaine Metabols U Cannabinoids Screen Alcohol, Quantitative 05/31/18 05/31/18 05/31/18 16:12 16:12 19:39 WBC RBC Hgb Hct MCV MCH MCHC RDW Plt Count MPV Neut % (Auto) Lymph % (Auto) [place] % (Auto) Eos % (Auto) Baso % (Auto) Neut # (Auto) Lymph # (Auto) [place] # (Auto) Eos # (Auto) Baso # (Auto) PT INR APTT Sodium Potassium Chloride Carbon Dioxide Anion Gap BUN Creatinine Est GFR ( Amer) Est GFR (Non-Af Amer) Random Glucose Calcium Total Bilirubin AST ALT Alkaline Phosphatase Ammonia Total Creatine Kinase CK-MB (Mass) Troponin I Total Protein Albumin Globulin Albumin/Globulin Ratio Lipase Urine Color Yellow Urine Clarity Clear Urine pH 5.0 Ur Specific [place] 1.008 Urine Protein Negative Urine Glucose (UA) Normal Urine Ketones Negative Urine Blood Negative Urine Nitrate Negative Urine Bilirubin Negative Urine Urobilinogen Normal Ur Leukocyte Esterase 1+ H Urine WBC (Auto) 9 H Urine RBC (Auto) < 1 Ur Squamous Epith Cells 1 Urine Bacteria Occ H Urine Opiates Screen Negative Urine Methadone Screen Negative Ur Barbiturates Screen Negative Ur Phencyclidine Scrn Negative Ur Amphetamines Screen Negative U Benzodiazepines Scrn Negative U Oth Cocaine Metabols Negative U Cannabinoids Screen Negative Alcohol, Quantitative 262 H 05/31/18 06/01/18 06/01/18 22:56 05:59 06:56 WBC 2.5 L RBC 2.83 L Hgb 8.9 L Hct 26.2 L MCV 92.7 MCH 31.4 H MCHC 33.9 RDW 15.0 H Plt Count 145 MPV 8.5 Neut % (Auto) Lymph % (Auto) [place] % (Auto) Eos % (Auto) Baso % (Auto) Neut # (Auto) Lymph # (Auto) [place] # (Auto) Eos # (Auto) Baso # (Auto) PT INR APTT Sodium Potassium Chloride Carbon Dioxide Anion Gap BUN Creatinine Est GFR ( Amer) Est GFR (Non-Af Amer) Random Glucose Calcium Total Bilirubin AST ALT Alkaline Phosphatase Ammonia Total Creatine Kinase 1049 H 918 H CK-MB (Mass) 1.56 1.58 Troponin I < 0.0120 0.0130 Total Protein Albumin Globulin Albumin/Globulin Ratio Lipase Urine Color Urine Clarity Urine pH Ur Specific [place] Urine Protein Urine Glucose (UA) Urine Ketones Urine Blood Urine Nitrate Urine Bilirubin Urine Urobilinogen Ur Leukocyte Esterase Urine WBC (Auto) Urine RBC (Auto) Ur Squamous Epith Cells Urine Bacteria Urine Opiates Screen Urine Methadone Screen Ur Barbiturates Screen Ur Phencyclidine Scrn Ur Amphetamines Screen U Benzodiazepines Scrn U Oth Cocaine Metabols U Cannabinoids Screen Alcohol, Quantitative 06/01/18 06:57 WBC RBC Hgb Hct MCV MCH MCHC RDW Plt Count MPV Neut % (Auto) Lymph % (Auto) [place] % (Auto) Eos % (Auto) Baso % (Auto) Neut # (Auto) Lymph # (Auto) [place] # (Auto) Eos # (Auto) Baso # (Auto) PT INR APTT Sodium Potassium Chloride Carbon Dioxide Anion Gap BUN Creatinine Est GFR ( Amer) Est GFR (Non-Af Amer) Random Glucose Calcium Total Bilirubin AST ALT Alkaline Phosphatase Ammonia 13 D Total Creatine Kinase CK-MB (Mass) Troponin I Total Protein Albumin Globulin Albumin/Globulin Ratio Lipase Urine Color Urine Clarity Urine pH Ur Specific [place] Urine Protein Urine Glucose (UA) Urine Ketones Urine Blood Urine Nitrate Urine Bilirubin Urine Urobilinogen Ur Leukocyte Esterase Urine WBC (Auto) Urine RBC (Auto) Ur Squamous Epith Cells Urine Bacteria Urine Opiates Screen Urine Methadone Screen Ur Barbiturates Screen Ur Phencyclidine Scrn Ur Amphetamines Screen U Benzodiazepines Scrn U Oth Cocaine Metabols U Cannabinoids Screen Alcohol, Quantitative Attending/Attestation - Attestation I have personally seen and examined this patient.: Yes I have fully participated in the care of the patient.: Yes I have reviewed all pertinent clinical information: Yes Notes (Text): 06/01/18 11:18 I have seen and examined patient with GI fellow. Agree with above documentation with the following additions. In brief, this is a 62 year old male with medical history of ETOH abuse, withdrawal related seizures, HCV, who presents to hospital following seizure episode and altered mental status. GI called for evaluation of anemia. He does endorse intermittent vague abdominal pain along with unexplained 30 pound weight loss over the past 2-3 months. He otherwise denies nausea, vomiting, fever/chills, rectal bleeding. He had an EGD /colonoscopy with Dr. Valencia in February 2018 which showed gastritis, hiatal hernia, esophagitis. Review of vitals from today are normal. ETOH abuse Seizure secondary to withdrawal HCV Anemia - rectal exam performed today shows soft brown stool without palpable lesions - Diet as tolerated - H/H at baseline, no evidence of overt bleeding noted - Continue with PPI therapy, would suggest discontinuing toradol and avoiding NSAID use - Patient requires outpatient evaluation of chronic HCV - ETOH cessation counseling - No further planned GI interventions at this time, will sign off case. Please reconsult as necessary, thank you.
[2018-06-01] MEDS: Folic Acid 1 MG, Thiamine 100 MG, Multivitamin (MVI) 10 ML in Dextrose 5% In Water 1,00... IV SCH (18:17)
--- NOTE | 2018-06-01 18:26 | CON ---
Copied To: Christiano Koch MD Attending MD: Shaina Silveira MD DATE: 06/01/2018 LOCATION: Room #ICU, bed 9. REASON FOR CONSULTATION: Syncope. CHIEF COMPLAINT: The patient was brought into [facility] with a history of syncopal episode while he was crossing the street. From neurological point of view, I was called in to evaluate him for further management. HISTORY OF PRESENT ILLNESS: Mr. Adrián Haney is a 62-year-old right-handed thinly built male, following drinks in the bar, on crossing the street, next thing he realized he was on the floor. He woke up with severe chest pain. They decided to come to the hospital. He had a similar episodes it happened in the March been admitted and had extensive workup was done and sent home. History of syncopal attack three to four times for the last year and half. Never seen a neurologist and never been worked up as per the patient. Usually, he drinks regularly. PAST MEDICAL HISTORY: Pancreatitis related to alcohol abuse, anemia, anxiety, arthritis, CHF, depression, gastrointestinal ulcer, and hypertension. ALLERGIES: CONTRAST MEDIUM MEDIA. REVIEW OF SYSTEM: A 12-point system being reviewed. From neuro, syncopal attack. PHYSICAL EXAMINATION: VITAL SIGNS: Blood pressure 117/73, mean arterial pressure 90, respiratory rate 18, temperature 97.9 with a pulse rate 73 and regular. Neck: Supple. No carotid bruits. HEART: Sounds regular. CHEST: Fair air entry. EXTREMITIES: No edema in legs. NEUROLOGIC EXAMINATION: Mental Status Examination: He is awake, alert, and oriented to person, place, and time. Speech is clear. Naming, repetition, fluency, and comprehension all within normal. No antegrade amnesia, retrograde amnesia is there at present. No hallucination. No confabulation. No suicidal ideation or depression. Cranial Nerve Examination: Visual field intact. Pupils reactive to light. Extraocular movements normal. No nystagmus. No facial sensory deficit. No facial asymmetry. Hearing is normal. Tongue is midline. Good gag. Motor Examination: Outstretched hand with eyes closed. No drift noted. Power is symmetric on either side. The patient showed tremor on outstretched hand with eyes closed. Mild asterixis also noted. Deep tendon reflexes biceps, brachialis, triceps 1+ both knees are absent. Both ankles are absent. Plantars are downgoing. 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 Coordination: Finger-nose testing shows mild dysmetria noted. Gait: Deferred at this time. Workup: CT of the head showed mild atrophy with periventricular ischemic changes. BLOOD WORKUP: WBC 2.5, hemoglobin 98.9, hematocrit 26.2, and platelet 145,000. AST 75, alkaline phosphatase 918, troponin 0.0130, and lipase 230. Urinalysis is 1+ leukocytes, bacteria occasional, and urine tox screen shows alcohol level 262. CONCLUSION: 1. Mr. Adrián Haney been presenting with possible ethanol related blackouts. No witnessed seizures. The patient also stated that he was not told that he did have seizures. Even at the scene, no bowel and bladder incontinence or bitten tongue. 2. 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 3. The patient is anemic and the patient having a risk factor of gastroduodenal ulcer on top, he is taking aspirin. RECOMMENDATIONS: 1. EEG to rule out electrographic seizures. 2. Hydration. Continue vitamin B1 and Librium. 3. Abstinence from alcohol evaluation. 4. GI consultation. For anemia, gastritis and possible pancreatitis. 5. Syncopal attack. 6. Cardiology consultation for syncope and chest pain. 7. No further workup is needed at present. No antiepileptic drug is needed at present. The patient will be followed closely with you. Christiano Koch MD
--- NOTE | 2018-06-01 19:28 | CP.PCM.PN ---
Subjective - Date & Time of Evaluation Date of Evaluation: 06/01/18 Time of Evaluation: 14:30 - Subjective Subjective: clinically same Objective - Vital Signs/Intake and Output Vital Signs (last 24 hours): Temp Pulse Resp BP Pulse Ox 98.2 F 68 13 135/95 H 99 06/01/18 12:00 06/01/18 18:00 06/01/18 18:00 06/01/18 15:56 06/01/18 18:00 Intake and Output: 06/01/18 06/02/18 18:59 06:59 Intake Total 1150 Output Total 2600 Balance -1450 - Medications Medications: Current Medications Aspirin (Aspirin) 325 mg PO DAILY [facility] Last Admin: 06/01/18 09:44 Dose: 325 mg Chlordiazepoxide (Librium) 25 mg PO Q8 [facility] Last Admin: 06/01/18 14:11 Dose: 25 mg Folic Acid (Folic Acid) 1 mg PO DAILY [facility] Last Admin: 06/01/18 09:44 Dose: 1 mg Folic Acid 1 mg/ Thiamine HCl 100 mg/ Multivitamins/Vitamin C 10 ml/ Dextrose 1 ,011.2 mls @ 50 mls/hr IV .[id number] [facility] Last Admin: 06/01/18 18:17 Dose: 50 mls/hr Ketorolac Tromethamine (Toradol) 30 mg IVP Q6 PRN PRN Reason: Pain, moderate (4-7) Last Admin: 06/01/18 14:13 Dose: 30 mg Losartan Potassium (Cozaar) 25 mg PO DAILY [facility] Last Admin: 06/01/18 09:44 Dose: 25 mg Magnesium Oxide (Mag-Ox) 400 mg PO DAILY [facility] Last Admin: 06/01/18 09:43 Dose: 400 mg Multivitamins (Hexavitamin) 1 tab PO DAILY [facility] Last Admin: 06/01/18 09:44 Dose: 1 tab Pantoprazole Sodium (Protonix Ec Tab) 40 mg PO DAILY [facility] Last Admin: 06/01/18 09:44 Dose: 40 mg Thiamine HCl (Vitamin B1 Tab) 100 mg PO DAILY [facility] Last Admin: 06/01/18 09:44 Dose: 100 mg Trazodone HCl (Desyrel) 50 mg PO HS PRN PRN Reason: Insomnia - Labs Labs: 06/01/18 06:56 05/31/18 15:00 PT 11.9 SECONDS (9.7-12.2) 05/31/18 15:00 INR 1.1 05/31/18 15:00 APTT 27 SECONDS (21-34) 05/31/18 15:00 - Constitutional Appears: Well - Head Exam Head Exam: ATRAUMATIC, NORMAL INSPECTION, NORMOCEPHALIC - Eye Exam Eye Exam: EOMI, Normal appearance, PERRL Pupil Exam: NORMAL ACCOMODATION, PERRL - ENT Exam ENT Exam: Mucous Membranes Moist, Normal Exam - Neck Exam Neck Exam: Full ROM, Normal Inspection. absent: Lymphadenopathy - Respiratory Exam Respiratory Exam: Decreased Breath Sounds - Cardiovascular Exam Cardiovascular Exam: REGULAR RHYTHM, +S1, +S2 - GI/Abdominal Exam GI & Abdominal Exam: Soft, Diminished Bowel Sounds - Rectal Exam Rectal Exam: Deferred Assessment and Plan - Assessment and Plan (Free Text) Plan: Patient seen and examined bedside Recurrent syncope: ?? alcohol related -Neuro consult done, help appreciated EEG, vitamin B1 Cardiac consult done, help appreciated Last echo performed 06/2017, reordered echo alcohol abuse-cessation counseling, On lithium On multivitamins GI prophylaxis
--- NOTE | 2018-06-02 07:45 | CP.PCM.PN ---
<GayYonyelisa - Last Filed: 06/02/18 15:30> Subjective - Date & Time of Evaluation Date of Evaluation: 06/02/18 Time of Evaluation: 09:20 - Subjective Subjective: Cardiology Progress Note- Dr. Dillard's service Patient seen and examined. Patient states that he does not want to sit in bed all day. Patient is tolerating a diet without complaints. He denies chest pain , palpitations, shortness of breath, nausea, headaches at this time. Objective - Vital Signs/Intake and Output Vital Signs (last 24 hours): Temp Pulse Resp BP Pulse Ox 97.3 F L 64 15 137/94 H 98 06/02/18 06:00 06/02/18 06:00 06/02/18 06:00 06/02/18 03:55 06/02/18 06:00 - Medications Medications: Current Medications Aspirin (Aspirin) 325 mg PO DAILY [facility] Last Admin: 06/01/18 09:44 Dose: 325 mg Chlordiazepoxide (Librium) 25 mg PO Q8 [facility] Last Admin: 06/02/18 07:33 Dose: 25 mg Folic Acid (Folic Acid) 1 mg PO DAILY [facility] Last Admin: 06/01/18 09:44 Dose: 1 mg Folic Acid 1 mg/ Thiamine HCl 100 mg/ Multivitamins/Vitamin C 10 ml/ Dextrose 1 ,011.2 mls @ 50 mls/hr IV .[id number] [facility] Last Admin: 06/01/18 18:17 Dose: 50 mls/hr Ketorolac Tromethamine (Toradol) 30 mg IVP Q6 PRN PRN Reason: Pain, moderate (4-7) Last Admin: 06/01/18 21:30 Dose: 30 mg Losartan Potassium (Cozaar) 25 mg PO DAILY [facility] Last Admin: 06/01/18 09:44 Dose: 25 mg Magnesium Oxide (Mag-Ox) 400 mg PO DAILY [facility] Last Admin: 06/01/18 09:43 Dose: 400 mg Multivitamins (Hexavitamin) 1 tab PO DAILY [facility] Last Admin: 06/01/18 09:44 Dose: 1 tab Pantoprazole Sodium (Protonix Ec Tab) 40 mg PO DAILY [facility] Last Admin: 06/01/18 09:44 Dose: 40 mg Thiamine HCl (Vitamin B1 Tab) 100 mg PO DAILY [facility] Last Admin: 06/01/18 09:44 Dose: 100 mg Trazodone HCl (Desyrel) 50 mg PO HS PRN PRN Reason: Insomnia Last Admin: 06/01/18 21:30 Dose: 50 mg - Labs Labs: 06/01/18 06:56 05/31/18 15:00 PT 11.9 SECONDS (9.7-12.2) 05/31/18 15:00 INR 1.1 05/31/18 15:00 APTT 27 SECONDS (21-34) 05/31/18 15:00 - Constitutional Appears: Non-toxic, No Acute Distress - Head Exam Head Exam: ATRAUMATIC, NORMAL INSPECTION - Eye Exam Eye Exam: EOMI, Normal appearance, PERRL - ENT Exam ENT Exam: Mucous Membranes Moist - Neck Exam Neck Exam: Full ROM - Respiratory Exam Respiratory Exam: NORMAL BREATHING PATTERN - Cardiovascular Exam Cardiovascular Exam: +S1, +S2 - GI/Abdominal Exam GI & Abdominal Exam: Soft, Normal Bowel Sounds - Extremities Exam Extremities Exam: Full ROM, Normal Capillary Refill - Back Exam Back Exam: Full ROM - Neurological Exam Neurological Exam: Alert, Awake, Oriented x3 - Psychiatric Exam Psychiatric exam: Normal Affect, Normal Mood - Skin Skin Exam: Dry, Warm Assessment and Plan - Assessment and Plan (Free Text) Assessment: Syncope Has had several episodes in the past. Alcohol likely contributed to patient's presentation on this encounter. History of implantable loop recorder- Patient states that this was last interrogated approx 2 months ago. May need to be interrogated again in light of recent event- however so it appears that alcohol played a direct role in patient's episode. Dilated Cardiomyopathy Likely secondary to chronic alcohol use. Patient had cardiac cath 06/2017 which confirmed these findings. Per prior records, patient has had a MUGA scan performed showing EF of 65%. Will need to verify these records as this is not currently available in the medical chart. Last echo performed 06/2017. Repeat echo 05/2018 shows EF of approx 65% . If patient is able to abstain from alcohol, he can prevent onset of adverse side effects. Will monitor HTN Losartan 25 mg PO daily Monitor Alcohol abuse Cessation counseling On Librium On multivitamins, folic acid and thiamine Prophylactic Measure GI Prophylaxis SCDs <Louis Dillard - Last Filed: 06/02/18 21:56> Objective - Vital Signs/Intake and Output Vital Signs (last 24 hours): Temp Pulse Resp BP Pulse Ox 97.9 F 64 18 121/80 98 06/02/18 17:17 06/02/18 18:00 06/02/18 17:17 06/02/18 17:17 06/02/18 17:17 Intake and Output: 06/02/18 06/03/18 18:59 06:59 Intake Total 450 Output Total 0 Balance 450 - Medications Medications: Current Medications Aspirin (Aspirin) 325 mg PO DAILY [facility] Last Admin: 06/02/18 09:31 Dose: 325 mg Chlordiazepoxide (Librium) 25 mg PO Q12H [facility] PRN Reason: Taper Stop: 06/04/18 17:36 Last Admin: 06/02/18 20:23 Dose: 25 mg Folic Acid (Folic Acid) 1 mg PO DAILY [facility] Last Admin: 06/02/18 09:32 Dose: 1 mg Ketorolac Tromethamine (Toradol) 30 mg IVP Q6H PRN PRN Reason: Pain, moderate (4-7) Last Admin: 06/02/18 21:24 Dose: 30 mg Losartan Potassium (Cozaar) 25 mg PO DAILY [facility] Last Admin: 06/02/18 09:32 Dose: 25 mg Magnesium Oxide (Mag-Ox) 400 mg PO DAILY [facility] Last Admin: 06/02/18 09:32 Dose: 400 mg Multivitamins (Hexavitamin) 1 tab PO DAILY [facility] Last Admin: 06/02/18 09:32 Dose: 1 tab Pantoprazole Sodium (Protonix Ec Tab) 40 mg PO DAILY [facility] Last Admin: 06/02/18 09:32 Dose: 40 mg Thiamine HCl (Vitamin B1 Tab) 100 mg PO DAILY [facility] Last Admin: 06/02/18 09:32 Dose: 100 mg Trazodone HCl (Desyrel) 50 mg PO HS PRN PRN Reason: Insomnia Last Admin: 06/02/18 21:24 Dose: 50 mg - Labs Labs: 06/02/18 09:59 06/02/18 09:59 PT 11.9 SECONDS (9.7-12.2) 05/31/18 15:00 INR 1.1 05/31/18 15:00 APTT 27 SECONDS (21-34) 05/31/18 15:00 Assessment and Plan - Assessment and Plan (Free Text) Assessment: Patient seen and evaluated personally by me. Plan of care d/w the durable medical equipment technician and as documented
--- NOTE | 2018-06-02 08:09 | CARD ---
APPROVED REPORT Date of service: 06/01/2018 EXAM: Two-dimensional and M-mode echocardiogram with Doppler and color Doppler. Other Information Quality : GoodRhythm : INDICATION Cardiomyopathy Chest Pain Syncope 2D DIMENSIONS IVSd0.9 (0.7-1.1cm)LVDd4.7 (3.9-5.9cm) PWd1.1 (0.7-1.1cm)LVDs3.2 (2.5-4.0cm) FS (%) 32.5 %LVEF (%)60.8 (>50%) M-Mode DIMENSIONS Left Atrium (MM)4.23 (2.5-4.0cm)IVSd0.90 (0.7-1.1cm) Aortic Root3.44 (2.2-3.7cm)LVDd5.49 (4.0-5.6cm) Aortic Cusp Exc.2.54 (1.5-2.0cm)PWd0.90 (0.7-1.1cm) FS (%) 29 %LVDs3.89 (2.0-3.8cm) LVEF (%)55 (>50%) Mitral Valve MV E Xtrabkqs62.1cm/sMV A Kppgodwf21.5cm/sE/A ratio0.5 TDI E/Lateral E'0.0E/Medial E'0.0 Tricuspid Valve TR Peak [id number]/sTR Peak [id number] <Conclusion> Left ventricle: thickness: normal; size: normal; overall ejection fraction: 65%: diastolic filling pressures: normal Mitral valve: annulus: normal: leaflets: normal: excursion: normal; no significant trans-mitral gradient: no significant incompetence: left atrium: normal Aortic valve: leaflets: normal: excursion: normal; no significant trans-aortic gradient: No significant incompetence: aortic root: normal Right sided Structures: Pulmonary valve: normal; no significant incompetence; Tricuspid valve: normal; no significant incompetence: Intra-cardiac hemodynamics: pulmonary systolic pressures: normal; central venous pressures: normal No pericardial effusion
[2018-06-02] MEDS: Pantoprazole 40 mg EC Tab PO SCH (09:32)
[2018-06-02] MEDS: Multiple Vitamins Tab PO SCH (09:32)
[2018-06-02] MEDS: Magnesium Oxide 400 mg Tab UD PO SCH (09:32)
[2018-06-02 10:12] LABS: EOS # 0.2 K/uL (0.0-0.7); EOS % 5.9 % (0.0-4.0); LYMPH # 0.7 K/uL (1.0-4.3); LYMPH % 24.3 % (20.0-40.0); MEAN CELL VOLUME 94.4 fL (80.0-94.0); MEAN CORPUSCULAR HEMOGLOBIN 31.6 pg (27.0-31.0); MEAN CORPUSCULAR HGB CONC 33.5 g/dL (33.0-37.0); MEAN PLATELET VOLUME 9.1 fL (7.2-11.7); MONO # 0.2 K/uL (0.0-0.8); MONO % 6.9 % (0.0-10.0); NEUT # 1.7 K/uL (1.8-7.0); NEUT % 61.9 % (50.0-75.0); NRBC % 0.1 % (0.0-2.0); RBC 3.16 Mil/uL (4.40-5.90); RED CELL DISTRIBUTION WIDTH 14.9 % (11.5-14.5); WHITE BLOOD COUNT 2.7 K/uL (4.8-10.8)
[2018-06-02 10:50] LABS: ALB/GLOB RATIO 1.4 (1.0-2.1); ALBUMIN 4.2 g/dL (3.5-5.0); ALT/SGPT 29 U/L (21-72); AST/SGOT 53 U/L (17-59); BLOOD UREA NITROGEN 14 mg/dL (9-20); CALCIUM 9.2 mg/dl (8.6-10.4); GFR NON-AFRICAN AMERICAN 56
--- NOTE | 2018-06-02 11:54 | CP.PCM.PN ---
Subjective - Date & Time of Evaluation Date of Evaluation: 06/02/18 Time of Evaluation: 09:50 - Subjective Subjective: Medicine progress note for Dr. Silveira's service Patient seen and examined. Patient sitting comfortably in chair at bedside. Patient reports he is feeling better. He states he wants to quit drinking but has tried AA in the past and it has not been helpful. Patient reports feeling unsteady on his feet but denies other complaints. Objective - Vital Signs/Intake and Output Vital Signs (last 24 hours): Temp Pulse Resp BP Pulse Ox 98.4 F 80 14 137/88 98 06/02/18 08:00 06/02/18 10:00 06/02/18 10:00 06/02/18 09:57 06/02/18 10:00 Intake and Output: 06/02/18 06/02/18 06:59 18:59 Intake Total 450 Output Total 0 Balance 450 - Medications Medications: Current Medications Aspirin (Aspirin) 325 mg PO DAILY [facility] Last Admin: 06/02/18 09:31 Dose: 325 mg Chlordiazepoxide (Librium) 25 mg PO Q8 [facility] Last Admin: 06/02/18 07:33 Dose: 25 mg Folic Acid (Folic Acid) 1 mg PO DAILY [facility] Last Admin: 06/02/18 09:32 Dose: 1 mg Folic Acid 1 mg/ Thiamine HCl 100 mg/ Multivitamins/Vitamin C 10 ml/ Dextrose 1 ,011.2 mls @ 50 mls/hr IV .[id number] [facility] Last Admin: 06/01/18 18:17 Dose: 50 mls/hr Ketorolac Tromethamine (Toradol) 30 mg IVP Q6 PRN PRN Reason: Pain, moderate (4-7) Last Admin: 06/02/18 07:47 Dose: 30 mg Losartan Potassium (Cozaar) 25 mg PO DAILY [facility] Last Admin: 06/02/18 09:32 Dose: 25 mg Magnesium Oxide (Mag-Ox) 400 mg PO DAILY [facility] Last Admin: 06/02/18 09:32 Dose: 400 mg Multivitamins (Hexavitamin) 1 tab PO DAILY [facility] Last Admin: 06/02/18 09:32 Dose: 1 tab Pantoprazole Sodium (Protonix Ec Tab) 40 mg PO DAILY [facility] Last Admin: 06/02/18 09:32 Dose: 40 mg Thiamine HCl (Vitamin B1 Tab) 100 mg PO DAILY [facility] Last Admin: 06/02/18 09:32 Dose: 100 mg Trazodone HCl (Desyrel) 50 mg PO HS PRN PRN Reason: Insomnia Last Admin: 06/01/18 21:30 Dose: 50 mg - Labs Labs: 06/02/18 09:59 06/02/18 09:59 PT 11.9 SECONDS (9.7-12.2) 05/31/18 15:00 INR 1.1 05/31/18 15:00 APTT 27 SECONDS (21-34) 05/31/18 15:00 - Constitutional Appears: No Acute Distress, Chronically Ill - Head Exam Head Exam: ATRAUMATIC, NORMOCEPHALIC - Eye Exam Eye Exam: EOMI - ENT Exam ENT Exam: Mucous Membranes Moist - Respiratory Exam Respiratory Exam: Clear to Ausculation Bilateral, NORMAL BREATHING PATTERN - Cardiovascular Exam Cardiovascular Exam: +S1, +S2 - GI/Abdominal Exam GI & Abdominal Exam: Soft, Normal Bowel Sounds - Extremities Exam Extremities Exam: Normal Inspection - Neurological Exam Neurological Exam: Alert, Awake Additional comments: mild tremor in hands, no asterixis - Skin Skin Exam: Warm Assessment and Plan - Assessment and Plan (Free Text) Assessment: Syncope Patient with multiple episodes of syncope- per patient, alcohol-related History of implantable loop recorder Dr. Dillard, cardiology, consulted- help appreciated- will check repeat echo Dr. Koch, neurology, consulted- help appreciated Anemia possibly due to chronic alcohol abuse hemoglobin increased from 8.9 to 10.0 rectal exam per GI with soft brown stool without palpable lesions, no evidence of overt bleeding noted patient had EGD/ colonoscopy in 02/2018 that showed gastritis, hiatal hernia, esophagitis HCV patient will need outpatient GI follow up for treatment Dilated Cardiomyopathy Likely secondary to chronic alcohol use Patient had cardiac cath 06/2017 which confirmed these findings. Per prior records, patient has had a MUGA scan performed showing EF of 65%. Will need to verify these records as this is not currently available in the medical chart. Last echo performed 06/2017 showed EF 30-35% with mild concentric LVH, global hypokinesis of LV, moderately dilated left atrium, mitral regurgitation is mild , mild tricuspid regurgitation. repeat echo 06/01/18: EF 65% with normal cardiac function HTN Losartan 25 mg PO daily continue to monitor Electrolyte Abnormality continue magnesium oxide 400mg PO daily Monitor and replete as necessary Alcohol abuse Cessation counseling Continue Librium 25mg PO q8h On multivitamins, folic acid and thiamine, banana bag Prophylactic Measure GI Prophylaxis with protonix 40mg PO daily SCDs PT eval All medical management as per Dr. Silveira
[2018-06-02] MEDS: Folic Acid 1 MG, Thiamine 100 MG, Multivitamin (MVI) 10 ML in Dextrose 5% In Water 1,00... IV SCH (13:42)
--- NOTE | 2018-06-02 16:16 | CARD ---
APPROVED REPORT Date of service: 05/31/2018 EKG Measurement Heart [id number] [place] [id number] <Conclusion> Normal sinus rhythm Nonspecific T wave abnormality Prolonged QT Abnormal ECG
--- NOTE | 2018-06-02 16:49 | CARD ---
APPROVED REPORT Date of service: 06/01/2018 EKG Measurement Heart [id number] [id number] <Conclusion> Sinus rhythm with 1st degree AV block Prolonged QT Abnormal ECG
--- NOTE | 2018-06-02 16:49 | CARD ---
APPROVED REPORT Date of service: 06/01/2018 EKG Measurement Heart [id number] [place] 204P31 [id number] <Conclusion> Sinus rhythm with frequent premature ventricular complexes Prolonged QT Abnormal ECG
--- NOTE | 2018-06-02 21:51 | CP.PCM.PN ---
Subjective - Date & Time of Evaluation Date of Evaluation: 06/02/18 Time of Evaluation: 10:15 - Subjective Subjective: clinically same Objective - Vital Signs/Intake and Output Vital Signs (last 24 hours): Temp Pulse Resp BP Pulse Ox 97.9 F 64 18 121/80 98 06/02/18 17:17 06/02/18 18:00 06/02/18 17:17 06/02/18 17:17 06/02/18 17:17 Intake and Output: 06/02/18 06/03/18 18:59 06:59 Intake Total 450 Output Total 0 Balance 450 - Medications Medications: Current Medications Aspirin (Aspirin) 325 mg PO DAILY [facility] Last Admin: 06/02/18 09:31 Dose: 325 mg Chlordiazepoxide (Librium) 25 mg PO Q12H [facility] PRN Reason: Taper Stop: 06/04/18 17:36 Last Admin: 06/02/18 20:23 Dose: 25 mg Folic Acid (Folic Acid) 1 mg PO DAILY [facility] Last Admin: 06/02/18 09:32 Dose: 1 mg Ketorolac Tromethamine (Toradol) 30 mg IVP Q6H PRN PRN Reason: Pain, moderate (4-7) Last Admin: 06/02/18 21:24 Dose: 30 mg Losartan Potassium (Cozaar) 25 mg PO DAILY [facility] Last Admin: 06/02/18 09:32 Dose: 25 mg Magnesium Oxide (Mag-Ox) 400 mg PO DAILY [facility] Last Admin: 06/02/18 09:32 Dose: 400 mg Multivitamins (Hexavitamin) 1 tab PO DAILY [facility] Last Admin: 06/02/18 09:32 Dose: 1 tab Pantoprazole Sodium (Protonix Ec Tab) 40 mg PO DAILY [facility] Last Admin: 06/02/18 09:32 Dose: 40 mg Thiamine HCl (Vitamin B1 Tab) 100 mg PO DAILY [facility] Last Admin: 06/02/18 09:32 Dose: 100 mg Trazodone HCl (Desyrel) 50 mg PO HS PRN PRN Reason: Insomnia Last Admin: 06/02/18 21:24 Dose: 50 mg - Labs Labs: 06/02/18 09:59 06/02/18 09:59 PT 11.9 SECONDS (9.7-12.2) 05/31/18 15:00 INR 1.1 05/31/18 15:00 APTT 27 SECONDS (21-34) 05/31/18 15:00 - Constitutional Appears: Well - Head Exam Head Exam: ATRAUMATIC, NORMAL INSPECTION, NORMOCEPHALIC - Eye Exam Eye Exam: EOMI, Normal appearance, PERRL Pupil Exam: NORMAL ACCOMODATION, PERRL - ENT Exam ENT Exam: Mucous Membranes Moist, Normal Exam - Neck Exam Neck Exam: Full ROM, Normal Inspection. absent: Lymphadenopathy - Respiratory Exam Respiratory Exam: Decreased Breath Sounds - Cardiovascular Exam Cardiovascular Exam: REGULAR RHYTHM, +S1, +S2 - GI/Abdominal Exam GI & Abdominal Exam: Soft, Diminished Bowel Sounds - Rectal Exam Rectal Exam: Deferred
[2018-06-03 02:06] VITALS: RESP 20
[2018-06-03 07:25] LABS: EOS # 0.1 K/uL (0.0-0.7); HEMOGLOBIN 9.4 g/dL (12.0-18.0); MONO # 0.3 K/uL (0.0-0.8); WHITE BLOOD COUNT 3.1 K/uL (4.8-10.8)
[2018-06-03 07:30] LABS: ALB/GLOB RATIO 1.2 (1.0-2.1); ALBUMIN 3.5 g/dL (3.5-5.0); ALT/SGPT 27 U/L (21-72); AST/SGOT 44 U/L (17-59); BLOOD UREA NITROGEN 15 mg/dL (9-20); CALCIUM 8.9 mg/dl (8.6-10.4); GFR NON-AFRICAN AMERICAN 51
--- NOTE | 2018-06-03 07:40 | CP.PCM.PN ---
Subjective - Date & Time of Evaluation Date of Evaluation: 06/03/18 Time of Evaluation: 08:00 - Subjective Subjective: Medicine progress note for Dr. Silveira's service Patient seen and examined at bedside in the AM. Patient sitting comfortably in bed. Patient reports he is feeling better but states he still has a slight tremor. He states he continues to have watery diarrhea. He has had about 3 bowerl movements this morning. Patient reports feeling unsteady on his feet but denies other complaints. Objective - Vital Signs/Intake and Output Vital Signs (last 24 hours): Temp Pulse Resp BP Pulse Ox 98.1 F 71 20 147/96 H 99 06/03/18 00:00 06/03/18 01:00 06/03/18 00:00 06/03/18 00:00 06/03/18 00:00 Intake and Output: 06/03/18 06/03/18 06:59 18:59 Intake Total 300 Balance 300 - Medications Medications: Current Medications Aspirin (Aspirin) 325 mg PO DAILY [facility] Last Admin: 06/02/18 09:31 Dose: 325 mg Chlordiazepoxide (Librium) 25 mg PO Q12H [facility] PRN Reason: Taper Stop: 06/04/18 17:36 Last Admin: 06/03/18 05:09 Dose: 25 mg Folic Acid (Folic Acid) 1 mg PO DAILY [facility] Last Admin: 06/02/18 09:32 Dose: 1 mg Ketorolac Tromethamine (Toradol) 30 mg IVP Q6H PRN PRN Reason: Pain, moderate (4-7) Last Admin: 06/02/18 21:24 Dose: 30 mg Losartan Potassium (Cozaar) 25 mg PO DAILY [facility] Last Admin: 06/02/18 09:32 Dose: 25 mg Magnesium Oxide (Mag-Ox) 400 mg PO DAILY [facility] Last Admin: 06/02/18 09:32 Dose: 400 mg Multivitamins (Hexavitamin) 1 tab PO DAILY [facility] Last Admin: 06/02/18 09:32 Dose: 1 tab Pantoprazole Sodium (Protonix Ec Tab) 40 mg PO DAILY [facility] Last Admin: 06/02/18 09:32 Dose: 40 mg Thiamine HCl (Vitamin B1 Tab) 100 mg PO DAILY [facility] Last Admin: 06/02/18 09:32 Dose: 100 mg Trazodone HCl (Desyrel) 50 mg PO HS PRN PRN Reason: Insomnia Last Admin: 06/02/18 21:24 Dose: 50 mg - Labs Labs: 06/02/18 09:59 06/03/18 06:27 PT 11.9 SECONDS (9.7-12.2) 05/31/18 15:00 INR 1.1 05/31/18 15:00 APTT 27 SECONDS (21-34) 05/31/18 15:00 - Constitutional Appears: No Acute Distress - Head Exam Head Exam: ATRAUMATIC, NORMAL INSPECTION - Eye Exam Eye Exam: EOMI, Normal appearance - ENT Exam ENT Exam: Mucous Membranes Moist - Respiratory Exam Respiratory Exam: Clear to Ausculation Bilateral, NORMAL BREATHING PATTERN - Cardiovascular Exam Cardiovascular Exam: REGULAR RHYTHM, +S1, +S2 - GI/Abdominal Exam GI & Abdominal Exam: Soft, Normal Bowel Sounds. absent: Tenderness - Extremities Exam Additional comments: mild tremor in hands, no asterixis - Neurological Exam Neurological Exam: Alert, Awake - Psychiatric Exam Psychiatric exam: Normal Affect - Skin Skin Exam: Warm Assessment and Plan - Assessment and Plan (Free Text) Assessment: Syncope Patient with multiple episodes of syncope- per patient, alcohol-related History of implantable loop recorder Dr. Dillard, cardiology, consulted- help appreciated- will check repeat echo Dr. Koch, neurology, consulted- help appreciated Anemia secondary to chronic alcohol abuse hemoglobin 9.01/05 rectal exam per GI with soft brown stool without palpable lesions, no evidence of overt bleeding noted patient had EGD/ colonoscopy in 02/2018 that showed gastritis, hiatal hernia, esophagitis HCV patient will need outpatient GI follow up for treatment Dilated Cardiomyopathy Likely secondary to chronic alcohol use Patient had cardiac cath 06/2017 which confirmed these findings. Per prior records, patient has had a MUGA scan performed showing EF of 65%. Will need to verify these records as this is not currently available in the medical chart. Last echo performed 06/2017 showed EF 30-35% with mild concentric LVH, global hypokinesis of LV, moderately dilated left atrium, mitral regurgitation is mild , mild tricuspid regurgitation. repeat echo 06/01/18: EF 65% with normal cardiac function HTN Losartan 25 mg PO daily continue to monitor Electrolyte Abnormality continue magnesium oxide 400mg PO daily Monitor and replete as necessary Alcohol abuse Cessation counseling Continue Librium 25mg PO q8h On multivitamins, folic acid and thiamine, banana bag Prophylactic Measure GI Prophylaxis with protonix 40mg PO daily SCDs Disposition: discharge possibly 06/04/18 to subacute rehab All medical management as per Dr. Silveira
[2018-06-03 07:48] LABS: BASO % 0.6 % (0.0-2.0); EOS % 3.8 % (0.0-4.0); LYMPH # 0.8 K/uL (1.0-4.3); LYMPH % 24.1 % (20.0-40.0); MEAN CORPUSCULAR HEMOGLOBIN 31.6 pg (27.0-31.0); MEAN CORPUSCULAR HGB CONC 33.7 g/dL (33.0-37.0); MEAN PLATELET VOLUME 9.9 fL (7.2-11.7); MONO % 8.9 % (0.0-10.0); NEUT % 62.6 % (50.0-75.0); NRBC % 0.4 % (0.0-2.0); RBC 2.98 Mil/uL (4.40-5.90); RED CELL DISTRIBUTION WIDTH 14.6 % (11.5-14.5)
[2018-06-03] MEDS: Pantoprazole 40 mg EC Tab PO SCH (09:18)
[2018-06-03] MEDS: Multiple Vitamins Tab PO SCH (09:21)
[2018-06-03] MEDS: Magnesium Oxide 400 mg Tab UD PO SCH (09:21)
[2018-06-03] MEDS ORDERED: Magnesium Sulfate 1 gm in D5W 1 GM/100 ML BAG IVPB ONE (10:23)
[2018-06-03] MEDS ORDERED: Magnesium Sulfate 1 gm in D5W 1 GM/100 ML BAG IVPB SCH (10:30)
--- NOTE | 2018-06-03 13:10 | PN ---
DATE: 06/03/2018 TIME OF EVALUATION: 07:10 a.m. NEUROLOGICAL PROBLEM: ETOH related blackouts. No clear evidence of seizures. PHYSICAL EXAMINATION: GENERAL: The patient is awake, alert, and complains of REM sleep due to the IV pump disturbances. VITAL SIGNS: Blood pressure 146/96, mean arterial pressure of 113, respiratory rate 18, pulse rate 80 and regular, temperature 98.1. No hemoglobin drop. Hemoglobin is stable with the current blood test. His examination also decreased. No asterixis. 1. His examination is unchanged to compare with my previous examination. The patient does not need any antiepileptic drugs at present. 2. Aspirin should be cleared by scholastic aptitude test grader whether to continued or not because of significant gastritis and duodenitis in the previous studies and workup. 3. Alcohol abstinence, continue Librium tapering dose and vitamin D1 supplements. Signing off from followup. The patient is neurologically stable to be discharged home with social service evaluation for alcohol abstinence. Christiano Koch MD
--- NOTE | 2018-06-03 13:55 | CP.PCM.PN ---
<MaciejLibertywai E - Last Filed: 06/03/18 14:09> Subjective - Date & Time of Evaluation Date of Evaluation: 06/03/18 Time of Evaluation: 08:40 - Subjective Subjective: Cardiology progress note ( Dr. Dillard's service) Patient was seen and examined at bedside. Patient reports that he is doing well. Patient denies chest pain, palpitations, SOB, dizziness but does admit to loose stool/ diarrhea but denies abdominal pain, nausea, vomiting. Patient continues to tolerate diet. Objective - Vital Signs/Intake and Output Vital Signs (last 24 hours): Temp Pulse Resp BP Pulse Ox 98.0 F 72 20 116/91 H 100 06/03/18 08:00 06/03/18 09:20 06/03/18 08:00 06/03/18 09:20 06/03/18 08:00 Intake and Output: 06/03/18 06/03/18 06:59 18:59 Intake Total 300 Balance 300 - Medications Medications: Current Medications Aspirin (Aspirin) 325 mg PO DAILY [facility] Last Admin: 06/03/18 09:22 Dose: 325 mg Chlordiazepoxide (Librium) 25 mg PO Q12H [facility] PRN Reason: Taper Stop: 06/04/18 17:36 Last Admin: 06/03/18 05:09 Dose: 25 mg Folic Acid (Folic Acid) 1 mg PO DAILY [facility] Last Admin: 06/03/18 09:22 Dose: 1 mg Ketorolac Tromethamine (Toradol) 30 mg IVP Q6H PRN PRN Reason: Pain, moderate (4-7) Last Admin: 06/03/18 09:22 Dose: 30 mg Losartan Potassium (Cozaar) 25 mg PO DAILY [facility] Last Admin: 06/03/18 09:21 Dose: 25 mg Magnesium Oxide (Mag-Ox) 400 mg PO DAILY [facility] Last Admin: 06/03/18 09:21 Dose: 400 mg Multivitamins (Hexavitamin) 1 tab PO DAILY [facility] Last Admin: 06/03/18 09:21 Dose: 1 tab Pantoprazole Sodium (Protonix Ec Tab) 40 mg PO DAILY [facility] Last Admin: 06/03/18 09:18 Dose: 40 mg Thiamine HCl (Vitamin B1 Tab) 100 mg PO DAILY [facility] Last Admin: 06/03/18 09:21 Dose: 100 mg Trazodone HCl (Desyrel) 50 mg PO HS PRN PRN Reason: Insomnia Last Admin: 06/02/18 21:24 Dose: 50 mg - Labs Labs: 06/03/18 06:27 06/03/18 06:27 PT 11.9 SECONDS (9.7-12.2) 05/31/18 15:00 INR 1.1 05/31/18 15:00 APTT 27 SECONDS (21-34) 05/31/18 15:00 - Constitutional Appears: Non-toxic, No Acute Distress - Head Exam Head Exam: ATRAUMATIC - Eye Exam Eye Exam: EOMI - ENT Exam ENT Exam: Mucous Membranes Moist - Respiratory Exam Respiratory Exam: NORMAL BREATHING PATTERN - Cardiovascular Exam Cardiovascular Exam: REGULAR RHYTHM - GI/Abdominal Exam GI & Abdominal Exam: Soft, Normal Bowel Sounds. absent: Rigid, Tenderness - Extremities Exam Extremities Exam: Normal Inspection. absent: Pedal Edema - Neurological Exam Neurological Exam: Alert, Awake, Oriented x3 - Psychiatric Exam Psychiatric exam: Normal Affect - Skin Skin Exam: Normal Color Assessment and Plan (1) Syncope Assessment & Plan: Possibly secondary to alcohol abuse Known of several episodes in the past History of implantable loop recorder- Patient states that this was last interrogated approx 2 months ago. May need to be interrogated again in light of recent event- however so it appears that alcohol played a direct role in patient's episode. Status: Acute (2) Dilated cardiomyopathy secondary to alcohol Assessment & Plan: Likely secondary to chronic alcohol use Per prior records, patient has had a MUGA scan performed showing EF of 65%. Will need to verify these records as this is not currently available in the medical chart. 07/19/17, Cardiac catherization: Dilated cardiomyopathy with EF 20 to 25%. Patent coronaries Echocardiogram 06/2017: EF 30-35% with mild concentric LVH, global hypokinesis of LV, moderately dilated left atrium, mitral regurgitation is mild, mild tricuspid regurgitation. repeat echo 06/01/18: EF 65% with normal cardiac function. Please refer to the EMR for complete impression Status: Acute (3) Hypertension Assessment & Plan: Cozaar 25mg PO daily Continue to monitor with vital sign Q4H Status: Acute (4) Hepatitis C antibody test positive Assessment & Plan: Will need outpatient follow up for treatment Status: Acute (5) Alcohol abuse Assessment & Plan: Counselled on alcohol cessation On Librium On multivitamins, folic acid and thiamine Status: Acute (6) Prophylactic measure Assessment & Plan: GI: Protonix 40mg PO daily DVT: SCDs No further cardiac workup. Thank you for the consultation. Please re-consult as needed All plans and management discussed with Dr. Dillard Status: Acute <Louis Dillard - Last Filed: 06/03/18 22:44> Objective - Vital Signs/Intake and Output Vital Signs (last 24 hours): Temp Pulse Resp BP Pulse Ox 98.1 F 90 20 128/88 97 06/03/18 15:30 06/03/18 16:00 06/03/18 15:30 06/03/18 15:30 06/03/18 15:30 - Medications Medications: Current Medications Aspirin (Aspirin) 325 mg PO DAILY [facility] Last Admin: 06/03/18 09:22 Dose: 325 mg Chlordiazepoxide (Librium) 25 mg PO DAILY [facility] PRN Reason: Taper Stop: 06/04/18 17:36 Last Admin: 06/03/18 05:09 Dose: 25 mg Folic Acid (Folic Acid) 1 mg PO DAILY [facility] Last Admin: 06/03/18 09:22 Dose: 1 mg Ketorolac Tromethamine (Toradol) 30 mg IVP Q6H PRN PRN Reason: Pain, moderate (4-7) Last Admin: 06/03/18 16:11 Dose: 30 mg Losartan Potassium (Cozaar) 25 mg PO DAILY [facility] Last Admin: 06/03/18 09:21 Dose: 25 mg Magnesium Oxide (Mag-Ox) 400 mg PO DAILY [facility] Last Admin: 06/03/18 09:21 Dose: 400 mg Multivitamins (Hexavitamin) 1 tab PO DAILY [facility] Last Admin: 06/03/18 09:21 Dose: 1 tab Pantoprazole Sodium (Protonix Ec Tab) 40 mg PO DAILY [facility] Last Admin: 06/03/18 09:18 Dose: 40 mg Thiamine HCl (Vitamin B1 Tab) 100 mg PO DAILY [facility] Last Admin: 06/03/18 09:21 Dose: 100 mg Trazodone HCl (Desyrel) 50 mg PO HS PRN PRN Reason: Insomnia Last Admin: 06/02/18 21:24 Dose: 50 mg - Labs Labs: 06/03/18 06:27 06/03/18 06:27 PT 11.9 SECONDS (9.7-12.2) 05/31/18 15:00 INR 1.1 05/31/18 15:00 APTT 27 SECONDS (21-34) 05/31/18 15:00 Assessment and Plan - Assessment and Plan (Free Text) Assessment: Patient seen and evaluated personally by me Plan of care d/w the resident and as documented
--- NOTE | 2018-06-03 15:37 | CP.PCM.PN ---
Subjective - Date & Time of Evaluation Date of Evaluation: 06/03/18 Time of Evaluation: 09:30 Objective - Vital Signs/Intake and Output Vital Signs (last 24 hours): Temp Pulse Resp BP Pulse Ox 98.0 F 72 20 116/91 H 100 06/03/18 08:00 06/03/18 09:20 06/03/18 08:00 06/03/18 09:20 06/03/18 08:00 Intake and Output: 06/03/18 06/03/18 06:59 18:59 Intake Total 300 Balance 300 - Medications Medications: Current Medications Aspirin (Aspirin) 325 mg PO DAILY [facility] Last Admin: 06/03/18 09:22 Dose: 325 mg Chlordiazepoxide (Librium) 25 mg PO Q12H [facility] PRN Reason: Taper Stop: 06/04/18 17:36 Last Admin: 06/03/18 05:09 Dose: 25 mg Folic Acid (Folic Acid) 1 mg PO DAILY [facility] Last Admin: 06/03/18 09:22 Dose: 1 mg Ketorolac Tromethamine (Toradol) 30 mg IVP Q6H PRN PRN Reason: Pain, moderate (4-7) Last Admin: 06/03/18 09:22 Dose: 30 mg Losartan Potassium (Cozaar) 25 mg PO DAILY [facility] Last Admin: 06/03/18 09:21 Dose: 25 mg Magnesium Oxide (Mag-Ox) 400 mg PO DAILY [facility] Last Admin: 06/03/18 09:21 Dose: 400 mg Multivitamins (Hexavitamin) 1 tab PO DAILY [facility] Last Admin: 06/03/18 09:21 Dose: 1 tab Pantoprazole Sodium (Protonix Ec Tab) 40 mg PO DAILY [facility] Last Admin: 06/03/18 09:18 Dose: 40 mg Thiamine HCl (Vitamin B1 Tab) 100 mg PO DAILY [facility] Last Admin: 06/03/18 09:21 Dose: 100 mg Trazodone HCl (Desyrel) 50 mg PO HS PRN PRN Reason: Insomnia Last Admin: 06/02/18 21:24 Dose: 50 mg - Labs Labs: 06/03/18 06:27 06/03/18 06:27 PT 11.9 SECONDS (9.7-12.2) 05/31/18 15:00 INR 1.1 05/31/18 15:00 APTT 27 SECONDS (21-34) 05/31/18 15:00
[2018-06-04 07:38] LABS: BASO % 0.7 % (0.0-2.0); EOS # 0.1 K/uL (0.0-0.7); EOS % 3.7 % (0.0-4.0); HEMOGLOBIN 9.1 g/dL (12.0-18.0); LYMPH # 0.6 K/uL (1.0-4.3); LYMPH % 20.5 % (20.0-40.0); MEAN CELL VOLUME 92.3 fL (80.0-94.0); MEAN CORPUSCULAR HEMOGLOBIN 31.5 pg (27.0-31.0); MEAN CORPUSCULAR HGB CONC 34.1 g/dL (33.0-37.0); MEAN PLATELET VOLUME 9.9 fL (7.2-11.7); MONO # 0.3 K/uL (0.0-0.8); NEUT # 1.9 K/uL (1.8-7.0); NEUT % 65.1 % (50.0-75.0); NRBC % 0.1 % (0.0-2.0); RBC 2.88 Mil/uL (4.40-5.90)
[2018-06-04 07:51] LABS: ALB/GLOB RATIO 1.3 (1.0-2.1); ALBUMIN 3.6 g/dL (3.5-5.0); ALT/SGPT 34 U/L (21-72); AST/SGOT 57 U/L (17-59); BLOOD UREA NITROGEN 15 mg/dL (9-20); CALCIUM 9.1 mg/dl (8.6-10.4); GFR NON-AFRICAN AMERICAN 56
[2018-06-04 08:54] VITALS: TEMP 97.9; O2SAT 97
[2018-06-04] MEDS ORDERED: Magnesium Sulfate 1 gm in D5W 1 GM/100 ML BAG IVPB ONE (09:11)
[2018-06-04 09:26] VITALS: BP 113/77; PULSE 87
[2018-06-04] MEDS: Pantoprazole 40 mg EC Tab PO SCH (09:27)
[2018-06-04] MEDS: Multiple Vitamins Tab PO SCH (09:28)
[2018-06-04] MEDS: Magnesium Oxide 400 mg Tab UD PO SCH (09:28)
--- NOTE | 2018-06-04 09:51 | CP.PCM.PN ---
Subjective - Date & Time of Evaluation Date of Evaluation: 06/04/18 Time of Evaluation: 11:15 - Subjective Subjective: clinically same Objective - Vital Signs/Intake and Output Vital Signs (last 24 hours): Temp Pulse Resp BP Pulse Ox 97.9 F 87 20 113/77 97 06/04/18 07:00 06/04/18 09:26 06/04/18 07:00 06/04/18 09:26 06/04/18 07:00 Intake and Output: 06/04/18 06/04/18 06:59 18:59 Intake Total 500 Balance 500 - Medications Medications: Current Medications Aspirin (Aspirin) 325 mg PO DAILY [facility] Last Admin: 06/04/18 09:28 Dose: 325 mg Chlordiazepoxide (Librium) 25 mg PO DAILY [facility] PRN Reason: Taper Stop: 06/04/18 17:36 Last Admin: 06/04/18 09:27 Dose: 25 mg Folic Acid (Folic Acid) 1 mg PO DAILY [facility] Last Admin: 06/04/18 09:28 Dose: 1 mg Ketorolac Tromethamine (Toradol) 30 mg IVP Q6H PRN PRN Reason: Pain, moderate (4-7) Last Admin: 06/04/18 09:28 Dose: 30 mg Losartan Potassium (Cozaar) 25 mg PO DAILY [facility] Last Admin: 06/04/18 09:28 Dose: 25 mg Magnesium Oxide (Mag-Ox) 400 mg PO DAILY [facility] Last Admin: 06/04/18 09:28 Dose: 400 mg Multivitamins (Hexavitamin) 1 tab PO DAILY [facility] Last Admin: 06/04/18 09:28 Dose: 1 tab Pantoprazole Sodium (Protonix Ec Tab) 40 mg PO DAILY [facility] Last Admin: 06/04/18 09:27 Dose: 40 mg Thiamine HCl (Vitamin B1 Tab) 100 mg PO DAILY [facility] Last Admin: 06/04/18 09:28 Dose: 100 mg Trazodone HCl (Desyrel) 50 mg PO HS PRN PRN Reason: Insomnia Last Admin: 06/02/18 21:24 Dose: 50 mg - Labs Labs: 06/04/18 07:21 06/04/18 07:21 PT 11.9 SECONDS (9.7-12.2) 05/31/18 15:00 INR 1.1 05/31/18 15:00 APTT 27 SECONDS (21-34) 05/31/18 15:00 - Constitutional Appears: Well - Head Exam Head Exam: ATRAUMATIC, NORMAL INSPECTION, NORMOCEPHALIC - Eye Exam Eye Exam: EOMI, Normal appearance, PERRL Pupil Exam: NORMAL ACCOMODATION, PERRL - ENT Exam ENT Exam: Mucous Membranes Moist, Normal Exam - Neck Exam Neck Exam: Full ROM, Normal Inspection. absent: Lymphadenopathy - Respiratory Exam Respiratory Exam: Decreased Breath Sounds - Cardiovascular Exam Cardiovascular Exam: REGULAR RHYTHM, +S1, +S2 - GI/Abdominal Exam GI & Abdominal Exam: Soft, Diminished Bowel Sounds - Rectal Exam Rectal Exam: Deferred
--- NOTE | 2018-06-04 10:24 | CP.PCM.PN ---
Subjective - Date & Time of Evaluation Date of Evaluation: 06/04/18 Time of Evaluation: 10:20 - Subjective Subjective: PGY3 progress note for Dr. Bebeto Silveira Pt seen and examined at bedside. No acute events overnight. Pt is sitting comfortably in the room. Denies having any anxiety, tremors, agitation or hallucinations. Denies having any CP, SOB, abd pain, N/v/D/c. Objective - Vital Signs/Intake and Output Vital Signs (last 24 hours): Temp Pulse Resp BP Pulse Ox 97.9 F 87 20 113/77 97 06/04/18 07:00 06/04/18 09:26 06/04/18 07:00 06/04/18 09:26 06/04/18 07:00 Intake and Output: 06/04/18 06/04/18 06:59 18:59 Intake Total 500 Balance 500 - Medications Medications: Current Medications Aspirin (Aspirin) 325 mg PO DAILY [facility] Last Admin: 06/04/18 09:28 Dose: 325 mg Chlordiazepoxide (Librium) 25 mg PO DAILY [facility] PRN Reason: Taper Stop: 06/04/18 17:36 Last Admin: 06/04/18 09:27 Dose: 25 mg Folic Acid (Folic Acid) 1 mg PO DAILY [facility] Last Admin: 06/04/18 09:28 Dose: 1 mg Ketorolac Tromethamine (Toradol) 30 mg IVP Q6H PRN PRN Reason: Pain, moderate (4-7) Last Admin: 06/04/18 09:28 Dose: 30 mg Losartan Potassium (Cozaar) 25 mg PO DAILY [facility] Last Admin: 06/04/18 09:28 Dose: 25 mg Magnesium Oxide (Mag-Ox) 400 mg PO DAILY [facility] Last Admin: 06/04/18 09:28 Dose: 400 mg Multivitamins (Hexavitamin) 1 tab PO DAILY [facility] Last Admin: 06/04/18 09:28 Dose: 1 tab Pantoprazole Sodium (Protonix Ec Tab) 40 mg PO DAILY [facility] Last Admin: 06/04/18 09:27 Dose: 40 mg Thiamine HCl (Vitamin B1 Tab) 100 mg PO DAILY [facility] Last Admin: 06/04/18 09:28 Dose: 100 mg Trazodone HCl (Desyrel) 50 mg PO HS PRN PRN Reason: Insomnia Last Admin: 06/02/18 21:24 Dose: 50 mg - Labs Labs: 06/04/18 07:21 06/04/18 07:21 PT 11.9 SECONDS (9.7-12.2) 05/31/18 15:00 INR 1.1 05/31/18 15:00 APTT 27 SECONDS (21-34) 05/31/18 15:00 - Constitutional Appears: Non-toxic, No Acute Distress - Head Exam Head Exam: ATRAUMATIC, NORMOCEPHALIC - ENT Exam ENT Exam: Mucous Membranes Moist - Respiratory Exam Respiratory Exam: Clear to Ausculation Bilateral. absent: Accessory Muscle Use , Rales, Rhonchi, Wheezes, Respiratory Distress - Cardiovascular Exam Cardiovascular Exam: REGULAR RHYTHM, +S1, +S2 - GI/Abdominal Exam GI & Abdominal Exam: Soft, Normal Bowel Sounds. absent: Distended, Firm, Guarding, Rigid, Tenderness, Organomegaly - Neurological Exam Neurological Exam: Alert, Awake, Normal Gait, Oriented x3 Additional comments: patient asked to walk around and is able to do so without difficulty or lightheadedness - Psychiatric Exam Psychiatric exam: Normal Affect, Normal Mood - Skin Skin Exam: Dry, Intact, Normal Color, Warm Assessment and Plan - Assessment and Plan (Free Text) Assessment: Syncope Patient with multiple episodes of syncope- per patient, alcohol-related History of implantable loop recorder Dr. Dillard, cardiology, consulted- help appreciated- will check repeat echo Dr. Koch, neurology, consulted- help appreciated Anemia secondary to chronic alcohol abuse Stable H&H this am rectal exam per GI with soft brown stool without palpable lesions, no evidence of overt bleeding noted patient had EGD/ colonoscopy in 02/2018 that showed gastritis, hiatal hernia, esophagitis HCV patient will need outpatient GI follow up for treatment Dilated Cardiomyopathy Likely secondary to chronic alcohol use Patient had cardiac cath 06/2017 which confirmed these findings. Per prior records, patient has had a MUGA scan performed showing EF of 65%. Will need to verify these records as this is not currently available in the medical chart. Last echo performed 06/2017 showed EF 30-35% with mild concentric LVH, global hypokinesis of LV, moderately dilated left atrium, mitral regurgitation is mild , mild tricuspid regurgitation. repeat echo 06/01/18: EF 65% with normal cardiac function HTN Losartan 25 mg PO daily continue to monitor Electrolyte Abnormality continue magnesium oxide 400mg PO daily Monitor and replete as necessary Alcohol abuse Discussed risks of ETOH abuse and recommended cessation Finished librium taper 06/04 On multivitamins, folic acid and thiamine, Prophylactic Measure GI Prophylaxis with protonix 40mg PO daily SCDs Patient stable for discharge to detox facility at [facility] per Dr. Bebeto Silveira. Patient is to follow up with primary care doctor after discharge. Discussed the risks of alcohol abuse and recommended cessation. Patient is discharged with the following medications: Aspirin 81 mg 1 tab orally daily #30 tabs, Folic acid 1 mg 1 tab orally daily # 30 tabs, Thiamine 100 mg 1 tab orally daily #30 tabs, Multivitamin 1 tab orally daily #30, Magnesium Oxide 1 tab by mouth daily #30 tabs, Cozaar 25 mg 1 tab orally daily #30 tabs, Protonix 40 mg 1 tab orally daily #30 tabs. Please return to ED if symptoms worsen. All medical management as per Dr. Silveira
== END 2018-06-04 11:20 | disposition home or self-care (01) | DRG 141 ==
LOC: C.ER 14:24 → C.9E 16:32 → C.9I 22:21 → OBSVTOIN 06-02 13:51 → C.5S 06-02 17:15
PROVIDERS: ADMIT Internal Medicine Nephrology; ATTEND Internal Medicine Nephrology
DX: R55 Syncope and collapse (principal); I42.0 Dilated cardiomyopathy; I11.0 Hypertensive heart disease with heart failure; I50.9 Heart failure, unspecified; B18.2 Chronic viral hepatitis C; E11.42 Type 2 diabetes mellitus with diabetic polyneuropathy; F10.10 Alcohol abuse, uncomplicated; Y90.7 Blood alcohol level of 200-239 mg/100 ml; K20.9 Esophagitis, unspecified; K25.9 Gastric ulcer, unspecified as acute or chronic, without hemorrhage or perforation; K31.89 Other diseases of stomach and duodenum; K29.70 Gastritis, unspecified, without bleeding; K44.9 Diaphragmatic hernia without obstruction or gangrene; R07.9 Chest pain, unspecified; F32.9 Major depressive disorder, single episode, unspecified; F41.9 Anxiety disorder, unspecified; D64.9 Anemia, unspecified; Z80.8 Family history of malignant neoplasm of other organs or systems; Z79.82 Long term (current) use of aspirin; Z87.11 Personal history of peptic ulcer disease; Z87.891 Personal history of nicotine dependence

== ENCOUNTER 2018-11-05 10:06 | Emergency (ER) | payer MEDICAID, MEDICARE ==
[2018-11-05 10:06] VITALS: BMI 24.8
[2018-11-05 10:15] VITALS: BP 157/80; PULSE 63; RESP 20; TEMP 97.7; O2SAT 98
--- NOTE | 2018-11-05 11:00 | C.PDOC ---
History Of Present Illness 63 year old male, with no significant past medical history, presents to the ED for evaluation of nose bleed x3 since last night. 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 He blew his nose after work last night and saw blood on the tissue. The bleeding stopped immediately. Patient was cooking breakfast at work this morning and had two separate episodes of nose bleeds which spontaneously self resolved. Patient also reports diffuse itchiness to his skin. He denies fever, chills, pain, headache, dizziness, palpitations. Time Seen by Provider: 11/05/18 10:51 Chief Complaint (Nursing): ENT Problem History Per: Patient History/Exam Limitations: None Onset/Duration Of Symptoms: Hrs Current Symptoms Are (Timing): Better Past Medical History Reviewed: Historical Data, Nursing Documentation, Vital Signs Vital Signs: Last Vital Signs Temp 97.7 F 11/05/18 10:14 Pulse 63 11/05/18 10:14 Resp 20 11/05/18 10:14 BP 157/80 H 11/05/18 10:14 Pulse Ox 98 11/05/18 10:14 - Medical History PMH: Anemia, Anxiety, Arthritis, CHF, Depression, Gastritis, Gastrointestinal Ulcer (PEPTIC), HTN, Pancreatitis, Peripheral Edema Denies: HIV, Kidney Stones, Chronic Kidney Disease, Seizures, Sexually Transmitted Disease Surgical History: No Surg Hx - [facility] ALCOHOL DETOXIFICATION (05/03/13) DETOXIFICATION SERVICES FOR SUBSTANCE ABUSE TREATMENT (05/15/18) EXCISION OF DESCENDING COLON, ENDO, DIAGN (03/16/18) EXCISION OF STOMACH, ENDO, DIAGN (03/16/18) EXTIRPATION OF MATTER FROM LARGE INTESTINE, ENDO (01/09/17) FLUOROSCOPY OF LEFT HEART USING LOW OSMOLAR CONTRAST (07/13/17) FLUOROSCOPY OF MULT COR ART USING L OSM CONTRAST (07/13/17) GROUP VETERANS' COORDINATOR FOR SUBSTANCE ABUSE TREATMENT, PSYCHOEDUCATION (05/15/18) GROUP VETERANS' COORDINATOR FOR SUBSTANCE ABUSE, COGNITIVE BEHAVIORAL (05/15/18) GROUP PSYCHOTHERAPY (01/24/16) INDIV PSYCHOTHERAPY FOR SUBSTANCE ABUSE TREATMENT, SUPPORT (05/15/18) INDIV PSYCHOTHERAPY FOR SUBSTANCE ABUSE, COGNITIV BEHAVIORAL (05/15/18) INDIV PSYCHOTHERAPY FOR SUBSTANCE ABUSE, PSYCHOEDUCATION (05/15/18) INSERT OF MONITOR DEV INTO CHEST SUBCU/FASCIA, OPEN APPROACH (12/18/16) INSPECTION OF UPPER INTESTINAL TRACT, ENDO (03/16/18) MEASURE OF ARTERIAL PRESSURE, PERIPHERAL, TANK BUILDER HELPER APPROACH (12/18/16) MEASURE OF CARDIAC SAMPL & PRESSURE, L HEART, PERC APPROACH (07/13/17) MEASUREMENT OF CARDIAC RHYTHM, EXTERNAL APPROACH (12/18/16) TRANSFUSE NONAUT RED BLOOD CELLS IN PERIPH ART, PERC (01/09/17) TRANSFUSE NONAUT RED BLOOD CELLS IN PERIPH VEIN, PERC (03/16/18) Family History: States: Unknown Family Hx - Social History Hx Tobacco Use: No (quit 2 months now) Hx Alcohol Use: Yes (1/2 pint vodka/day) Hx Substance Use: Yes - Immunization History Hx Tetanus Toxoid Vaccination: Yes Hx Influenza Vaccination: Yes Hx Pneumococcal Vaccination: No Review Of Systems Constitutional: Negative for: Fever, Chills ENT: Positive for: Other (epistaxis ) Cardiovascular: Negative for: Palpitations Neurological: Negative for: Headache, Dizziness Physical Exam - Physical Exam Appears: Non-toxic, No Acute Distress Skin: Normal Color, Warm, Dry, Other (dry skin noted ) Head: Atraumatic, Normacephalic Eye(s): bilateral: Normal Inspection Nose: No Epistaxis (active ), Other (dry blood to nares a) Oral Mucosa: Moist Throat: Normal, No Erythema, No Exudate Neck: Normal ROM, Supple Chest: Symmetrical, No Deformity, No Tenderness Cardiovascular: Rhythm Regular, No Murmur Respiratory: Normal Breath Sounds, No Rales, No Rhonchi, No Wheezing Extremity: Normal ROM, Capillary Refill (less than 2 seconds ) Neurological/Psych: Oriented x3, Normal Speech, Normal Cognition ED Course And Treatment O2 Sat by Pulse Oximetry: 98 (on RA) Pulse Ox Interpretation: Normal Medical Decision Making Medical Decision Making: Progress: On reassessment, patient is resting comfortably, with no active bleeding at this time, and is stable for discharge. Patient will be prescribed nasal saline for his nose and aquaphor for his dry skin. Advised to follow up with his PMD, Dr. Bebeto Silveira, within 1-2 days for further evaluation. Patient understands to return to the ED if symptoms return or worsen. Disposition Counseled Patient/Family Regarding: Diagnosis, Need For Followup, Rx Given - Disposition Referrals: Pablo Silveira MD [Staff Provider] - Disposition: HOME/ ROUTINE Disposition Time: 10:57 Condition: STABLE Prescriptions: Petrolatum,White [Aquaphor] 1 appl TP TID #1 tube Forms: [facility] (Turkmen) - POA Present On Arrival: None - Clinical Impression Clinical Impression: Epistaxis, History of skin pruritus - Scribe Statement The provider has reviewed the documentation as recorded by the Scribe Provider Attestation: All medical record entries made by the Scribe were at my direction and personally dictated by me. I have reviewed the chart and agree that the record accurately reflects my personal performance of the history, physical exam, medical decision making, and the department course for this patient. I have also personally directed, reviewed, and agree with the discharge instructions and disposition.
== END 2018-11-05 11:02 | disposition home or self-care (01) ==
LOC: C.ER 10:06
DX: R04.0 Epistaxis (principal); I50.9 Heart failure, unspecified; I10 Essential (primary) hypertension

== ENCOUNTER 2018-11-18 08:19 | Emergency (ER) | payer MEDICARE ==
[2018-11-18 08:19] VITALS: BMI 24.8
[2018-11-18] MEDS ORDERED: Sodium Chloride 0.9% 1,000 ML IV ONE (09:10)
[2018-11-18 09:41] LABS: BASO % 0.7 % (0.0-2.0); EOS # 0.1 K/uL (0.0-0.7); EOS % 1.5 % (0.0-4.0); LYMPH # 0.7 K/uL (1.0-4.3); LYMPH % 12.7 % (20.0-40.0); MEAN CORPUSCULAR HEMOGLOBIN 29.2 pg (27.0-31.0); MEAN CORPUSCULAR HGB CONC 32.8 g/dL (33.0-37.0); MEAN PLATELET VOLUME 9.1 fL (7.2-11.7); MONO % 17.2 % (0.0-10.0); NEUT % 67.9 % (50.0-75.0); RBC 3.82 Mil/uL (4.40-5.90); RED CELL DISTRIBUTION WIDTH 14.4 % (11.5-14.5)
[2018-11-18] MEDS ORDERED: Sodium Chloride 0.9% 1,000 ML ONE (09:45)
[2018-11-18 09:49] LABS: VENOUS BLOOD GAS BASE EXCESS -1.7 mmol/L (0.0-2.0); VENOUS BLOOD GAS PCO2 38 mmHg (40-60); VENOUS BLOOD GAS PO2 33 mm/Hg (30-55); VENOUS BLOOD PH 7.39 (7.32-7.43)
--- NOTE | 2018-11-18 09:53 | C.PDOC ---
History Of Present Illness 63 y/o male brought to ER by ambulance for evaluation of fever,chills, cough, nausea, vomiting, and abdominal pain which have been present for the past few days. Patient states that he was in his office when his co-workers noticed that he was not feeling well. They called for the ambulance and the ambulance transferred him to the ER. Patient reports that he has decreased PO intake. He notes that also had nosebleed which resolved yesterday.Denies having CP, SOB, and urinary symptoms. Time Seen by Provider: 11/18/18 08:40 Chief Complaint (Nursing): Flu-like Symptoms History Per: Patient History/Exam Limitations: no limitations Onset/Duration Of Symptoms: Days Current Symptoms Are (Timing): Still Present Severity: Moderate Past Medical History Reviewed: Historical Data, Nursing Documentation, Vital Signs Vital Signs: Last Vital Signs Temp 102.3 F H 11/18/18 08:40 Pulse 76 11/18/18 08:40 Resp 18 11/18/18 08:40 BP 167/82 H 11/18/18 08:40 Pulse Ox 99 11/18/18 08:40 - Medical History PMH: Anemia, Anxiety, Arthritis, CHF, Depression, Gastritis, Gastrointestinal Ulcer (PEPTIC), HTN, Pancreatitis, Peripheral Edema Denies: HIV, Kidney Stones, Chronic Kidney Disease, Seizures, Sexually Trans mitted Disease Surgical History: Pacemaker - [facility] Procedures ALCOHOL DETOXIFICATION (05/03/13) DETOXIFICATION SERVICES FOR SUBSTANCE ABUSE TREATMENT (05/15/18) EXCISION OF DESCENDING COLON, ENDO, DIAGN (03/16/18) EXCISION OF STOMACH, ENDO, DIAGN (03/16/18) EXTIRPATION OF MATTER FROM LARGE INTESTINE, ENDO (01/09/17) FLUOROSCOPY OF LEFT HEART USING LOW OSMOLAR CONTRAST (07/13/17) FLUOROSCOPY OF MULT COR ART USING L OSM CONTRAST (07/13/17) GROUP HEAD OF GLOBAL STRATEGIC PARTNERSHIPS FOR SUBSTANCE ABUSE TREATMENT, PSYCHOEDUCATION (05/15/18) GROUP HEAD OF GLOBAL STRATEGIC PARTNERSHIPS FOR SUBSTANCE ABUSE, COGNITIVE BEHAVIORAL (05/15/18) GROUP PSYCHOTHERAPY (01/24/16) INDIV PSYCHOTHERAPY FOR SUBSTANCE ABUSE TREATMENT, SUPPORT (05/15/18) INDIV PSYCHOTHERAPY FOR SUBSTANCE ABUSE, COGNITIV BEHAVIORAL (05/15/18) INDIV PSYCHOTHERAPY FOR SUBSTANCE ABUSE, PSYCHOEDUCATION (05/15/18) INSERT OF MONITOR DEV INTO CHEST SUBCU/FASCIA, OPEN APPROACH (12/18/16) INSPECTION OF UPPER INTESTINAL TRACT, ENDO (03/16/18) MEASURE OF ARTERIAL PRESSURE, PERIPHERAL, SHEET METAL ERECTOR APPROACH (12/18/16) MEASURE OF CARDIAC SAMPL & PRESSURE, L HEART, PERC APPROACH (07/13/17) MEASUREMENT OF CARDIAC RHYTHM, EXTERNAL APPROACH (12/18/16) TRANSFUSE NONAUT RED BLOOD CELLS IN PERIPH ART, PERC (01/09/17) TRANSFUSE NONAUT RED BLOOD CELLS IN PERIPH VEIN, PERC (03/16/18) Family History: States: No Known Family Hx - Social History Hx Tobacco Use: No (quit 2 months now) Hx Alcohol Use: Yes (1/2 pint vodka/day) Hx Substance Use: Yes - Immunization History Hx Tetanus Toxoid Vaccination: Yes Hx Influenza Vaccination: Yes Hx Pneumococcal Vaccination: No Review Of Systems Except As Marked, All Systems Reviewed And Found Negative. Constitutional: Positive for: Fever, Chills Cardiovascular: Negative for: Chest Pain Respiratory: Positive for: Cough. Negative for: Shortness of Breath Gastrointestinal: Positive for: Nausea, Vomiting, Abdominal Pain Physical Exam - Physical Exam Appears: Non-toxic, No Acute Distress Skin: Normal Color, Warm, Dry, No Rash Head: Atraumatic, Normacephalic Eye(s): bilateral: Normal Inspection, PERRL, EOMI Ear(s): Bilateral: Normal Nose: Normal, No Epistaxis Oral Mucosa: Moist Tongue: Normal Appearing Lips: Normal Appearing Throat: No Erythema, No Exudate Neck: Normal ROM, Supple Chest: Symmetrical Cardiovascular: Rhythm Regular, No Friction Rub, No Murmur Respiratory: Normal Breath Sounds, No Rales, No Rhonchi, No Stridor, No Wheezing Gastrointestinal/Abdominal: Bowel Sounds (active), Soft, Tenderness (mild inconsistent diffuse abdominal pain), No Guarding, No Rebound Back: Normal Inspection, No CVA Tenderness Extremity: Normal ROM, No Swelling Neurological/Psych: Oriented x3, Normal Speech, Normal Motor Gait: Steady ED Course And Treatment - Laboratory Results Result Diagrams: 11/18/18 09:37 11/18/18 09:37 O2 Sat by Pulse Oximetry: 99 (RA) Pulse Ox Interpretation: Normal Medical Decision Making Medical Decision Making: Plan: --Labs --UA --X-Ray- Ob Series --Tylenol PO --Toradol IV --Zofran IV On re-exam, the patient reports improvement of symptoms. Lungs are CTA, heart is RRR, Abdomen is soft, non-tender and the patient is tolerating Po well. Ambulatory in the ED with steady gait. Follow up with the medical doctor within 1-2 days. Return if worsened. Disposition - Disposition Referrals: Barber Silveira MD [Medical Doctor] - Disposition: HOME/ ROUTINE Disposition Time: 11:33 Condition: GOOD Additional Instructions: Follow up with the medical doctor within 1-2 days. Return if worsened. 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 - Scribe Statement The provider has reviewed the documentation as recorded by the Agustinibe Yovany Andersen Provider Attestation All medical record entries made by the Scribe were at my direction and pe rsonally dictated by me. I have reviewed the chart and agree that the record accurately reflects my personal performance of the history, physical exam, medical decision making, and the department course for this patient. I have also personally directed, reviewed, and agree with the discharge instructions and disposition.
[2018-11-18 09:56] LABS: ALB/GLOB RATIO 1.3 (1.0-2.1); ALBUMIN 4.8 g/dL (3.5-5.0); CALCIUM 8.8 mg/dl (8.6-10.4)
[2018-11-18 10:11] LABS: HEMOGLOBIN 11.1 g/dL (12.0-18.0); MEAN CELL VOLUME 88.9 fL (80.0-94.0); WHITE BLOOD COUNT 5.9 K/uL (4.8-10.8)
[2018-11-18 10:42] VITALS: RESP 16
[2018-11-18 11:33] VITALS: O2SAT 99
--- NOTE | 2018-11-18 12:01 | RAD ---
Date of service: 11/18/2018 PROCEDURE: Radiographs of the chest and abdomen (obstructive series) HISTORY: cough, fever, abd pain, vomiting. COMPARISON: Chest x-ray performed, 05/31/18 CT abdomen pelvis performed 12/13/16 TECHNIQUE: AP radiograph of the chest, with upright and supine radiographs of the abdomen. FINDINGS: CHEST: Heart size appears within normal limits. Interloop recording device projects over the medial left chest. No focal consolidation, significant pleural effusion, or definite pneumothorax. Please note that chest x-ray has limited sensitivity for the detection of pulmonary masses. ABDOMEN AND PELVIS: Mild constipation. Nonspecific bowel gas pattern. No definite free air. Pelvic calcifications, likely phleboliths. Scoliosis. Degenerative changes of the spine. IMPRESSION: Mild constipation.
[2018-11-18 12:13] VITALS: BP 124/71; PULSE 83; TEMP 99
== END 2018-11-18 12:33 | disposition home or self-care (01) ==
LOC: C.ER 08:19
DX: J11.1 Influenza due to unidentified influenza virus with other respiratory manifestations (principal)
CPT/HCPCS: 74022; 80053; 82550; 82803; 85025; 87070; 87430; 87804; 96361; 96374; 96375; 99284; J1885; J2405; J7030